=== PATIENT | male | born 1970 | race Caucasian/White ===

== ENCOUNTER → 2018-06-17 16:04 | Outpatient (REF) | payer OTHER, SELFPAY ==
[2018-06-20 16:42] LABS: 6-monoacetylmorphine Not Detected ng/mL (Cutoff: 25); Amphetamines Negative ng/mL (Cutoff: 500); Barbiturates Negative ng/mL (Cutoff: 200); Benzodiazepines Negative ng/mL (Cutoff: 100); Buprenorphine Not Detected ng/mL (Cutoff: 5); Cocaine Negative ng/mL (Cutoff: 150); Codeine Not Detected ng/mL (Cutoff: 25); Comment Normal; Creatinine, U 93.7 mg/dL; Dihydrocodeine Not Detected ng/mL (Cutoff: 25); EDDP Not Detected ng/mL (Cutoff: 25); Fentanyl Not Detected ng/mL (Cutoff: 2); Hydrocodone Not Detected ng/mL (Cutoff: 25); Hydromorphone Not Detected ng/mL (Cutoff: 25); Hydromorphone-3-beta-glucuroni Not Detected ng/mL (Cutoff: 100); Meperidine Not Detected ng/mL (Cutoff: 25); Methadone Not Detected ng/mL (Cutoff: 25); Morphine Not Detected ng/mL (Cutoff: 25); N-desmethyltapentadol Not Detected ng/mL (Cutoff: 50); Naloxone Not Detected ng/mL (Cutoff: 25); Norbuprenorphine Not Detected ng/mL (Cutoff: 5); Norfentanyl Not Detected ng/mL (Cutoff: 2); Norhydrocodone Not Detected ng/mL (Cutoff: 25); Normeperidine Not Detected ng/mL (Cutoff: 25); Noroxycodone Not Detected ng/mL (Cutoff: 25); Noroxymorphone Not Detected ng/mL (Cutoff: 25); O-desmethyltramadol Not Detected ng/mL (Cutoff: 25); Phencyclidine Negative ng/mL (Cutoff: 25); Propoxyphene Not Detected ng/mL (Cutoff: 25); Specific Gravity 1.014; Tapentadol Not Detected ng/mL (Cutoff: 25); Tetrahydrocannabinol Negative ng/mL (Cutoff: 50); Tramadol Not Detected ng/mL (Cutoff: 25); pH 5.5
== END ==
LOC: LBN 16:04
PROVIDERS: PCP Emergency Medicine; Visit Provider Nurse Practitioner Family
DX: G89.29 Other chronic pain (principal)
CPT/HCPCS: 80307; 80364

== ENCOUNTER 2018-09-30 09:24 | Outpatient (CLI) | payer MEDICAID, SELFPAY ==
--- NOTE | 2018-09-30 15:00 | DI.RAD_ITS ---
SYMPTOM/DIAGNOSIS: RT HIP PAIN, M25.551 RIGHT HIP AND PELVIS: The hip joint spaces are well maintained. There is mild bilateral acetabular spurring. The SI joints and pubic symphysis are unremarkable. IMPRESSION: Mild degenerative changes.
== END 2018-09-30 09:44 ==
PROVIDERS: PCP Emergency Medicine; Visit Provider Neurological Surgery
DX: M25.551 Pain in right hip (principal); M16.11 Unilateral primary osteoarthritis, right hip
CPT/HCPCS: 73502

== ENCOUNTER 2018-11-28 00:32 | Outpatient (CLI) | payer MEDICAID, SELFPAY ==
--- NOTE | 2018-11-28 08:30 | DI.RAD_ITS ---
SYMPTOM/DIAGNOSIS: CHRONIC RT HIP PAIN, M25.551, OTHER CHRONIC PAIN, G89.29 RIGHT HIP: A frontal image of the right hip demonstrates injection of contrast into the right hip joint. Please see Dr. Taylor's procedure report for further information.
[2018-11-28] MEDS: Omnipaque 300 MG/ML 10 ML BTL IJ (08:57)
[2018-11-28] MEDS: Bupivacaine 0.5% Pres-Free 10 ML VIAL 6 ML IJ (08:58)
[2018-11-28] MEDS: methylPREDNISolone ACETATE 80 MG/ML VIAL IM (08:58)
--- NOTE | 2018-11-28 22:26 | W.PROCNOTE ---
Date of service: 11/28/18 Time of Service: 09:28 Procedure Note Date of procedure: 11/28/18 Procedure: Right Hip Injection with Fluoroscopic Guidance Surgeon/Proceduralist/Physician: Remy Taylor Procedure Diagnosis: Right Hip Osteoarthritis Procedure Indications: Prasanna has had persistent pain of the RIGHT hip and flank. Noninvasive measures have been tried. To serve as both diagnostic and therapeutic, an injection under fluoroscopy was recommended. I had discussed the risks of the procedure and the patient elected to proceed. Procedure Description: Prasanna was greeted in the flouroscopy room. The correct side was identified and the consent was reviewed with the patient and signed. The patient was then placed in the supine position on the fluoroscopy table. The RIGHT hip was then prepped with Chloraprep. The anterolateral injection starting point was identiifed by bony landmarks and fluoroscopy. The skin and soft tissue in the tract of the injection was anesthetized with 1% Lidocaine. A spinal needle was then inserted deep into the hip joint at the level of the lateral femoral neck under fluoroscopic guidance. A small amount of Omnipaque solution was injected to confirm intraarticular placement. Once confirmed, the hip was injected with 6cc of 0.5% Bupivicaine and 80mg of Depo-Medrol. A bandaid was placed on the injection site. The patient tolerated the procedure well and noted improvement in pre-injection pain.
== END 2018-11-28 00:52 ==
PROVIDERS: PCP Emergency Medicine; Visit Provider Student in an Organized Health Care Education/Training Program
DX: M25.551 Pain in right hip (principal); M16.11 Unilateral primary osteoarthritis, right hip; G89.29 Other chronic pain
CPT/HCPCS: 20610; 77002; 73501; J1040

== ENCOUNTER 2019-02-19 10:55 | Outpatient (CLI) | payer MEDICAID, SELFPAY ==
--- NOTE | 2019-02-19 13:45 | DI.RAD_ITS ---
SYMPTOMS/DIAGNOSIS: WRIST PAIN/INJURY S/P FALL 2 WEEKS AGO, S69.90XA RIGHT WRIST: There is no evidence of a fracture or dislocation.
== END 2019-02-19 11:15 ==
PROVIDERS: PCP Emergency Medicine; Visit Provider Internal Medicine
DX: M25.531 Pain in right wrist (principal); S69.91XA Unspecified injury of right wrist, hand and finger(s), initial encounter
CPT/HCPCS: 73110

== ENCOUNTER 2019-04-12 08:51 | Outpatient (CLI) | payer MEDICAID, SELFPAY ==
[2019-04-12 09:41] LABS: HCT 46.5 % (40.0-50.0); HGB 16.1 g/dL (13.5-17.5); Mean Corp. HGB Concentration 34.6 g/dL (32.0-36.0); Mean Corpuscular Hemoglobin 29.4 pg (27.0-33.0); Mean Platelet Volume 11.4 fL (8.0-11.0); RBC 5.47 m/cumm (4.50-6.00); RBC Distribution Width 13.2 % (11.8-14.1); White Blood Cell Count 4.81 k/cumm (4.4-10.8)
[2019-04-12 10:22] LABS: ALT 62 U/L (12-78); AST 23 U/L (15-37); Albumin 4.1 g/dL (3.4-5.0); Alkaline Phosphatase 79 U/L (46-116); Anion Gap 10.7 mmol/L (3-11); BUN 24 mg/dL (7-18); Bilirubin, Total 0.4 mg/dL (0.2-1.0); C-Reactive Protein 0.42 mg/dL (0.0-0.3); CO2 26.3 mmol/L (21.0-32.0); CREATININE 1.26 mg/dL (0.70-1.30); Calcium 9.2 mg/dL (8.5-10.1); Chloride 102 mmol/L (98-107); Glucose 105 mg/dL (70-100); Potassium 4.3 mmol/L (3.5-5.1); Sodium 139 mmol/L (136-145); TSH 2.31 uIU/mL (0.358-3.74); Total Protein 7.2 g/dL (6.4-8.2)
[2019-04-12 10:26] LABS: Platelet Count 81 x1000/uL (130-400)
[2019-04-12 10:36] LABS: GGT 66 U/L (15-85)
== END 2019-04-12 09:11 ==
PROVIDERS: PCP Emergency Medicine; Visit Provider Emergency Medicine
DX: R53.83 Other fatigue (principal); E03.9 Hypothyroidism, unspecified
CPT/HCPCS: 36415; 80053; 85027; 82977; 84443; 86140

== ENCOUNTER 2019-10-21 00:41 | Outpatient (CLI) | payer MEDICAID, SELFPAY ==
--- NOTE | 2019-10-21 11:12 | ETT_ITS ---
APPROVED REPORT Exam: Exercise Treadmill Patient Location: Out-Patient Room/Bed: Stress Nurse: Marian Zavala RN BMI: 31.15 Baseline Rhythm: Sinus rhythm Indications: Chest pain. Pt arrives today with a 2 out of 10 constant chest pressure, that is tender to palpation over left chest wall. Pt reports daily chest pains and fluttering sensations. Pt reports a history of mitral valve prolapse. Medical History Medical History: Mitral valve proloapse, Depression Cardiac Medications: Mirapex for restless legs., Allergies: No known drug allergies Cardiac Risk Factors: FHX of CAD, Hyperlipidemia, Asthma Pretest Chest Pain Characteristics: Non-exertional Chest pain Exercise History: Physically active Lung Sounds: Clear to auscultation Heart Sounds: Regular Stress Test Details Test: Exercise stress testing was performed using a Bar protocol. Rest Stress HR Max Heart Rate (APMHR): 173 bpm Resting HR Supine: 80 bpm Target HR (85% APMHR): 147 bpm Resting HR Standin bpm Max HR Achieved: 182 bpm % of APMHR: 105 Recovery HR: 103 bpm HR response to stress: Normal HR response to stress BP Resting BP Supine: 128/80 mmHg Resting BP Standin/82 mmHg Max BP: 172/76 mmHg Recovery BP: 140/80 mmHg BP response to stress: Normal blood pressure response to stress. ECG Resting ECG: Sinus Rhythm ST Change: none Ectopy: none Stress ECG: Sinus Tachycardia ST Change: No significant ST segment changes. Arrhythmia: None Recovery ECG: Sinus Rhythm Recovery ST Change: No significant ST segment changes Clinical Reason for Termination: Fatigue, Dyspnea Exercise duration: 9 min31 sec Highest Stage Achieved: Stage 3: 3.4 mph at 14% grade. Exercise capacity: 11.01 METs Functional Capacity: Average Capacity Scale: Active Angina Score: Non-Limiting Stress ECG Conclusion 1. The patient exercised for 9 minutes and 30 seconds (11 METS) 2. There was no evidence of ischemia on the ECG portion of the exam. 3. The Worthington Score (9) estimates an annual cardiovascular mortality of 0% and a five year survival of 95%. Using the Worthington Score there is a low probability of any angiographic coronary disease. Protocol Used: Bar Protocol Stress Test Summary STAGE Time (mins) Speed (mph) Grade (%) HR BP SYMPTOMS METS Supine 80 128/80 2 out of 10 chest pressure at rest, pre-exercise. Standing 88 130/82 1 3 1.7 10 111 132/80 4.6 2 6 2.5 12 133 144/82 7 3 9 3.4 14 174 164/80 10.2 4 12 4.2 16 174 No change in quality or severity of the 2 out of 10 chest pressure. 12.9 17.2 1 min recovery 125 172/76 3 min recovery 108 170/78 6 min recovery 105 150/80 9 min recovery 107 140/80
--- NOTE | 2019-10-21 11:25 | DI.RAD_ITS ---
EXAM: XR CHEST 2V PA LATERAL INDICATION: chest pain,R07.9. COMPARISON: 01/12/2017 TECHNIQUE: 2D digital imaging was performed. FINDINGS: Heart size is normal. The lungs are suboptimally inflated but clear. No infiltrate, effusion or pne umothorax is seen. IMPRESSION: No acute abnormality.
== END 2019-10-21 01:01 ==
PROVIDERS: PCP Emergency Medicine; Visit Provider Emergency Medicine
DX: R07.9 Chest pain, unspecified (principal); R00.0 Tachycardia, unspecified; E78.5 Hyperlipidemia, unspecified; J45.909 Unspecified asthma, uncomplicated; Z82.49 Family history of ischemic heart disease and other diseases of the circulatory system; Z86.79 Personal history of other diseases of the circulatory system
CPT/HCPCS: 71046; 93017

== ENCOUNTER 2019-11-04 01:14 | Outpatient (CLI) | payer MEDICAID, SELFPAY ==
--- NOTE | 2019-11-04 07:46 | DI.US_ITS ---
APPROVED REPORT EXAM: Comprehensive 2D, Doppler, and color-flow Echocardiogram Patient Location: Out-Patient Bottom Painter: Ursula Sanderson RDCS (AE) Rhythm: NSR Indications: chest pain r07.09 Conclusion Left Ventricle : The left ventricle is normal size. There is normal left ventricular wall thickness. Left ventricular systolic function is normal. There is normal LV segmental wall motion. The left ve ntricular diastolic function is normal. LVEF is estimated to be 55-60%. Right Ventricle : The right ventricle is normal in size. The right ventricular systolic function appe ars normal. Atria : The left atrium size is normal. The right atrium size is normal. Aortic Valve : Aortic valve is trileaflet. There is no aortic valvular stenosis. Trace aortic regurgi tation. Mitral Valve : Mitral valve leaflets are thickened. trivial mitral regurgitation without significant prolapse. No evidence of mitral valve stenosis. Tricuspid Valve : Tricuspid valve leaflets are mildly thickened but open well. Trivial to mild tricus pid regurgitation. Great Vessels : The aortic root is normal in size. The ascending aorta size is normal. The IVC was n ot well visualized. There is no prior echocardiogram available for comparison. Wall motion Left Ventricle The left ventricle is normal size. Left ventricular systolic function is normal. There is normal left ventricular wall thickness. There is normal LV segmental wall motion. The left ventricular diastolic function is normal. LVEF is estimated to be 55-60%. Right Ventricle The right ventricle is normal in size. The right ventricular systolic function appears normal. Atria The left atrium size is normal. The right atrium size is normal. Aortic Valve Aortic valve is trileaflet. There is no aortic valvular stenosis. Trace aortic regurgitation. Mitral Valve Mitral valve leaflets are thickened. No evidence of mitral valve stenosis. trivial mitral regurgitati on without significant prolapse. Tricuspid Valve Tricuspid valve leaflets are mildly thickened but open well. Trivial to mild tricuspid regurgitation. Pulmonic Valve Mild pulmonic regurgitation. Great Vessels The aortic root is normal in size. The ascending aorta size is normal. The IVC was not well visualize d. Pericardium There is no pericardial effusion. 2D Dimensions IVSd 1.00 cm M: 0.6-1.2 LV EDV A2C 77.00 mL PWd 1.05 cm M: 0.6 - 1.2 LV EDV A4C 74.80 mL LVDd 4.05 cm M: 4.2 - 5.8 LA Volume Index A2C 16.61 mL/m2 LVDs 2.65 cm M: 2.5 - 4.0 LA Volume Index A4C 23.26 mL/m2 Aortic Root 3.25 cm M: 3.1 - 3.7 LA Volume Index Biplane 20.19 mL/m2 RVID Base (AP4) 3.82 cm (M/F) 2.5-4.1 LA Area A4C 16.84 cm2 RA Area A4C 12.31 cm2 LA Area A2C 14.62 cm2 LVOT 1.95 cm (M/F) 1.5-2.5 EF AP4 63.90 % Ascending Aorta 2.95 cm M: 2.6 - 3.4 EF AP2 54.81 % LVEF (Teich) 63.12 % EF BP 57.91 % LVEF (Hartley's) 57.91 % M: 52 - 72 LV Volume 58.08 mL M: 62 - 150 LV Volume Index 27.78 mL/m2 M: 34 - 74 FS 33.75 % LV Diastology E/A Ratio 1.2 MED E' 0.09 (>0.07 m/s) LV E/e MED 8.20 (<14) LAT E' 0.12 (>0.1 m/s) LV E/e LAT 5.95 (<14) Aortic Valve LVOT Area 3.05 cm2 LVOT Vmax 0.98 m/s LVOT Mean Juan Carlos. 0.73 m/s LVOT Peak Gr. 3.8 mmHg LVOT Mean Gr. 2.3 mmHg AoV Area/ BSA (Vmax) 1.01 cm2/m2 LVOT VTI 0.167 m AoV Vmax 1.41 (0.5-1.3 m/s) CAREN Mean Juan Carlos. Index 1.10 cm2/m2 AoV Mean Juan Carlos. 0.96 m/s AoV Peak Grad 8.0 mmHg AoV Mean Grad 4.1 (<5 mmHg) AoV VTI 0.281 (0.18-0.25 m) AoV Area VTI 2.08 (2.5-4.5 cm2) AoV Area/ BSA (VTI) 0.99 cm/m2 Mitral Valve MV E Max Juan Carlos. 0.70 (0.4-1.3 m/s) MV A Velocity 0.60 (0.4-1.3 m/s) E/A Ratio 1.11 MV Decel. Time 192.35 (160-240 msec) MV PHT 55.79 msec MVA PHT 3.90 cm2 Pulmonary Valve PV Peak Velocity 1.06 (0.5-1.5 m/s) RVOT Peak Gr. 1.44 mmHg RVOT Peak Juan Carlos. 0.60 m/s RVOT Mean Gr. 1.00 mmHg RVOT VTI 0.10 m Tricuspid Valve TR P. Velocity 2.18 m/s TV Regurg Vmax 2.18 m/s RAP Estimate 3.00 mmHg RVSP 21.93 mmHg TR P. Gradient 18.90 mmHg
== END 2019-11-04 01:34 ==
PROVIDERS: PCP Emergency Medicine; Visit Provider Emergency Medicine
DX: R07.9 Chest pain, unspecified (principal); E78.5 Hyperlipidemia, unspecified; Z82.49 Family history of ischemic heart disease and other diseases of the circulatory system
CPT/HCPCS: 93306

== ENCOUNTER 2020-01-14 07:52 | Outpatient (CLI) | payer MEDICAID, SELFPAY ==
[2020-01-14 08:14] LABS: Abs Immature Grans 0.02 k/cumm (0.0-0.09); Absolute Basophil Count 0.01 k/cumm (0.0-0.2); Absolute Eosinophil Count 0.13 k/cumm (0.0-0.7); Absolute Lymphocyte Count 2.29 k/cumm (1.2-3.4); Absolute Monocyte Count 0.48 k/cumm (0.11-0.7); Absolute Neutrophil Count 2.17 k/cumm (1.2-6.7); Basophils % 0.2; Eosinophils % 2.5; HCT 47.2 % (40.0-50.0); HGB 16.3 g/dL (13.5-17.5); Immature Grans % 0.4 %; Lymphocytes % 44.9; Mean Corp. HGB Concentration 34.5 g/dL (32.0-36.0); Mean Corpuscular Hemoglobin 29.1 pg (27.0-33.0); Mean Corpuscular Volume 84.3 fL (80-95); Mean Platelet Volume 11.7 fL (8.0-11.0); Monocytes % 9.4; Neutrophils % 42.6; RBC Distribution Width 13.1 % (11.8-14.1)
[2020-01-14 08:36] LABS: Diff Comment Diff Reviewed; Platelet Count 66 x1000/uL (130-400); RBC Morphology Normal
== END 2020-01-14 08:12 ==
PROVIDERS: PCP Emergency Medicine; Visit Provider Nurse Practitioner
DX: D69.6 Thrombocytopenia, unspecified (principal)
CPT/HCPCS: 36415; 85025

== ENCOUNTER 2020-04-01 11:29 | Outpatient (CLI) | payer MEDICAID, SELFPAY ==
--- NOTE | 2020-04-01 10:00 | DI.RAD_ITS ---
EXAM: XR HIP RT COMPLETE AP PELVIS INDICATION: R hip pain. COMPARISON: MR MR lower joint RT wo from 10/16/2018 TECHNIQUE: 2D digital imaging was performed. FINDINGS: There is mild acetabular spurring the right superior acetabulum. There is moderate spurring from th e left superior acetabulum. The hip joint spaces are well maintained. The femoral head contours az ear normal. The SI joints and pubic symphysis are unremarkable. Bones are normally mineralized. IMPRESSION: Mild degenerative changes of both hips. DATA REPOSITORY: RADIATION DOSE DELIVERED:
== END 2020-04-01 11:49 ==
PROVIDERS: PCP Emergency Medicine; Referring Provider Emergency Medicine; Visit Provider Physician Assistant
DX: M25.551 Pain in right hip (principal); M16.0 Bilateral primary osteoarthritis of hip
CPT/HCPCS: 73502

== ENCOUNTER 2020-04-07 01:39 | Outpatient (CLI) | payer MEDICAID, SELFPAY ==
--- NOTE | 2020-04-07 13:45 | DI.MRI_ITS ---
EXAM: MR LOWER JOINT RT WO CLINICAL HISTORY: PAIN ,M25.551 PAIN RT HIP. TECHNIQUE: Multiplanar multisequence MRI was performed. COMPARISON: MR MR lower joint RT wo from 10/16/2018 FINDINGS: MR examination of the hip was performed according to the usual protocol. Bones: No bony signal abnormality seen in the region surveyed. Articular cartilage: Probable slight thinning articular cartilage right and left hip. Tendons: Minimally increased signal at gluteal attachments on the right femur. No other significant tendinous abnormality seen in either hip. This is a very subtle finding. Muscles: Abnormal signal identified. Internal pelvis: No adenopathy, no mass identified. Unremarkable appearance of urinary bladder, pros dan, seminal vesicles, and rectosigmoid. IMPRESSION: Probable mild bilateral articular cartilage thinning of the hips, minimally abnormal signal consisten t with tendinosis at the gluteus attachments on the greater trochanter on the right. No other signif icant findings. DATA REPOSITORY:
== END 2020-04-07 01:59 ==
PROVIDERS: PCP Emergency Medicine; Visit Provider Student in an Organized Health Care Education/Training Program
DX: M25.551 Pain in right hip (principal); M76.01 Gluteal tendinitis, right hip
CPT/HCPCS: 73721

== ENCOUNTER 2020-04-08 02:09 | Outpatient (CLI) | payer MEDICAID, SELFPAY ==
--- NOTE | 2020-04-08 07:30 | DI.RAD_ITS ---
EXAM: RF JOINT INJECTION FLUORO GUID CLINICAL HISTORY: CHRONIC HIP PAIN,M25.559,G89.29 TECHNIQUE: COMPARISON: No exams were available for comparison FINDINGS: Fluoroscopy was utilized by Dr. Taylor during right hip injection. Hard copy shows right hip intra -articular injection. IMPRESSION:
[2020-04-08] MEDS: Bupivacaine 0.5% Pres-Free 10 ML VIAL 6 ML IJ (15:18)
[2020-04-08] MEDS: Omnipaque 300 MG/ML 10 ML BTL IJ (15:19)
[2020-04-08] MEDS: methylPREDNISolone ACETATE 80 MG/ML VIAL IM (15:20)
--- NOTE | 2020-04-08 17:50 | W.PROCNOTE ---
Date of service: 04/08/20 Time of Service: 15:15 Procedure Note Date of procedure: 04/08/20 Procedure: Right Hip Injection with Fluoroscopic Guidance Surgeon/Proceduralist/Physician: Remy Taylor Procedure Diagnosis: Right Hip Pain, Labral Tear Procedure Indications: Prasanna has had persistent pain of the RIGHT hip and groin. Noninvasive measures have been tried. To serve as both diagnostic and therapeutic, an injection under fluoroscopy was recommended. I had discussed the risks of the procedure and the patient elected to proceed. Procedure Description: Prasanna was greeted in the flouroscopy room. The correct side was identified and the consent was reviewed with the patient and signed. The patient was then placed in the supine position on the fluoroscopy table. The RIGHT hip was then prepped with Chloraprep. The anterolateral injection starting point was identiifed by bony landmarks and fluoroscopy. The skin and soft tissue in the tract of the injection was anesthetized with 1% Lidocaine. A spinal needle was then inserted deep into the hip joint at the level of the lateral femoral neck under fluoroscopic guidance. A small amount of Omnipaque solution was injected to confirm intraarticular placement. Once confirmed, the hip was injected with 6cc of 0.5% Bupivicaine and 80mg of Depo-Medrol. A bandaid was placed on the injection site. The patient tolerated the procedure well.
== END 2020-04-08 02:29 ==
PROVIDERS: PCP Emergency Medicine; Visit Provider Student in an Organized Health Care Education/Training Program
DX: M25.551 Pain in right hip (principal); G89.29 Other chronic pain
CPT/HCPCS: 20610; 77002; J1040

== ENCOUNTER 2020-04-27 08:00 | Outpatient (CLI) | payer MEDICAID, SELFPAY ==
[2020-04-30 02:37] LABS: SARS-CoV-2 RNA Undetected (Undetected); SARS-CoV-2 Specimen Source Nasopharynx
== END 2020-04-27 08:20 ==
PROVIDERS: PCP Emergency Medicine; Visit Provider Emergency Medicine
DX: Z11.59 Encounter for screening for other viral diseases (principal)
CPT/HCPCS: U0003

== ENCOUNTER 2020-05-31 08:15 | Outpatient (CLI) | payer MEDICAID, SELFPAY ==
--- NOTE | 2020-05-31 08:00 | DI.RAD_ITS ---
EXAM: XR PELVIS AP CLINICAL HISTORY: preoperative template. TECHNIQUE: 2D digital imaging was performed. COMPARISON: CR XR HIP RT COMPLETE AP PELVIS from 04/01/2020 FINDINGS: BONES: No acute fracture is present. No bony destructive lesion is seen. JOINTS: No dislocation present. Mild joint space narrowing is present. There is acetabular spurring, greater on the left superiorly. SOFT TISSUE: Normal. IMPRESSION: Stable degenerative changes of the left hip. DATA REPOSITORY: RADIATION DOSE DELIVERED:
== END 2020-05-31 08:35 ==
PROVIDERS: PCP Emergency Medicine; Referring Provider Emergency Medicine; Visit Provider Student in an Organized Health Care Education/Training Program
DX: M16.12 Unilateral primary osteoarthritis, left hip (principal)
CPT/HCPCS: 72170

== ENCOUNTER 2020-06-11 01:46 | Outpatient (CLI) | payer MEDICAID, SELFPAY ==
[2020-06-11 10:15] LABS: HGB 15.9 g/dL (13.5-17.5); MCH 29.1 pg (27.0-33.0); MCHC 33.8 % (32.0-36.0); MCV 85.9 fL (80-95); MPV 12.1 fL (8.0-11.0); RBC 5.47 10^6/uL (4.36-5.78); RDW-SD 40.4 fL; WBC 4.72 10^3/uL (4.4-10.8)
[2020-06-11 10:49] LABS: Platelet Count 65 10^3/uL (130-400)
[2020-06-11 11:15] LABS: Anion Gap 11.3 mmol/L (3-11); BUN 23 mg/dL (7-18); CO2 24.7 mmol/L (21.0-32.0); CREATININE 1.27 mg/dL (0.70-1.30); Calcium 9.2 mg/dL (8.5-10.1); Chloride 104 mmol/L (98-107); Glucose 95 mg/dL (74-106); Potassium 4.2 mmol/L (3.5-5.1); Sodium 140 mmol/L (136-145)
[2020-06-12 18:08] LABS: COVID-19 RT-PCR Result NEGATIVE (Negative)
== END 2020-06-11 02:06 ==
PROVIDERS: PCP Emergency Medicine; Visit Provider Student in an Organized Health Care Education/Training Program
DX: M25.551 Pain in right hip (principal); G89.29 Other chronic pain
CPT/HCPCS: 36415; 80048; 85027; 86850; 86900; 86901; U0003

== ENCOUNTER 2020-06-15 09:27 | Observation (INO) | payer MEDICAID, SELFPAY ==
[2020-06-15] VITALS (11 sets, daily range): BP systolic 90–130; BP diastolic 51–84; PULSE 64–87; RESP 16–24; TEMP 35.7–36.8; O2SAT 89–99
[2020-06-15] MEDS: Celecoxib 200 MG CAP 400 MG PO (09:57)
[2020-06-15] MEDS: Acetaminophen 500 MG TAB 1000 MG PO (09:57)
[2020-06-15] MEDS: Lactated Ringers 1,000 ML 80 ML IV ×2 (09:58→14:45)
--- NOTE | 2020-06-15 10:09 | W.PM.DS.N ---
Date of service: 06/15/20 Time of Service: 17:14 DS: Diagnosis Discharge Diagnosis (1) Primary localized osteoarthritis of right hip: Status: Acute Discharge Plan Disposition Patient Disposition: HOME Condition: Good Discharge Details Reason For Visit: RIGHT HIP DJD Admit Date/Time: 06/15/20 09:27 Admit Provider: Remy Taylor Attending Provider: Remy Taylor Primary Care Provider: Kurtis Kingsley Hospital Course Hospital Course: Patient was admitted to the medical/surgical floor following the procedure. The surgery was tolerated well without any notable medical, surgical, or anesthetic complications. Mobilization began postoperatively. He was voiding spontaneously. Vitals were stable. Physical therapy worked with the patient and was cleared for discharge home. No acute medical issues. Pain was controlled on oral regimen. Home Meds and New Rx's Prescriptions: New aspirin 81 mg tablet,delayed release (DR/EC) 81 mg PO BID Qty: 60 RF: 0 acetaminophen 500 mg tablet 1,000 mg PO Q8H PRN (Reason: pain) Qty: 90 RF: 3 pantoprazole 40 mg tablet,delayed release (DR/EC) 40 mg PO DAILY Qty: 30 RF: 0 docusate sodium [Colace] 100 mg capsule 100 mg PO BID PRNQty: 10 RF: 0 ibuprofen 600 mg tablet 600 mg PO TID PRNQty: 90 RF: 3 oxycodone 5 mg tablet 5 mg PO Q4H Qty: 18 RF: 0 Continued cetirizine 10 mg tablet 10 mg PO DAILY Qty: 90 RF: 3 albuterol sulfate 90 mcg/actuation HFA aerosol inhaler 2 puff IH QID Qty: 18 RF: 1 pramipexole [Mirapex] 0.5 mg tablet 0.5 mg PO HS Qty: 90 RF: 3 Discharge Instructions Additional Instructions: Total Hip Discharge Instructions Activity: The most important activity is to walk. You should try to take short walks a few times a day. You have no restrictions on movement or positioning, but do not try to force what you do. You will find some stiffness and weakness with hip flexion (lifting your knee). Do not try to strengthen this too early, continue to practice walking and stairs and this will come. - Outpatient physical therapy can be helpful to help return you to a normal gait and improve your flexibility and strength. This can start around 2 weeks. For some patients, it?s not necessary. Usually this is determined at the time of discharge or at the first post-operative visit. - You should wear the YESICA hose on both legs for 2 weeks. Dressing: Keep the surgical dressing in place for at least one week. After the first week it may be removed and replace with light gauze and tape or nothing. It may get wet after 3 days but avoid soaking the dressing. If it gets wet, just lightly pat dry. It is important to always keep some gauze between skin folds, especially when you are sitting. Spend some time with the wound exposed when you are lying flat as the incision does wrinkle onto itself. Medications: - You should take Tylenol and an anti-inflammatory Celebrex as your primary pain control medications - You have been prescribed a stronger pain medication Oxycodone for breakthrough pain, take as needed as prescribed. - You have also been prescribed a stomach acid reduction agent Pantoprozole to help reduce stomach acid and reflux. - You will be taking Aspirin 81mg twice a day for DVT prevention unless instructed otherwise. - If you have constipation you should take Colace or Miralax (both [id number]). It takes most people 3-4 days to have a bowel movement. Follow-up: 2 weeks Stand Alone Forms: Nursing Discharge Form Referrals: Remy Taylor MD [ [facility] STAFF PHYSICIAN] - 06/28/20 9:00 am Activity:: Activity as Tolerated Equipment/Supplies:: Walker Diet:: Normal Diet Discharge Orders Discharge Orders: Discharge Order (Routine); Ordered 06/15/20 Ordered By: Remy Taylor DS: Summary Status at Discharge Functional status at discharge: uses cane/walker Overall status at discharge: patient is progressing back to baseline Mental Status: mental status grossly normal Speech and Movement: speech and movement normal Mood: congruent mood Affect: normal affect Exam Psych Mental Status: mental status grossly normal Speech and Movement: speech and movement normal Mood: congruent mood Affect: normal affect DS: Data Vitals/I&O Vitals and I&O: Vital Signs Temperature 36.8 C 06/15/20 09:35 Pulse 87 06/15/20 09:35 Pulse Rhythm Regular 06/15/20 09:35 Respiratory Rate 16 06/15/20 09:35 Respiratory Effort 06/15/20 09:35 Respiratory Depth Normal 06/15/20 09:35 Blood Pressure 130/84 06/15/20 09:35 Pulse Oximetry 98 06/15/20 09:35 Oxygen Delivery Method Room Air 06/15/20 09:35 Oxygen Flow Rate 0 06/15/20 09:35 Intake & Output 06/14/20 06/14/20 06/15/20 11:59 23:59 11:59 Weight 97.522 kg 97.7 kg Other: Urine Appearance Clear Clear PFSH Medical History Achilles tendinitis of right lower extremity Asthma Chronic hip pain (Acute) Chronic ITP (idiopathic thrombocytopenia) Costochondritis Depressive disorder Hyperlipidemia Multiple lipomas Osteoarthritis (arthritis due to wear and tear of joints) Restless legs Retrocalcaneal bursitis (back of heel) Thrombocytopenia Surgical History Colonoscopy - MAC (01/04/18) Hx of knee surgery (Acute) with Dr. Chaparro Spinal Surgery Discectomy x 2 Dr. Villalba x2 Vasectomy (~2004) Family History Mother Depression Father Essential hypertension Hyperlipidemia Sister No problems noted. Brother No problems noted. Grandfather Essential hypertension Hyperlipidemia Grandfather No problems noted. Grandmother Alzheimer disease Grandmother Neoplasm Son ADHD Son No problems noted. Son No problems noted. 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
--- NOTE | 2020-06-15 12:15 | DI.RAD_ITS ---
EXAM: XR HIP RT IN OR CLINICAL HISTORY: Primary localized osteoarthritis of right hiP TECHNIQUE: 2D and realtime digital imaging was performed. CONTRAST MATERIAL: Refer to procedure report. COMPARISON: No exams were available for comparison FINDINGS: Fluoroscopy was provided for Dr. Taylor during the performance of a right total hip arthroplasty. Please refer to the procedure report for complete details. Fluoro time: 37.9 seconds IMPRESSION: RADIATION DOSE DELIVERED:
[2020-06-15] MEDS: ceFAZolin 2 GM/50 ML BAG IVPB (12:37)
[2020-06-15] MEDS: Bupivacaine 0.25% Pres-Free 30 ML VIAL (13:55)
[2020-06-15] MEDS: Ketorolac 30 MG/ML VIAL (13:56)
--- NOTE | 2020-06-15 14:21 | W.PM.OP ---
Date of service: 06/15/20 Time of Service: 14:21 Operative Note Operative Note DATE OF PROCEDURE: 06/15/20 PRE-OP DIAGNOSIS: Right Hip Osteoarthritis and Labral tear POST-OP DIAGNOSIS: same PROCEDURE: Right Anterior Total Hip Arthroplasty SURGEON: Remy Taylor TRANSITION OF CARE SPECIALIST: Sary Torrez ANESTHESIA: GETA ESTIMATED BLOOD LOSS: 600 PATHOLOGY: none sent TOURNIQUET TIME: 0 COMPLICATIONS: None Patient was transported to: PACU Patient's condition: stable Implants: 1. Depuy [place] Acetabular Component, 54 mm 2. Depuy Acetabular Liner, [id number] 3. Depuy Corail Standard Collared Femoral Stem, Size 13 4. Depuy Altrx Ceramic Femoral Head, Size 36+5mm Indications: I have seen Prasanna in clinic for symptoms of hip arthritis, confirmed with radiographic findings. He has exhausted nonoperative methods and was having significant limitations in daily function and desired better function and less pain. I discussed the technical details of a hip replacement. I explained the risks of the procedure to include, but not limited to, bleeding, infection, pain, stiffness, fracture, damage to nerves and vessels, damage to muscles and tendons, loosening, instability, leg length inequality, need for repeat procedure, blood clot and cardiopulmonary demise. Despite these risks, Prasanna elected to proceed. Findings: There loss of cartilage over the superior femoral head. This also corresponded to an area of delaminated superior acetabular cartilage. Procedure Description: Prasanna was greeted in the preoperative holding area where the correct side was identified and marked. The consent was reviewed with the patient and signed. The history and physical was updated. All questions were answered. Prasanna was taken back to the operating room. A general anesthetic was administered. The patient was placed into the supine position on the operating room table. The patient was then positioned onto the ARCH table. Both feet were wrapped with Webrill cotton wrap along with Coban. The feet were placed in specialized boots for the ARCH table, well seated within the boot and secured. SCDs were applied. The patient was then slid down onto a peroneal post and the nonoperative leg was secured in a leg atkinson attached to the table. The operative side was placed into the ARCH table attachment and bed height and positioning was secured. A preoperative AP pelvis was obtained to serve as a reference for determining leg lengths. Prophylactic antibiotics in the form of Cefazolin were administered. 1g of Tranxemic Acid was given intravenously within 30 minutes of incision. The right leg was then prepped with Chloraprep and draped in a standard fashion. A second prep with Chloraprep was performed prior to placement of a shower-curtain type drape with Iodine impregnated skin protection. A timeout to confirm correct identity, side and site, procedure, allergies, anesthesia, and medical concerns was performed. An obliquely oriented incision was made starting lateral to the ASIS and running distal over the Tensor Fascia Jess (TFL) muscle belly toward the fibular head, approximately 10cm. The skin and soft tissue was dissected sharply, through Peyman?s fascia, and to the fascia of the TFL. With the fascia and superior border of the IT band identified, the fascia was incised with a new knife just above any perforators from the IT band. The TFL muscle belly was bluntly dissected away from the fascia and moved laterally. The fat between TFL and rectus was identified to ensure the dissection was not within the TFL. Blunt dissection created space between abductors and the capsule and retractor was placed over the lateral femoral neck. The fibers of the rectus femoris tendon were identified and these were freed from the anterior capsule. A second cobra retractor was placed around the medial femoral neck. The TFL was further retracted laterally to show the deep fascia. Careful dissection through this layer identified three main crossing vessels of the lateral femoral circumflex. These were cauterized in multiple locations and then cut without any noticeable bleeding. The TFL was further released bluntly from the deep fascia to expose anterior hip capsule and fat The Bryan orthopaedic retractor was then placed beneath the TFL and against sartorius and medial soft tissues to protect and retract the soft tissues. A T-capsulotomy was then performed starting at the superior lateral acetabulum and moving distally to the intertrochanteric ridge. These capsular flaps were tagged with a No. 1 Ethibond and elevated from within. The capsular flaps were released to the shoulder of the lateral neck and to the lesser trochanter to give excellent visualization of the proximal femur. A neck osteotomy was performed using an oscillating saw based on preoperative templates. This cut started in the shoulder and of the lateral neck and exited medially. The saw was at all times directed medially to avoid injury to the greater trochanter. 6cm of traction was applied to the leg and the osteotomy opened. The femoral head was removed with a corkscrew, making sure to protect the TFL on its exit. This was measured on the back table to determing the starting reamer size. Portions of the rectus obscuring visualization were minimally elevated off the superior acetabulum. An anterior retractor was placed over the anterior wall between capsule and labrum and attached to the Gripper retraction system. A posterior retractor was placed similarly. This provided excellent visualization. The contents of the cotyloid fossa were removed with electrocautery and the labrum was removed with a knife. There was an area of the superior femoral head which was devoid of cartilage and there was an area of delaminated cartilage from the superior acetabulum. Acetabular reaming began with a 48mm reamer. This first reaming was directed anterior to posterior and medial to get down to the true floor. This was inspected and reamed until the true floor was reached. The anterior retractor was then released and entry and exit was provided by traction on the capsular flaps. I then reamed sequentially up to a 54mm reamer where good fit was obtained. The larger reamers were oriented based on anatomical reference of the anterior and lateral hendrix to ensure proper abduction and anteversion. Positioning and size was confirmed with the fluoroscopy. A 54mm Depuy [place] acetabular component was selected. The acetabulum was reamed around the periphery with the selected acetabular size to prevent a rim fit. The deep tissues were irrigated. The acetabular component was then impacted in a position of about 40-45 degrees of abduction and 15-20 degrees of anteversion, using the patient?s anatomy as the ultimate landmark. Fluoroscopy was used to confirm this. There was excellent chiropractic physician of the acetabular component and the inserting handle was removed. The acetabular liner, Depuy [id number] polyethylene liner, was inserted and lined up with the tines of the acetabular component. There was no soft tissue interposition. The liner was then impacted into position and confirmed to be well-seated. A portion of the zuly-articular cocktail was then injected around the acetabulum into the capsule and periosteum. This cocktail consisted of 50cc of 0.25% Bupivicaine and 20cc of Exparel, expanded to a total of 120cc. Traction was released from the femur. The leg was rotated to 120 degrees. Any remaining medial capsule was released until the lesser trochanter was easily palpable. A Sanchez retractor was placed medially. The lateral capsule was further released into the shoulder to allow access to the greater trochanter. A Sanchez retractor was placed over the greater trochanter which allowed the trochanter to flip in front of the capsule for excellent exposure. The leg was brought down into maximal extension and 20 degrees of adduction while ensuring there was no impingement on the acetabulum. Any remnant capsule within the trochanter was released. Piriformis and obturator externis were identified and protected. There was excellent access to the proximal femur. The lateral neck remnant was removed with a rongeur. A blunt canal probe was used to identify the canal and trajectory for later broaching. A box osteotome initiated the broach course. A small curved rasp and a curved curette were used to work laterally. Broaching then began with a size 8 Corail broach. This was inserted manually around the trochanter and into the canal before mallet blows. The broach was seated to a few millimeters below the cut level based on the neck cut and the preoperative template. Sequential broaching was continued with the MZL [employer] pneumatic broaching device until a tight fit was obtained with good rotational control of the femur. A trial standard neck was inserted along with a +5 trial head. The leg was brought out of extension and adduction and then reduced with traction and internal rotation. The leg was stable anteriorly in a position of 30 degrees of extension and 90 degrees of external rotation. Fluoroscopy was used to ensure there was no fracture and the stem was seated well. Leg lengths were checked with an AP pelvis and pelvic reference points. [employer] navigation system was used to confirm appropriate positioning and leg length and offset. Once content with the desired offset and leg lengths, the leg was brought back into extension, external rotation and adduction. The periosteum and surrounding tissue was injected with remaining portion of the zuly-articular cocktail. The proximal femur was irrigated as well as the deep tissues. The Depuy Corail standard collared stem, size 13, was then manually inserted into the proximal femur making sure to control rotation. It was then malleted into position with light blows, giving breaks to allow bone expansion and decrease risk of fracture. The selected Depuy Altrx Ceramic Head, size 36+5mm, was then placed onto the clean and dry trunnion and secured with impaction onto the tapered fit. The leg was brought back out of extension and adduction and reduced with traction and internal rotation. Stability was confirmed with no shuck at 90 degrees of external rotation and 30 degrees of extension. No impingement through range of motion arc. Final x-ray images were obtained with fluoroscopy to confirm adequate positioning and no intraoperative fracture. The deep tissues were thoroughly irrigated with Irrisept chlorhexadine solution. The second dose of TXA 1g was administered intravenously.The capsule was then reapproximated with the previously placed Ethibond sutures. The TFL fascia was finally closed with a No. 2 Stratafix, barbed suture. Deep tissues were then reapproximated with 0 Vicryl and a running 2-0 Vicryl. The skin was closed with a running 4-0 Monocryl in a subcuticular fashion. This was reinforced with skin glue. A Mepilex silver dressing was applied. At the end of the case, all counts were correct. Prasanna was transferred to the hospital bed without difficulty and suffering no apparent complication. Prasanna has a good prognosis. Physical therapy will start today and without restrictions, weight-bearing as tolerated. Aspirin 81mg BID will be used for DVT prophylaxis.
[2020-06-15] MEDS: fentaNYL 100 MCG/2 ML VIAL IVP (15:33)
[2020-06-15] MEDS: ceFAZolin 1 GM/50 ML BAG IVPB (16:20)
--- NOTE | 2020-06-15 16:24 | IN_ITS ---
Date of service: 06/15/20 Time of Service: 16:24 PT Notes Visit Reasons: RIGHT HIP DJD Physical Therapy Inpatient Initial Evaluation Date: 06/15/2020 Referring Doctor: Remy Taylor MD PT Orders: PT CONSULT: Status post Ortho surgery Precautions: Fall. Standard. WBAT on right LE. Patient Profile/Admitting Diagnosis: Kwadwo is a 49-year-old male with primary osteoarthritis of the right hip and is status post right total hip arthroplasty on postoperative day 0. PMHX: Medical History Achilles tendinitis of right lower extremity Asthma Chronic hip pain (Acute) Chronic ITP (idiopathic thrombocytopenia) Costochondritis Depressive disorder Hyperlipidemia Multiple lipomas Osteoarthritis (arthritis due to wear and tear of joints) Restless legs Retrocalcaneal bursitis (back of heel) Thrombocytopenia Surgical History Colonoscopy - MAC (01/04/18) Spinal Surgery Discectomy x 2 Dr. Villalba x2 Vasectomy (~2004) Social History/Home Situation: Lives with in a private home with 4 steps to enter with bilateral rails. Equipment Owned/DME: None. Subjective: Agreeable to PT consult. Reported some mild lightheadedness in sitting but felt better later on. Complains of 3/10 in the right hip but managed to tolerate this afternoon's activities. Objective: General Observation: Bilateral TEDS on. Mepilex Ag over surgical incision. IV in R UE. Mental Status: Alert and oriented x 4 Pain: 3/10 in the right ROM: Right Upper Extremity: Shoulder Flexion WFL. Shoulder abduction WFL. Elbow flexion WFL. Wrist flexion WFL. Opening and closing of hand WFL. Left Upper Extremity: Shoulder Flexion WFL. Shoulder abduction WFL. Elbow flexion WFL. Wrist flexion WFL. Opening and closing of hand WFL. Right Lower Extremity: Hip flexion WFL. Hip abduction WFL. Knee flexion WFL. Ankle dorsiflexion WFL. Ankle plantarflexion WFL. Left Lower Extremity: Hip flexion WFL. Hip abduction WFL. Knee flexion WFL. Ankle dorsiflexion WFL. Ankle plantarflexion WFL. Strength: Right Upper Extremity: Shoulder flexors 5/5. Shoulder abductors 5/5. Elbow flexors 5/5. Elbow extensors 5/5. Armhole Baster Jumpbasting strong. Left Upper Extremity: Shoulder flexors 5/5. Shoulder abductors 5/5. Elbow flexors 5/5. Elbow extensors 5/5. Armhole Baster Jumpbasting strong. Right Lower Extremity: Hip flexors 4/5. Hip abductors 4/5. Knee flexors 5/5. Knee extensors 5/5. Ankle dorsiflexors 5/5. Ankle plantarflexors 5/5. Left Lower Extremity:Hip flexors 5/5. Hip abductors 5/5. Knee flexors 5/5. Knee extensors 5/5. Ankle dorsiflexors 5/5. Ankle plantarflexors 5/5. Sensation: Intact as to pain and pressure on bilateral lower extremities. Bed Mobility/Transfers: Supine to sit independent Sit to supine independent Sit to stand independent Stand to sit SBA Bed to chair SBA Chair to bed SBA Gait: 150 feet x 2 on level surfaces using front wheeled walker with PT on the right LE using swing through heel toe gait pattern with minimal decrease in step height on the right due to beginning discomfort and muscle fatigue in the R hip. Balance: Static Sitting: Normal Dynamic Sitting: Normal Static Standing: Fair Dynamic Standing: Fair Special Tests: Mobility Limitations Standardized Measure [facility]-PAC 6 clicks Basic Mobility Inpatient Short Form: Raw Score: 23 CMS Score: 11% deficit Informed Consent/Education: Patient was instructed in purpose of PT consult and plan of care. Assessment:: Demonstrates functional mobility decline requiring the use of a front wheeled walker for all mobility ADL performance, decreased activity tolerance, and difficulty with walking due to postoperative statusAlexandro Mims is a 49-year-old male with primary unilateral osteoarthritis of the right hip and is status post right total hip arthroplasty on postoperative day 0. Patient presents with clinical signs and symptoms consistent with current/admitting diagnoses that have resulted to mobility limitations, gait instability, generalized weakness, and impairment of motor control as demonstrated by the following impairment level findings: 1. Decreased strength to right hip major muscle groups 2. Impaired standing balance 3. Impaired activity tolerance Impairments are contributing to the following functional limitations: 1. Inability to safely ambulate without assistive device and physical assistance 2. Increase completion time for mobility ADL performance Patient is assessed as a [id number] moderate 49 male complexity based on the following: History: 49-year-old male with impairment level findings, functional limitations, and past medical history as indicated above Examination: Demonstrable impairment in strength, balance, and mobility level with underlying impairments and functional limitations as documented above Presentation: Stable Decision Makin moderate complexity Goals: N/A. PT consult and 1 treatment session only. Plan of Care/Treatment Plan: N/A. PT consult and 1 treatment session only. PT intervention: Session today consisted of initial physical therapy evaluation as well as education and training on mobility ADL performance using the front wheeled walker. DISCHARGE RECOMMENDATIONS: Home when medically cleared by orthopedic surgeon. Outpatient PT services to regain premorbid independent level and facilitate return to vocational activities. TREATMENT CODE/TIME: 9716 2 x 25 minutes, 21426 x 26 minutes beginning at 4:24 PM. Thank you for the opportunity to participate in the care of this patient. Albania Elkins PT, DPT, CLT [facility] [place], [place]
--- NOTE | 2020-06-15 19:45 | NUR.NOTE ---
Nursing Note: pt arrived to med surg floor at 1603 by OR staff from PACU. pt transferred by ortho bed and VSS.
== END 2020-06-15 18:20 | disposition home or self-care (01) ==
LOC: PDS 13:02 → MS 13:03
PROVIDERS: Admitting Provider Student in an Organized Health Care Education/Training Program; PCP Emergency Medicine; Visit Provider Student in an Organized Health Care Education/Training Program
PROC: 0SR904A Replacement of Right Hip Joint with Ceramic on Polyethylene Synthetic Substitute, Uncemented, Open Approach (ICD-10-PCS; CPT 27130; principal; 2020-06-15 10:15)
DX: M16.11 Unilateral primary osteoarthritis, right hip (principal); M25.551 Pain in right hip; Z96.641 Presence of right artificial hip joint; S73.191A Other sprain of right hip, initial encounter; X58.XXXA Exposure to other specified factors, initial encounter
CPT/HCPCS: 27130; 20985; C1776; 97162; 97530; NC; 73501; G0378; J0690; J1100; J1885; J2405; J3010

== ENCOUNTER 2020-06-28 09:39 | Outpatient (CLI) | payer MEDICAID, SELFPAY ==
--- NOTE | 2020-06-28 09:00 | DI.RAD_ITS ---
EXAM: XR HIP RT COMPLETE AP PELVIS CLINICAL HISTORY: 1ST POST OP TECHNIQUE: COMPARISON: CR XR PELVIS AP from 05/31/2020 FINDINGS: Two views were obtained. There is a total hip joint replacement in position on the right. The compo nents appear well seated. There are mild degenerative changes of the left hip noted. IMPRESSION: RADIATION DOSE DELIVERED: Total DLP
== END 2020-06-28 09:59 ==
PROVIDERS: PCP Emergency Medicine; Referring Provider Emergency Medicine; Visit Provider Physician Assistant Surgical
DX: Z96.641 Presence of right artificial hip joint (principal); M16.12 Unilateral primary osteoarthritis, left hip
CPT/HCPCS: 73502

== ENCOUNTER 2020-09-06 09:18 | Outpatient (CLI) | payer MEDICAID, SELFPAY ==
--- NOTE | 2020-09-06 08:00 | DI.RAD_ITS ---
EXAM: XR HIP RT AP LAT ONLY CLINICAL HISTORY: Continued pain R SHOAIB. TECHNIQUE: 2D digital imaging was performed. COMPARISON: CR XR HIP RT COMPLETE AP PELVIS from 06/28/2020 FINDINGS: BONES: There are stable post operative changes present. No fracture or dislocation. JOINTS: The joint spaces are well maintained. SOFT TISSUE: Dystrophic calcification is seen in the soft tissues lateral to the hip. IMPRESSION: Stable postoperative changes. DATA REPOSITORY: RADIATION DOSE DELIVERED:
== END 2020-09-06 09:38 ==
PROVIDERS: PCP Emergency Medicine; Referring Provider Emergency Medicine; Visit Provider Physician Assistant
DX: M25.551 Pain in right hip (principal); Z96.641 Presence of right artificial hip joint
CPT/HCPCS: 73502

== ENCOUNTER 2020-09-10 03:14 | Outpatient (CLI) | payer MEDICAID, SELFPAY ==
[2020-09-10 15:13] LABS: C-Reactive Protein 0.07 mg/dL (0.0-0.3)
[2020-09-10 15:51] LABS: ESR 6 mm/hr (0-15)
== END 2020-09-10 03:34 ==
PROVIDERS: PCP Emergency Medicine; Visit Provider Physician Assistant
DX: Z96.641 Presence of right artificial hip joint (principal)
CPT/HCPCS: 36415; 85652; 86140

== ENCOUNTER 2020-12-30 20:56 | Outpatient (REF) | payer MEDICAID, SELFPAY ==
[2021-01-01 14:51] LABS: COVID-19 RT-PCR UVMMC Result Positive (Negative)
== END 2020-12-30 20:57 | disposition home or self-care (01) ==
LOC: LBN 20:56
PROVIDERS: PCP Emergency Medicine; Visit Provider Nurse Practitioner
DX: Z20.822 Contact with and (suspected) exposure to COVID-19 (principal)
CPT/HCPCS: U0003

== ENCOUNTER 2021-01-03 11:15 | Outpatient (CLI) | payer MEDICAID, SELFPAY ==
[2021-01-03 14:20] VITALS: BP 118/86; PULSE 85; RESP 18; TEMP 36.2; O2SAT 98
[2021-01-03] MEDS: Normal Saline 500 ML 30 ML IV (14:26)
[2021-01-03] MEDS: Normal Saline Flush 10 ML SYR IVP (14:26)
[2021-01-03 14:38] VITALS: BP 130/86; PULSE 74; RESP 16; TEMP 36.6; O2SAT 96
[2021-01-03 14:51] VITALS: BP 135/89; PULSE 74; RESP 18; TEMP 36.6; O2SAT 96
[2021-01-03 15:23] VITALS: BP 128/79; PULSE 77; RESP 17; TEMP 36.3; O2SAT 95
[2021-01-03 15:53] VITALS: BP 131/87; PULSE 75; RESP 18; TEMP 36.7; O2SAT 94
== END 2021-01-03 11:16 | disposition home or self-care (01) ==
LOC: INF 11:17
PROVIDERS: PCP Emergency Medicine; Visit Provider Family Medicine
DX: U07.1 COVID-19 (principal)
CPT/HCPCS: 96365

== ENCOUNTER 2021-03-22 03:20 | Outpatient (CLI) | payer OTHER, SELFPAY ==
[2021-03-22 11:09] LABS: Abs Immature Grans 0.04 10^3/uL (0.0-0.06); HCT 46.9 % (40.0-50.0); HGB 16.2 g/dL (13.5-17.5); MCH 29.3 pg (27.0-33.0); MCHC 34.5 % (32.0-36.0); MCV 84.8 fL (80-95); MPV 11.4 fL (8.0-11.0); Nucleated RBC 0 %; RBC 5.53 10^6/uL (4.36-5.78); RDW 12.6 % (11.8-14.1); RDW-SD 38.5 fL; WBC 4.79 10^3/uL (4.4-10.8)
[2021-03-22 11:40] LABS: D-Dimer 226 ng/mlFEU (<500)
[2021-03-22 11:47] LABS: Absolute Lymphocyte Count 1.87 10^3/uL (1.2-3.4); Absolute Monocyte Count 0.29 10^3/uL (0.1-0.8); Absolute Neutrophil Count 2.54 10^3/uL (1.2-6.7); Atypical Lymphocytes % 10; Platelet Count 81 10^3/uL (130-400)
[2021-03-22 11:48] LABS: Diff Comment Manual Differential; RBC Morphology Normal
[2021-03-22 12:17] LABS: Anion Gap 8.4 mmol/L (3-11); BUN 19 mg/dL (7-18); C-Reactive Protein 0.61 mg/dL (0.0-0.3); CO2 29.6 mmol/L (21.0-32.0); CREATININE 1.3 mg/dL (0.70-1.30); Chloride 102 mmol/L (98-107); Estimated GFR 58.92 (mL/min/1.73m2); Glucose 103 mg/dL (74-106); Sodium 140 mmol/L (136-145)
== END 2021-03-22 03:21 | disposition home or self-care (01) ==
PROVIDERS: PCP Emergency Medicine; Visit Provider Emergency Medicine
DX: I10 Essential (primary) hypertension (principal); Z86.16 Personal history of COVID-19
CPT/HCPCS: 36415; 80048; 85025; 85379; 86140

== ENCOUNTER 2021-06-23 09:57 | Outpatient (CLI) | payer OTHER, MEDICAID, SELFPAY ==
--- NOTE | 2021-06-23 10:00 | DI.RAD_ITS ---
Exam(s) XR HIP PELVIS ADULT BL EXAM: XR HIP PELVIS ADULT BL CLINICAL HISTORY: left hip pain, s/p R SHOAIB. TECHNIQUE: 2D digital imaging was performed. COMPARISON: CR XR HIP RT AP LAT ONLY from 09/06/2020 FINDINGS: Position alignment of the components of right hip prosthesis remain stable. No fracture or loosening . Dystrophic calcification is again noted laterally at this level. The opposite-left hip appears un remarkable do of the bones of pelvis and sacroiliac joints. IMPRESSION: DATA REPOSITORY: RADIATION DOSE DELIVERED:
== END 2021-06-23 09:58 | disposition home or self-care (01) ==
PROVIDERS: PCP Emergency Medicine; Visit Provider Student in an Organized Health Care Education/Training Program
DX: M25.552 Pain in left hip; M25.852 Other specified joint disorders, left hip; Z96.641 Presence of right artificial hip joint
CPT/HCPCS: 73521

== ENCOUNTER 2021-07-21 01:35 | Outpatient (CLI) | payer OTHER, MEDICAID, SELFPAY ==
--- NOTE | 2021-07-21 14:35 | DI.RAD_ITS ---
Exam(s) RF JOINT INJECTION FLUORO GUID EXAM: RF JOINT INJECTION FLUORO GUID CLINICAL HISTORY: l hip inj under fluoro, LT HIP PAIN, M25.552 TECHNIQUE: 2D and realtime digital imaging was performed. CONTRAST MATERIAL: Water soluble contrast was administered. COMPARISON: No exams were available for comparison FINDINGS: Fluoroscopy was provided for Dr. Taylor during the performance of a left hip injection. Please re calli to the procedure report for complete details. RADIATION DOSE DELIVERED: pina Royal=5.07 mGy
[2021-07-21] MEDS: Bupivacaine 0.5% Pres-Free 10 ML VIAL 5 ML IJ (16:19)
[2021-07-21] MEDS: methylPREDNISolone ACETATE 80 MG/ML VIAL IM (16:19)
[2021-07-21] MEDS: Omnipaque 300 MG/ML 10 ML BTL IJ (16:20)
--- NOTE | 2021-07-22 22:04 | W.PROCNOTE ---
Date of service: 07/21/21 Time of Service: 14:04 Procedure Note Date of procedure: 07/21/21 Procedure: Left Hip Injection with Fluoroscopic Guidance Surgeon/Proceduralist/Physician: Remy Taylor Procedure Diagnosis: Left Hip Pain Procedure Indications: Prasanna has had persistent pain of the LEFT hip and flank. Noninvasive measures have been tried. To serve as both diagnostic and therapeutic, an injection under fluoroscopy was recommended. I had discussed the risks of the procedure and the patient elected to proceed. Procedure Description: Kwadwo was greeted in the flouroscopy room. The correct side was identified and the consent was reviewed with the patient and signed. The patient was then placed in the supine position on the fluoroscopy table. The LEFT hip was then prepped with Chloraprep. The anterolateral injection starting point was identiifed by bony landmarks and fluoroscopy. The skin and soft tissue in the tract of the injection was anesthetized with 1% Lidocaine. A spinal needle was then inserted deep into the hip joint at the level of the lateral femoral neck under fluoroscopic guidance. A small amount of Omnipaque solution was injected to confirm intraarticular placement. Once confirmed, the hip was injected with 6cc of 0.5% Bupivicaine and 80mg of Depo-Medrol. A bandaid was placed on the injection site. The patient tolerated the procedure well.
== END 2021-07-21 01:55 ==
PROVIDERS: PCP Emergency Medicine; Visit Provider Student in an Organized Health Care Education/Training Program
DX: M25.552 Pain in left hip (principal); R10.32 Left lower quadrant pain
CPT/HCPCS: 20610; 77002; J1040

== ENCOUNTER 2021-08-09 01:11 | Outpatient (CLI) | payer OTHER, MEDICAID, SELFPAY ==
--- NOTE | 2021-08-09 08:40 | DI.MRI_ITS ---
Exam(s) MR LUMBAR SPINE WO EXAM: MR LUMBAR SPINE WO CLINICAL HISTORY: continued hip pain,FEMOROACETABULAR IMPINGEMENT LT HIP, M25.852. TECHNIQUE: Multiplanar multisequence MRI of the Lumbar spine was performed. COMPARISON: MR MRI - LUMBAR SPINE W/WO CONT from 05/15/2018 FINDINGS: Bones: The last intervertebral disc space is designated the L5/S1 level for the numbering purpose of this examination. The vertebral body heights are well maintained. Alignment is satisfactory. Mild e ndplate degenerative signal changes are seen at L4-5 and L5-S1. Cord: The conus tip ends at the T12-L1 disc level. It is of normal size and signal intensity. T12-L1: No disc herniations or bulges are present. No central spinal canal or neural foraminal stenos is. L1-2: No disc herniations or bulges are present. No central spinal canal or neural foraminal stenosis . L2-3: No disc herniations or bulges are present. No central spinal canal or neural foraminal stenosis . L3-4: No disc herniations or bulges are present. No central spinal canal or neural foraminal stenosis . L4-5: Postsurgical changes are seen at this level. There is a mild diffuse disc bulge. There are de generative changes of the facets. No significant central spinal canal stenosis.There is mild right n eural foraminal narrowing. No significant left neural foraminal stenosis. L5-S1: Mild diffuse disc bulge. Mild degenerative changes of the facets. No significant central spi nal canal or neural foraminal stenosis. Soft tissues: The visualized SI joints and sacrum are well maintained. The paraspinal soft tissues ar e unremarkable. IMPRESSION: 1. Postsurgical changes in the lumbar spine. 2. Mild diffuse disc bulge at L4-L5 with facet arthropathy. Mild right neural foraminal narrowing is present. 3. Degenerative changes at L5-S1 without significant central spinal canal or neural foraminal stenosi s. DATA REPOSITORY:
== END 2021-08-09 01:31 ==
PROVIDERS: PCP Emergency Medicine; Visit Provider Student in an Organized Health Care Education/Training Program
DX: M25.852 Other specified joint disorders, left hip (principal); M47.817 Spondylosis without myelopathy or radiculopathy, lumbosacral region; M51.26 Other intervertebral disc displacement, lumbar region
CPT/HCPCS: 72148

== ENCOUNTER → 2021-08-31 18:55 | Outpatient (CLI) | payer OTHER, MEDICAID, SELFPAY ==
--- NOTE | 2021-08-31 | DI.RAD_ITS ---
Exam(s) XR LUMBAR SPINE COMPLETE EXAM: XR LUMBAR SPINE COMPLETE CLINICAL HISTORY: S/P BACK AND HIP SURGERY. TECHNIQUE: 2D digital imaging was performed. COMPARISON: No exams were available for comparison FINDINGS: No evidence of fracture or listhesis. No pars defects. All the disc spaces exhibit normal height. No osseous lesions. Flexion and extension views exhibit very minimal anterolisthesis L4 upon L5 related to some degenerat george change in the facet joints. This is minimal. Sacroiliac joints appear unremarkable. IMPRESSION: Very mild anterolisthesis L4 upon L5 with flexion extension. Related to degenerative facet joint makeda nges. There are no pars defects evident. There is no significant disc space narrowing. DATA REPOSITORY: RADIATION DOSE DELIVERED:
== END ==
PROVIDERS: PCP Emergency Medicine; Visit Provider Neurological Surgery
DX: M54.59 Other low back pain (principal); M43.16 Spondylolisthesis, lumbar region
CPT/HCPCS: 72110

== ENCOUNTER 2022-02-27 04:55 | Outpatient (CLI) | payer MEDICAID, SELFPAY ==
[2022-02-27 12:26] LABS: HCT 45.8 % (40.0-50.0); HGB 15.4 g/dL (13.5-17.5); MCH 28.8 pg (27.0-33.0); MCHC 33.6 % (32.0-36.0); MCV 85.8 fL (80-95); MPV 12.6 fL (8.0-11.0); RBC 5.34 10^6/uL (4.36-5.78); RDW-SD 40.1 fL; WBC 5.35 10^3/uL (4.4-10.8)
[2022-02-27 12:40] LABS: Platelet Count 51 10^3/uL (130-400)
[2022-02-27 12:41] LABS: ALT 65 U/L (16-63); AST 29 U/L (15-37); Albumin 4.3 g/dL (3.4-5.0); Alkaline Phosphatase 90 U/L (46-116); Anion Gap 7.2 mmol/L (3-11); BUN 19 mg/dL (7-18); Bilirubin, Total 0.5 mg/dL (0.2-1.0); CO2 28.8 mmol/L (21.0-32.0); CREATININE 1.1 mg/dL (0.70-1.30); Calcium 8.8 mg/dL (8.5-10.1); Chloride 102 mmol/L (98-107); Glucose 91 mg/dL (74-106); Potassium 3.7 mmol/L (3.5-5.1); Sodium 138 mmol/L (136-145); TSH 2.05 uIU/mL (0.36-3.74); Total Protein 7.4 g/dL (6.4-8.2)
[2022-02-27 21:56] LABS: PSA, Diagnostic 0.6 ng/mL (<=2.5)
== END 2022-02-27 04:56 | disposition home or self-care (01) ==
PROVIDERS: PCP Nurse Practitioner Family; Visit Provider Emergency Medicine
DX: E03.9 Hypothyroidism, unspecified (principal); D69.6 Thrombocytopenia, unspecified; N40.0 Benign prostatic hyperplasia without lower urinary tract symptoms; U07.1 COVID-19
CPT/HCPCS: 36415; 80053; 85027; 84153; 84443

== ENCOUNTER → 2022-04-13 01:36 | Outpatient (CLI) | payer MEDICAID, SELFPAY ==
--- NOTE | 2022-04-13 07:15 | DI.US_ITS ---
Exam(s) US HERNIA EXAM: US HERNIA CLINICAL HISTORY: rt inguinal pain, r10.31, ? inguinal hernia. TECHNIQUE: Ultrasound was performed using standard protocol. COMPARISON: US US ECHOCARDIOGRAM from 11/04/2019 FINDINGS: Sonographic assessment utilizing grayscale and color Doppler imaging was performed and targeted to th e area of clinical concern. Ultrasound probe used was for abdominal wall imaging. Area of concern is right lower quadrant this was examined both without and with Valsalva maneuver. This study does not reveal evidence obvious anterior abdominal hernia at this level. Also no abnorma l fluid collection in the abdominal wall. IMPRESSION: No ultrasound evidence right lower quadrant anterior abdominal hernia. If clinically indicated furth er study with CT scan can be performed. DATA REPOSITORY:
== END ==
PROVIDERS: PCP Nurse Practitioner Family; Visit Provider Nurse Practitioner Family
DX: R10.31 Right lower quadrant pain (principal)
CPT/HCPCS: 76857

== ENCOUNTER → 2022-06-06 02:05 | Outpatient (CLI) | payer MEDICAID, SELFPAY ==
--- NOTE | 2022-06-06 07:45 | DI.CT_ITS ---
Exam(s) CT ABDOMEN PELVIS W EXAM: CT ABDOMEN PELVIS W CLINICAL HISTORY: ? spigelian hernia,PERIUMBILICAL ABD TENDERNESS,R10.815 TECHNIQUE: Imaging Protocol: Axial computed tomography images with coronal and sagittal reformatted images were created and reviewed CONTRAST MATERIAL: Intravenous: Omnipaque 350 Contrast volume:100 mL Oral: Yes COMPARISON: CT ABD PELVIS WITH CONTRAST from 01/01/2018 FINDINGS: ABDOMEN: Lung Bases: Normal where visualized. Liver: Normal density. There is a stable 2.1 x 2.8 cm hypodense mass in the left lobe of the liver (s eries 5, image 62) it does show a nodular enhancement pattern suggestive of a hepatic hemangioma. Th ere are stable simple cysts. No follow-up is recommended. Portal, Superior Mesenteric, and Splenic Veins: Unremarkable. Gallbladder and Biliary Tract: No radiodense calculus or dilation. Pancreas: Normal density, no abnormal calcifications or inflammatory process. Spleen: Normal. Adrenals: No masses seen. Kidneys: Normal size, contour and axis. No radiodense stones or obstructive uropathy. No masses seen. Abdominal Aorta: Abdominal portion non-dilated. Bowel: No obstruction or bowel wall thickening. Appendix is unremarkable. Peritoneal Cavity: No ascites, collection or mesenteric inflammatory response. No free air. Lymph Nodes: Within normal limits. Bones: Within normal limits for the patient's age. The patient has a right total hip replacement. Soft Tissues: There is a small fat containing umbilical hernia. There is a small 1 cm defect in the right external oblique musculature (series 5, image 301). But no significant herniation is seen. No other anterior abdominal wall herniation is present. There are bilateral fat containing inguinal he rnias. PELVIS: Bladder: Symmetric distention, no gross wall thickening. Reproductive Organs: Unremarkable as visualized. Lymph Nodes: Within normal limits. Bones: Within normal limits for the patient's age. IMPRESSION: 1. Small fat containing umbilical hernia. 2. No other significant abdominal wall hernia is seen. 3. 2.1 x 2.8 cm hypodense mass in the left lobe of the liver. There is mild nodular enhancement pres ent suggestive of a hepatic hemangioma. A CT or MRI examination of the liver using the hepatic heman gioma more protocol is recommended. RADIATION DOSE DELIVERED: 1,077.97mGy.cm Total DLP DATA REPOSITORY: All CT scans at this facility are submitted to the National Radiology Data Registry (NRDR) Dose Index Registry (DIR) with the [employer] (ACR). RADIATION OPTIMIZATION: All CT scans at this facility use at least one of these dose optimization te chniques: automated exposure control; mA and/or kV adjustment per patient size (includes targeted exa ms where dose is matched to clinical indication); or iterative reconstruction.
[2022-06-06] MEDS: Barium Sulfate 2% W/V-Berry Smoothie 450 ML BTL PO ×2 (12:46→12:47)
[2022-06-06] MEDS: Omnipaque 350 MG/ML 100 ML BTL IJ (13:54)
== END ==
PROVIDERS: PCP Nurse Practitioner Family; Visit Provider Surgery
DX: R10.815 Periumbilic abdominal tenderness (principal); R16.0 Hepatomegaly, not elsewhere classified
CPT/HCPCS: 74177; J3490

== ENCOUNTER → 2022-07-06 03:13 | Outpatient (CLI) | payer MEDICAID, SELFPAY ==
--- NOTE | 2022-07-06 08:00 | DI.MRI_ITS ---
Exam(s) MR ABDOMEN WO/W EXAM: MR ABDOMEN WO/W CLINICAL HISTORY: Liver mass CT, R16.0 TECHNIQUE: Multiplanar multisequence MRI was performed with both pre and post contrast infused seque nces. Contrast injected sequences were performed following IV injection of 14 cc of Dotarem. COMPARISON: CT CT ABDOMEN PELVIS W from 06/06/2022 FINDINGS: VISUALIZED LUNG BASES: No pleural effusions evident. There is no ascites evident. LIVER: In addition to a few small cysts in the right hepatic lobe there is also previously described well-defined slightly lobulated T2 bright lesion in the far left hepatic lobe across the midline, cor respond to what is seen recent CT scan. This measures 2.5 cm wide by 2 cm AP by 1.9 cm craniocaudal. Following IV contrast injection this exhibits centripetal enhancement and by 15 minutes exhibits al most complete enhancement with the exception of central scar. Consistent with hemangioma. BILIARY: There is no obvious gallbladder pathology. The CBD is not dilated. PANCREAS: There is no evidence of pancreatic mass nor dilatation of the pancreatic duct. SPLEEN: Upper normal size. No splenic lesions.Splenic and portal veins are patent ADRENALS: There are no significant adrenal masses. KIDNEYS: No solid renal masses. No hydronephrosis.No cysts evident. ABDOMINAL AORTA: Not enlarged and there is no significant para-aortic adenopathy. ANTERIOR ABDOMINAL WALL/GI: There is no evidence of significant anterior abdominal wall hernia in the field of view of this study.Is no evidence of obvious bowel obstruction. OSSEOUS: There are no lytic osseous lesions in the field of view of this study. IMPRESSION: 1. In the far lateral aspect of the left hepatic lobe there is a slightly lobulated 25 x 20 x 19 mill imeter lesion which exhibits signal characteristics and enhancement pattern of a benign cavernous hem angioma. 2. There are few other smaller lesions in the right hepatic lobe which do not exhibit internal enhanc ement and are consistent with small benign appendix cysts. 3. No other significant focal findings. DATA REPOSITORY:
== END ==
PROVIDERS: PCP Nurse Practitioner Family; Visit Provider Surgery
DX: R16.0 Hepatomegaly, not elsewhere classified (principal)
CPT/HCPCS: 74183

== ENCOUNTER 2022-07-06 05:15 | Outpatient (CLI) | payer MEDICAID, SELFPAY ==
[2022-07-06 12:35] LABS: HCT 45.9 % (40.0-50.0); MCH 29.4 pg (27.0-33.0); MCHC 34.9 % (32.0-36.0); MCV 84 fL (80-95); RBC 5.44 10^6/uL (4.36-5.78); RDW 12.9 % (11.8-14.1); RDW-SD 39.1 fL; WBC 5.19 10^3/uL (4.4-10.8)
[2022-07-06 12:52] LABS: Platelet Count 43 10^3/uL (130-400)
[2022-07-11 15:30] LABS: Baker's Yeast, IgE <0.35 kU/L; Banana, IgE <0.35 kU/L; Barley, IgE <0.35 kU/L; Beef IgE <0.35 kU/L; Black/White Pepper IgE <0.35 kU/L; Broccoli IgE <0.35 kU/L; Cacao/Cocoa, IgE <0.35 kU/L; Cinnamon, IgE <0.35 kU/L; Corn-Food IgE <0.35 kU/L; Egg Whole IgE <0.10 kU/L; Milk, IgE <0.35 kU/L; Onion, IgE <0.35 kU/L; Soybean IgE <0.35 kU/L; Strawberry, IgE <0.35 kU/L; White Potato, IgE <0.35 kU/L
== END 2022-07-06 05:16 | disposition home or self-care (01) ==
LOC: LBO 05:15
PROVIDERS: PCP Nurse Practitioner Family; Visit Provider Surgery
DX: K58.9 Irritable bowel syndrome, unspecified (principal); D69.6 Thrombocytopenia, unspecified
CPT/HCPCS: 36415; 85027; 86003

== ENCOUNTER 2022-07-27 09:17 | Emergency (ER) | payer MEDICAID, SELFPAY ==
--- NOTE | 2022-07-27 09:15 | RT.EKG_ITS ---
APPROVED REPORT Exam: Resting ECG Reason for Exam: chest pain Patient Location: E HR:89 bpm ECG Measurements Heart Rate 89 AXIS NM 150 P -10 QRSd 86 QRS -16 QT 338 T 22 QTc 412 Conclusion Sinus rhythm...normal P axis, V-rate 60- 99 Inferior infarct, old...Q >35mS, II III aVF
--- NOTE | 2022-07-27 09:15 | DI.CT_ITS ---
Exam(s) CT CHEST PE CTA EXAM: CT CHEST PE CTA CLINICAL HISTORY: Dyspena, sob, chest trauma. TECHNIQUE: Imaging Protocol: Axial CT angiography was performed with multi-slice acquisition and mu lti-planar reconstructions as well as axial, coronal and sagittal MIP reconstructions. CONTRAST MATERIAL: Intravenous: Omnipaque 350 Contrast volume:100 ml COMPARISON: CT CT ABDOMEN PELVIS W from 06/06/2022 FINDINGS: Pulmonary Arteries: No evidence of filling defect to suggest pulmonary emboli. Tracheobronchial tree: Patent where visualized. Mediastinum and Faina: No dominant adenopathy or fluid collection. Pulmonary parenchyma: No consolidation or dominant measurable mass. Pleura: No effusion or pneumothorax. Heart: The heart is not dilated. No coronary artery calcifications are seen. Aorta: Thoracic aorta non-dilated. No aneurysm. No dissection. Upper abdomen: Enlarged liver with fatty infiltration unremarkable. Bones: Unremarkable for age. IMPRESSION: No evidence of pulmonary embolism or other acute abnormality.. RADIATION DOSE DELIVERED: 594.09mGy.cm Total DLP DATA REPOSITORY: All CT scans at this facility are submitted to the National Radiology Data Registry (NRDR) Dose Index Registry (DIR) with the [employer] (ACR). RADIATION OPTIMIZATION: All CT scans at this facility use at least one of these dose optimization te chniques: automated exposure control; mA and/or kV adjustment per patient size (includes targeted exa ms where dose is matched to clinical indication); or iterative reconstruction.
[2022-07-27 09:23] VITALS: BP 144/96; RESP 20; TEMP 36.9; O2SAT 97
[2022-07-27 09:30] VITALS: RESP 20
--- NOTE | 2022-07-27 09:37 | ED.GENADUL_ITS ---
Discharge Plan Disposition Patient Disposition: HOME Condition: Stable Discharge Details Clinical Impression: Bronchitis Primary Care Provider: Marian Pierre ED Provider: Guerrero Okeefe Home Meds and New Rx's Prescriptions: New promethazine-codeine 6.25-10 mg/5 mL syrup 5 ml PO Q6H PRN (Reason: cough) Qty: 118 0RF Continued benzonatate 100 mg capsule 100 - 200 mg PO TID PRN (Reason: cough) Qty: 60 0RF Rx Instructions: Take 1-2 capsules by mouth three times a day as needed for cough albuterol sulfate 90 mcg/actuation HFA aerosol inhaler 2 inh inhalation Q6H PRN (Reason: shortness of breath or wheezing) Qty: 18 4RF (DME) Aerochamber MV Spacer See Rx Instructions .Route Qty: 1 0RF Rx Instructions: Use with albuterol inhaler pramipexole [Mirapex] 0.5 mg tablet 0.5 mg PO HS Qty: 90 3RF cetirizine 10 mg tablet 10 mg PO DAILY Qty: 90 3RF omeprazole 40 mg capsule,delayed release(DR/EC) 40 mg PO DAILY Qty: 90 3RF acetaminophen 500 mg tablet 1,000 mg PO Q8H PRN (Reason: pain) Qty: 90 3RF ibuprofen 600 mg tablet 600 mg PO TID PRNQty: 90 3RF Discontinued diazepam [Valium] 2 mg tablet 2 mg PO ONCE PRN (Reason: CT scan) Qty: 1 0RF Rx Instructions: Take 30 mins [address] to your CT scan. You will require a residential recycle driver to and from your scan. Discharge Instructions Instructions: Acute Bronchitis (ED) Additional Instructions: Continue to stay well-hydrated and get plenty of rest. At this time there is no bacterial source and no emergent findings to your CT imaging or your labs. If you develop any new or worsening symptoms feel free to return to the emergency department for reassessment otherwise follow-up with your primary care provider if not improving in the next week. Please Please take [id number]-ccc-[id number] Mucinex DM during the day for cough and be mindful that the prescribed cough medication is a narcotic and use as discussed. Referrals: Marian Pierre MD [Primary Care Provider] - 1 week (if not improving) Discharge Data Discharge Date/Time-TO BE ENTERED AT DEPARTURE: 07/27/22 11:51 Medical Decision Making Patient presenting to the emergency department for 3 weeks of cough with shortness of breath during coughing episodes and coughing fits during activity. Patient has been treated with multiple antibiotics, albuterol inhaler, and Tessalon Perles and not showing signs of improvement. 2 days ago he was at work and was struck in the chest with the jaws of life. Patient does state some sternal chest pain and discomfort due to the injury. Patient does have significant history of thrombocytopenia/ ITP, and umbilical hernias that he is scheduled to have repaired. Physical exam shows well-appearing patient with persistent cough during talking. Lungs are clear, patient does have sternal chest discomfort that is reproducible to palpation otherwise exam is unremarkable. We will plan on performing labs and CT imaging of the chest due to persistent cough along with trauma. Please see physician interpretation for full interpretation of EKG but patient appears to be in sinus rhythm with no acute findings to suggest STEMI. Labs are reviewed and CBC is unremarkable with no white count and platelets at 65 which is normal for patient's history. CMP shows slightly low potassium of 3.4, BUN of 25 with creatinine 1.6 otherwise unremarkable CMP. Troponin is negative. Reviewed CT imaging and radiologist interpretation that shows no acute findings noted and no evidence of PE. Imaging Data Radiologic Study: Attestation: I personally reviewed and interpreted this imaging study as follows: Imaging: CT Scan Radiologist's impression: FINDINGS: Pulmonary Arteries: No evidence of filling defect to suggest pulmonary emboli. Tracheobronchial tree: Patent where visualized. Mediastinum and Faina: No dominant adenopathy or fluid collection. Pulmonary parenchyma: No consolidation or dominant measurable mass. Pleura: No effusion or pneumothorax. Heart: The heart is not dilated. No coronary artery calcifications are seen. Aorta: Thoracic aorta non-dilated. No aneurysm. No dissection. Upper abdomen: Enlarged liver with fatty infiltration unremarkable. Bones: Unremarkable for age. IMPRESSION: No evidence of pulmonary embolism or other acute abnormality.. Lab Data Lab results reviewed: Yes I reviewed the patient's lab results. HPI General Mode of arrival: ambulatory . Date/Time Provider Initiated Documentation: 07/27/22 09:17 . Limitations to Documentation: no limitations . Information obtained by: patient . History of Present Illness 51 year old M presents to the emergency department with the chief complaint of Cough with shortness of breath and chest trauma, described as moderate, with intensity rated at 7. Quality is described as aching, and is localized to the chest. Patient reports no radiation. Patient started experiencing this week(s) (3) and it has been constant. No relieving factors improve symptom(s), Other factors that worsen symptoms (Activity) . Patient notes cough; denies fever/chills. Patient did receive the following treatments prior to arrival, other (Tessalon Perles albuterol and antibiotics) Related Data Home Medications Medication Instructions Recorded Confirmed acetaminophen 500 mg tablet 1,000 mg PO Q8H PRN pain #90 tabs 06/15/20 07/27/22 ibuprofen 600 mg tablet 600 mg PO TID PRN #90 tabs 06/15/20 07/27/22 pramipexole 0.5 mg tablet (Mirapex) 0.5 mg PO HS #90 tabs 10/13/21 07/27/22 cetirizine 10 mg tablet 10 mg PO DAILY #90 tabs 02/24/22 07/27/22 omeprazole 40 mg capsule,delayed 40 mg PO DAILY #90 caps 06/16/22 07/27/22 release benzonatate 100 mg capsule 100 - 200 mg PO TID PRN cough #60 07/12/22 07/27/22 caps albuterol sulfate 90 mcg/actuation 2 inh inhalation Q6H PRN shortness 07/20/22 07/27/22 aerosol inhaler of breath or wheezing #18 grams inhalational spacing device #1 ea 07/20/22 07/27/22 (Aerochamber MV spacer) promethazine 6.25 mg-codeine 10 5 ml PO Q6H PRN cough #118 mL 07/27/22 mg/5 mL syrup Previous Rx's Medication Instructions Recorded acetaminophen 500 mg tablet 1,000 mg PO Q8H PRN pain #90 tabs 06/15/20 ibuprofen 600 mg tablet 600 mg PO TID PRN #90 tabs 06/15/20 pramipexole 0.5 mg tablet (Mirapex) 0.5 mg PO HS #90 tabs 10/13/21 cetirizine 10 mg tablet 10 mg PO DAILY #90 tabs 02/24/22 omeprazole 40 mg capsule,delayed 40 mg PO DAILY #90 caps 06/16/22 release benzonatate 100 mg capsule 100 - 200 mg PO TID PRN cough #60 07/12/22 caps albuterol sulfate 90 mcg/actuation 2 inh inhalation Q6H PRN shortness 07/20/22 aerosol inhaler of breath or wheezing #18 grams inhalational spacing device #1 ea 07/20/22 (Aerochamber MV spacer) promethazine 6.25 mg-codeine 10 5 ml PO Q6H PRN cough #118 mL 07/27/22 mg/5 mL syrup Allergies Allergy/AdvReac Type Severity Reaction Status Date / Time SEASONAL ALLERGIES Allergy Unknown Uncoded 07/27/22 08:40 General Stated Complaint: GenMedical ISREAL: 2 Review of Systems Constitutional Constitutional: Denies chills and Denies fever(s) ENT Ears, Nose, Mouth, and Throat: Denies nasal congestion and Denies sore throat Cardiovascular Cardiovascular: Reports chest pain, Denies syncope and Reports dyspnea (With coughing episodes) Respiratory Respiratory: Reports as per HPI, Reports cough, Denies hemoptysis, Reports pain with cough and Reports dyspnea (With coughing episodes) Gastrointestinal Gastrointestinal: Denies hematochezia, Denies diarrhea and Denies vomiting Musculoskeletal Musculoskeletal: Denies back pain Integumentary/Breasts Skin/Breast: Denies unusual bruising Neurologic Neurologic: Denies syncope Psychiatric Psychiatric: Denies anxiety Hematologic/Lymphatic Hematologic/Lymphatic: Denies easy bruising PFSH All Active Problems (Updated 07/27/22 @ 11:25 by Guerrero Okeefe NP) Bronchitis (Acute) IBS (irritable bowel syndrome) (Chronic) Liver mass (Acute) Periumbilic abdominal tenderness (Acute) BPH (benign prostatic hyperplasia) (Chronic) Femoroacetabular impingement of left hip (Acute) Situational depression (Acute) Runny nose (Acute) Ear pain (Acute) Body aches (Acute) Sinus pain (Acute) Status post total hip replacement, right (Acute 06/15/20) Labral tear of right hip joint (Acute) Achilles tendinitis of right lower extremity (Acute 09/06/17) Costochondritis (Acute 10/15/15) Depressive disorder (Acute) Hyperlipidemia (Acute 10/11/12) Multiple lipomas (Acute 10/15/15) Organic sleep apnea, unspecified (Acute) V-IIS-[id number] Restless legs syndrome (Acute) Retrocalcaneal bursitis (back of heel) (Acute 09/06/17) LEFT Tendinitis of right foot (Acute 09/06/17) Thrombocytopenia (Acute 10/15/15) [place]. [place] [facility] [place] Unspecified asthma (Acute) Chronic right hip pain (Chronic) Right low back pain (Chronic) Status post vasectomy (Acute) History of lumbar discectomy (Acute 11/10/14) Depressive disorder (Acute) Fatigue (Acute) Tachycardia (Acute) Chronic hip pain (Acute) Medical History Achilles tendinitis of right lower extremity Asthma Chronic ITP (idiopathic thrombocytopenia) Costochondritis COVID-19 Depressive disorder Hyperlipidemia Multiple lipomas Osteoarthritis (arthritis due to wear and tear of joints) Restless legs Retrocalcaneal bursitis (back of heel) Thrombocytopenia Umbilical hernia Surgical History Colonoscopy - MAC (01/04/18) Hx of knee surgery with Dr. Chaparro Spinal Surgery Discectomy x 2 Dr. Villalba x2 Vasectomy (~2004) Family History Mother Depression Father Essential hypertension Hyperlipidemia Sister No problems noted. Brother No problems noted. Grandfather Essential hypertension Hyperlipidemia Grandfather No problems noted. Grandmother Alzheimer disease Grandmother Neoplasm Son ADHD Son No problems noted. Son No problems noted. 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 Pets and animals: Yes Pets and animals: cat(s) and dog(s) Current gender identity: male Duration: 15-30 minutes/day Frequency: 1-2 times per week Tasha/Christianity: [employer] Orthodox Special tasha needs: No Do you feel safe at home: Yes Do you feel safe in your relationship?: Yes Exam Const General: cooperative, comfortable and no acute distress Orientation: alert and awake [facility] Head: normal to inspection, normocephalic and atraumatic Ears: hearing grossly normal bilaterally Mouth: no muffled voice Neck Neck: normal visual inspection, full ROM, no meningeal signs, trachea midline and supple Chest Chest: normal inspection of the chest and tenderness (Around sternum and ribs 7,8,9) sternum Resp Effort & Inspection: normal respiratory effort, able to speak in complete sentences and cough Quality of cough: dry Auscultation: clear to auscultation bilaterally Cardio Rate: regular rate Rhythm: regular rhythm Heart Sounds: S1 normal, S2 normal, normal S1 and S2, no click, no gallops, no murmurs and no rubs GI Palpation: soft, not firm, no guarding, not rigid and nontender Skin General skin exam: no rashes or lesions noted and dry skin (warm) Neuro General: patient alert, patient awake, patient oriented x3, gait normal and moves all extremities Cognition: normal cognition Speech: speech normal Course Vital Signs Vital signs: Vital Signs Temperature 36.9 C 07/27/22 09:23 Respiratory Rate 20 07/27/22 09:23 Blood Pressure 144/96 H 07/27/22 09:23 Pulse Oximetry 97 07/27/22 09:23 Temperature 36.9 C 07/27/22 09:23 Temperature Source Tympanic 07/27/22 09:23 Respiratory Rate 20 07/27/22 09:23 Blood Pressure 144/96 H 07/27/22 09:23 Pulse Oximetry 97 07/27/22 09:23 Oxygen Delivery Method Room Air 07/27/22 09:23 Oxygen Flow Rate 0 07/27/22 09:23
[2022-07-27 09:48] LABS: Abs Immature Grans 0.12 10^3/uL (0.0-0.06); Absolute Basophil Count 0.04 10^3/uL (0.0-0.2); Absolute Eosinophil Count 0.13 10^3/uL (0.0-0.7); Absolute Lymphocyte Count 2.67 10^3/uL (1.2-3.4); Absolute Monocyte Count 0.61 10^3/uL (0.1-0.8); Basophils % 0.5; Eosinophils % 1.6; HCT 44.8 % (40.0-50.0); HGB 15.6 g/dL (13.5-17.5); Immature Grans % 1.5; Lymphocytes % 33.1; MCH 29.7 pg (27.0-33.0); MCHC 34.8 % (32.0-36.0); MCV 85 fL (80-95); Monocytes % 7.6; Neutrophils % 55.7; RBC 5.26 10^6/uL (4.36-5.78); RDW 13.2 % (11.8-14.1); RDW-SD 40.5 fL; WBC 8.07 10^3/uL (4.4-10.8)
[2022-07-27 10:04] LABS: ALT 49 U/L (16-63); AST 13 U/L (15-37); Albumin 3.8 g/dL (3.4-5.0); Alkaline Phosphatase 79 U/L (46-116); Anion Gap 8.5 mmol/L (3-11); BUN 25 mg/dL (7-18); Bilirubin, Total 0.4 mg/dL (0.2-1.0); CO2 27.5 mmol/L (21.0-32.0); CREATININE 1.6 mg/dL (0.70-1.30); Calcium 8.9 mg/dL (8.5-10.1); Chloride 104 mmol/L (98-107); Estimated GFR 52.49 (mL/min/1.73m2); Glucose 99 mg/dL (74-106); Magnesium 2.2 mg/dL (1.8-2.4); Potassium 3.4 mmol/L (3.5-5.1); Sodium 140 mmol/L (136-145); Total Protein 7.3 g/dL (6.4-8.2); Troponin I < 50 ng/L (<or=60)
[2022-07-27] MEDS: Omnipaque 350 MG/ML 500 ML BTL-Imaging package IJ (10:13)
[2022-07-27 10:14] LABS: Prothrombin Time 10.5 sec (9.3-11.0)
[2022-07-27 10:19] LABS: Diff Comment Diff Reviewed; Platelet Count 65 10^3/uL (130-400); RBC Morphology Normal
[2022-07-27] MEDS: Normal Saline 1,000 ML 1000 ML IV (10:55)
[2022-07-27 11:48] VITALS: BP 143/87; PULSE 79; TEMP 36.8; O2SAT 96
== END 2022-07-27 11:51 | disposition home or self-care (01) ==
PROVIDERS: Emergency Provider Nurse Practitioner Family; PCP Family Medicine
DX: J40 Bronchitis, not specified as acute or chronic (principal); R07.89 Other chest pain; K42.9 Umbilical hernia without obstruction or gangrene; E87.6 Hypokalemia; Z86.16 Personal history of COVID-19
CPT/HCPCS: 36415; 71275; 80053; 93005; 96360; 99285; 83735; 84484; 85025; 85610; 85730; 93010

== ENCOUNTER 2022-08-02 12:56 | Outpatient (REF) | payer MEDICAID, SELFPAY ==
--- OUTSIDE RECORDS SUMMARY | 2022-08-02 12:58 | XMS_ITS | Encounter Summary ---
:1970 Author Organization [facility] Address [address] [place] [address] Care Team Providers Name Role Phone Unknown, Provider Primary Care Provider Encounter Details Date Type Department Care Team Description 05/14/2015 Results Only [facility]- Jose Cross, [address] [place], [place] [id number] (Wo rk) Social History Tobacco Use Types Packs/Day Years Used Date Never Assessed Sex Assigned at Date Recorded Not on file documented as of this encounter Plan of Treatment Not on filedocumented as of this encounter Procedures Procedure Name Priority Date/Time Associated Diagnosis Comme nts SURGICAL PATHOLOGY Routine 05/14/2015 18:36 Resul ts for this EDT procedure are i n the results section. documented in this encounter Results SURGICAL PATHOLOGY (05/14/2015 18:36 EDT) Pathology Report: SURGICAL PATHOLOGY REPORT [facility] Reports generated via electronic interface contain fay ginal data; LABORATORY however they are lacking the format of the original re port. SERVICES Caution should be taken when reading/interpreting unfo rmatted reports. Name: ? PRASANNA SHIPMAN ? Accession #: ? [id number] ? : ? 1970 (Age: 6 2) ??M ? Collect Date: ? 05/14/2015 ? Location: ? [facility] ? Receive Date: ? 5 ? Provider: JOSE ABBOTT DO Copy to: DAVID OSEGUERA DO ? Final Pathologic Diagnosis: SKIN OF LOBULE, LEFT POSTERIOR, SHAVE BIOPSY: - Melanocytic nevus, intradermal type. ?? Microscopic Description: Sections are of a papule with mild epidermal hyperplas ia and hyperkeratosis. There is a proliferation of melanocytes within the dermis. ??The proliferation consists of nests, cords, and strands that dimin suzanne in size with descent into the dermis. ??The melanocyte s are slightly enlarged but generally have round-oval nuclei and a moderate amount of cytoplasm. ??The melan ocytes show fountain clerk maturation. ??(Dr. Black)/n Document reviewed and electronically signed by: RUFINA BLACK MD Report ??Date: 05/20/2015 15:14 By the signature above, the attending physician certif ies that he/she has personally conducted a gross and/or microscopic examin ation of the described specimens and rendered or confirmed the above diagnosi s. Specimen(s) Received: L posterior lobule Clinical History: Changing color skin lesion; clinical diagnosis code: ? ?239.2 Gross Description: ? Received in formalin labelled with proper patient identification (initials F, C) and left posterior lo bule is a shave biopsy of pink-mar skin (1.0 x 0.5 x 0.1 cm). There is an eccen tric mar-brown scaly papule that measures 0.6 x 0.5 x 0.2 cm. ??The specimen is bisected and entirely subm itted in 1. Cam [place] 05/19/2015 10:25 AM End of Report Specimen Performing Organization Address City/State/ZIP Code Phon e Number [facility] [address] [place] [address] SERVICES documented in this encounter Visit Diagnoses Not on filedocumented in this encounter Care Teams Hand Alterations Seamstress Relationship Specialty Start Date End Date Unknown, Provider, PCP - General 02/29/12 05/20/15 documented as of this encounter
--- OUTSIDE RECORDS SUMMARY | 2022-08-02 12:58 | XMS_ITS | Encounter Summary ---
:1970 Author Organization [facility] [place] [address] Care Team Providers Name Role Phone Ruperto Shultz APRN Primary Care Provider Encounter Details Date Type Department Care Team Description 05/03/2022 Hospital Encounter Hematology and Idiopat hic thrombocytopenic purpura; Oncology at [facility] Stage 1 [place] [id number] Social History Tobacco Use Types Packs/Day Years Used Date Never Smoker Smokeless Tobacco: Never Used Alcohol Use Standard Drinks/Week Comments Yes 0 (1 standard drink = 0.6 oz pure alcoho l) once a month Alcohol Habits Answer Date Recorded How often do you have a drink containing alcohol? Not asked How many drinks containing alcohol do you have on a Not aske d typical day when you are drinking? How often do you have six or more drinks on one occasion? No t asked Comment: once a month 05/25/2020 Sex Assigned at Date Recorded Not on file documented as of this encounter Medications at Time of Discharge Medication Sig Dispensed Refills Start Date End Date acetaminophen (Tylenol) 500 Take 1,000 mg by 0 mg Tablet mouth every 6 hours as needed for Pain. multivitamin Tablet, Take by mouth. 0 Chewable cetirizine (ZYRTEC) 10 mg 0 03/07/2019 Tablet pramipexole (MIRAPEX) 1 mg 0.5 mg. Indications: 0 10/19/2015 TabletIndications: pt pt states he is states he is taking .5 mg taking .5 mg documented as of this encounter Plan of Treatment Upcoming Encounters Date Type Specialty Care Team Description 09/06/2022 Appointment Hematology and Oncology 09/06/2022 Office Visit Hematology and Oncology Maikel Rebolledo MD [facility] DR HEMATOLOGY/[place] [address] Norma Garrido APRN [facility] [address] [place]ATOLOGY[place] [address] Marleen Reis MD [facility] DR HEMATOLOGY/[place] [address] documented as of this encounter Procedures Procedure Name Priority Date/Time Associated Diagnosis Comme nts HEMOGRAM Routine 05/03/2022 9:06 Idiopathic Results for this AM EDT thrombocytopenic procedure a re in purpura the results Stage 1 chronic kidney secti on. disease DIFFERENTIAL, Routine 05/03/2022 9:06 Idiopathic Results for this AUTOMATED AM EDT thrombocytopenic procedure a re in purpura the results Stage 1 chronic kidney secti on. disease HC VENIPUNCTURE Routine 05/03/2022 9:06 Idiopathic AM EDT thrombocytopenic purpura Stage 1 chronic kidney disease COMPREHENSIVE STAT 05/03/2022 9:06 Idiopathic Results for this METABOLIC PANEL AM EDT thrombocytopenic procedur e are in (NON-FASTING) purpura the results Stage 1 chronic kidney secti on. disease documented in this encounter Results Differential, Automated (05/03/2022 9:06 AM EDT) athologist Signature Neutrophils % 48.2 % [facility] Neutr Abs (ANC) 2.12 1.70 - [facility] 6.10 [facility] x10(3)/[facility] LABORATORY Lymphocytes % 39.1 % [facility] Lymphocytes Abs 1.7 0.9 - 3.2 [facility] x10(3)/[facility] LABORATORY Monocytes % 8.4 % [facility] Monocyte Abs 0.4 0.3 - 0.9 [facility] x10(3)/[facility] LABORATORY Eosinophils % 2.7 % [facility] Eosinophils Abs 0.1 0.0 - 0.4 [facility] x10(3)/[facility] LABORATORY Basophils % 0.7 % [facility] Basophils Abs 0.0 0.0 - 0.1 [facility] x10(3)/[facility] LABORATORY Immature Gran % 0.90 % [facility] Comment: Immature granulocytes(IG's)percentage an d absolute count will include metamyelocytes, myelocytes, and promyelo cytes. Blood smears from CBCs yielding IG's will be scanned manually for concor dance. If this scan disagrees with the automated IG or if promyelocytes are not ed, a manual differential will be performed. Cheli Gran Abs 0.04 0.00 - 0.04 x10(3)/[facility] Y [facility] Specimen Anatomical Collection Method Collection Time Receive d Time (Source) Location / / Volume Laterality Blood 05/03/2022 9:06 AM 9:23 EDT AM EDT Resulting Agency Comment Spec In Lab Norma Garrido APRN HEMATOLOGY ORDERABLES Performing Organization Address City/State/[place] [address] (ABNORMAL) Hemogram (05/03/2022 9:06 AM EDT) P athologist Signature WBC 4.4 4.0 - 9.5 [facility] x10(3)/[facility] LABORATORY RBC 5.34 4.58 - [facility] 5.54 [facility] x10(6)/[facility] LABORATORY Hemoglobin 15.9 13.7 - [facility] g/dL [facility] Hematocrit 44.9 40.5 - [facility] % [facility]ORATORY MCV 84.1 82.9 - [facility] 93.1 fL [facility]ORY MCH 29.8 27.5 - [facility] 32.1 pg [facility] MCHC 35.4 32.0 - [facility] 35.7 g/dL [facility] Platelets 44 (L) 145 - 357 [facility] x10(3)/[facility] LABORATORY RDWSD 39.5 36.0 - [facility] 45.0 [facility] LABORATORY RDWCV 13.1 11.4 - [facility] 13.8 % [facility] LABORATORY MPV 12.6 7.6 - 12.9 [facility] LABORATORY nRBC % Auto 0.0 % [facility] nRBC Abs Auto 0.000 0.000 - [facility] 0.000 [facility] x10(3)/[facility] LABORATORY Specimen Anatomical Collection Method Collection Time Receive d Time (Source) Location / / Volume Laterality Blood 05/03/2022 9:06 AM 9:23 EDT AM EDT Resulting Agency Comment Spec In Lab Norma Garrido APRN HEMATOLOGY ORDERABLES Performing Organization Address City/State/[place] [address] (ABNORMAL) Comprehensive metabolic panel (non-fasting) (05/03/2022 9:06 AM EDT) P athologist Signature Glucose Lvl 104 65 - 199 [facility] mg/dL [facility] Comment: Diabetes: >=200 mg/dL plus symp toms BUN 16 10 - 20 mg/dL [facility] Creatinine 1.13 0.80 - 1.50 mg/dL [facility] Sodium 136 135 - 145 mmol/L [facility] Potassium 3.7 3.5 - 5.0 mmol/L [facility] Comment: Please note: ??Patients with WBC >100,00 0 may have falsely elevated Potassium levels. ??For accurate Potassium quantif ication in these patients send serum separator tube (gold top) for subsequent determinations. ??Contact the Clinical Chemistry Laboratory if there are any qu estions. Chloride 101 98 - 107 mmol/L [facility] CO2 26 22 - 31 mmol/L [facility] Anion Gap 9 5 - 15 mmol/L [facility] Calcium 9.2 8.5 - 10.5 mg/dL [facility] Total Protein 7.1 6.1 - 8.0 g/dL [facility] Albumin 4.7 3.2 - 5.2 g/dL [facility] AST 49 (H) 0 - 39 unit/L [facility] ALT 51 0 - 55 unit/L [facility] Alk Phos 93 40 - 130 unit/L [facility] Total Bilirubin 0.5 0.2 - 1.3 mg/dL [facility] Estimated GFR 80 >=60 mL/min/1.73 m?? [facility] Comment: This patient's estimated GFR was calcula ilya using the 2020 CKD-EPI equation. The estimated GFR can vary from the martin ured GFR by up to 30% in the absence of rapidly changing kidney function. Assess ment of the estimated GFR is not appropriate when creatinine concentratio ns are rapidly changing. For clinical situations in which a more precise estim ate of GFR is necessary, consider alternative methods of GFR estimation campbell ch as a 24-hour urine creatinine clearance. Assignment of CKD stage 1-5 for patients with an eGFR near the transition point between stages may be based on clinical assessment of muscle mass and symptoms in addition to eGFR. 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
--- OUTSIDE RECORDS SUMMARY | 2022-08-02 12:58 | XMS_ITS | Encounter Summary ---
:1970 Author Organization [facility] [place] [address] Care Team Providers Name Role Phone Ruperto Shultz APRN Primary Care Provider Encounter Details Date Type Department Care Team Description 03/23/2022 Hospital Encounter Hematology and Idiopat hic Oncology at [facility] [place] [id number] Social History Tobacco Use Types Packs/Day Years [...] Visit Hematology and Oncology Maikel Rebolledo MD [facility] DR HEMATOLOGY/[place] [address] Norma Garrido APRN [facility] HEMAT[facility] [address] Marleen Reis MD [facility] DR HEMATOLOGY/[place] [address] documented as of this encounter Procedures Procedure Name Priority Date/Time Associated Diagnosis Comme nts HEMOGRAM STAT 03/23/2022 7:54 Idiopathic Results for this AM EDT thrombocytopenic procedure a re in purpura the results section. DIFFERENTIAL, STAT 03/23/2022 7:54 Idiopathic Results for this AUTOMATED AM EDT thrombocytopenic procedure a re in purpura the results section. HC VENIPUNCTURE STAT 03/23/2022 7:54 Idiopathic AM EDT thrombocytopenic purpura COMPREHENSIVE STAT 03/23/2022 7:54 Idiopathic Results for this METABOLIC PANEL AM EDT thrombocytopenic procedur e are in (NON-FASTING) purpura the results section. documented in this encounter Results Differential, Automated (03/23/2022 7:54 AM EDT) athologist Signature Neutrophils % 47.3 % [facility] Neutr Abs (ANC) 2.50 1.70 - [facility] 6.10 [facility] x10(3)/[facility] LABORATORY Lymphocytes % 42.3 % [facility] Lymphocytes Abs 2.2 0.9 - 3.2 [facility] x10(3)/[facility] LABORATORY Monocytes % 6.8 % [facility] Monocyte Abs 0.4 0.3 - 0.9 [facility] x10(3)/[facility] LABORATORY Eosinophils % 2.1 % [facility] Eosinophils Abs 0.1 0.0 - 0.4 [facility] x10(3)/[facility] LABORATORY Basophils % 0.9 % [facility] Basophils Abs 0.0 0.0 - 0.1 [facility] x10(3)/[facility] LABORATORY Immature Gran % 0.60 % [facility] Comment: Immature granulocytes(IG's)percentage an d absolute count will include metamyelocytes, myelocytes, and promyelo cytes. Blood smears from CBCs yielding IG's will be scanned manually for concor dance. If this scan disagrees with the automated IG or if promyelocytes are not ed, a manual differential will be performed. Cheli Gran Abs 0.03 0.00 - 0.04 x10(3)/[facility] MAR Y [facility] LABORATORY Specimen Anatomical Collection Method Collection Time Receive d Time (Source) Location / / Volume Laterality Blood 03/23/2022 7:54 AM 8:08 EDT AM EDT Resulting Agency Comment Spec In Lab Norma Garrido APRN HEMATOLOGY ORDERABLES Performing Organization Address City/State/[place] [address] (ABNORMAL) Hemogram (03/23/2022 7:54 AM EDT) Analysis Performed At Patho logist Time Signature WBC 5.3 4.0 - 9.5 [facility] x10(3)/[facility] LABORATORY RBC 5.57 (H) 4.58 - [facility] x10(6)/[facility] LABORATORY Hemoglobin 16.1 13.7 [facility] 16.[facility] g/dL [facility] Hematocrit 46.4 40.5 - [facility] 48.5 % [facility] MCV 83.3 82.9 - [facility] 93.1 fL [facility] MCH 28.9 27.5 - [facility] 32.1 pg [facility] MCHC 34.7 32.0 - [facility] 35.7 g/dL [facility] Platelets 59 (L) 145 - 357 [facility] x10(3)/[facility] LABORATORY RDWSD 38.4 36.0 - [facility] 45.0 [facility] LABORATORY RDWCV 12.8 11.4 - [facility] 13.8 % [facility] MPV 13.0 (H) 7.6 - 12.9 [facility] LABORATORY nRBC % Auto 0.0 % [facility] nRBC Abs Auto 0.000 0.000 - [facility] 0.000 [facility] x10(3)/[facility] LABORATORY Specimen Anatomical Collection Method Collection Time Receive d Time (Source) Location / / Volume Laterality Blood 03/23/2022 7:54 AM 8:08 EDT AM EDT Resulting Agency Comment Spec In Lab Norma Garrido APRN HEMATOLOGY ORDERABLES Performing Organization Address City/State/ZIP Code Phon e Number [place] [id number] [address] Comprehensive metabolic panel (non-fasting) (03/23/2022 7:54 AM EDT) athologist Signature Glucose Lvl 112 65 - 199 [facility] mg/dL [facility] Comment: Diabetes: >=200 mg/dL plus symp toms BUN 20 10 - 20 mg/dL [facility] Creatinine 1.13 0.80 - 1.50 mg/dL [facility] Sodium 138 135 - 145 mmol/L [facility] Potassium 4.1 3.5 - 5.0 mmol/L [facility] Comment: Please note: ??Patients with WBC >100,00 0 may have falsely elevated Potassium levels. ??For accurate Potassium quantif ication in these patients send serum separator tube (gold top) for subsequent determinations. ??Contact the Clinical Chemistry Laboratory if there are any qu estions. Chloride 101 98 - 107 mmol/L [facility] CO2 23 22 - 31 mmol/L [facility] Anion Gap 14 5 - 15 mmol/L [facility] Calcium 9.9 8.5 - 10.5 mg/dL [facility] Total Protein 7.3 6.1 - 8.0 g/dL [facility] Albumin 4.8 3.2 - 5.2 g/dL [facility] AST 24 0 - 39 unit/L [facility] ALT 43 0 - 55 unit/L [facility] Alk Phos 90 40 - 130 unit/L [facility] Total Bilirubin 0.4 0.2 - 1.3 mg/dL [facility] Estimated GFR 76 >=60 mL/min/1.73 m?? [facility] Comment: This patient? s estimated glomerular filtration rate (eGFR) is between 76 mL/min/1.73 m2 (patients with less muscl e mass per kg body weight) and 88 mL/min/1.73 m2 (patients with more muscl e mass per kg body weight) as determined by the CKD-EPI equation. Asse ssment of eGFR is not appropriate when creatinine concentrations are rapidly ch anging. For clinical decisions where creatinine clearance will affect therapy , a 24-hour urine creatinine clearance may be advised. Assignment of CKD stage 1 - 5 for patien ts with an eGFR near the transition point between stages may be based on cli nical assessment of muscle mass and symptoms in addition to eGFR. 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
--- OUTSIDE RECORDS SUMMARY | 2022-08-02 12:58 | XMS_ITS | Encounter Summary ---
:1970 Author Organization [facility] Address [address] [place] [address] Care Team Providers Name Role Phone Unknown, Provider Primary Care Provider Encounter Details Date Type Department Care Team Description 02/28/2012 Results Only [facility] Alban Jeronimo MD Laboratory Services - [address] [place] [address] [address] [place] [address] [place] [address] [phone] Social History Tobacco Use Types Packs/Day Years Used Date Never Assessed Sex Assigned at Date Recorded Not on file documented as of this encounter Plan of Treatment Not on filedocumented as of this encounter Procedures Procedure Name Priority Date/Time Associated Diagnosis Comme [facility] SURGICAL PATHOLOGY Routine 02/28/2012 0:00 EDT Re sults for this procedure are i n the results section. documented in this encounter Results SURGICAL PATHOLOGY (02/28/2012 0:00 EDT) Pathology Report: SURGICAL PATHOLOGY REPORT BRAD BAILEY Reports generated via electronic interface contain fay ginal data; LAB however they are lacking the format of the original re port. Caution should be taken when reading/interpreting unfo rmatted reports. Name: ? PRASANNA SHIPMAN ? Accession #: ? [id number] ? : ? 1970 (Age: 41) ??M ? Collect Date: ? 02/28/2012 ? Location: ? [facility] ? Receive Date: ? 012 ? Provider: DEMARCO JERONIMO MD Copy to: DAVID CARMENDERICK DO ? Final Pathologic Diagnosis: ? Skin of shoulder, right, shave biopsies (2): 1. ?Epidermal hyperplasia with hyperkerat osis and basal hyperpigmentation. ??See comment. 2. ? Superficial perivas cular inflammation with mild epidermal spongiosis. ?? Comment: ? The biopsy specimen shows areas of epidermal hy perplasia with basal hyperpigmentation and hyperkeratosis. ??These features may represent a thin seborrheic keratosis. ??There is no evidence of a charu nocytic proliferation. Both portions of tissue also have a supe rficial dermal inflammatory infiltrate with mild spongiosis. This raises the possibilit y of (concomitant) eczematous dermatitis. ??(Dr. Black)/mpl ?? Microscopic Description: ? Sections consist of t wo shave biopsies of skin that shows similar features. Both have areas of moderate acanthosis with slight hyperkeratosis. ??There are foci of parakeratosis. ??The acanthotic epidermis shows no significant atypia. Melanin pigment is evident a long the basal zone with accentuation at the tips of the rete ridges. ??Melanocytes are normal in num dedrick and morphology. ??In some areas, there is mild spongiosis with exocytosis of lym phomononuclear cells. Within the underlying dermis, there is a patchy superf icial perivascular infiltrate that is of modera te density. ??The infiltrate is composed primarily of lymphomononuclear cells although occasional eosinophil s are present. ??(Dr. Black)/mpl Document reviewed and electronically signed by: RUFINA BLACK MD Report ??Date: 03/01/2012 13:45 By the signature above, the attending physician certif ies that he/she has personally conducted a gross and/or microscopic examin ation of the described specimens and rendered or confirmed the above diagnosi s. Specimen(s) Received: ? Shave biopsy x2 R shoulder lesion Clinical History: ? New pigmented lesion R shoulder Gross Description: ? Received in formalin labelled Fucci, Col in and Rt shoulder are two irregular shave biopsies of mar skin measuring 0 .6 x 0.5 cm and 0.9 x 0.6 cm. The specimens are entirely submitted as (A1) lar tristian shave, bisected, and (A2) smaller shave, bisected. ??(Gypsy Silveira)/hanh End of Report Specimen Performing Organization Address City/State/ZIP Code Phon e Number [facility] [address] [place] [address] SERVICES [facility] [address] [place] [address] documented in this encounter Visit Diagnoses Not on filedocumented in this encounter Care Teams [employer] Machine Operator Relationship Specialty Start Date End Date Unknown, Provider, PCP - General 02/29/12 05/20/15 documented as of this encounter
--- OUTSIDE RECORDS SUMMARY | 2022-08-02 12:58 | XMS_ITS | Encounter Summary ---
:1970 Author Organization [place] [address] Care Team Providers Name Role Phone Lexii Rupertovenu Packer APRN Primary Care Provider Encounter Details Date Type Department Care Team Description 06/06/2022 Ancillary Procedure Radiology Library at [facility] Reginald Barber MD [address] [address] [place] [address] [phone] Social History Tobacco Use Types Packs/Day Years [...] Visit Hematology and Oncology Maikel Rebolledo MD [facility] [address] HEMATOLOGY/[place] [address] Norma Garrido APRN [facility] [address] [place]EMATOLOGY[place] [address] Marleen Reis MD [facility] [address] HEMATOLOGY/[place] [address] documented as of this encounter Procedures Procedure Name Priority Date/Time Associated Diagnosis Comme nts FILM LIBRARY Routine 06/06/2022 12:00 AM Results for this STORAGE ONLY CT EDT procedure ar e in ABDOMEN AND PELVIS the resul ts section. documented in this encounter Results Film Library- Storage Only CT Abdomen & Pelvis (06/06/2022 12:00 AM EDT) Specimen (Source) Anatomical Location Collection Method / Collectio n Time Received Time / Laterality Volume Narrative RAD - 06/27/2022 4:16 PM EDT This exam is auto-finalizing. It's purpo se is for storage only. Reginald Barber MD [facility] FILM LIBRARY ORDERABLES Performing Organization Address City/State/ZIP Code Phon e Number [place], [place] documented in this encounter Visit Diagnoses Not on filedocumented in this encounter Care Teams Video Presentation Operator Relationship Specialty Start Date End Date Ruperto Shultz APRN PCP - General Family Medicine 03/23/[address] [place] [address] documented as of this encounter
--- OUTSIDE RECORDS SUMMARY | 2022-08-02 12:58 | XMS_ITS | Encounter Summary ---
:1970 Author Organization [facility] Address [address] [place] [address] Care Team Providers Name Role Phone Kurtis Kingsley DO Primary Care Provider Encounter Details Date Type Department Care Team Description 01/04/2018 Hospital Encounter [facility] [place] Unknown, Provider, [facility] [phone] [place] [address] (Work) [phone] Social History Tobacco Use Types Packs/Day Years Used Date Never Assessed Sex Assigned at Date Recorded Not on file documented as of this encounter Discharge Disposition Disposition Code Departure Means Destination Home or Self Detention documented in this encounter Plan of Treatment Not on filedocumented as of this encounter Visit Diagnoses Not on filedocumented in this encounter Care Teams Peripheral Edp Equipment Operator Relationship Specialty Start Date End Date Kurtis Kingsley DO PCP - General 05/21/15 [address] [place], [place] [address] documented as of this encounter
--- OUTSIDE RECORDS SUMMARY | 2022-08-02 12:58 | XMS_ITS | Encounter Summary ---
:1970 Author Organization [facility] [place] [address] Care Team Providers Name Role Phone Ruperto Shultz APRN Primary Care Provider Encounter Details Date Type Department Care Team Description 05/25/2022 Hospital Encounter Laboratory Idiopathic thrombocytopenic purpura; [facility] Stage 1 c hronic kidney disease; [place] [id number] Social History Tobacco Use Types Packs/Day Years [...] Visit Hematology and Oncology Maikel Rebolledo MD [facility] [address] HEMATOLOGY/[place] [address] [facility] [place]EMATOLOGY[place] [address] [facility] DR HEMATOLOGY/[place] [address] documented as of this encounter Procedures Procedure Name Priority Date/Time Associated Diagnosis Comme nts [facility] FUENTES TEST-FUENTES Routine 05/25/2022 8:00 PM Re sults for this EDT procedure are i n the results section. documented in this encounter Results [facility] Fuentes Test-Fuentes (05/25/2022 8:00 PM EDT) [facility] Method Time Signature [facility] TIA OVIDIO Test ?Result ? Flag ??Unit ??RefValue [facility] Occult Blood, QL, Immunochemical, F LABORATORY ??Occult Blood, Fecal ? Negative ? Negative ?Negative result. ??This test will not detect upper ?gastrointestinal bleeding; the HemoQuant test (1167)sh ould ?be ordered if clinically indicated. ?Test Performed by: ?[facility] ?[address] [place] [address] ?Distribution Estimator: Jay Acosta M.D. 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
--- OUTSIDE RECORDS SUMMARY | 2022-08-02 12:58 | XMS_ITS | Clinical Summary ---
:1970 Author Organization [facility] [place] [address] Care Team Providers Name Role Phone Lexii Ruperto Packer APRN Primary Care Provider Allergies Active Allergy Reactions Severity Noted Date Comments Pollen, Micronized Itching Medium 10/23/2011 Watery ey es and sneezing Medications Medication Sig Dispensed Refills Start Date End Date Status pramipexole (MIRAPEX) 1 0.5 mg. 0 10/19/2015 Active mg TabletIndications: pt Indications: pt states he is taking .5 states he is mg taking .5 mg cetirizine (ZYRTEC) 10 0 03/07/2019 Active mg Tablet multivitamin Tablet, Take by mouth. 0 Active Chewable acetaminophen (Tylenol) Take 1,000 mg by 0 Active 500 mg Tablet mouth every 6 hours as needed for Pain. Active Problems Problem Noted Date Right buttock pain 05/25/2020 Spleen enlarged 02/22/2018 Multiple lipomas 03/20/2017 Obesity 03/20/2017 Thrombocytopenia 04/20/2016 Resolved Problems Problem Noted Date Resolved Date Parkinson's disease 03/20/2017 07/11/2017 Encounters Date Type Specialty Care Team Description 07/11/2022 Ancillary Radiology [place], Hemangioma, uns pecified Procedure Reginald Barber, tariq CLAY[place] 07/06/2022 Ancillary Radiology [place], Procedure Reginald Barber MD 06/27/2022 Ancillary Radiology [place], Abdominal pain, Procedure Reginald Barber, unspecified abdominal MD location 06/06/2022 Ancillary Radiology Grace Hansen MD 05/25/2022 Hospital Lab Idiopathic thro mbocytopenic purpura; Encounter Stage 1 chronic kidney disease; Thrombocytopeni a 05/03/2022 Office Visit Hematology and Maikel Rebolledo Idiopathic thrombocytopenic purpura; Oncology MD [place] Stage 1 chronic kidney disease; Hema Norma Thrombocytop enia C, [employer]GRAM[employer] 05/03/2022 Hospital Hematology and Idiopathic th rombocytopenic purpura; Encounter Oncology Stage 1 chronic kidney disease from Last 3 Months Family History Medical History Relation Comments High Blood Pressure Father Depression Maternal Uncle Relation Status Comments Father Maternal Uncle Social History Tobacco Use Types Packs/Day Years [...] Assigned at Date Recorded Not on file Last Filed Vital Signs Vital Sign Reading Time Taken Comments Blood Pressure 134/101 05/03/2022 10:24 AM EDT Pulse 76 05/03/2022 10:24 AM EDT Temperature 36.4 ??C (97.5 ??F) 05/03/2022 10:24 AM EDT Respiratory Rate 18 05/03/2022 10:24 AM EDT Oxygen Saturation 97% 05/03/2022 10:24 AM EDT Inhaled Oxygen Concentration - - Weight 101.9 kg (224 lb 9.6 oz) 05/03/2022 10:24 AM EDT Height 176 cm (5' 9.29) 05/03/2022 10:24 AM EDT Body Mass Index 32.89 05/03/2022 10:24 AM EDT Plan of Treatment Upcoming Encounters Date Type Specialty Care Team Description 09/06/2022 Appointment Hematology and Oncology 09/06/2022 Office Visit Hematology and Oncology Maikel Rebolledo MD [facility] HEMATOLOGY/[place] [address] Norma Garrido APRN [facility] [address] HEMATOLOGY-[place] [address] Marleen Reis MD [facility] DR HEMATOLOGY/[place] [address] Health Maintenance Due Date Last Done Comments Covid-19 Vaccine (#1) 1977 Hepatitis C Screening 1990 Lipid Screening 1990 Tdap adult 1991 Tetanus vaccine 1991 Colonoscopy 2017 Influenza (Flu) vaccine (1 of - 07/06/2022 Influenza standard series) Diabetes Screening (HgbA1C or 05/03/2025 05/03/2022, 2021, Glucose) 01/25/2022, Additional history exists HIV screen Completed 11/03/2015 Procedures Procedure Name Priority Date/Time Associated Diagnosis Comme nts REQUEST FOR 2ND READ Routine 07/11/2022 3:36 Hemangioma, unspe cified Results for this MR ABDOMEN PM EDT site procedure are i n the results section. FILM LIBRARY STORAGE Routine 07/06/2022 12:00 Res ults for this ONLY MR ABDOMEN AM EDT procedure ar e in the results section. REQUEST FOR 2ND READ Routine 06/27/2022 4:51 Abdominal pain, R esults for this CT ABDOMEN AND PELVIS PM EDT unspecified abdomin al procedure are in location the results section. FILM LIBRARY STORAGE Routine 06/06/2022 12:00 Res ults for this ONLY CT ABDOMEN AND AM EDT procedur e are in PELVIS the results section. [facility] [place]-FUENTES Routine 05/25/2022 8:00 Resul ts for this PM EDT procedure are i n the results section. DIFFERENTIAL, Routine 05/03/2022 9:06 Idiopathic Results for this AUTOMATED AM EDT thrombocytopenic procedure a re in purpura the results Stage 1 chronic kidney secti on. disease HEMOGRAM Routine 05/03/2022 9:06 Idiopathic Results for [...] Stage 1 chronic kidney secti on. disease from Last 3 Months Results Request for 2nd read MR Abdomen (07/11/2022 3:36 PM EDT) Anatomical Region Laterality Modality SO Specimen (Source) Anatomical Location Collection Method / Collectio n Time Received Time / Laterality Volume Impressions 07/12/2022 7:25 AM EDT 1. ??19 mm left hepatic lobe benign vita ngioma. ??This requires no further imaging follow-up. 2. ??Other scattered simple hepatic cyst s, also benign without need for further imaging follow-up. 3. ??No suspicious hepatic lesions. 4. ??Hepatic steatosis. 5. ??Splenomegaly = 17 cm. Thank you for letting us participate in the care of this patient. ??If you are a health care provider and have any questi ons regarding this report, please contact the number below. ??For patients who have questions please contact the health emergency care attendant that requested your imaging first. ? Narrative 07/12/2022 7:25 AM EDT EXAMINATION: * ??REQUEST FOR 2ND READ MR ABDOMEN * ??MRI OF THE ABDOMEN WITHOUT AND WITH INTRAVENOUS CONTRAST. CLINICAL HISTORY: Hepatic lesion of uncl ear etiology. ??Follow-up. ??Concern for malignancy. ??Request for second interpr etation of outside imaging study * ??Sending institution: [facility]. * ??DATE OF EXAM: July 06, 2022. * ??I believe a reinterpretation of this exam may alter care of Patient. Yes TECHNIQUE: MRI of the abdomen without an d with intravenous contrast was performed at [facility] on July 06, 2022. Multiplanar, multisequence MR imaging of the abdomen was performed prior to and following the administration of intraven ous contrast. ??Per report, the patient received 14 mL Dotarem intravenous contr ast. COMPARISON: Correlation is made to CT of the abdomen and pelvis dated 06/06/2022 and 01/01/2018 FINDINGS: Acetaldehyde Converter Operator Images: Noncontributory. Lower chest: Visualized structures withi n the inferior thorax are within normal limits. Liver: There is mild diffuse signal drop out on out of phase imaging, consistent with hepatic steatosis. ??In the superol ateral aspect of the left hepatic lobe, there is a 19 mm T1 hypointense, T2 hype rintense lesion which on postcontrast imaging demonstrates progressive periphe ral nodular enhancement which matches blood pool, consistent with a hemangioma . ??There are other scattered T2 hyperintense, T1 hypointense, nonenhanci ng lesions throughout the liver, consistent with benign hepatic cysts. Bile ducts: Normal. Gallbladder: Normal. Pancreas: There is mild atrophy of the p ancreas with associated fatty replacement. Spleen: The spleen is enlarged with an a nteroposterior diameter of 17 cm. Adrenals: Normal. Kidneys: There are a few scattered sub-5 mm T2 hyperintense, T1 hypointense, nonenhancing renal cysts. Vasculature: The aorta is normal in cour se and caliber. ??The origin the mesenteric and renal arteries are within normal limits. ??The inferior vena cava is normal in course and caliber. ??The s uperior mesenteric, splenic, and portal veins are patent. ??The hepatic veins ar e patent. ??The renal veins are patent. Lymph nodes: There are no pathologically enlarged lymph nodes. Bowel: Limited evaluation the distal eso phagus is unremarkable. ??The stomach is partially distended. ??The duodenum is n ormal in course and caliber. ??The remainder the visualized small and large bowel within normal limits. Peritoneum and mesentery: No ascites or loculated fluid collection. Marrow Signal: Normal. Procedure Note Baldemar Melton, DO - 09/07/2022Formatti ng of this note might be different from the original. EXAMINATION: * REQUEST FOR 2ND READ MR ABDOMEN * MRI OF THE ABDOMEN WITHOUT AND WITH IN TRAVENOUS CONTRAST. CLINICAL HISTORY: Hepatic lesion of uncl ear etiology. Follow-up. Concern for malignancy. Request for second interpret ation of outside imaging study * Sending institution: [facility]. * DATE OF EXAM: July 06, 2022. * I believe a reinterpretation of this e xam may alter care of Patient. Yes TECHNIQUE: MRI of the abdomen without an d with intravenous contrast was performed at [facility] on July 06, 2022. Multiplanar, multisequence MR imaging of the abdomen was performed prior to and following the administration of intraven ous contrast. Per report, the patient received 14 mL Dotarem intravenous contr ast. COMPARISON: Correlation is made to CT of the abdomen and pelvis dated 06/06/2022 and 01/01/2018 FINDINGS: Acetaldehyde Converter Operator Images: Noncontributory. Lower chest: Visualized structures withi n the inferior thorax are within normal limits. Liver: There is mild diffuse signal drop out on out of phase imaging, consistent with hepatic steatosis. In the superolat eral aspect of the left hepatic lobe, there is a 19 mm T1 hypointense, T2 hype rintense lesion which on postcontrast imaging demonstrates progressive periphe ral nodular enhancement which matches blood pool, consistent with a hemangioma . There are other scattered T2 hyperintense, T1 hypointense, nonenhanci ng lesions throughout the liver, consistent with benign hepatic cysts. Bile ducts: Normal. Gallbladder: Normal. Pancreas: There is mild atrophy of the p ancreas with associated fatty replacement. Spleen: The spleen is enlarged with an a nteroposterior diameter of 17 cm. Adrenals: Normal. Kidneys: There are a few scattered sub-5 mm T2 hyperintense, T1 hypointense, nonenhancing renal cysts. Vasculature: The aorta is normal in cour se and caliber. The origin the mesenteric and renal arteries are within normal limits. The inferior vena cava is normal in course and caliber. The sup erior mesenteric, splenic, and portal veins are patent. The hepatic veins are patent. The renal veins are patent. Lymph nodes: There are no pathologically enlarged lymph nodes. Bowel: Limited evaluation the distal eso phagus is unremarkable. The stomach is partially distended. The duodenum is nor mal in course and caliber. The remainder the visualized small and large bowel within normal limits. Peritoneum and mesentery: No ascites or loculated fluid collection. Marrow Signal: Normal. IMPRESSION 1. 19 mm left hepatic lobe benign brandt ioma. This requires no further imaging follow-up. 2. Other scattered simple hepatic cysts, also benign without need for further imaging follow-up. 3. No suspicious hepatic lesions. 4. Hepatic steatosis. 5. Splenomegaly = 17 cm. Thank you for letting us participate in the care of this patient. If you are a health care provider and have any questi ons regarding this report, please contact the number below. For patients w ho have questions please contact the health emergency care attendant that requested your imaging first. Electronically signed by: Baldemar Melton DO, [facility] ([phone]), at 07/12/2022 7:25 AM MD LEROY So OUTSIDE INTERPRETATION ORDERABLES Film Library- Storage Only MR Abdomen (07/06/2022 12:00 AM EDT) Specimen (Source) Anatomical Location Collection Method / Collectio n Time Received Time / Laterality Volume Narrative [facility] - 07/11/2022 3:32 PM EDT This exam is auto-finalizing. It's purpo se is for storage only. MD LEROY So FILM LIBRARY ORDERABLES Performing Organization Address City/State/ZIP Code Phon e Number [place], [place] Request For 2nd Read CT Abdomen & Pelvis (06/27/2022 4:51 PM EDT) Anatomical Region Laterality Modality Abdomen, Pelvis SO Specimen (Source) Anatomical Location Collection Method / Collectio n Time Received Time / Laterality Volume Impressions 06/28/2022 11:43 AM EDT 1. ??Tiny fat-containing umbilical herni a and small bilateral fat-containing inguinal hernias. No spigelian hernia. 2. ??Stable lobular lesion in the left h epatic lobe over a 4 year interval consistent with benign finding. This is most likely hemangioma. 3. ??Indeterminate sclerotic lesion in t he left ilium is very likely benign given the stability and lack of aggressive fea tures on the interval MRI. 4. ??Splenomegaly of uncertain etiology and significance. 5. ??Hepatic steatosis. I have personally reviewed the image(s) and the resident's interpretation and agree with the findings, Kacie Nelson MD at 06/28/2022 11:43 AM Thank you for letting us participate in the care of this patient. ??If you are a health care provider and have any questi ons regarding this report, please contact the number below. ??For patients who have questions please contact the health emergency care attendant that requested your imaging first. ? Narrative 06/28/2022 11:43 AM EDT EXAMINATION: REQUEST FOR 2ND READ CT ABDOMEN AND PELVIS CLINICAL HISTORY: SPIGELIAN AND RLQ ZAIRE [place]; Sending Institution [facility]; Date of exam [id number]; I believe a reinterpretat ion of this exam may alter care of Patient. Yes COMPARISON: CT abdomen and pelvis 018. MRI pelvis 04/07/2020 TECHNIQUE: Axial sagittal and coronal im ages from an oral and IV contrast enhanced CT scan of the abdomen and pelv is dated 06/06/2022 are submitted from [facility]. FINDINGS: Lower chest: Normal. Liver: Liver measures 21 cm in craniocau carroll dimension and 66 Hounsfield units. 1.8 x 2.5 cm low attenuating focus in th e left lobe with possible peripheral nodular enhancement (series 6 image 61) is stable since CT 01/01/2018. 2 Subcentimeter hypoattenuating simple cys ts are unchanged. Widely patent hepatic and portal veins. Bile ducts: Nondilated. Gallbladder: No calcified gallstones. No rmal caliber wall. Pancreas: Normal attenuation without emre eros dilatation. Spleen: Enlarged to 17 cm. No focal lesi ons. Patent splenic vein. Adrenals: Normal. Kidneys: Left kidney is normal. Punctate low-attenuation lesion in the right kidney too small to characterize but fav ored to be a cyst. No hydronephrosis or urolithiasis. Urinary Bladder: Normal. Vasculature: No aneurysm. The celiac, me senteric and renal arteries are patent. Scattered atherosclerotic calcifications of the internal iliac arteries. Lymph Nodes: No pathologically enlarged lymph nodes. Bowel: Nondilated, no wall thickening. N ormal appendix. Peritoneum and mesentery: No ascites, fr ee air, or loculated fluid collection. No mesenteric inflammation. Abdominal wall: Tiny fat-containing umbi lical hernia. Small bilateral fat-containing inguinal hernias. No spig indu hernia identified. Reproductive organs: Normal. Osseous structures: No suspicious lesion s. Right total hip arthroplasty. ??A 15 mm faintly sclerotic lesion in the left ilium is unchanged since 2018. No bone marrow edema was seen in this region on the interval MRI. Procedure Note Kacie Nelson MD - 06/28/2022Formatt ing of this note might be different from the original. EXAMINATION: REQUEST FOR 2ND READ CT ABD OMEN AND PELVIS CLINICAL HISTORY: SPIGELIAN AND RLQ ZAIRE [place]; Sending Institution [facility]; Date of exam [id number]; I believe a reinterpretat ion of this exam may alter care of Patient. Yes COMPARISON: CT abdomen and pelvis 018. MRI pelvis 04/07/2020 TECHNIQUE: Axial sagittal and coronal im ages from an oral and IV contrast enhanced CT scan of the abdomen and pelv is dated 06/06/2022 are submitted from [facility]. FINDINGS: Lower chest: Normal. Liver: Liver measures 21 cm in craniocau carroll dimension and 66 Hounsfield units. 1.8 x 2.5 cm low attenuating focus in th e left lobe with possible peripheral nodular enhancement (series 6 image 61) is stable since CT 01/01/2018. 2 Subcentimeter hypoattenuating simple cys ts are unchanged. Widely patent hepatic and portal veins. Bile ducts: Nondilated. Gallbladder: No calcified gallstones. No rmal caliber wall. Pancreas: Normal attenuation without emre eros dilatation. Spleen: Enlarged to 17 cm. No focal lesi ons. Patent splenic vein. Adrenals: Normal. Kidneys: Left kidney is normal. Punctate low-attenuation lesion in the right kidney too small to characterize but fav ored to be a cyst. No hydronephrosis or urolithiasis. Urinary Bladder: Normal. Vasculature: No aneurysm. The celiac, me senteric and renal arteries are patent. Scattered atherosclerotic calcifications of the internal iliac arteries. Lymph Nodes: No pathologically enlarged lymph nodes. Bowel: Nondilated, no wall thickening. N ormal appendix. Peritoneum and mesentery: No ascites, fr ee air, or loculated fluid collection. No mesenteric inflammation. Abdominal wall: Tiny fat-containing umbi lical hernia. Small bilateral fat-containing inguinal hernias. No spig indu hernia identified. Reproductive organs: Normal. Osseous structures: No suspicious lesion s. Right total hip arthroplasty. A 15 mm faintly sclerotic lesion in the left ilium is unchanged since 2018. No bone marrow edema was seen in this region on the interval MRI. IMPRESSION 1. Tiny fat-containing umbilical hernia and small bilateral fat-containing inguinal hernias. No spigelian hernia. 2. Stable lobular lesion in the left hep atic lobe over a 4 year interval consistent with benign finding. This is most likely hemangioma. 3. Indeterminate sclerotic lesion in the left ilium is very likely benign given the stability and lack of aggressive fea tures on the interval MRI. 4. Splenomegaly of uncertain etiology an d significance. 5. Hepatic steatosis. I have personally reviewed the image(s) and the resident's interpretation and agree with the findings, Kacie Nelson MD at 06/28/2022 11:43 AM Thank you for letting us participate in the care of this patient. If you are a health care provider and have any questi ons regarding this report, please contact the number below. For patients w ho have questions please contact the health emergency care attendant that requested your imaging first. Reginald Barber MD IMG OUTSIDE INTERPRETATION ORDERABLES Film Library- Storage Only CT Abdomen & Pelvis (06/06/2022 12:00 AM EDT) Specimen (Source) Anatomical Location Collection Method / Collectio n Time Received Time / Laterality Volume Narrative RAD - 06/27/2022 4:16 PM EDT This exam is auto-finalizing. It's purpo se is for storage only. Reginald Barber MD [facility] FILM LIBRARY ORDERABLES Performing Organization Address City/[facility]/ZIP Code Phon e Number RAD RAD [facility]entes Test-[place] (05/25/2022 8:00 PM EDT) [facility] Method Time [facility] TIA OVIDIO Test ?Result ? Flag ??Unit ??RefValue [facility] Occult Blood, QL, Immunochemical, F LABORATORY ??Occult Blood, Fecal ? Negative ? Negative ?Negative result. ??This test will not detect upper ?gastrointestinal bleeding; the HemoQuant test (0514)sh ould ?be ordered if clinically indicated. ?Test Performed by: ?[facility] ?[address] [place] [address] ?Interactive Account Manager: Jay Acosta M.D. Ph.D.; CLIA# [id number] Specimen Anatomical Collection Method Collection Time Receive d Time (Source) Location / / Volume Laterality Other Other / Unknown 05/25/2022 8:00 PM 2021 EDT 11:08 AM EDT Resulting Agency Comment Spec In Lab Maikel Rebolledo MD CHEMISTRY ORDERABLES Performing Organization Address City/State/[place] [address] (ABNORMAL) Hemogram (05/03/2022 9:06 AM EDT) athologist Signature WBC 4.4 4.0 - 9.5 [facility] x10(3)/[facility] LABORATORY RBC 5.34 4.58 - TIA OVIDIO 5.54 [facility] x10(6)/[facility] LABORATORY Hemoglobin 15.9 13.7 - [facility] 16.5 g/dL [facility] LABORATORY Hematocrit 44.9 40.5 - [facility] 48.5 % [facility] LABORATORY MCV 84.1 82.9 - [facility] LABORATORY MCH 29.8 27.5 - [facility] 32.1 pg [facility] LABORATORY MCHC 35.4 32.0 - [facility] 35[facility] g/dL [facility] LABORATORY Platelets 44 (L) 145 - 357 [facility] x10(3)/[facility] LABORATORY RDWSD 39.5 36.0 - [facility] OVIDIO 45.0 [facility] LABORATORY RDWCV 13.1 11.4 - [facility] OVIDIO 13.8 % [facility] LABORATORY MPV 12.6 7.6 - 12.9 [facility] LABORATORY nRBC % Auto 0.0 % [facility] LABORATORY nRBC Abs Auto 0.000 0.000 - [facility] OVIDIO 0.000 [facility] x10(3)/[facility] LABORATORY Specimen Anatomical Collection Method Collection Time Receive d Time (Source) Location / / Volume Laterality Blood 05/03/2022 9:06 AM 9:23 EDT AM EDT Resulting Agency Comment Spec In Lab Norma Garrido APRN HEMATOLOGY ORDERABLES Performing Organization Address City/State/[place] [address] Differential, Automated (05/03/2022 9:06 AM EDT) athologist Signature Neutrophils % 48.2 % [facility] LABORATORY Neutr Abs (ANC) 2.12 1.70 - [place] OV[place]IO 6.10 [facility] x10(3)/[facility] LABORATORY Lymphocytes % 39.1 % [facility] LABORATORY Lymphocytes Abs 1.7 0.9 - 3.2 [facility] x10(3)/[facility] LABORATORY Monocytes % 8.4 % [facility] LABORATORY Monocyte Abs 0.4 0.3 - 0.9 [facility] x10(3)/[facility] LABORATORY Eosinophils % 2.7 % [facility] LABORATORY Eosinophils Abs 0.1 0.0 - 0.4 [facility] x10(3)/[facility] LABORATORY Basophils % 0.7 % [facility] LABORATORY Basophils Abs 0.0 0.0 - 0.1 [facility] x10(3)/[facility] LABORATORY Immature Gran % 0.90 % [...] Cheli Gran Abs 0.04 0.00 - 0.04 x10(3)/[facility] MAR Y [facility] LABORATORY Specimen Anatomical Collection Method Collection Time Receive d Time (Source) Location / / Volume Laterality Blood 05/03/2022 9:06 AM 9:23 EDT AM EDT Resulting Agency Comment Spec In Lab Norma Garrido APRN HEMATOLOGY ORDERABLES Performing Organization Address City/State/[place] [address] (ABNORMAL) Comprehensive metabolic panel (non-fasting) (05/03/2022 9:06 AM EDT) P athologist Signature Glucose Lvl 104 65 - 199 [facility] mg/dL [facility] LABORATORY Comment: Diabetes: >=200 mg/dL plus symp toms BUN 16 10 - 20 mg/dL [facility] LABORATORY Creatinine 1.13 0.80 - 1.50 mg/dL [facility] LABORATORY Sodium 136 135 - 145 mmol/L [facility] LABORATORY Potassium 3.7 3.5 - 5.0 mmol/L [facility] LABORATORY Comment: Please note: ??Patients with WBC [...] Anion Gap 9 5 - 15 mmol/L [facility] LABORATORY Calcium 9.2 8.5 - 10.5 mg/dL [facility] LABORATORY Total Protein 7.1 6.1 - 8.0 g/dL [facility] LABORATORY Albumin 4.7 3.2 - 5.2 g/dL [facility] LABORATORY AST 49 (H) 0 - 39 unit/L [facility] LABORATORY ALT 51 0 - 55 unit/L [facility] LABORATORY Alk Phos 93 40 - 130 unit/L [facility] LABORATORY Total Bilirubin 0.5 0.2 - 1.3 mg/dL [facility] LABORATORY Estimated GFR 80 >=60 mL/min/1.73 m?? [...] Organization Address City/State/[place] [address] from Last 3 Months Insurance Payer Benefit Plan / Subscriber ID Effective Dates Phone Addre ss Type Group [place] [place] [id number] 2021-Prese [phone] [address] [place] [address] Care Teams Organizational Development Specialist Relationship Specialty Start Date End Date Ruperto Shultz APRN PCP - General Family Medicine 03/23/[address] [place] [address]
--- OUTSIDE RECORDS SUMMARY | 2022-08-02 12:58 | XMS_ITS | Encounter Summary ---
:1970 Author Organization [facility] [place] [address] Care Team Providers Name Role Phone Ruperto Shultz APRN Primary Care Provider Reason for Visit Reason Comments Follow-up Encounter Details Date Type Department Care Team Description 05/03/2022 Office Visit Hematology and Maikel Rebolledo MD [facility] DR HEMATOLOGY/[place] [address] Idiopathic thrombocytopenic purpura; Oncology at [facility] Norma Garrido APRN [facility] DR [place]EMATOLOGY[place] [address] Stage 1 chronic kidney disease; [place] [id number] Social History Tobacco Use Types Packs/Day Years [...] on file documented as of this encounter Last Filed Vital Signs Vital Sign Reading [...] Mass Index 32.89 05/03/2022 10:24 AM EDT documented in this encounter Progress Notes Maikel Rebolledo MD - 05/03/2022 10:30 AM EDT Images from the original note were not included. Attending Physician: Referring physician: Ruperto Shultz APRN Reason for f/up: Thrombocytopenia.-Chronic ITP HPI: 49 y/o male with Hx of alloimmune thrombocytopenia at presenting for evaluation of thrombocytopenia. ?? Oct 2015: Presented to local ED with a big bruise on left thigh. ?? Labs showed: WBC: 5.45K, plt: 83K, Hgb: 17g/dL PT: 13.3, D.dimer:159 BUN/Sr.Cr: 21/1.40 Hep C antibody: negative. ?? Last CBC was few years ago and does not recollect ever being told that his plt count was abnormal ?? He had one knee surgery for torn meniscus and 2 back surgeries for lumbar disc disease. is his spine surgeon and the surgeries were in 12/2012 and 12/2014. He didn't have CBC priorto these spine surgeries and these surgeries were uncomplicated with no excessive bleeding. 2018: Ct done for other reasons - enlarged spleen June 2020 in [facility] reports that he had his right hip replaced December 2019:-The patient was diagnosed with Covid. He was not vaccinated at the time. In July2021, he continues to have signs and symptoms of long-haul syndrome including memory loss and fatigue. April 2022: Had COVID x 2 despite vaccinations. Plates at 40K - slow downward trend INTERIM HISTORY: Mr Shipman presents to clinic today for follow-up of his ITP. He was first seen by us in October 2015. Since that time, his platelets are slowly decreasing over the past 5 yrs. He has not had any abnormal bleeding bruising or petechiae. He does note an occasional bright red blood per rectum. Prasanna had a colonoscopy 3 years ago which was normal. No issues with early satiety or weight loss. Staying active at home. He notes weight gain, abdominal fullness, and pressure in his right groin which he believes is his inguinal hernia acting up. He is due to see his surgeon next week. He seems to be experiencing some signs and symptoms from COVID. His memory is better but he notes ongoing fatigue and lethargy. Flu vaccine: No. Prefers not to have one Review of systems: Constitutional: as above Eyes: negative Respiratory: Negative. Cardiovascular: Negative. Gastrointestinal: GERD ---> chronic. Genitourinary: Negative. Skin: Negative. Neurological: as above Hematological: as above Psychiatric/Behavioral: Negative. Musculoskeletal: Recovering from right total hip replacement June 2020 Past Medical History: - Lipomas - Restless leg syndrome - lasik surgery for vision correction - Knee surgery for torn meniscus and back surgeries : in 2012, 12/2014; - Back surgery Allergies: Pollen, micronized Medications: Current Outpatient Medications on File Prior to Visit Medication Sig Dispense Refill ??? acetaminophen (Tylenol) 500 mg Tablet Take 1,000 mg by mouth every 6 hours as needed for Pain. ??? multivitamin Tablet, Chewable Take by mouth. ??? cetirizine (ZYRTEC) 10 mg Tablet ??? pramipexole (MIRAPEX) 1 mg Tablet 0.5 mg. Indications: pt states he is taking .5 mg No current facility-administered medications on file prior to visit. 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 Family History: - Mother: was tested negative for PLT antigen 1; never had low plt count; - Father: htn, dlp - Siblings: brother and sister: both healthy; His sister also had low plt count at and was transfused; no issues now. Brother is a road hogger operator at [employer]. 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 Physical Exam: Blood pressure (Abnormal) 134/101, pulse 76, temperature 36.4 ??C (97.5 ??F), temperature source Temporal, resp. rate 18, height 176 cm (5' 9.29), weight 101.9 kg (224 lb 9.6 oz), SpO2 97 %. GENERAL: Prasanna looks well today HEENT: Oropharynx clear without lesions or thrush. No petechiae NECK: Supple and without adenopathy or thyroid enlargement. CARDIAC: Regular rate and rhythm without S3, S4 or murmurs. LUNGS: Clear to auscultation bilaterally. No rales, rhonchi or wheezing. ABDOMEN: Mild discomfort in the left upper and lower quadrant of the abdomen without any findings ofsplenomegaly. He did have fullness in all quadrants with mild distention. EXTREMITIES: No edema, cyanosis or clubbing. SKIN: No rashes or lesions. No bruises or petechiae. MUSCULOSKELETAL: no abn NEUROLOGICAL: Alert and oriented to person, place and time. : I could not feel a discrete hernia into the groin based on inguinal exam as well as with testicular exam. Labs: Recent Results (from the past 72 hour(s)) Comprehensive metabolic panel (non-fasting) Result Value Ref Range Glucose Lvl 104 65 - 199 mg/dL BUN 16 10 - 20 mg/dL Creatinine 1.13 0.80 - 1.50 mg/dL Sodium 136 135 - 145 mmol/L Potassium 3.7 3.5 - 5.0 mmol/L Chloride 101 98 - 107 mmol/L CO2 26 22 - 31 mmol/L Anion Gap 9 5 - 15 mmol/L Calcium 9.2 8.5 - 10.5 mg/dL Total Protein 7.1 6.1 - 8.0 g/dL Albumin 4.7 3.2 - 5.2 g/dL AST 49 (H) 0 - 39 unit/L ALT 51 0 - 55 unit/L Alk Phos 93 40 - 130 unit/L Total Bilirubin 0.5 0.2 - 1.3 mg/dL Estimated GFR 80 >=60 mL/min/1.73 m?? Hemogram Result Value Ref Range WBC 4.4 4.0 - 9.5 x10(3)/mcL RBC 5.34 4.58 - 5.54 x10(6)/mcL Hemoglobin 15.9 13.7 - 16.5 g/dL Hematocrit 44.9 40.5 - 48.5 % MCV 84.1 82.9 - 93.1 fL MCH 29.8 27.5 - 32.1 pg MCHC 35.4 32.0 - 35.7 g/dL Platelets 44 (L) 145 - 357 x10(3)/mcL RDWSD 39.5 36.0 - 45.0 fL RDWCV 13.1 11.4 - 13.8 % MPV 12.6 7.6 - 12.9 fL nRBC % Auto 0.0 % nRBC Abs Auto 0.000 0.000 - 0.000 x10(3)/mcL Differential, Automated Result Value Ref Range Neutrophils % 48.2 % Neutr Abs (ANC) 2.12 1.70 - 6.10 x10(3)/mcL Lymphocytes % 39.1 % Lymphocytes Abs 1.7 0.9 - 3.2 x10(3)/mcL Monocytes % 8.4 % Monocyte Abs 0.4 0.3 - 0.9 x10(3)/mcL Eosinophils % 2.7 % Eosinophils Abs 0.1 0.0 - 0.4 x10(3)/mcL Basophils % 0.7 % Basophils Abs 0.0 0.0 - 0.1 x10(3)/mcL Immature Gran % 0.90 % Cheli Gran Abs 0.04 0.00 - 0.04 x10(3)/mcL Radiology/Studies: None to review spleen. It is 15.7 cm from [facility] CT scan Assessment/Plan: 51 y/o M with thrombocytopenia. His work up did not reveal an etiology. We first saw Prasanna in October 2015. Since that time, his platelets have gradually decreased over the ensuing years. He has denied any problems with bleeding or bruising in the past. In Jun 2020, He had right total hip replacementwithout any evidence of bleeding or complications postoperatively. , Has a number of signs and symptoms today that are unrelated to thrombocytopenia. In particular, itsounds like he may have some lingering side effects from his recent bout with COVID x2 including ongoing lethargy and fatigue. In addition, he notes waking alone within a possible pain related to an inguinal hernia. He did to see a surgeon locally next week. He notes on occasion with some blood in her stool we will also check a stool guaiac. He notes that arecent colonoscopy done in the last few years was negative I emphasized to him that if he does experience a viral syndrome once again we should check his platelet count since platelets often will drop in the situation. In addition, if he has any invasive procedure or surgery planned, we should check a baseline platelet count prior to the procedure and possibly notify blood bank of need for platelets moving forward. He voiced a clear understanding. #Hypertension Routine follow-up and healthcare maintenance since his pressure is elevated today Continue with routine exercise and weight control Plan No intervention for thrombocytopenia at this time Continue to monitor for any bleeding, bruising or petechiae Follow-up with Prasanna in 6 months for CBC to monitor platelets and then to see us in 9 months. Surgical appmt locally [facility] Dr Marilynn Hansen. I will forward Dr. Hansen my note. If, does need surgery, he could be at slight increased risk due to his thrombocytopenia. 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 I will also send my note to his new primary care physician, Dr. Ruperto Shultz I will be sending: Home with stool guaiac cards. Prasanna with f/u with PCP for BP control Consider checking H pylori in future Maikel Rebolledo MD mushroom packer Director - Blood and Marrow Transplant Program documented in this encounter Plan of Treatment Upcoming Encounters Date Type Specialty Care Team Description 09/06/2022 Appointment Hematology and Oncology 09/06/2022 Office Visit Hematology and Oncology Maikel Rebolledo MD [facility] HEMATOLOGY/[place] [address] Norma Garrido APRN [facility] HEMATOLOGY[place] [address] Marleen Reis MD [facility] HEMATOLOGY/[place] [address] Scheduled Orders Name Type Priority Associated Diagnoses Order S chedule CBC (with Diff) Lab STAT Idiopathic thrombocytopen ic Expected: purpura 08/30/2022 Stage 1 chronic kidney (Appr oximate), disease Expires: 10/25/2022 Thrombocytopenia Comprehensive metabolic Lab STAT Idiopathic thromb ocytopenic Expected: panel (non-fasting) purpura 08/30/2022 Stage 1 chronic kidney (Appr oximate), disease Expires: 10/25/2022 Thrombocytopenia documented as of this encounter Results (ABNORMAL) Comprehensive metabolic panel (non-fasting) (05/03/2022 9:06 AM EDT) athologist Signature Glucose Lvl 104 65 - 199 [facility] mg/dL [facility] Comment: Diabetes: >=200 mg/dL plus symp toms BUN 16 10 - 20 mg/dL [facility] Creatinine 1.13 0.80 - 1.50 mg/dL [facility] Sodium 136 135 - 145 mmol/L [facility] Potassium 3.7 3.5 - 5.0 mmol/L [facility] Comment: Please note: ??Patients with WBC >100,00 0 may have falsely elevated Potassium levels. ??For accurate Potassium quantif ication in these patients send serum separator tube (gold top) for subsequent determinations. ??Contact the Clinical Chemistry Laboratory if there are any qu estions. Chloride 101 98 - 107 mmol/L [facility] CO2 26 22 - 31 mmol/L [facility] Anion Gap 9 5 - 15 mmol/L [facility] Calcium 9.2 8.5 - 10.5 mg/dL [facility] Total Protein 7.1 6.1 - 8.0 g/dL [facility] Albumin 4.7 3.2 - 5.2 g/dL [facility] AST 49 (H) 0 - 39 unit/L [facility] ALT 51 0 - 55 unit/L [facility] Alk Phos 93 40 - 130 unit/L [facility] Total Bilirubin 0.5 0.2 - 1.3 mg/dL [facility] Estimated GFR 80 >=60 mL/min/1.73 m?? [facility] Comment: This patient's estimated GFR [...] / Volume Laterality Blood 05/03/2022 9:06 AM 2 9:23 EDT AM EDT Resulting Agency Comment Spec In Lab Norma Garrido APRN CHEMISTRY ORDERABLES Performing Organization Address City/State/[place] [address] documented in this encounter Visit Diagnoses Diagnosis Idiopathic thrombocytopenic purpura Immune thrombocytopenic purpura Stage 1 chronic kidney disease Thrombocytopenia Thrombocytopenia, unspecified documented in this encounter Care Teams Inspector Set Up And Lay Out Relationship Specialty Start Date End Date Ruperto Shultz APRN PCP - General Family Medicine 03/23/[address] [place] [address] documented as of this encounter
--- OUTSIDE RECORDS SUMMARY | 2022-08-02 12:58 | XMS_ITS | Encounter Summary ---
:1970 Author Organization [facility] [place] [address] Care Team Providers Name Role Phone Ruperto Shultz APRN Primary Care Provider Reason for Visit (Routine) - Pending Review Specialty Diagnoses / Procedures Referred By Contact Refer red To Contact Radiology Diagnoses Abdominal pain, unspecified abdominal location Reginald Hansen V, Procedures Request For 2nd Read CT Abdomen & Pelvis [address] [place] [address] Referral ID Status Reason Start Date Expiration Date Visits V isits Requested Authorized [id number] Pending 06/27/2022 06/27/2023 1 1 Review Encounter Details Date Type Department Care Team Description 06/27/2022 Ancillary Procedure Radiology Library at [place], Carmen martin, [facility] Reginald unspecified abdominal [facility] MD Elisabeth location [facility] [address] [facility] [address] [place], [place] [phone] Social History Tobacco Use Types Packs/Day Years [...] Visit Hematology and Oncology Maikel Rebolledo MD [facility] DR HEMATOLOGY/[place] [address] Norma Garrido APRN [facility] DR [place]EMATOLOG[place] [address] Marleen Reis MD [facility] [place]ATOLOGY/[place] [address] documented as of this encounter Procedures Procedure Name Priority Date/Time Associated Diagnosis Comme nts REQUEST FOR 2ND Routine 06/27/2022 4:51 PM Abdominal pain, Res ults for this READ CT ABDOMEN AND EDT unspecified procedur e are in PELVIS abdominal location the resul ts section. documented in this encounter Results Request For 2nd Read CT Abdomen & [...] resident's interpretation and agree with the findings, Kacei Nelson MD at 06/28/2022 11:43 AM Thank you for letting us participate in the care of this patient. ??If you are a health care provider and have any questi ons regarding this report, please contact the number below. ??For patients who have questions please contact the health animal care supervisor that requested your imaging first. ? Narrative 06/28/2022 11:43 AM EDT EXAMINATION: REQUEST FOR 2ND READ CT ABDOMEN AND PELVIS CLINICAL HISTORY: SPIGELIAN AND RLQ [place]; Sending Institution [facility]; Date of exam 20220626; I believe a reinterpretat ion of this exam may alter care of Patient. Yes COMPARISON: CT abdomen and pelvis 018. MRI pelvis 04/07/2020 TECHNIQUE: Axial sagittal and coronal im ages from an oral and IV contrast enhanced CT scan of the abdomen and pelv is dated 06/06/2022 are submitted from [facility]. FINDINGS: Lower chest: Normal. Liver: Liver [...] SPIGELIAN AND RLQ ZAIRE [place]; Sending Institution [facility]; Date of exam [id number]; I believe a reinterpretat ion of this exam may alter care of Patient. Yes COMPARISON: CT abdomen and pelvis 018. MRI pelvis 04/07/2020 TECHNIQUE: Axial sagittal and coronal im ages from an oral and IV contrast enhanced CT scan of the abdomen and pelv is dated 06/06/2022 are submitted from [facility]. FINDINGS: Lower chest: Normal. Liver: Liver [...] ho have questions please contact the health animal care supervisor that requested your imaging first. Reginald Barber MD IMG OUTSIDE INTERPRETATION ORDERABLES documented in this encounter Visit Diagnoses Diagnosis Abdominal pain, unspecified abdominal lo cation documented in this encounter Care Teams Mdm Sr Relationship Specialty Start Date End Date Ruperto Shultz APRN PCP - General Family Medicine 03/23/[address] [place] [address] documented as of this encounter
--- OUTSIDE RECORDS SUMMARY | 2022-08-02 12:58 | XMS_ITS | Encounter Summary ---
:1970 Author Organization [facility] [place] [address] Care Team Providers Name Role Phone Kurtis Kingsley DO Primary Care Provider Encounter Details Date Type Department Care Team Description 01/25/2022 Hospital Encounter Hematology and Idiopat hic thrombocytopenic purpura; Oncology at [facility] Stage 1 chronic kidney disea se; [facility] [place] [address] Social History Tobacco Use Types Packs/Day Years [...] Visit Hematology and Oncology Maikel Rebolledo MD [facility] DR HEMATOLOGY/[place] [address] Norma Garrido APRN [facility] [address] HEMATOLOGY[place] [address] Marleen Reis MD [facility] DR HEMATOLOGY/[place] [address] documented as of this encounter Procedures Procedure Name Priority Date/Time Associated Diagnosis Comme nts HEMOGRAM STAT 01/25/2022 9:12 Idiopathic Results for this AM EDT thrombocytopenic procedure a re in purpura the results Stage 1 chronic kidney secti on. disease Thrombocytopenia DIFFERENTIAL, STAT 01/25/2022 9:12 Idiopathic Results for this AUTOMATED AM EDT thrombocytopenic procedure a re in purpura the results Stage 1 chronic kidney secti on. disease Thrombocytopenia HC CBC,PLT & AUTO STAT 01/25/2022 9:12 Idiopathic DIFF AM EDT thrombocytopenic purpura Stage 1 chronic kidney disease Thrombocytopenia HC VENIPUNCTURE STAT 01/25/2022 9:12 Idiopathic Results f or this AM EDT thrombocytopenic procedure a re in purpura the results Stage 1 chronic kidney secti on. disease Thrombocytopenia documented in this encounter Results Differential, Automated (01/25/2022 9:12 AM EDT) P athologist Signature Neutrophils % 51.9 % [facility] Neutr Abs (ANC) 2.88 1.70 - [facility] 6.10 [facility] x10(3)/[facility] LABORATORY Lymphocytes % 34.4 % [facility] Lymphocytes Abs 1.9 0.9 - 3.2 [facility] x10(3)/[facility] LABORATORY Monocytes % 10.3 % [facility] Monocyte Abs 0.6 0.3 - 0.9 [facility] x10(3)/[facility] LABORATORY Eosinophils % 2.2 % [facility] Eosinophils Abs 0.1 0.0 - 0.4 [facility] x10(3)/[facility] LABORATORY Basophils % 0.5 % [facility] Basophils Abs 0.0 0.0 - 0.1 [facility] x10(3)/[facility] LABORATORY Immature Gran % 0.70 % [facility] Comment: Immature granulocytes(IG's)percentage an d absolute count will include metamyelocytes, myelocytes, and promyelo cytes. Blood smears from CBCs yielding IG's will be scanned manually for concor dance. If this scan disagrees with the automated IG or if promyelocytes are not ed, a manual differential will be performed. Cheli Gran Abs 0.04 0.00 - 0.04 x10(3)/[facility] Specimen Anatomical Collection Method Collection Time Receive d Time (Source) Location / / Volume Laterality Blood 01/25/2022 9:12 AM 9:37 EDT AM EDT Resulting Agency Comment Spec In Lab Maikel Rebolledo MD HEMATOLOGY ORDERABLES Performing Organization Address City/State/ZIP Code Phon e Number [place] [id number] (ABNORMAL) Hemogram (01/25/2022 9:12 AM EDT) Analysis Performed At Patho logist Time Signature WBC 5.6 4.0 - 9.5 [facility] x10(3)/[facility] LABORATORY RBC 5.60 (H) 4.58 - [facility] 5.54 [facility] x10(6)/[facility]ATORY Hemoglobin 16.2 13.7 [facility] 16.[facility] g/dL [facility] Hematocrit 46.8 40.5 - [facility] 48.5 % [facility] MCV 83.6 82.9 - [facility] 93.1 fL [facility] MCH 28.9 27.5 - [facility] 32.1 pg [facility] MCHC 34.6 32.0 - [facility] 35.7 g/dL [facility] Platelets 41 (L) 145 - 357 [facility] x10(3)/[facility]ATORY RDWSD 38.1 36.0 - [facility] 45.[address] [facility] LAB[facility]ATORY RDWCV 12.7 11.4 [facility] 13.8 % [facility] MPV 13.1 (H) 7.6 - 12.9 [facility] LABORATORY nRBC % Auto 0.0 % [facility] nRBC Abs Auto 0.000 0.000 - [facility] 0.000 [facility] x10(3)/[facility] LABORATORY Specimen Anatomical Collection Method Collection Time Receive d Time (Source) Location / / Volume Laterality Blood 01/25/2022 9:12 AM 9:37 EDT AM EDT Resulting Agency Comment Spec In Lab Maikel Rebolledo MD HEMATOLOGY ORDERABLES Performing Organization Address City/State/[place] [address] Comprehensive metabolic panel (non-fasting) (01/25/2022 9:12 AM EDT) P athologist Signature Glucose Lvl 77 65 - 199 [facility] mg/dL [facility] Comment: Diabetes: >=200 mg/dL plus symp toms BUN 18 10 - 20 mg/dL [facility] Creatinine 1.32 0.80 - 1.50 mg/dL [facility] Sodium 139 135 - 145 mmol/L [facility] Potassium 4.1 3.5 - 5.0 mmol/L [facility] Comment: Please note: ??Patients with WBC >100,00 0 may have falsely elevated Potassium levels. ??For accurate Potassium quantif ication in these patients send serum separator tube (gold top) for subsequent determinations. ??Contact the Clinical Chemistry Laboratory if there are any qu estions. Chloride 103 98 - 107 mmol/L [facility] CO2 27 22 - 31 mmol/L [facility] Anion Gap 9 5 - 15 mmol/L [facility] Calcium 9.3 8.5 - 10.5 mg/dL [facility] Total Protein 7.3 6.1 - 8.0 g/dL [facility] Albumin 4.8 3.2 - 5.2 g/dL [facility] AST 21 0 - 39 unit/L [facility] ALT 41 0 - 55 unit/L [facility] Alk Phos 86 40 - 130 unit/L [facility] Total Bilirubin 0.4 0.2 - 1.3 mg/dL [facility] Estimated GFR 63 >=60 mL/min/1.73 m?? [facility] Comment: This patient? s estimated glomerular filtration rate (eGFR) is between 63 mL/min/1.73 m2 (patients with less muscl e mass per kg body weight) and 73 mL/min/1.73 m2 (patients with more muscl e [...] (Source) Location / / Volume Laterality Blood 01/25/2022 9:12 AM 9:37 EDT AM EDT Resulting Agency Comment Spec In Lab Maikel Rebolledo MD CHEMISTRY ORDERABLES Performing Organization Address City/State/[place] [address] documented in this encounter Visit Diagnoses Diagnosis Idiopathic thrombocytopenic purpura Immune thrombocytopenic purpura Stage 1 chronic kidney disease Thrombocytopenia Thrombocytopenia, unspecified documented in this encounter Care Teams Installer Relationship Specialty Start Date End Date Kurtis Kingsley DO PCP - General 09/27/10 03/22/[address] [place] [address] documented as of this encounter
--- OUTSIDE RECORDS SUMMARY | 2022-08-02 12:58 | XMS_ITS | Encounter Summary ---
:1970 Author Organization [facility] [place] [address] Care Team Providers Name Role Phone Ruperto Shultz APRN Primary Care Provider Reason for Visit (Routine) - Pending Review Specialty Diagnoses / Procedures Referred By Contact Refer red To Contact Radiology Diagnoses Hemangioma, unspecified site Reginald Hansen V, Procedures Request for 2nd read MR Abdomen [address] [place] [address] Referral ID Status Reason Start Date Expiration Date Visits V isits Requested Authorized [id number] Pending 07/11/2022 07/11/2023 1 1 Review Encounter Details Date Type Department Care Team Description 07/11/2022 Ancillary Procedure Radiology Library at [facility] [address] [facility] [address] [place], [place] [phone] Social History Tobacco Use Types Packs/Day [...] Visit Hematology and Oncology Maikel Rebolledo MD [facility] [address] HEMATOLOGY/[place] [address] Norma Garrido APRN [facility] [address] HEMATOLOGY-[place] [address] Marleen Reis MD [facility] DR HEMATOLOGY/[place] [address] documented as of this encounter Procedures Procedure Name Priority Date/Time Associated Diagnosis Comme nts REQUEST FOR 2ND Routine 07/11/2022 3:36 PM Hemangioma, Result s for this READ MR ABDOMEN EDT unspecified site procedur e are in the results section. documented in this encounter Results Request for 2nd read MR Abdomen [...] who have questions please contact the health director of patient care that requested your imaging first. ? Narrative 07/12/2022 7:25 AM EDT EXAMINATION: * ??REQUEST FOR 2ND READ MR ABDOMEN * ??MRI OF THE ABDOMEN WITHOUT AND WITH INTRAVENOUS CONTRAST. CLINICAL HISTORY: Hepatic lesion of uncl ear etiology. ??Follow-up. ??Concern for malignancy. ??Request for second interpr etation of outside imaging study * ??Sending institution: [facility]. * ??DATE OF EXAM: July [...] and pelvis dated 06/06/2022 and 01/01/2018 FINDINGS: Clinical Laboratory Manager Images: Noncontributory. Lower chest: Visualized structures withi [...] Normal. Procedure Note Baldemar Melton, DO - 07/12/2022Formatti ng of this note might be different from the original. EXAMINATION: * REQUEST FOR 2ND READ MR ABDOMEN * MRI OF THE ABDOMEN WITHOUT AND WITH IN TRAVENOUS CONTRAST. CLINICAL HISTORY: Hepatic lesion of uncl ear etiology. Follow-up. Concern for malignancy. Request for second interpret ation of outside imaging study * Sending institution: [facility]. * DATE OF EXAM: July 06, [...] and pelvis dated 06/06/2022 and 01/01/2018 FINDINGS: Clinical Laboratory Manager Images: Noncontributory. Lower chest: Visualized structures withi [...] ho have questions please contact the health director of patient care that requested your imaging first. Reginald Barber MD IMGraciela OUTSIDE INTERPRETATION ORDERABLES documented in this encounter Visit Diagnoses Diagnosis Hemangioma, unspecified site documented in this encounter Care Teams Adjunct Faculty Mathematics Department Relationship Specialty Start Date End Date Ruperto Shultz, LENS COATING TECHNICIAN PCP - General Family Medicine 03/23/[address] [place] [address] documented as of this encounter
--- OUTSIDE RECORDS SUMMARY | 2022-08-02 12:58 | XMS_ITS | Encounter Summary ---
:1970 Author Organization [facility] Address [address] [place] [address] Care Team Providers Name Role Phone Kurtis Kingsley DO Primary Care Provider Encounter Details Date Type Department Care Team Description 06/11/2020 Lab Requisition [facility] Outr Resulting Lab, Pathology & Laboratory Provider [facility] [address] [place] [address] Social History Tobacco Use Types Packs/Day Years Used Date Never Assessed Sex Assigned at Date Recorded Not on file documented as of this encounter Plan of Treatment Not on filedocumented as of this encounter Procedures Procedure Name Priority Date/Time Associated Comments Diagnosis DO NOT ORDER Today 06/11/2020 9:58 EDT Results for this STANDALONE - BROAD procedure are in COVID TEST the results section. COVID-19 TESTING Routine 06/11/2020 9:58 EDT Resu lts for this procedure are i n the results section. documented in this encounter Results DO NOT ORDER STANDALONE - BROAD COVID TEST (06/11/2020 9:58 EDT) COVID-19 rt-PCR NEGATIVE Negative [facility] Result Comment: LABORATORY 2019-novel Coronavirus (2019 -nCoV) not detected by the qRT-PCR assay. Consider testing for other respiratory viruses or re-collecting for 2019-nCoV testing. Note: Optimum timing for peak viral levels du ring infections caused by 20 -nCoV have not been determined. Collection of multiple specimens from the same patient may be necessary to detect the virus. Limitations Positive results are indicat george of active infection with SARS-CoV-2 but do not rule out bacterial infection or co-infection with other viruses. The agent detected may not be the definite cause of diseas e. In addition, detection of viral RNA may not indicate the presence of infectious virus or that SARS-CoV-2 is the causative agent for clinical symptoms. Negative results do not prec lude SARS-CoV-2 infection and should not be used as the sole basis for patient management decisions. Negative results must be combined with clinical observations, patient his tory, and epidemiological in formation. False negative results may also occur if amplification inhibitors are present in the specimen or if inadequate numbers of organisms are present in the specimen. Op timum specimen types and blaise ing for peak viral levels during infections caused by SARS-CoV-2 have not been fully determined. Collection of multiple specimens (types and time points) from the same patient may be necessary to detect the virus. The test was validated for u se with upper respiratory specimens obtained via nasopharyngeal or oropharyngeal swabs in VTM, UTM, M4, M5, M6, saline, and MTM media. The performance of this test has not be en established for other spe cimens. Specimens collected using other FDA recommended Specimen Collection Materials listed in the FDA COVID-19 Diagnostic [employer] communication (January 29, 2020) are pr ocessed with the caveat that they were not all validated for use with this test and the result must be interpreted in this context. Furthermore, a false negative results may occur if a specimen is improperly collected, transported or handled. If the virus mutates in the RT-PCR target region, SARS-CoV-2 may not be detected or may be detected less predictably. Inhibitors or other types of interference may produce a false negative result. An interference study evaluating the effect of common cold medications was not performed. This test is not FDA-cleared but its performance characteristics were established by our CLIA-certified, CAP-accredited, high complexity laboratory in accordance with CLIA regulations, College of [employer] an Pathologists (CAP) guidel dora (Jan 22, 2020), and FDA guidance (Jan 03, 2020). This test is only for use un debra the Food and Drug Administration's Emergency Use Authorization. Specimen Swab - Entire nasopharynx (body structur e) Performing Organization Address City/State/ZIP Code Phon e Number [facility] [place] COVID-19 TESTING (06/11/2020 9:58 EDT) COVID-19 rt-PCR NEGATIVE Negative [facility] Result Comment: LABORATORY 2019-novel Coronavirus (2019 -nCoV) not detected by the qRT-PCR assay. Consider testing for other respiratory viruses or re-collecting for 2019-nCoV testing. Note: Optimum timing for peak viral levels du ring infections caused by 20 19-nCoV have not been determined. Collection of multiple specimens from the same patient may be necessary to detect the virus. Limitations Positive results are indicat george of active infection with SARS-CoV-2 but do not rule out bacterial infection or co-infection with other viruses. The agent detected may not be the definite cause of diseas e. In addition, detection of viral RNA may not indicate the presence of infectious virus or that SARS-CoV-2 is the causative agent for clinical symptoms. Negative results do not prec lude SARS-CoV-2 infection and should not be used as the sole basis for patient management decisions. Negative results must be combined with clinical observations, patient his tory, and epidemiological in formation. False negative results may also occur if amplification inhibitors are present in the specimen or if inadequate numbers of organisms are present in the specimen. Op timum specimen types and blaise ing for peak viral levels during infections caused by SARS-CoV-2 have not been fully determined. Collection of multiple specimens (types and time points) from the same patient may be necessary to detect the virus. The test was validated for u se with upper respiratory specimens obtained via nasopharyngeal or oropharyngeal swabs in VTM, UTM, M4, M5, M6, saline, and MTM media. The performance of this test has not be en established for other spe cimens. Specimens collected using other FDA recommended Specimen Collection Materials listed in the FDA COVID-19 [employer] communication (January 29, 2020) are pr ocessed with the caveat that they were not all validated for use with this test and the result must be interpreted in this context. Furthermore, a false negative results may occur if a specimen is improperly collected, transported or handled. If the virus mutates in the RT-PCR target region, SARS-CoV-2 may not be detected or may be detected less predictably. Inhibitors or other types of interference may produce a false negative result. An interference study evaluating the effect of common cold medications was not performed. This test is not FDA-cleared but its performance characteristics were established by our CLIA-certified, CAP-accredited, high complexity laboratory in accordance with CLIA regulations, College of [employer] an Pathologists (CAP) guidel dora (Jan 22, 2020), and FDA guidance (Jan 03, 2020). This test is only for use un debra the Food and Drug Administration's Emergency Use Authorization. Performing Lab [facility] LABORATORY SERVICES Specimen Swab Performing Organization Address City/State/ZIP Code Phon e Number [facility] [address] [place] [address] SERVICES [facility] [place], [place] documented in this encounter Visit Diagnoses Not on filedocumented in this encounter Additional Health Concerns Infection Onset Date Last Indicated Resolved Time COVID-19 12/30/2020 12/30/2020 01/29/2021 22:15 EDT documented as of this encounter Care Teams Thermocouple Tester Relationship Specialty Start Date End Date Kurtis Kingsley DO PCP - General 05/21/15 [address] [place], [place] [address] documented as of this encounter
--- OUTSIDE RECORDS SUMMARY | 2022-08-02 12:58 | XMS_ITS | Encounter Summary ---
:1970 Author Organization [facility] [address] Care Team Providers Name Role Phone Lexii Rupertovenu Packer APRN Primary Care Provider Encounter Details Date Type Department Care Team Description 07/06/2022 Ancillary Procedure Radiology Library at [facility] Reginald Barber MD [address] [address] [place] [address] [phone] Social History Tobacco Use Types Packs/Day Years [...] Visit Hematology and Oncology Maikel Rebolledo MD [facility] [address] HEMATOLOGY/[place] [address] Norma Garrido APRN [facility] [address] HEMATOLOGY-[place] [address] Marleen Reis MD [facility] DR HEMATOLOGY/[place] [address] documented as of this encounter Procedures Procedure Name Priority Date/Time Associated Diagnosis Comme nts FILM LIBRARY Routine 07/06/2022 12:00 AM Results for this STORAGE ONLY MR EDT procedure ar e in ABDOMEN the results section. documented in this encounter Results Film Library- Storage Only MR Abdomen (07/06/2022 12:00 AM EDT) Specimen (Source) Anatomical Location Collection Method / Collectio n Time Received Time / Laterality Volume Narrative RAD - 07/11/2022 3:32 PM EDT This exam is auto-finalizing. It's purpo se is for storage only. Reginald Barber MD IMG FILM LIBRARY ORDERABLES Performing Organization Address City/State/ZIP Code Phon e Number [place], [place] documented in this encounter Visit Diagnoses Not on filedocumented in this encounter Care Teams Balance Assembler Relationship Specialty Start Date End Date Ruperto Shultz APRN PCP - General Family Medicine 03/23/[address] [place] [address] documented as of this encounter
--- OUTSIDE RECORDS SUMMARY | 2022-08-02 12:58 | XMS_ITS | Encounter Summary ---
:1970 Author Organization [facility] Address [address] [place] [address] Care Team Providers Name Role Phone Unknown, Provider Primary Care Provider Encounter Details Date Type Department Care Team Description 05/14/2015 Hospital Encounter [facility] - S Unknown, Pro Jocelyne fernandez MD [address] [facility] [phone] [place] [address] (Work) [phone] Social History Tobacco Use Types Packs/Day Years Used Date Never Assessed Sex Assigned at Date Recorded Not on file documented as of this encounter Discharge Disposition Disposition Code Departure Means Destination Home or Self Long-Term documented in this encounter Plan of Treatment Not on filedocumented as of this encounter Visit Diagnoses Not on filedocumented in this encounter Care Teams Foam Rubber Fabricator Relationship Specialty Start Date End Date Unknown, Provider, PCP - General 02/29/12 05/20/15 documented as of this encounter
--- OUTSIDE RECORDS SUMMARY | 2022-08-02 12:58 | XMS_ITS | Encounter Summary ---
:1970 Author Organization [facility] Address [address] [place] [address] Care Team Providers Name Role Phone Kurtis Kingsley DO Primary Care Provider Encounter Details Date Type Department Care Team Description 12/31/2020 Lab Requisition [facility] Outr Resulting Lab, Pathology & Laboratory Provider [facility] [address] [place], [place] [address] Social History Tobacco Use Types Packs/Day Years Used Date Never Assessed Sex Assigned at Date Recorded Not on file documented as of this encounter Plan of Treatment Not on filedocumented as of this encounter Procedures Procedure Name Priority Date/Time Associated Diagnosis Comme nts COVID-19 TEST [facility] Today 12/30/2020 14:00 LAB PCR EST COVID-19 TESTING Routine 12/30/2020 14:00 Results for this EST procedure are i n the results section. documented in this encounter Results COVID-19 TEST [facility] LAB PCR (12/30/2020 14:00 EST) Specimen Swab - Entire nasopharynx (body structur e) Performing Organization Address City/State/ZIP Code Phon e Number [facility] [address] [place] [address] SERVICES (ABNORMAL) COVID-19 TESTING (12/30/2020 14:00 EST) COVID-19 rt-PCR Positive (AA) Negative [facility] Result Comment: CENTER LABORATORY This test has not been FDA c leared or approved. This test has been authorized by FDA under an EUA for use by authorized laboratories. This test has been authorized only for detection of nucleic acid fro SERVICES m 2019-nCoV, not for any oth er viruses or pathogens. This test is only authorized for the duration of the declaration that circumstances exist justifying the authorization of emergency use of in vitro d iagnostic tests for detectio n and/or diagnosis of 2019-nCoV under section 564(b)(1) of Act, 21 U.S.C ?? 360bbb-3(b) (1), unless the authorization is terminated or revoked sooner. This test was developed and its performance characteristics determined by [facility]. It has not been cleared or approved by the US Food and Drug Administration. FDA does not require this test to go through premarket FDA review. This t est is used for clinical purposes. It should not be regarded as investigational or for research. This laboratory is certified under the Clinical Laboratory Improvement Amendm ents (CLIA) as qualified to perform high complexity clinical laboratory testing. This test is based on the CD C COVID-19 Emergency Use Authorization (EUA) assay, with minor modification as defined by the FDA Performed on the Simmr Pro RT-PCR System. Performing Lab [facility] Lab [facility] SERVICES Specimen Swab Performing Organization Address City/State/ZIP Code Phon e Number [facility] [address] [place] [address] SERVICES documented in this encounter Visit Diagnoses Not on filedocumented in this encounter Additional Health Concerns Infection Onset Date Last Indicated Resolved Time COVID-19 12/30/2020 12/30/2020 01/29/2021 22:15 EDT documented as of this encounter Care Teams Plate Corrector Relationship Specialty Start Date End Date Kurtis Kingsley DO PCP - General 05/21/15 [address] [place], [place] [id number] documented as of this encounter
--- OUTSIDE RECORDS SUMMARY | 2022-08-02 12:58 | XMS_ITS | Encounter Summary ---
:1970 Author Organization [facility] Address [address] [place] [address] Care Team Providers Name Role Phone Kurtis Kingsley DO Primary Care Provider Encounter Details Date Type Department Care Team Description 02/27/2022 Lab Requisition [facility] Outr Resulting Lab, Pathology & Laboratory Provider [facility] [address] [place], [place] [address] Social History Tobacco Use Types Packs/Day Years Used Date Never Assessed Sex Assigned at Date Recorded Not on file documented as of this encounter Plan of Treatment Not on filedocumented as of this encounter Procedures Procedure Name Priority Date/Time Associated Comments Diagnosis PSA TOTAL, Routine 02/27/2022 10:53 Results for this DIAGNOSTIC EDT procedure are i n the results section. documented in this encounter Results PSA TOTAL, DIAGNOSTIC (02/27/2022 10:53 EDT) Pathologist Sig nature PSA 0.6 <=2.5 ng/mL [facility] Specimen Blood - Venous blood (substance) Narrative [facility] - 02/27/2022 21:52 EDT NOTE: Serum PSA concentration should not be in terpreted as absolute evidence for the presence or absence of malignant disease. Assayed on Siemens ADVIA Centaur XPT usi ng chemiluminescent technology.??Values obtained by using different assay methods cannot be used interchangeably. Performing Organization Address City/State/ZIP Code Phon e Number [facility] [address] [place] [address] SERVICES documented in this encounter Visit Diagnoses Not on filedocumented in this encounter Care Teams Life Enrichment Specialist Relationship Specialty Start Date End Date Kurtis Kingsley DO PCP - General 05/21/15 [address] [place] [address] documented as of this encounter
--- OUTSIDE RECORDS SUMMARY | 2022-08-02 12:58 | XMS_ITS | Encounter Summary ---
:1970 Author Organization [place] [address] Care Team Providers Name Role Phone Kurtis Kingsley DO Primary Care Provider Encounter Details Date Type Department Care Team Description 08/31/2021 Ancillary Procedure Radiology Library at Kurtis Quiroz DO [facility] [id number] [place] [address] (Wo rk) [phone] Social History Tobacco Use Types Packs/Day Years [...] Visit Hematology and Oncology Maikel Rebolledo MD [facility] DR HEMATOLOGY/[place] [address] Norma Garrido APRN [facility] DR HEMATOLOGY-[place] [address] Marleen Reis MD [facility] DR HEMATOLOGY/[place] [address] documented as of this encounter Procedures Procedure Name Priority Date/Time Associated Diagnosis Comme nts FILM LIBRARY Routine 08/31/2021 4:31 PM Results f or this STORAGE ONLY DX EDT procedure ar e in SPINE the results section. documented in this encounter Results Film Library- Storage Only DX Spine (08/31/2021 4:31 PM EDT) Specimen (Source) Anatomical Location Collection Method / Collectio n Time Received Time / Laterality Volume Narrative RAD - 08/31/2021 4:31 PM EDT This exam is auto-finalizing. It's purpo se is for storage only. Kurtis Kingsley DO Graciela FILM LIBRARY ORDERABLES Performing Organization Address City/State/ZIP Code Phon e Number [place], [place] documented in this encounter Visit Diagnoses Not on filedocumented in this encounter Care Teams Bung Driver Relationship Specialty Start Date End Date Kurtis Kingsley DO PCP - General 09/27/10 03/22/[address] [place] [address] documented as of this encounter
--- OUTSIDE RECORDS SUMMARY | 2022-08-02 12:58 | XMS_ITS | Clinical Summary ---
:1970 Author Organization [facility] Address [address] [place] [address] Care Team Providers Name Role Phone Kurtis Kingsley DO Primary Care Provider Social History Tobacco Use Types Packs/Day Years Used Date Never Assessed Sex Assigned at Date Recorded Not on file Plan of Treatment Health Maintenance Due Date Last Done Comments Hepatitis C Screen 1970 COVID-19 Vaccine (#1) 01/30/1973 Care Teams Grading Machine Operator Relationship Specialty Start Date End Date Kurtis Kingsley DO PCP - General 05/21/15 [address] [place], [place] [address]
--- OUTSIDE RECORDS SUMMARY | 2022-08-02 12:59 | XMS_ITS | Encounter Summary ---
:1970 Author Organization [facility] [place] [address] Care Team Providers Name Role Phone Kurtis Kingsley Primary Care Provider Reason for Visit Reason Comments Follow-up Encounter Details Date Type Department Care Team Description 03/05/2019 Office Visit Hematology and Maikel Rebolledo MD [facility] DR HEMATOLOGY/[place] [address] Thrombocytopenia; [facility]cology at [facility] Norma Alejandra APRN [facility] DR [place]EMATOLOGY[place] [address] Stage 1 [place] [address] Social History Tobacco Use Types Packs/Day Years Used Date Never Smoker Smokeless Tobacco: Never Used Alcohol Use Standard Drinks/Week Comments Yes 0 (1 standard drink = 0.6 oz pure alcoho l) Sex Assigned at Date Recorded Not on file documented as of this encounter Last Filed Vital Signs Vital Sign Reading Time Taken Comments Blood Pressure 140/86 03/05/2019 4:29 PM EDT Pulse 90 03/05/2019 4:29 PM EDT Temperature 36.4 ??C (97.5 ??F) 03/05/2019 4:29 PM EDT Respiratory Rate 19 03/05/2019 4:29 PM EDT Oxygen Saturation 98% 03/05/2019 4:29 PM EDT Inhaled Oxygen Concentration - - Weight 97.4 kg (214 lb 12.8 oz) 03/05/2019 4:29 PM EDT Height 176.5 cm (5' 9.5) 03/05/2019 4:29 PM EDT Body Mass Index 31.27 03/05/2019 4:29 PM EDT documented in this encounter Progress Notes Norma Alejandra, SONG LYRICIST - 03/05/2019 4:30 PM EDT Images from the original note were not included. Attending Physician: Referring physician: Kurtis Durbin Reason for f/up: Thrombocytopenia HPI: 47 y/o male with Hx of alloimmune thrombocytopenia at presenting for evaluation of thrombocytopenia. ?? Presented to local ED with a big [...] surgeries were uncomplicated with no excessive bleeding. 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 Back pain continues to be a real issue for Prasanna. Despite numerous appointments, he has not been able to get any real relief. He is trying tolose some weight and hopes that it will make a difference. Call and notes he does have some nosebleeds when he blows his nose but no spontaneous bleeding. No petechiae or excessive bruising. Remainder of review of systems is negative Review of systems: Constitutional: as above Eyes: negative Respiratory: Negative. Cardiovascular: Negative. Gastrointestinal: GERD ---> chronic. Genitourinary: Negative. Skin: Negative. Neurological: as above Hematological: as above Psychiatric/Behavioral: Negative. Musculoskeletal:as above Past Medical History: - Lipomas - Restless leg syndrome - lasik surgery for vision correction - Knee surgery for torn meniscus and back surgeries : in 2012, 12/2014; - Back surgery Allergies: Pollen, micronized Medications: Current Outpatient Medications on File Prior to Visit Medication Sig Dispense Refill ??? PROAIR HFA 90 mcg/actuation HFA Aerosol Inhaler INHALE TWO PUFFS BY MOUTH FOUR TIMES A DAY 1 ??? pramipexole (MIRAPEX) 1 mg Tablet 0.5 mg. Indications: pt states he is taking .5 mg ??? FEXOFENADINE HCL (DAVID ORAL) (Patient not taking: No sig reported) No current facility-administered medications on file prior to visit. 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 Family History: - Mother: was tested negative for PLT antigen 1; never had low plt count; - Father: htn, dlp - Siblings: brother and sister: both healthy; His sister also had low plt count at and was transfused; no issues now. Brother is a warehouse associate at [employer]. 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 Physical Exam: BP 140/86 (Patient Position: Sitting) Pulse 90 Temp 36.4 ??C (97.5 ??F) (Temporal) Resp 19 Ht 176.5 cm (5' 9.5) Wt 97.4 kg (214 lb 12.8 oz) SpO2 98% BMI 31.27 kg/m?? GENERAL: Patient appears well and is in no acute distress. HEENT: NCAT . EOMI, PERRLA; anicteric, No conjunctival injection Sinuses non- tender. Oral pharynx isclear without erythema or exudate. NECK: Supple and without adenopathy or thyroid enlargement. CARDIAC: Regular rate and rhythm without S3, S4 or murmurs. LUNGS: Clear to auscultation bilaterally. No rales, rhonchi or wheezing. ABDOMEN: Mild enlargement of the spleen EXTREMITIES: No edema, cyanosis or clubbing. SKIN: No rashes or lesions. No bruises or petechiae. LYMPHADENOPATHY: No abnormal lymphadenopathy. MUSCULOSKELETAL: Lower right back discomfort with palpation NEUROLOGICAL: Alert and oriented to person, place and time. Labs: Recent Results (from the past 24 hour(s)) Comprehensive metabolic panel (non-fasting) Result Value Ref Range Glucose Lvl 98 65 - 199 mg/dL BUN 17 10 - 20 mg/dL Creatinine 1.08 0.80 - 1.50 mg/dL Sodium 139 135 - 145 mmol/L Potassium 3.9 3.5 - 5.0 mmol/L Chloride 103 98 - 107 mmol/L CO2 24 22 - 31 mmol/L Anion Gap 12 5 - 15 mmol/L Calcium 9.3 8.5 - 10.5 mg/dL Total Protein 7.5 6.1 - 8.0 gm/dL Albumin 4.4 3.2 - 5.2 gm/dL AST 19 0 - 39 unit/L Alk Phos 81 40 - 120 unit/L Total Bilirubin 0.4 0.2 - 1.3 mg/dL eGFR 82 >=60 mL/min/1.73 m?? eGFR 95 >=60 mL/min/1.73 m?? Hemogram Result Value Ref Range WBC 5.1 4.0 - 9.5 x10(3)/mcL RBC 5.48 4.58 - 5.54 x10(6)/mcL Hemoglobin 16.0 13.7 - 16.5 gm/dL Hematocrit 45.6 40.5 - 48.5 % MCV 83.2 82.9 - 93.1 fL MCH 29.2 27.5 - 32.1 pg MCHC 35.1 32.0 - 35.7 gm/dL Platelets 81 (L) 145 - 357 x10(3)/mcL RDWSD 37.6 36.0 - 45.0 fL RDWCV 12.4 11.4 - 13.8 % MPV 11.2 7.6 - 12.9 fL nRBC % Auto 0.0 % nRBC Abs Auto 0.000 0.000 - 0.000 x10(3)/mcL Differential, Automated Result Value Ref Range Neutrophils % 46.4 % Neutr Abs (ANC) 2.38 1.70 - 6.10 x10(3)/mcL Lymphocytes % 40.9 % Lymphocytes Abs 2.1 0.9 - 3.2 x10(3)/mcL Monocytes % 9.6 % Monocyte Abs 0.5 0.3 - 0.9 x10(3)/mcL Eosinophils % 1.9 % Eosinophils Abs 0.1 0.0 - 0.4 x10(3)/mcL Basophils % 0.8 % Basophils Abs 0.0 0.0 - 0.1 x10(3)/mcL Immature Gran % 0.40 % Cheli Gran Abs 0.02 0.00 - 0.04 x10(3)/mcL Radiology/Studies: None to review spleen. It is 15.7 cm from [facility] CT scan Assessment/Plan: 48 y/o M with presenting for evaluation of thrombocytopenia. His work up did not reveal any causative factor. Platelets remain stable. Prasanna has had knee and back surgery with low platelets without anyissues with bleeding. #. Thrombocytopenia -Platelet count stable -No spontaneous bleeding, excessive bruising or petechiae -Recommended saline nasal spray -No indication for therapy at this time. -Routine health maintenance with Dr. Kingsley -Recommended a return to neurosurgery for further discussion of back pain -Prasanna will call in the interim with any clinical concerns including bleeding, bruising, petechiae -. Follow-up in spine center for chronic back pain NORMA ALEJANDRA APRN Hematology and Oncology ------- Staff Addendum I have personally seen and evaluated the patient today with Melody Alejandra MEDICAL SERVICES ASSISTANT. I also reviewed pertinentlabs and radiographs. I reviewed plans with the patient with details of the palns outlined below. The patient's hematologic history has been stable. His platelet counts have been stable. Of note, patient has a mildly enlarged spleen which is interesting to me since this should be actually small he has a history of autoimmune thrombocytopenia. This would make me think that there might be a different etiology rather than an autoimmune process despite that, his platelet counts have been stable. I reviewed all the above with the patient and answered all questions. Saurabh Rebolledo MD Blood and Mar[facility] Transplant Service documented in this encounter Plan of Treatment Upcoming Encounters Date Type Specialty Care Team Description 09/06/2022 Appointment Hematology and Oncology 09/06/2022 Office Visit Hematology and Oncology Maikel Rebolledo MD [facility] HEMATOLOGY/[place] [address] Norma Alejandra APRN [facility] [place]ATOLOG[place] [address] Marleen Reis MD [facility] DR HEMATOLOGY/[place] [address] documented as of this encounter Procedures Procedure Name Priority Date/Time Associated Diagnosis Comme nts HEMOGRAM STAT 03/05/2019 3:39 Thrombocytopenia Results for this PM EDT procedure are i n the results section. DIFFERENTIAL, STAT 03/05/2019 3:39 Thrombocytopenia Results for this AUTOMATED PM EDT procedure are i n the results section. CBC (WITH DIFF) STAT 03/05/2019 3:39 Thrombocytopenia PM EDT COMPREHENSIVE Routine 03/05/2019 3:39 Thrombocytopenia Results for this METABOLIC PANEL PM EDT Stage 1 chronic kidney pr ocedure are in (NON-FASTING) disease the results section. documented in this encounter Results Comprehensive metabolic panel (non-fasting) (10/08/2019 3:10 PM EST) athologist Signature Glucose Lvl 118 65 - 199 [facility] mg/dL [facility] Comment: Diabetes: >=200 mg/dL plus symp toms BUN 16 10 - 20 mg/dL [facility] Creatinine 1.17 0.80 - 1.50 mg/dL [facility] Sodium 139 135 - 145 mmol/L [facility] Potassium 4.1 3.5 - 5.0 mmol/L [facility] Comment: Please note: ??Patients with WBC >100,00 0 may have falsely elevated Potassium levels. ??For accurate Potassium quantif ication in these patients send serum separator tube (gold top) for subsequent determinations. ??Contact the Clinical Chemistry Laboratory if there are any qu estions. Chloride 102 98 - 107 mmol/L [facility] CO2 25 22 - 31 mmol/L [facility] Anion Gap 12 5 - 15 mmol/L [facility] Calcium 9.5 8.5 - 10.5 mg/dL [facility] Total Protein 7.6 6.1 - 8.0 gm/dL [facility] Albumin 4.6 3.2 - 5.2 gm/dL [facility] AST 23 0 - 39 unit/L [facility] ALT 36 0 - 55 unit/L [facility] Alk Phos 75 40 - 130 unit/L [facility] Total Bilirubin 0.5 0.2 - 1.3 mg/dL [facility] Estimated GFR 74 >=60 mL/min/1.73 m?? [facility] Comment: The eGFR was calculated using the CKD-EP I equation. As with all creatinine based estimates of kidney function, eGFR values calculated with the CKD-EPI equation are not accurate in patients wi th acute kidney failure, extremes of body mass or the acutely ill. [email or web address] [email or web address] eGFR 86 >=60 mL/min/1.73 m?? [facility] Comment: The eGFR was calculated using the CKD-EP I equation. As with all creatinine based estimates of kidney function, eGFR values calculated with the CKD-EPI equation are not accurate in patients wi th acute kidney failure, extremes of body mass or the acutely ill. [email or web address] Specimen Anatomical Collection Method Collection Time Receive d Time (Source) Location / / Volume Laterality Blood specimen 10/08/2019 3:10 PM 019 3:17 (specimen) EST PM EST Resulting Agency Comment Spec In Lab Maikel Rebolledo MD CHEMISTRY ORDERABLES Performing Organization Address City/State/[place] [address] Differential, Automated (03/05/2019 3:39 PM EDT) P athologist Signature Neutrophils % 46.4 % [facility] Neutr Abs (ANC) 2.38 1.70 - [facility] 6.10 [facility] x10(3)/[facility] LABORATORY Lymphocytes % 40.9 % [facility] Lymphocytes Abs 2.1 0.9 - 3.2 [facility] x10(3)/[facility] LABORATORY Monocytes % 9.6 % [facility] Monocyte Abs 0.5 0.3 - 0.9 [facility] x10(3)/[facility] LABORATORY Eosinophils % 1.9 % [facility] Eosinophils Abs 0.1 0.0 - 0.4 [facility] x10(3)/[facility] LABORATORY Basophils % 0.8 % [facility] Basophils Abs 0.0 0.0 - 0.1 [facility] x10(3)/[facility] LABORATORY Immature Gran % 0.40 % [facility] Comment: Immature granulocytes(IG's)percentage an d absolute count will include metamyelocytes, myelocytes, and promyelo cytes. Blood smears from CBCs yielding IG's will be scanned manually for concor dance. If this scan disagrees with the automated IG or if promyelocytes are not ed, a manual differential will be performed. Cheli Gran Abs 0.02 0.00 - 0.04 x10(3)/[facility] MAR Y [facility] Specimen Anatomical Collection Method Collection Time Receive d Time (Source) Location / / Volume Laterality Blood specimen 03/05/2019 3:39 PM 019 3:42 (specimen) EDT PM EDT Resulting Agency Comment Spec In Lab Norma Alejandra APRN HEMATOLOGY ORDERABLES Performing Organization Address City/State/[place] [address] (ABNORMAL) Hemogram (03/05/2019 3:39 PM EDT) P athologist Signature WBC 5.1 4.0 - 9.5 [facility] x10(3)/[facility] LABORATORY RBC 5.48 4.58 - [facility] 5.54 [facility] x10(6)/[facility] LABORATORY Hemoglobin 16.0 13.7 - [facility] 16.5 gm/dL [facility] Hematocrit 45.6 40.5 - [facility] 48.5 % [facility] MCV 83.2 82.9 - [facility] 93.1 fL [facility] MCH 29.2 27.5 - [facility] 32.1 pg [facility] MCHC 35.1 32.0 - [facility] 35.7 gm/dL [facility] Platelets 81 (L) 145 - 357 [facility] x10(3)/[facility] LABORATORY RDWSD 37.6 36.0 - [facility] 45.0 [facility] LABORATORY RDWCV 12.4 11.4 - [facility] 13.8 % [facility] MPV 11.2 7.6 - 12.9 [facility] LABORATORY nRBC % Auto 0.0 % [facility] nRBC Abs Auto 0.000 0.000 - [facility] 0.000 [facility] x10(3)/[facility] LAB[facility]ORY Specimen Anatomical Collection Method Collection Time Receive d Time (Source) Location / / Volume Laterality Blood specimen 03/05/2019 3:39 PM 019 3:42 (specimen) EDT PM EDT Resulting Agency Comment Spec In Lab Norma Alejandra APRN HEMATOLOGY ORDERABLES Performing Organization Address City/State/[place] [address] Comprehensive metabolic panel (non-fasting) (03/05/2019 3:39 PM EDT) P athologist Signature Glucose Lvl 98 65 - 199 [facility] mg/dL [facility] Comment: Diabetes: >=200 mg/dL plus symp toms BUN 17 10 - 20 mg/dL [facility] Creatinine 1.08 0.80 - 1.50 mg/dL [facility] Sodium 139 135 - 145 mmol/L [facility] Potassium 3.9 3.5 - 5.0 mmol/L [facility] Comment: Please note: ??Patients with WBC >100,00 0 may have falsely elevated Potassium levels. ??For accurate Potassium quantif ication in these patients send serum separator tube (gold top) for subsequent determinations. ??Contact the Clinical Chemistry Laboratory if there are any qu estions. Chloride 103 98 - 107 mmol/L [facility] CO2 24 22 - 31 mmol/L [facility] Anion Gap 12 5 - 15 mmol/L [facility] Calcium 9.3 8.5 - 10.5 mg/dL [facility] Total Protein 7.5 6.1 - 8.0 gm/dL [facility] Albumin 4.4 3.2 - 5.2 gm/dL [facility] AST 19 0 - 39 unit/L [facility] ALT 39 0 - 55 unit/L [facility] Alk Phos 81 40 - 120 unit/L [facility] Total Bilirubin 0.4 0.2 - 1.3 mg/dL [facility] Estimated GFR 82 >=60 mL/min/1.73 m?? [facility] Comment: The eGFR was calculated using the CKD-EP I equation. As with all creatinine based estimates of kidney function, eGFR values calculated with the CKD-EPI equation are not accurate in patients wi th acute kidney failure, extremes of body mass or the acutely ill. [email or web address] [email or web address] eGFR 95 >=60 mL/min/1.73 m?? [facility] Comment: The eGFR was calculated using the CKD-EP I equation. As with all creatinine based estimates of kidney function, eGFR values calculated with the CKD-EPI equation are not accurate in patients wi th acute kidney failure, extremes of body mass or the acutely ill. [email or web address] Specimen Anatomical Collection Method Collection Time Receive d Time (Source) Location / / Volume Laterality Blood specimen 03/05/2019 3:39 PM 019 3:42 (specimen) EDT PM EDT Resulting Agency Comment Spec In Lab Norma Alejandra APRN CHEMISTRY ORDERABLES Performing Organization Address City/State/[place] [address] documented in this encounter Visit Diagnoses Diagnosis Thrombocytopenia Thrombocytopenia, unspecified Stage 1 chronic kidney disease documented in this encounter Care Teams Civil Engineering Intern Relationship Specialty Start Date End Date Kurtis Kingsley DO PCP - General 09/27/10 03/22/[address] [place] [address] documented as of this encounter
--- OUTSIDE RECORDS SUMMARY | 2022-08-02 12:59 | XMS_ITS | Encounter Summary ---
:1970 Author Organization [facility] [place] [address] Care Team Providers Name Role Phone Kurtis Kingsley Primary Care Provider Encounter Details Date Type Department Care Team Description 09/30/2018 Ancillary Procedure Radiology Library at Yovany Iyer MD [facility] [place] [address] [place] [address] [phone] (Wo rk) Social History Tobacco Use Types [...] Visit Hematology and Oncology Maikel Rebolledo MD [facility] [address] HEMATOLOGY/[place] [address] Norma Garrido APRN [facility] [address] HEMATOLOGY-[place] [address] Marleen Reis MD [facility] DR HEMATOLOGY/[place] [address] documented as of this encounter Procedures Procedure Name Priority Date/Time Associated Diagnosis Comme nts FILM LIBRARY Routine 09/30/2018 12:00 AM Results for this STORAGE ONLY DX HIP EST procedur e are in the results section. documented in this encounter Results Film Library- Storage Only DX Hip (09/30/2018 12:00 AM EST) Specimen (Source) Anatomical Location Collection Method / Collectio n Time Received Time / Laterality Volume Narrative LEVI ANGELES - 05/25/2020 11:26 AM EDT This exam is auto-finalizing. It's purpo se is for storage only. Christian Iyer MD IMGraciela FILM LIBRARY ORDERABLES Performing Organization Address City/State/ZIP Code Phon e Number [place], [place] documented in this encounter Visit Diagnoses Not on filedocumented in this encounter Care Teams Pediatrician Managing Partner Relationship Specialty Start Date End Date Kurtis Kingsley DO PCP - General 09/27/10 03/22/[address] [place] [address] documented as of this encounter
--- OUTSIDE RECORDS SUMMARY | 2022-08-02 12:59 | XMS_ITS | Encounter Summary ---
:1970 Author Organization [facility] [place] [address] Care Team Providers Name Role Phone Sancho Kurtis PIERRE Primary Care Provider Encounter Details Date Type Department Care Team Description 05/06/2021 External Results Hematology and Oncology at [facility] [place] [address] Social History Tobacco Use Types Packs/Day Years [...] and Oncology Maikel Rebolledo MD [facility] HEMATOLOGY/[place] [address] Norma Garrido APRN [facility] HEMATOLOGY-[place] [address] Marleen Reis MD [facility] DR HEMATOLOGY/[place] [address] documented as of this encounter Procedures Procedure Name Priority Date/Time Associated Comments Diagnosis CBC (WITH DIFF) Routine 03/22/2021 10:57 Results for this AM EDT procedure are i n the results section. COMPREHENSIVE Routine 03/22/2021 10:57 Results fo r this METABOLIC PANEL AM EDT procedure ar e in (NON-FASTING) the results section. documented in this encounter Results (ABNORMAL) Comprehensive metabolic panel (non-fasting) (03/22/2021 10:57 AM EDT) Analysis Performed At Patho logist Time Signature Glucose Lvl 103 EXTERNAL LAB BUN 19 EXTERNAL LAB (EXTERNAL/ ABN) Creatinine 1.3 EXTERNAL LAB Estimated GFR 58.92 EXTERNAL LAB (EXTERNAL/ ABN) Sodium 140 EXTERNAL LAB Potassium 4.0 EXTERNAL LAB Chloride 102 EXTERNAL LAB CO2 30 EXTERNAL LAB Calcium 9.0 EXTERNAL LAB Specimen (Source) Anatomical Collection Method Collection Time Re ceived Time Location / / Volume Laterality Blood 03/22/2021 10:57 AM EDT Historical Provider CHEMISTRY ORDERABLES Performing Organization Address City/State/ZIP Code Phon e Number EXTERNAL FACILITY EXTERNAL LAB (ABNORMAL) CBC (with Diff) (03/22/2021 10:57 AM EDT) Patholo gist Method Time Signature WBC 4.79 EXTERNAL LAB Hemoglobin 16.2 EXTERNAL LAB Hematocrit 46.9 EXTERNAL LAB Platelets 81 EXTERNAL LAB (EXTERNAL/ ABN) Neutr Abs (ANC) 2.54 EXTERNAL LAB Lymphocyte Abs 1.87 EXTERNAL LAB Specimen (Source) Anatomical Collection Method Collection Time Re ceived Time Location / / Volume Laterality Blood 03/22/2021 10:57 AM EDT Historical Provider HEMATOLOGY ORDERABLES Performing Organization Address City/State/ZIP Code Phon e Number EXTERNAL FACILITY EXTERNAL LAB documented in this encounter Visit Diagnoses Not on filedocumented in this encounter Care Teams Back Hoe Operator Relationship Specialty Start Date End Date Kurtis Kingsley DO PCP - General 09/27/10 03/22/[address] [place] [address] documented as of this encounter
--- OUTSIDE RECORDS SUMMARY | 2022-08-02 12:59 | XMS_ITS | Encounter Summary ---
:1970 Author Organization [facility] [place] [address] Care Team Providers Name Role Phone SanchoKurtis mcdaniel Primary Care Provider Reason for Visit Reason Comments Right Hip Pain Right hip LT MRI 0 - 2nd opinion Consultation (Routine) - Closed Specialty Diagnoses / Procedures Referred By Contact Refer red To Contact Orthopaedics Diagnoses Right hip Anterior superior labrum-torn at [facility], Remy Taylor MD Ames, James B, MD [address] [place], [place] [address] [place] [address] Phone: Fax: Referral ID Status Reason Start Date Expiration Date Visits V isits Requested Authorized [id number] Closed Consult, Test 04/28/2020 04/28/2021 1 [facility] PCP Updated and/or Approved Encounter Details Date Type Department Care Team Description 05/25/2020 Office Visit Orthopaedics at [facility] Christian [place] [address] ORTHOPAEDIC SURGERY [place], [place] [address] Social History Tobacco Use Types Packs/Day Years [...] Sign Reading Time Taken Comments Blood Pressure 134/84 05/25/2020 10:53 AM EDT Pulse 80 05/25/2020 10:53 AM EDT Temperature - - Respiratory Rate - - Oxygen Saturation - - Inhaled Oxygen Concentration - - Weight 97.5 kg (215 lb) 05/25/2020 10:53 AM EDT weighed Height 175.3 cm (5' 9) 05/25/2020 10:53 AM EDT Body Mass Index 31.75 05/25/2020 10:53 AM EDT documented in this encounter Progress Notes Christian Iyer MD - 05/25/2020 11:00 AM EDT Chief complaint: Chronic right low back/buttock pain HPI: 49-year-old gentleman seen in consultation from Dr. Addi Taylor for evaluation of the above complaint. He said a long difficult course with this right sided complaint. He excised a history of lumbar spine surgery on the right x2 with Dr. Simón Roger. He then had onset of left sided pain after basketball about 2 years ago. This left-sided pain resolved and then the right side began essentiallyat the same time. No significant trauma to the right side. He returned to Dr. Roger had a work-upfor spine issues had an SI joint work-up and Dr. Taylor has worked up his right hip. His most recent MR arthrogram of the right hip included an anesthetic/steroid and he feels he got about 2 days of relief of the low back/buttock pain from this. Physical exam he is an active healthy 49-year-old gentleman no distress. He points to the low back/buttock as the point of maximal pain. He tolerates hip flexion to 110 degrees. At 90 degrees of flexion he is 20 degrees of internal rotation 40 degrees of external rotation. He does get some pinching with flexion adduction internal rotation, however this does not re-create his primary complaint. Imaging: MRI scan is reviewed and shows scattered degenerative change with small osteophyte formation degenerative labral tearing and chondral thinning. A/P: 49-year-old gentleman with a chronic pain complaint. 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 The connection between these two findings is not 100% clear to me. I do not think he see much benefit from hip arthroscopy. He is considering arthroplasty for his hip. documented in this encounter Plan of Treatment Upcoming Encounters Date Type Specialty Care Team Description 09/06/2022 Appointment Hematology and Oncology 09/06/2022 Office Visit Hematology and Oncology Maikel Rebolledo MD [facility] DR HEMATOLOGY/[place] [address] Norma Garrido APRN [facility] [address] HEMATOLOGY-[place] [address] Marleen Reis MD [facility] DR HEMATOLOGY/[place] [address] documented as of this encounter Visit Diagnoses Diagnosis Right buttock pain Mylagia and myositis, unspecified documented in this encounter Care Teams Golf Ball Inspector Relationship Specialty Start Date End Date Kurtis [place] DO PCP - General 09/27/10 03/22/[address] [place] [address] documented as of this encounter
--- OUTSIDE RECORDS SUMMARY | 2022-08-02 12:59 | XMS_ITS | Encounter Summary ---
:1970 Author Organization [facility] [place] [address] Care Team Providers Name Role Phone SanchoKurtis mcdaniel Primary Care Provider Encounter Details Date Type Department Care Team Description 11/21/2019 Ancillary Procedure Radiology Library at [facility] [phone] Social History Tobacco Use Types Packs/Day Years [...] Visit Hematology and Oncology Maikel Rebolledo MD [facility] DR HEMATOLOGY/[place] [address] Norma Garrido APRN [facility] HEMATOLOGY[place] [address] Marleen Reis MD [facility] DR HEMATOLOGY/[place] [address] documented as of this encounter Procedures Procedure Name Priority Date/Time Associated Diagnosis Comme nts FILM LIBRARY Routine 11/21/2019 12:00 AM Results for this STORAGE ONLY DX EST procedure ar e in SHOULDER the results section. documented in this encounter Results Film Library- Storage Only DX Shoulder (11/21/2019 12:00 AM EST) Specimen (Source) Anatomical Location Collection Method / Collectio n Time Received Time / Laterality Volume Narrative LEVI ANGELES - 06/27/2022 3:54 PM EDT This exam is auto-finalizing. It's purpo se is for storage only. Ruperto Shultz APRN IMG FILM LIBRARY ORDERABLES Performing Organization Address City/State/ZIP Code Phon e Number [place], [place] documented in this encounter Visit Diagnoses Not on filedocumented in this encounter Care Teams Flat Knitter Helper Relationship Specialty Start Date End Date Kurtis [place] DO PCP - General 09/27/10 03/22/[address] [place] [address] documented as of this encounter
--- OUTSIDE RECORDS SUMMARY | 2022-08-02 12:59 | XMS_ITS | Encounter Summary ---
:1970 [place] [address] Care Team Providers Name Role Phone SanchoKurtis mcdaniel Primary Care Provider Encounter Details Date Type Department Care Team Description 02/27/2019 [facility]illary [facility] [id number] [place] [address] (Wo rk) [phone] Social History Tobacco Use Types Packs/Day Years [...] MD [facility] DR HEMATOLOGY/[place] [address] Norma Garrido APRN [facility] HEMATOLOGY[place] [address] Marleen Reis MD [facility] DR HEMATOLOGY/[place] [address] documented as of this encounter Procedures Procedure Name Priority Date/Time Associated Diagnosis Comme nts FILM LIBRARY Routine 02/27/2019 12:00 AM Results for this STORAGE ONLY MR EDT procedure ar e in WRIST the results section. documented in this encounter Results Film Library- Storage Only MR Wrist (02/27/2019 12:00 AM EDT) Specimen (Source) Anatomical Location Collection Method / Collectio n Time Received Time / Laterality Volume Narrative BRIDGETTE - 03/14/2019 9:40 AM EDT This exam is auto-finalizing. It's purpo se is for storage only. Norma Troy MD IMGraciela FILM LIBRARY ORDERABLES Performing Organization Address City/State/ZIP Code Phon e Number [place], [place] documented in this encounter Visit Diagnoses Not on filedocumented in this encounter Care Teams Quality Control Inspector Heading Relationship Specialty Start Date End Date Kurtis [place] DO PCP - General 09/27/10 03/22/[address] [place] [address] documented as of this encounter
--- OUTSIDE RECORDS SUMMARY | 2022-08-02 12:59 | XMS_ITS | Encounter Summary ---
:1970 Author Organization [facility] [place] [address] Care Team Providers Name Role Phone Kurtis [place] DO Primary Care Provider Reason for Visit Reason Comments Right Wrist Pain Consultation (Routine) - Closed Specialty Diagnoses / Procedures Referred By Contact Refer red To Contact Orthopaedics Diagnoses R Wrist pain Kurtis [place] DO [facility] Orth[facility] [address]a [address] [facility] [address] [place] [phone] [place], [place] [address] Referral ID Status Reason Start Date Expiration Date Visits V isits Requested Authorized [id number] Closed Consult, 03/09/2019 03/08/2020 1 1 [facility] Encounter Details Date Type Department Care Team Description 03/14/2019 Office Visit [place] [place] [facility] Petr Gomes Tendinitis of [facility] M, PA wrist [address] [place] [address] DAY [phone] [place] [address] Social History Tobacco Use Types Packs/Day Years Used Date Never Smoker Smokeless Tobacco: Never Used Alcohol Use Standard Drinks/Week Comments Yes 0 (1 standard drink = 0.6 oz pure alcoho l) Sex Assigned at Date Recorded Not on file documented as of this encounter Last Filed Vital Signs Vital Sign Reading Time Taken Comments Blood Pressure 141/87 03/14/2019 3:29 PM EDT Pulse 94 03/14/2019 3:29 PM EDT Temperature - - Respiratory Rate - - Oxygen Saturation - - Inhaled Oxygen Concentration - - Weight 95.3 kg (210 lb) 03/14/2019 3:29 PM EDT verbal Height 175.3 cm (5' 9) 03/14/2019 3:29 PM EDT verbal Body Mass Index 31.01 03/14/2019 3:29 PM EDT documented in this encounter Progress Notes Petr Gomes PA - 03/14/2019 3:40 PM EDT PATIENT NAME: Prasanna Shipman AGE: 48 y.o. MR#: [id number] DATE OF VISIT: 03/14/2019 DATE OF INJURY/ONSET: 6 weeks STAFF: Dr. Rivas CHIEF COMPLAINT: Right wrist pain HISTORY OF PRESENT ILLNESS: Mr. Shipman is a right hand dominant 48 y.o. male who comes into clinic today for evaluation of right wrist pain that began after a fall while tripping on his steps at his house. He did fall onto both hands but is only had continued wrist pain on his right. Patient was evaluated by [facility] and was not found to have a fracture. He had continued pain despite splinting and Tylenol use and they did an MRI which was significant for tendinitis of the first extensor compartment. The patient has been using a thumb spica brace but states it is not helpedvery much and taking Tylenol 1200 mg/day. He does not have any numbness or tingling and continues to be able to flex and extend his thumb without locking. He states the pain will radiate up into his forearm. Medications and Allergies were reviewed in eD-H PAST MEDICAL HX: Past Medical History: Diagnosis Date ??? Allergy ??? asthma ??? prostatitis ??? restless leg PAST SURGICAL HX: Past Surgical History: Procedure Laterality Date ??? CT GUIDED INJECTION SI JOINT 09/10/2018 CT Guided Injection SI Joint 09/10/2018 [facility] RAD CAT SCAN ??? PRO UNLISTED PROCEDURE, MUSCULOSKELETAL SYSTEM, GENERAL Knee ??? PRO UNLISTED PX UR SYS June, Vasectomy SOCIAL HX: Social History Occupational History ??? Not on file Tobacco Use ??? Smoking status: Never Smoker ??? Smokeless tobacco: Never Used Substance and Sexual Activity ??? Alcohol use: Yes Types: 1 Glasses of wine per week ??? Drug use: No ??? Sexual activity: Not on file ROS: Pertinent items are noted in HPI. General Health, Prior Treatments, PreExisting Condition, Health Habits, About You 03/14/2019 PROMIS-10 General Health Good PROMIS-10 Quality of Life Good PROMIS-10 Physical Health Fair PROMIS-10 Mental Health Very Good PROMIS-10 Social Activity Excellent PROMIS-10 Everyday Activities Mostly PROMIS-10 Pain 6 PROMIS-10 Fatigue Moderate PROMIS-10 Social Roles Very Good PROMIS-10 Anxious or Depressed Rarely PROMIS PHYSICAL SCORE (range 16-68) 39.8 PROMIS MENTAL SCORE (range 21-68) 53.3 Treatments Tried Regular exercise, Weight loss, Orthotics, Physical therapy, Acupuncture, Acetaminophen (e.g. Tylenol), Over the counter anti-inflammatory drugs (e.g Advil, Aspirin, Aleve), Prescribed anti-inflammatory drugs, Electrical stimulation (TENS/Transcutaneous Electrical Nerve Stimulation), In jection of steroids or cortisone, Prior surgery for this problem Prior Surgery Back 12/2012 and 12/2014 Alzheimers or dementia No Cirrohosis or liver disease No HIV/AIDS No Pain in more than one joint in legs Yes Back or neck pain Yes Heart attack No Heart failure No Unclog/bypass leg arteries No Stroke, blood clot, TIA No Asthma Yes Take medication for asthma Yes Emphysema, chronic bronchities, or COPD No Stomach ulcers/peptic ulcer disease No Diabetes No Poor kidney function No Rheumatic condtions No Cancer No Weight (lbs) 210 Height (feet) 5 feet Height (Inches) 9 BMI 31 (Obese) Ever used tobacco products No Ever used alcoholic beverages Yes Alcohol frequency Once or twice WHO - Alcohol Advice 2 (You are at low risk of health and other problems from your current pattern of use.) Live Alone No Marital situation Schooling More than 4 - year college Combined Household Income $35,000 to less than $50,000 # People Supported 5 Indian, , No, not Indian// Race White Health Literacy Extremely Currently working Yes Current job situation Full-time No flowsheet data found. No flowsheet data found. PHYSICAL EXAM: Mr. Shipman is a 48 y.o. male who is alert, appears stated age and cooperative. Inspection: There is mild swelling over the radial aspect of the right wrist that is not erythematous or warm to touch. Palpation: He has point tenderness over the base of the right thumb along the first extensor compartment. ROM/Strength: Patient is able to flex and extend his wrist as well as radially and ulnarly deviate. Pain is elicited with extension and ulnar deviation. Orthopedic testing: Obed-positive Neurovascular: Sensation and motor function are intact along the median, radial and ulnar nerve roots. His hand is well-perfused, distal radial pulse 2+. DIAGNOSTIC STUDIES: X-ray and MRI were both personally reviewed with the patient and demonstrate no acute fracture dislocation. The MRI was significant for extensor Salome Vitas of the first extensor compartment. ASSESSMENT: Mr. Shipman presents with right wrist pain for the past 6 weeks that has been unresponsiveto thumb spica bracing and Tylenol. He did have an x-ray and MRI which did not demonstrate fracture but did have some tendinitis over the first extensor compartment. On exam he did have some mild swelling that is not erythematous or warm to touch but did have tenderness over the base of his thumb along the first extensor compartment. He also had a markedly positive Obed exam indicative of de Quervain's tenosynovitis. We discussed first- line management is generally immobilization with a thumb spica brace and anti- inflammatory medications. The patient does however have ITP and is unable to take ibuprofen or Aleve. Since it is not gotten better with bracing over the past 6 weeks it was discussed that he could try a cortisone injection into the first extensor compartment. The patient was agreeable to try this and the risks were addressed including infection bleeding nerve tendon or vessel injury skin discoloration transient rise in blood glucose recurrence of pain and steroid flare. If he does experience an increase in pain this is usually well controlled with Tylenol and ice only. A timeout was performed prior to the injection, please see the full procedure note below. PLAN: He will return for follow up in 6- 8 weeks if not better with the injection and thumb spica splint. The patient understands to contact us if they have any other questions or concerns. PROCEDURE NOTE: Right DEQUERVAIN'S INJECTION A time-out was performed and the right wrist was confirmed to be the site of injection. The patient was confirmed to have no allergies to betadine, local anesthetics, or corticosteroids. The patient was reminded that blood glucose can be transiently elevated by the corticosteroid injection. The patient was counseled about the potential risks of the procedure, including infection, bleeding, incompleterelief of symptoms, and skin blanching at the injection site. I also discussed with the patient thatcortisone is not healthy for muscle tendons or cartilage and that there is an increased risk with repeated injections. The skin was prepped widely over the radial aspect of the wrist with alcohol and betadine. Using sterile technique, the needle was advanced into the tendon sheath within the first extensor compartment.A steroid injection was then performed using 2cc 1% plain Lidocaine and 2cc (12 mg) of Celestone. The skin was cleaned with alcohol and a band-aid was applied. The patient tolerated the procedure well. The above documentation was completed using Blueseed voice recognition software. documented in this encounter Plan of Treatment Upcoming Encounters Date Type Specialty Care Team Description 09/06/2022 Appointment Hematology and Oncology 09/06/2022 Office Visit Hematology and Oncology Maikel Rebolledo MD [facility] DR HEMATOLOGY/[place] [address] Norma Garrido APRN [facility] DR HEMATOLOGY-[place] [address] Marleen Reis MD [facility] DR HEMATOLOGY/[place] [address] documented as of this encounter Visit Diagnoses Diagnosis Tendinitis of right wrist Other tenosynovitis of hand and wrist documented in this encounter Administered Medications Inactive Administered Medications - up to 3 most recent administrations Medication Order MAR Action Action Date Dose Rate Site betamethasone acetate-betamethasone Given 03/14/2019 4:14 PM EDT 12 mg sodium phosphate (CELESTONE) injection 12 mg 12 mg, Intra-articular, ONCE, 1 dose, On Sun03/14/19 at 1630, Routine lidocaine (XYLOCAINE) 10 mg/mL (1 %) injection Given 0 03/14/2019 4:14 PM EDT 20 mg 20 mg 20 mg, Subcutaneous, ONCE, 1 dose, On Sun03/14/19 at 1630, Routine documented in this encounter Care Teams Showcase Maker Relationship Specialty Start Date End Date Kurtis [place] DO PCP - General 09/27/10 03/22/[address] [place] [address] documented as of this encounter
--- OUTSIDE RECORDS SUMMARY | 2022-08-02 12:59 | XMS_ITS | Encounter Summary ---
:1970 Author Organization [facility] [place] [address] Care Team Providers Name Role Phone Kurtis [place] DO Primary Care Provider Encounter Details Date Type Department Care Team Description 10/14/2019 Telephone Hematology and Oncol [place] at [facility] [place] [place] [address] Social History Tobacco Use Types Packs/Day Years Used Date Never Smoker Smokeless Tobacco: Never Used Alcohol Use Standard Drinks/Week Comments Yes 0 (1 standard drink = 0.6 oz pure alcoho l) Sex Assigned at Date Recorded Not on file documented as of this encounter Miscellaneous Notes Telephone Encounter - Mickie Miranda RN - 10/14/2019 3:31 PM EST Message received from secretary receptionist: Injection/Infusion Referral Call placed to [facility] Spoke w/ LAB. Services to be provided for pt are: LABS: CBC w/DIFF ~01/12/20 LAB confirmed they would provide services to pt and would contact with appointment time. Pt demographics, office note, med list and orders faxed to . documented in this encounter Plan of Treatment Upcoming Encounters Date Type Specialty Care Team Description 09/06/2022 Appointment Hematology and Oncology 09/06/2022 Office Visit Hematology and Oncology Maikel Rebolledo MD [facility] DR HEMATOLOGY/[place] [address] Norma Garrido APRN [facility] DR HEMATOLOGY-[place] [address] Marleen Reis MD [facility] DR HEMATOLOGY/[place] [address] documented as of this encounter Visit Diagnoses Not on filedocumented in this encounter Care Teams Field Sales Engineer Relationship Specialty Start Date End Date Kurtis [place] DO PCP - General 09/27/10 03/22/[address] [place] [address] documented as of this encounter
--- OUTSIDE RECORDS SUMMARY | 2022-08-02 12:59 | XMS_ITS | Encounter Summary ---
:1970 [place] [address] Care Team Providers Name Role Phone SanchoKurtis mcdaniel Primary Care Provider Encounter Details Date Type Department Care Team Description 04/07/2020 [facility]illary [facility] [address] [phone] Social History Tobacco Use Types Packs/Day Years [...] Visit Hematology and Oncology Maikel Rebolledo MD [facility] DR HEMATOLOGY/[place] [address] Norma Garrido APRN [facility] DR [place]EMATOLOG[place] [address] Marleen Reis MD [facility] DR HEMATOLOGY/[place] [address] documented as of this encounter Procedures Procedure Name Priority Date/Time Associated Diagnosis Comme nts FILM LIBRARY Routine 04/07/2020 12:00 AM Results for this STORAGE ONLY MR HIP EDT procedur e are in the results section. documented in this encounter Results Film Library- Storage Only MR Hip (04/07/2020 12:00 AM EDT) Specimen (Source) Anatomical Location Collection Method / Collectio n Time Received Time / Laterality Volume Narrative BRIDGETTE - 04/08/2020 8:33 AM EDT This exam is auto-finalizing. It's purpo se is for storage only. Remy Taylor MD IMG FILM LIBRARY ORDERABLES Performing Organization Address City/State/ZIP Code Phon e Number [place], [place] documented in this encounter Visit Diagnoses Not on filedocumented in this encounter Care Teams Mathematics Professor Relationship Specialty Start Date End Date Kurtis [place] DO PCP - General 09/27/10 03/22/[address] [place] [address] documented as of this encounter
--- OUTSIDE RECORDS SUMMARY | 2022-08-02 12:59 | XMS_ITS | Encounter Summary ---
:1970 Author Organization [facility] [place] [address] Care Team Providers Name Role Phone SanchoKurtis Primary Care Provider Reason for Visit Reason Comments Follow-up Encounter Details Date Type Department Care Team Description 10/13/2020 Office Visit Hematology and Maikel Rebolledo MD [facility] HEMATOLOGY/[place] [address] Idiopathic Oncology at [facility] Norma Alejandra APRN [facility] [address] HEMATOLOGY-[place] [address] thrombocytopenic purpura [facility] Cami David DO [facility] DR HEMATOLOGY/[place] [address] [place] [address] Social History Tobacco Use Types Packs/Day Years [...] Sign Reading Time Taken Comments Blood Pressure 122/91 10/13/2020 9:13 AM EST Pulse 89 10/13/2020 9:13 AM EST Temperature 35.4 ??C (95.7 ??F) 10/13/2020 9:13 AM EST Respiratory Rate 20 10/13/2020 9:13 AM EST Oxygen Saturation 97% 10/13/2020 9:13 AM EST Inhaled Oxygen Concentration - - Weight 98 kg (216 lb) 10/13/2020 9:13 AM EST Height 176.6 cm (5' 9.53) 10/13/2020 9:13 AM EST Body Mass Index 31.41 10/13/2020 9:13 AM EST documented in this encounter Progress Notes Norma Alejandra, PASSENGER SERVICE MANAGER - 10/13/2020 9:30 AM EST Images from the original note were not included. Attending Physician: Referring physician: Kurtis Durbin Reason for f/up: Thrombocytopenia HPI: 49 y/o male with Hx of [...] that time, his platelets are slowly decreasing with the most recent to being 66-67,000 over the past 9 months. Prasanna reports that he had his right hip replaced in June in [place]. He continues on physical therapy to try to help strengthen that leg. He still has incision site discomfort but feels like he is slowly making progress. He has not had any abnormal bleeding bruising or petechiae. He does note an occasional bright red blood per rectum. Prasanna had a colonoscopy 2 years ago which was normal. No issues with early satiety or weight loss. Staying active at home. Prasanna just gave his notice at his current job and will be excepting a job closer to home which does not call for so much travel. He is really looking forward to the new position. Flu vaccine: No. Prefers not to have [...] to visit. 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 Family History: - Mother: was tested negative for PLT antigen 1; never had low plt count; - Father: htn, dlp - Siblings: brother and sister: both healthy; His sister also had low plt count at and was transfused; no issues now. Brother is a rubber covering machine operator at [employer]. 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 Physical Exam: BP (!) 122/91 (Patient Position: Sitting) Pulse 89 Temp 35.4 ??C (95.7 ??F) (Temporal) Resp 20 Ht 176.6 cm (5' 9.53) Wt 98 kg (216 lb) SpO2 97% BMI 31.41 kg/m?? GENERAL: Prasanna looks well today HEENT: Oropharynx clear without lesions or thrush. No petechiae NECK: Supple and without adenopathy or thyroid enlargement. CARDIAC: Regular rate and rhythm without S3, S4 or murmurs. LUNGS: Clear to auscultation bilaterally. No rales, rhonchi or wheezing. ABDOMEN: Mild discomfort in the left upper and lower quadrant of the abdomen without any findings ofsplenomegaly EXTREMITIES: No edema, cyanosis or clubbing. SKIN: No rashes or lesions. No bruises or petechiae. MUSCULOSKELETAL: NEUROLOGICAL: Alert and oriented to person, place and time. Labs: Recent Results (from the past 72 hour(s)) Comprehensive metabolic panel (non-fasting) Result Value Ref Range Glucose Lvl 97 65 - 199 mg/dL BUN 17 10 - 20 mg/dL Creatinine 1.06 0.80 - 1.50 mg/dL Sodium 140 135 - 145 mmol/L Potassium 4.5 3.5 - 5.0 mmol/L Chloride 103 98 - 107 mmol/L CO2 27 22 - 31 mmol/L Anion Gap 10 5 - 15 mmol/L Calcium 9.5 8.5 - 10.5 mg/dL Total Protein 7.1 6.1 - 8.0 gm/dL Albumin 4.6 3.2 - 5.2 gm/dL AST 32 0 - 39 unit/L ALT 41 0 - 55 unit/L Alk Phos 86 40 - 130 unit/L Total Bilirubin 0.5 0.2 - 1.3 mg/dL Estimated GFR 83 >=60 mL/min/1.73 m?? Hemogram Result Value Ref Range WBC 5.0 4.0 - 9.5 x10(3)/mcL RBC 5.63 (H) 4.58 - 5.54 x10(6)/mcL Hemoglobin 16.0 13.7 - 16.5 gm/dL Hematocrit 46.3 40.5 - 48.5 % MCV 82.2 (L) 82.9 - 93.1 fL MCH 28.4 27.5 - 32.1 pg MCHC 34.6 32.0 - 35.7 gm/dL Platelets 65 (L) 145 - 357 x10(3)/mcL RDWSD 39.0 36.0 - 45.0 fL RDWCV 13.1 11.4 - 13.8 % MPV 12.0 7.6 - 12.9 fL nRBC % Auto 0.0 % nRBC Abs Auto 0.000 0.000 - 0.000 x10(3)/mcL Differential, Automated Result Value Ref Range Neutrophils % 44.8 % Neutr Abs (ANC) 2.25 1.70 - 6.10 x10(3)/mcL Lymphocytes % 42.1 % Lymphocytes Abs 2.1 0.9 - 3.2 x10(3)/mcL Monocytes % 9.3 % Monocyte Abs 0.5 0.3 - 0.9 x10(3)/mcL Eosinophils % 2.4 % Eosinophils Abs 0.1 0.0 - 0.4 x10(3)/mcL Basophils % 0.8 % Basophils Abs 0.0 0.0 - 0.1 x10(3)/mcL Immature Gran % 0.60 % Cheli Gran Abs 0.03 0.00 - 0.04 x10(3)/mcL Radiology/Studies: None to review spleen. It is 15.7 cm from [facility] CT scan Assessment/Plan: 50 y/o M with thrombocytopenia. His work up did not reveal any causative factor. We first saw, in October 2015. Since that time, his platelets have gradually decreased over the ensuing 5 years. For the past 9 months, his platelets have been stable at 65-67,000 range. He has denied any problems with bleeding or bruising in the past. He had a most recent right total hip replacement without any evidence of bleeding or complications postoperatively. #Hypertension 121/91 Routine follow-up and healthcare maintenance with Dr. Kingsley Continue with routine exercise and weight control Plan No intervention for thrombocytopenia at this time Continue to monitor for any bleeding, bruising or petechiae Follow-up with Prasanna in 6 months, sooner for any new clinical concerns NORMA ALEJANDRA APRN Hematology and Oncology ===== documented in this encounter Plan of Treatment Upcoming Encounters Date Type Specialty Care Team Description 09/06/2022 Appointment Hematology and Oncology 09/06/2022 Office Visit Hematology and Oncology Maikel Rebolledo MD [facility] [address] HEMATOLOGY/[place] [address] Norma Alejandra APRN [facility] [address] HEMATOLOGY-[place] [address] Marleen Reis MD [facility] DR HEMATOLOGY/[place] [address] documented as of this encounter Visit Diagnoses Diagnosis Idiopathic thrombocytopenic purpura Immune thrombocytopenic purpura documented in this encounter Care Teams Band Sawing Machine Operator Relationship Specialty Start Date End Date Kurtis Kingsley DO PCP - General 09/27/10 03/22/[address] [place] [address] documented as of this encounter
--- OUTSIDE RECORDS SUMMARY | 2022-08-02 12:59 | XMS_ITS | Encounter Summary ---
:1970 Author Organization [facility] [place] [address] Care Team Providers Name Role Phone Kurtis Kingsley Primary Care Provider Encounter Details Date Type Department Care Team Description 10/16/2018 Ancillary Procedure Radiology Library at Yovany Iyer MD [facility] [place] [address] [place] [address] [phone] (Wo rk) Social History Tobacco Use Types [...] [facility] HEMATOLOGY/[place] [address] Norma Garrido APRN [facility] HEMATOLOGY[place] [address] Marleen Reis MD [facility] DR HEMATOLOGY/[place] [address] documented as of this encounter Procedures Procedure Name Priority Date/Time Associated Diagnosis Comme nts FILM LIBRARY Routine 10/16/2018 12:00 AM Results for this STORAGE ONLY MR HIP EST procedur e are in the results section. documented in this encounter Results Film Library- Storage Only MR Hip (10/16/2018 12:00 AM EST) Specimen (Source) Anatomical Location Collection Method / Collectio n Time Received Time / Laterality Volume Narrative LEVI ANGELES - 05/25/2020 11:22 AM EDT This exam is auto-finalizing. It's purpo se is for storage only. Christian Iyer MD IMGraciela FILM LIBRARY ORDERABLES Performing Organization Address City/State/ZIP Code Phon e Number [place], [place] documented in this encounter Visit Diagnoses Not on filedocumented in this encounter Care Teams Signal Worker Relationship Specialty Start Date End Date Kurtis Kingsley DO PCP - General 09/27/10 03/22/[address] [place] [address] documented as of this encounter
--- OUTSIDE RECORDS SUMMARY | 2022-08-02 12:59 | XMS_ITS | Encounter Summary ---
:1970 Author Organization [facility] [place] [address] Care Team Providers Name Role Phone SanchoKurtis mcdaniel Primary Care Provider Encounter Details Date Type Department Care Team Description 08/28/2018 Hospital Encounter Hematology and Oncology at [facility] [place] [address] Social History Tobacco Use Types Packs/Day Years Used Date Never Smoker Smokeless Tobacco: Never Used Alcohol Use Standard Drinks/Week Comments Yes 0 (1 standard drink = 0.6 oz pure alcoho l) Sex Assigned at Date Recorded Not on file documented as of this encounter Medications at Time of Discharge Medication Sig Dispensed Refills Start Date End Date pramipexole (MIRAPEX) 1 mg 0.5 mg. 0 5 TabletIndications: pt Indications: pt states he is taking .5 mg states he is taking .5 mg FEXOFENADINE HCL (DAVID 0 09/16/2009 03/14/2019 ORAL) documented as of this encounter Plan of Treatment Upcoming Encounters Date Type Specialty Care Team Description 09/06/2022 Appointment Hematology and Oncology 09/06/2022 Office Visit Hematology and Oncology Maikel Rebolledo MD [facility] DR HEMATOLOGY/[place] [address] Norma Garrido APRN [facility] DR HEMATOLOGY-[place] [address] Marleen Reis MD [facility] DR HEMATOLOGY/[place] [address] documented as of this encounter Procedures Procedure Name Priority Date/Time Associated Diagnosis Comme nts HEMOGRAM STAT 08/28/2018 12:41 Thrombocytopenia Results for this PM EDT procedure are i n the results section. DIFFERENTIAL, STAT 08/28/2018 12:41 Thrombocytopenia Result s for this AUTOMATED PM EDT procedure are i n the results section. CBC (WITH DIFF) STAT 08/28/2018 12:41 Thrombocytopenia PM EDT BASIC METABOLIC STAT 08/28/2018 12:41 Thrombocytopenia Resu lts for this PANEL (NON-FASTING) PM EDT procedur e are in the results section. documented in this encounter Results Differential, Automated (08/28/2018 12:41 PM EDT) athologist Signature Neutrophils % 46.4 % [facility] Neutr Abs (ANC) 2.13 1.70 - [facility] 6.10 [facility] x10(3)/[facility] LABORATORY Lymphocytes % 42.4 % [facility] Lymphocytes Abs 1.9 0.9 - 3.2 [facility] x10(3)/[facility] LABORATORY Monocytes % 8.1 % [facility] Monocyte Abs 0.4 0.3 - 0.9 [facility] x10(3)/[facility] LABORATORY Eosinophils % 2.2 % [facility] Eosinophils Abs 0.1 0.0 - 0.4 [facility] x10(3)/[facility] LABORATORY Basophils % 0.7 % [facility] Basophils Abs 0.0 0.0 - 0.1 [facility] x10(3)/[facility] LABORATORY Immature Gran % 0.20 % [facility] Comment: Immature granulocytes(IG's)percentage an d absolute count will include metamyelocytes, myelocytes, and promyelo cytes. Blood smears from CBCs yielding IG's will be scanned manually for concor dance. If this scan disagrees with the automated IG or if promyelocytes are not ed, a manual differential will be performed. Cheli Gran Abs 0.01 0.00 - 0.04 x10(3)/[facility]ORY Specimen Anatomical Collection Method Collection Time Receive d Time (Source) Location / / Volume Laterality Blood specimen 08/28/2018 12:41 8 1:08 (specimen) PM EDT PM EDT Resulting Agency Comment Spec In Lab Norma Garrido APRN HEMATOLOGY ORDERABLES Performing Organization Address City/State/ZIP [place] [address] (ABNORMAL) Hemogram (08/28/2018 12:41 PM EDT) Analysis Performed At Patho logist Time Signature WBC 4.6 4.0 - 9.5 [facility] x10(3)/[facility] LABORATORY RBC 5.43 4.58 - [facility] x10(6)/[facility] LABORATORY Hemoglobin 15.8 13.7 - [facility] 16.5 gm/dL [facility]ORY Hematocrit 44.8 40.5 - [facility] 48.5 % [facility] MCV 82.5 (L) 82.9 - [facility] 93.1 [facility] LABORATORY MCH 29.1 27.5 - [facility] 32.1 pg [facility] MCHC 35.3 32.0 - [facility] 35.[facility] gm/dL [facility] Platelets 72 (L) 145 - 357 [facility] x10(3)/[facility] LABORATORY RDWSD 37.7 36.0 - [facility]0 [facility] RDWCV 12.5 11.4 - [facility] 13.8 % [facility] LABORATORY MPV 11.7 7.6 - 12.9 [facility] LABORATORY nRBC % Auto 0.0 % [facility] nRBC Abs Auto 0.000 0.000 - [facility] 0.000 [facility] x10(3)/[facility] LABORATORY Specimen Anatomical Collection Method Collection Time Receive d Time (Source) Location / / Volume Laterality Blood specimen 08/28/2018 12:41 8 1:08 (specimen) PM EDT PM EDT Resulting Agency Comment Spec In Lab Norma Garrido SWATHI HEMATOLOGY ORDERABLES Performing Organization Address City/State/ZIP [place] [address] Basic Metabolic Panel (non-fasting) (08/28/2018 12:41 PM EDT) P athologist Signature Glucose Lvl 106 65 - 199 [facility] mg/dL [facility] Comment: Diabetes: >=200 mg/dL plus symp toms BUN 16 10 - 20 mg/dL [facility] Creatinine 1.14 0.80 - 1.50 mg/dL [facility] Sodium 142 135 - 145 mmol/L [facility] Potassium 4.2 3.5 - 5.0 mmol/L [facility] Comment: Please note: ??Patients with WBC >100,00 0 may have falsely elevated Potassium levels. ??For accurate Potassium quantif ication in these patients send serum separator tube (gold top) for subsequent determinations. ??Contact the Clinical Chemistry Laboratory if there are any qu estions. Chloride 102 98 - 107 mmol/L [facility] CO2 27 22 - 31 mmol/L [facility] Anion Gap 13 5 - 15 mmol/L [facility] Calcium 9.7 8.5 - 10.5 mg/dL [facility] Estimated GFR 77 >=60 mL/min/1.73 m?? [facility] Comment: The eGFR was calculated using the CKD-EP I equation. As with all creatinine based estimates of kidney function, eGFR values calculated with the CKD-EPI equation are not accurate in patients wi th acute kidney failure, extremes of body mass or the acutely ill. [email or web address] eGFR 89 >=60 mL/min/1.73 m?? [facility] Comment: The eGFR was calculated using the CKD-EP I equation. As with all creatinine based estimates of kidney function, eGFR values calculated with the CKD-EPI equation are not accurate in patients wi th acute kidney failure, extremes of body mass or the acutely ill. [email or web address] Specimen Anatomical Collection Method Collection Time Receive d Time (Source) Location / / Volume Laterality Blood specimen 08/28/2018 12:41 8 1:08 (specimen) PM EDT PM EDT Resulting Agency Comment Spec In Lab Norma Garrido APRN CHEMISTRY ORDERABLES Performing Organization Address City/State/ZIP [place] [address] documented in this encounter Visit Diagnoses Diagnosis Thrombocytopenia Thrombocytopenia, unspecified documented in this encounter Care Teams Mobile Home Technician Relationship Specialty Start Date End Date Kurtis Kinglsey DO PCP - General 09/27/10 03/22/[address] [place] [address] documented as of this encounter
--- OUTSIDE RECORDS SUMMARY | 2022-08-02 12:59 | XMS_ITS | Encounter Summary ---
:1970 Author Organization [facility] [place] [address] Care Team Providers Name Role Phone Kurtis Kingsley Primary Care Provider Reason for Visit Reason Comments Follow-up Encounter Details Date Type Department Care Team Description 04/14/2020 Office Visit Hematology and Maikel Brooke MD [facility] [address] HEMATOLOGY/[place] [address] Idiopathic thrombocytopenic purpura; [place] [facility] Norma Garrido APRN [facility] [address] [place]EMATOLOGY[place] [address] Stage 1 [place] [address] Social History Tobacco Use Types Packs/Day Years Used Date Never Smoker Smokeless Tobacco: Never Used Alcohol Use Standard Drinks/Week Comments Yes 0 (1 standard drink = 0.6 oz pure alcoho l) Sex Assigned at Date Recorded Not on file documented as of this encounter Last Filed Vital Signs Vital Sign Reading Time Taken Comments Blood Pressure 135/87 04/14/2020 9:25 AM EDT Pulse 77 04/14/2020 9:25 AM EDT Temperature 36.3 ??C (97.3 ??F) 04/14/2020 9:25 AM EDT Respiratory Rate 18 04/14/2020 9:25 AM EDT Oxygen Saturation 98% 04/14/2020 9:25 AM EDT Inhaled Oxygen Concentration - - Weight 97.8 kg (215 lb 9.6 oz) 04/14/2020 9:25 AM EDT Height 176 cm (5' 9.29) 04/14/2020 9:25 AM EDT Body Mass Index 31.57 04/14/2020 9:25 AM EDT documented in this encounter Progress Notes Maikel Brooke MD - 04/14/2020 9:30 AM EDT Images from the original note [...] with no excessive bleeding. 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 He was first seen by us in October 2015. Since that time, his platelets are slowly decreasing with the most recent to being 66-67,000 over the past 9 months. He notes that he is tentatively scheduled for potential surgical procedure on his hip in the next few months locally at [place]. No issues with bleeding or excessive bruising Remainder of review of systems is negative Review of systems: Constitutional: as above Eyes: negative Respiratory: Negative. Cardiovascular: Negative. Gastrointestinal: GERD ---> chronic. Genitourinary: Negative. Skin: Negative. Neurological: as above Hematological: as above Psychiatric/Behavioral: Negative. Musculoskeletal: Chronic back pain Past Medical History: - Lipomas - Restless leg syndrome - lasik surgery for vision correction - Knee surgery for torn meniscus and back surgeries : in 2012, 12/2014; - Back surgery Allergies: Pollen, micronized Medications: Current Outpatient Medications on File Prior to Visit Medication Sig Dispense Refill ??? multivitamin Tablet, Chewable Take by mouth. ??? cetirizine (ZYRTEC) 10 mg Tablet ??? pramipexole (MIRAPEX) 1 mg Tablet 0.5 mg. Indications: pt states he is taking .5 mg ??? PROAIR HFA 90 mcg/actuation HFA Aerosol Inhaler Indications: PRN 1 No current facility-administered medications on file prior to visit. 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 Family History: - Mother: was tested negative for PLT antigen 1; never had low plt count; - Father: htn, dlp - Siblings: brother and sister: both healthy; His sister also had low plt count at and was transfused; no issues now. Brother is a music video producer at [employer]. 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 Physical Exam: There were no vitals taken for this visit. Blood pressure 135/87, pulse 77, temperature 36.3 ??C (97.3 ??F), temperature source Temporal, resp.rate 18, height 176 cm (5' 9.29), weight 97.8 kg (215 lb 9.6 oz), SpO2 98 %. GENERAL: Patient appears well and is in no acute distress. HEENT: NCAT . EOMI, PERRLA; anicteric, No conjunctival injection Sinuses non- tender. Oral pharynx isclear without erythema or exudate. NECK: Supple and without adenopathy or thyroid enlargement. CARDIAC: Regular rate and rhythm without S3, S4 or murmurs. LUNGS: Clear to auscultation bilaterally. No rales, rhonchi or wheezing. ABDOMEN: fullness in the location of the spleen without a palpable discrete tip noted. EXTREMITIES: No edema, cyanosis or clubbing. SKIN: No rashes or lesions. No bruises or petechiae. LYMPHADENOPATHY: No abnormal lymphadenopathy. MUSCULOSKELETAL: Lower right back discomfort with palpation NEUROLOGICAL: Alert and oriented to person, place and time. Labs: Recent Results (from the past 72 hour(s)) Hemogram Result Value Ref Range WBC 5.9 4.0 - 9.5 x10(3)/mcL RBC 5.53 4.58 - 5.54 x10(6)/mcL Hemoglobin 16.2 13.7 - 16.5 gm/dL Hematocrit 46.5 40.5 - 48.5 % MCV 84.1 82.9 - 93.1 fL MCH 29.3 27.5 - 32.1 pg MCHC 34.8 32.0 - 35.7 gm/dL Platelets 67 (L) 145 - 357 x10(3)/mcL RDWSD 38.1 36.0 - 45.0 fL RDWCV 12.7 11.4 - 13.8 % MPV 11.5 7.6 - 12.9 fL nRBC % Auto 0.0 % nRBC Abs Auto 0.000 0.000 - 0.000 x10(3)/mcL Differential, Automated Result Value Ref Range Neutrophils % 47.3 % Neutr Abs (ANC) 2.80 1.70 - 6.10 x10(3)/mcL Lymphocytes % 38.4 % Lymphocytes Abs 2.3 0.9 - 3.2 x10(3)/mcL Monocytes % 8.9 % Monocyte Abs 0.5 0.3 - 0.9 x10(3)/mcL Eosinophils % 2.2 % Eosinophils Abs 0.1 0.0 - 0.4 x10(3)/mcL Basophils % 0.7 % Basophils Abs 0.0 0.0 - 0.1 x10(3)/mcL Immature Gran % 2.50 % Cheli Gran Abs 0.15 (H) 0.00 - 0.04 x10(3)/mcL Green Tube HOLD Result Value Ref Range Green Hold Sample in lab. Comprehensive metabolic panel (non-fasting) Result Value Ref Range Glucose Lvl 93 65 - 199 mg/dL BUN 25 (H) 10 - 20 mg/dL Creatinine 1.19 0.80 - 1.50 mg/dL Sodium 136 135 - 145 mmol/L Potassium 3.8 3.5 - 5.0 mmol/L Chloride 99 98 - 107 mmol/L CO2 25 22 - 31 mmol/L Anion Gap 12 5 - 15 mmol/L Calcium 8.8 8.5 - 10.5 mg/dL Total Protein 6.9 6.1 - 8.0 gm/dL Albumin 4.3 3.2 - 5.2 gm/dL AST 17 0 - 39 unit/L ALT 42 0 - 55 unit/L Alk Phos 75 40 - 130 unit/L Total Bilirubin 0.4 0.2 - 1.3 mg/dL eGFR 72 >=60 mL/min/1.73 m?? eGFR 84 >=60 mL/min/1.73 m?? Radiology/Studies: None to review spleen. It is 15.7 cm from [facility] scan Assessment/Plan: 49 y/o M with thrombocytopenia. His work up did not reveal any causative factor. We first saw, in October 2015. Since that time, his platelets have gradually decreased over the ensuing 5 years. For the past 9 months, his platelets have been stable at 66-67,000 range. He has denied any problems with bleeding or bruising in the past. He has had multiple surgeries in the past as noted above without anyevidence of bleeding. Today, notes that he may may be having some sort of hip surgery in the near future at [facility]. This will be with Remy Taylor MD - ortho at [facility]. I will send my note to the orthopedic surgeon. I am also happy to call to talk with the surgeon since Prasanna's thrombocytopenia could be a major issue, depending upon the type of surgery that is planned. In addition, he will likely need platelet transfusions and close monitoring of his CBC during and after his surgery for up to 7 days or so. We talked about this at length and caliber talking to the surgeon to review this. I will also send him a note and if the surgery is planned, I asked Prasanna to notify me since I would be happy to call the surgeon to review plans and potential issues that might arise. #. Thrombocytopenia -Platelet count down but stable -No spontaneous bleeding, excessive bruising or petechiae -, Will speak with his surgeon., Will either call us or have a surgeon call us to review plans moving forward before the surgery so that we have a plan in place and the surgeon is well aware of potential risk associated with this type of surgery and thrombocytopenia. -No indication for therapy at this time. -Again, I reviewed the potential etiologies of his thrombocytopenia. I emphasized that the large spleen is not associated with immune mediated thrombocytopenia as we are uncertain of the exact cause atthis point. I emphasized we do not pursue a work-up biopsy of the spleen due to increased risk of bleeding and we will not treat at this point anyway since his counts are stable. Of course, if there ruthann change in his clinical course his platelets continue to drop, then we will have to pursue CAT scans and possible biopsy of any abnormalities. -Prasanna will call in the interim with any clinical concerns including bleeding, bruising, petechiae -Follow-up in 6 months sooner with any clinical changes -I will send this note to Dr. Remy Taylor MD - ortho at [facility] MAIKEL BROOKE MD Hematology and Oncology ===== documented in this encounter Plan of Treatment Upcoming Encounters Date Type Specialty Care Team Description 09/06/2022 Appointment Hematology and Oncology 09/06/2022 Office Visit Hematology and Oncology Maikel Brooke MD [facility] [address] HEMATOLOGY/[place] [address] Norma Garrido APRN [facility] [address] [place]EMATOLOGY[place] [address] Marleen Reis MD [facility] [address] HEMATOLOGY/[place] [address] documented as of this encounter Procedures Procedure Name Priority Date/Time Associated Diagnosis Comme nts GREEN TUBE HOLD Routine 04/14/2020 8:11 AM Result s for this EDT procedure are i n the results section. HC VENIPUNCTURE STAT 04/14/2020 8:11 AM Idiopathic Result s for this EDT thrombocytopenic purpura procedure are in Stage 1 chronic kidney the r esults disease section. documented in this encounter Results Comprehensive metabolic panel (non-fasting) (10/13/2020 8:34 AM EST) athologist Signature Glucose Lvl 97 65 - 199 [facility] mg/dL [facility] Comment: Diabetes: >=200 mg/dL plus symp toms BUN 17 10 - 20 mg/dL [facility] Creatinine 1.06 0.80 - 1.50 mg/dL [facility] Sodium 140 135 - 145 mmol/L [facility] Potassium 4.5 3.5 - 5.0 mmol/L [facility] Comment: Please note: ??Patients with WBC >100,00 0 may have falsely elevated Potassium levels. ??For accurate Potassium quantif ication in these patients send serum separator tube (gold top) for subsequent determinations. ??Contact the Clinical Chemistry Laboratory if there are any qu estions. Chloride 103 98 - 107 mmol/L [facility] CO2 27 22 - 31 mmol/L [facility] Anion Gap 10 5 - 15 mmol/L [facility] Calcium 9.5 8.5 - 10.5 mg/dL [facility] Total Protein 7.1 6.1 - 8.0 gm/dL [facility] Albumin 4.6 3.2 - 5.2 gm/dL [facility] AST 32 0 - 39 unit/L [facility] ALT 41 0 - 55 unit/L [facility] Alk Phos 86 40 - 130 unit/L [facility] Total Bilirubin 0.5 0.2 - 1.3 mg/dL [facility] Estimated GFR 83 >=60 mL/min/1.73 m?? [facility] Comment: This patient? s estimated glomerular filtration rate (eGFR) is between 83 mL/min/1.73 m2 (patients with less muscl e mass per kg body weight) and 96 mL/min/1.73 m2 (patients with more muscl e mass per kg body weight) as determined by the CKD-EPI equation. Asse ssment of eGFR is not appropriate when creatinine concentrations are rapidly ch anging. For clinical decisions where creatinine clearance will affect therapy , a 24-hour urine creatinine clearance may be advised. Assignment of CKD stage 1 ? 5 for patients with an eGFR near the transition point between stages may be based on cli nical assessment of muscle mass and symptoms in addition to eGFR. Specimen Anatomical Collection Method Collection Time Receive d Time (Source) Location / / Volume Laterality Blood specimen 10/13/2020 8:34 AM 8:42 (specimen) EST AM EST Resulting Agency Comment Spec In Lab Maikel Brooke MD CHEMISTRY ORDERABLES Performing Organization Address City/[facility]/ZIP Code Phon e Number [address] Green Tube HOLD (04/14/2020 8:11 AM EDT) P athologist Signature Green Hold Sample in [facility]. [facility] Specimen Anatomical Collection Method Collection Time Receive d Time (Source) Location / / Volume Laterality Blood specimen No Charge / 04/14/2020 8:11 AM 8:24 (specimen) Unknown EDT AM EDT Maikel Brooke MD CHEMISTRY ORDERABLES Performing Organization Address City/[facility]/[place] [address] (ABNORMAL) Comprehensive metabolic panel (non-fasting) (04/14/2020 8:11 AM EDT) athologist Signature Glucose Lvl 93 65 - 199 [facility] mg/dL [facility] Comment: Diabetes: >=200 mg/dL plus symp toms BUN 25 (H) 10 - 20 mg/dL [facility] Creatinine 1.19 0.80 - 1.50 mg/dL [facility] Sodium 136 135 - 145 mmol/L [facility] Potassium 3.8 3.5 - 5.0 mmol/L [facility] Comment: Please note: ??Patients with WBC >100,00 0 may have falsely elevated Potassium levels. ??For accurate Potassium quantif ication in these patients send serum separator tube (gold top) for subsequent determinations. ??Contact the Clinical Chemistry Laboratory if there are any qu estions. Chloride 99 98 - 107 mmol/L [facility] CO2 25 22 - 31 mmol/L [facility] Anion Gap 12 5 - 15 mmol/L [facility] Calcium 8.8 8.5 - 10.5 mg/dL [facility] Total Protein 6.9 6.1 - 8.0 gm/dL [facility] Albumin 4.3 3.2 - 5.2 gm/dL [facility] AST 17 0 - 39 unit/L [facility] ALT 42 0 - 55 unit/L [facility] Alk Phos 75 40 - 130 unit/L [facility] Total Bilirubin 0.4 0.2 - 1.3 mg/dL [facility] Estimated GFR 72 >=60 mL/min/1.73 m?? [facility] Comment: The eGFR was calculated using the CKD-EP I equation. As with all creatinine based estimates of kidney function, eGFR values calculated with the CKD-EPI equation are not accurate in patients wi th acute kidney failure, extremes of body mass or the acutely ill. [email or web address] eGFR 84 >=60 mL/min/1.73 m?? [facility] Comment: The eGFR was calculated using the CKD-EP I equation. As with all creatinine based estimates of kidney function, eGFR values calculated with the CKD-EPI equation are not accurate in patients wi th acute kidney failure, extremes of body mass or the acutely ill. 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
--- OUTSIDE RECORDS SUMMARY | 2022-08-02 12:59 | XMS_ITS | Encounter Summary ---
:1970 Author Organization [facility] [place] [address] Care Team Providers Name Role Phone SanchoKurtis mcdaniel Primary Care Provider Reason for Visit Reason Comments Back Pain Consultation (Routine) - Closed Specialty Diagnoses / Procedures Referred By Contact Refer red To Contact Pain and Sp[facility] Center Diagnoses Low back pain PAIN: low back pain/ MRI (L) 05/15/18 @ Open MRI Stephen Roger MD Fichman, Bert L, MD [address] [place] [id number] [facility] [place], [place] [address] Phone: Fax: Referral ID Status Reason Start Date Expiration Date Visits Requ ested Visits Authorized [id number] Closed 08/29/2019 08/28/2020 1 1 Encounter Details Date Type Department Care Team Description 10/08/2019 Office Visit [facility] Tawnya Ash Fa iled back syndrome at [facility] MD of lumbar spine [address] [place] [facility] [id number] [place] [address] Social History Tobacco Use Types Packs/Day Years Used Date Never Smoker Smokeless Tobacco: Never Used Alcohol Use Standard Drinks/Week Comments Yes 0 (1 standard drink = 0.6 oz pure alcoho l) Sex Assigned at Date Recorded Not on file documented as of this encounter Last Filed Vital Signs Vital Sign Reading Time Taken Comments Blood Pressure 134/85 10/08/2019 12:49 PM EST Pulse 84 10/08/2019 12:49 PM EST Temperature - - Respiratory Rate - - Oxygen Saturation 99% 10/08/2019 12:49 PM EST Inhaled Oxygen Concentration - - Weight 95.3 kg (210 lb) 10/08/2019 12:49 PM EST Height 175.3 cm (5' 9) 10/08/2019 12:49 PM EST Body Mass Index 31.01 10/08/2019 12:49 PM EST documented in this encounter Progress Notes Thais Munroe R - 10/08/2019 1:00 PM EST [facility] [place] [address] Phone: PAIN MANAGEMENT CONSULTATION NOTE DATE OF VISIT 10/08/2019 Patient Prasanna Shipman 1970 REFERRING PROVIDER Stephen Roger MD [address] [place] [address] PRIMARY CARE PROVIDER Kurtis Kingsley DO CHIEF COMPLAINT: Prasanna Shipman is a 49 y.o.male with chronic history of back and flank pain , who is seen in consultation at the request of Stephen Roger MD [address] [place] [address]. for evaluation, recommendations, and management.The history is obtained from the patient, and I have reviewed medical records provided by the referring physician and located in the electronic medical record to fill in gaps in the patient's recollection of events, treatments and outcomes. HPI 49 yo male who is accompanied by his here for evaluation chronic low back pain. He has a notedhistory of lumbar spine surgery in 2012 and 2014 for his back pain with significant relief. He notesa recent exacerbation of his symptoms incurred after recreational basketball. He endorses difficultywith flexion and notes that his pain is primary along his right low back with radiation onto his right lower quadrant. He also reports occasional pain along his left low back with no radiation. He reports visiting a number of specialists including his prior spine surgeon, pain specialists at [facility] and a neurologist. He states that for interventions he underwent a number of right side image guided SI joint injections, CT guided Intra-articular injections and an intra-articular hip injection with no respite of his symptoms. In reference to medications, he states being given a recommendation for 1800 mg daily of Gabapentin.He reports being advised not to take that prescription after the advisement of his PCP. For now patient is encouraged that he has been focusing on strengthening his core at the gym with the help of a strainer cleaner. He reports losing 10-15 pounds recently with no substantial relief of his back pain. The patient also reports developing restless leg syndrome approximately 12 years ago after having episode of depression centering around his career and having to change his job. Overall the patient is frustrated and unclear as to what direction to go. Additionally reports: 1. 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 2. He notes a history of two umbilical hernias that need to be repaired. 3. He notes a history of restless leg syndrome syndrome -- he is currently on medication 4. He notes a history of depression after recent occupation change PAIN ASSESSMENT: Description: Knife, stabbing pain, in upper flank; radiates along flank and into right lower quadrant. 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 How do you spend your day? I am in the car a lot PAST THERAPIES: Acetaminophen:Yes NSAID: Yes Anticonvulsants: Yes Topicals: No Herbal supplements/vitamins:No Injections: SI Joint mediated Surgery: Lumbar spine surgery 2012 and 2014 Physical Therapy: Yes TENS: Yes Acupuncture:Yes Chiropractic: No Massage: Yes Other: CBD, deep needle massage REVIEW OF SYSTEMS: Constitutional: denies fever, chills, cough, signs of infection, weight changes, fatigue, intentional weight loss (10-14 HEENT: Denies headaches, blurry/limited vision, photophobia, difficulty hearing, Cardiac:denies chest pain or pressure, lower extremity edema, notes occasional chest palpitation, uses a training Lungs: denies SOB on exertion GI: denies constipation or diarrhea, black tarry stool, loss of control; : denies frequency, urgency, hesitation, or incontinence Neuro: denies dizziness, numbness, seizures, tremors Muscle skeletal: denies use of ambulatory aide, falls Skin: denies open sores or rashes Psychological/Mood: good Sleep: notes 6-8; no suicide of homicidal ideation RELEVANT SOCIAL HISTORY: Lives with: and 2 kids; 1 kid in college Smoking: none Alcohol: present and past: none Illegal/prescription drug misuse past/present: none Are you now or in past received methadone or suboxone (buprenorphine) for substance abuse? None Ever participated in drug or alcohol rehabilitation program? none Share your pain medications or accepted pain medications from family/friends? none History of incarceration? Medications 10/08/19 1249 Medication Sig Taking? cetirizine (ZYRTEC) 10 mg Tablet Yes PROAIR HFA 90 mcg/actuation HFA Aerosol Inhaler Indications: PRN Yes pramipexole (MIRAPEX) 1 mg Tablet 0.5 mg. Indications: pt states he is taking .5 mg Yes ADVERSE DRUG REACTIONS Allergies as of 10/08/2019 - Review Complete 10/08/2019 Allergen Reaction Noted ??? Pollen, micronized Itching 10/23/2011 MEDICAL HISTORY Past Medical History: Diagnosis Date ??? Allergy ??? asthma ??? prostatitis ??? restless leg SURGICAL HISTORY Past Surgical History: Procedure Laterality Date ??? CT GUIDED INJECTION SI JOINT 09/10/2018 CT Guided Injection SI Joint 09/10/2018 [facility] RAD CAT SCAN ??? CT GUIDED NERVE BLOCK LUMBAR SINGLE LEVEL 08/05/2019 CT Guided Nerve Block Lumbar Single Level 08/05/2019 [facility] RAD CAT SCAN ??? PRO UNLISTED PROCEDURE, MUSCULOSKELETAL SYSTEM, GENERAL Knee ??? PRO UNLISTED PX UR SYS June, Vasectomy FAMILY HISTORY Family History Problem Relation Age of Onset ??? Depression Maternal Uncle ??? High Blood Pressure Father PHYSICAL EXAMINATION Most Recent Vitals: 10/08/19 1249 BP: 134/85 Pulse: 84 SpO2: 99% PainSc: 3 Body mass index is 31.01 kg/m??. BP 134/85 Pulse 84 Ht 175.3 cm (5' 9) Wt 95.3 kg (210 lb) No flowsheet data found. Appearance/ Behavior Well groomed, good eye contact, relaxed, cooperative, normal speech, no acute distress, no involuntary movements Eyes Sclera anicteric, conjunctiva clear. ENT Hearing grossly intact Lungs CTA bilaterally Cardiovascular Reg RR without murmur, Skin No rash, asymmetric hair loss, bruises, scars, swelling Musckuloskeletal Inspection/Palpation/ Range of Motion/Facet Loading maneuvers Gait: nonantalgic Assistive device: none Heel, toe, heel to toe: no issues Inspection: good alignment, no excessive curvature, shoulder and hip levels equal bilaterally; no skin breakdown: NONE Palpation: no tenderness to palpation Neuro Motor Strength Segment Muscle Action Bilateral Results C5 Detoid Shoulder abduction 5/5 C5 Biceps Elbow flexion 5/5 C6 Extensor carpi radialis Wrist extension 5/5 C7 Triceps Elbow extension 5/5 C8, T1 Hand intrinsics Grasp 5/5 L2-5, S 1 Gluteus medius Hip Adduction 5/5 L4-5, S1 Gluteus medius Hip Abduction 5/5 L2 Iliopsoas Hip flexion 5/5 L3 Quadriceps Knee extension 5/5 L4 Tibialis anterior Ankle Dorsiflexion 5/5 L5 Extensor hallucis Great toe extension 5/5 S1 Gastrocnemius Ankle Plantar flexion 5/5 Reflexes: Segment Tendon Bilateral C5 Biceps 2+ C6 Brachioradialis 2+ C7 Triceps 2+ Upper Lin Neg L3-4 Patella 2+ S1 Ankle 2+ Clonus Neg Sensory Exam: No sensory deficits noted in cervical, thoracic, lumbar dermatomes ASSESSMENT Assessment No diagnosis found. In summary, Prasanna Shipman is a 49 yo male with a history of chronic low back pain in the setting of multiple lumbar surgeries, intra-articular facet injections and SI joint injections. His back pain appears primarily axial in nature with no radiculopathy symptoms. While his physical exam findings are not consistent with any facetogenic pain, I think it is reasonable to utilize a lumbar medial branch block at this time to assess as a diagnostic tool. PLAN/RECOMMENDATIONS #Consider Lumbar Medial branch blocks. We discussed the reasoning behind the diagnostic and therapeutic efficacy of a lumbar medial branch block. We explained that this would be more of a conservative plan for now. If his Lumbar medial branch blocks proves to be efficacious he would be a great candidate for lumbar radiofrequency ablation. We provided Mr. Shipman with literature on both LMBBs and LumbarRFA. #1. We also discussed the risks and benefits for a spinal cord stimulator if patient's symptoms prove refractory to Lumbar Radiofrequency ablation. We provided literature on the spinal cord stimulator.We explained we would first begin with a 7 day trial to assess for any modicum of relief. We also explained that he would require a MRI of his thoracic spine and a psychological evaluation prior to histrial. We used anatomical models to explain how the device works. We also explained not to expect 100% relief of his symptoms. We provided Mr. Shipman with literature on spinal cord stimulator devices from a number of companies. #2. Prior to any intervention we recommend that patient visit with Hematology for clearance as he has a history of ITP. #3. We had a long discussion about the both procedures noting that these were not going to cure his problems but potentially help relieve some of his pain. I thought it would be helpful for him to meetwith our new pain psychologist Dr. Lara Bravo. She was able to come in and briefly talk with him and set up an appointment to meet again. I think this will be helpful for him to sort out what his options are. Mr. Shipman agreed with our plans and would like to review the literature provided to decide his next course of action. Prasanna Shipman had the opportunity to ask questions and indicated that all questions were answered tohis satisfaction. I have seen the patient and reviewed the resident's above history and I agree with the details as written. I personally interviewed the patient and performed critical or nielsen elements of the physical examination as appropriate. The assessment and management plan were formulated in discussion with me and I agree with them as documented. TAWNYA ASH MD documented in this encounter Plan of Treatment Upcoming Encounters Date Type Specialty Care Team Description 09/06/2022 Appointment Hematology and Oncology 09/06/2022 Office Visit Hematology and Oncology Maikel Rebolledo MD [facility] HEMATOLOGY/[place] [address] Norma Garrido APRN [facility] HEMATOLOGY-[place] [address] Marleen Reis MD [facility] HEMATOLOGY/[place] [address] documented as of this encounter Visit Diagnoses Diagnosis Failed back syndrome of lumbar spine Postlaminectomy syndrome, lumbar region documented in this encounter Care Teams Hooker Operator Relationship Specialty Start Date End Date Kurtis Kingsley DO PCP - General 09/27/10 03/22/22 [address] [place] [address] documented as of this encounter
--- OUTSIDE RECORDS SUMMARY | 2022-08-02 12:59 | XMS_ITS | Encounter Summary ---
:1970 Author Organization [facility] [place] [address] Care Team Providers Name Role Phone SanchoKurtis mcdaniel Primary Care Provider Encounter Details Date Type Department Care Team Description 02/20/2018 Office Visit Hematology and Norma Alejandra, Thrombo cytopenia; Oncology at [facility] PRESS MANAGER Obesity, unspecified classification, uns pecified obesity type, unspecified whether serious comorbidity present; [facility] [address] [place] H[place]ATOLOGY[place]OG [address] Y DEPT. [phone] [place], [place] [address] Social History Tobacco Use Types Packs/Day Years Used Date Never Smoker Smokeless Tobacco: Never Used Alcohol Use Standard Drinks/Week Comments Yes 0 (1 standard drink = 0.6 oz pure alcoho l) Sex Assigned at Date Recorded Not on file documented as of this encounter Last Filed Vital Signs Vital Sign Reading Time Taken Comments Blood Pressure 138/75 02/20/2018 3:55 PM EDT Pulse 99 02/20/2018 3:55 PM EDT Temperature 36.4 ??C (97.5 ??F) 02/20/2018 3:55 PM EDT Respiratory Rate 18 02/20/2018 3:55 PM EDT Oxygen Saturation 96% 02/20/2018 3:55 PM EDT Inhaled Oxygen Concentration - - Weight 94.3 kg (208 lb) 02/20/2018 3:55 PM EDT Height 176.5 cm (5' 9.5) 02/20/2018 3:55 PM EDT Body Mass Index 30.28 02/20/2018 3:55 PM EDT documented in this encounter Progress Notes Norma Alejandra, SWATHI - 02/20/2018 4:00 PM EDT Images from the original note [...] today for follow-up of his ITP. He is accompanied by his son. Prasanna denies bleeding, bruising or petechiae. He is concerned about persistent left flank pain. Has been seeingDr. Kingsley who would like Prasanna to get some physical therapy and try to lose some weight. He has a long history of back pain and is s/p two surgeries. 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 No other medical issues. Remainder of ros neg. Review of systems: Constitutional: as above Eyes: [...] surgery Allergies: Pollen, micronized Medications: Current Outpatient Prescriptions on File Prior to Visit Medication Sig Dispense Refill ??? pramipexole (MIRAPEX) 1 mg Tablet 0.5 mg. Indications: pt states he is taking .5 mg ??? FEXOFENADINE HCL (DAVID ORAL) (Patient not taking: No sig reported) No current facility-administered medications on file prior to visit. 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 Family History: - Mother: was tested negative for PLT antigen 1; never had low plt count; - Father: htn, dlp - Siblings: brother and sister: both healthy; His sister also had low plt count at and was transfused; no issues now. Brother is a endless track vehicle supervisor at [place]. 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 Physical Exam: BP 138/75 (Patient Position: Sitting) Pulse 99 Temp 36.4 ??C (97.5 ??F) (Temporal) Resp 18 Ht 176.5 cm (5' 9.5) Wt 94.3 kg (208 lb) SpO2 96% BMI 30.28 kg/m2 GENERAL: Patient appears well and is in no acute distress. HEENT: NCAT . EOMI, PERRLA; anicteric, No conjunctival injection Sinuses non- tender. Oral pharynx isclear without erythema or exudate. NECK: Supple and without adenopathy or thyroid enlargement. CARDIAC: Regular rate and rhythm without S3, S4 or murmurs. LUNGS: Clear to auscultation bilaterally. No rales, rhonchi or wheezing. ABDOMEN: Tender to palpation of left area. No hepatosplenomegaly. EXTREMITIES: No edema, cyanosis or clubbing. SKIN: No rashes or lesions. No bruises or petechiae. LYMPHADENOPATHY: No abnormal lymphadenopathy. MUSCULOSKELETAL: No pain on palpation of sternum, ribs or vertebral bodies. NEUROLOGICAL: Alert and oriented to person, place and time. Labs: Recent Results (from the past 24 hour(s)) Comprehensive metabolic panel (non-fasting) Result Value Ref Range Glucose Lvl 141 65 - 199 mg/dL BUN 21 (H) 10 - 20 mg/dL Creatinine 1.21 0.80 - 1.50 mg/dL Sodium 138 135 - 145 mmol/L Potassium 3.8 3.5 - 5.0 mmol/L Chloride 99 98 - 107 mmol/L CO2 25 22 - 31 mmol/L Anion Gap 14 5 - 15 mmol/L Calcium 9.4 8.5 - 10.5 mg/dL Total Protein 7.4 6.1 - 8.0 gm/dL Albumin 4.7 3.2 - 5.2 gm/dL AST 22 0 - 39 unit/L ALT 46 0 - 55 unit/L Alk Phos 84 40 - 120 unit/L Total Bilirubin 0.5 0.2 - 1.3 mg/dL Estimated GFR >60 >=60 Hemogram Result Value Ref Range WBC 5.1 4.0 - 9.5 x10(3)/mcL RBC 5.73 (H) 4.58 - 5.54 x10(6)/mcL Hemoglobin 16.8 (H) 13.7 - 16.5 gm/dL Hematocrit 47.9 40.5 - 48.5 % MCV 83.6 82.9 - 93.1 fL MCH 29.3 27.5 - 32.1 pg MCHC 35.1 32.0 - 35.7 gm/dL Platelets 75 (L) 145 - 357 x10(3)/mcL RDWSD 37.3 36.0 - 45.0 fL RDWCV 12.3 11.4 - 13.8 % MPV 11.7 7.6 - 12.9 fL nRBC % Auto 0.0 % nRBC Abs Auto 0.000 0.000 - 0.000 x10(3)/mcL Differential, Automated Result Value Ref Range Neutrophils % 51.5 % Neutr Abs (ANC) 2.63 1.70 - 6.10 x10(3)/mcL Lymphocytes % 39.8 % Lymphocytes Abs 2.0 0.9 - 3.2 x10(3)/mcL Monocytes % 5.9 % Monocyte Abs 0.3 0.3 - 0.9 x10(3)/mcL Eosinophils % 1.6 % Eosinophils Abs 0.1 0.0 - 0.4 x10(3)/mcL Basophils % 0.6 % Basophils Abs 0.0 0.0 - 0.1 x10(3)/mcL Immature Gran % 0.60 % Cheli Gran Abs 0.03 0.00 - 0.04 x10(3)/mcL Radiology/Studies: None to review Assessment/Plan: 47 y/o M with presenting for evaluation of thrombocytopenia. His work up did not reveal any causative factor. Platelets remain stable. Prasanna would like to know why his spleen is enlarged and would liketo know how enlarged it is. He will continue to see Dr. Kingsley for his back issues. Talked with Prasanna about decreasing his carbohydrate intake and increase exercise as losing some weight might be helpful with his back pain. #. Thrombocytopenia -Platelet count stable -No complaints of bleeding / bruising / petechiae. -No indication for therapy at this time. -Routine health maintenance with Dr. Kingsley -Prasanna will call in the interim with any clinical concerns including bleeding, bruising, petechiae. I spoke with the radiologist at [facility] and asked him to measure Prasanna's spleen. It is 15.7 cm. Prasanna is aware. NORMA ALEJANDRA APRN Hematology and Oncology ------- documented in this encounter Plan of Treatment Upcoming Encounters Date Type Specialty Care Team Description 09/06/2022 Appointment Hematology and Oncology 09/06/2022 Office Visit Hematology and Oncology Maikel Rebolledo MD [facility] DR HEMATOLOGY/[place] [address] Norma Alejandra APRN [facility] [place]ATOLOG[place] [address] Marleen Reis MD [facility] DR [place]EMATOLOGY/[place] [address] documented as of this encounter Visit Diagnoses Diagnosis Thrombocytopenia Thrombocytopenia, unspecified Obesity, unspecified classification, uns pecified obesity type, unspecified whether serious comorbidity present Spleen enlarged Splenomegaly documented in this encounter Care Teams Automatic Operator Relationship Specialty Start Date End Date Kurtis Kingsley DO PCP - General 09/27/10 03/22/[address] [place] [address] [address] [place] [address] documented as of this encounter
--- OUTSIDE RECORDS SUMMARY | 2022-08-02 12:59 | XMS_ITS | Encounter Summary ---
:1970 Author Organization [facility] [place] [address] Care Team Providers Name Role Phone Kurtis Kingsley DO Primary Care Provider Reason for Visit Reason Onset Date Comments Questions 01/03/2021 COVID Dx Encounter Details Date Type Department Care Team Description 01/03/2021 Telephone Hematology and Oncology Sidra Hawkins R N Questions (COVID Dx) [place] [address] Social History Tobacco Use Types Packs/Day [...] this encounter Miscellaneous Notes Telephone Encounter - Sidra Hawkins RN - 01/03/2021 8:54 AM ESTSummary: Pt with positive COVID test Pt called for advice. He went to his PCP on 12/30 with symptoms he thought were an ear infection but his COVID test taken over the weekend was positive. The on-call MD he spoke to about that test result, when hearing about the pt's ITP, recommended an infusion. Pt was unclear what kind of infusion. Told him to find out and we'd be happy to weigh in butthat in general, as the pt is not on any active treatment for his ITP there is no contraindication to him following his PCP's advice regarding his COVID care and treatment. He called back, the recommendation is for monoclonal antibodies. Will ask his team. Telephone Encounter - Sidra Hawkins RN - 01/03/2021 8:47 AM EST ----- Message from Jenna Callejas sent at 01/03/2021 8:22 AM EST ----- Regarding: Amaury - Pt got COVID dx over the weekend Contact: Vincent Merida! Prasanna called, he was diagnosed with COVID 19 over the weekend. He says his local MD suggested he have an infusion at [facility]. He wasn't sure what the infusion was. Hewants to know if Saurabh agrees with their direction to have this infusion. Prasanna says they're going to call him to explain further. I asked him to confirm exactly what it is that they are recommending he have, and we can then absolutely weigh in on if this would be something Saurabh recommends or not. Please call Prasanna at [phone]. Thanks! Jennie documented in this encounter Plan of Treatment Upcoming Encounters Date Type Specialty Care Team Description 09/06/2022 Appointment Hematology and Oncology 09/06/2022 Office Visit Hematology and Oncology Maikel Rebolledo MD [facility] DR HEMATOLOGY/[place] [address] Norma Garrido APRN [facility] [address] [place]ATOLOGY[place] [address] Marleen Reis MD [facility] DR HEMATOLOGY/[place] [address] documented as of this encounter Visit Diagnoses Not on filedocumented in this encounter Care Teams Filter Press Tender Relationship Specialty Start Date End Date Kurtis Kingsley DO PCP - General 09/27/10 03/22/[address] [place] [address] documented as of this encounter
--- OUTSIDE RECORDS SUMMARY | 2022-08-02 12:59 | XMS_ITS | Encounter Summary ---
:1970 Author Organization [place] [address] Care Team Providers Name Role Phone Kurtis Kingsley Primary Care Provider Encounter Details Date Type Department Care Team Description 10/13/2019 Orders Only Hematology and Oncology Norma Garrido , Thrombocytopenia at [facility] [place] [address] HEMATOLOGY-ONCOLOGY [phone] DEPT. [place], [place] [address] (Wo rk) Social History Tobacco Use Types [...] Visit Hematology and Oncology Maikel Rebolledo MD [facility] HEMATOLOGY/[place] [address] Norma Garrido, [facility] HEMATOLOGY[place] [address] Marleen Reis MD [facility] HEMATOLOGY/[place] [address] documented as of this encounter Results (ABNORMAL) CBC (with Diff) (01/14/2020 8:05 AM EDT) [facility] gist Method Time Signature WBC 5.10 4.4 - 10.8 EXTERNAL LAB Hemoglobin 16.3 13.5 - EXTERNAL LAB 17.5 Hematocrit 47.2 40.0 - EXTERNAL LAB 50.0 Platelets 66 130 - 400 EXTERNAL LAB (EXTERNAL/ ABN) Neutr Abs (ANC) 2.29 1.2 - 6.7 EXTERNAL LAB Lymphocyte Abs 2.29 1.2 - 3.4 EXTERNAL LAB Specimen (Source) Anatomical Collection Method Collection Time Re ceived Time Location / / Volume Laterality Blood specimen 01/14/2020 8:05 AM (specimen) EDT Norma Garrido APRN HEMATOLOGY ORDERABLES Performing Organization Address City/State/ZIP Code Phon e Number EXTERNAL FACILITY EXTERNAL LAB documented in this encounter Visit Diagnoses Diagnosis Thrombocytopenia Thrombocytopenia, unspecified documented in this encounter Care Teams Electric Meter Tester Shop Relationship Specialty Start Date End Date Kurtis Kingsley DO PCP - General 09/27/10 03/22/[address] [place] [address] documented as of this encounter
--- OUTSIDE RECORDS SUMMARY | 2022-08-02 12:59 | XMS_ITS | Encounter Summary ---
:1970 Author Organization [facility] [place] [address] Care Team Providers Name Role Phone Kurtis Kingsley Primary Care Provider Reason for Visit Reason Comments Follow-up Encounter Details Date Type Department Care Team Description 08/28/2018 Office Visit Hematology and Oncology Maikel Rebolledo MD [facility] DR HEMATOLOGY/[place] [address] Thrombocytopenia at [facility] Norma Alejandra APRN [facility] DR HEMATOLOGY-[place] [address] [facility] [place] [address] Social History Tobacco Use Types Packs/Day Years Used Date Never Smoker Smokeless Tobacco: Never Used Alcohol Use Standard Drinks/Week Comments Yes 0 (1 standard drink = 0.6 oz pure alcoho l) Sex Assigned at Date Recorded Not on file documented as of this encounter Last Filed Vital Signs Vital Sign Reading Time Taken Comments Blood Pressure 136/86 08/28/2018 1:06 PM EDT Pulse 100 08/28/2018 1:06 PM EDT Temperature 36.3 ??C (97.3 ??F) 08/28/2018 1:06 PM EDT Respiratory Rate 18 08/28/2018 1:06 PM EDT Oxygen Saturation 96% 08/28/2018 1:06 PM EDT Inhaled Oxygen Concentration - - Weight 97.4 kg (214 lb 12.8 oz) 08/28/2018 1:06 PM EDT Height 177.3 cm (5' 9.8) 08/28/2018 1:06 PM EDT Body Mass Index 30.99 08/28/2018 1:06 PM EDT documented in this encounter Progress Notes Norma Alejandra, SWATHI - 08/28/2018 1:00 PM EDT Images from the original note [...] pain continues to be a real issue for:. He was started on high-dose gabapentin but shows not to take it due to the side effects. He is involved in a spinal clinic and is hopeful to get an injection or possibly surgery to help with his chronic back pain. He has not had any bleeding or excessive bruising. Review of systems: Constitutional: as above Eyes: [...] to visit. 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 Family History: - Mother: was tested negative for PLT antigen 1; never had low plt count; - Father: htn, dlp - Siblings: brother and sister: both healthy; His sister also had low plt count at and was transfused; no issues now. Brother is a depot agent at [employer]. 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 Physical Exam: BP 136/86 (Patient Position: Sitting) Pulse 100 Temp 36.3 ??C (97.3 ??F) (Temporal) Resp 18 Ht 177.3 cm (5' 9.8) Wt 97.4 kg (214 lb 12.8 oz) SpO2 96% BMI 30.99 kg/m?? GENERAL: Patient appears well and is [...] Recent Results (from the past 24 hour(s)) Hemogram Result Value Ref Range WBC 4.6 4.0 - 9.5 x10(3)/mcL RBC 5.43 4.58 - 5.54 x10(6)/mcL Hemoglobin 15.8 13.7 - 16.5 gm/dL Hematocrit 44.8 40.5 - 48.5 % MCV 82.5 (L) 82.9 - 93.1 fL MCH 29.1 27.5 - 32.1 pg MCHC 35.3 32.0 - 35.7 gm/dL Platelets 72 (L) 145 - 357 x10(3)/mcL RDWSD 37.7 36.0 - 45.0 fL RDWCV 12.5 11.4 - 13.8 % MPV 11.7 7.6 - 12.9 fL nRBC % Auto 0.0 % nRBC Abs Auto 0.000 0.000 - 0.000 x10(3)/mcL Differential, Automated Result Value Ref Range Neutrophils % 46.4 % Neutr Abs (ANC) 2.13 1.70 - 6.10 x10(3)/mcL Lymphocytes % 42.4 % Lymphocytes Abs 1.9 0.9 - 3.2 x10(3)/mcL Monocytes % 8.1 % Monocyte Abs 0.4 0.3 - 0.9 x10(3)/mcL Eosinophils % 2.2 % Eosinophils Abs 0.1 0.0 - 0.4 x10(3)/mcL Basophils % 0.7 % Basophils Abs 0.0 0.0 - 0.1 x10(3)/mcL Immature Gran % 0.20 % Cheli Gran Abs 0.01 0.00 - 0.04 x10(3)/mcL Radiology/Studies: None to review spleen. It is 15.7 cm from [facility] CT scan Assessment/Plan: 48 y/o M with presenting for evaluation of thrombocytopenia. His work up did not reveal any causative factor. Platelets remain stable. Call and has had knee and back surgery with low platelets without any issues with bleeding. #. Thrombocytopenia -Platelet count stable -No complaints of bleeding / bruising / petechiae. -No indication for therapy at this time. -Routine health maintenance with Dr. Kingsley -Prasanna will call in the interim with any clinical concerns including bleeding, bruising, petechiae -. Follow-up in spine center for chronic back pain I spoke with the radiologist at [facility] and asked him to measure Prasanna's . Prasanna is aware. NORMA ALEJANDRA APRN Hematology and Oncology ------- documented in this encounter Plan of Treatment Upcoming Encounters Date Type Specialty Care Team Description 09/06/2022 Appointment Hematology and Oncology 09/06/2022 Office Visit Hematology and Oncology Maikel Rebolledo MD [facility] DR HEMATOLOGY/[place] [address] [place] [address] Norma Alejandra APRN [facility] [address] HEMATOLOGY-[place] [address] Marleen Reis MD [facility] DR HEMATOLOGY/[place] [address] documented as of this encounter Results Basic Metabolic Panel (non-fasting) (08/28/2018 12:41 PM EDT) athologist Signature Glucose Lvl 106 65 - 199 [facility] mg/dL [facility] Comment: Diabetes: >=200 mg/dL plus symp toms BUN 16 10 - 20 mg/dL [facility] Creatinine 1.14 0.80 - 1.50 mg/dL [facility] Sodium 142 135 - 145 mmol/L [facility] Potassium 4.2 3.5 - 5.0 mmol/L [facility] Comment: Please note: ??Patients with WBC >100,00 0 may have falsely elevated Potassium levels. ??For accurate Potassium quantif ication in these patients send serum separator tube (gold top) for subsequent determinations. ??Contact the Clinical Chemistry Laboratory if there are any qu estions. Chloride 102 98 - 107 mmol/L [facility] CO2 27 22 - 31 mmol/L [facility] Anion Gap 13 5 - 15 mmol/L [facility] Calcium 9.7 8.5 - 10.5 mg/dL [facility] Estimated GFR 77 >=60 mL/min/1.73 m?? [facility] Comment: The eGFR was calculated using the CKD-EP I equation. As with all creatinine based estimates of kidney function, eGFR values calculated with the CKD-EPI equation are not accurate in patients wi th acute kidney failure, extremes of body mass or the acutely ill. http://[employer]/[facility] eGFR 89 >=60 mL/min/1.73 m?? [facility] Comment: The eGFR was calculated using the CKD-EP I equation. As with all creatinine based estimates of kidney function, eGFR values calculated with the CKD-EPI equation are not accurate in patients wi th acute kidney failure, extremes of body mass or the acutely ill. http://[employer]/[facility] Specimen Anatomical Collection Method Collection Time Receive d Time (Source) Location / / Volume Laterality Blood specimen 08/28/2018 12:41 8 1:08 (specimen) PM EDT PM EDT Resulting Agency Comment Spec In Lab Norma Alejandra APRN CHEMISTRY ORDERABLES Performing Organization Address City/State/[place] [address] documented in this encounter Visit Diagnoses Diagnosis Thrombocytopenia Thrombocytopenia, unspecified documented in this encounter Care Teams Dianetic Counselor Relationship Specialty Start Date End Date Kurtis Kingsley DO PCP - General 09/27/10 03/22/[address] [place] [address] documented as of this encounter
--- OUTSIDE RECORDS SUMMARY | 2022-08-02 12:59 | XMS_ITS | Encounter Summary ---
:1970 Author Organization [facility] [place] [address] Care Team Providers Name Role Phone SanchoKurtis mcdaniel Primary Care Provider Encounter Details Date Type Department Care Team Description 01/26/2020 External Results Hematology and Oncology Marissa Hughes Thrombocytopenia at [facility] [place] [address] Social History Tobacco Use Types Packs/Day [...] Visit Hematology and Oncology Maikel Rebolledo MD [facility] DR HEMATOLOGY/[place] [address] Norma Garrido APRN [facility] DR HEMATOLOGY-[place] [address] Marleen Reis MD [facility] HEMATOLOGY/[place] [address] documented as of this encounter Procedures Procedure Name Priority Date/Time Associated Diagnosis Comme nts CBC (WITH DIFF) STAT 01/14/2020 8:05 AM Thrombocytopenia Re sults for this EDT procedure are i n the results section. documented in this encounter Results (ABNORMAL) CBC (with Diff) (01/14/2020 8:05 AM EDT) [facility] gist Method Time Signature WBC 5.10 4.4 [...] 01/14/2020 8:05 AM (specimen) EDT Norma Garrido WAFFLE MACHINE OPERATOR HEMATOLOGY ORDERABLES Performing Organization Address City/State/ZIP Code Phon e Number EXTERNAL FACILITY EXTERNAL LAB documented in this encounter Visit Diagnoses Diagnosis Thrombocytopenia Thrombocytopenia, unspecified documented in this encounter Care Teams Advertising Operations Coordinator Relationship Specialty Start Date End Date Kurtis Kingsley DO PCP - General 09/27/10 03/22/[address] [place] [address] documented as of this encounter
--- OUTSIDE RECORDS SUMMARY | 2022-08-02 12:59 | XMS_ITS | Encounter Summary ---
:1970 Author Organization [facility] [place] [address] Care Team Providers Name Role Phone Kurtis Kingsley DO Primary Care Provider Reason for Visit Reason Onset Date Comments Follow-up 01/05/2021 Encounter Details Date Type Department Care Team Description 01/05/2021 Telephone Hematology and Oncol ogy at [facility] Sherly Bateman, [place] [address] Social History Tobacco Use Types Packs/Day [...] this encounter Miscellaneous Notes Telephone Encounter - Sherly Bateman, RN - 01/05/2021 11:25 AM EST F/U call to pt: Spoke to Prasanna to reassure him that there were no contraindications to monoclonal antibody treatmentif that is what his PCP recommends. He states that he had one-time infusion on 01/03/21. He continues to have sequelae from COVID, ear pressure and abnormal breathing. PCP is monitoring. Discussed contacting clinic office with further questions or concerns. RN will continue to follow. documented in this encounter Plan of Treatment Upcoming Encounters Date Type Specialty Care Team Description 09/06/2022 Appointment Hematology and Oncology 09/06/2022 Office Visit Hematology and Oncology Maikel Rebolledo MD [facility] DR HEMATOLOGY/[place] [address] Norma Garrido APRN [facility] DR HEMATOLOGY-[place] [address] Marleen Reis MD [facility] DR HEMATOLOGY/[place] [address] documented as of this encounter Visit Diagnoses Not on filedocumented in this encounter Care Teams Cadet Deck Relationship Specialty Start Date End Date Kurtis Kingsley DO PCP - General 09/27/10 03/22/[address] [place] [address] documented as of this encounter
--- OUTSIDE RECORDS SUMMARY | 2022-08-02 12:59 | XMS_ITS | Encounter Summary ---
:1970 Author Organization [facility] [place] [address] Care Team Providers Name Role Phone SanchoKurtis mcdaniel Primary Care Provider Encounter Details Date Type Department Care Team Description 11/21/2019 Telephone Pain and Spine Jenn heller [place] [facility] [place] [address] Social History Tobacco Use Types Packs/Day Years Used Date Never Smoker Smokeless Tobacco: Never Used Alcohol Use Standard Drinks/Week Comments Yes 0 (1 standard drink = 0.6 oz pure alcoho l) Sex Assigned at Date Recorded Not on file documented as of this encounter Miscellaneous Notes Telephone Encounter - Serina Rhodes - 11/21/2019 3:09 PM EST Left message for patient to call back [phone], option 2. He needs to be scheduled for a PSY Eval visit (60 minutes) with Dr. Bravo. He is being referred by Dr. Ash, but there is not a referral in the system - okay to schedule per . Appt note: Okay per DMP documented in this encounter Plan of Treatment Upcoming Encounters Date Type Specialty Care Team Description 09/06/2022 Appointment Hematology and Oncology 09/06/2022 Office Visit Hematology and Oncology Maikel Rebolledo MD [facility] DR HEMATOLOGY/[place] [address] Norma Garrido APRN [facility] [address] HEMATOLOGY-[place] [address] Marleen Reis MD [facility] DR HEMATOLOGY/[place] [address] documented as of this encounter Visit Diagnoses Not on filedocumented in this encounter Care Teams Chemical Recovery Operator Relationship Specialty Start Date End Date Kurtis Kingsley DO PCP - General 09/27/10 03/22/[address] [place] [address] documented as of this encounter
--- OUTSIDE RECORDS SUMMARY | 2022-08-02 12:59 | XMS_ITS | Encounter Summary ---
:1970 Author Organization [facility] [place] [address] Care Team Providers Name Role Phone Kurtis Kingsley Primary Care Provider Encounter Details Date Type Department Care Team Description 08/19/2019 Ancillary Procedure Radiology at [facility] Stephen Roger, [address] [place] [address] [address] [phone] NEUROSURGERY-[place], [place] [address] (Wo rk) Social History Tobacco Use Types [...] Hematology and Oncology Maikel Rebolledo MD [facility] DR HEMATOLOGY/[place] [address] Norma Garrido APRN [facility] [place] [address] Marleen Reis MD [facility] DR HEMATOLOGY/[place] [address] documented as of this encounter Procedures Procedure Name Priority Date/Time Associated Diagnosis Comme nts FILM LIBRARY Routine 08/19/2019 12:00 AM Results for this STORAGE ONLY MR EDT procedure ar e in SPINE the results section. documented in this encounter Results Film Library- Storage Only MR Spine (08/19/2019 12:00 AM EDT) Specimen (Source) Anatomical Location Collection Method / Collectio n Time Received Time / Laterality Volume Narrative LEVI ANGELES - 08/20/2019 1:21 PM EDT This exam is auto-finalizing. It's purpo se is for storage only. Stephen Roger MD IMG FILM LIBRARY ORDERABLES Performing Organization Address City/State/ZIP Code Phon e Number [facility] [place] documented in this encounter Visit Diagnoses Not on filedocumented in this encounter Care Teams Hot Cell Technician Relationship Specialty Start Date End Date Kurtis Kingsley DO PCP - General 09/27/10 03/22/[address] [place] [address] documented as of this encounter
--- OUTSIDE RECORDS SUMMARY | 2022-08-02 12:59 | XMS_ITS | Encounter Summary ---
:1970 Author Organization [facility] [place] [address] Care Team Providers Name Role Phone SanchoKrutis mcdaniel Primary Care Provider Encounter Details Date Type Department Care Team Description 12/10/2019 Office Visit [facility] Lara Bravo Fa iled back syndrome at [facility] PsyD of lumbar spine Formerly [facility] [address], [place], [place] [id number] [phone] Social History Tobacco Use Types Packs/Day Years Used Date Never Smoker Smokeless Tobacco: Never Used Alcohol Use Standard Drinks/Week Comments Yes 0 (1 standard drink = 0.6 oz pure alcoho l) Sex Assigned at Date Recorded Not on file documented as of this encounter Progress Notes Lara Bravo PsyD - 12/10/2019 8:30 AM EST BEHAVIORAL PAIN MANAGEMENT INITIAL APPOINTMENT Name: Prasanna Shipman Patient's age: 49 y.o. Date: Duration of appt: 60 minutes. SUMMARY 49 year old white male from [facility], with hx of failed back syndrome referred to behavioralpain management by Jefferson Ash MD for ongoing pain that has been poor to respond to treatment. Patient seen previously by this technical report writer as a warm handoff from Dr. Ash in October, and is seen today for an initial 60 minute appointment focused on an health and behavioral assessment. As part of today's assessment, Mr. Shipman completed the following self-report measures:: Pain Catastrophizing Scale (PCS), Pain Outcomes Questionnaire (POQ), and Patient Health Questionnaire (PHQ-9). Mr. Shipman engaged well with assessment and initial establishment of care. Due to his current stability and well-managed pain, he declined to begin treatment with U/S at this time. However he expressed his appreciation of today's appointment and I encouraged him to reach out to me any time in the future should he wish to meet again. DATA PAIN SUMMARY Prasanna presents as relatively euthymic, reporting an average level of pain of 2/10 over the past week, which he states only mildly interferes with his ability to walk, carry objects, and climb stairs. He does not use a cane or other assistive device. He reports no interference with his ability to bathe, dress, groom himself, and use the bathroom. He states that pain somewhat affects his self-esteem, and reports few concerns with depression (PHQ9 = 3), anxiety , tension, or problems with concentration. Prasanna reports that pain moderately limits his basic physical activities, and he has average levels of energy, strength, and endurance. He is rarely worried about re-injuring herself if he is more active, and believes it is very safe to exercise. Lastly, he reports a very low level of catastrophic thinking related to his pain, but does note some rumination (PCS = 12/52 ). Prasanna was screened for suicidal ideation and any history of suicidal behavior, which he denied. Primary Pain Concern at this time: No specific pain concern at this time. Patient stated, right now I feel good, I've lost weight, my pain is better. Attributes his pain reduction to weight loss, increased strength. He is working with a personal service representative and his exercise regimen includes a lot of core strengthening, cardio, strength and conditioning, and specific attention to proper movement. Reports some mild stabbing in his lower right back and numbness in his LE. Brief description of pain history: In 2012 stated that he injured his back while lifting heavy weights, which led to a bilateral fasciectomy done by [facility] Dr. Giselle Shin (pt reports strong respect and admiration for this provider.) Stated that he had been informed that his nerves needed room to flow through thefacet joint to relieve the sciatica (compression from lifting), This experience went on a for a period of time, met with several docs, the MRIs were not conclusive. Had surgery, out of work for six weeks, and but eventually the surgery helped a great deal. 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 This surgery was L4-L5, L5-S1. Again giselle shin. This surgery also helped. Couldn't be on his back for six weeks for recovery, had to have an active rehab. 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 This lasted for a while. Saw Dr. Shin again, who thought it wasS1 joint, sent to [facility]ames[facility], after reviewing MRIs, said not SI joint. Then to Dr. Taylor, and then it moved from left to right side. Couldn't walk. Couldn't get an MRI. They did a CT guided injection into SI joint, no relief. Can still feel it in his hip, second CT guided injection in his hip, paula. Another MRI, now thinking that it might be L4, so they did a facet injection for which did not work, and he was on his knees for 3 days. His provider said he didn't know, continued to see multiple providers, then he was returned to his primary care. this was a terrible time in my life, can't do anything. Can't mountain climb, can't ski, can't hike can't water ski. Began to feel depressed. Said his primary (Dr. Kingsley) had heart toheart talk to him, he was told that he was full of stenosis and arthritis. Was told he needs to make lifestyle changes. Told to go see Santiago MCKENNA - performance training in [place]. He has been there 7 months, working with a retail advisor, Down about 15 pounds, Goal is to get to under 200. Recently went on a cruise. On this trip, he kneeled on a paddle board for two hours, this aggravated his hip. Lots of stairs on the cruise ship, had to use elevator. Continues to experience some numbness in his legs. Due to patient's stability and lack of pain concerns at this time, the remaining interview was abbreviated. Treatment history: [xx ] Medications [xx] Physical Therapy [xx] Surgery [ ] Injections [ ] Other PAIN RATINGS (Scale 0-10) Current pain: 2/10 Lowest Pain: 0/10 - on vacation, before I tweaked my hip. Highest Pain: 4/10 - tweaked him Average Pain: 2/10 Level needed to feel functional: 6/10 Exacerbating factors: Stress is work related. Oldest son now in college. 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 A lot of his income goes to taxes and healthcare. CURRENT COPING SKILLS How do you try to cope with pain? [ ] Could not identify coping skills [ ] Rest [ ] Prayer [ ] Medication [ ] Distraction [xx ] Exercise [xx] Yoga/Lance Chi - pilates [ ] Relaxation / Meditation [ ] Other: Impact on mood / self-esteem: I'm usually pretty good. Takes care of the people around him, I am themost loving person I know. Current stressors: spending a lot of time frustrated and aggravated with work. Interviewing activelyfor another job. Primarily sleeps to manage stress; Focuses on work. Will go in the hot tub every night. 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 Lots of challenges as couple because Mahin is a challenge. Lots of psych history, loves his dearly. Other health concerns: underlying health concerns, ITP - immunothryopeia, low platelet counts - seesa Norma Garrido and Dr. Ash[place] them every few months. Always in the back of my mind. Not doing transfusions, I'm healthy, had some abdominal issues a few years ago, and they did a CT scan of abdomen and he had a larger spleen. There are some anomalies. ASSESSMENT Mr. Shipman appears to have a good understanding of the important role of exercise in managing chronicpain, and he also appears to understanding that managing his stress levels and other health conditions will be critical for managing his pain. He is stable at this time, and he should continue his personalized exercise training program. BEHAVIORAL OBSERVATIONS Presentation: Unaccompanied, on time; Alert, oriented x 3. Appearance: Clean, dressed neatly in casual clothing. Well-groomed. Behavior: Cooperative, appropriate, good eye contact. Pain Behavior: None noted Mood: Euthymic, stated good Affect: Congruent. SI/HI: Denied ideation, plan, or intent. Thought process: Linear, goal-directed, logical. No evidence of hallucinations, franck, or delusions. Speech: Normal rate, rhythm, volume. Judgment/Insight: Good. Diagnosis: Failed Back Syndrome TREATMENT RECOMMENDATION Continue with current self management program. PLAN: No additional follow up with this provider is planned at this time. documented in this encounter Plan of Treatment Upcoming Encounters Date Type Specialty Care Team Description 09/06/2022 Appointment Hematology and Oncology 09/06/2022 Office Visit Hematology and Oncology Maikel Rebolledo MD [facility] DR HEMATOLOGY/[place] [address] Norma Garrido APRN [facility] DR HEMATOLOGY[place] [address] Marleen Reis MD [facility] DR HEMATOLOGY/[place] [address] documented as of this encounter Visit Diagnoses Diagnosis Failed back syndrome of lumbar spine Postlaminectomy syndrome, lumbar region documented in this encounter Care Teams Survey Superintendent Relationship Specialty Start Date End Date Kurtis Kingsley DO PCP - General 09/27/10 03/22/[address] [place] [address] documented as of this encounter
--- OUTSIDE RECORDS SUMMARY | 2022-08-02 12:59 | XMS_ITS | Encounter Summary ---
:1970 Author Organization [facility] [place] [address] Care Team Providers Name Role Phone Kurtis Kingsley Primary Care Provider Encounter Details Date Type Department Care Team Description 05/17/2018 Ancillary Procedure Radiology Library at Yovany Iyer MD [facility] [place] [address] [place] [address] [phone] (Wo rk) Social History Tobacco Use Types [...] Hematology and Oncology Maikel Rebolledo MD [facility] DR HEMATOLOGY/[place] [address] Norma Garrido APRN [facility] HEMATOLOGY-[place] [address] Marleen Reis MD [facility] DR HEMATOLOGY/[place] [address] documented as of this encounter Procedures Procedure Name Priority Date/Time Associated Diagnosis Comme nts FILM LIBRARY Routine 05/17/2018 12:00 AM Results for this STORAGE ONLY MR EDT procedure ar e in SPINE the results section. documented in this encounter Results Film Library- Storage Only MR Spine (05/17/2018 12:00 AM EDT) Specimen (Source) Anatomical Location Collection Method / Collectio n Time Received Time / Laterality Volume Narrative LEVI ANGELES - 05/25/2020 11:24 AM EDT This exam is auto-finalizing. It's purpo se is for storage only. Christian Iyer MD IMGraciela FILM LIBRARY ORDERABLES Performing Organization Address City/State/ZIP Code Phon e Number [place], [place] documented in this encounter Visit Diagnoses Not on filedocumented in this encounter Care Teams Robotics Technician Relationship Specialty Start Date End Date Kurtis Kingsley DO PCP - General 09/27/10 03/22/[address] [place] [address] documented as of this encounter
--- OUTSIDE RECORDS SUMMARY | 2022-08-02 12:59 | XMS_ITS | Encounter Summary ---
:1970 Author Organization [facility] [place] [address] Care Team Providers Name Role Phone Kurtis Kingsley DO Primary Care Provider Encounter Details Date Type Department Care Team Description 07/27/2021 Hospital Encounter Hematology and Idiopat hic Oncology at [facility] [place] [address] Social History Tobacco Use Types Packs/Day Years [...] [facility] DR HEMATOLOGY/[place] [address] Norma Garrido APRN [facility] DR HEMATOLOGY-[place] [address] Marleen Reis MD [facility] HEMATOLOGY/[place] [address] documented as of this encounter Procedures Procedure Name Priority Date/Time Associated Diagnosis Comme nts HEMOGRAM STAT 07/27/2021 8:24 Idiopathic Results for this AM EDT thrombocytopenic procedure a re in purpura the results section. DIFFERENTIAL, STAT 07/27/2021 8:24 Idiopathic Results for this AUTOMATED AM EDT thrombocytopenic procedure a re in purpura the results section. HC VENIPUNCTURE STAT 07/27/2021 8:24 Idiopathic AM EDT thrombocytopenic purpura COMPREHENSIVE STAT 07/27/2021 8:24 Idiopathic Results for this METABOLIC PANEL AM EDT thrombocytopenic procedur e are in (NON-FASTING) purpura the results section. documented in this encounter Results (ABNORMAL) Differential, Automated (07/27/2021 8:24 AM EDT) athologist Signature Neutrophils % 44.3 % [facility] Neutr Abs (ANC) 2.43 1.70 - [facility] 6.10 [facility] x10(3)/[facility] LABORATORY Lymphocytes % 43.0 % [facility] Lymphocytes Abs 2.4 0.9 - 3.2 [facility] x10(3)/[facility] LABORATORY Monocytes % 8.9 % [facility] Monocyte Abs 0.5 0.3 - 0.9 [facility] x10(3)/[facility] LABORATORY Eosinophils % 2.0 % [facility] Eosinophils Abs 0.1 0.0 - 0.4 [facility] x10(3)/[facility] LABORATORY Basophils % 0.7 % [facility] Basophils Abs 0.0 0.0 - 0.1 [facility] x10(3)/[facility] LABORATORY Immature Gran % 1.10 % [facility] Comment: Immature granulocytes(IG's)percentage an d absolute count will include metamyelocytes, myelocytes, and promyelo cytes. Blood smears from CBCs yielding IG's will be scanned manually for concor dance. If this scan disagrees with the automated IG or if promyelocytes are not ed, a manual differential will be performed. Cheli Gran Abs 0.06 (H) 0.00 - 0.04 x10(3)/[facility] LABORATORY Specimen Anatomical Collection Method Collection Time Receive d Time (Source) Location / / Volume Laterality Blood 07/27/2021 8:24 AM 8:32 EDT AM EDT Resulting Agency Comment Spec In Lab Norma Garrido APRN HEMATOLOGY ORDERABLES Performing Organization Address City/State/ZIP [place] [address] (ABNORMAL) Hemogram (07/27/2021 8:24 AM EDT) Analysis Performed At Patho logist Time Signature WBC 5.5 4.0 - 9.5 [facility] x10(3)/[facility] LABORATORY RBC 5.59 (H) 4.58 - [facility] 5.54 [facility] x10(6)/[facility] LABORATORY Hemoglobin 16.0 13.7 - [facility] 16.[facility] gm/dL [facility] Hematocrit 46.[address] [facility] 48.5 % [facility] MCV 83.0 82.[address] - [facility] 93.1 fL [facility] MCH 28.6 27.5 - [facility] 32.1 pg [facility] MCHC 34.5 32.0 - [facility] 35.7 gm/dL [facility] Platelets 59 (L) 145 - 357 [facility] x10(3)/[facility] LABORATORY RDWSD 38.5 36.0 - [facility] 45.0 [facility] LABORATORY RDWCV 12.8 11.4 - [facility] 13.8 % [facility] MPV 11.4 7.6 - 12.9 [facility] LABORATORY nRBC % Auto 0.0 % [facility] nRBC Abs Auto 0.000 0.000 - [facility] 0.000 [facility] x10(3)/[facility] LABORATORY Specimen Anatomical Collection Method Collection Time Receive d Time (Source) Location / / Volume Laterality Blood 07/27/2021 8:24 AM 8:32 EDT AM EDT Resulting Agency Comment Spec In Lab Norma Garrido APRN HEMATOLOGY ORDERABLES Performing Organization Address City/State/[place] [address] Comprehensive metabolic panel (non-fasting) (07/27/2021 8:24 AM EDT) athologist Signature Glucose Lvl 102 65 - 199 [facility] mg/dL [facility] Comment: Diabetes: >=200 mg/dL plus symp toms BUN 20 10 - 20 mg/dL [facility] Creatinine 1.15 0.80 - 1.50 mg/dL [facility] Sodium 138 135 - 145 mmol/L [facility] Potassium 4.4 3.5 - 5.0 mmol/L [facility] Comment: Please note: ??Patients with WBC >100,00 0 may have falsely elevated Potassium levels. ??For accurate Potassium quantif ication in these patients send serum separator tube (gold top) for subsequent determinations. ??Contact the Clinical Chemistry Laboratory if there are any qu estions. Chloride 100 98 - 107 mmol/L [facility] CO2 27 22 - 31 mmol/L [facility] Anion Gap 11 5 - 15 mmol/L [facility] Calcium 9.4 8.5 - 10.5 mg/dL [facility] Total Protein 7.3 6.1 - 8.0 gm/dL [facility] Albumin 4.7 3.2 - 5.2 gm/dL [facility] AST 17 0 - 39 unit/L [facility] ALT 33 0 - 55 unit/L [facility] Alk Phos 84 40 - 130 unit/L [facility] Total Bilirubin 0.5 0.2 - 1.3 mg/dL [facility] Estimated GFR 75 >=60 mL/min/1.73 m?? [facility] Comment: This patient? 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
--- OUTSIDE RECORDS SUMMARY | 2022-08-02 12:59 | XMS_ITS | Encounter Summary ---
:1970 Author Organization [facility] Address [address] [place] [address] Care Team Providers Name Role Phone Kurtis Kingsley DO Primary Care Provider Reason for Visit Reason Onset Date Comments Bumped Appointment 03/28/2021 Patient wants to bum p out appointment from 04/14 Encounter Details Date Type Department Care Team Description 03/28/2021 Telephone Hematology and Oncology Sidra Hawkins B umped Appointment at [facility] RN (Patient wants to bump [facility] out appoi ntment from Drive 04/14) [place] [address] Social History Tobacco Use Types Packs/Day [...] Telephone Encounter - Sidra Hawkins RN - 03/28/2021 9:05 AM EDTSummary: Patient wants to delay appointment if appropriate Message received from patient via [employer] asking about the need for his appointment on 04/14/21 given his PLT count of 81K. RN reviewed chart: patient with Thrombocytopenia of unknown etiology, not requiring treatment even in the setting of a hip replacement, last seen in clinic ~6 months ago with planned 6 month RTC for CMP & CBC on 04/14/21. PLT had been 65K-67K. RN obtained labs from [facility], taken 03/22/21: BMP, CRP, and CBC w/Diff. Confirmed PLT 81K, only other CBC abnormality was elevated MPV 11.4. Only BMP abnormality was BUN 19. CRP elevated at 0.61. RN called to assess patient for bleeding events/medication use that may impact PLT count. Takes Ibuprofen rarely PRN for back aches s/p multiple surgeries, 800 mg once daily. He uses Tylenolfirst and only takes ibuprofen when pain remains after the extra strength Tylenol dose. Discussed trying 400 mg Ibuprofen 1st and if ineffective take the additional 400 mg, taking with food/milk to avoid GI upset. Prasanna denies bleeding gums, petechiae, nosebleeds, has headaches but r/t post COVID/stress. His post-COVID symptoms are: SIMMONS, tiredness/fatigue, forgetfulness. He followed up with his PCP at this office's recommendation and had these labs taken as part of this work up. He will continue to follow with PCP. He endorses bruising more easily recently (in the past few months), for example he currently has a bruise on his abdomen and he's not sure what caused it. RN told Prasanna she would discuss the above with Dr. Rebolledo and get back to him re: changing his appointment. Prasanna re-iterates he is willing to come in if Dr. Rebolledo feels he should, but if all that wasneeded were these labs then he'd like to delay and save the money for another time. documented in this encounter Plan of Treatment Upcoming Encounters Date Type Specialty Care Team Description 09/06/2022 Appointment Hematology and Oncology 09/06/2022 Office Visit Hematology and Oncology Maikel Rebolledo MD [facility] DR HEMATOLOGY/ONCOLOGY DEPT. [place], [place] [id number] Norma Garrido APRN [facility] DR HEMATOLOGY-[place] [address] Marleen Reis MD [facility] DR HEMATOLOGY/[place] [address] documented as of this encounter Visit Diagnoses Not on filedocumented in this encounter Care Teams Scrub Tech Relationship Specialty Start Date End Date Kurtis Kingsley DO PCP - General 09/27/10 03/22/[address] [place] [address] documented as of this encounter
--- OUTSIDE RECORDS SUMMARY | 2022-08-02 12:59 | XMS_ITS | Encounter Summary ---
:1970 Author Organization [facility] [place] [address] Care Team Providers Name Role Phone Kurtis Kingsley Primary Care Provider Reason for Visit Reason Comments Follow-up Encounter Details Date Type Department Care Team Description 10/08/2019 Office Visit Hematology and Maikel Rebolledo MD [facility] [address] HEMATOLOGY/[place] [address] Thrombocytopenia; [place] [facility] Norma Alejandra APRN [facility] [address] [place]ATOLOGY[place] [address] Chronic midline low [place] [address] Social History Tobacco Use Types Packs/Day Years Used Date Never Smoker Smokeless Tobacco: Never Used Alcohol Use Standard Drinks/Week Comments Yes 0 (1 standard drink = 0.6 oz pure alcoho l) Sex Assigned at Date Recorded Not on file documented as of this encounter Last Filed Vital Signs Vital Sign Reading Time Taken Comments Blood Pressure 129/85 10/08/2019 4:12 PM EST Pulse 87 10/08/2019 4:12 PM EST Temperature 36.8 ??C (98.2 ??F) 10/08/2019 4:12 PM EST Respiratory Rate 18 10/08/2019 4:12 PM EST Oxygen Saturation 98% 10/08/2019 4:12 PM EST Inhaled Oxygen Concentration - - Weight 97.4 kg (214 lb 12.8 oz) 10/08/2019 4:12 PM EST Height 175.5 cm (5' 9.09) 10/08/2019 4:12 PM EST Body Mass Index 31.63 10/08/2019 4:12 PM EST documented in this encounter Progress Notes Norma Alejandra, SWATHI - 10/08/2019 4:00 PM EST Images from the original note were [...] to clinic today for follow-up of his ITP he is accompanied by his . Prasanna reports that for a number of months now he has been experiencing intermittent chest pressure. His has encouraged him to be seen for this but he has not done so. It is nonradiating. He does not note anyrapid or irregular heartbeat. Over the past year Anthony has started making exercise and nutrition a priority and he has been able to lose some weight. He is still under a significant amount of stress with his job. Chronic back pain is unchanged No issues with bleeding or excessive bruising [...] states he is taking .5 mg ??? cetirizine (ZYRTEC) 10 mg Tablet ??? PROAIR HFA 90 mcg/actuation HFA Aerosol Inhaler Indications: PRN 1 No current facility-administered medications on file prior to visit. 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 Family History: - Mother: was tested negative for PLT antigen 1; never had low plt count; - Father: htn, dlp - Siblings: brother and sister: both healthy; His sister also had low plt count at and was transfused; no issues now. Brother is a dynamic etching processor at [employer]. 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 Physical Exam: BP 129/85 (Patient Position: Sitting) Pulse 87 Temp 36.8 ??C (98.2 ??F) (Temporal) Resp 18 Ht 175.5 cm (5' 9.09) Wt 97.4 kg (214 lb 12.8 oz) SpO2 98% BMI 31.63 kg/m?? GENERAL: Patient appears well and is [...] oriented to person, place and time. Labs: Ref. Range 10/08/2019 15:10 WBC Latest Ref Range: 4.0 - 9.5 x10(3)/mcL 5.2 RBC Latest Ref Range: 4.58 - 5.54 x10(6)/mcL 5.73 (H) Hemoglobin Latest Ref Range: 13.7 - 16.5 gm/dL 16.6 (H) Hematocrit Latest Ref Range: 40.5 - 48.5 % 47.8 MCV Latest Ref Range: 82.9 - 93.1 fL 83.4 MCH Latest Ref Range: 27.5 - 32.1 pg 29.0 MCHC Latest Ref Range: 32.0 - 35.7 gm/dL 34.7 RDWSD Latest Ref Range: 36.0 - 45.0 fL 38.9 RDWCV Latest Ref Range: 11.4 - 13.8 % 12.9 Platelets Latest Ref Range: 145 - 357 x10(3)/mcL 67 (L) MPV Latest Ref Range: 7.6 - 12.9 fL 11.7 nRBC % Auto Latest Units: % 0.0 nRBC Abs Auto Latest Ref Range: 0.000 - 0.000 x10(3)/mcL 0.000 Neutr Abs (ANC) Latest Ref Range: 1.70 - 6.10 x10(3)/mcL 2.70 Neutrophils % Latest Units: % 52.4 Immature Gran % Latest Units: % 0.60 Lymphocytes % Latest Units: % 36.4 Monocytes % Latest Units: % 8.1 Eosinophils % Latest Units: % 1.9 Basophils % Latest Units: % 0.6 Cheli Gran Abs Latest Ref Range: 0.00 - 0.04 x10(3)/mcL 0.03 Lymphocytes Abs Latest Ref Range: 0.9 - 3.2 x10(3)/mcL 1.9 Monocyte Abs Latest Ref Range: 0.3 - 0.9 x10(3)/mcL 0.4 Eosinophils Abs Latest Ref Range: 0.0 - 0.4 x10(3)/mcL 0.1 Basophils Abs Latest Ref Range: 0.0 - 0.1 x10(3)/mcL 0.0 Sodium Latest Ref Range: 135 - 145 mmol/L 139 Potassium Latest Ref Range: 3.5 - 5.0 mmol/L 4.1 Chloride Latest Ref Range: 98 - 107 mmol/L 102 CO2 Latest Ref Range: 22 - 31 mmol/L 25 Anion Gap Latest Ref Range: 5 - 15 mmol/L 12 BUN Latest Ref Range: 10 - 20 mg/dL 16 Creatinine Latest Ref Range: 0.80 - 1.50 mg/dL 1.17 eGFR Latest Ref Range: >=60 mL/min/1.73 m?? 74 eGFR Latest Ref Range: >=60 mL/min/1.73 m?? 86 Glucose Lvl Latest Ref Range: 65 - 199 mg/dL 118 Calcium Latest Ref Range: 8.5 - 10.5 mg/dL 9.5 Total Protein Latest Ref Range: 6.1 - 8.0 gm/dL 7.6 Albumin Latest Ref Range: 3.2 - 5.2 gm/dL 4.6 Total Bilirubin Latest Ref Range: 0.2 - 1.3 mg/dL 0.5 Alk Phos Latest Ref Range: 40 - 130 unit/L 75 AST Latest Ref Range: 0 - 39 unit/L 23 ALT Latest Ref Range: 0 - 55 unit/L 36 Radiology/Studies: None to review spleen. It is 15.7 cm from [facility] CT scan Assessment/Plan: 49 y/o M with presenting for evaluation of thrombocytopenia. His work up did not reveal any causative factor. Platelets remain stable. Prasanna has had knee and back surgery with low platelets without anyissues with bleeding. #. Thrombocytopenia -Platelet count down today -No spontaneous bleeding, excessive bruising or petechiae -Recommend a repeat his CBC locally in 3 months -No indication for therapy at this time. -I asked Prasanna to make an appointment to be seen by Dr. Dr. Kingsley for follow-up of his chest discomfort -Recommended a return to neurosurgery for further discussion of back pain -Prasanna will call in the interim with any clinical concerns including bleeding, bruising, petechiae -Follow-up in 6 months sooner with any clinical changes NORMA ALEJANDRA APRN Hematology and Oncology documented in this encounter Plan of Treatment Upcoming Encounters Date Type Specialty Care Team Description 09/06/2022 Appointment Hematology and Oncology 09/06/2022 Office Visit Hematology and Oncology Maikel Rebolledo MD [facility] HEMATOLOGY/[place] [address] Norma Alejandra APRN [facility] [address] [place]ATOLOG[place] [address] Marleen Reis MD [facility] [address] HEMATOLOGY/ONCOLOGY [place], [place] [id number] documented as of this encounter Visit Diagnoses Diagnosis Thrombocytopenia Thrombocytopenia, unspecified Chronic midline low back pain without sc iatica documented in this encounter Care Teams Website Developer Relationship Specialty Start Date End Date Kurtis Kingsley DO PCP - General 09/27/10 03/22/[address] [place] [address] documented as of this encounter
--- OUTSIDE RECORDS SUMMARY | 2022-08-02 12:59 | XMS_ITS | Encounter Summary ---
:1970 Author Organization [facility] [place] [address] Care Team Providers Name Role Phone SanchoKurtis Primary Care Provider Reason for Referral Diagnostic Test (Routine) - Closed Specialty Diagnoses / Procedures Referred By Contact Refer red To Contact Radiology Diagnoses Pain of right sacroiliac joint Right low back pain, unspecified chronicity, with sciatica presence unspecified Stephen Roger MD [facility] Rad Ct Scan Procedures CT Guided Injection SI Joint [address] [place], [place] [id number] [place] [id number] Referral ID Status Reason Start Date Expiration Date Visits V isits Requested Authorized [id number] Closed Specialty 08/09/2018 08/09/2019 1 1 Service Requested Reason for Visit Diagnostic Test (Routine) - Closed Specialty Diagnoses / Procedures Referred By Contact Refer red To Contact Radiology Diagnoses Pain of right sacroiliac joint Right low back pain, unspecified chronicity, with sciatica presence unspecified Stephen Roger MD [facility] Rad Ct Scan Procedures CT Guided Injection SI Joint [address] [place] [address] [place] [address] Referral ID Status Reason Start Date Expiration Date Visits V isits Requested Authorized [id number] Closed Specialty 08/09/2018 08/09/2019 1 1 Service Requested Encounter Details Date Type Department Care Team Description 09/10/[address] Scan [place] [facility] Roger, Pain of right sacroiliac so nt; [facility] MD Stephen Right low back pain, unspecified chronic ity, with sciatica presence unspecified [address] [place] [address] [phone] Social History Tobacco Use Types Packs/Day Years [...] Oncology Maikel Rebolledo MD [facility] DR HEMATOLOGY/[place] [address] Norma Garrido [address]N [facility] [address] HEMATOLOGY-[place] [address] Marleen Reis MD [facility] DR HEMATOLOGY/[place] [address] documented as of this encounter Procedures Procedure Name Priority Date/Time Associated Diagnosis Comme nts CT GUIDED INJECTION Routine 09/10/2018 12:48 PM Pain of right Results for this SI JOINT EST sacroiliac joint procedure are in Right low back pain, the res ults unspecified section. chronicity, with sciatica presence unspecified documented in this encounter Results CT Guided Injection SI Joint (09/10/2018 12:48 PM EST) Anatomical Region Laterality Modality Computed Tomography Specimen (Source) Anatomical Location Collection Method / Collectio n Time Received Time / Laterality Volume Impressions 09/10/2018 5:[address]-guided right sacroiliac joint anesthetic and steroid injection. Operators: Fellow: Dario Carrasquillo DO Attending: Saud Vasquez MD Procedure/Teaching Attestation: I was pr esent for the entire procedure. Preliminary report signed by: Dario mckeon at 09/10/2018 4:19 PM I have personally reviewed the image(s) and the residents interpretation and agree with the findings, Saud Vasquez at 1 11/10/2017 5:07 PM Narrative 09/10/2018 5:07 PM EST NEURORADIOLOGY PROCEDURE NOTE PROCEDURE: CT-Guided Sacroiliac Joint In jection CLINICAL HISTORY: Right sacroiliac joint injection with anesthetic and steroid COMPARISON: CT abdomen and pelvis 018. TECHNIQUE: The risks and benefits of the procedure were discussed with the patient, and written informed consent was obtained. P rior to beginning the procedure, a standard time out was performed. The pat ient was positioned prone on the CT table, and noncontrast images of the sac rum were obtained. ??An appropriate level and access path were chosen. ??The skin was then marked, prepped and draped in the usual sterile fashion. 1% lidocaine used for local anesthesia. ?? With intermittent CT fluoroscopic guidan ce, a 20-gauge spinal needle was advanced into the right sacroiliac joint . Positioning of the was confirmed by injection of a small amount of Omnipaque 300 contrast. 2 mL of 0.5% bupivacaine mixed with 1 mL (80 mg) of Depo-Medrol w as injected into the SI joint. ??The needle was removed and a sterile bandage was placed. The patient tolerated the procedure well without immediate complic ations. ?? FINDINGS: Preprocedure pain: 4/10 Postprocedure pain: 4/10 ?? Procedure Note Saud Vasquez MD - 09/10/2018 NEURORADIOLOGY PROCEDURE NOTE PROCEDURE: CT-Guided Sacroiliac Joint In jection CLINICAL HISTORY: Right sacroiliac joint injection with anesthetic and steroid COMPARISON: CT abdomen and pelvis 018. TECHNIQUE: The risks and benefits of the procedure were discussed with the patient, and written informed consent was obtained. P rior to beginning the procedure, a standard time out was performed. The pat ient was positioned prone on the CT table, and noncontrast images of the sac rum were obtained. An appropriate level and access path were chosen. The skin wa s then marked, prepped and draped in the usual sterile fashion. 1% lidocaine used for local anesthesia. With intermittent CT fluoroscopic guidan ce, a 20-gauge spinal needle was advanced into the right sacroiliac joint . Positioning of the was confirmed by injection of a small amount of Omnipaque 300 contrast. 2 mL of 0.5% bupivacaine mixed with 1 mL (80 mg) of Depo-Medrol w as injected into the SI joint. The needle was removed and a sterile bandage was placed. The patient tolerated the procedure well without immediate complic ations. FINDINGS: Preprocedure pain: 4/10 Postprocedure pain: 4/[address]-guided right sacroiliac veronica int anesthetic and steroid injection. Operators: Fellow: Dario Carrasquillo DO Attending: Saud Vasquez MD Procedure/Teaching Attestation: I was pr esent for the entire procedure. Preliminary report signed by: Dario mckeon at 09/10/2018 4:19 PM I have personally reviewed the image(s) and the residents interpretation and agree with the findings, Saud Vasquez at 1 11/10/2017 5:07 PM Stephen Roger MD IMG CT ORDERABLES documented in this encounter Visit Diagnoses Diagnosis Pain of right sacroiliac joint Disorders of sacrum Right low back pain, unspecified chronic ity, with sciatica presence unspecified documented in this encounter Care Teams Pc Tech Relationship Specialty Start Date End Date Kurtis Kingsley DO PCP - General 09/27/10 03/22/[address] [place] [address] documented as of this encounter
--- OUTSIDE RECORDS SUMMARY | 2022-08-02 12:59 | XMS_ITS | Encounter Summary ---
:1970 Author Organization [facility] [place] [address] Care Team Providers Name Role Phone Kurtis Kingsley Primary Care Provider Encounter Details Date Type Department Care Team Description 04/08/2020 Ancillary Procedure Radiology Library at Yovany Iyer MD [facility] [place] [address] [place] [address] [phone] (Wo rk) Social History Tobacco Use Types [...] Visit Hematology and Oncology Maikel Rebolledo MD [facility] DR HEMATOLOGY/[place] [address] Norma Garrido APRN [facility] DR [place]EMATOLOGY[place] [address] Marleen Reis MD [facility] DR HEMATOLOGY/[place] [address] documented as of this encounter Procedures Procedure Name Priority Date/Time Associated Diagnosis Comme nts FILM LIBRARY Routine 04/08/2020 12:00 AM Results for this STORAGE ONLY DX HIP EDT procedur e are in the results section. documented in this encounter Results Film Library- Storage Only DX Hip (04/08/2020 12:00 AM EDT) Specimen (Source) Anatomical Location Collection Method / Collectio n Time Received Time / Laterality Volume Narrative BRIDGETTE - 05/24/2020 8:45 PM EDT This exam is auto-finalizing. It's purpo se is for storage only. Christian Iyer MD IMGraciela FILM LIBRARY ORDERABLES Performing Organization Address City/State/ZIP Code Phon e Number [place], [place] documented in this encounter Visit Diagnoses Not on filedocumented in this encounter Care Teams Trading Manager Relationship Specialty Start Date End Date Kurtis Kingsley DO PCP - General 09/27/10 03/22/[address] [place] [address] documented as of this encounter
--- OUTSIDE RECORDS SUMMARY | 2022-08-02 12:59 | XMS_ITS | Encounter Summary ---
:1970 Author Organization [facility] [place] [address] Care Team Providers Name Role Phone Kurtis Kingsley Primary Care Provider Encounter Details Date Type Department Care Team Description 02/19/2019 Ancillary Procedure Radiology Library at Yovany Young MD [facility] [place] [address] [place] [address] [phone] (Wo rk) Social History Tobacco Use Types [...] [facility] DR HEMATOLOGY/[place] [address] Norma Garrido APRN [facility] HEMATOLOGY[place] [address] Marleen Reis MD [facility] DR HEMATOLOGY/[place] [address] documented as of this encounter Procedures Procedure Name Priority Date/Time Associated Diagnosis Comme nts FILM LIBRARY Routine 02/19/2019 12:00 AM Results for this STORAGE ONLY DX EDT procedure ar e in WRIST the results section. documented in this encounter Results Film Library- Storage Only DX Wrist (02/19/2019 12:00 AM EDT) Specimen (Source) Anatomical Location Collection Method / Collectio n Time Received Time / Laterality Volume Narrative LEVI ANGELES - 03/14/2019 1:03 PM EDT This exam is auto-finalizing. It's purpo se is for storage only. Aki Young MD IMGraciela FILM LIBRARY ORDERABLES Performing Organization Address City/State/ZIP Code Phon e Number [place], [place] documented in this encounter Visit Diagnoses Not on filedocumented in this encounter Care Teams Administrative Services Manager Relationship Specialty Start Date End Date Kurtis Kingsley DO PCP - General 09/27/10 03/22/[address] [place] [address] documented as of this encounter
--- OUTSIDE RECORDS SUMMARY | 2022-08-02 12:59 | XMS_ITS | Encounter Summary ---
:1970 Author Organization [facility] [place] [address] Care Team Providers Name Role Phone SanchoKurtis mcdaniel Primary Care Provider Encounter Details Date Type Department Care Team Description 04/14/2020 Hospital Encounter Hematology and Idiopat [place]ic [place]cology [place] [facility] [place] [address] Social History Tobacco Use Types Packs/Day Years Used Date Never Smoker Smokeless Tobacco: Never Used Alcohol Use Standard Drinks/Week Comments Yes 0 (1 standard drink = 0.6 oz pure alcoho l) Sex Assigned at Date Recorded Not on file documented as of this encounter Medications at Time of Discharge Medication Sig Dispensed Refills Start Date End Date multivitamin Tablet, Take by mouth. 0 Chewable [...] Visit Hematology and Oncology Maikel Rebolledo MD [facility] HEMATOLOGY/[place] [address] Norma Garrido APRN [facility] DR HEMATOLOGY-[place] [address] Marleen Reis MD [facility] DR HEMATOLOGY/[place] [address] documented as of this encounter Procedures Procedure Name Priority Date/Time Associated Diagnosis Comme nts HEMOGRAM STAT 04/14/2020 8:11 Idiopathic Results for this AM EDT thrombocytopenic purpura pro cedure are in the results section. DIFFERENTIAL, STAT 04/14/2020 8:11 Idiopathic Results for this AUTOMATED AM EDT thrombocytopenic purpura pro cedure are in the results section. HC CBC,PLT & AUTO STAT 04/14/2020 8:11 Idiopathic DIFF AM EDT thrombocytopenic purpura documented in this encounter Results (ABNORMAL) Differential, Automated (04/14/2020 8:11 AM EDT) athologist Signature Neutrophils % 47.3 % [facility] Neutr Abs (ANC) 2.80 1.70 - [facility] 6.10 [facility] x10(3)/[facility] LABORATORY Lymphocytes % 38.4 % [facility] Lymphocytes Abs 2.3 0.9 - 3.2 [facility] x10(3)/[facility] LABORATORY Monocytes % 8.9 % [facility] Monocyte Abs 0.5 0.3 - 0.9 [facility] x10(3)/[facility] LABORATORY Eosinophils % 2.2 % [facility] Eosinophils Abs 0.1 0.0 - 0.4 [facility] x10(3)/[facility] LABORATORY Basophils % 0.7 % [facility] Basophils Abs 0.0 0.0 - 0.1 [facility] x10(3)/[facility] LABORATORY Immature Gran % 2.50 % [facility] Comment: Immature granulocytes(IG's)percentage an d absolute count will include metamyelocytes, myelocytes, and promyelo cytes. Blood smears from CBCs yielding IG's will be scanned manually for concor dance. If this scan disagrees with the automated IG or if promyelocytes are not ed, a manual differential will be performed. Cheli Gran Abs 0.15 (H) 0.00 - 0.04 x10(3)/[facility] LABORATORY Specimen Anatomical Collection Method Collection Time Receive d Time (Source) Location / / Volume Laterality Blood specimen 04/14/2020 8:11 AM 020 8:24 (specimen) EDT AM EDT Resulting Agency Comment Spec In Lab Maikel Rebolledo MD HEMATOLOGY ORDERABLES Performing Organization Address City/State/[place] [address] (ABNORMAL) Hemogram (04/14/2020 8:11 AM EDT) P athologist Signature WBC 5.9 4.0 - 9.5 [facility] x10(3)/[facility] LABORATORY RBC 5.53 4.58 - [facility] 5[facility] x10(6)/[facility]ORATORY Hemoglobin 16.2 13.7 - [facility] gm/dL [facility] Hematocrit 46.5 40.5 - [facility] OVIDIO 48.5 % [facility] MCV 84.1 82.9 - [facility] 93[facility]1 [facility] LABORAT[facility] MCH 29.3 27.5 - [facility] 32.1 pg [facility] MCHC 34.8 32.0 - [facility] 35.7 gm/dL [facility] Platelets 67 (L) 145 - 357 [facility] x10(3)/[facility] LABORATORY RDWSD 38.1 36.0 - [facility] 45.0 [facility] LABORATORY RDWCV 12.7 11.4 - [facility] OVIDIO 13.8 % [facility] MPV 11.5 7.6 - 12.9 [facility] LABORATORY nRBC % Auto 0.0 % [facility] nRBC Abs Auto 0.000 0.000 - [facility] [employer] 0.000 [facility] x10(3)/[facility] LABORATORY Specimen Anatomical Collection Method Collection Time Receive d Time (Source) Location / / Volume Laterality Blood specimen 04/14/2020 8:11 AM 020 8:24 (specimen) EDT AM EDT Resulting Agency Comment Spec In Lab Maikel Rebolledo MD HEMATOLOGY ORDERABLES Performing Organization Address City/State/ZIP Code Phon e Number [place] [phone] documented in this encounter Visit Diagnoses Diagnosis Idiopathic thrombocytopenic purpura Immune thrombocytopenic purpura documented in this encounter Care Teams Detention Deputy Relationship Specialty Start Date End Date Kurtis Kingsley DO PCP - General 09/27/10 03/22/[address] [place] [address] documented as of this encounter
--- OUTSIDE RECORDS SUMMARY | 2022-08-02 12:59 | XMS_ITS | Encounter Summary ---
:1970 Author Organization [facility] [place] [address] Care Team Providers Name Role Phone SanchoKurtis mcdaniel Primary Care Provider Reason for Visit Reason Comments Follow-up Encounter Details Date Type Department Care Team Description 07/27/2021 Office Visit Hematology and Maikel Brooke MD [facility] DR HEMATOLOGY/[place] [address] Idiopathic thrombocytopenic purpura; Oncology at [facility] Norma Garrido APRN [facility] DR HEMATOLOGY-[place] [address] Stage 1 chronic kidney disease; [place] [id number] Social History Tobacco Use Types Packs/Day Years [...] Sign Reading Time Taken Comments Blood Pressure 132/88 07/27/2021 9:21 AM EDT Pulse 88 07/27/2021 9:21 AM EDT Temperature 36.4 ??C (97.5 ??F) 07/27/2021 9:21 AM EDT Respiratory Rate 22 07/27/2021 9:21 AM EDT Oxygen Saturation 98% 07/27/2021 9:21 AM EDT Inhaled Oxygen Concentration - - Weight 101.1 kg (222 lb 12.8 07/27/2021 9:21 AM with sh oes oz) EDT Height 178.2 cm (5' 10.16) 07/27/2021 9:21 AM with daljit es EDT Body Mass Index 31.83 07/27/2021 9:21 AM EDT documented in this encounter Progress Notes Maikel Brooke MD - 07/27/2021 9:30 AM EDT Images from the original note were not included. Attending Physician: Referring physician: Kurtis Durbin Reason for f/up: Thrombocytopenia.-Chronic ITP HPI: 49 [...] surgeries were uncomplicated with no excessive bleeding. December 2019:-The patient was diagnosed with Covid. He was not vaccinated at the time. In July2021, he continues to have signs and symptoms of long-haul syndrome including memory loss and fatigue. 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 He was first seen by us in October 2015. Since that time, his platelets are slowly decreasing with the most recent to being 66-67,000 over the past 9 months. Prasanna reports that he had his right hip replaced in June 2020 in [place]. He has not had any abnormal bleeding [...] to visit. 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 Family History: - Mother: was tested negative for PLT antigen 1; never had low plt count; - Father: htn, dlp - Siblings: brother and sister: both healthy; His sister also had low plt count at and was transfused; no issues now. Brother is a assembler filters at [employer]. 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 Physical Exam: Blood pressure 132/88, pulse 88, temperature 36.4 ??C (97.5 ??F), temperature source Temporal, resp.rate 22, height 178.2 cm (5' 10.16), weight 101.1 kg (222 lb 12.8 oz), SpO2 98 %. GENERAL: Prasanna looks well today HEENT: [...] (non-fasting) Result Value Ref Range Glucose Lvl 102 65 - 199 mg/dL BUN 20 10 - 20 mg/dL Creatinine 1.15 0.80 - 1.50 mg/dL Sodium 138 135 - 145 mmol/L Potassium 4.4 3.5 - 5.0 mmol/L Chloride 100 98 - 107 mmol/L CO2 27 22 - 31 mmol/L Anion Gap 11 5 - 15 mmol/L Calcium 9.4 8.5 - 10.5 mg/dL Total Protein 7.3 6.1 - 8.0 gm/dL Albumin 4.7 3.2 - 5.2 gm/dL AST 17 0 - 39 unit/L ALT 33 0 - 55 unit/L Alk Phos 84 40 - 130 unit/L Total Bilirubin 0.5 0.2 - 1.3 mg/dL Estimated GFR 75 >=60 mL/min/1.73 m?? Hemogram Result Value Ref Range WBC 5.5 4.0 - 9.5 x10(3)/mcL RBC 5.59 (H) 4.58 - 5.54 x10(6)/mcL Hemoglobin 16.0 13.7 - 16.5 gm/dL Hematocrit 46.4 40.5 - 48.5 % MCV 83.0 82.9 - 93.1 fL MCH 28.6 27.5 - 32.1 pg MCHC 34.5 32.0 - 35.7 gm/dL Platelets 59 (L) 145 - 357 x10(3)/mcL RDWSD 38.5 36.0 - 45.0 fL RDWCV 12.8 11.4 - 13.8 % MPV 11.4 7.6 - 12.9 fL nRBC % Auto 0.0 % nRBC Abs Auto 0.000 0.000 - 0.000 x10(3)/mcL Differential, Automated Result Value Ref Range Neutrophils % 44.3 % Neutr Abs (ANC) 2.43 1.70 - 6.10 x10(3)/mcL Lymphocytes % 43.0 % Lymphocytes Abs 2.4 0.9 - 3.2 x10(3)/mcL Monocytes % 8.9 % Monocyte Abs 0.5 0.3 - 0.9 x10(3)/mcL Eosinophils % 2.0 % Eosinophils Abs 0.1 0.0 - 0.4 x10(3)/mcL Basophils % 0.7 % Basophils Abs 0.0 0.0 - 0.1 x10(3)/mcL Immature Gran % 1.10 % Cheli Gran Abs 0.06 (H) 0.00 - 0.04 x10(3)/mcL Radiology/Studies: None to review spleen. It is 15.7 cm from [facility] CT scan Assessment/Plan: 50 y/o M with thrombocytopenia. His work up did not reveal any causative factor. We first saw, in October 2015. Since that time, his platelets have gradually decreased over the ensuing 5 years. For the past months, his platelets have been stable at 65-67,000 range. He has denied any problems with bleeding or bruising in the past. He had a most recent right total hip replacement without any evidence of bleeding or complications postoperatively. I emphasized to him that if he [...] understanding. #Hypertension Routine follow-up and healthcare maintenance with Dr. Kingsley Continue with routine exercise and weight control Plan No intervention for thrombocytopenia at this time Continue to monitor for any bleeding, bruising or petechiae Follow-up with Prasanna in 6 months for CBC to monitor platelets and then to see us in 9 months. MAIKEL BROOKE MD Hematology and Oncology ===== documented in this encounter Plan of Treatment Upcoming Encounters Date Type Specialty Care Team Description 09/06/2022 Appointment Hematology and Oncology 09/06/2022 Office Visit Hematology and Oncology Maikel Brooke MD [facility] DR HEMATOLOGY/[place] [address] Norma Garrido APRN [facility] [address] HEMATOLOGY-[place] [address] Marleen Reis MD [facility] DR HEMATOLOGY/[place] [address] documented as of this encounter Results Comprehensive metabolic panel (non-fasting) (01/25/2022 9:12 AM EDT) athologist Signature Glucose Lvl 77 65 - 199 [facility] mg/dL [facility] Comment: Diabetes: >=200 mg/dL plus symp toms BUN 18 10 - 20 mg/dL [facility] Creatinine 1.32 0.80 - 1.50 mg/dL [facility] Sodium 139 135 - 145 mmol/L [facility] Potassium 4.1 3.5 - 5.0 mmol/L [facility] Comment: Please note: ??Patients with WBC >100,00 0 may have falsely elevated Potassium levels. ??For accurate Potassium quantif ication in these patients send serum separator tube (gold top) for subsequent determinations. ??Contact the Clinical Chemistry Laboratory if there are any qu estions. Chloride 103 98 - 107 mmol/L [facility] CO2 27 22 - 31 mmol/L [facility] Anion Gap 9 5 - 15 mmol/L [facility] Calcium 9.3 8.5 - 10.5 mg/dL [facility] Total Protein 7.3 6.1 - 8.0 g/dL [facility] Albumin 4.8 3.2 - 5.2 g/dL [facility] AST 21 0 - 39 unit/L [facility] ALT 41 0 - 55 unit/L [facility] Alk Phos 86 40 - 130 unit/L [facility] Total Bilirubin 0.4 0.2 - 1.3 mg/dL [facility] Estimated GFR 63 >=60 mL/min/1.73 m?? [facility] Comment: This patient? s estimated [...] / Volume Laterality Blood 01/25/2022 9:12 AM 2 9:37 EDT AM EDT Resulting Agency Comment Spec In Lab Maikel Brooke MD CHEMISTRY ORDERABLES Performing Organization Address City/State/[place] [address] documented in this encounter Visit Diagnoses Diagnosis Idiopathic thrombocytopenic purpura Immune thrombocytopenic purpura Stage 1 chronic kidney disease Thrombocytopenia Thrombocytopenia, unspecified documented in this encounter Care Teams Artist Model Relationship Specialty Start Date End Date Kurtis Kingsley DO PCP - General 09/27/10 03/22/[address] [place] [address] documented as of this encounter
--- OUTSIDE RECORDS SUMMARY | 2022-08-02 12:59 | XMS_ITS | Encounter Summary ---
:1970 Author Organization [facility] [place] [address] Care Team Providers Name Role Phone Kurtis Kingsley Primary Care Provider Encounter Details Date Type Department Care Team Description 04/01/2020 Ancillary Procedure Radiology Library at Yovany Iyer MD [facility] [place] [address] [place] [address] [phone] (Wo rk) Social History Tobacco Use Types [...] [facility] DR HEMATOLOGY/ON[place] [address] [facility] [address] HEMATOLOGY-ONCOL[place] [address] [facility] DR HEMATOLOGY/[place] [address] documented as of this encounter Procedures Procedure Name Priority Date/Time Associated Diagnosis Comme nts FILM LIBRARY Routine 04/01/2020 12:00 AM Results for this STORAGE ONLY DX HIP EDT procedur e are in the results section. documented in this encounter Results Film Library- Storage Only DX Hip (04/01/2020 12:00 AM EDT) Specimen (Source) Anatomical Location Collection Method / Collectio n Time Received Time / Laterality Volume Narrative [facility] - 05/24/2020 8:43 PM EDT This exam is auto-finalizing. It's purpo se is for storage only. Christian Iyer MD IMGraciela FILM LIBRARY ORDERABLES Performing Organization Address City/State/ZIP Code Phon e Number [place], [place] documented in this encounter Visit Diagnoses Not on filedocumented in this encounter Care Teams Rehabilitation Caseworker Relationship Specialty Start Date End Date Kurtis Kingsley DO PCP - General 09/27/10 03/22/[address] [place] [address] documented as of this encounter
--- OUTSIDE RECORDS SUMMARY | 2022-08-02 12:59 | XMS_ITS | Encounter Summary ---
:1970 Author Organization [facility] [place] [address] Care Team Providers Name Role Phone SanchoKurits mcdaniel Primary Care Provider Encounter Details Date Type Department Care Team Description 10/08/2019 Hospital Encounter Hematology and Thrombo cytopenia; Oncology at [facility] Stage 1 [place] [address] Social History Tobacco Use Types Packs/Day Years Used Date Never Smoker Smokeless Tobacco: Never Used Alcohol Use Standard Drinks/Week Comments Yes 0 (1 standard drink = 0.6 oz pure alcoho l) Sex Assigned at Date Recorded Not on file documented as of this encounter Medications at Time of Discharge Medication Sig Dispensed Refills Start Date End Date cetirizine (ZYRTEC) 10 mg 0 03/07/2019 Tablet pramipexole (MIRAPEX) 1 0.5 mg. Indications: 0 mg TabletIndications: pt pt states he is states he is taking .5 mg taking .5 mg PROAIR HFA 90 Indications: PRN 1 01/16/201904/14 mcg/actuation HFA Aerosol InhalerIndications: PRN documented as of this encounter Plan of Treatment Upcoming Encounters Date Type Specialty Care Team Description 09/06/2022 Appointment Hematology and Oncology 09/06/2022 Office Visit Hematology and Oncology Maikel Rebolledo MD [facility] DR HEMATOLOGY/[place] [address] Norma Garrido APRN [facility] [address] [place]EMATOLOGY[place] [address] Marleen Reis MD [facility] DR HEMATOLOGY/[place] [address] documented as of this encounter Procedures Procedure Name Priority Date/Time Associated Comments Diagnosis HEMOGRAM STAT 10/08/2019 3:10 PM Thrombocytope shama Results for this EST Stage 1 chronic procedure ar e in kidney disease the results section. DIFFERENTIAL, STAT 10/08/2019 3:10 PM Thrombocytope shama Results for this AUTOMATED EST Stage 1 chronic procedure ar e in kidney disease the results section. HC CBC,PLT & AUTO STAT 10/08/2019 3:10 PM Thrombocyto penia DIFF EST Stage 1 chronic kidney disease HC VENIPUNCTURE STAT 10/08/2019 3:10 PM Thrombocytope shama Results for this EST Stage 1 chronic procedure ar e in kidney disease the results section. documented in this encounter Results Differential, Automated (10/08/2019 3:10 PM EST) P athologist Signature Neutrophils % 52.4 % [facility] Neutr Abs (ANC) 2.70 1.70 - [facility] 6.10 [facility] x10(3)/[facility] Lymphocytes % 36.4 % [facility] Lymphocytes Abs 1.9 0.9 - 3.2 [facility] x10(3)/[facility] Monocytes % 8.1 % [facility] Monocyte Abs 0.4 0.3 - 0.9 [facility] x10(3)/[facility] Eosinophils % 1.9 % [facility] Eosinophils Abs 0.1 0.0 - 0.4 [facility] x10(3)/[facility] Basophils % 0.6 % [facility] Basophils Abs 0.0 0.0 - 0.1 [facility] x10(3)/[facility] Immature Gran % 0.60 % [facility] Comment: Immature granulocytes(IG's)percentage an d absolute count will include metamyelocytes, myelocytes, and promyelo cytes. Blood smears from CBCs yielding IG's will be scanned manually for concor dance. If this scan disagrees with the automated IG or if promyelocytes are not ed, a manual differential will be performed. Cheli Gran Abs 0.03 0.00 - 0.04 x10(3)/[facility] Specimen Anatomical Collection Method Collection Time Receive d Time (Source) Location / / Volume Laterality Blood specimen 10/08/2019 3:10 PM 019 3:17 (specimen) EST PM EST Resulting Agency Comment Spec In Lab Maikel Rebolledo MD HEMATOLOGY ORDERABLES Performing Organization Address City/State/[place] [address] (ABNORMAL) Hemogram (10/08/2019 3:10 PM EST) Analysis Performed At Patho logist Time Signature WBC 5.2 4.0 - 9.5 [facility] x10(3)/[facility] LAB[facility]ORY RBC 5.73 (H) 4.58 - [facility] 5.54 [facility] x10(6)/[facility] Hemoglobin 16.6 (H) 13.7 - [facility] 16.5 gm/dL [facility] Hematocrit 47.8 40.5 - [facility] 48.5 % [facility] MCV 83.4 82.9 - [facility] 93.1 [facility] MCH 29.0 27.5 - [facility] 32.1 pg [facility] MCHC 34.7 32.0 - [facility] 35.7 gm/dL [facility] Platelets 67 (L) 145 - 357 [facility] x10(3)/[facility] LAB[facility]ATORY RDWSD 38.9 36.0 - [facility] 45.0 [facility] RDWCV 12.9 11.4 - [facility] 13.8 % [facility] MPV 11.7 7.6 - 12.9 [facility] LAB[facility]ORY nRBC % Auto 0.0 % [facility] nRBC Abs Auto 0.000 0.000 - [facility] 0.000 [facility] x10(3)/[facility] Specimen Anatomical Collection Method Collection Time Receive d Time (Source) Location / / Volume Laterality Blood specimen 10/08/2019 3:10 PM 019 3:17 (specimen) EST PM EST Resulting Agency Comment Spec In Lab Maikel Rebolledo MD HEMATOLOGY ORDERABLES Performing Organization Address City/State/[place] [address] Comprehensive metabolic panel (non-fasting) (10/08/2019 3:10 PM EST) athologist Signature Glucose Lvl 118 65 - 199 [facility] mg/dL [facility] Comment: Diabetes: >=200 mg/dL plus symp toms BUN 16 10 - 20 mg/dL [facility] Creatinine 1.17 0.80 - 1.50 mg/dL [facility] Sodium 139 135 - 145 mmol/L [facility] Potassium 4.1 3.5 - 5.0 mmol/L [facility] Comment: Please note: ??Patients with WBC >100,00 0 may have falsely elevated Potassium levels. ??For accurate Potassium quantif ication in these patients send serum separator tube (gold top) for subsequent determinations. ??Contact the Clinical Chemistry Laboratory if there are any qu estions. Chloride 102 98 - 107 mmol/L [facility] CO2 25 22 - 31 mmol/L [facility] Anion Gap 12 5 - 15 mmol/L [facility] Calcium 9.5 8.5 - 10.5 mg/dL [facility] Total Protein 7.6 6.1 - 8.0 gm/dL [facility] Albumin 4.6 3.2 - 5.2 gm/dL [facility] AST 23 0 - 39 unit/L [facility] ALT 36 0 - 55 unit/L [facility] Alk Phos 75 40 - 130 unit/L [facility] Total Bilirubin 0.5 0.2 - 1.3 mg/dL [facility] Estimated GFR 74 >=60 mL/min/1.73 m?? [facility] Comment: The eGFR was calculated using the CKD-EP I equation. As with all creatinine based estimates of kidney function, eGFR values calculated with the CKD-EPI equation are not accurate in patients wi th acute kidney failure, extremes of body mass or the acutely ill. http://[employer]/[facility] eGFR 86 >=60 mL/min/1.73 m?? [facility] Comment: The eGFR was calculated using the CKD-EP I equation. As with all creatinine based estimates of kidney function, eGFR values calculated with the CKD-EPI equation are not accurate in patients wi th acute kidney failure, extremes of body mass or the acutely ill. http://[employer]/[facility] Specimen Anatomical Collection Method Collection Time Receive d Time (Source) Location / / Volume Laterality Blood specimen 10/08/2019 3:10 PM 019 3:17 (specimen) EST PM EST Resulting Agency Comment Spec In Lab Maikel Rebolledo MD CHEMISTRY ORDERABLES Performing Organization Address City/State/Z[place] [address] documented in this encounter Visit Diagnoses Diagnosis Thrombocytopenia Thrombocytopenia, unspecified Stage 1 chronic kidney disease documented in this encounter Care Teams Count Team Member Relationship Specialty Start Date End Date Kurtis Kingsley DO PCP - General 09/27/10 03/22/[address] [place] [address] documented as of this encounter
--- OUTSIDE RECORDS SUMMARY | 2022-08-02 12:59 | XMS_ITS | Encounter Summary ---
:1970 Author Organization [facility] [place] [address] Care Team Providers Name Role Phone SanchoKurtis mcdaniel Primary Care Provider Encounter Details Date Type Department Care Team Description 06/11/2020 Ancillary Procedure [facility] [address] [id number] [phone] Social History Tobacco Use Types Packs/Day Years [...] [facility] DR HEMATOLOGY/[place] [address] Norma Garrido APRN [facility] DR HEMATOLOGY-[place] [address] Marleen Reis MD [facility] DR HEMATOLOGY/[place] [address] documented as of this encounter Procedures Procedure Name Priority Date/Time Associated Diagnosis Comme nts FILM LIBRARY Routine 06/11/2020 12:00 AM Results for this STORAGE ONLY DX EDT procedure ar e in SHOULDER the results section. documented in this encounter Results Film Library- Storage Only DX Shoulder (06/11/2020 12:00 AM EDT) Specimen (Source) Anatomical Location Collection Method / Collectio n Time Received Time / Laterality Volume Narrative [facility] - 06/27/2022 3:53 PM EDT This exam is auto-finalizing. It's purpo se is for storage only. Ruperto Shultz APRN IMG FILM LIBRARY ORDERABLES Performing Organization Address City/State/ZIP Code Phon e Number [place], [place] documented in this encounter Visit Diagnoses Not on filedocumented in this encounter Care Teams Hot Metal Charger Relationship Specialty Start Date End Date Kurtis Kingsley DO PCP - General 09/27/10 03/22/[address] [place] [address] documented as of this encounter
--- OUTSIDE RECORDS SUMMARY | 2022-08-02 12:59 | XMS_ITS | Encounter Summary ---
:1970 Author Organization [facility] [place] [address] Care Team Providers Name Role Phone Kurtis Kingsley DO Primary Care Provider Encounter Details Date Type Department Care Team Description 10/13/2020 Hospital Encounter Hematology and Idiopat hic thrombocytopenic purpura; Oncology at [facility] Stage 1 [place] [address] Social History Tobacco Use Types Packs/Day Years [...] [facility] DR HEMATOLOGY/[place] [address] Norma Garrido APRN [facility] [address] [place]AT[place] [address] Marleen Reis MD [facility] [place]EMATOLOGY/[place] [address] documented as of this encounter Procedures Procedure Name Priority Date/Time Associated Diagnosis Comme nts HEMOGRAM STAT 10/13/2020 8:34 Idiopathic Results for this AM EST thrombocytopenic procedure a re in purpura the results Stage 1 chronic kidney secti on. disease DIFFERENTIAL, STAT 10/13/2020 8:34 Idiopathic Results for this AUTOMATED AM EST thrombocytopenic procedure a re in purpura the results Stage 1 chronic kidney secti on. disease HC CBC,PLT & AUTO STAT 10/13/2020 8:34 Idiopathic DIFF AM EST thrombocytopenic purpura Stage 1 chronic kidney disease HC VENIPUNCTURE STAT 10/13/2020 8:34 Idiopathic Results f or this AM EST thrombocytopenic procedure a re in purpura the results Stage 1 chronic kidney secti on. disease documented in this encounter Results Differential, Automated (10/13/2020 8:34 AM EST) P athologist Signature Neutrophils % 44.8 % [facility] Neutr Abs (ANC) 2.25 1.70 - [facility] 6.10 [facility] x10(3)/[facility]ORATORY Lymphocytes % 42.1 % [facility] Lymphocytes Abs 2.1 0.9 - 3.2 [facility] x10(3)/[facility] LABORATORY Monocytes % 9.3 % [facility] Monocyte Abs 0.5 0.3 - 0.9 [facility] x10(3)/[facility] LABORATORY Eosinophils % 2.4 % [facility] Eosinophils Abs 0.1 0.0 - 0.4 [facility] x10(3)/[facility] LABORATORY Basophils % 0.8 % [facility] Basophils Abs 0.0 0.0 - 0.1 [facility] x10(3)/[facility] LABORATORY Immature Gran % 0.60 % [facility] Comment: Immature granulocytes(IG's)percentage an d absolute count will include metamyelocytes, myelocytes, and promyelo cytes. Blood smears from CBCs yielding IG's will be scanned manually for concor dance. If this scan disagrees with the automated IG or if promyelocytes are not ed, a manual differential will be performed. Cheli Gran Abs 0.03 0.00 - 0.04 x10(3)/[facility] Specimen Anatomical Collection Method Collection Time Receive d Time (Source) Location / / Volume Laterality Blood specimen 10/13/2020 8:34 AM 020 8:42 (specimen) EST AM EST Resulting Agency Comment Spec In Lab Maikel Rebolledo MD HEMATOLOGY ORDERABLES Performing Organization Address City/State/ZIP Code Phon e Number [place] [id number] (ABNORMAL) Hemogram (10/13/2020 8:34 AM EST) Analysis Performed At Patho logist Time Signature WBC 5.0 4.0 - 9.5 [facility] x10(3)/[facility] LABORATORY RBC 5.63 (H) 4.58 - [facility] 5.54 [facility] x10(6)/[facility] LABORATORY Hemoglobin 16.0 13.7 - [facility] 16.5 gm/dL [facility] Hematocrit 46.3 40.5 - [facility] 48.5 % [facility] MCV 82.2 (L) 82.9 - [facility] 93.1 fL [facility] MCH 28.4 27.5 - [facility] pg [facility] MCHC 34.6 32.0 - [facility] 35.7 gm/dL [facility] Platelets 65 (L) 145 - 357 [facility] x10(3)/[facility] LABORATORY RDWSD 39.0 36.0 - [facility] 45.0 [facility]ORY RDWCV 13.1 11.4 - [facility] 13.8 % [facility] MPV 12.0 7.6 - 12.9 [facility] LABORATORY nRBC % Auto 0.0 % [facility] nRBC Abs Auto 0.000 0.000 - [facility] 0.000 [facility] x10(3)/[facility] LABORATORY Specimen Anatomical Collection Method Collection Time Receive d Time (Source) Location / / Volume Laterality Blood specimen 10/13/2020 8:34 AM 020 8:42 (specimen) EST AM EST Resulting Agency Comment Spec In Lab Maikel Rebolledo MD HEMATOLOGY ORDERABLES Performing Organization Address City/State/[place] [address] Comprehensive metabolic panel (non-fasting) (10/13/2020 8:34 AM EST) P athologist Signature Glucose Lvl 97 65 - 199 [facility] mg/dL [facility] Comment: Diabetes: >=200 mg/dL plus symp toms BUN 17 10 - 20 mg/dL [facility] Creatinine 1.06 0.80 - 1.50 mg/dL [facility] Sodium 140 135 - 145 mmol/L [facility] Potassium 4.5 3.5 - 5.0 mmol/L [facility] Comment: Please note: [...] Anion Gap 10 5 - 15 mmol/L [facility] Calcium 9.5 8.5 - 10.5 mg/dL [facility] Total Protein 7.1 6.1 - 8.0 gm/dL [facility] Albumin 4.6 3.2 - 5.2 gm/dL [facility] AST 32 0 - 39 unit/L [facility] ALT 41 0 - 55 unit/L [facility] Alk Phos 86 40 - 130 unit/L [facility] Total Bilirubin 0.5 0.2 - 1.3 mg/dL [facility] Estimated GFR 83 >=60 mL/min/1.73 m?? 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
--- OUTSIDE RECORDS SUMMARY | 2022-08-02 12:59 | XMS_ITS | Encounter Summary ---
:1970 Author Organization [facility] [place] [address] Care Team Providers Name Role Phone Kurtis Kingsley DO Primary Care Provider Encounter Details Date Type Department Care Team Description 03/29/2021 Orders Only Hematology and Oncol og at [facility] [place] [address] Social History Tobacco Use Types Packs/Day [...] documented as of this encounter Progress Notes Sidra Hwakins RN - 03/29/2021 9:38 AM EDT Images from the original note were not included. N [facility] HEMATOLOGY AND ONCOLOGY AT [facility] [phone] Date: 03/29/21 Patient Name: Prasanna Shipman : 1970 Diagnosis: Essential Thrombocytopenia Referral to [site]: [facility] Orders: ? Labs: Fax results to [phone]. [x] To be drawn every 6 months starting on ~09/22/21 for 2 events [x] CBC with differential and Comprehensive metabolic panel Signature: Norma Garrido APRN beeper # [id number] Co-signature [if needed]: documented in this encounter Plan of Treatment Upcoming Encounters Date Type Specialty Care Team Description 09/06/2022 Appointment Hematology and Oncology 09/06/2022 Office Visit Hematology and Oncology Maikel Rebolledo MD [facility] DR HEMATOLOGY/[place] [address] Norma Garrido APRN [facility] [address] HEMATOLOGY[place] [address] Marleen Reis MD [facility] DR HEMATOLOGY/[place] [address] documented as of this encounter Visit Diagnoses Not on filedocumented in this encounter Care Teams Circuit Board Drafter Relationship Specialty Start Date End Date Kurtis Kingsley DO PCP - General 09/27/10 03/22/[address] [place] [address] documented as of this encounter
--- OUTSIDE RECORDS SUMMARY | 2022-08-02 12:59 | XMS_ITS | Encounter Summary ---
:1970 Author Organization [place] [address] Care Team Providers Name Role Phone Kurtis Kingsley DO Primary Care Provider Reason for Referral Diagnostic Test (Routine) - Closed Specialty Diagnoses / Procedures Referred By Contact Refer red To Contact Radiology Diagnoses Lumbar spondylosis Stephen Roger MD [facility] Rad Ct Scan Procedures CT Guided Nerve Block Lumbar Single Level [address] [place], [place] [id number] [place] [id number] Referral ID Status Reason Start Date Expiration Date Visits V isits Requested Authorized [id number] Closed Specialty 07/01/2019 06/30/2020 1 1 Service Requested Reason for Visit Diagnostic Test (Routine) - Closed Specialty Diagnoses / Procedures Referred By Contact Refer red To Contact Radiology Diagnoses Lumbar spondylosis Stephen Roger MD [facility] Rad Ct Scan Procedures CT Guided Nerve Block Lumbar Single Level [address] [address] Referral ID Status Reason Start Date Expiration Date Visits V isits Requested Authorized [id number] Closed Specialty 07/01/2019 06/30/2020 1 1 Service Requested Encounter Details Date Type Department Care Team Description 08/05/[address] Scan at [facility] Roger, Lumbar spondylosis [facility] MD [address] [place] [phone] Social History Tobacco Use Types Packs/Day Years [...] Visit Hematology and Oncology Maikel Rebolledo MD [facility] DR HEMATOLOGY/[place] [address] Norma Garrido APRN [facility] DR HEMATOLOGY[place] [address] Marleen Reis MD [facility] DR HEMATOLOGY/[place] [address] documented as of this encounter Procedures Procedure Name Priority Date/Time Associated Diagnosis Comme nts CT GUIDED NERVE Routine 08/05/2019 11:24 AM Lumbar spondylosis Results for this BLOCK LUMBAR SINGLE EDT procedur e are in LEVEL the results section. documented in this encounter Results CT Guided Nerve Block Lumbar Single Level (08/05/2019 11:24 AM EDT) Anatomical Region Laterality Modality T-spine Computed Tomography Specimen (Source) Anatomical Location Collection Method / Collectio n Time Received Time / Laterality Volume Impressions 08/05/2019 12:[address]-guided right L4-L5 facet joint anesthetic and steroid injection. Preliminary report signed by: Kenn Adkins at 08/05/2019 11:50 AM I, Dr. Yamile Dumas, was present for the entire procedure. I have personally reviewed the image(s) and the residents interpretation and agree with the findings, Yamile Dumas at 08/05/2019 12:33 PM Thank you for letting us participate in the care of this patient. For questions regarding this report, please contact e number below. ? Narrative 08/05/2019 12:33 PM EDT EXAMINATION: CT-Guided right L4-L5 Facet Joint Injection CLINICAL HISTORY: Right L4/5 facet injec tion with anesthetic and steroid COMPARISON: CT of the abdomen and pelvis 01/01/2018 TECHNIQUE: The risks and benefits of the procedure were discussed with the patient, and written informed consent was obtained. ? ?The patient was positioned prone on the CT table, and noncontrast images of the lumbar spine were obtained. The L4-L5 level and access path were chosen. ??The skin was then marked, prepped and draped in the usual sterile fashion. 1% lidocai ne used for local anesthesia. ?? With intermittent CT fluoroscopic guidan ce, a 22-gauge spinal needle was advanced into the right L4-L5 facet join t. Into the joint, 2 mL of 0.5% bupivacaine mixed with 80 mg of Depo-Med rol was injected. ??The needles were removed. The patient tolerated the proce dure well with no immediate complications. ?? FINDINGS: Postoperative changes at L4-L5 on the l eft consistent with laminotomy and foraminotomy. Facet arthropathy at L4-L5 on the right and L5-S1 bilaterally. Preprocedure pain: 4/10 Postprocedure pain: 3/10 ??with superimp osed fullness limiting evaluation. Patient was provided with the scoring sh eet to assess postprocedural pain. OPERATORS: Fellow: Kenn Adkins MD Attending: Yamile Dumas MD Procedure Note Yamile Dumas MD - 08/05/2019Form atting of this note might be different from the original. EXAMINATION: CT-Guided right L4-L5 Facet Joint Injection CLINICAL HISTORY: Right L4/5 facet injec tion with anesthetic and steroid COMPARISON: CT of the abdomen and pelvis 01/01/2018 TECHNIQUE: The risks and benefits of the procedure were discussed with the patient, and written informed consent was obtained. T he patient was positioned prone on the CT table, and noncontrast images of the lumbar spine were obtained. The L4-L5 level and access path were chosen. The s kin was then marked, prepped and draped in the usual sterile fashion. 1% lidocai ne used for local anesthesia. With intermittent CT fluoroscopic guidan ce, a 22-gauge spinal needle was advanced into the right L4-L5 facet join t. Into the joint, 2 mL of 0.5% bupivacaine mixed with 80 mg of Depo-Med rol was injected. The needles were removed. The patient tolerated the proce dure well with no immediate complications. FINDINGS: Postoperative changes at L4-L5 on the l eft consistent with laminotomy and foraminotomy. Facet arthropathy at L4-L5 on the right and L5-S1 bilaterally. Preprocedure pain: 4/10 Postprocedure pain: 3/10 with superimpos ed fullness limiting evaluation. Patient was provided with the scoring sh eet to assess postprocedural pain. OPERATORS: Fellow: Kenn Adkins MD Attending: Yamile Dumas MD IMPRESSION Successful CT-guided right L4-L5 facet j oint anesthetic and steroid injection. Preliminary report signed by: Kenn Adkins at 08/05/2019 11:50 AM I, Dr. Yamile Dumas, was present for the entire procedure. I have personally reviewed the image(s) and the residents interpretation and agree with the findings, Yamile Dumas at 08/05/2019 12:33 PM Thank you for letting us participate in the care of this patient. For questions regarding this report, please contact e number below. 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
--- OUTSIDE RECORDS SUMMARY | 2022-08-02 12:59 | XMS_ITS | Encounter Summary ---
:1970 Author Organization [facility] [place] [address] Care Team Providers Name Role Phone SanchoKurtis mcdaniel Primary Care Provider Encounter Details Date Type Department Care Team Description 04/08/2020 Ancillary Procedure Radiology Library at [facility], Chronic hip pain, [facility] [place] Remy unspecified [facility] [address] [facility] [phone] Social History Tobacco Use Types Packs/Day Years [...] Visit Hematology and Oncology Maikel Rebolledo MD [facility] DR HEMATOLOGY/[place] [address] Norma Garrido APRN [facility] HEMATOLOGY-[place] [address] Marleen Reis MD [facility] DR HEMATOLOGY/[place] [address] documented as of this encounter Procedures Procedure Name Priority Date/Time Associated Diagnosis Comme nts REQUEST FOR 2ND Routine 04/08/2020 8:38 AM Chronic hip pain, R esults for this READ MR HIP EDT unspecified procedure are i n laterality the results section. documented in this encounter Results Request for 2nd read MR Hip (04/08/2020 8:38 AM EDT) Anatomical Region Laterality Modality SO Specimen (Source) Anatomical Location Collection Method / Collectio n Time Received Time / Laterality Volume Impressions 04/08/2020 9:22 AM EDT 1. ??Osteoarthropathy of right hip with osteophytes, cartilage thinning and anterior superior and anterior labral te ars. 2. ??Tiny perilabral cyst at right anter ior labral tear. 3. ??Small foci of marrow signal alterat ion in left proximal femur are nonspecific and may be of no clinical im portance if there is no known underlying malignancy. Thank you for letting us participate in the care of this patient. For questions regarding this report, please contact e number below. ? Narrative 04/08/2020 9:22 AM EDT EXAMINATION: REQUEST FOR 2ND READ MR HIP CLINICAL HISTORY: Chronic pain just infe rior to ASIS with recreation with hip testing (impingement) and external rotat ion; Hip labral pathology? Chondral defect.; What Modality is the exam? MRI; Body Part (please add comments as necessary): Right Hip; Sending [facility] on [facility]; Date of exam [id number]; I belie ve a reinterpretation of this exam may alter care of Patient. Yes, ,entered by ordering service COMPARISON: CT scan abdomen pelvis, uary 2017 TECHNIQUE: Noncontrast MRI of the pelvis and Right hip was performed. Large field of view images of the pelvis inclu ding both hips were also applied. FINDINGS: Osseous structures * ??No fracture, avascular necrosis, or focal osseous lesion is seen. * ??Left proximal femur ??- Nonspecific small foci of subcortical marrow signal alteration in the intertrochanteric area of proximal femur. The larger focus is posterior, near the greater tuberosity, series 9001 image 13, and the small focus is anterior. No associated fractur e line, periostitis or soft tissue component. These are nonspecific and if there is no known underlying malignancy, these represent any combinations of resi dual hematopoietic marrow, reactive marrow signal alteration from tendinopat hy or bone bruise. Right Hip Small osteophytic lipping in femoral hea d, better appreciated on previous CT examination. Articular cartilage There is fissuring of the cartilage with in but without large full-thickness defect seen. The anterior superior aceta bular cartilage is attenuated adjacent to the labral tear, described below, ser ies 38268 image 17. Labrum 1. ??Anterior superior labrum-torn at at tachment, series 40601 image 17. The adjacent acetabular cartilage is attenua ilya. 2. ??Anterior labrum-torn at insertion a ccompanied by a tiny perilabral cyst, series 82252 image 21. 3. ??Rest of labrum- no gross tear. 4. ??perilabral cyst- tiny perilabral cy sts adjacent to the anterior labral tear. Ligamentum teres - normal Joint effusion There is trace fluid in right hip joints . Bursal fluid * ??Iliopsoas bursae-no bursal fluid is present. * ??Left trochanteric bursa-no bursal fl uid. Minimal peribursal inflammation around the left greater trochanter, romi cent to the small focus of marrow signal alteration. Findings represent left troc hanteric peribursal inflammation. Muscles Symmetric muscles. Tendons No tendon interruption. Procedure Note Regina Lancaster MD - 04/08/2020Formatt ing of this note might be different from the original. EXAMINATION: REQUEST FOR 2ND READ MR HIP CLINICAL HISTORY: Chronic pain just infe rior to ASIS with recreation with hip testing (impingement) and external rotat ion; Hip labral pathology? Chondral defect.; What Modality is the exam? MRI; Body Part (please add comments as necessary): Right Hip; Sending [facility]; Date of exam [id number]; I belie ve a reinterpretation of this exam may alter care of Patient. Yes, ,entered by ordering service COMPARISON: CT scan abdomen pelvis, 2017 TECHNIQUE: Noncontrast MRI of the pelvis and Right hip was performed. Large field of view images of the pelvis inclu ding both hips were also applied. FINDINGS: Osseous structures * No fracture, avascular necrosis, or fo danya osseous lesion is seen. * Left proximal femur - Nonspecific smal l foci of subcortical marrow signal alteration in the intertrochanteric area of proximal femur. The larger focus is posterior, near the greater tuberosity, series 9001 image 13, and the small focus is anterior. No associated fractur e line, periostitis or soft tissue component. These are nonspecific and if there is no known underlying malignancy, these represent any combinations of resi dual hematopoietic marrow, reactive marrow signal alteration from tendinopat hy or bone bruise. Right Hip Small osteophytic lipping in femoral hea d, better appreciated on previous CT examination. Articular cartilage There is fissuring of the cartilage with in but without large full-thickness defect seen. The anterior superior aceta bular cartilage is attenuated adjacent to the labral tear, described below, ser ies 88180 image 17. Labrum 1. Anterior superior labrum-torn at mariann chment, series 46378 image 17. The adjacent acetabular cartilage is attenua ilya. 2. Anterior labrum-torn at insertion acc ompanied by a tiny perilabral cyst, series 49209 image 21. 3. Rest of labrum- no gross tear. 4. perilabral cyst- tiny perilabral cyst s adjacent to the anterior labral tear. Ligamentum teres - normal Joint effusion There is trace fluid in right hip joints . Bursal fluid * Iliopsoas bursae-no bursal fluid is pr esent. * Left trochanteric bursa-no bursal flui d. Minimal peribursal inflammation around the left greater trochanter, romi cent to the small focus of marrow signal alteration. Findings represent left troc hanteric peribursal inflammation. Muscles Symmetric muscles. Tendons No tendon interruption. IMPRESSION 1. Osteoarthropathy of right hip with os teophytes, cartilage thinning and anterior superior and anterior labral te ars. 2. Tiny perilabral cyst at right anterio r labral tear. 3. Small foci of marrow signal alteratio n in left proximal femur are nonspecific and may be of no clinical im portance if there is no known underlying malignancy. Thank you for letting us participate in the care of this patient. For questions regarding this report, please contact e number below. Electronically signed by: Regina Lancaster [facility] ([phone]), at 04/08/2020 9:22 AM Remy Taylor MD IMG OUTSIDE INTERPRETATION O RDERABLES documented in this encounter Visit Diagnoses Diagnosis Chronic hip pain, unspecified laterality documented in this encounter Care Teams Home Care Chaplain Relationship Specialty Start Date End Date Kurtis Kingsley DO PCP - General 09/27/10 03/22/[address] [place] [address] documented as of this encounter
--- OUTSIDE RECORDS SUMMARY | 2022-08-02 12:59 | XMS_ITS | Encounter Summary ---
:1970 Author Organization [facility] [place] [address] Care Team Providers Name Role Phone SanchoKurtis mcdaniel Primary Care Provider Encounter Details Date Type Department Care Team Description 08/09/2021 Ancillary Procedure Radiology at [facility] Stephne Roger, [address] [place] [address] 10 ABEBA NASCIMENTO [phone] NEUROSURGERY-UVN N [place], [place] [address] (Wo rk) Social History Tobacco [...] Maikel Rebolledo MD [facility] HEMATOLOGY/[place] [address] Norma Garrido APRN [facility] DR HEMATOLOGY-[place] [address] Marleen Reis MD [facility] DR HEMATOLOGY/[place] [address] documented as of this encounter Procedures Procedure Name Priority Date/Time Associated Diagnosis Comme nts FILM LIBRARY Routine 08/09/2021 11:13 AM Results for this STORAGE ONLY MR EDT procedure ar e in SPINE the results section. documented in this encounter Results Film Library- Storage Only MR Spine (08/09/2021 11:13 AM EDT) Specimen (Source) Anatomical Location Collection Method / Collectio n Time Received Time / Laterality Volume Narrative [facility] - 08/09/2021 11:13 AM EDT This exam is auto-finalizing. It's purpo se is for storage only. Stephen Roger MD IMG FILM LIBRARY ORDERABLES Performing Organization Address City/State/ZIP Code Phon e Number [place], [place] documented in this encounter Visit Diagnoses Not on filedocumented in this encounter Care Teams Solar Designer Relationship Specialty Start Date End Date Kurtis Kingsley DO PCP - General 09/27/10 03/22/[address] [place] [address] documented as of this encounter
--- OUTSIDE RECORDS SUMMARY | 2022-08-02 12:59 | XMS_ITS | Encounter Summary ---
:1970 Author Organization [facility] [place] [address] Care Team Providers Name Role Phone Kurtis Kingsley DO Primary Care Provider Encounter Details Date Type Department Care Team Description 03/31/2021 Orders Only Hematology and Norma Garrido Idiopathic Oncology at [facility] C, MAINTENANCE SERVICE SUPERVISOR thrombocytopenic purpura [facility] [place] HEMATOLOGY-ONCOLO [address] [place] DEPT. [phone] [place], [place] [address] Social History Tobacco Use Types [...] and Oncology Maikel Rebolledo MD [facility] HEMATOLOGY/[place] [address] Norma Garrido APRN [facility] DR HEMATOLOGY[place] [address] Marleen Reis MD [facility] DR HEMATOLOGY/[place] [address] documented as of this encounter Results Comprehensive metabolic panel (non-fasting) (03/23/2022 7:54 AM EDT) athologist Signature Glucose Lvl 112 65 - 199 [facility] mg/dL [facility] Comment: Diabetes: >=200 mg/dL plus symp toms BUN 20 10 - 20 mg/dL [facility] Creatinine 1.13 0.80 - 1.50 mg/dL [facility] Sodium 138 135 - 145 mmol/L [place] estions. Chloride 101 98 - 107 mmol/L [facility] CO2 23 22 - 31 mmol/L [facility] Anion Gap 14 5 - 15 mmol/L [facility] Calcium 9.9 8.5 - 10.5 mg/dL [facility] Total Protein 7.3 6.1 - 8.0 g/dL [facility] Albumin 4.8 3.2 - 5.2 g/dL [facility] AST 24 0 - 39 unit/L [facility] ALT 43 0 - 55 unit/L [facility] Alk Phos 90 40 - 130 unit/L [facility] Total Bilirubin 0.4 0.2 - 1.3 mg/dL [facility] Estimated GFR 76 >=60 mL/min/1.73 m?? [facility] Comment: This patient? s [...] Organization Address City/State/[place] [address] Comprehensive metabolic panel (non-fasting) (07/27/2021 8:24 AM EDT) P athologist Signature Glucose Lvl 102 65 - 199 [facility] mg/dL [facility] Comment: Diabetes: >=200 mg/dL plus symp toms BUN 20 10 - 20 mg/dL [facility] Creatinine 1.15 0.80 - 1.50 mg/dL [facility] Sodium 138 135 - 145 mmol/L [facility] Potassium 4.4 3.5 - 5.0 mmol/L [facility] Comment: Please note: ??Patients with WBC >100,00 0 may have falsely elevated Potassium levels. ??For accurate Potassium quantif ication in these patients send serum separator tube (gold top) for subsequent determinations. ??Contact the Clinical Chemistry Laboratory if there are any qu estions. Chloride 100 98 - 107 mmol/L [facility] CO2 27 22 - 31 mmol/L [facility] Anion Gap 11 5 - 15 mmol/L [facility] Calcium 9.4 8.5 - 10.5 mg/dL [facility] Total Protein 7.3 6.1 - 8.0 gm/dL [facility] Albumin 4.7 3.2 - 5.2 gm/dL [facility] AST 17 0 - 39 unit/L [facility] ALT 33 0 - 55 unit/L [facility] Alk Phos 84 40 - 130 unit/L [facility] Total Bilirubin 0.5 0.2 - 1.3 mg/dL [facility] Estimated GFR 75 >=60 mL/min/1.73 m?? [facility] Comment: This patient? 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
--- OUTSIDE RECORDS SUMMARY | 2022-08-02 13:00 | XMS_ITS | Encounter Summary ---
:1970 Author Organization [facility] [place] [address] Care Team Providers Name Role Phone SanchoKurtis mcdaniel Primary Care Provider Encounter Details Date Type Department Care Team Description 01/19/2016 Hospital Encounter Hematology and ITP (id iopathic Oncology at [facility] thrombocytopenic purpura) [place] [id number] Social History Tobacco Use Types Packs/Day Years [...] FEXOFENADINE HCL (DAVID 0 09/16/2009 03/14/2019 ORAL) cycloSPORINE (RESTASIS) 0 09/16/2009 1 01/02/2016 0.05 % ophthalmic emulsion documented as of this encounter Plan of Treatment Upcoming Encounters Date Type Specialty Care Team Description 09/06/2022 Appointment Hematology and Oncology 09/06/2022 Office Visit Hematology and Oncology Maikel Rebolledo MD [facility] DR HEMATOLOGY/[place] [address] Norma Garrido APRN [facility] DR HEMATOLOGY-[place] [address] Marleen Reis MD [facility] DR HEMATOLOGY/[place] [address] documented as of this encounter Procedures Procedure Name Priority Date/Time Associated Diagnosis Comme nts HEMOGRAM STAT 01/19/2016 10:36 ITP (idiopathic Results for this AM EDT thrombocytopenic procedure a re in purpura) the results section. DIFFERENTIAL, STAT 01/19/2016 10:36 ITP (idiopathic Results for this AUTOMATED AM EDT thrombocytopenic procedure a re in purpura) the results section. CBC (WITH DIFF) STAT 01/19/2016 10:36 ITP (idiopathic AM EDT thrombocytopenic purpura) COMPREHENSIVE STAT 01/19/2016 10:36 ITP (idiopathic Results for this METABOLIC PANEL AM EDT thrombocytopenic procedur e are in (NON-FASTING) purpura) the results section. documented in this encounter Results Differential, Automated (01/19/2016 10:36 AM EDT) athologist Signature Neutrophils % 47.1 % [facility] Neutr Abs (ANC) 2.29 1.50 - [facility] 6.30 [facility] x10(3)/[facility] Lymphocytes % 43.2 % [facility] Lymphocytes Abs 2.1 1.0 - 3.6 [facility] x10(3)/[facility] LABORATORY Monocytes % 7.2 % [facility] Monocyte Abs 0.4 0.2 - 1.0 [facility] x10(3)/[facility] LABOR[facility]ORY Eosinophils % 1.9 % [facility] Eosinophils Abs 0.1 0.0 - 0.5 [facility] x10(3)/[facility] LAB[facility]ORY Basophils % 0.4 % [facility] Basophils Abs 0.0 0.0 - 0.2 [facility] x10(3)/[facility]ORY Immature Gran % 0.20 % [facility] Comment: Immature granulocytes(IG's)percentage an d absolute count will include metamyelocytes, myelocytes, and promyelo cytes. Blood smears from CBCs yielding IG's will be scanned manually for concor dance. If this scan disagrees with the automated IG or if promyelocytes are not ed, a manual differential will be performed. Cheli Gran Abs 0.01 0.00 - 0.05 x10(3)/[facility] Specimen Anatomical Collection Method Collection Time Receive d Time (Source) Location / / Volume Laterality Blood specimen 01/19/2016 10:36 6 (specimen) AM EDT 10:43 AM EDT Resulting Agency Comment Spec In Lab Maikel Rebolledo MD HEMATOLOGY ORDERABLES Performing Organization Address City/State/[place] [address] (ABNORMAL) Hemogram (01/19/2016 10:36 AM EDT) P athologist Signature WBC 4.9 4.0 - 10.0 [facility] x10(3)/[facility] LABORATORY RBC 5.60 4.63 - 6.08 [facility] x10(6)/[facility] LABORATORY Hemoglobin 16.6 13.7 - 17.5 [facility] gm/dL [facility] Hematocrit 45.8 40.0 - 51.0 [facility] MCV 81.8 79.0 - 92.0 [facility] MCH 29.6 25.6 - 32.2 [facility] LABORATORY MCHC 36.2 32.0 - 36.5 [facility] gm/dL [facility] Platelets 81 (L) 145 - 370 [facility] x10(3)/[facility] LABORATORY RDWSD 38.5 35.0 - 46.0 [facility] RDWCV 12.9 10.9 - 14.4 [facility] MPV 11.3 9.0 - 12.0 [facility] LAB[facility]ORY Specimen Anatomical Collection Method Collection Time Receive d Time (Source) Location / / Volume Laterality Blood specimen 01/19/2016 10:36 6 (specimen) AM EDT 10:43 AM EDT Resulting Agency Comment Spec In Lab Maikel Rebolledo MD HEMATOLOGY ORDERABLES Performing Organization Address City/State/ZIP Code Phon e Number [facility] [place] [address] Comprehensive metabolic panel (non-fasting) (01/19/2016 10:36 AM EDT) athologist Signature Glucose Lvl 99 65 - 199 [facility] mg/dL [facility] Comment: Diabetes: >=200 mg/dL plus symp toms BUN 16 10 - 20 mg/dL [facility] Creatinine 1.21 0.80 - 1.50 mg/dL [facility] Comment: Please note that the pediatric reference intervals supplied above were not validated at [facility]. Results from pediatri c patients should be interpreted in conjunction to the patient's age, height and muscle mass. Sodium 138 135 - 145 mmol/L [facility] Potassium 4.3 3.5 - 5.0 mmol/L [facility] Comment: Please note: ??Patients with WBC >100,00 0 may have falsely elevated Potassium levels. ??For accurate Potassium quantif ication in these patients send serum separator tube (gold top) for subsequent determinations. ??Contact the Clinical Chemistry Laboratory if there are any qu estions. Chloride 101 98 - 107 mmol/L [facility] CO2 26 22 - 31 mmol/L [facility] Anion Gap 11 5 - 15 mmol/L [facility] Calcium 9.6 8.5 - 10.5 mg/dL [facility] Total Protein 7.6 6.1 - 8.0 gm/dL [facility] Albumin 4.9 3.2 - 5.2 gm/dL [facility] AST 23 0 - 39 unit/L [facility] ALT 45 0 - 55 unit/L [facility] Alk Phos 76 40 - 120 unit/L [facility] Total Bilirubin 0.4 0.2 - 1.3 mg/dL [facility] Bili, Direct 0.1 0.0 - 0.3 mg/dL [facility] Estimated GFR >60 >=60 [facility] Comment: This estimated GFR (eGFR) value was calc ulated using the MDRD equation which has been validated on patients between t he ages of 18 and 70. The MDRD should not be used to assess kidney function in patients < 18 years of age or in patients with extremes of body mass, or in patients with acute kidney failure. This value should be multiplied by 1.2 f or patients. For further information please copy and past e the following links into your internet browser. http://[employer]/DHnkdep http://[employer]/DHMCnkf Specimen Anatomical Collection Method Collection Time Receive d Time (Source) Location / / Volume Laterality Blood specimen 01/19/2016 10:36 6 (specimen) AM EDT 10:43 AM EDT Resulting Agency Comment Spec In Lab Maikel Rebolledo MD CHEMISTRY ORDERABLES Performing Organization Address City/State/ZIP Code Phon e Number [place] [phone] documented in this encounter Visit Diagnoses Diagnosis ITP (idiopathic thrombocytopenic purpura ) Immune thrombocytopenic purpura documented in this encounter Care Teams Telephone Cleaner Relationship Specialty Start Date End Date Kurtis Kingsley DO PCP - General 09/27/10 03/22/[address] [place] [address] documented as of this encounter
--- OUTSIDE RECORDS SUMMARY | 2022-08-02 13:00 | XMS_ITS | Encounter Summary ---
:1970 Author Organization [facility] [place] [address] Care Team Providers Name Role Phone SanchoKurtis mcdaniel Primary Care Provider Encounter Details Date Type Department Care Team Description 03/07/2017 Office Visit Hematology and Maikel Rebolledo MD [facility] DR HEMATOLOGY/[place] [address] Thrombocytopenia; Oncology at [facility] Norma Alejandra APRN [facility] DR HEMATOLOGY[place] [address] Non morbid obesity due to excess calorie s; [facility] Palma Coulter [facility] DR HEMATOLOGY/[place] [address] [place] [id number] Social History Tobacco Use Types Packs/Day Years Used Date Never Smoker Smokeless Tobacco: Never Used Alcohol Use Standard Drinks/Week Comments Yes 0 (1 standard drink = 0.6 oz pure alcoho l) Sex Assigned at Date Recorded Not on file documented as of this encounter Last Filed Vital Signs Vital Sign Reading Time Taken Comments Blood Pressure 141/83 03/07/2017 3:44 PM EDT Pulse 91 03/07/2017 3:44 PM EDT Temperature 36.2 ??C (97.2 ??F) 03/07/2017 3:44 PM EDT Respiratory Rate 17 03/07/2017 3:44 PM EDT Oxygen Saturation 100% 03/07/2017 3:44 PM EDT Inhaled Oxygen Concentration - - Weight 95.4 kg (210 lb 6.4 oz) 03/07/2017 3:44 PM EDT Height 179 cm (5' 10.47) 03/07/2017 3:44 PM EDT Body Mass Index 29.79 03/07/2017 3:44 PM EDT documented in this encounter Progress Notes Norma Alejandra, URGENT CARE TECHNICIAN - 03/07/2017 4:00 PM EDT Images from the original note were not included. 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 He has a URI which is resolving. Has gained weight over the winter and has not been exercising.He denies bleeding, bruising, or petechiae. Remainder of ROS neg. Review of systems: Constitutional: as above Eyes: negative Respiratory: Negative. Cardiovascular: Negative. Gastrointestinal: GERD ---> chronic Genitourinary: Negative. Skin: Negative. Neurological: as above Hematological: as above Psychiatric/Behavioral: Negative. Musculoskeletal:as above Past Medical History: - Lipomas - Rest less leg syndrome - lasik surgery for vision correction - Knee surgery for torn meniscus and back surgeries : in 2012, 12/2014; Allergies: Pollen, micronized Medications: Current Outpatient Prescriptions on File Prior to Visit Medication Sig Dispense Refill ??? pramipexole (MIRAPEX) 1 mg Tablet 0.5 mg. Indications: pt states he is taking .5 mg ??? FEXOFENADINE HCL (DAVID ORAL) No current facility-administered medications on file prior to visit. 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 - Smoking: never - Alcohol: rarely - He lives in [place], [place] with his and 3 kids. Family History: - Mother: was tested negative for PLT antigen 1; never had low plt count; - Father: htn, dlp - Siblings: brother and sister: both healthy; His sister also had low plt count at and was transfused; no issues now. Brother is a technical professional at [employer]. 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 Physical Exam: BP 141/83 (Patient Position: Sitting) Pulse 91 Temp 36.2 ??C (97.2 ??F) (Temporal) Resp 17 Ht 179 cm (5' 10.47) Wt 95.4 kg (210 lb 6.4 oz) SpO2 100% BMI 29.79 kg/m2 GA: pleasant; cooperative; no apparent distress. HEENT: no tenderness over sinuses; oral mucosa - moist; no oral lesions; neck supple; CVS : S1, S2 +, RRR, no murmurs or gallops RS :CTABL, no wheeze or crackles. Lymphatic: no palpable adenopathy GI: BS +, Soft, NT/ND, no hepatosplenomegaly Neuro: no focal deficits. Skin: warm, dry, no rash; no petechiae or bruising. Left mid-tricep lipoma. Musculoskeletal: no ttp on spine Ext: No leg swelling or calf tenderness; Psychiatric: normal affect and mood Labs: Recent Results (from the past 24 hour(s)) Hemogram Result Value Ref Range WBC 5.6 4.0 - 9.5 x10(3)/mcL RBC 5.62 (H) 4.58 - 5.54 x10(6)/mcL Hemoglobin 16.5 13.7 - 16.5 gm/dL Hematocrit 46.8 40.5 - 48.5 % MCV 83.3 82.9 - 93.1 fL MCH 29.4 27.5 - 32.1 pg MCHC 35.3 32.0 - 35.7 gm/dL Platelets 86 (L) 145 - 357 x10(3)/mcL RDWSD 38.8 36.0 - 45.0 fL RDWCV 12.8 11.4 - 13.8 % MPV 11.2 7.6 - 12.9 fL nRBC % Auto 0.0 % nRBC Abs Auto 0.000 0.000 - 0.000 x10(3)/mcL Differential, Automated Result Value Ref Range Neutrophils % 51.0 % Neutr Abs (ANC) 2.87 1.70 - 6.10 x10(3)/mcL Lymphocytes % 39.8 % Lymphocytes Abs 2.2 0.9 - 3.2 x10(3)/mcL Monocytes % 5.9 % Monocyte Abs 0.3 0.3 - 0.9 x10(3)/mcL Eosinophils % 2.1 % Eosinophils Abs 0.1 0.0 - 0.4 x10(3)/mcL Basophils % 0.7 % Basophils Abs 0.0 0.0 - 0.1 x10(3)/mcL Immature Gran % 0.50 % Cheli Gran Abs 0.03 0.00 - 0.04 x10(3)/mcL Radiology/Studies: None to review Assessment/Plan: 46 y/o M with presenting for evaluation of thrombocytopenia. His work up did not reveal any causative factor. #. Thrombocytopenia -Platelet count stable -No complaints of bleeding / bruising / petechiae. -No indication for therapy at this time. -Will continue to monitor with CBC and return clinic visit in 4 months NORMA ALEJANDRA APRN Hematology and Oncology Fellow documented in this encounter Plan of Treatment Upcoming Encounters Date Type Specialty Care Team Description 09/06/2022 Appointment Hematology and Oncology 09/06/2022 Office Visit Hematology and Oncology Maikel Rebolledo MD [facility] HEMATOLOGY/[place] [address] Norma Alejandra APRN [facility] HEMATOLOGY[place] [address] Marleen Reis MD [facility] DR HEMATOLOGY/[place] [address] Scheduled Orders Name Type Priority Associated Diagnoses Order S chedule CBC (with Diff) Lab STAT Thrombocytopenia Every 16 weeks for 3 Non morbid obesity due to Oc currences starting excess calories 03/20/2017 until 07/12/2018, Multiple lipomas 1 completed documented as of this encounter Visit Diagnoses Diagnosis Thrombocytopenia Thrombocytopenia, unspecified Non morbid obesity due to excess calorie s Multiple lipomas Lipoma of unspecified site documented in this encounter Care Teams Claim Taker Relationship Specialty Start Date End Date Kurtis Kingsley DO PCP - General 09/27/10 03/22/[address] [place] [address] documented as of this encounter
--- OUTSIDE RECORDS SUMMARY | 2022-08-02 13:00 | XMS_ITS | Encounter Summary ---
:1970 Author Organization [place] [address] Care Team Providers Name Role Phone SanchoKurtis mcdaniel Primary Care Provider Reason for Visit Reason Onset Date Comments Results 01/21/2016 Encounter Details Date Type Department Care Team Description 01/21/2016 Telephone Hematology and Oncology at [facility] [place] [address] Social History Tobacco Use Types Packs/Day Years Used Date Never Smoker Smokeless Tobacco: Never Used Alcohol Use Standard Drinks/Week Comments Yes 0 (1 standard drink = 0.6 oz pure alcoho l) Sex Assigned at Date Recorded Not on file documented as of this encounter Miscellaneous Notes Telephone Encounter - Belinda Pritchett RN - 01/21/2016 8:52 AM EDT 01-19-16: Message sent to Dr Bain to review patient's lab results from 01-19-16, clarify if patient needs monthly or quarterly labs. 01-21-16: Message received from Dr Bain stating patient can have labs drawn every 3 months, so his next draw will eb at f/u appt. Request sent to clinical press secretary to notify patient of lab appt change. RN will continue to follow and coordinate care. documented in this encounter Plan of Treatment Upcoming Encounters Date Type Specialty Care Team Description 09/06/2022 Appointment Hematology and Oncology 09/06/2022 Office Visit Hematology and Oncology Maikel Rebolledo MD [facility] DR HEMATOLOGY/[place] [address] Norma Garrido APRN [facility] [address] HEMATOLOGY[place] [address] Marleen Reis MD [facility] HEMATOLOGY/[place] [address] documented as of this encounter Visit Diagnoses Not on filedocumented in this encounter Care Teams Tour Conductor Relationship Specialty Start Date End Date Kurtis Kingsley DO PCP - General 09/27/10 03/22/[address] [place] [address] documented as of this encounter
--- OUTSIDE RECORDS SUMMARY | 2022-08-02 13:00 | XMS_ITS | Encounter Summary ---
:1970 Author Organization [place] [address] Care Team Providers Name Role Phone SanchoKurtis mcdaniel Primary Care Provider Encounter Details Date Type Department Care Team Description 01/04/2018 External Results Hematology and Marissa Hughes Idiopath ic Oncology at [facility] [place] [address] Social History Tobacco Use Types Packs/Day Years [...] Visit Hematology and Oncology Maikel Rebolledo MD [facility] DR HEMATOLOGY/[place] [address] Norma Garrido APRN [facility] DR HEMATOLOGY-[place] [address] Marleen Reis MD [facility] DR HEMATOLOGY/[place] [address] documented as of this encounter Visit Diagnoses Diagnosis Idiopathic thrombocytopenic purpura Immune thrombocytopenic purpura documented in this encounter Care Teams Mattress Packer Relationship Specialty Start Date End Date Kurtis Kingsley DO PCP - General 09/27/10 03/22/22 [address] [facility] [address] [place] [address] documented as of this encounter
--- OUTSIDE RECORDS SUMMARY | 2022-08-02 13:00 | XMS_ITS | Encounter Summary ---
:1970 Author Organization [facility] [place] [address] Care Team Providers Name Role Phone Kurtis Kingsley DO Primary Care Provider Encounter Details Date Type Department Care Team Description 08/23/2012 Hospital Encounter MRI at [facility] Kurtis Kingsley DO [address] [place], [place] [id number] [place] [address] Social History Tobacco Use Types Packs/Day Years Used Date Never Smoker Smokeless Tobacco: Never Used Alcohol Use Standard Drinks/Week Comments Yes 0 (1 standard drink = 0.6 oz pure alcoho l) Sex Assigned at Date Recorded Not on file documented as of this encounter Medications at Time of Discharge Medication Sig Dispensed Refills Start Date End Date gabapentin (NEURONTIN) 300 Take 300 mg by 0 12/15/2015 mg capsule mouth daily. pramipexole (MIRAPEX) 0.25 Take 0.5 mg by 0 12/15/2015 mg tablet mouth daily. FEXOFENADINE HCL (DAVID 0 09/16/2009 03/14/2019 ORAL) cycloSPORINE (RESTASIS) 0 09/16/2009 1 01/02/2016 0.05 % ophthalmic emulsion documented as of this encounter Miscellaneous Notes Miscellaneous - Provider, Scanning - 09/23/2012 11:16 AM EST documented in this encounter Plan of Treatment Upcoming Encounters Date Type Specialty Care Team Description 09/06/2022 Appointment Hematology and Oncology 09/06/2022 Office Visit Hematology and Oncology Maikel Rebolledo MD [facility] DR HEMATOLOGY/[place] [address] Norma Garrido APRN [facility] DR HEMATOLOGY-[place] [address] Marleen Reis MD [facility] HEMATOLOGY/[place] [address] documented as of this encounter Procedures Procedure Name Priority Date/Time Associated Diagnosis Comme nts MRI LUMBAR SPINE Routine 08/23/2012 8:30 AM Resul ts for this WITHOUT CONTRAST EDT procedure a re in the results section. documented in this encounter Results MRI LUMBAR SPINE WITHOUT CONTRAST (08/23/2012 8:30 AM EDT) Anatomical Region Laterality Modality L-spine Magnetic Resonance Specimen (Source) Anatomical Collection Method Collection Time Re ceived Time Location / / Volume Laterality 08/23/2012 8:30 AM EDT Narrative 08/23/2012 9:45 AM EDT Examination MR Lumbar Spine WO Clinical History PERSISTENT RIGHT SCIATICA Comparison None Technique Noncontrast MRI of the lumbar spine. Findings The alignment of the spine is normal. ?? The conus is normal. ??The bone marrow signal intensity is normal. The conus is normal. ??The bone marrow s ignal intensity is normal. Visualized retroperitoneal structures ar e normal. T12-L1: ??There is no canal or foraminal stenosis. L1-L2: ??There is no canal or foraminal stenosis. L2-L3: ??There is no canal or foraminal stenosis. ??There is mild facet arthropathy. L3-L4: ??There is no canal or foraminal stenosis. ??There is mild facet arthropathy. L4-L5: ??There is moderate facet arthrop athy. ??There are very tiny synovial cysts on the left but no canal or forami nal stenosis. L5-S1: ??There is moderate facet arthrop athy, but no canal or foraminal stenosis. Impression Comparison facet degenerative changes lo wer lumbar spine. ??Overall, no significant canal or foraminal stenosis. Procedure Note Angelo Forrest MD - 08/23/2012Forma tting of this note might be different from the original. Examination MR Lumbar Spine WO Clinical History PERSISTENT RIGHT SCIATICA Comparison None Technique Noncontrast MRI of the lumbar spine. Findings The alignment of the spine is normal. Th e conus is normal. The bone marrow signal intensity is normal. The conus is normal. The bone marrow sig nal intensity is normal. Visualized retroperitoneal structures ar e normal. T12-L1: There is no canal or foraminal s tenosis. L1-L2: There is no canal or foraminal st enosis. L2-L3: There is no canal or foraminal st enosis. There is mild facet arthropathy. L3-L4: There is no canal or foraminal st enosis. There is mild facet arthropathy. L4-L5: There is moderate facet arthropat hy. There are very tiny synovial cysts on the left but no canal or forami nal stenosis. L5-S1: There is moderate facet arthropat hy, but no canal or foraminal stenosis. Impression Comparison facet degenerative changes lo wer lumbar spine. Overall, no significant canal or foraminal stenosis. Kurtis Kingsley DO IMG MRI ORDERABLES documented in this encounter Visit Diagnoses Not on filedocumented in this encounter Care Teams Stock Preparation Supervisor Relationship Specialty Start Date End Date Kurtis Kingsley DO PCP - General 09/27/10 03/22/[address] [place] [address] documented as of this encounter
--- OUTSIDE RECORDS SUMMARY | 2022-08-02 13:00 | XMS_ITS | Encounter Summary ---
:1970 [place] [address] Care Team Providers Name Role Phone SanchoKurtis mcdaniel Primary Care Provider Encounter Details Date Type Department Care Team Description 12/04/2012 Interpretation Only Radiology at [facility] Ce nter None [address] [place] [address] [place] [address] Social History Tobacco Use Types Packs/Day [...] [facility] HEM[facility]/[place] [address] Norma Garrido APRN [facility] [place] [address] Marleen Reis MD [facility] HEMAT[facility]/[place] [address] documented as of this encounter Procedures Procedure Name Priority Date/Time Associated Diagnosis Comme nts XR FLUORO NO RAD Routine 12/04/2012 5:52 AM Resul ts for this <1HR - RADIOLOGY EST procedure a re in USE the results section. documented in this encounter Results XR Fluoro <1Hr - Radiology Use (12/04/2012 5:52 AM EST) Anatomical Region Laterality Modality N/A Radiographic Imaging Specimen (Source) Anatomical Collection Method Collection Time Re ceived Time Location / / Volume Laterality 12/04/2012 5:52 AM EST Narrative 12/04/2012 5:52 AM EST APD Historical Result Principal Vacation Planner: ??PIYUSH ??AMANDA Bonds INTRAOPERATIVE FLUOROSCOPY: A total of 5.6 seconds (396.36 mrad) of intraoperative fluoroscopy was used by Dr Hall. ?? There was no Radiologist present during the exam. Two spot images document the procedure. Piyush Britt MD [facility] [id number]* CC: Procedure Note Unknown - 05/05/2019Formatting of this n ote might be different from the original. APD Historical Result Principal Vacation Planner: PIYUSH BRITT INTRAOPERATIVE FLUOROSCOPY: A total of 5.6 seconds (396.36 mrad) of intraoperative fluoroscopy was used by Dr Hall. There was no Radiologist present during the exam. Two spot images document the procedure. Piyush Britt MD [facility] [id number]* CC: Unknown IMG FLUORO ORDERABLES documented in this encounter Visit Diagnoses Not on filedocumented in this encounter Care Teams Microbiology Quality Control Technician Relationship Specialty Start Date End Date Kurtis Kingsley DO PCP - General 09/27/10 03/22/[address] [place] [address] documented as of this encounter
--- OUTSIDE RECORDS SUMMARY | 2022-08-02 13:00 | XMS_ITS | Encounter Summary ---
:1970 Author Organization [facility] [place] [address] Care Team Providers Name Role Phone Sancho Kurtis PIERRE Primary Care Provider Reason for Visit Reason Onset Date Comments Results 12/07/2015 Lab results 12-02-15 Encounter Details Date Type Department Care Team Description 12/07/2015 Telephone Hematology and Oncology Sherly Bateman, Results (Lab results at [facility] 12-02-15) [place] [address] Social History Tobacco Use Types Packs/Day Years Used Date Never Smoker Smokeless Tobacco: Never Used Alcohol Use Standard Drinks/Week Comments Yes 0 (1 standard drink = 0.6 oz pure alcoho l) Sex Assigned at Date Recorded Not on file documented as of this encounter Miscellaneous Notes Telephone Encounter - Sherly Bateman, RN - 12/07/2015 10:35 AM EST Received lab results 12-02-15 via fax from [facility]. Input results into eDH and forwarded to Dr Rebolledo and Dr Eisenberg. PLT=92. Reviewed lab results 12-02-[address] Eisenberg. No new orders. RTC 12-15-15. Spoke to pt to discuss results 12-15-15. Aware PLT=92 and no further lab work is needed until RTC 12-15-15. Confirmed appointment times for 12-15-15. Pt aware to contact clinic office with further questions or concerns. RN will continue to track labs and monitor status. documented in this encounter Plan of Treatment Upcoming Encounters Date Type Specialty Care Team Description 09/06/2022 Appointment Hematology and Oncology 09/06/2022 Office Visit Hematology and Oncology Maikel Rebolledo MD [facility] DR HEMATOLOGY/[place] [address] Norma Garrido APRN [facility] DR [place]EMATOLOG[place] [address] Marleen Reis MD [facility] DR HEMATOLOGY/[place] [address] documented as of this encounter Visit Diagnoses Not on filedocumented in this encounter Care Teams Technology Education Teacher Relationship Specialty Start Date End Date Kurtis Kingsley DO PCP - General 09/27/10 03/22/[address] [place] [address] documented as of this encounter
--- OUTSIDE RECORDS SUMMARY | 2022-08-02 13:00 | XMS_ITS | Encounter Summary ---
:1970 Author Organization [facility] Address [facility] [place] [address] Care Team Providers Name Role Phone SanchoKurtis mcdaniel Primary Care Provider Reason for Visit Reason Comments Finger Injury left pinky Encounter Details Date Type Department Care Team Description 10/23/2011 [facility] (Primary [facility] [place] Dx) [facility] DR Thakkar PLASTIC SURGERY [place] [phone] Social History Tobacco Use Types Packs/Day Years Used Date Never Smoker Smokeless Tobacco: Never Used Alcohol Use Standard Drinks/Week Comments Yes 0 (1 standard drink = 0.6 oz pure alcoho l) Sex Assigned at Date Recorded Not on file documented as of this encounter Last Filed Vital Signs Vital Sign Reading Time Taken Comments Blood Pressure - - Pulse - - Temperature - - Respiratory Rate - - Oxygen Saturation - - Inhaled Oxygen Concentration - - Weight 89.4 kg (197 lb 3.2 oz) 10/23/2011 2:27 PM EST Height 180.3 cm (5' 11) 10/23/2011 2:27 PM EST Body Mass Index 27.5 10/23/2011 2:27 PM EST documented in this encounter Patient Instructions Patient InstructionsAnaya Smith RN - 10/23/2011 2:50 PM EST Welcome to [employer], your secure online access to your electronic medical record at [facility]. Using The [employer]ima you will be able to send messages to your providers, view your test results, renew prescriptions, schedule appointments, and much more. Follow these instructions to enter your personal [employer] account for the first time: 1. Start your internet browser. Go to [email or web address] and click on the [employer] link. 2. Click SIGN UP NOW to go to the NEW MEMBER SIGN UP page. 3. Enter your [employer] Access Code exactly as it appears below. (You will not need this access code after you have completed the sign-up process.) ?? Your [employer] Access Code: [email or web address] ?? Expires: 12/07/11 02:49 PM ?? IMPORTANT: This Access Code will on the above mentioned date. If you do not sign up beforethis date, you will need to request a new Access Code number. 4. Enter your Date of (mm/dd/yyyy) and zip code click SUBMIT to go to the next page. 5. Create a [employer] identification (ID). This will be your [employer] login ID and cannot be changed, so think of one that is secure and easy to remember. 6. Create a password which you can change at any time. Your password must contain six (6) letters and two (2) numbers. 7. Enter your Password Reset Question and Answer. This will be used if you forget your password. 8. Enter your e-mail address. This is used to let you know when new information is available in [employer]. 9. Click SIGN UP to complete the process. You can now view your electronic medical record. If you have any questions about [employer] or your Access Code, please call for [place], for [place] or for [place]. If you need technical support, please e-mail [email or web address]. Remember, myD-H is NOT for urgent needs! Always dial 911 for medical emergencies. Follow up with Dr. Knowles as needed. Call for any increasing pain or discomfort. documented in this encounter Progress Notes Vicente Knowles MD - 10/23/2011 3:34 PM EST PLASTIC SURGERY CONSULTATION Vicente Knowles M.D. KURTIS OSEGUERA, DO None CC: HPI: Prasanna Shipman is a 41 y.o. male who injured his L ring and small finger in early September playing basketball. He had stiffness and discomfort but this resolved and he is back to nl activity including basketball and weight lifting. He noted a mass atthe volar surface at the base of the small finger. It is not painful, not changing in size and not limiting use of the hand. HE has no prior masses. HE had a x-ray 09/19 that noted no bony deformities. Past Medical History Diagnosis Date ??? Allergy ??? asthma ??? restless leg ??? prostatitis Past Surgical History Procedure Date ??? Urology surgery procedure unlisted June, Vasectomy ??? Musculoskeletal surgery unlisted Knee History Social History ??? Marital Status: Spouse Name: N/A Number of Children: N/A ??? Years of Education: N/A Occupational History ??? Not on file. Social History Main Topics ??? Smoking status: Never Smoker ??? Smokeless tobacco: Never Used ??? Alcohol Use: Yes 1 Glasses of wine per week ??? Drug Use: No ??? Sexually Active: Not on file Other Topics Concern ??? Regular Exercise Is At Least 30 Minutes Of Moderate Physical Activity 5 Days A Week. This Would Be Walking Fast, Playing Tennis, Mowing The Lawn. Regular Exercise Is Also At Least 20 Minutes Of Vigorous Physical Activity 3 Days A Week. This Would Be Jogging, Swimming, Playing Basketball. Do You Get Regular Exercise? Yes ??? Are You Or Have You Been Threatened Or Abused Physically, Emotionally, Or Sexually By A Partner/spouse/family Member? No Social History Narrative ??? No narrative on file Allergies Allergen Reactions ??? Pollen,micronized Itching Current outpatient prescriptions ordered prior to encounter Medication Sig Dispense Refill ??? cycloSPORINE (RESTASIS) 0.05 % ophthalmic emulsion ??? FEXOFENADINE HCL (DAVID ORAL) REVIEW OF SYSTEMS: GI, . Psych, Neuro, Renal, Immun., Heme, Card, Pulm: Negative EXAMINATION: Constitutional: NAD HEENT: MMM, normocephalic, EOMI Pulm: symmetric excursion, unlabored, no audible wheeze Cor: pulse regular L HAND: Inspection/Soft Tissue: , No Open wounds Vascular: intac Sensation: Major Nerves: Radial N. (first dorsal web space) 10/10 Median N. (radial tip of index) 10/10 Ulnar N. (ulnar tip of small) 10/10 Finger Tips: Thumb: radial: 10/10; ulnar 10/10 Index: radial: 10/10; ulnar 10/10 Long: radial: 10/10; ulnar 10/10 Ring: radial: 10/10; ulnar 10/10 Small: radial: 10/10; ulnar 10/10 Motor: Radial (EPL): 5/5 Median (APB): 5/5 Ulnar (1st DI): 5/5 other strength: ROM: no scissoring, normal cascade At the level of the A1 becca of the L small finger a BB sized mass that is mobile medial/laterally.No TTP. It does not move with excursion of the finger and the finger does not trigger. Laboratory: Diagnostic Testing: Xray report in eDH reviewed from [facility], 09/19 w/o evidence of deformity or mass. Procedure: Assessment: Prasanna Shipman 41 y.o. male patient with a L sided hand mass that is at the base of the small finger. This lesion is assymptomatic and may be a tendon sheath cyst. I discussed this with him and we cannot be sure without excision. I think this would be difficult to aspirate. He prefers observation at this time. Should he develop symptoms or the lesion change he will return. We discussed theprocess of excision. Recommendations: Observation. documented in this encounter Plan of Treatment Upcoming Encounters Date Type Specialty Care Team Description 09/06/2022 Appointment Hematology and Oncology 09/06/2022 Office Visit Hematology and Oncology Maikel Rebolledo MD [facility] HEMATOLOGY/[place] [address] Norma Garrido APRN [facility] DR HEMATOLOGY[place] [address] Marleen Reis MD [facility] DR HEMATOLOGY/[place] [address] documented as of this encounter Visit Diagnoses Diagnosis Mass of hand - Primary Localized superficial swelling, mass, or lump documented in this encounter Care Teams Counter Control Operator Relationship Specialty Start Date End Date Kurtis Oseguera DO PCP - General 09/27/10 03/22/[address] [place] [address] documented as of this encounter
--- OUTSIDE RECORDS SUMMARY | 2022-08-02 13:00 | XMS_ITS | Encounter Summary ---
:1970 Author Organization [facility] [place] [address] Care Team Providers Name Role Phone SanchoKurtis mcdaniel Primary Care Provider Encounter Details Date Type Department Care Team Description 01/04/2018 External Results [facility] [place] [address] Social History Tobacco Use Types Packs/Day [...] and Oncology Maikel Rebolledo MD [facility] DR HEMATOLOGY/[place] [address] Norma Garrido APRN [facility] [place]ATOLOGY[place] [address] Marleen Reis MD [facility] HEMATOLOGY/[place] [address] documented as of this encounter Procedures Procedure Name Priority Date/Time Associated Diagnosis Comme nts CBC (WITH DIFF) Routine 01/04/2018 8:54 AM Result s for this EST procedure are i n the results section. CBC (WITH DIFF) Routine 12/18/2017 8:06 AM Result s for this EST procedure are i n the results section. documented in this encounter Results (ABNORMAL) CBC (with Diff) (01/04/2018 8:54 AM EST) P athologist Signature WBC 5.56 4.4 - 10.8 EXTERNAL LAB Hemoglobin 17.6 13.5 - EXTERNAL LAB (EXTERNAL/A 17.5 BN) Hematocrit 49.0 40.0 - EXTERNAL LAB 50.0 Platelets 75 130 - 400 EXTERNAL LAB (EXTERNAL/A BN) Specimen (Source) Anatomical Collection Method Collection Time Re ceived Time Location / / Volume Laterality Blood specimen 01/04/2018 8:54 AM (specimen) EST Historical Provider HEMATOLOGY ORDERABLES Performing Organization Address City/State/ZIP Code Phon e Number EXTERNAL FACILITY EXTERNAL LAB (ABNORMAL) CBC (with Diff) (12/18/2017 8:06 AM EST) Patholo gist Method Time Signature WBC 5.03 4.4 - 10.8 EXTERNAL LAB Hemoglobin 16.3 13.5 - EXTERNAL LAB 17.5 Hematocrit 45.6 40.0 - EXTERNAL LAB 50.0 Platelets 75 130 - 400 EXTERNAL LAB (EXTERNAL/ ABN) Neutr Abs (ANC) 2.21 1.26 - 6.7 EXTERNAL LAB Lymphocyte Abs 2.26 1.2 - 3.4 EXTERNAL LAB Specimen (Source) Anatomical Collection Method Collection Time Re ceived Time Location / / Volume Laterality Blood specimen 12/18/2017 8:06 AM (specimen) EST Historical Provider HEMATOLOGY ORDERABLES Performing Organization Address City/State/ZIP Code Phon e Number EXTERNAL FACILITY EXTERNAL LAB documented in this encounter Visit Diagnoses Not on filedocumented in this encounter Care Teams Head And Neck Surgeon Relationship Specialty Start Date End Date Kurtis Kingsley DO PCP - General 09/27/10 03/22/[address] [place] [address] documented as of this encounter
--- OUTSIDE RECORDS SUMMARY | 2022-08-02 13:00 | XMS_ITS | Encounter Summary ---
:1970 Author Organization [facility] [place] [address] Care Team Providers Name Role Phone SanchoKurtis mcdaniel Primary Care Provider Encounter Details Date Type Department Care Team Description 04/14/2016 Orders Only Hematology and [place], ITP (idiopat hic Oncology at [facility] [place] Partha thrombocytopenic purpura) [facility] [place] HEMATOLOGY/ONCOLO [phone] [place] DEPT [phone] [place], [place] [address] Social History Tobacco Use Types [...] Visit Hematology and Oncology Maikel Rebolledo MD [facility] HEMATOLOGY/[place] [address] Norma Garrido APRN [facility] [place]ATOLOGY[place] [address] Marleen Reis MD [facility] DR HEMATOLOGY/[place] [address] documented as of this encounter Results (ABNORMAL) Comprehensive metabolic panel (non-fasting) (04/19/2016 3:18 PM EDT) athologist Signature Glucose Lvl 84 65 - 199 [facility] mg/dL [facility] Comment: Diabetes: >=200 mg/dL plus symp toms BUN 20 10 - 20 mg/dL [facility] Creatinine 1.33 0.80 - 1.50 mg/dL [facility] Comment: Please note that the pediatric reference intervals supplied above were not validated at [facility]. Results from pediatri c patients should be interpreted in conjunction to the patient's age, height and muscle mass. Sodium 140 135 - 145 mmol/L [facility] Potassium 4.0 3.5 - 5.0 mmol/L [facility] Comment: Please note: ??Patients with WBC >100,00 0 may have falsely elevated Potassium levels. ??For accurate Potassium quantif ication in these patients send serum separator tube (gold top) for subsequent determinations. ??Contact the Clinical Chemistry Laboratory if there are any qu estions. Chloride 101 98 - 107 mmol/L [facility] CO2 23 22 - 31 mmol/L [facility] Anion Gap 16 (H) 5 - 15 mmol/L [facility] Calcium 9.3 8.5 - 10.5 mg/dL [facility] Total Protein 7.4 6.1 - 8.0 gm/dL [facility] Albumin 4.9 3.2 - 5.2 gm/dL [facility] AST 19 0 - 39 unit/L [facility] ALT 37 0 - 55 unit/L [facility] Alk Phos 73 40 - 120 unit/L [facility] Total Bilirubin 0.4 0.2 - 1.3 mg/dL [facility] Bili, Direct 0.1 0.0 - 0.3 mg/dL [facility] Estimated GFR 59 (L) >=60 [facility] Comment: This estimated GFR (eGFR) value [...] the following links into your internet browser. [email or web address] http://[employer]DHMCnkf Specimen Anatomical Collection Method Collection Time Receive d Time (Source) Location / / Volume Laterality Blood specimen 04/19/2016 3:18 PM 016 3:27 (specimen) EDT PM EDT Resulting Agency Comment Spec In Lab Maikel Rebolledo MD CHEMISTRY ORDERABLES Performing Organization Address City/State/[place] [address] documented in this encounter Visit Diagnoses Diagnosis ITP (idiopathic thrombocytopenic purpura ) Immune thrombocytopenic purpura documented in this encounter Care Teams Certified Dietary Manager Relationship Specialty Start Date End Date Kurtis Kingsley DO PCP - General 09/27/10 03/22/[address] [place] [address] documented as of this encounter
--- OUTSIDE RECORDS SUMMARY | 2022-08-02 13:00 | XMS_ITS | Encounter Summary ---
:1970 Author Organization [facility] [place] [address] Care Team Providers Name Role Phone SanchoKurtis mcdaniel Primary Care Provider Encounter Details Date Type Department Care Team Description 08/27/2017 Hospital Encounter Hematology and Thrombo cytopenia; Oncology at [facility] Non morbid obesity due to ex cess calories; [facility] [place] [address] Social History Tobacco Use Types Packs/Day [...] Visit Hematology and Oncology Maikel Rebolledo MD [facility] HEMATOLOGY/[place] [address] Norma Garrido APRN [facility] DR HEMATOLOGY-[place] [address] Marleen Reis MD [facility] DR HEMATOLOGY/[place] [address] documented as of this encounter Procedures Procedure Name Priority Date/Time Associated Diagnosis Comme nts HEMOGRAM STAT 08/27/2017 11:52 Thrombocytopenia Results for this AM EDT procedure are i n the results section. DIFFERENTIAL, STAT 08/27/2017 11:52 Thrombocytopenia Result s for this AUTOMATED AM EDT procedure are i n the results section. CBC (WITH DIFF) STAT 08/27/2017 11:52 Thrombocytopenia AM EDT documented in this encounter Results Differential, Automated (08/27/2017 11:52 AM EDT) P athologist Signature Neutrophils % 44.5 % [facility] Neutr Abs (ANC) 2.30 1.70 - [facility] 6.10 [facility] x10(3)/[facility] LABORATORY Lymphocytes % 43.1 % [facility] Lymphocytes Abs 2.2 0.9 - 3.2 [facility] x10(3)/[facility] LABORATORY Monocytes % 8.9 % [facility] Monocyte Abs 0.5 0.3 - 0.9 [facility] x10(3)/[facility] LABORATORY Eosinophils % 2.3 % [facility] Eosinophils Abs 0.1 0.0 - 0.4 [facility] x10(3)/[facility] LABORATORY Basophils % 0.6 % [facility] Basophils Abs 0.0 0.0 - 0.1 [facility] x10(3)/[facility] LABORATORY Immature Gran % 0.60 % [facility] Comment: Immature granulocytes(IG's)percentage an d absolute count will include metamyelocytes, myelocytes, and promyelo cytes. Blood smears from CBCs yielding IG's will be scanned manually for concor dance. If this scan disagrees with the automated IG or if promyelocytes are not ed, a manual differential will be performed. Cheli Gran Abs 0.03 0.00 - 0.04 x10(3)/[facility] MAR Y [facility] Specimen Anatomical Collection Method Collection Time Receive d Time (Source) Location / / Volume Laterality Blood specimen 08/27/2017 11:52 7 (specimen) AM EDT 12:10 PM EDT Resulting Agency Comment Spec In Lab Norma Quarles [place] [facility] HEMATOLOGY ORDERABLES Performing Organization Address City/State/[place] [address] (ABNORMAL) Hemogram (08/27/2017 11:52 AM EDT) Analysis Performed At Patho logist Time Signature WBC 5.2 4.0 - 9.5 [facility] x10(3)/[facility]ORATORY RBC 5.41 4.58 - [facility]54 [facility] x10(6)/[facility] Hemoglobin 15.9 13.7 - [facility] 16.5 gm/dL [facility] Hematocrit 44.3 40.5 - [facility] 48.5 % [facility] MCV 81.9 (L) 82.9 - [facility] 93.1 [facility] MCH 29.4 27.5 - [facility] 32.1 pg [facility] MCHC 35.9 (H) 32.0 - [facility] 35.[facility] gm/dL [facility] Platelets 78 (L) 145 - 357 [facility] x10(3)/[facility] LABOR[facility]ORY RDWSD 37.6 36.0 - [facility] 45.0 [facility] RDWCV 12.7 11.4 - [facility] 13.8 % [facility] MPV 11.7 7.6 - 12.9 [facility] LABORATORY nRBC % Auto 0.0 % [facility] nRBC Abs Auto 0.000 0.000 - [facility] 0.000 [facility] x10(3)/[facility] LABORATORY Specimen Anatomical Collection Method Collection Time Receive d Time (Source) Location / / Volume Laterality Blood specimen 08/27/2017 11:52 7 (specimen) AM EDT 12:10 PM EDT Resulting Agency Comment Spec In Lab Norma Garrido [employer] HEMATOLOGY ORDERABLES Performing Organization Address City/State/[place] [address] documented in this encounter Visit Diagnoses Diagnosis Thrombocytopenia Thrombocytopenia, unspecified Non morbid obesity due to excess calorie s Multiple lipomas Lipoma of unspecified site documented in this encounter Care Teams Electric Wirer Relationship Specialty Start Date End Date Kurtis Kingsley DO PCP - General 09/27/10 03/22/[address] [place] [address] documented as of this encounter
--- OUTSIDE RECORDS SUMMARY | 2022-08-02 13:00 | XMS_ITS | Encounter Summary ---
:1970 Author Organization [facility] [place] [address] Care Team Providers Name Role Phone Kurtis Kingsley Primary Care Provider Encounter Details Date Type Department Care Team Description 11/01/2016 Office Visit Hematology and Norma Garrido APRN [facility] DR HEMATOLOGY[place] [address] Idiopathic Oncology at [facility] Amor Mena MD [facility] DR HEMATOLOGY/[place] [address] thromb[place] [id number] Social History Tobacco Use Types Packs/Day Years Used Date Never Smoker Smokeless Tobacco: Never Used Alcohol Use Standard Drinks/Week Comments Yes 0 (1 standard drink = 0.6 oz pure alcoho l) Sex Assigned at Date Recorded Not on file documented as of this encounter Last Filed Vital Signs Vital Sign Reading Time Taken Comments Blood Pressure 140/80 11/01/2016 3:29 PM EST Pulse 78 11/01/2016 3:29 PM EST Temperature 36.5 ??C (97.7 ??F) 11/01/2016 3:29 PM EST Respiratory Rate 18 11/01/2016 3:29 PM EST Oxygen Saturation 99% 11/01/2016 3:29 PM EST Inhaled Oxygen Concentration - - Weight 94.4 kg (208 lb 3.2 oz) 11/01/2016 3:29 PM EST Height 178 cm (5' 10.08) 11/01/2016 3:29 PM EST Body Mass Index 29.81 11/01/2016 3:29 PM EST documented in this encounter Progress Notes Amor Mena MD - 11/01/2016 4:00 PM EST Images from the original [...] Mr Shipman presents to clinic today for follow-up. 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 Complains of right sided headaches increasing over the last 3 months that he believes are stress related. He also complains right shoulder pain which started just a few daysago. He denies bleeding, bruising, or petechiae. He does complain of chronic heartburn symptoms. He otherwise denies CP, SOB, cough, fever/chills, n/v/d/c, blood in his urine or stool. Review of systems: Constitutional: as above Eyes: negative Respiratory: Negative. Cardiovascular: Negative. Gastrointestinal: GERD Genitourinary: Negative. Skin: Negative. Neurological: as above [...] visit. 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 - Smoking: never - Alcohol: rarely - He lives in [place], [place] with his and 3 kids. Family History: - Mother: was tested negative for PLT antigen 1; never had low plt count; - Father: htn, dlp - Siblings: brother and sister: both healthy; His sister also had low plt count at and was transfused; no issues now. Brother is a heel attacher wood at [employer]. 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 Physical Exam: BP 140/80 (Patient Position: Sitting) Pulse 78 Temp 36.5 ??C (97.7 ??F) (Temporal) Resp 18 Ht 178 cm(5' 10.08) Wt 94.4 kg (208 lb 3.2 oz) SpO2 99% BMI 29.81 kg/m2 GA: pleasant; cooperative; no apparent distress. HEENT: no tenderness over sinuses; oral mucosa - moist; no oral lesions; neck supple; CVS : S1, S2 +, RRR, no murmurs or gallops RS :CTABL, no wheeze or crackles. Lymphatic: no palpable adenopathy GI: BS +, Soft, NT/ND, no hepatosplenomegaly Neuro: no focal deficits. Skin: warm, dry, no rash; no petechiae or bruising; Musculoskeletal: no ttp on spine Ext: No leg swelling or calf tenderness; Psychiatric: normal affect and mood Labs: Recent Results (from the past 24 hour(s)) Hemogram Result Value Ref Range WBC 5.8 4.0 - 9.5 x10(3)/mcL RBC 5.51 4.58 - 5.54 x10(6)/mcL Hemoglobin 16.1 13.7 - 16.5 gm/dL Hematocrit 45.9 40.5 - 48.5 % MCV 83.3 82.9 - 93.1 fL MCH 29.2 27.5 - 32.1 pg MCHC 35.1 32.0 - 35.7 gm/dL Platelets 92 (L) 145 - 357 x10(3)/mcL RDWSD 37.2 36.0 - 45.0 fL RDWCV 12.3 11.4 - 13.8 % MPV 11.7 7.6 - 12.9 fL nRBC % Auto 0.0 % nRBC Abs Auto 0.000 0.000 - 0.000 x10(3)/mcL Differential, Automated Result Value Ref Range Neutrophils % 52.7 % Neutr Abs (ANC) 3.07 1.70 - 6.10 x10(3)/mcL Lymphocytes % 36.9 % Lymphocytes Abs 2.2 0.9 - 3.2 x10(3)/mcL Monocytes % 7.7 % Monocyte Abs 0.4 0.3 - 0.9 x10(3)/mcL Eosinophils % 1.7 % Eosinophils Abs 0.1 0.0 - 0.4 x10(3)/mcL Basophils % 0.5 % Basophils Abs 0.0 0.0 - 0.1 x10(3)/mcL Immature Gran % 0.50 % Cheli Gran Abs 0.03 0.00 - 0.04 x10(3)/mcL Radiology/Studies: None to review Assessment/Plan: 45 y/o M with presenting for evaluation of thrombocytopenia. His work up did not reveal any causative factor. #. Thrombocytopenia -Platelet count today continues to slowly improve. -No complaints of bleeding / bruising / petechiae. -No indication for therapy at this time. -Will continue to monitor with CBC and return clinic visit in 4 months AMOR MENA MD Hematology and Oncology Fellow documented in this encounter Plan of Treatment Upcoming Encounters Date Type Specialty Care Team Description 09/06/2022 Appointment Hematology and Oncology 09/06/2022 Office Visit Hematology and Oncology Maikel Rebolledo MD [facility] HEMATOLOGY/[place] [address] Norma Garrido APRN [facility] HEMATOLOGY-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
--- OUTSIDE RECORDS SUMMARY | 2022-08-02 13:00 | XMS_ITS | Encounter Summary ---
:1970 Author Organization [facility] [place] [address] Care Team Providers Name Role Phone SanchoKurtis mcdaniel Primary Care Provider Encounter Details Date Type Department Care Team Description 01/21/2018 Telephone Hematology and Oncology at Maikel Salazar MD [facility] Carline johnson HEMATOLOGY/[place] [address] DEPT. [phone] [place], [place] [address] (Wo rk) Social History Tobacco Use Types Packs/Day Years Used Date Never Smoker Smokeless Tobacco: Never Used Alcohol Use Standard Drinks/Week Comments Yes 0 (1 standard drink = 0.6 oz pure alcoho l) Sex Assigned at Date Recorded Not on file documented as of this encounter Miscellaneous Notes Telephone Encounter - Maikel Rebolledo MD - 01/21/2018 4:10 PM EDT Staff January 21, 2018 Patient called since he had a CAT scan done for abdominal pain and a colonoscopy. Colonoscopy was normal. The CAT scan demonstrated an enlarged spleen. He was told by his primary care doctor that the spleen is about 2 times normal. I spoke with the patient today. I emphasized that he needs to be cautious with his activity level and no playing rugby, football etc. In addition, I also emphasized that typically with ITP the spleen is small, not enlarged. This would make the think of other possibilities including an infiltrative process such as amyloid or sarcoidosis, or possibly lymphoma. We will just need to keep this enlarged spleen in mind as we move forward to monitor his platelet counts since differential diagnosis is different for thrombocytopenia with enlarged spleen. Maikel Rebolledo MD documented in this encounter Plan of Treatment Upcoming Encounters Date Type Specialty Care Team Description 09/06/2022 Appointment Hematology and Oncology 09/06/2022 Office Visit Hematology and Oncology Maikel Rebolledo MD [facility] DR HEMATOLOGY/[place] [address] Norma Garrido APRN [facility] DR HEMATOLOGY[place] [address] Marleen Reis MD [facility] DR HEMATOLOGY/[place] [address] documented as of this encounter Visit Diagnoses Not on filedocumented in this encounter Care Teams Operating Room Orderly Relationship Specialty Start Date End Date Kurtis Kingsley DO PCP - General 09/27/10 03/22/[address] [place] [address] [address] [place] [address] documented as of this encounter
--- OUTSIDE RECORDS SUMMARY | 2022-08-02 13:00 | XMS_ITS | Encounter Summary ---
:1970 Author Organization [facility] [place] [address] Care Team Providers Name Role Phone Kurtis Kingsley DO Primary Care Provider Reason for Visit Reason Comments Advice Only Consultation (Routine) - Closed Specialty Diagnoses / Procedures Referred By Contact Refer red To Contact Hematology and Diagnoses thrombocytopenia f/h of ITP Kurtis Kingsley DO [facility] Hem Onc 3k Oncology [address] [facility] KATH [address] [place], [place] [address] [place] [phone] Phone: Fax: Referral ID Status Reason Start Date Expiration Date Visits V isits Requested Authorized [id number] Closed Consult, 10/21/2015 10/20/2016 1 1 [facility] Encounter Details Date Type Department Care Team Description 11/03/2015 Office Visit Hematology and Oncology Ivan Brooke MD [facility] DR HEMATOLOGY/[place] [address] Thrombocytopenia at [facility] Norma Garrido APRN [facility] HEMATOLOGY[place] [address] [facility] [place] [address] Social History Tobacco Use Types Packs/Day Years Used Date Never Smoker Smokeless Tobacco: Never Used Alcohol Use Standard Drinks/Week Comments Yes 0 (1 standard drink = 0.6 oz pure alcoho l) Sex Assigned at Date Recorded Not on file documented as of this encounter Last Filed Vital Signs Vital Sign Reading Time Taken Comments Blood Pressure 148/84 11/03/2015 3:00 PM EST Pulse 100 11/03/2015 3:00 PM EST Temperature 36.4 ??C (97.5 ??F) 11/03/2015 3:00 PM EST Respiratory Rate 18 11/03/2015 3:00 PM EST Oxygen Saturation 99% 11/03/2015 3:00 PM EST Inhaled Oxygen Concentration - - Weight 95.3 kg (210 lb) 11/03/2015 3:00 PM EST Height 176 cm (5' 9.29) 11/03/2015 3:00 PM EST Body Mass Index 30.75 11/03/2015 3:00 PM EST documented in this encounter Progress Notes Ivan Brooke MD - 11/03/2015 3:42 PM EST Hematology/BMT Staff Addendum to consultation: We are seeing Prasanna at the request of Dr Kurtis Kingsley for isoalted thrombocytopenia I have seen and evaluated the patient, reviewed all pertinent clinical, laboratory and radiographic data and discussed the case in depth on rounds with Dr Chavis today. I agree with the findings, assessment and plan as outlined in today's note, with any changes or add'l comments included below. The pt never recalls having a CBC and was never told he had a low platelet count. He dose note that his platelet count was 2K at and his mom's platelet count was normal. He rec'd Vit K and had excessive bleeding requiring tx to [place]. Similar situation with his sister, but not his brother. (SUBS EQUENTLY, HIS MOTHER WAS SHOWN TO BE POLLO-1 NEG - C/W ALLOIMMUNE THROMBOCYTOPENIA). He visited local ER for spontaneaous thigh hematoma 6 weeks ago. At that time, it was noted that hisplatelet count was 80K. MRI of knee showed no hematoma. He was sent here for further evaluation. Prasanna has experienced past surgeries w/o bleeding Recent spine surgery w/i past 6 mths Assessment Prasanna likely has two things going on - inclduing alloimmune thrombocytopenia at [facility] time ofhis . Currently, his thrombocytopenia is likely unrealted and due to another cause. Differential diagnosis is broad and included Meds (OTC meds, ETOH), infection (Hep B, C, EBV, CMV, HIV, parvo, ), primary marrow disorder, rheum ds, nutritional def (B12, MMA, folate), abn coag (DIC. PT/PTT), smear review to r/o clumping. We will perform a limited w/u using blood tests and see the pt back in 2 weeks. If all tests are neg, he may need a marrow assessment to r/o NHL I reviewed all of the above with the pt in detail. Quirino Brooke MD Staff Partha Eisenberg - 11/03/2015 3:00 PM EST Images from the original note were not included. Attending Physician: Referring physician: Kurtis Durbin Reason for referral: Thrombocytopenia HPI: 45 y/o male presenting for evaluation of thrombocytopenia. He reports that his Plt count was 2k at . He had extensive bleeding after vit K inj site for which he was transferred to [facility] where he received plt transfusion. His younger sister also had thrombocytopenia at requiring plt transfusion. His older brother didn't have anyissues. His mother carried a medical alert bracelet stating that she is negative for HPA-1 and she never had any thrombocytopenia. Prasanna didn't have any plt issues since then until recently. Around 6 weeks ago, he noticed a big bruise on his left thigh with swelling of left knee for which he was evaluated at a local ED. He denies any trauma to his leg at that time. His labs at that time showed plt count of around 85K. WBC: 5.45K, plt: 83K, Hgb: 17g/dL PT: 13.3, D.dimer:159 BUN/Sr.Cr: 21/1.40 Hep C antibody: negative. He was referred to orthopedic surgeon for his knee who did the MRI and was told that there is no hematoma of the knee. The swelling was felt to be a lipoma just right above the knee. Pt reports that his last CBC was few years ago and does not recollect ever being told that his plt count was abnormal. He had one knee surgery for torn meniscus and 2 back surgeries for lumbar disc disease. Dr.Joseph Hall is his spine surgeon and the surgeries were in 12/2012 and 12/2014. He does not remember having CBC prior to these spine surgeries. He feels well otherwise except for decreased energy levels over the past couple of months. 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 - Denies any easy bleeding or bruising. No petechiae or bruises or nose or gum bleeds; no GI/ bleeds. - No fevers or night sweats; no weight loss; - No s/s of any viral infection in the past few months. No palpable swellings that he noted anywhere. Rest of the ROS is negative. Review of systems: Constitutional: as above Eyes: Negative. Respiratory: Negative. Cardiovascular: Negative. Gastrointestinal: Negative. Genitourinary: Negative. Skin: Negative. Neurological: Negative Hematological: as above Psychiatric/Behavioral: Negative. Musculoskeletal:negative Past Medical History: - Lipomas - Rest less leg syndrome - lasik surgery for vision correction - Knee surgery for torn meniscus and back surgeries : in 2012, 12/2014; Allergies: Pollen,micronized Medications: Current Outpatient Prescriptions on File Prior to Visit Medication Sig Dispense Refill ??? pramipexole (MIRAPEX) 0.25 mg tablet Take 0.5 mg by mouth daily. ??? gabapentin (NEURONTIN) 300 mg capsule Take 300 mg by mouth daily. ??? FEXOFENADINE HCL (DAVID ORAL) ??? cycloSPORINE (RESTASIS) 0.05 % ophthalmic emulsion No current facility-administered medications on file prior to visit. 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 - Smoking: never - Alcohol: rarely - He lives in [place], [place] with his and 3 kids. Family History: - Mother: was tested negative for PLT antigen 1; never had low plt count; - Father: htn, dlp -Siblings: brother and sister: both healthy; His sister also had low plt count at and was transfused; no issues now. Brother is a electric appliance installer at [employer]. 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 Vital Signs: BP 148/84 mmHg Pulse 100 Temp(Src) 36.4 ??C (97.5 ??F) (Temporal) Resp 18 Ht 176 cm (5' 9.29) Wt 95.255 kg (210 lb) BMI 30.75 kg/m2 SpO2 99% Physical Exam: GA: pleasant; cooperative; no apparent distress. HEENT: oral mucosa - moist; no oral lesions; neck supple; CVS : S1, S2 +, RRR, no murmurs or gallops RS :CTABL, no wheeze or crackles. Lymphatic: no palpable adenopathy GI: BS + ,Soft, NT/ND, no hepatosplenomegaly Neuro: no focal deficits. Skin: warm, dry, no rash; no petechiae or bruising; Musculoskeletal:no ttp on spine/ribs; lipomas on left arm, left lower back, and just above left knee; Ext: No leg swelling or calf tenderness; Psychiatric: normal affect and mood Labs: No results found for this or any previous visit (from the past 24 hour(s)). Radiology/Studies: Pathology: Assessment/Plan: 45 y/o M with presenting for evaluation of thrombocytopenia. His history is suggestive of alloimmune thrombocytopenia at which as expected has resolved soon after . His thrombocytopenia now is a different issue. Rest of his CBC is unremarkable. So, suspicion for myeloprofilerative/dysplastic disorders is low at this time. The differential for his thrombocytopenia includes any new meds including OTC which is ruled out, nutritional deficiencies, viral infections, auto immune rheumatological disorders, ITP etc. His PT and D dimer are normal. So, DIC is unlikely. Wedo not have suspicion for TTP as his Hgb is normal and he does not look sick. We will get some labs today to further evaluate for the etiology. We will also check for H.pylori as it is shown to be associated with ITP. - LABS today: CBC, Retic count, Peripheral smear, CMP, HIV, hep panel, EBV, CMV, adeno PCR, MO, RF,B12, folate, MMA, stool H pylori. - Will get his prior CBC records from Dr.Joseph Hall's office. - We will see him back in 2-3 weeks to review the results or sooner if needed. We reviewed our impression and plans with Prasanna and all his Qs were answered. Pt was seen and discussed with . Partha Eisenberg MD. Fellow, Hematology/Oncology Pager: [phone] documented in this encounter Miscellaneous Notes Addendum Note - Ivan Brooke MD - 11/04/2015 12:33 PM EST Addended by: IVAN BROOKE on: 11/04/2015 12:33 PM Modules accepted: Level of Service documented in this encounter Plan of Treatment Upcoming Encounters Date Type Specialty Care Team Description 09/06/2022 Appointment Hematology and Oncology 09/06/2022 Office Visit Hematology and Oncology Ivan Brooke MD [facility] HEMATOLOGY/[place] [address] [facility] [address] HEMATOLOGY[place] [address] [facility] DR HEMATOLOGY/[place] [address] documented as of this encounter Procedures Procedure Name Priority Date/Time Associated Diagnosis Comme nts SMEAR REVIEW REPORT Routine 11/03/2015 5:30 Resul ts for this PM EST procedure are i n the results section. PERIPHERAL SMEAR Routine 11/03/2015 4:35 Thrombocytopenia Resu lts for this REVIEW PM EST procedure are i n the results section. ADENOVIRUS PCR, Routine 11/03/2015 4:35 Thrombocytopenia Resul ts for this QUANTITATIVE PM EST procedure are i n the results section. HEMOGRAM Routine 11/03/2015 4:35 Thrombocytopenia Results for this PM EST procedure are i n the results section. DIFFERENTIAL, Routine 11/03/2015 4:35 Thrombocytopenia Results for this AUTOMATED PM EST procedure are i n the results section. EBV PCR QUANTITATIVE Routine 11/03/2015 4:35 Thrombocytopenia Results for this PM EST procedure are i n the results section. METHYLMALONIC ACID, Routine 11/03/2015 4:35 Thrombocytopenia R esults for this SERUM PM EST procedure are i n the results section. HEPATITIS B CORE Routine 11/03/2015 4:35 Thrombocytopenia Resu lts for this ANTIBODY, TOTAL PM EST procedure ar e in the results section. CMV PCR, QUANTITATIVE Routine 11/03/2015 4:35 Thrombocytopenia Results for this PM EST procedure are i n the results section. HIV SCREEN, 4TH Routine 11/03/2015 4:35 Thrombocytopenia Resul ts for this GENERATION PM EST procedure are i n ([facility]/APD/[facility]) the resul ts section. HEPATITIS B SURFACE Routine 11/03/2015 4:35 Thrombocytopenia R esults for this ANTIGEN PM EST procedure are i n the results section. RETICULOCYTE COUNT Routine 11/03/2015 4:35 Thrombocytopenia Re sults for this PM EST procedure are i n the results section. CBC (WITH DIFF) Routine 11/03/2015 4:35 Thrombocytopenia PM EST RHEUMATOID FACTOR, Routine 11/03/2015 4:35 Thrombocytopenia Re sults for this QUANT PM EST procedure are i n the results section. MO Routine 11/03/2015 4:35 Thrombocytopenia Results for this PM EST procedure are i n the results section. FOLATE, SERUM Routine 11/03/2015 4:35 Thrombocytopenia Results for this PM EST procedure are i n the results section. VITAMIN B12 Routine 11/03/2015 4:35 Thrombocytopenia Results for this PM EST procedure are i n the results section. COMPREHENSIVE Routine 11/03/2015 4:35 Thrombocytopenia Results for this METABOLIC PANEL PM EST procedure ar e in (NON-FASTING) the results section. documented in this encounter Results Smear Review Report (11/03/2015 5:30 PM EST) Component Value Ref Test Analysis Performed At [facility] Method Time Signature Smear Review [id number] ?Location: [address] [place] [address] The signing pathologist has (i) examined the relevant preparation(s) for the specimen(s) and (ii) rendered or confirmed the diagnosis(es) . . ? ear Review DIAGNOSIS Thrombocytopenia. see discussion 11/04/15 SRINIVAS 11/04/15 Verified by: ? Eva CLAYTON, Maldonado ?Hematopathologist ?(Electronic Signature ) The attending pathologist whose signature appears on this re port has reviewed all diagnostic slides and has edited the gross and/ or microscopic portion of the report in brie dering the final pathologic diagnosis. DISCUSSION WBC 4.45K/ul; RBC 5.18p185/ul; Hgb 15.8; MCV 83; RDW 12.6; P LT 94K/ul There is no anemia. ??The re d blood cells show generally normal morphology. ?? The white blood cells show some react george lymphocytes, but otherwise show normal morphology. Platelets are decreased and show normal platelet morphology . Thrombocytopenia can be seco ndary to medications, inflammatory/infectious conditions, nutritional deficiencies, I TP. There is no diagnostic morphologic pathology in this smear to explain thrombocytopenia. ADDITIONAL STUDIES Not performed CLINICAL INFORMATION thrombocytopenia Specimen (Source) Anatomical Collection Method Collection Time Re ceived Time Location / / Volume Laterality 11/03/2015 5:30 PM EST Ivna Brooke MD PATHOLOGY/CYTOLOGY ORDERABLE S Performing Organization Address City/State/ZIP [place] [address] CERNER MILLENNIUM Differential, Automated (11/03/2015 4:35 PM EST) athologist Signature Neutrophils % 57.0 % CERNER MILLENNIUM Neutr Abs (ANC) 2.53 1.50 - CERNER 6.30 MILLENNIUM x10(3)/mcL Lymphocytes % 32.1 % CERNER MILLENNIUM Lymphocytes Abs 1.4 1.0 - 3.6 CERNER x10(3)/mcL MILLENNIUM Monocytes % 8.5 % CERNER MILLENNIUM Monocyte Abs 0.4 0.2 - 1.0 CERNER x10(3)/mcL MILLENNIUM Eosinophils % 1.8 % CERNER MILLENNIUM Eosinophils Abs 0.1 0.0 - 0.5 CERNER x10(3)/mcL MILLENNIUM Basophils % 0.4 % CERNER MILLENNIUM Basophils Abs 0.0 0.0 - 0.2 CERNER x10(3)/mcL MILLENNIUM Immature Gran % 0.20 % CERNER MILLENNIUM Comment: Immature granulocytes(IG's)percentage an d absolute count will include metamyelocytes, myelocytes, and promyelo cytes. Blood smears from CBCs yielding IG's will be scanned manually for concor dance. If this scan disagrees with the automated IG or if promyelocytes are not ed, a manual differential will be performed. Cheli Gran Abs 0.01 0.00 - 0.05 x10(3)/mcL CER NER MILLENNIUM Specimen Anatomical Collection Method Collection Time Receive d Time (Source) Location / / Volume Laterality Blood specimen 11/03/2015 4:35 PM 015 4:49 (specimen) EST PM EST Resulting Agency Comment Spec In Lab Ivan Brooke MD HEMATOLOGY ORDERABLES Performing Organization Address City/State/[place] [address] CERNER MILLENNIUM (ABNORMAL) Hemogram (11/03/2015 4:35 PM EST) P athologist Signature WBC 4.4 4.0 - 10.0 CERNER x10(3)/mcL MILLENNIUM RBC 5.31 4.63 - 6.08 CERNER x10(6)/mcL MILLENNIUM Hemoglobin 15.8 13.7 - 17.5 CERNER gm/dL MILLENNIUM Hematocrit 44.2 40.0 - 51.0 CERNER % MILLENNIUM MCV 83.2 79.0 - 92.0 CERNER fL MILLENNIUM MCH 29.8 25.6 - 32.2 CERNER pg MILLENNIUM MCHC 35.7 32.0 - 36.5 CERNER gm/dL MILLENNIUM Platelets 94 (L) 145 - 370 CERNER x10(3)/mcL MILLENNIUM RDWSD 37.6 35.0 - 46.0 CERNER fL MILLENNIUM RDWCV 12.6 10.9 - 14.4 CERNER % MILLENNIUM MPV 11.6 9.0 - 12.0 CERNER fL MILLENNIUM Specimen Anatomical Collection Method Collection Time Receive d Time (Source) Location / / Volume Laterality Blood specimen 11/03/2015 4:35 PM 015 4:49 (specimen) EST PM EST Resulting Agency Comment Spec In Lab Ivan Brooke MD HEMATOLOGY ORDERABLES Performing Organization Address City/[facility]/ZIP Code Phon e Number [place] [phone] CERNER MILLENNIUM Peripheral Smear Review (11/03/2015 4:35 PM EST) [facility] Method Time Signature Periph Smear See Comment CERNER Rev MILLENNIUM Comment: When completed by the Pathologist, repor [id number] will display under Hematopathology Reports. Specimen Anatomical Collection Method Collection Time Receive d Time (Source) Location / / Volume Laterality Blood specimen 11/03/2015 4:35 PM 015 4:49 (specimen) EST PM EST Resulting Agency Comment Spec In Lab Ivan Brooke MD HEMATOLOGY ORDERABLES Performing Organization Address City/[facility]/ZIP [place] [address] CERNER MILLENNIUM (ABNORMAL) Reticulocyte Count (11/03/2015 4:35 PM EST) [facility] Method Time Signature Retic Ct % 2.7 (H) 0.5 - 2.4 CERNER % MILLENNIUM Retic Ct Abs 0.140 (H) 0.027 - CERNER 0.095 MILLENNIUM x10(6)/mc L Immature Retic% 4.1 2.3 - CERNER 15.9 % MILLENNIUM Reticulated Hgb 34.6 28.5 - CERNER 38.9 pg MILLENNIUM Plat Immature % 3.0 0.0 - 7.4 CERNER % MILLENNIUM Specimen Anatomical Collection Method Collection Time Receive d Time (Source) Location / / Volume Laterality Blood specimen 11/03/2015 4:35 PM 015 4:49 (specimen) EST PM EST Resulting Agency Comment Spec In Lab Ivan Brooke MD HEMATOLOGY ORDERABLES Performing Organization Address City/[facility]/ZIP Code Phon e Number [place] [phone] CERNER MILLENNIUM Adenovirus PCR, Quantitative (11/03/2015 4:35 PM EST) Component Value Ref Test Analysis Performed At [facility] Range Method Time Signature Adenovirus PCR, CERNER Quantitative Test ? Result ?Flag ??Unit ? RefValue MILLENNIUM Adenovirus DNA, Quant Real-Time PCR ??Source ? BLOOD ??Adenovirus DNA, ?NO DNA DETECTED ? copies/mL ?QN PCR REFERENCE RANGE: <500 copies/mL This test was developed and its performance characteristics have been determined by [facility]. It has not been cleared or approved by the U.S. Food and Drug Administration. The FDA has determined that such clearance or approval is not necessary. Performance characteristics refer to the analytical performance of the test. Test Performed by: [facility], [address].. [id number] [place] [address] Specimen Anatomical Collection Method Collection Time Receive d Time (Source) Location / / Volume Laterality Fuentes Review 11/03/2015 4:35 PM 5 2:57 EST PM EST Comment: Specimen Type:->BLOOD Resulting Agency Comment Spec In Lab Ivan Brooke MD MICROBIOLOGY - GENERAL ORDER JESUS Performing Organization Address City/State/ZIP Code Phon e Number [facility] [address] CERNER MILLENNIUM EBV PCR Quantitative (11/03/2015 4:35 PM EST) [facility] Method Time Signature EBV NONE DETECTED. CERNER PCR,Quantitat MILLENNIUM george ?Lower limit of detection is 500 copies/mL. Comment: This test was developed and its performa nce characteristics determined by [facility]. It has not been cleared or approved by the FDA. The laboratory is regulated under CLIA a s qualified to perform high-complexity testing. This test is used for clinical purposes. It should not be regarded as investigational or for research. Specimen Anatomical Collection Method Collection Time Receive d Time (Source) Location / / Volume Laterality Blood specimen 11/03/2015 4:35 PM 015 5:05 (specimen) EST PM EST Resulting Agency Comment Spec In Lab Ivan Brooke MD IMMUNOLOGY ORDERABLES Performing Organization Address City/[facility] Code Phon e Number [address] [facility] CMV PCR, Quantitative (11/03/2015 4:35 PM EST) Patholo gist Method Time Signature CMV Quant <137 IU/mL [facility] (Numeric) [facility] CMV Quant Result: Not Detected [facility] (Interp) [facility] Sample: plasma Method: This quantitative real-time PCR assay was performed in the [facility] Molecular Pathology Laborato ry using ??FAVIAN?? AmpliPrep/FAVIAN?? TaqMan?? CMV Test ([employer] Linear Range: 137 IU/mL - 9, 100,000 IU/mL (2.14 log ? 6.96 log IU/mL) Limit of Detection: 91 IU/mL (1.96 log IU/mL) Specimen Anatomical Collection Method Collection Time Receive d Time (Source) Location / / Volume Laterality Blood specimen 11/03/2015 4:35 PM 015 (specimen) EST 11:55 AM EST Resulting Agency Comment Spec In Lab Ivan Brooke MD IMMUNOLOGY ORDERABLES Performing Organization Address City/[facility] Code Phon e Number [address] [facility] MO (11/03/2015 4:35 PM EST) P athologist Signature MO Neg Neg [facility] Specimen Anatomical Collection Method Collection Time Receive d Time (Source) Location / / Volume Laterality Blood specimen 11/03/2015 4:35 PM 015 7:50 (specimen) EST AM EST Resulting Agency Comment Spec In Lab Ivan Brooke MD IMMUNOLOGY ORDERABLES Performing Organization Address City/State/ZIP Code Phon e Number [address] CERNER MILLENNIUM Rheumatoid factor, quant (11/03/2015 4:35 PM EST) athologist Signature RF <10 <=14 IU/mL CERNER MILLENNIUM Specimen Anatomical Collection Method Collection Time Receive d Time (Source) Location / / Volume Laterality Blood specimen 11/03/2015 4:35 PM 015 4:49 (specimen) EST PM EST Resulting Agency Comment Spec In Lab Ivan Brooke MD IMMUNOLOGY ORDERABLES Performing Organization Address City/[facility]/ZIP Code Phon e Number [address] CERNER MILLENNIUM Methylmalonic acid, serum (11/03/2015 4:35 PM EST) [facility] Method Time Signature Methylmalonic Acid 0.18 <=0.40 CERNER nmol/mL MILLENNIUM Comment: Test Performed by: [place] [address] Landscaper: Jay Acosta II, M.D., Ph.D. Specimen Anatomical Collection Method Collection Time Receive d Time (Source) Location / / Volume Laterality Blood specimen 11/03/2015 4:35 PM 015 8:26 (specimen) EST AM EST Resulting Agency Comment Spec In Lab Ivan Brooke MD CHEMISTRY ORDERABLES Performing Organization Address City/[facility]/ZIP Code Phon e Number [address] CERNER MILLENNIUM Folate, serum (11/03/2015 4:35 PM EST) athologist Signature Folate Lvl 10.0 4.6 - 34.8 CERNER ng/mL MILLENNIUM Specimen Anatomical Collection Method Collection Time Receive d Time (Source) Location / / Volume Laterality Blood specimen 11/03/2015 4:35 PM 015 4:49 (specimen) EST PM EST Resulting Agency Comment Spec In Lab Ivan Brooke MD CHEMISTRY ORDERABLES Performing Organization Address City/State/ZIP [place] [address] [facility] MILL[facility] Vitamin B12 (11/03/2015 4:35 PM EST) P athologist Signature Vitamin B-12 [phone] 974 CERNER pg/mL MILLBANNERIUM Specimen Anatomical Collection Method Collection Time Receive d Time (Source) Location / / Volume Laterality Blood specimen 11/03/2015 4:35 PM 015 4:49 (specimen) EST PM EST Resulting Agency Comment Spec In Lab Ivan Brooke MD CHEMISTRY ORDERABLES Performing Organization Address City/State/ZIP Code Phon e Number [address] [facility] Hepatitis B Core Antibody, Total (11/03/2015 4:35 PM EST) Analysis Performed At Patho logist Time Signature Hep B Core Ab Negative Negative [facility] Specimen Anatomical Collection Method Collection Time Receive d Time (Source) Location / / Volume Laterality Blood specimen 11/03/2015 4:35 PM 015 4:49 (specimen) EST PM EST Resulting Agency Comment Spec In Lab Ivan Brooke MD CHEMISTRY ORDERABLES Performing Organization Address City/State/ZIP Code Phon e Number [address] [facility] Hepatitis B Surface Antigen (11/03/2015 4:35 PM EST) Analysis Performed At Patho logist Time Signature HepB Surface Negative Negative [facility] Specimen Anatomical Collection Method Collection Time Receive d Time (Source) Location / / Volume Laterality Blood specimen 11/03/2015 4:35 PM 015 4:49 (specimen) EST PM EST Resulting Agency Comment Spec In Lab Ivan Brooke MD CHEMISTRY ORDERABLES Performing Organization Address City/[facility]/ZIP [place] [address] [facility] HIV Screen, 4th Generation (11/03/2015 4:35 PM EST) Analysis Performed At Patho logist Time Signature HIV-1/2 Ab and Negative Negative CERNER Ag [facility] Comment: This 4th Generation HIV test screens for the presence of the HIV-1 p24 antigen as well as antibodies reactive against H IV-1 and HIV-2. A negative screen does not rule out an acute HIV infection. If acute HIV infection is suspected, testing should be repeated in 2 - 3 week s or HIV nucleic acid testing performed. Specimen Anatomical Collection Method Collection Time Receive d Time (Source) Location / / Volume Laterality Blood specimen 11/03/2015 4:35 PM 015 4:49 (specimen) EST PM EST Resulting Agency Comment Spec In Lab Ivan Brooke MD IMMUNOLOGY ORDERABLES Performing Organization Address City/State/ZIP Code Phon e Number [place] [phone] C[facility]ER [facility] (ABNORMAL) Comprehensive metabolic panel (non-fasting) (11/03/2015 4:35 PM EST) athologist Signature Glucose Lvl 101 65 - 199 CERNER mg/dL [facility] Comment: Diabetes: >=200 mg/dL plus symp toms BUN 19 10 - 20 mg/dL CERNER MILLENNIU M Creatinine 1.26 0.80 - 1.50 mg/dL CERNER MILL ENNIUM Comment: Please note that the pediatric reference intervals supplied above were not validated at [facility]. Results from pediatri c patients should be interpreted in conjunction to the patient's age, height and muscle mass. Sodium 140 135 - 145 mmol/L CERNER LUCÍA NIUM Potassium 3.7 3.5 - 5.0 mmol/L CERNER LUCÍA NIUM Comment: Please note: ??Patients with WBC >100,00 0 may have falsely elevated Potassium levels. ??For accurate Potassium quantif ication in these patients send serum separator tube (gold top) for subsequent determinations. ??Contact the Clinical Chemistry Laboratory if there are any qu estions. Chloride 102 98 - 107 mmol/L CERNER MILLENN IUM CO2 22 22 - 31 mmol/L CERNER MILLENNI UM Anion Gap 16 (H) 5 - 15 mmol/L CERNER MILLENNIU M Calcium 9.1 8.5 - 10.5 mg/dL CERNER LUCÍA NIUM Total Protein 7.3 6.1 - 8.0 gm/dL CERNER MIL LENNIUM Albumin 4.6 3.2 - 5.2 gm/dL CERNER MILLENN IUM AST 24 0 - 39 unit/L CERNER ALISHAENNIU M ALT 40 0 - 55 unit/L CERNER MILLENNIU M Alk Phos 68 40 - 120 unit/L CERNER MILLENN IUM Total Bilirubin 0.4 0.2 - 1.3 mg/dL GIO M ILL[facility]NIUM Bili, Direct 0.1 0.0 - 0.3 mg/dL LIDANER MILL ENNIUM Estimated GFR >60 >=60 CERNER ALISHAENNIU M Comment: This estimated GFR (eGFR) value was [...] the following links into your internet browser. [email or web address] [email or web address] Specimen Anatomical Collection Method Collection Time Receive d Time (Source) Location / / Volume Laterality Blood specimen 11/03/2015 4:35 PM 015 4:49 (specimen) EST PM EST Resulting Agency Comment Spec In Lab Ivan Brooke MD CHEMISTRY ORDERABLES Performing Organization Address City/State/ZIP [place] [address] GIO MOREL documented in this encounter Visit Diagnoses Diagnosis Thrombocytopenia Thrombocytopenia, unspecified documented in this encounter Care Teams Social Media Content Manager Relationship Specialty Start Date End Date Kurtis Kingsley DO PCP - General 09/27/10 03/22/[address] [place] [address] documented as of this encounter
--- OUTSIDE RECORDS SUMMARY | 2022-08-02 13:00 | XMS_ITS | Encounter Summary ---
:1970 Author Organization [facility] [place] [address] Care Team Providers Name Role Phone Kurtis Kingsley Primary Care Provider Encounter Details Date Type Department Care Team Description 06/27/2016 Hospital Encounter Hematology and Oncology at [facility] [place] [address] Social History Tobacco Use Types Packs/Day Years [...] Maikel Rebolledo MD [facility] DR HEMATOLOGY/[place] [address] Norma Garrido APRN [facility] DR HEMATOLOGY[place] [address] Marleen Reis MD [facility] DR HEMATOLOGY/[place] [address] documented as of this encounter Procedures Procedure Name Priority Date/Time Associated Diagnosis Comme nts HEMOGRAM STAT 06/27/2016 12:17 Thrombocytopenia Results for this PM EDT procedure are i n the results section. DIFFERENTIAL, STAT 06/27/2016 12:17 Thrombocytopenia Result s for this AUTOMATED PM EDT procedure are i n the results section. CBC (WITH DIFF) STAT 06/27/2016 12:17 Thrombocytopenia PM EDT documented in this encounter Results Differential, Automated (06/27/2016 12:17 PM EDT) P athologist Signature Neutrophils % 51.2 % [facility] LABORATORY Neutr Abs (ANC) 2.51 1.50 - [facility] 6.30 [facility] x10(3)/[facility] LABORATORY Lymphocytes % 37.3 % [facility] LABORATORY Lymphocytes Abs 1.8 1.0 - 3.6 [facility] x10(3)/[facility] LABORATORY Monocytes % 7.9 % [facility] LABORATORY Monocyte Abs 0.4 0.2 - 1.0 [facility] x10(3)/[facility] LABORATORY Eosinophils % 2.4 % [facility] LABORATORY Eosinophils Abs 0.1 0.0 - 0.5 [facility] x10(3)/[facility] LABORATORY Basophils % 0.6 % [facility] LABORATORY Basophils Abs 0.0 0.0 - 0.2 [facility] x10(3)/[facility] LABORATORY Immature Gran % 0.60 % [facility] LABORATORY Comment: Immature granulocytes(IG's)percentage an d absolute count will include metamyelocytes, myelocytes, and promyelo cytes. Blood smears from CBCs yielding IG's will be scanned manually for concjustus dansimon. If this scan disagrees with the automated IG or if promyelocytes are not ed, a manual differential will be performed. Cheli Gran Abs 0.03 0.00 - 0.05 x10(3)/[facility] LABORATORY Specimen Anatomical Collection Method Collection Time Receive d Time (Source) Location / / Volume Laterality Blood specimen 06/27/2016 12:17 6 (specimen) PM EDT 12:25 PM EDT Resulting Agency Comment Spec In Lab Maikel Rebolledo MD HEMATOLOGY ORDERABLES Performing Organization Address City/State/[place] [address] (ABNORMAL) Hemogram (06/27/2016 12:17 PM EDT) P athologist Signature WBC 4.9 4.0 - 10.0 [facility] x10(3)/[facility] LABORATORY RBC 5.78 4.63 - [facility] 6[facility]08 [facility] x10(6)/[facility] LABORATORY Hemoglobin 16.3 13.7 - [facility] 17.5 gm/dL [facility] LABORATORY Hematocrit 47.8 40.0 - [facility] 51.0 % [facility] LABORATORY MCV 82.7 79.0 - [facility] 92.0 [facility] LABORATORY MCH 28.2 25.6 - [facility] 32.2 pg [facility] LABORATORY MCHC 34.1 32.0 - [facility] 36.5 gm/dL [facility] LABORATORY Platelets 87 (L) 145 - 370 [facility] x10(3)/[facility] LABORATORY RDWSD 37.6 35.0 - [facility] 46.0 [facility] LABORATORY RDWCV 12.5 10.9 - [facility] 14.4 % [facility] LABORATORY MPV 11.3 9.0 - 12.0 [facility] LABORATORY nRBC % Auto 0.0 % [facility] LABORATORY nRBC Abs Auto 0.000 0.000 - [facility] 0.012 [facility] x10(3)/[facility] LABORATORY Specimen Anatomical Collection Method Collection Time Receive d Time (Source) Location / / Volume Laterality Blood specimen 06/27/2016 12:17 6 (specimen) PM EDT 12:25 PM EDT Resulting Agency Comment Spec In Lab Maikel Rebolledo MD HEMATOLOGY ORDERABLES Performing Organization Address City/State/[place] [address] documented in this encounter Visit Diagnoses Diagnosis Thrombocytopenia Thrombocytopenia, unspecified documented in this encounter Care Teams Advance Scout Relationship Specialty Start Date End Date Kurtis Kingsley DO PCP - General 09/27/10 03/22/[address] [place] [address] documented as of this encounter
--- OUTSIDE RECORDS SUMMARY | 2022-08-02 13:00 | XMS_ITS | Encounter Summary ---
:1970 Author Organization [facility] [place] [address] Care Team Providers Name Role Phone SanchoKurtis mcdaniel Primary Care Provider Encounter Details Date Type Department Care Team Description 07/11/2017 Hospital Encounter Hematology and Thrombo cytopenia; [place] [facility] Non morbid obesity due to ex cess calories; [facility] [place] [address] Social History Tobacco Use Types Packs/Day [...] Maikel Rebolledo MD [facility] HEMATOLOGY/[place] [address] [facility] [address] HEMATOLOGY-[place] [address] [facility] DR HEMATOLOGY/[place] [address] documented as of this encounter Procedures Procedure Name Priority Date/Time Associated Diagnosis Comme nts HEMOGRAM STAT 07/11/2017 1:32 PM Thrombocytope shama Results for this EDT Non morbid obesity procedure are in due to excess the results calories section. Multiple lipomas DIFFERENTIAL, STAT 07/11/2017 1:32 PM Thrombocytope shama Results for this AUTOMATED EDT Non morbid obesity procedure are in due to excess the results calories section. Multiple lipomas CBC (WITH DIFF) STAT 07/11/2017 1:32 PM Thrombocytope shama EDT Non morbid obesity due to excess calories Multiple lipomas documented in this encounter Results Differential, Automated (07/11/2017 1:32 PM EDT) athologist Signature Neutrophils % 42.1 % [facility] LABORATORY Neutr Abs (ANC) 1.82 1.70 - [facility] 6.10 [facility] x10(3)/[facility] LABORATORY Lymphocytes % 44.8 % [facility] LABORATORY Lymphocytes Abs 1.9 0.9 - 3.2 [facility] x10(3)/[facility] LABORATORY Monocytes % 9.9 % [facility] LABORATORY Monocyte Abs 0.4 0.3 - 0.9 [facility] x10(3)/[facility] LABORATORY Eosinophils % 2.5 % [facility] LABORATORY Eosinophils Abs 0.1 0.0 - 0.4 [facility] x10(3)/[facility] LABORATORY Basophils % 0.5 % [facility] LABORATORY Basophils Abs 0.0 0.0 - 0.1 [facility] x10(3)/[facility] LABORATORY Immature Gran % 0.20 % [facility] LABORATORY Comment: Immature granulocytes(IG's)percentage an d absolute count will include metamyelocytes, myelocytes, and promyelo cytes. Blood smears from CBCs yielding IG's will be scanned manually for concor dance. If this scan disagrees with the automated IG or if promyelocytes are not ed, a manual differential will be performed. Cheli Gran Abs 0.01 0.00 - 0.04 x10(3)/[facility] LABORATORY Specimen Anatomical Collection Method Collection Time Receive d Time (Source) Location / / Volume Laterality Blood specimen 07/11/2017 1:32 PM 017 1:36 (specimen) EDT PM EDT Resulting Agency Comment Spec In Lab Norma Garrido APRN HEMATOLOGY ORDERABLES Performing Organization Address City/State/[place] [address] (ABNORMAL) Hemogram (07/11/2017 1:32 PM EDT) Analysis Performed At Patho logist Time Signature WBC 4.3 4.0 - 9.5 [facility] x10(3)/[facility] LABORATORY RBC 5.41 4.58 - [facility] 5[facility]54 [facility] x10(6)/[facility] LABORATORY Hemoglobin 16.1 13.7 - [facility] 16.5 gm/dL [facility] LABORATORY Hematocrit 44.2 40.5 - [facility] 48.5 % [facility] LABORATORY MCV 81.7 (L) 82.9 - [facility] 93.1 [facility] LABORATORY MCH 29.8 27.5 - [facility] 32.1 pg [facility] LABORATORY MCHC 36.4 (H) 32.0 - [facility] 35.7 gm/dL [facility] LABORATORY Platelets 56 (L) 145 - 357 [facility] x10(3)/[facility] LABORATORY RDWSD 37.2 36.0 - [facility] 45.0 [facility] RDWCV 12.6 11.4 - [facility] 13.8 % [facility] LABORATORY MPV 11.6 7.6 - 12.9 [facility] LABORATORY nRBC % Auto 0.0 % [facility] LABORATORY nRBC Abs Auto 0.000 0.000 - [facility] 0.000 [facility] x10(3)/[facility] LABORATORY Specimen Anatomical Collection Method Collection Time Receive d Time (Source) Location / / Volume Laterality Blood specimen 07/11/2017 1:32 PM 017 1:36 (specimen) EDT PM EDT Resulting Agency Comment Spec In Lab Norma Garrido APRN HEMATOLOGY ORDERABLES Performing Organization Address City/State/[place] [address] documented in this encounter Visit Diagnoses Diagnosis Thrombocytopenia Thrombocytopenia, unspecified Non morbid obesity due to excess calorie s Multiple lipomas Lipoma of unspecified site documented in this encounter Care Teams High Pressure Kettle Operator Relationship Specialty Start Date End Date Kurtis Kingsley DO PCP - General 09/27/10 03/22/[address] [place] [address] documented as of this encounter
--- OUTSIDE RECORDS SUMMARY | 2022-08-02 13:00 | XMS_ITS | Encounter Summary ---
:1970 Author Organization [facility] [place] [address] Care Team Providers Name Role Phone SanchoKurtis Primary Care Provider Reason for Visit Reason Onset Date Comments Results 01/04/2018 Encounter Details Date Type Department Care Team Description 01/04/2018 Telephone Hematology and Oncol ogy at [facility] [place] [address] Social History Tobacco Use Types Packs/Day Years Used Date Never Smoker Smokeless Tobacco: Never Used Alcohol Use Standard Drinks/Week Comments Yes 0 (1 standard drink = 0.6 oz pure alcoho l) Sex Assigned at Date Recorded Not on file documented as of this encounter Miscellaneous Notes Telephone Encounter - Jaida Crow RN - 01/04/2018 4:42 PM EST Message received from real estate legal secretary: Prasanna called, he said he had some tests run at [facility] and wanted to update us with the results. I have called over to [facility] to get the tests that were run. [phone] RN reviewed pt's labs from 12/18/17 plt = 75 stable compared to 10/24/18 plt = 84. RN spoke with pt who states he had a CT scan recently for left side pain and was found to have a spleen twice the size as a normal spleen. Pt would like to let Dr. Rebolledo know and see if there is anything Dr. Rebolledo thinks needs to be done. documented in this encounter Plan of Treatment Upcoming Encounters Date Type Specialty Care Team Description 09/06/2022 Appointment Hematology and Oncology 09/06/2022 Office Visit Hematology and Oncology Maikel Rebolledo MD [facility] DR HEMATOLOGY/[place] [address] Norma Garrido APRN [facility] DR HEMATOLOGY[place] [address] Marleen Reis MD [facility] DR HEMATOLOGY/[place] [address] documented as of this encounter Visit Diagnoses Not on filedocumented in this encounter Care Teams Salt Operator Relationship Specialty Start Date End Date Kurtis Kingsley DO PCP - General 09/27/10 03/22/[address] [place] [address] documented as of this encounter
--- OUTSIDE RECORDS SUMMARY | 2022-08-02 13:00 | XMS_ITS | Encounter Summary ---
:1970 Author Organization [facility] [place] [address] Care Team Providers Name Role Phone Kurtis Kingsley Primary Care Provider Reason for Visit Reason Comments Follow-up Encounter Details Date Type Department Care Team Description 04/19/2016 Office Visit Hematology and Oncology Maikel Brooke MD [facility] DR HEMATOLOGY/[place] [address] [place]rombocytopenia [place] [facility] [place] Norma Alejandra APRN [facility] [place]ATOLOG[place] [address] [facility] [place] [address] Social History Tobacco Use Types Packs/Day Years Used Date Never Smoker Smokeless Tobacco: Never Used Alcohol Use Standard Drinks/Week Comments Yes 0 (1 standard drink = 0.6 oz pure alcoho l) Sex Assigned at Date Recorded Not on file documented as of this encounter Last Filed Vital Signs Vital Sign Reading Time Taken Comments Blood Pressure 129/78 04/19/2016 4:21 PM EDT Pulse 91 04/19/2016 4:21 PM EDT Temperature 36.4 ??C (97.5 ??F) 04/19/2016 4:21 PM EDT Respiratory Rate - - Oxygen Saturation 99% 04/19/2016 4:21 PM EDT Inhaled Oxygen Concentration - - Weight 93 kg (205 lb 0.4 oz) 04/19/2016 4:21 PM EDT Height 177 cm (5' 9.69) 04/19/2016 4:21 PM EDT Body Mass Index 29.68 04/19/2016 4:21 PM EDT documented in this encounter Progress Notes Maikel Brooke MD - 04/19/2016 4:44 PM EDT Staff Addendum I have personally seen and evaluated the patient today.I also reviewed pertinent labs and radiographs. I reviewed plans with the patient with details of the palns outlined below. Platelets are stable at 83K. We will check a level in 3 mths and see us in 6 mths Pt is aware of the seriousness of low platelets. He wears an emergency bracelet Saurabh Brooke MD [facility] Norma Alejandra APRN - 04/19/2016 4:24 PM EDT Images from the original note [...] uncomplicated with no excessive bleeding. INTERIM HISTORY: Prasanna returns. He reports losing his peripheral vision acutely two weeks ago for 3-4 hours while hewas out shopping with his . He felt significant pressure behind his eyes during this time and the symptoms eventually resolved. He did not seek medical attention. He does have a local opthalmologist and had Lasik surgery in [place] in July 20. He has not had any notable side effects fromthe surgery except dry eyes. - No easy bleeding or bruising; no fevers of night sweats or weight loss; - No change in the energy level compared to last visit. 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 -Rest of the ROS is negative. Review of systems: Constitutional: as above Eyes: see above Respiratory: Negative. Cardiovascular: Negative. Gastrointestinal: Negative. Genitourinary: Negative. Skin: Negative. Neurological: as above Hematological: as above Psychiatric/Behavioral: Negative. Musculoskeletal:negative Past [...] .5 mg ??? FEXOFENADINE HCL (DAVID ORAL) ??? cycloSPORINE (RESTASIS) 0.05 % ophthalmic emulsion (Patient not taking: No sig reported) No current facility-administered medications on file prior to visit. 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 - Smoking: never - Alcohol: rarely - He lives in [place], [place] with his and 3 kids. Family History: - Mother: was tested negative for PLT antigen 1; never had low plt count; - Father: htn, dlp -Siblings: brother and sister: both healthy; His sister also had low plt count at and was transfused; no issues now. Brother is a digital imager at [employer]. 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 Vital Signs: BP 129/78 (Patient Position: Sitting) Pulse 91 Temp 36.4 ??C (97.5 ??F) (Temporal) Ht 177 cm (5' 9.69) Wt 93 kg (205 lb 0.4 oz) SpO2 99% BMI 29.68 kg/m2 Physical Exam: GA: pleasant; cooperative; no apparent [...] no petechiae or bruising; Musculoskeletal:no ttp on spine Ext: No leg swelling or calf tenderness; Psychiatric: normal affect and mood Labs: Recent Results (from the past 24 hour(s)) Comprehensive metabolic panel (non-fasting) Result Value Ref Range Glucose Lvl 84 65 - 199 mg/dL BUN 20 10 - 20 mg/dL Creatinine 1.33 0.80 - 1.50 mg/dL Sodium 140 135 - 145 mmol/L Potassium 4.0 3.5 - 5.0 mmol/L Chloride 101 98 - 107 mmol/L CO2 23 22 - 31 mmol/L Anion Gap 16 (H) 5 - 15 mmol/L Calcium 9.3 8.5 - 10.5 mg/dL Total Protein 7.4 6.1 - 8.0 gm/dL Albumin 4.9 3.2 - 5.2 gm/dL AST 19 0 - 39 unit/L ALT 37 0 - 55 unit/L Alk Phos 73 40 - 120 unit/L Total Bilirubin 0.4 0.2 - 1.3 mg/dL Bili, Direct 0.1 0.0 - 0.3 mg/dL Estimated GFR 59 (L) >=60 Hemogram Result Value Ref Range WBC 5.5 4.0 - 10.0 x10(3)/mcL RBC 5.65 4.63 - 6.08 x10(6)/mcL Hemoglobin 16.6 13.7 - 17.5 gm/dL Hematocrit 47.0 40.0 - 51.0 % MCV 83.2 79.0 - 92.0 fL MCH 29.4 25.6 - 32.2 pg MCHC 35.3 32.0 - 36.5 gm/dL Platelets 86 (L) 145 - 370 x10(3)/mcL RDWSD 38.4 35.0 - 46.0 fL RDWCV 12.9 10.9 - 14.4 % MPV 11.5 9.0 - 12.0 fL Differential, Automated Result Value Ref Range Neutrophils % 48.0 % Neutr Abs (ANC) 2.66 1.50 - 6.30 x10(3)/mcL Lymphocytes % 42.3 % Lymphocytes Abs 2.3 1.0 - 3.6 x10(3)/mcL Monocytes % 6.9 % Monocyte Abs 0.4 0.2 - 1.0 x10(3)/mcL Eosinophils % 2.0 % Eosinophils Abs 0.1 0.0 - 0.5 x10(3)/mcL Basophils % 0.4 % Basophils Abs 0.0 0.0 - 0.2 x10(3)/mcL Immature Gran % 0.40 % Cheli Gran Abs 0.02 0.00 - 0.05 x10(3)/mcL Radiology/Studies: None to review Pathology: Peripheral smear: DIAGNOSIS Thrombocytopenia. see discussion DISCUSSION There is no anemia. The red blood cells show generally normal morphology. The white blood cells showsome reactive lymphocytes, but otherwise show normal morphology. Platelets are decreased and show normal platelet morphology. Thrombocytopenia can be secondary to medications, inflammatory/infectious co nditions, nutritional deficiencies, ITP. There is no diagnostic morphologic pathology in this smear to explain thrombocytopenia. Assessment/Plan: 45 y/o M with presenting for evaluation of thrombocytopenia. His work up did not reveal any causative factor. His count is better today and he has not experienced any bleeding / bruising / petechiae. No indication for therapy at this time. Will continue to follow. Will repeat CBC in 3 months, follow up in 6 months. Pt knows to call with any concerning symptoms. NORMA ALEJANDRA, FLOOR WORKER Staff Addendum I have personally seen and evaluated the patient today.I also reviewed pertinent labs and radiographs. I reviewed plans with the patient with details of the palns outlined below. Platelets are stable at 83K. We will check a level in 3 mths and see us in 6 mths Pt is aware of the seriousness of low platelets. He wears an emergency bracelet Saurabh Brooke MD [facility] Trans[facility] documented in this encounter Miscellaneous Notes Addendum Note - Maikel Brooke MD - 04/20/2016 10:56 AM EDT Addended by: MAIKEL BROOKE on: 04/20/2016 10:56 AM Modules accepted: Level of Service documented in this encounter Plan of Treatment Upcoming Encounters Date Type Specialty Care Team Description 09/06/2022 Appointment Hematology and Oncology 09/06/2022 Office Visit Hematology and Oncology Maikel Brooke MD [facility] HEMATOLOGY/[place] [address] Norma Alejandra APRN [facility] [place] [address] Marleen Reis MD [facility] [place] [address] documented as of this encounter Visit Diagnoses Diagnosis Thrombocytopenia Thrombocytopenia, unspecified documented in this encounter Care Teams Client Service Coordinator Relationship Specialty Start Date End Date Kurtis Kingsley DO PCP - General 09/27/10 03/22/[address] [place] [address] documented as of this encounter
--- OUTSIDE RECORDS SUMMARY | 2022-08-02 13:00 | XMS_ITS | Encounter Summary ---
:1970 Author Organization [facility] [place] [address] Care Team Providers Name Role Phone SanchoKurtis mcdaniel Primary Care Provider Encounter Details Date Type Department Care Team Description 12/15/2015 Hospital Encounter Hematology and ITP (id iopathic thrombocytopenic purpura); Oncology at [facility] [place] [id number] Social History Tobacco Use Types Packs/Day Years [...] [facility] DR HEMATOLOGY/[place] [address] Norma Garrido APRN [facility] DR HEMATOLOGY-[place] [address] Marleen Reis MD [facility] DR HEMATOLOGY/[place] [address] documented as of this encounter Procedures Procedure Name Priority Date/Time Associated Diagnosis Comme nts HEMOGRAM Routine 12/15/2015 2:39 ITP (idiopathic Results f or this PM EST thrombocytopenic procedure a re in purpura) the results section. DIFFERENTIAL, Routine 12/15/2015 2:39 ITP (idiopathic Results for this AUTOMATED PM EST thrombocytopenic procedure a re in purpura) the results section. CBC (WITH DIFF) Routine 12/15/2015 2:39 ITP (idiopathic PM EST thrombocytopenic purpura) documented in this encounter Results Differential, Automated (12/15/2015 2:39 PM EST) P athologist Signature Neutrophils % 48.5 % CERNER MILLENNIUM Neutr Abs (ANC) 2.40 1.50 - CERNER 6.30 MILLENNIUM x10(3)/mcL Lymphocytes % 40.0 % CERNER MILLENNIUM Lymphocytes Abs 2.0 1.0 - 3.6 CERNER x10(3)/mcL MILLENNIUM Monocytes % 8.9 % CERNER MILLENNIUM Monocyte Abs 0.4 0.2 - 1.0 CERNER x10(3)/mcL MILLENNIUM Eosinophils % 2.0 % CERNER MILLENNIUM Eosinophils Abs 0.1 0.0 [...] Location / / Volume Laterality Blood specimen 12/15/2015 2:39 PM 016 2:49 (specimen) EST PM EST Resulting Agency Comment Spec In Lab Maikel Rebolledo MD HEMATOLOGY ORDERABLES Performing Organization Address City/[facility]/[place] [address] CERNER MILLENNIUM (ABNORMAL) Hemogram (12/15/2015 2:39 PM EST) P athologist Signature WBC 5.0 4.0 - 10.0 CERNER x10(3)/mcL MILLENNIUM RBC 5.57 4.63 - 6.08 CERNER x10(6)/mcL MILLENNIUM Hemoglobin 16.4 13.7 - 17.5 CERNER gm/dL MILLENNIUM Hematocrit 46.5 40.0 - 51.0 CERNER % MILLENNIUM MCV 83.5 79.0 - 92.0 CERNER fL MILLENNIUM MCH 29.4 25.6 - 32.2 CERNER pg MILLENNIUM MCHC 35.3 32.0 - 36.5 CERNER gm/dL MILLENNIUM Platelets 73 (L) 145 - 370 CERNER x10(3)/mcL MILLENNIUM RDWSD 38.8 35.0 - 46.0 CERNER fL MILLENNIUM RDWCV 12.9 10.9 - 14.4 CERNER % MILLENNIUM MPV 11.6 9.0 - 12.0 CERNER fL MILLENNIUM Specimen Anatomical Collection Method Collection Time Receive d Time (Source) Location / / Volume Laterality Blood specimen 12/15/2015 2:39 PM 016 2:49 (specimen) EST PM EST Resulting Agency Comment Spec In Lab Maikel Rebolledo MD HEMATOLOGY ORDERABLES Performing Organization Address City/[facility]/[place] [address] CERNER MILLENNIUM documented in this encounter Visit Diagnoses Diagnosis ITP (idiopathic thrombocytopenic purpura ) Immune thrombocytopenic purpura Thrombocytopenia Thrombocytopenia, unspecified documented in this encounter Care Teams [employer] Supervisor Relationship Specialty Start Date End Date Kurtis Kingsley DO PCP - General 09/27/10 03/22/[address] [place] [address] [address] [place] [address] documented as of this encounter
--- OUTSIDE RECORDS SUMMARY | 2022-08-02 13:00 | XMS_ITS | Encounter Summary ---
:1970 Author Organization [place] [address] Care Team Providers Name Role Phone Kurtis Kingsley Primary Care Provider Encounter Details Date Type Department Care Team Description 12/07/2015 External Results Hematology and Maikel Rebolledo ITP (i diopathic Oncology at [facility] MD [place] thrombocytopenic [facility] [place] HEMATOLOGY/ONCO [address] [address] [phone] [place] [address] Social History Tobacco Use Types Packs/Day Years [...] Oncology Maikel Rebolledo MD [facility] HEMATOLOGY/[place] [address] Norma Garrido APRN [facility] HEMATOLOGY-[place] [address] Marleen Reis MD [facility] DR HEMATOLOGY/[place] [address] documented as of this encounter Procedures Procedure Name Priority Date/Time Associated Diagnosis Comme nts CBC (WITH DIFF) STAT 12/02/2015 3:24 PM ITP (idiopathic Res ults for this EST thrombocytopenic purpura) pr ocedure are in the results section. documented in this encounter Results (ABNORMAL) CBC (with Diff) (12/02/2015 3:24 PM EST) [facility] gist Method Time Signature WBC 5.14 4.4 - 10.8 EXTERNAL LAB (External Lab) Hemoglobin 16.1 13.5 - EXTERNAL LAB (External 17.5 Lab) Hematocrit 44.5 40.0 - EXTERNAL LAB (External 50.0 Lab) Platelets 92 130 - 400 EXTERNAL LAB (EXTERNAL/ ABN) Neutr Abs (ANC) 2.65 1.2 - 6.7 EXTERNAL LAB (External Lab) Specimen (Source) Anatomical Collection Method Collection Time Re ceived Time Location / / Volume Laterality Blood specimen 12/02/2015 3:24 PM (specimen) EST Maikel Rebolledo MD HEMATOLOGY ORDERABLES Performing Organization Address City/State/ZIP Code Phon e Number EXTERNAL FACILITY EXTERNAL LAB documented in this encounter Visit Diagnoses Diagnosis ITP (idiopathic thrombocytopenic purpura ) Immune thrombocytopenic purpura documented in this encounter Care Teams Peanut Vendor Relationship Specialty Start Date End Date Kurtis Kingsley DO PCP - General 09/27/10 03/22/[address] [place] [address] documented as of this encounter
--- OUTSIDE RECORDS SUMMARY | 2022-08-02 13:00 | XMS_ITS | Encounter Summary ---
:1970 Author Organization [facility] [place] [address] Care Team Providers Name Role Phone Kurtis Kingsley Primary Care Provider Encounter Details Date Type Department Care Team Description 10/24/2017 Office Visit Hematology and Oncology Maikel Brooke MD [facility] DR HEMATOLOGY/[place] [address] Thrombocytopenia at [facility] [place] Norma Garrido APRN [facility] DR [place]EMATOLOGY[place] [address] [facility] [place] [address] Social History Tobacco Use Types Packs/Day Years Used Date Never Smoker Smokeless Tobacco: Never Used Alcohol Use Standard Drinks/Week Comments Yes 0 (1 standard drink = 0.6 oz pure alcoho l) Sex Assigned at Date Recorded Not on file documented as of this encounter Last Filed Vital Signs Vital Sign Reading Time Taken Comments Blood Pressure 122/80 10/24/2017 3:30 PM EST Pulse 81 10/24/2017 3:30 PM EST Temperature 36.4 ??C (97.5 ??F) 10/24/2017 3:30 PM EST Respiratory Rate 18 10/24/2017 3:30 PM EST Oxygen Saturation 97% 10/24/2017 3:30 PM EST Inhaled Oxygen Concentration - - Weight 96.2 kg (212 lb) 10/24/2017 3:30 PM EST Height 170.3 cm (5' 7.05) 10/24/2017 3:30 PM EST Body Mass Index 33.16 10/24/2017 3:30 PM EST documented in this encounter Progress Notes Maikel Brooke MD - 10/24/2017 3:30 PM EST Images from the original note [...] to clinic today for follow-up of his ITP.Prasanna denies bleeding, bruising or petechiae. Does not routinely see Dr. Kingsley as he does not like injections and he' worried he might need a shot or blood drawn. No other medical issues. Remainder of ROS neg. Review of systems: [...] to visit. 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 - Smoking: never - Alcohol: rarely - He lives in [place], [place] with his and 3 kids. Family History: - Mother: was tested negative for PLT antigen 1; never had low plt count; - Father: htn, dlp - Siblings: brother and sister: both healthy; His sister also had low plt count at and was transfused; no issues now. Brother is a software quality manager at [employer]. 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 Physical Exam: BP 122/80 (Patient Position: Sitting) Pulse 81 Temp 36.4 ??C (97.5 ??F) (Temporal) Resp 18 Ht 170.3 cm (5' 7.05) Wt 96.2 kg (212 lb) SpO2 97% BMI 33.16 kg/m2 GENERAL: Patient appears well and is in no acute distress. HEENT: NCAT . EOMI, PERRLA; anicteric, No conjunctival injection Sinuses non- tender. Oral pharynx isclear without erythema or exudate. NECK: Supple and without adenopathy or thyroid enlargement. CARDIAC: Regular rate and rhythm without S3, S4 or murmurs. LUNGS: Clear to auscultation bilaterally. No rales, rhonchi or wheezing. ABDOMEN: Soft, non-tender, non-distended, and without hepatosplenomegaly. Bowel sounds are normoactive. EXTREMITIES: No edema, cyanosis or clubbing. SKIN: No rashes or lesions. No bruises or petechiae. LYMPHADENOPATHY: No abnormal lymphadenopathy. MUSCULOSKELETAL: No pain on palpation of sternum, ribs or vertebral bodies. NEUROLOGICAL: Alert and oriented to person, place and time. Reflexes dec bu equal bilat; normal gait. No [facility]MN findings Labs: Recent Results (from the past 24 hour(s)) Hemogram Result Value Ref Range WBC 5.2 4.0 - 9.5 x10(3)/mcL RBC 5.38 4.58 - 5.54 x10(6)/mcL Hemoglobin 16.3 13.7 - 16.5 gm/dL Hematocrit 44.2 40.5 - 48.5 % MCV 82.2 (L) 82.9 - 93.1 fL MCH 30.3 27.5 - 32.1 pg MCHC 36.9 (H) 32.0 - 35.7 gm/dL Platelets 84 (L) 145 - 357 x10(3)/mcL RDWSD 38.3 36.0 - 45.0 fL RDWCV 12.8 11.4 - 13.8 % MPV 11.5 7.6 - 12.9 fL nRBC % Auto 0.0 % nRBC Abs Auto 0.000 0.000 - 0.000 x10(3)/mcL Differential, Automated Result Value Ref Range Neutrophils % 51.0 % Neutr Abs (ANC) 2.63 1.70 - 6.10 x10(3)/mcL Lymphocytes % 39.0 % Lymphocytes Abs 2.0 0.9 - 3.2 x10(3)/mcL Monocytes % 7.8 % Monocyte Abs 0.4 0.3 - 0.9 x10(3)/mcL Eosinophils % 1.4 % Eosinophils Abs 0.1 0.0 - 0.4 x10(3)/mcL Basophils % 0.4 % Basophils Abs 0.0 0.0 - 0.1 x10(3)/mcL Immature Gran % 0.40 % Cheli Gran Abs 0.02 0.00 - 0.04 x10(3)/mcL Radiology/Studies: None to review Assessment/Plan: 47 y/o M with presenting for evaluation of thrombocytopenia. His work up did not reveal any causative factor. Platelets relatively stable s. I reviewed the role of platelets and our concern about bleeding, including a fatal bleed. We have been seeing and checking his platelet count approx quarterly for the last 2 years and there has not been much of a change. I will move his apptmts to 3x/yr but warned Prasanna to call with any bleeding, rashetc. I also metnioned the need for a Medical bracelet again. Finally, I warned that his plates coulddrop in the setting of a virus and he should have his CBC checked if he experiences a viral infection. He voiced a clear udnerstanding of allof the above. #. Thrombocytopenia -Platelet count stable -No complaints of bleeding / bruising / petechiae. -No indication for therapy at this time. -Routine health maintenance with Dr. Sancho Mims will call in the interim with any clinical concerns including bleeding, bruising, petechiae. MAIKEL BROOKE MD Hematology and Oncology ------- documented in this encounter Plan of Treatment Upcoming Encounters Date Type Specialty Care Team Description 09/06/2022 Appointment Hematology and Oncology 09/06/2022 Office Visit Hematology and Oncology Maikel Brooke MD [facility] DR HEMATOLOGY/[place] [address] Norma Garrido APRN [facility] DR [place]EMATOLOGY[place] [address] Marleen Reis MD [facility] DR HEMATOLOGY/[place] [address] documented as of this encounter Results (ABNORMAL) Comprehensive metabolic panel (non-fasting) (02/20/2018 3:02 PM EDT) athologist Signature Glucose Lvl 141 65 - 199 [facility] mg/dL [facility] Comment: Diabetes: >=200 mg/dL plus symp toms BUN 21 (H) 10 - 20 mg/dL [facility] Creatinine 1.21 0.80 - 1.50 mg/dL [facility] Sodium 138 135 - 145 mmol/L [facility] Potassium 3.8 3.5 - 5.0 mmol/L [facility] Comment: Please note: ??Patients with WBC >100,00 0 may have falsely elevated Potassium levels. ??For accurate Potassium quantif ication in these patients send serum separator tube (gold top) for subsequent determinations. ??Contact the Clinical Chemistry Laboratory if there are any qu estions. Chloride 99 98 - 107 mmol/L [facility] CO2 25 22 - 31 mmol/L [facility] Anion Gap 14 5 - 15 mmol/L [facility] Calcium 9.4 8.5 - 10.5 mg/dL [facility] Total Protein 7.4 6.1 - 8.0 gm/dL [facility] Albumin 4.7 3.2 - 5.2 gm/dL [facility] AST 22 0 - 39 unit/L [facility] ALT 46 0 - 55 unit/L [facility] Alk Phos 84 40 - 120 unit/L [facility] Total Bilirubin 0.5 0.2 - 1.3 mg/dL [facility] Estimated GFR >60 >=60 [facility] Comment: The reported eGFR should be multiplied b y 1.2 for patients. The MDRD is not an appropriate measure o f renal function for patients with body mass extremes or in patients with acute kidney failure. http://OpenCurriculum/DHnkdep http://OpenCurriculum/DHMCnkf Specimen Anatomical Collection Method Collection Time Receive d Time (Source) Location / / Volume Laterality Blood specimen 02/20/2018 3:02 PM 018 3:06 (specimen) EDT PM EDT Resulting Agency Comment Spec In Lab Maikel Brooke MD CHEMISTRY ORDERABLES Performing Organization Address City/State/Z[place] [address] documented in this encounter Visit Diagnoses Diagnosis Thrombocytopenia Thrombocytopenia, unspecified documented in this encounter Care Teams Skiver Counter Relationship Specialty Start Date End Date Kurtis Kingsley DO PCP - General 09/27/10 03/22/[address] [place] [address] documented as of this encounter
--- OUTSIDE RECORDS SUMMARY | 2022-08-02 13:00 | XMS_ITS | Encounter Summary ---
:1970 Author Organization [facility] [place] [address] Care Team Providers Name Role Phone Sancho Kurtis PIERRE Primary Care Provider Encounter Details Date Type Department Care Team Description 11/17/2015 Hospital Encounter Hematology [place] [address] Social History Tobacco Use Types Packs/Day [...] mg states he is taking .5 mg gabapentin (NEURONTIN) 300 Take 300 mg by [...] [facility] DR HEMATOLOGY/[place] [address] Norma Garrido APRN [facility] DR HEMATOLOGY-[place] [address] Marleen Reis MD [facility] DR HEMATOLOGY/[place] [address] documented as of this encounter Procedures Procedure Name Priority Date/Time Associated Diagnosis Comme nts HEMOGRAM Routine 11/17/2015 9:45 AM Thrombocytopenia Resul ts for this EST procedure are i n the results section. DIFFERENTIAL, Routine 11/17/2015 9:45 AM Thrombocytopenia Resu lts for this AUTOMATED EST procedure are i n the results section. CBC (WITH DIFF) Routine 11/17/2015 9:45 AM Thrombocytopenia EST documented in this encounter Results Differential, Automated (11/17/2015 9:45 AM EST) athologist Signature Neutrophils % 49.3 % CERNER MILLENNIUM Neutr Abs (ANC) 2.61 1.50 - CERNER 6.30 MILLENNIUM x10(3)/mcL Lymphocytes % 41.0 % CERNER MILLENNIUM Lymphocytes Abs 2.2 1.0 - 3.6 CERNER x10(3)/mcL MILLENNIUM Monocytes % 6.8 % CERNER MILLENNIUM Monocyte Abs 0.4 0.2 - 1.0 CERNER x10(3)/mcL MILLENNIUM Eosinophils % 2.1 % CERNER MILLENNIUM Eosinophils Abs 0.1 0.0 - 0.5 CERNER x10(3)/mcL MILLENNIUM Basophils % 0.4 % CERNER MILLENNIUM Basophils Abs 0.0 0.0 - 0.2 CERNER x10(3)/mcL MILLENNIUM Immature Gran % 0.40 % CERNER MILLENNIUM Comment: Immature granulocytes(IG's)percentage an d absolute count will include metamyelocytes, myelocytes, and promyelo cytes. Blood smears from CBCs yielding IG's will be scanned manually for concor dance. If this scan disagrees with the automated IG or if promyelocytes are not ed, a manual differential will be performed. Cheli Gran Abs 0.02 0.00 - 0.05 x10(3)/mcL CER NER MILLENNIUM Specimen Anatomical Collection Method Collection Time Receive d Time (Source) Location / / Volume Laterality Blood specimen 11/17/2015 9:45 AM 016 9:53 (specimen) EST AM EST Resulting Agency Comment Spec In Lab Maikel Rebolledo MD HEMATOLOGY ORDERABLES Performing Organization Address City/[facility]/ZIP [place] [address] CERNER MILLENNIUM (ABNORMAL) Hemogram (11/17/2015 9:45 AM EST) P athologist Signature WBC 5.3 4.0 - 10.0 CERNER x10(3)/mcL MILLENNIUM RBC 5.49 4.63 - 6.08 CERNER x10(6)/mcL MILLENNIUM Hemoglobin 16.3 13.7 - 17.5 CERNER gm/dL MILLENNIUM Hematocrit 46.7 40.0 - 51.0 CERNER % MILLENNIUM MCV 85.1 79.0 - 92.0 CERNER fL MILLENNIUM MCH 29.7 25.6 - 32.2 CERNER pg MILLENNIUM MCHC 34.9 32.0 - 36.5 CERNER gm/dL MILLENNIUM Platelets 78 (L) 145 - 370 CERNER x10(3)/mcL MILLENNIUM RDWSD 38.5 35.0 - 46.0 CERNER fL MILLENNIUM RDWCV 12.6 10.9 - 14.4 CERNER % MILLENNIUM MPV 11.4 9.0 - 12.0 CERNER fL MILLENNIUM Specimen Anatomical Collection Method Collection Time Receive d Time (Source) Location / / Volume Laterality Blood specimen 11/17/2015 9:45 AM 016 9:53 (specimen) EST AM EST Resulting Agency Comment Spec In Lab Maikel Rebolledo MD HEMATOLOGY ORDERABLES Performing Organization Address City/[facility]/ZIP [place] [address] CERNER MILLENNIUM documented in this encounter Visit Diagnoses Diagnosis Thrombocytopenia Thrombocytopenia, unspecified documented in this encounter Care Teams Leadership Program Associate Relationship Specialty Start Date End Date Kurtis Kingsley DO PCP - General 09/27/10 03/22/22 [address] [place] [address] documented as of this encounter
--- OUTSIDE RECORDS SUMMARY | 2022-08-02 13:00 | XMS_ITS | Encounter Summary ---
:1970 [place] [address] Care Team Providers Name Role Phone Kurtis Kingsley Primary Care Provider Encounter Details Date Type Department Care Team Description 01/01/2018 Hospital Encounter Radiology Library at Brunilda Rebolledo, [facility] [place] [phone] HEMATOLOGY/ONCOLOGY [phone] DEPT. [place], [place] [address] (Wo rk) Social History Tobacco [...] Maikel Rebolledo MD [facility] HEMATOLOGY/[place] [address] Norma Garrido APRN [facility] DR HEMATOLOGY[place] [address] Marleen Reis MD [facility] DR HEMATOLOGY/[place] [address] documented as of this encounter Procedures Procedure Name Priority Date/Time Associated Diagnosis Comme nts FILM LIBRARY Routine 01/01/2018 12:00 AM Results for this STORAGE ONLY CT EST procedure ar e in ABDOMEN AND PELVIS the resul ts section. documented in this encounter Results Film Library- Storage Only CT Abdomen & Pelvis (01/01/2018 12:00 AM EST) Specimen (Source) Anatomical Location Collection Method / Collectio n Time Received Time / Laterality Volume Narrative [facility] - 01/04/2018 4:59 PM EST This result has an attachment that is no t available. This exam is for storage only and is aut o-finalizing. Maikel Rebolledo MD IMG FILM LIBRARY ORDERABLES Performing Organization Address City/State/ZIP Code Phon e Number [place], [place] documented in this encounter Visit Diagnoses Not on filedocumented in this encounter Care Teams Conical Mixer Relationship Specialty Start Date End Date Kurtis Kingsley DO PCP - General 09/27/10 03/22/[address] [place] [address] documented as of this encounter
--- OUTSIDE RECORDS SUMMARY | 2022-08-02 13:00 | XMS_ITS | Encounter Summary ---
:1970 Author Organization [place] [address] Care Team Providers Name Role Phone Kurtis Kingsley DO Primary Care Provider Reason for Visit Reason Onset Date Comments Medical Care Coordination 12/16/2015 [facility] Encounter Details Date Type Department Care Team Description 12/16/2015 Telephone Hematology and Belinda Pritchett, Medical Care Oncology at [facility] RN Coordination (labs at [facility] PCP offic [place]) [place] [address] Social History Tobacco Use Types Packs/Day Years Used Date Never Smoker Smokeless Tobacco: Never Used Alcohol Use Standard Drinks/Week Comments Yes 0 (1 standard drink = 0.6 oz pure alcoho l) Sex Assigned at Date Recorded Not on file documented as of this encounter Miscellaneous Notes Telephone Encounter - Belinda Pritchett RN - 12/16/2015 2:19 PM EST RN received request from Dr Bain to set patient up for monthly CBC's at PCP office. RN generated standing order. Left message for RENNY Cantrell at Dr Kingsley's office at [phone] stating patient needs to be set up for monthly labs drawn starting in January. Orders faxed to Dr Kingsley's office at [phone]. Clinic contact information provided, should there be further questions or concerns. Reminder placed for Nursing to track labs. RN will continue to follow. 12-17-15: RN received message from clinical medical secretary receptionist stating RENNY Cantrell from [facility] to confirm that patient's PCP is Dr Kingsley, and they will set him up for monthly labs. Orders faxed to [phone] per Tamia's request. She can be reached at [phone] ext [phone] for further questions if necessary. documented in this encounter Plan of Treatment Upcoming Encounters Date Type Specialty Care Team Description 09/06/2022 Appointment Hematology and Oncology 09/06/2022 Office Visit Hematology and Oncology Maikel Rebolledo MD [facility] DR HEMATOLOGY/[place] [address] Norma Garrido APRN [facility] DR HEMATOLOGY[place] [address] Marleen Reis MD [facility] DR HEMATOLOGY/[place] [address] documented as of this encounter Visit Diagnoses Diagnosis ITP (idiopathic thrombocytopenic purpura ) Immune thrombocytopenic purpura documented in this encounter Care Teams Harness Placer Relationship Specialty Start Date End Date Kurtis Kingsley DO PCP - General 09/27/10 03/22/[address] [place] [address] documented as of this encounter
--- OUTSIDE RECORDS SUMMARY | 2022-08-02 13:00 | XMS_ITS | Encounter Summary ---
:1970 Author Organization [facility] [place] [address] Care Team Providers Name Role Phone SanchoKurtis mcdaniel Primary Care Provider Encounter Details Date Type Department Care Team Description 11/01/2016 Hospital Encounter Hematology and Idiopat hic Oncology at [facility] [place] [phone] Social History Tobacco Use Types Packs/Day Years [...] Visit Hematology and Oncology Maikel Rebolledo MD [facility] HEMATOLOGY/[place] [address] Norma Garrido APRN [facility] [place]ATOLOGY[place] [address] Marleen Reis MD [facility] DR HEMATOLOGY/[place] [address] Scheduled Orders Name Type Priority Associated Diagnoses Order S chedule CBC (with Diff) Lab STAT Idiopathic thrombocytopen ic 1 Occurrences starting purpura 11/01/2016 unti l 11/01/2016 documented as of this encounter Procedures Procedure Name Priority Date/Time Associated Diagnosis Comme nts HEMOGRAM Routine 11/01/2016 3:12 PM Results f or this EST procedure are i n the results section. DIFFERENTIAL, Routine 11/01/2016 3:12 PM Results for this AUTOMATED EST procedure are i n the results section. documented in this encounter Results Differential, Automated (11/01/2016 3:12 PM EST) P athologist Signature Neutrophils % 52.7 % [facility] Neutr Abs (ANC) 3.07 1.70 - [facility] 6.10 [facility] x10(3)/[facility] LABORATORY Lymphocytes % 36.9 % [facility] Lymphocytes Abs 2.2 0.9 - 3.2 [facility] x10(3)/[facility] LABORATORY Monocytes % 7.7 % [facility] Monocyte Abs 0.4 0.3 - 0.9 [facility] x10(3)/[facility] LABORATORY Eosinophils % 1.7 % [facility] Eosinophils Abs 0.1 0.0 - 0.4 [facility] x10(3)/[facility] LABORATORY Basophils % 0.5 % [facility] Basophils Abs 0.0 0.0 - 0.1 [facility] x10(3)/[facility] LABORATORY Immature Gran % 0.50 % [facility] Comment: Immature granulocytes(IG's)percentage an d absolute count will include metamyelocytes, myelocytes, and promyelo cytes. Blood smears from CBCs yielding IG's will be scanned manually for concor dance. If this scan disagrees with the automated IG or if promyelocytes are not ed, a manual differential will be performed. Cheli Gran Abs 0.03 0.00 - 0.04 x10(3)/[facility] Y [facility] LABORATORY Specimen Anatomical Collection Method Collection Time Receive d Time (Source) Location / / Volume Laterality Blood specimen Venous Draw / 11/01/2016 3:12 PM 2015 3:26 (specimen) Unknown EST PM EST Resulting Agency Comment Spec In Lab Maikel Rebolledo MD HEMATOLOGY ORDERABLES Performing Organization Address City/State/[place] [address] (ABNORMAL) Hemogram (11/01/2016 3:12 PM EST) P athologist Signature WBC 5.8 4.0 - 9.5 [facility] x10(3)/[facility] LABORATORY RBC 5.51 4.58 - [facility] 5.54 [facility] x10(6)/[facility] LABORATORY Hemoglobin 16.1 13.7 - [facility] 16.5 gm/dL [facility] Hematocrit 45.9 40.5 - [facility] 48.5 % [facility] MCV 83.3 82.9 - [facility] 93.1 [facility] LABORATORY MCH 29.2 27.5 - [facility] 32.1 pg [facility] MCHC 35.1 32.0 - [facility] 35.7 gm/dL [facility] Platelets 92 (L) 145 - 357 [facility] x10(3)/[facility] LABORATORY RDWSD 37.2 36.0 - [facility] 45.0 [facility] LABORATORY RDWCV 12.3 11.4 - [facility] 13.8 % [facility] LABORATORY MPV 11.7 7.6 - 12.9 [facility] LABORATORY nRBC % Auto 0.0 % [facility] nRBC Abs Auto 0.000 0.000 - [facility] 0.000 [facility] x10(3)/[facility] LABORATORY Specimen Anatomical Collection Method Collection Time Receive d Time (Source) Location / / Volume Laterality Blood specimen Venous Draw / 11/01/2016 3:12 PM 2015 3:26 (specimen) Unknown EST PM EST Resulting Agency Comment Spec In Lab Maikel Rebolledo MD HEMATOLOGY ORDERABLES Performing Organization Address City/State/[place] [address] documented in this encounter Visit Diagnoses Diagnosis Idiopathic thrombocytopenic purpura Immune thrombocytopenic purpura documented in this encounter Care Teams Seed Cleaning Machine Operator Relationship Specialty Start Date End Date Kurtis Kingsley DO PCP - General 09/27/10 03/22/[address] [place] [address] documented as of this encounter
--- OUTSIDE RECORDS SUMMARY | 2022-08-02 13:00 | XMS_ITS | Encounter Summary ---
:1970 Author Organization [facility] [place] [address] Care Team Providers Name Role Phone SanchoKurtis mcdaniel Primary Care Provider Encounter Details Date Type Department Care Team Description 03/07/2017 Hospital Encounter Hematology and Idiopat hic Oncology at [facility] [place] [phone] Social History Tobacco Use Types Packs/Day Years [...] Visit Hematology and Oncology Maikel Rebolledo MD [facility] HEMATOLOGY/[place] [address] Norma Garrido APRN [facility] DR HEMATOLOGY-[place] [address] Marleen Reis MD [facility] DR HEMATOLOGY/[place] [address] documented as of this encounter Procedures Procedure Name Priority Date/Time Associated Diagnosis Comme nts HEMOGRAM Routine 03/07/2017 2:59 Idiopathic Results for this PM EDT thrombocytopenic purpura pro cedure are in the results section. DIFFERENTIAL, Routine 03/07/2017 2:59 Idiopathic Results for this AUTOMATED PM EDT thrombocytopenic purpura pro cedure are in the results section. CBC (WITH DIFF) Routine 03/07/2017 2:59 Idiopathic PM EDT thrombocytopenic purpura documented in this encounter Results Differential, Automated (03/07/2017 2:59 PM EDT) P athologist Signature Neutrophils % 51.0 % [facility] LABORATORY Neutr Abs (ANC) 2.87 1.70 - [facility] 6.10 [facility] x10(3)/[facility] LABORATORY Lymphocytes % 39.8 % [facility] LABORATORY Lymphocytes Abs 2.2 0.9 - 3.2 [facility] x10(3)/[facility] LABORATORY Monocytes % 5.9 % [facility] LABORATORY Monocyte Abs 0.3 0.3 - 0.9 [facility] x10(3)/[facility] LABORATORY Eosinophils % 2.1 % [facility] LABORATORY Eosinophils Abs 0.1 0.0 - 0.4 [facility] x10(3)/[facility] LABORATORY Basophils % 0.7 % [facility] LABORATORY Basophils Abs 0.0 0.0 - 0.1 [facility] x10(3)/[facility] LABORATORY Immature Gran % 0.50 % [facility]ATORY Comment: Immature granulocytes(IG's)percentage an d absolute count will include metamyelocytes, myelocytes, and promyelo cytes. Blood smears from CBCs yielding IG's will be scanned manually for concor dansimon. If this scan disagrees with the automated IG or if promyelocytes are not ed, a manual differential will be performed. Cheli Gran Abs 0.03 0.00 - 0.04 x10(3)/[facility] MAR Y [facility] LABORATORY Specimen Anatomical Collection Method Collection Time Receive d Time (Source) Location / / Volume Laterality Blood specimen 03/07/2017 2:59 PM 017 3:27 (specimen) EDT PM EDT Resulting Agency Comment Spec In Lab Maikel Rebolledo MD HEMATOLOGY ORDERABLES Performing Organization Address City/State/[place] [address] (ABNORMAL) Hemogram (03/07/2017 2:59 PM EDT) Analysis Performed At Patho logist Time Signature WBC 5.6 4.0 - 9.5 [facility] x10(3)/[facility] LABORATORY RBC 5.62 (H) 4.58 - [facility] 5.54 [facility] x10(6)/[facility] LABORATORY Hemoglobin 16.5 13.7 - [facility] gm/dL [facility] LABORATORY Hematocrit 46.8 40.5 - [facility] 48.5 % [facility] LABORATORY MCV 83.3 82.9 - [facility] 93.1 [facility] LABORATORY MCH 29.4 27.5 - [facility] 32.1 pg [facility] LABORATORY MCHC 35.3 32.0 - [facility] 35.7 gm/dL [facility] LABORATORY Platelets 86 (L) 145 - 357 [facility] x10(3)/[facility] LABORATORY RDWSD 38.8 36.0 - [facility] 45.0 [facility] LABORATORY RDWCV 12.8 11.4 - [facility] 13.8 % [facility] LABORATORY MPV 11.2 7.6 - 12.9 [facility] LABORATORY nRBC % Auto 0.0 % [facility] LABORATORY nRBC Abs Auto 0.000 0.000 - [facility] 0.000 [facility] x10(3)/[facility] LABORATORY Specimen Anatomical Collection Method Collection Time Receive d Time (Source) Location / / Volume Laterality Blood specimen 03/07/2017 2:59 PM 017 3:27 (specimen) EDT PM EDT Resulting Agency Comment Spec In Lab Maikel Rebolledo MD HEMATOLOGY ORDERABLES Performing Organization Address City/State/[place] [address] documented in this encounter Visit Diagnoses Diagnosis 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
--- OUTSIDE RECORDS SUMMARY | 2022-08-02 13:00 | XMS_ITS | Encounter Summary ---
:1970 Author Organization [facility] [place] [address] Care Team Providers Name Role Phone SanchoKurtis mcdaniel Primary Care Provider Reason for Visit Reason Onset Date Comments Medical Care Coordination 12/01/2015 Arrange CBC at [facility] on 12-03-15 Encounter Details Date Type Department Care Team Description 12/01/2015 Telephone Hematology and Oncology Sherly Bateman, Medical Care at [facility] RN Coordination (Arrange [facility] CBC at [facility] on 12-03-15) [place] [address] Social History Tobacco Use Types Packs/Day Years Used Date Never Smoker Smokeless Tobacco: Never Used Alcohol Use Standard Drinks/Week Comments Yes 0 (1 standard drink = 0.6 oz pure alcoho l) Sex Assigned at Date Recorded Not on file documented as of this encounter Miscellaneous Notes Telephone Encounter - Sherly Bateman, RN - 12/01/2015 11:55 AM EST RN received eD message from Dr Eisenberg with order for CBC w/diff on 12-03-15 to be drawn at [facility], dx: ITP. She also asked this RN to obtain results of H. pylori that were done at [facility] [place] 2 weeks ago. RN generated above order for CBC and faxed to [facility] lab [phone]. Sent request to obtain H. pyori results to clinical programming specialist. RN will track labs. documented in this encounter Plan of Treatment Upcoming Encounters Date Type Specialty Care Team Description 09/06/2022 Appointment Hematology and Oncology 09/06/2022 Office Visit Hematology and Oncology Maikel Rebolledo MD [facility] DR HEMATOLOGY/[place] [address] [facility] [address] HEMATOLOGY-[place] [address] [facility] DR HEMATOLOGY/[place] [address] documented as of this encounter Results (ABNORMAL) CBC (with Diff) (12/02/2015 3:24 PM EST) [facility] gist Method Time Signature WBC 5.14 [...] purpura documented in this encounter Care Teams Cash Reconciliation Specialist Relationship Specialty Start Date End Date Kurtis Kingsley DO PCP - General 09/27/10 03/22/[address] [place] [address] documented as of this encounter
--- OUTSIDE RECORDS SUMMARY | 2022-08-02 13:00 | XMS_ITS | Encounter Summary ---
:1970 Author Organization [facility] [place] [address] Care Team Providers Name Role Phone Kurtis Kingsley DO Primary Care Provider Encounter Details Date Type Department Care Team Description 11/17/2015 Office Visit Hematology and Oncology Maikel Rebolledo MD [facility] DR HEMATOLOGY/[place] [address] [place] [facility] Norma Garrido APRN [facility] [place] [address] [facility] Partha Goldberg MD [facility] DR HEMATOLOGY/[place] [address] [place] [address] Social History Tobacco Use Types Packs/Day Years Used Date Never Smoker Smokeless Tobacco: Never Used Alcohol Use Standard Drinks/Week Comments Yes 0 (1 standard drink = 0.6 oz pure alcoho l) Sex Assigned at Date Recorded Not on file documented as of this encounter Last Filed Vital Signs Vital Sign Reading Time Taken Comments Blood Pressure 132/75 11/17/2015 11:32 AM EST Pulse 98 11/17/2015 11:32 AM EST Temperature 36.7 ??C (98.1 ??F) 11/17/2015 11:32 AM EST Respiratory Rate 16 11/17/2015 11:32 AM EST Oxygen Saturation 99% 11/17/2015 11:32 AM EST Inhaled Oxygen Concentration - - Weight 94 kg (207 lb 3.7 oz) 11/17/2015 11:32 AM EST Height 177 cm (5' 9.69) 11/17/2015 11:32 AM EST Body Mass Index 30 11/17/2015 11:32 AM EST documented in this encounter Progress Notes MarthacarleensincereUyenlinda - 11/17/2015 11:53 AM EST Images from the original note [...] uncomplicated with no excessive bleeding. INTERIM HISTORY: returns for f/up. He reports feeling well. - No easy bleeding or bruising; no fevers of night sweats or weight loss; - No change in the energy level compared to last visit - On ROS, he reports an episode of headaches which lasted for few days before resolving spontaneously. He adds that while he was having this headache, he had an episode of blurring of vision while he was watching TV at night. Vision came back to normal with in 15 minutes; no other similar episodes. Hedidn't seek any medical attention for this event. Denies any focal weakness or paresthesias or facial weakness or any other focal neuro deficits at that time. He does not have h/o migraines; Rest of the ROS is negative. Review [...] states he is taking .5 mg ??? gabapentin (NEURONTIN) 300 mg capsule Take 300 mg by mouth daily. ??? pramipexole (MIRAPEX) 0.25 mg tablet Take 0.5 mg by mouth daily. ??? FEXOFENADINE HCL (DAVID ORAL) ??? cycloSPORINE (RESTASIS) 0.05 % ophthalmic emulsion No current facility-administered medications on file prior to visit. 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 - Smoking: never - Alcohol: rarely - He lives in [place], [place] with his and 3 kids. Family History: - Mother: was tested negative for PLT antigen 1; never had low plt count; - Father: htn, dlp -Siblings: brother and sister: both healthy; His sister also had low plt count at and was transfused; no issues now. Brother is a accounts clerk at [employer]. 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 Vital Signs: BP 132/75 mmHg Pulse 98 Temp(Src) 36.7 ??C (98.1 ??F) Resp 16 Ht 177 cm (5' 9.69) Wt 94 kg (207 lb 3.7 oz) BMI 30.00 kg/m2 SpO2 99% Physical Exam: GA: pleasant; [...] hour(s)) Hemogram Result Value Ref Range WBC 5.3 4.0 - 10.0 x10(3)/mcL RBC 5.49 4.63 - 6.08 x10(6)/mcL Hemoglobin 16.3 13.7 - 17.5 gm/dL Hematocrit 46.7 40.0 - 51.0 % MCV 85.1 79.0 - 92.0 fL MCH 29.7 25.6 - 32.2 pg MCHC 34.9 32.0 - 36.5 gm/dL Platelets 78 (L) 145 - 370 x10(3)/mcL RDWSD 38.5 35.0 - 46.0 fL RDWCV 12.6 10.9 - 14.4 % MPV 11.4 9.0 - 12.0 fL Differential, Automated Result Value Ref Range Neutrophils % 49.3 % Neutr Abs (ANC) 2.61 1.50 - 6.30 x10(3)/mcL Lymphocytes % 41.0 % Lymphocytes Abs 2.2 1.0 - 3.6 x10(3)/mcL Monocytes % 6.8 % Monocyte Abs 0.4 0.2 - 1.0 x10(3)/mcL Eosinophils % 2.1 % Eosinophils Abs 0.1 0.0 - 0.5 x10(3)/mcL Basophils % 0.4 % Basophils Abs 0.0 0.0 - 0.2 x10(3)/mcL Immature Gran % 0.40 % Cheli Gran Abs 0.02 0.00 - 0.05 x10(3)/mcL Results for PRASANNA SHIPMAN ( ) as of 11/17/2015 21:40 Ref. Range 11/03/2015 16:35 Sodium Latest Range: 135-145 mmol/L 140 Potassium Latest Range: 3.5-5.0 mmol/L 3.7 Chloride Latest Range: 98-107 mmol/L 102 CO2 Latest Range: 22-31 mmol/L 22 Anion Gap Latest Range: 5-15 mmol/L 16 (H) BUN Latest Range: 10-20 mg/dL 19 Creatinine Latest Range: 0.80-1.50 mg/dL 1.26 Estimated GFR Latest Range: >=60 >60 Glucose Lvl Latest Range: 65-199 mg/dL 101 Calcium Latest Range: 8.5-10.5 mg/dL 9.1 Total Protein Latest Range: 6.1-8.0 gm/dL 7.3 Albumin Latest Range: 3.2-5.2 gm/dL 4.6 Total Bilirubin Latest Range: 0.2-1.3 mg/dL 0.4 Bili, Direct Latest Range: 0.0-0.3 mg/dL 0.1 Alk Phos Latest Range: 40-120 unit/L 68 AST Latest Range: 0-39 unit/L 24 ALT Latest Range: 0-55 unit/L 40 Folate Lvl Latest Range: 4.6-34.8 ng/mL 10.0 Vitamin B-12 Latest Range: 207-974 pg/mL 506 Results for PRASANNA SHIPMAN ( ) as of 11/17/2015 21:40 Ref. Range 11/03/2015 16:35 MO Latest Range: Neg Neg RF Latest Range: <=14 IU/mL <10 Radiology/Studies: None to review Pathology: Peripheral smear: DIAGNOSIS Thrombocytopenia. see discussion DISCUSSION There is no anemia. The red blood cells show generally normal morphology. The white blood cells show some reactive lymphocytes, but otherwise show normal morphology. Platelets are decreased and show normal platelet morphology. Thrombocytopenia can be secondary to medications, inflammatory/infectious conditions, nutritional deficiencies, ITP. There is no diagnostic morphologic pathology in this smear to explain thrombocytopenia. Assessment/Plan: 45 y/o M with presenting for evaluation of thrombocytopenia. Reviewed all the labs with him which rules out nutritional deficiencies, inflammatory conditons, viral infections as possible etiology for thrombocytopenia. No new meds including OTC. No morphologic abnormality on peripheral smear review. 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 Reviewed my impression, underlying pathogenesis, natural history, prognosis, bleeding complications,threshold ptl count for various scenarios, treatment indications and treatment options for ITP with . His plt count is over 30K. So, he does not need any treatment at this point. We generally do not treat ITP unless the plt count drops below 30K or in special scenarios prior to surgery. Spontaneous bleeding complications are highest with plt count below 20K. We don't know the chronicity and tempo of his ITP as his last CBC was few years ago. So, we will seehim back in a month with CBC. If his plt count is stable at next visit, then, his PCP can monitor his counts periodically, alerting us if there is any change. H.pylori infection has been shown to be associated with ITP. He gave his stool sample to [facility]. Will get the results from them. If H.pylori stool antigen is positive, then, I will call him with recommendations for H.pylor treatment. asked me about medical alert bracelet. I discussed with , who agrees that this is a good idea.I sent an email to patient recommending hm the bracelet. # Headache, an episode of blurring of vision: Both resolved spontaneously. He has an appointment with his director of neurology tomorrow. He is advised to seek medical attention immediately if he has similarepisodes again. PLAN to summarize: - RTC in 4 weeks with CBC for f/up for ITP - Will get labs from [facility]. - If he has H.pylori, he needs Abx - Medical alert bracelet for ITP. We reviewed our impression and plans with and all his Qs were answered. I advised him to call us or go to ED if he notices any petechiae, easy bruising, bleeding etc. Pt agreed with the plan. Case was discussed with . Partha Eisenberg MD. Fellow, Hematology/Oncology Pager: [phone] documented in this encounter Plan of Treatment Upcoming Encounters Date Type Specialty Care Team Description 09/06/2022 Appointment Hematology and Oncology 09/06/2022 Office Visit Hematology and Oncology Maikel Rebolledo MD [facility] HEMATOLOGY/[place] [address] Norma Garrido APRN [facility] [place] [address] Marleen Reis MD [facility] [place]ATOLOG[place] [address] documented as of this encounter Visit Diagnoses Diagnosis Thrombocytopenia Thrombocytopenia, unspecified documented in this encounter Care Teams Proc Tech Relationship Specialty Start Date End Date Kurtis Kingsley DO PCP - General 09/27/10 03/22/22 [facility] [address] [place] [address] documented as of this encounter
--- OUTSIDE RECORDS SUMMARY | 2022-08-02 13:00 | XMS_ITS | Encounter Summary ---
:1970 Author Organization [facility] [place] [address] Care Team Providers Name Role Phone SanchoKurtis Primary Care Provider Reason for Visit Reason Onset Date Comments Medical Care Coordination 04/24/2016 Encounter Details Date Type Department Care Team Description 04/24/2016 Telephone Hematology and Oncology Sherly Bateman, [place] [facility] [place] [address] Social History Tobacco Use Types Packs/Day Years Used Date Never Smoker Smokeless Tobacco: Never Used Alcohol Use Standard Drinks/Week Comments Yes 0 (1 standard drink = 0.6 oz pure alcoho l) Sex Assigned at Date Recorded Not on file documented as of this encounter Miscellaneous Notes Telephone Encounter - Sherly Bateman, RN - 04/24/2016 8:03 AM EDT RN Received order for local CBC w/diff from Norma Garrido NP, to be drawn in 3 months from 04/19/16. Request sent to clinical elementary secretary. RN received the following from clinical elementary secretary: Injection/Infusion Referral-[facility] ? Call placed [phone]. ?? Spoke w/ MARK. ?? Services to be provided for pt are: WEEK OF 06/26 FOR LAB DRAW ?? confirmed they would provide services to pt and would contact with appointment time. ?? Pt demographics, office note, med list and orders faxed to [phone]. Reminder note placed in eDH to track labs. documented in this encounter Plan of Treatment Upcoming Encounters Date Type Specialty Care Team Description 09/06/2022 Appointment Hematology and Oncology 09/06/2022 Office Visit Hematology and Oncology Maikel Rebolledo MD [facility] DR HEMATOLOGY/[place] [address] Norma Garrido APRN [facility] [address] HEMATOLOGY-[place] [address] Marleen Reis MD [facility] DR HEMATOLOGY/[place] [address] documented as of this encounter Visit Diagnoses Not on filedocumented in this encounter Care Teams Baler Relationship Specialty Start Date End Date Kurtis Kingsley DO PCP - General 09/27/10 03/22/[address] [place] [address] documented as of this encounter
--- OUTSIDE RECORDS SUMMARY | 2022-08-02 13:00 | XMS_ITS | Encounter Summary ---
:1970 Author Organization [facility] [place] [address] Care Team Providers Name Role Phone SanchoKurtis mcdaniel Primary Care Provider Reason for Visit Reason Onset Date Comments Questions 12/17/2017 Encounter Details Date Type Department Care Team Description 12/17/2017 Telephone Hematology and Oncology at [place] [address] Social History Tobacco Use Types Packs/Day Years Used Date Never Smoker Smokeless Tobacco: Never Used Alcohol Use Standard Drinks/Week Comments Yes 0 (1 standard drink = 0.6 oz pure alcoho l) Sex Assigned at Date Recorded Not on file documented as of this encounter Miscellaneous Notes Telephone Encounter - Belinda Pritchett RN - 12/17/2017 1:10 PM EST Images from the original note were not included. RN received the following message from clinical elementary secretary: pt. having abdominal pain Call patient Received: Today ? Johnna Steiner Hem Onc Triage Hematology ? Prasanna called, he's been having some pain on his left side above his hip among other abdominal pains. He said Dr. Rebolledo wanted him to keep us in the loop on any changes he has. He said he brother ruthann doctor and thought he may have some blockage and need a colonoscopy. He was wondering if there wasanything he should do or anything Dr. Rebolledo recommends. [phone] RN spoke with patient and he states for the better part of 5-6 months he been having hip pain on left side. Located in the bone above his hip. Yesterday got to the point that he has to lift his leg up to get out of the car. Also c/o pressure below belly button. Pain is located towards back as well, and he states this makes him believe it may be related to his kidneys. Patient reports issues with stomach describing as likemice running around my stomach and states you can see it moving when you look at it. He is concerned he may have a tumor or blockage. He reports having regular BM's but states they are thinner and more dense. Has appt at PCP office today. RN recommended he keep appt with PCP, as this is not likely related to his thrombocytopenia diagnosis. PCP will evaluate him for possible blockage/need for colonoscopy. If PCP feels this is related to his heme, they can contact this office and speak with Dr Gagnon directly. Patient verbalizes understanding. RN will continue to follow documented in this encounter Plan of Treatment Upcoming Encounters Date Type Specialty Care Team Description 09/06/2022 Appointment Hematology and Oncology 09/06/2022 Office Visit Hematology and Oncology Maikel Rebolledo MD [facility] DR HEMATOLOGY/[place] [address] Norma Garrido APRN [facility] DR HEMATOLOGY-[place] [address] Marleen Reis MD [facility] DR HEMATOLOGY/[place] [address] documented as of this encounter Visit Diagnoses Not on filedocumented in this encounter Care Teams Hospital Insurance Clerk Relationship Specialty Start Date End Date Kurtis Kingsley DO PCP - General 09/27/10 03/22/[address] [place] [address] documented as of this encounter
--- OUTSIDE RECORDS SUMMARY | 2022-08-02 13:00 | XMS_ITS | Encounter Summary ---
:1970 Author Organization [facility] [place] [address] Care Team Providers Name Role Phone SanchoKurtis mcdaniel Primary Care Provider Encounter Details Date Type Department Care Team Description 02/20/2018 Hospital Encounter Hematology and Oncology at [facility] [place] [address] Social History Tobacco Use Types Packs/Day Years [...] and Oncology Maikel Rebolledo MD [facility] DR HEMATOLOGY/[place] [address] Norma Garrido APRN [facility] DR [place]EMATOLOGY[place] [address] Marleen Reis MD [facility] DR HEMATOLOGY/[place] [address] documented as of this encounter Procedures Procedure Name Priority Date/Time Associated Diagnosis Comme nts HEMOGRAM STAT 02/20/2018 3:02 Thrombocytopenia Results for this PM EDT procedure are i n the results section. DIFFERENTIAL, STAT 02/20/2018 3:02 Thrombocytopenia Results for this AUTOMATED PM EDT procedure are i n the results section. CBC (WITH DIFF) STAT 02/20/2018 3:02 Thrombocytopenia PM EDT COMPREHENSIVE STAT 02/20/2018 3:02 Thrombocytopenia Results for this METABOLIC PANEL PM EDT procedure ar e in (NON-FASTING) the results section. documented in this encounter Results Differential, Automated (02/20/2018 3:02 PM EDT) athologist Signature Neutrophils % 51.5 % [facility] Neutr Abs (ANC) 2.63 1.70 - [facility] 6.10 [facility] x10(3)/[employer] LABORATORY Lymphocytes % 39.8 % [facility] Lymphocytes Abs 2.0 0.9 - 3.[address] [facility] x10(3)/[facility] LABORATORY Monocytes % 5.9 % [facility] Monocyte Abs 0.3 0.3 - 0.[address] [facility] x10(3)/[facility] LABORATORY Eosinophils % 1.6 % [facility] Eosinophils Abs 0.1 0.0 - 0.[address] [facility] x10(3)/[facility] LABORATORY Basophils % 0.6 % [facility] Basophils Abs 0.0 0.0 - [address] [facility] x10(3)/[facility] LABORATORY Immature Gran % 0.60 % [facility] Comment: Immature granulocytes(IG's)percentage an d absolute count will include metamyelocytes, myelocytes, and promyelo cytes. Blood smears from CBCs yielding IG's will be scanned manually for concor dance. If this scan disagrees with the automated IG or if promyelocytes are not ed, a manual differential will be performed. Cheli Gran Abs 0.03 0.00 - 0.04 x10(3)/[facility]ORATORY Specimen Anatomical Collection Method Collection Time Receive d Time (Source) Location / / Volume Laterality Blood specimen 02/20/2018 3:02 PM 018 3:06 (specimen) EDT PM EDT Resulting Agency Comment Spec In Lab Maikel Rebolledo MD HEMATOLOGY ORDERABLES Performing Organization Address City/State/Z[place] [address] (ABNORMAL) Hemogram (02/20/2018 3:02 PM EDT) Analysis Performed At Patho logist Time Signature WBC 5.1 4.0 - 9.[address] [facility] x10(3)/[facility] LABORATORY RBC 5.73 (H) 4.58 - [facility] x10(6)/[facility] LABORATORY Hemoglobin 16.8 (H) 13.7 - [facility] 16.5 gm/dL [facility]ORY Hematocrit 47.9 40.5 - [facility] 48.5 % [facility]ATORY MCV 83.6 82.9 - [facility] 93.1 [facility] LABORATORY MCH 29.3 27.5 - [facility] 32.1 pg [facility] MCHC 35.1 32.0 - [facility] 35.7 gm/dL [facility] Platelets 75 (L) 145 - [address] [facility] x10(3)/[facility] LABORATORY RDWSD 37.3 36.0 - [facility] [employer] 45.0 [facility] LABORATORY RDWCV 12.3 11.4 - [facility] 13.8 % [facility] LABORATORY MPV 11.7 7.6 - 12.9 [facility] LABORATORY nRBC % Auto 0.0 % [facility] nRBC Abs Auto 0.000 0.000 - [facility] OVIDIO 0.000 [facility] x10(3)/[facility] LABORATORY Specimen Anatomical Collection Method Collection Time Receive d Time (Source) Location / / Volume Laterality Blood specimen 02/20/2018 3:02 PM 04/18/2 018 3:06 (specimen) EDT PM EDT Resulting Agency Comment Spec In Lab Maikel Rebolledo MD HEMATOLOGY ORDERABLES Performing Organization Address City/State/ZIP [place] [address] (ABNORMAL) Comprehensive metabolic panel (non-fasting) (02/20/2018 3:02 PM EDT) athologist Signature Glucose Lvl 141 65 - [address] [facility] mg/dL [facility] Comment: Diabetes: >=200 mg/dL plus symp toms BUN 21 (H) 10 - 20 mg/dL [facility] Creatinine 1.21 0.80 - 1.50 mg/dL [facility] Sodium 138 135 - 145 mmol/L [facility] Potassium 3.8 3.5 - 5.0 mmol/L [facility] Comment: Please note: ??Patients with WBC >100,00 0 may have falsely elevated Potassium levels. ??For accurate Potassium quantif ication in these patients send serum separator tube (gold top) for subsequent determinations. ??Contact the Clinical Chemistry Laboratory if there are any qu estions. Chloride 99 98 - 107 mmol/L [facility] CO2 25 22 - 31 mmol/L [facility] Anion Gap 14 5 - 15 mmol/L [facility] Calcium 9.4 8.5 - 10.5 mg/dL [facility] Total Protein 7.4 6.1 - 8.0 gm/dL [facility] Albumin 4.7 3.2 - 5.2 gm/dL [facility] AST 22 0 - 39 unit/L [facility] ALT 46 0 - 55 unit/L [facility] Alk Phos 84 40 - 120 unit/L [facility] Total Bilirubin 0.5 0.2 - 1.3 mg/dL [facility] Estimated GFR >60 >=60 [facility] Comment: The reported eGFR should be multiplied b y 1.2 for patients. The MDRD is not an appropriate measure o f renal function for patients with body mass extremes or in patients with acute kidney failure. http://Zoomy/DHnkdep http://Zoomy/DHMCnkf Specimen Anatomical Collection Method Collection Time Receive d Time (Source) Location / / Volume Laterality Blood specimen 02/20/2018 3:02 PM 018 3:06 (specimen) EDT PM EDT Resulting Agency Comment Spec In Lab Maikel Rebolledo MD CHEMISTRY ORDERABLES Performing Organization Address City/State/[place] [address] documented in this encounter Visit Diagnoses Diagnosis Thrombocytopenia Thrombocytopenia, unspecified documented in this encounter Care Teams Bilingual Nanny Relationship Specialty Start Date End Date Kurtis Kingsley DO PCP - General 09/27/10 03/22/[address] [place] [address] documented as of this encounter
--- OUTSIDE RECORDS SUMMARY | 2022-08-02 13:00 | XMS_ITS | Encounter Summary ---
:1970 Author Organization [facility] [place] [address] Care Team Providers Name Role Phone Kurtis Kingsley Primary Care Provider Encounter Details Date Type Department Care Team Description 07/11/2017 Office Visit Hematology and Oncology Maikel Rebolledo MD [facility] [address] HEMATOLOGY/[place] [address] Th[place]openia [place] [facility] Norma Alejandra APRN [facility] [address] HEMATOLOGY-[place] [address] [facility] [place] [address] Social History Tobacco Use Types Packs/Day Years Used Date Never Smoker Smokeless Tobacco: Never Used Alcohol Use Standard Drinks/Week Comments Yes 0 (1 standard drink = 0.6 oz pure alcoho l) Sex Assigned at Date Recorded Not on file documented as of this encounter Last Filed Vital Signs Vital Sign Reading Time Taken Comments Blood Pressure 138/78 07/11/2017 2:17 PM EDT Pulse 81 07/11/2017 2:17 PM EDT Temperature 36.2 ??C (97.2 ??F) 07/11/2017 2:17 PM EDT Respiratory Rate 17 07/11/2017 2:17 PM EDT Oxygen Saturation 99% 07/11/2017 2:17 PM EDT Inhaled Oxygen Concentration - - Weight 94.1 kg (207 lb 6.4 oz) 07/11/2017 2:17 PM EDT Height 179 cm (5' 10.47) 07/11/2017 2:17 PM EDT Body Mass Index 29.36 07/11/2017 2:17 PM EDT documented in this encounter Progress Notes [place], SWATH[place] - 07/11/2017 2:30 PM EDT Images from the original note [...] today for follow-up of his ITP. He reports having a GI virus over the weekend after going to the [facility]. He had severe nausea, vomiting and diarrhea. No one else in the family was sick. He is feeling much better today - back to baseline. Prasanna denies bleeding, bruising or petechiae. He occasionally has some BRBPR. None recently. He's not sure if he has hemorrhoids.Does not routinely see Dr. Kingsley as he does not like injections and he' worried he might need a shot or blood drawn. No other medical issues. Remainder of ROS neg. Review of systems: Constitutional: as above Eyes: negative Respiratory: Negative. Cardiovascular: Negative. Gastrointestinal: GERD ---> chronic. Rare BRBPR Genitourinary: Negative. Skin: Negative. Neurological: as above [...] to visit. 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 - Smoking: never - Alcohol: rarely - He lives in [place], [place] with his and 3 kids. Family History: - Mother: was tested negative for PLT antigen 1; never had low plt count; - Father: htn, dlp - Siblings: brother and sister: both healthy; His sister also had low plt count at and was transfused; no issues now. Brother is a recording engineer at [employer]. 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 Physical Exam: BP 138/78 (Patient Position: Sitting) Pulse 81 Temp 36.2 ??C (97.2 ??F) (Temporal) Resp 17 Ht 179 cm (5' 10.47) Wt 94.1 kg (207 lb 6.4 oz) SpO2 99% BMI 29.36 kg/m2 Labs: Recent Results (from the past 24 hour(s)) Hemogram Result Value Ref Range WBC 4.3 4.0 - 9.5 x10(3)/mcL RBC 5.41 4.58 - 5.54 x10(6)/mcL Hemoglobin 16.1 13.7 - 16.5 gm/dL Hematocrit 44.2 40.5 - 48.5 % MCV 81.7 (L) 82.9 - 93.1 fL MCH 29.8 27.5 - 32.1 pg MCHC 36.4 (H) 32.0 - 35.7 gm/dL Platelets 56 (L) 145 - 357 x10(3)/mcL RDWSD 37.2 36.0 - 45.0 fL RDWCV 12.6 11.4 - 13.8 % MPV 11.6 7.6 - 12.9 fL nRBC % Auto 0.0 % nRBC Abs Auto 0.000 0.000 - 0.000 x10(3)/mcL Differential, Automated Result Value Ref Range Neutrophils % 42.1 % Neutr Abs (ANC) 1.82 1.70 - 6.10 x10(3)/mcL Lymphocytes % 44.8 % Lymphocytes Abs 1.9 0.9 - 3.2 x10(3)/mcL Monocytes % 9.9 % Monocyte Abs 0.4 0.3 - 0.9 x10(3)/mcL Eosinophils % 2.5 % Eosinophils Abs 0.1 0.0 - 0.4 x10(3)/mcL Basophils % 0.5 % Basophils Abs 0.0 0.0 - 0.1 x10(3)/mcL Immature Gran % 0.20 % Cheli Gran Abs 0.01 0.00 - 0.04 x10(3)/mcL Radiology/Studies: None to review Assessment/Plan: 46 y/o M with presenting for evaluation of thrombocytopenia. His work up did not reveal any causative factor. Platelets down a bit today but he has been sick with a virus. #. Thrombocytopenia -Platelet count down today ----> recent GI virus -No complaints of bleeding / bruising / petechiae. -No indication for therapy at this time. -Will recheck platelet count in about 6 weeks when he comes down to the area for work ( Prefers all labwork at [facility] ). -Routine health maintenance with Dr. Sancho Mims will call in the interim with any clinical concerns including bleeding, bruising, petechiae. NORMA ALEJANDRA APRN Hematology and Oncology documented in this encounter Plan of Treatment Upcoming Encounters Date Type Specialty Care Team Description 09/06/2022 Appointment Hematology and Oncology 09/06/2022 Office Visit Hematology and Oncology Maikel Rebolledo MD [facility] HEMATOLOGY/[place] [address] Norma Alejandra APRN [facility] HEMATOLOGY-[place] [address] Marleen Reis MD [facility] [address] HEMATOLOGY/[place] [address] documented as of this encounter Visit Diagnoses Diagnosis Thrombocytopenia Thrombocytopenia, unspecified documented in this encounter Care Teams Section Beamer Relationship Specialty Start Date End Date Kurtis Kingsley DO PCP - General 09/27/10 03/22/[address] [place] [address] [address] [place] [address] documented as of this encounter
--- OUTSIDE RECORDS SUMMARY | 2022-08-02 13:00 | XMS_ITS | Encounter Summary ---
:1970 Author Organization [facility] [place] [address] Care Team Providers Name Role Phone Kurtis Kingsley DO Primary Care Provider Reason for Referral Diagnostic Test (Routine) - Specialty Diagnoses / Procedures Referred By Contact Refer red To Contact Procedures [facility] Hem Onc 3k CT Abdomen & [place] [address] Referral ID Status Reason Start Date Expiration Visits Visits Date Requested Authorized [id number] Specialty 01/07/2018 07/06/2018 1 1 Service Requested Encounter Details Date Type Department Care Team Description 01/07/2018 External Results Hematology and Oncology at [facility] [place] [address] Social History Tobacco Use Types Packs/Day [...] MD [facility] DR HEMATOLOGY/[place] [address] Norma Garrido APRN [facility] [address] HEMATOLOGY[place] [address] Marleen Reis MD [facility] DR HEMATOLOGY/[place] [address] documented as of this encounter Procedures Procedure Name Priority Date/Time Associated Comments Diagnosis URINALYSIS WITHOUT Routine 01/04/2018 8:15 AM Res ults for this MICROSCOPIC EST procedure are i n the results section. COMPREHENSIVE Routine 01/04/2018 8:15 AM Results for this METABOLIC PANEL EST procedure ar e in (NON-FASTING) the results section. documented in this encounter Results Urinalysis without microscopic (01/04/2018 8:15 AM EST) [facility] Superbly Method Time Signature Color UA Yellow EXTERNAL LAB Appearance UA Clear EXTERNAL LAB Spec [place] UA 1.025 1.005 - EXTERNAL LAB 1.025 pH UA 5.5 5 - 8 EXTERNAL LAB Protein UA Negative EXTERNAL LAB Glucose UA Negative EXTERNAL LAB Ketones UA Negative EXTERNAL LAB Bilirubin UA Negative EXTERNAL LAB Urobilinogen UA 0.2 EXTERNAL LAB Blood UA Negative EXTERNAL LAB Leukocytes UA Negative EXTERNAL LAB Nitrite UA Negative EXTERNAL LAB Specimen (Source) Anatomical Collection Method Collection Time Re ceived Time Location / / Volume Laterality Urine specimen 01/04/2018 8:15 AM (specimen) EST Historical Provider URINE ORDERABLES Performing Organization Address City/State/ZIP Code Phon e Number EXTERNAL FACILITY EXTERNAL LAB (ABNORMAL) Comprehensive metabolic panel (non-fasting) (01/04/2018 8:15 AM EST) [facility] Superbly Method Time Signature Glucose Lvl 100 70 - 100 EXTERNAL LAB BUN 19 7 - 18 EXTERNAL LAB (EXTERNAL/ ABN) Creatinine 1.28 0.70 - EXTERNAL LAB 1.30 Estimated GFR >=60 EXTERNAL LAB Sodium 142 136 - 142 EXTERNAL LAB Potassium 4.0 3.5 - 5.1 EXTERNAL LAB Chloride 103 98 - 107 EXTERNAL LAB CO2 29 21.0 - EXTERNAL LAB 32.0 Calcium 9.2 8.5 - 10.1 EXTERNAL LAB Total Protein 7.5 6.4 - 8.2 EXTERNAL LAB Albumin 4.3 3.4 - 5.0 EXTERNAL LAB Total Bilirubin 0.52 0.2 - 1.0 EXTERNAL LAB Alk Phos 75 46 - 116 EXTERNAL LAB AST 20 15 - 37 EXTERNAL LAB ALT 52 16 - 63 EXTERNAL LAB Specimen (Source) Anatomical Collection Method Collection Time Re ceived Time Location / / Volume Laterality Blood specimen 01/04/2018 8:15 AM (specimen) EST Historical Provider MD CHEMISTRY ORDERABLES Performing Organization Address City/State/ZIP Code Phon e Number EXTERNAL FACILITY EXTERNAL LAB documented in this encounter Visit Diagnoses Not on filedocumented in this encounter Care Teams Manager Business Systems Relationship Specialty Start Date End Date Kurtis Kingsley DO PCP - General 09/27/10 03/22/[address] [place] [address] documented as of this encounter
--- OUTSIDE RECORDS SUMMARY | 2022-08-02 13:00 | XMS_ITS | Encounter Summary ---
:1970 Author Organization [facility] [place] [address] Care Team Providers Name Role Phone Kurtis Kingsley Primary Care Provider Encounter Details Date Type Department Care Team Description 11/30/2015 External Results Hematology and Oncology Maikel Rebolledo MD at [facility] Carline johnson HEMATOLOGY/[place] [address] DEPT. [phone] [place], [place] [address] (Wo rk) Social History Tobacco [...] Visit Hematology and Oncology Maikel Rebolledo MD [facility] HEMATOLOGY/[place] [address] Norma Garrido APRN [facility] [place]EMATOLOGY[place] [address] Marleen Reis MD [facility] HEMATOLOGY/[place] [address] documented as of this encounter Procedures Procedure Name Priority Date/Time Associated Comments Diagnosis HELICOBACTER PYLORI Routine 11/15/2015 2:36 PM Re sults for this ANTIGEN STOOL EST procedure are in the results section. documented in this encounter Results Helicobacter pylori Antigen Stool (11/15/2015 2:36 PM EST) P athologist Signature H pylori negative EXTERNAL LAB Antigen, Stool Specimen (Source) Anatomical Collection Method Collection Time Re ceived Time Location / / Volume Laterality Stool specimen 11/15/2015 2:36 PM (specimen) EST Maikel Rebolledo MD MICROBIOLOGY - GENERAL ORDER JESUS Performing Organization Address City/State/ZIP Code Phon e Number EXTERNAL FACILITY EXTERNAL LAB documented in this encounter Visit Diagnoses Not on filedocumented in this encounter Care Teams Calender Wind Up Helper Relationship Specialty Start Date End Date Kurtis Kingsley DO PCP - General 09/27/10 03/22/[address] [place] [address] documented as of this encounter
--- OUTSIDE RECORDS SUMMARY | 2022-08-02 13:00 | XMS_ITS | Encounter Summary ---
:1970 Author Organization [facility] [place] [address] Care Team Providers Name Role Phone SanchoKurtis mcdaniel Primary Care Provider Encounter Details Date Type Department Care Team Description 10/24/2017 Hospital Encounter Hematology and Thrombo cytopenia; [place]cology at [facility] Idiopathic thrombocytopenic purpura; [facility] Non morbi d obesity due to excess calories; [place] [id number] Social History Tobacco Use Types Packs/Day Years [...] Rebolledo MD [facility] DR HEMATOLOGY/[place] [address] Norma Garrido APRN [facility] [address] [place]EMATOLOGY[place] [address] Marleen Reis MD [facility] DR HEMATOLOGY/[place] [address] Scheduled Orders Name Type Priority Associated Diagnoses Order S chedule CBC (with Diff) Lab STAT Idiopathic thrombocytopen ic 1 Occurrences starting purpura 10/24/2017 unti l 10/24/2017 CBC (with Diff) Lab STAT Thrombocytopenia 1 Occurrences starting Non morbid obesity due to until excess calories 10/24/2017 Multiple lipomas documented as of this encounter Procedures Procedure Name Priority Date/Time Associated Diagnosis Comme nts HEMOGRAM Routine 10/24/2017 2:04 PM Thrombocytopenia Resul ts for this EST procedure are i n the results section. DIFFERENTIAL, Routine 10/24/2017 2:04 PM Thrombocytopenia Resu lts for this AUTOMATED EST procedure are i n the results section. CBC (WITH DIFF) Routine 10/24/2017 2:04 PM Thrombocytopenia EST documented in this encounter Results Differential, Automated (10/24/2017 2:04 PM EST) athologist Signature Neutrophils % 51.0 % [facility] Neutr Abs (ANC) 2.63 1.70 - [facility] 6.10 [facility] x10(3)/[facility] LABORATORY Lymphocytes % 39.0 % [facility] Lymphocytes Abs 2.0 0.9 - 3.2 [facility] x10(3)/[facility] LABORATORY Monocytes % 7.8 % [facility] Monocyte Abs 0.4 0.3 - 0.9 [facility] x10(3)/[facility] LABORATORY Eosinophils % 1.4 % [facility] Eosinophils Abs 0.1 0.0 - 0.4 [facility] x10(3)/[facility] LABORATORY Basophils % 0.4 % [facility] Basophils Abs 0.0 0.0 - 0.1 [facility] x10(3)/[facility] LABORATORY Immature Gran % 0.40 % [facility] Comment: Immature granulocytes(IG's)percentage an d absolute count will include metamyelocytes, myelocytes, and promyelo cytes. Blood smears from CBCs yielding IG's will be scanned manually for concor dance. If this scan disagrees with the automated IG or if promyelocytes are not ed, a manual differential will be performed. Cheli Gran Abs 0.02 0.00 - 0.04 x10(3)/[facility] MAR Y [facility] LABORATORY Specimen Anatomical Collection Method Collection Time Receive d Time (Source) Location / / Volume Laterality Blood specimen 10/24/2017 2:04 PM 017 2:32 (specimen) EST PM EST Resulting Agency Comment Spec In Lab Norma Garrido APRN HEMATOLOGY ORDERABLES Performing Organization Address City/State/ZIP [place] [address] (ABNORMAL) Hemogram (10/24/2017 2:04 PM EST) Analysis Performed At Patho logist Time Signature WBC 5.2 4.0 - 9.5 [facility] x10(3)/[facility] LABORATORY RBC 5.38 4.58 - [facility] 5.54 [facility] x10(6)/[facility] LABORATORY Hemoglobin 16.3 13.7 - [facility] 16.5 gm/dL [facility] Hematocrit 44.[address] 40[address] [facility] 48.5 % [facility] LAB[facility] MCV 82.2 (L) 82.9 - [facility] 93.1 [facility] LABORATORY MCH 30.3 27.5 [facility] 32.1 pg [facility] LAB[facility] MCHC 36.9 (H) 32.0 - [facility] 35.7 gm/dL [facility] Platelets 84 (L) 145 - 357 [facility] x10(3)/[facility] LABORATORY RDWSD 38.3 36.0 - [facility] 45.0 [facility] LABORATORY RDWCV 12.8 11.4 - [facility] 13.8 % [facility] LABORATORY MPV 11.5 7.6 - 12.9 [facility] LABORATORY nRBC % Auto 0.0 % [facility] nRBC Abs Auto 0.000 0.000 - [facility] 0.000 [facility] x10(3)/[facility] LABORATORY Specimen Anatomical Collection Method Collection Time Receive d Time (Source) Location / / Volume Laterality Blood specimen 10/24/2017 2:04 PM 017 2:32 (specimen) EST PM EST Resulting Agency Comment Spec In Lab Norma Garrido SAND POLISHER HEMATOLOGY ORDERABLES Performing Organization Address City/State/ZIP [place] [address] documented in this encounter Visit Diagnoses Diagnosis Thrombocytopenia Thrombocytopenia, unspecified Idiopathic thrombocytopenic purpura Immune thrombocytopenic purpura Non morbid obesity due to excess calorie s Multiple lipomas Lipoma of unspecified site documented in this encounter Care Teams Detailer Relationship Specialty Start Date End Date Kurtis Kingsley DO PCP - General 09/27/10 03/22/[address] [place] [address] documented as of this encounter
--- OUTSIDE RECORDS SUMMARY | 2022-08-02 13:00 | XMS_ITS | Encounter Summary ---
:1970 Author Organization [facility] [place] [address] Care Team Providers Name Role Phone SanchoKurtis mcdaniel Primary Care Provider Encounter Details Date Type Department Care Team Description 04/19/2016 Hospital Encounter Hematology and ITP (id iopathic Oncology at [facility] thrombocytopenic purpura) [place] [phone] Social History Tobacco Use Types Packs/Day Years [...] and Oncology Maikel Rebolledo MD [facility] [address] HEMATOLOGY/[place] [address] Norma Garrido APRN [facility] [address] [place]EMATOLOGY-[place] [address] Marleen Reis MD [facility] [address] HEMATOLOGY/[place] [address] documented as of this encounter Procedures Procedure Name Priority Date/Time Associated Diagnosis Comme nts HEMOGRAM Routine 04/19/2016 3:18 ITP (idiopathic Results f or this PM EDT thrombocytopenic procedure a re in purpura) the results section. DIFFERENTIAL, Routine 04/19/2016 3:18 ITP (idiopathic Results for this AUTOMATED PM EDT thrombocytopenic procedure a re in purpura) the results section. CBC (WITH DIFF) Routine 04/19/2016 3:18 ITP (idiopathic PM EDT thrombocytopenic purpura) COMPREHENSIVE Routine 04/19/2016 3:18 ITP (idiopathic Results for this METABOLIC PANEL PM EDT thrombocytopenic procedur e are in (NON-FASTING) purpura) the results section. documented in this encounter Results Differential, Automated (04/19/2016 3:18 PM EDT) athologist Signature Neutrophils % 48.0 % [facility] Neutr Abs (ANC) 2.66 1.50 - [facility] 6.30 [facility] x10(3)/[facility] LABORATORY Lymphocytes % 42.3 % [facility] Lymphocytes Abs 2.3 1.0 - 3.6 [facility] x10(3)/[facility] LABORATORY Monocytes % 6.9 % [facility] Monocyte Abs 0.4 0.2 - 1.0 [facility] x10(3)/[facility] LABORATORY Eosinophils % 2.0 % [facility] Eosinophils Abs 0.1 0.0 - 0.5 [facility] x10(3)/[facility] LABORATORY Basophils % 0.4 % [facility] Basophils Abs 0.0 0.0 - 0.2 [facility] x10(3)/[facility] LABORATORY Immature Gran % 0.40 % [facility] [...] Cheli Gran Abs 0.02 0.00 - 0.05 x10(3)/[facility] MAR Y [facility] LABORATORY Specimen Anatomical Collection Method Collection Time Receive d Time (Source) Location / / Volume Laterality Blood specimen 04/19/2016 3:18 PM 016 3:27 (specimen) EDT PM EDT Resulting Agency Comment Spec In Lab Maikel Rebolledo MD HEMATOLOGY ORDERABLES Performing Organization Address City/State/[place] [address] (ABNORMAL) Hemogram (04/19/2016 3:18 PM EDT) P athologist Signature WBC 5.5 4.0 - 10.0 [facility] x10(3)/[facility] LABORATORY RBC 5.65 4.63 - 6.08 [facility] x10(6)/[facility] LABORATORY Hemoglobin 16.6 13.7 - 17.5 [facility] gm/dL [facility] Hematocrit 47.0 40.0 - 51.0 [facility] LABORATORY MCV 83.2 79.0 - 92.0 [facility] LABORATORY MCH 29.4 25.6 - 32.2 [facility] LABORATORY MCHC 35.3 32.0 - 36.5 [facility] gm/dL [facility] Platelets 86 (L) 145 - 370 [facility] x10(3)/[facility] LABORATORY RDWSD 38.4 35.0 - 46.0 [facility] LABORATORY RDWCV 12.9 10.9 - 14.4 [facility] LABORATORY MPV 11.5 9.0 - 12.0 [facility] LABORATORY Specimen Anatomical Collection Method Collection Time Receive d Time (Source) Location / / Volume Laterality Blood specimen 04/19/2016 3:18 PM 016 3:27 (specimen) EDT PM EDT Resulting Agency Comment Spec In Lab Maikel Rebolledo MD HEMATOLOGY ORDERABLES Performing Organization Address City/State/ZIP Code Phon e Number [facility] [place] [address] (ABNORMAL) Comprehensive metabolic panel (non-fasting) (04/19/2016 3:18 PM EDT) athologist Signature Glucose Lvl 84 65 - 199 [facility] mg/dL [facility] Comment: Diabetes: >=200 mg/dL plus symp toms BUN 20 10 - 20 mg/dL [facility] Creatinine 1.33 0.80 - 1.50 mg/dL [facility] Comment: Please note that the pediatric reference intervals supplied above were not validated at [facility]. Results from pediatri c patients should be interpreted in conjunction to the patient's age, height and muscle mass. Sodium 140 135 - 145 mmol/L [facility] Potassium 4.0 3.5 - 5.0 mmol/L [facility] Comment: Please note: ??Patients with WBC >100,00 0 may have falsely elevated Potassium levels. ??For accurate Potassium quantif ication in these patients send serum separator tube (gold top) for subsequent determinations. ??Contact the Clinical Chemistry Laboratory if there are any qu estions. Chloride 101 98 - 107 mmol/L [facility] CO2 23 22 - 31 mmol/L [facility] Anion Gap 16 (H) 5 - 15 mmol/L [facility] Calcium 9.3 8.5 - 10.5 mg/dL [facility] Total Protein 7.4 6.1 - 8.0 gm/dL [facility] Albumin 4.9 3.2 - 5.2 gm/dL [facility] AST 19 0 - 39 unit/L [facility] ALT 37 0 - 55 unit/L [facility] Alk Phos 73 40 - 120 unit/L [facility] Total Bilirubin 0.4 0.2 - 1.3 mg/dL [facility] Bili, Direct 0.1 0.0 - 0.3 mg/dL [facility] Estimated GFR 59 (L) >=60 [facility] Comment: This estimated GFR (eGFR) [...] the following links into your internet browser. 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
--- OUTSIDE RECORDS SUMMARY | 2022-08-02 13:00 | XMS_ITS | Encounter Summary ---
:1970 Author Organization [facility] [place] [address] Care Team Providers Name Role Phone Kurtis Kingsley Primary Care Provider Reason for Visit Reason Comments Follow-up Encounter Details Date Type Department Care Team Description 12/15/2015 Office Visit Hematology and Maikel Rebolledo MD [facility] DR HEMATOLOGY/[place] [address] ITP (idiopathic Oncology at [facility] Norma Garrido APRN [facility] [address] HEMATOLOGY-[place] [address] thrombocytopenic purpura) [facility] Remy Bain MD [facility] DR HEMATOLOGY/[place] [address] [place] [address] Social History Tobacco Use Types Packs/Day Years Used Date Never Smoker Smokeless Tobacco: Never Used Alcohol Use Standard Drinks/Week Comments Yes 0 (1 standard drink = 0.6 oz pure alcoho l) Sex Assigned at Date Recorded Not on file documented as of this encounter Last Filed Vital Signs Vital Sign Reading Time Taken Comments Blood Pressure 122/79 12/15/2015 3:53 PM EST Pulse 84 12/15/2015 3:53 PM EST Temperature 36.2 ??C (97.2 ??F) 12/15/2015 3:53 PM EST Respiratory Rate 18 12/15/2015 3:53 PM EST Oxygen Saturation 100% 12/15/2015 3:53 PM EST Inhaled Oxygen Concentration - - Weight 90.5 kg (199 lb 8 oz) 12/15/2015 3:53 PM EST Height - - Body Mass Index 28.88 11/17/2015 11:32 AM EST documented in this encounter Progress Notes Maikel Rebolledo MD - 12/15/2015 4:34 PM EST Hematology Staff Addendum: I have seen and examined the patient, reviewed all pertinent clinical, laboratory and radiographic data and discussed the case in depth on rounds with Dr Bain today. I agree with the findings, assessment and plan as outlined in today's note, with any changes or add'l comments included below. I reviewed the dx with Prasanna. His plates are ranging from 73-93K. He has no bleeding, petechia etc. I aksed that he obtain an emergency bracelet due to his ITP. We will check CBC in one mth - pt prefers to come here around Mid-January 2016 To see us in approx 3 mths Once stable, we will aim for CBC quaterly and to see us every 6 mths I reviewed all of the above with the pt and emphasized the need for close f/u and the seriousness ofa low platelet count Quirino Rebolledo MD Staff Remy Bain - 12/15/2015 2:37 PM EST Images from the original note [...] to last visit. Continues to live active lifestyle. Rest of the ROS is negative. Review [...] states he is taking .5 mg ??? cycloSPORINE (RESTASIS) 0.05 % ophthalmic emulsion ??? [DISCONTINUED] gabapentin (NEURONTIN) 300 mg capsule Take 300 mg by mouth daily. ??? [DISCONTINUED] pramipexole (MIRAPEX) 0.25 mg tablet Take 0.5 mg by mouth daily. ??? FEXOFENADINE HCL (DAVID ORAL) No current facility-administered medications on file prior to visit. 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 - Smoking: never - Alcohol: rarely - He lives in [place], [place] with his and 3 kids. Family History: - Mother: was tested negative for PLT antigen 1; never had low plt count; - Father: htn, dlp -Siblings: brother and sister: both healthy; His sister also had low plt count at and was transfused; no issues now. Brother is a classics professor at [employer]. 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 Vital Signs: BP 122/79 mmHg Pulse 84 Temp(Src) 36.2 ??C (97.2 ??F) (Temporal) Resp 18 Wt 90.493 kg (199 lb 8 oz) SpO2 100% Physical Exam: GA: pleasant; cooperative; no apparent [...] hour(s)) Hemogram Result Value Ref Range WBC 5.0 4.0 - 10.0 x10(3)/mcL RBC 5.57 4.63 - 6.08 x10(6)/mcL Hemoglobin 16.4 13.7 - 17.5 gm/dL Hematocrit 46.5 40.0 - 51.0 % MCV 83.5 79.0 - 92.0 fL MCH 29.4 25.6 - 32.2 pg MCHC 35.3 32.0 - 36.5 gm/dL Platelets 73 (L) 145 - 370 x10(3)/mcL RDWSD 38.8 35.0 - 46.0 fL RDWCV 12.9 10.9 - 14.4 % MPV 11.6 9.0 - 12.0 fL Differential, Automated Result Value Ref Range Neutrophils % 48.5 % Neutr Abs (ANC) 2.40 1.50 - 6.30 x10(3)/mcL Lymphocytes % 40.0 % Lymphocytes Abs 2.0 1.0 - 3.6 x10(3)/mcL Monocytes % 8.9 % Monocyte Abs 0.4 0.2 - 1.0 x10(3)/mcL Eosinophils % 2.0 % Eosinophils Abs 0.1 0.0 - 0.5 x10(3)/mcL Basophils % 0.4 % Basophils Abs 0.0 0.0 - 0.2 x10(3)/mcL Immature Gran % 0.20 % Cheli Gran Abs 0.01 0.00 - 0.05 x10(3)/mcL Radiology/Studies: None to [...] M with presenting for evaluation of thrombocytopenia. Work up did not reveal any infection. No likely offending medications. Other cell lines normal. Normal morphology and size of platelets. Therefore the most likely explanation for his thrombocytopenia is ITP. 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 Today, we discussed the natural course of ITP, and indications to treat. Mr Shipman does not meet criteria for therapy at this time. Will continue to follow. Will repeat CBC in 1 month, follow up in 4 months. Pt knows to call with any concerning symptoms. REMY BAIN MD documented in this encounter Plan of Treatment Upcoming Encounters Date Type Specialty Care Team Description 09/06/2022 Appointment Hematology and Oncology 09/06/2022 Office Visit Hematology and Oncology Maikel Rebolledo MD [facility] DR HEMATOLOGY/[place] [address] Norma Garrido APRN [facility] [place]EMATOLOGY[place] [address] Marleen Reis MD [facility] DR HEMATOLOGY/[place] [address] documented as of this encounter Results Comprehensive metabolic panel (non-fasting) (01/19/2016 10:36 AM EDT) athologist Signature Glucose Lvl 99 65 - 199 [facility] mg/dL [facility] Comment: Diabetes: >=200 mg/dL plus symp toms BUN 16 10 - 20 mg/dL [facility] Creatinine 1.21 0.80 - 1.50 mg/dL [facility] Comment: Please note that the pediatric reference intervals supplied above were not validated at [facility]. Results from pediatri c patients should be interpreted in conjunction to the patient's age, height and muscle mass. Sodium 138 135 - 145 mmol/L [facility] Potassium 4.3 3.5 - 5.0 mmol/L [facility] Comment: Please note: ??Patients with WBC >100,00 0 may have falsely elevated Potassium levels. ??For accurate Potassium quantif ication in these patients send serum separator tube (gold top) for subsequent determinations. ??Contact the Clinical Chemistry Laboratory if there are any qu estions. Chloride 101 98 - 107 mmol/L [facility] CO2 26 22 - 31 mmol/L [facility] Anion Gap 11 5 - 15 mmol/L [facility] Calcium 9.6 8.5 - 10.5 mg/dL [facility] Total Protein 7.6 6.1 - 8.0 gm/dL [facility] Albumin 4.9 3.2 - 5.2 gm/dL [facility] AST 23 0 - 39 unit/L [facility] ALT 45 0 - 55 unit/L [facility] Alk Phos 76 40 - 120 unit/L [facility] Total Bilirubin 0.4 0.2 - 1.3 mg/dL [facility] Bili, Direct 0.1 0.0 - 0.3 mg/dL [facility] Estimated GFR >60 >=60 [facility] Comment: This estimated GFR (eGFR) [...] the following links into your internet browser. 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
--- OUTSIDE RECORDS SUMMARY | 2022-08-02 13:00 | XMS_ITS | Encounter Summary ---
:1970 [place] [address] Care Team Providers Name Role Phone SanchoKurtis mcdaniel Primary Care Provider Encounter Details Date Type Department Care Team Description 12/09/2014 Interpretation Only Radiology at [facility] Ce nter None [address] [place] [address] [place] [address] Social History Tobacco Use Types Packs/Day [...] [facility] [address] Norma Garrido APRN [facility] [place]EMATOLOGY[place] [address] Marleen Reis MD [facility] HEMATOLOGY/[place] [address] documented as of this encounter Procedures Procedure Name Priority Date/Time Associated Diagnosis Comme nts XR FLUORO NO RAD Routine 12/09/2014 7:52 AM Resul ts for this <1HR - RADIOLOGY EST procedure a re in USE the results section. documented in this encounter Results XR Fluoro <1Hr - Radiology Use (12/09/2014 7:52 AM EST) Anatomical Region Laterality Modality N/A Radiographic Imaging Specimen (Source) Anatomical Collection Method Collection Time Re ceived Time Location / / Volume Laterality 12/09/2014 7:52 AM EST Narrative 12/09/2014 7:52 AM EST APD Historical Result Principal Cloth Weaver: ??PIYUSH ??AMANDA Bonds INTRAOPERATIVE FLUOROSCOPY: A total of 6.0 seconds (483.84 mrad) of intraoperative fluoroscopy was used by Dr Roger. ?? There was no Radiologist present during the exam. One spot image documents radiopaque instrument indicating the L4-5 level. ??There was no Radiologi st present during the exam. Piyush Britt MD [facility]/me [id number] CC: Procedure Note Unknown - 05/05/2019Formatting of this n ote might be different from the original. APD Historical Result Principal Cloth Weaver: PIYUSH BRITT INTRAOPERATIVE FLUOROSCOPY: A total of 6.0 seconds (483.84 mrad) of intraoperative fluoroscopy was used by Dr Roger. There was no Radiologist present during the exam. One spot image documents radiopaque instrument indicating the L4-5 level. There was no Radiologist present during the exam. Piyush Britt MD [facility] [id number] CC: Unknown IMG FLUORO ORDERABLES documented in this encounter Visit Diagnoses Not on filedocumented in this encounter Care Teams Checker Cashier Relationship Specialty Start Date End Date Kurtis Kingsley DO PCP - General 09/27/10 03/22/22 [address] [place] [address] documented as of this encounter
[2022-08-04 15:41] LABS: COVID-19 RT-PCR UVMMC Result Negative (Negative)
== END 2022-08-02 12:57 | disposition home or self-care (01) ==
LOC: LBN 12:56
PROVIDERS: PCP Family Medicine; Visit Provider Nurse Practitioner Family
DX: J06.9 Acute upper respiratory infection, unspecified (principal); Z20.822 Contact with and (suspected) exposure to COVID-19
CPT/HCPCS: U0003

== ENCOUNTER 2022-09-14 05:05 | Outpatient (CLI) | payer MEDICAID, SELFPAY ==
--- NOTE | 2022-09-14 13:00 | NS.NUTBLAN_ITS ---
Prasanna was referred for lipid and weight management. 52 years old 5'9 216 lbs BMI: 32 PMH: Sleep apnea, HLD, elevated BP without HTN Labs: (07/27/22): chol: 191, LDL: 112, HDL: 30, Tri Meds: protonix Diet Recall: Breakfast: oatmeal or eggs and gonzalez, Lunch: on road, typically convenience foods, Dinner: mostly home made. No alcohol or sweet beverages. Drinks diet coke and water during day. Prasanna works 60 hours a week but makes time to exercise 2 hours at a gym each week (5:30-6:30 AM TTH). Overall, his diet is not excessive in cholesterol or high sugar foods. Chol and LDL acceptable, however, HDL and triglycerides out of range. Excess weight mostly in middle. Suspect starting down path of metabolic syndrome with a genetic component of hyperlipidemia. Educated Prasanna on how to follow a lower carb, higher protein diet with emphasis on complex carbs, lean protein and healthy fats with large intakes of nonstarchy vegetables, seafood and beans. Provided meal plans adjusted to his preferences. Recommend 4-5 hours cardio a week with a 10% weight loss. Goal is to reduce waist circumference to less than 40 inches. Recommend fasting lipids at next blood draw. No follow up planned at this time.
== END 2022-09-14 05:06 | disposition home or self-care (01) ==
LOC: DS 05:05
PROVIDERS: PCP Family Medicine; Visit Provider Dietitian, Registered
DX: R03.0 Elevated blood-pressure reading, without diagnosis of hypertension (principal); G47.30 Sleep apnea, unspecified; E78.5 Hyperlipidemia, unspecified
CPT/HCPCS: 97802

== ENCOUNTER → 2022-10-24 00:54 | Outpatient (CLI) | payer MEDICAID, SELFPAY ==
--- NOTE | 2022-10-24 15:14 | DI.CT_ITS ---
Exam(s) CT SINUS WO EXAM: CT SINUS WO CLINICAL HISTORY: acute maxillary on chronic sinusitis,j01.00. TECHNIQUE: Imaging Protocol: Axial computed tomography images with coronal and sagittal reformatted images were created and reviewed. No IV Contrast COMPARISON: CT CT HEAD WO from 03/24/2021 FINDINGS: MAXILLARY SINUSES: There is no ominous complete opacification of the left maxillary sinus. This sinus was previously cl ear on 03/24/2021 imaging. No bone dehiscence. No surgical defects noted. In the opposite-right ma xillary sinus is some mucosal thickening noted but no associated fluid level. There is no evidence of bone dehiscence. OSTIOMEATAL UNITS: Left ostiomeatal units opacified. Right is clear. ETHMOIDAL AIR CELLS: Mild opacification bilaterally. SPHENOID SINUSES: Mild mucosal thickening. No cysts fluid level. FRONTAL SINUSES: Mucosal thickening fluid, more prominent on the right side. No bone dehiscence. NASAL SEPTUM AND TURBINATES:Nasal septum is midline with no evidence of significant nasal septal spur . There is no evidence of frieda bullosa. IMPRESSION: 1. Multilevel sinusitis as described above. These findings were not present on prior CT scan of . There is no bone dehiscence. RADIATION DOSE DELIVERED: 123.74mGy.cm Total DLP DATA REPOSITORY: All CT scans at this facility are submitted to the National Radiology Data Registry (NRDR) Dose Index Registry (DIR) with the [employer] (ACR). RADIATION OPTIMIZATION: All CT scans at this facility use at least one of these dose optimization te chniques: automated exposure control; mA and/or kV adjustment per patient size (includes targeted exa ms where dose is matched to clinical indication); or iterative reconstruction.
== END ==
PROVIDERS: PCP Family Medicine; Visit Provider Family Medicine
DX: J01.00 Acute maxillary sinusitis, unspecified (principal)
CPT/HCPCS: 70486

== ENCOUNTER 2022-12-15 01:54 | Outpatient (CLI) | payer MEDICAID, SELFPAY ==
[2022-12-15 15:48] LABS: ESR < 1 mm/hr (0-15)
[2022-12-15 17:07] LABS: C-Reactive Protein 0.52 mg/dL (0.0-0.3); Calcium 8.9 mg/dL (8.5-10.1)
[2022-12-18 18:20] LABS: Angiotensin Converting Enzyme 23 U/L (16 - 85)
[2022-12-19 13:10] LABS: Myeloperoxidase Ab IgG <0.2 U; Proteinase 3 Ab (PR3) <0.2 U
== END 2022-12-15 01:55 | disposition home or self-care (01) ==
LOC: LBO 01:54
PROVIDERS: PCP Family Medicine; Visit Provider Registered Nurse Maternal Newborn
DX: J34.89 Other specified disorders of nose and nasal sinuses; R05.9 Cough, unspecified
CPT/HCPCS: 36415; 82164; 85652; 82310; 83516; 86140

== ENCOUNTER 2023-05-28 02:58 | Outpatient (CLI) | payer MEDICAID, SELFPAY ==
--- NOTE | 2023-05-28 06:45 | DI.MRI_ITS ---
Exam(s) MR UPPER JOINT LT WO EXAM: MR UPPER JOINT LT WO CLINICAL HISTORY: left shoulder pain, not improving with PT,injury, lt shoulder,s49.92xa. TECHNIQUE: Multiplanar multisequence MRI was performed. COMPARISON: CR from 01/12/2017 CR XR CHEST 2V PA LATERAL from 10/21/2019 FINDINGS: BONES: There is no fracture or contusion pattern. JOINTS: There are degenerative changes seen at the acromioclavicular joint. The glenohumeral joint i s normal. TENDONS: Supraspinatus: There is tendinosis of the supraspinatus tendon. There is an ovoid T1 and T2 hypointe nse nodule associated with the supraspinatus tendon which may represent calcific tendinitis. Plain f ilm correlation is recommended. Infraspinatus: There is tendinosis of the infraspinatus tendon. Subscapularis: Unremarkable. Teres Minor: Unremarkable. Biceps and [place]: Unremarkable. MUSCLES: Unremarkable. GLENOID LABRUM: Degeneration is seen in the superior labrum. There is hyperintense signal seen on th e coronal images in the superior labrum suspicious for tear. SOFT TISSUES: Unremarkable. LIGAMENTS: Unremarkable. OTHER: Subacromial and subdeltoid bursae are unremarkable. IMPRESSION: 1. Tendinosis of the supraspinatus and infraspinatus tendons. 2. Findings suspicious for tear of the superior labrum. Note is made of degeneration of the labrum. 3. Degenerative changes seen at the acromioclavicular joint. DATA REPOSITORY:
== END 2023-05-28 03:18 ==
LOC: DI 02:58
PROVIDERS: PCP Family Medicine; Visit Provider Family Medicine
DX: S49.92XA Unspecified injury of left shoulder and upper arm, initial encounter (principal); M19.012 Primary osteoarthritis, left shoulder; M67.813 Other specified disorders of tendon, right shoulder; X58.XXXA Exposure to other specified factors, initial encounter
CPT/HCPCS: 73221

== ENCOUNTER 2023-12-07 03:31 | Outpatient (CLI) | payer MEDICAID, SELFPAY ==
[2023-12-07 11:58] LABS: Abs Immature Grans 0.03 10^3/uL (0.0-0.06); Absolute Basophil Count 0.04 10^3/uL (0.0-0.2); Absolute Eosinophil Count 0.17 10^3/uL (0.0-0.7); Absolute Lymphocyte Count 2.34 10^3/uL (1.2-3.4); Absolute Monocyte Count 0.44 10^3/uL (0.1-0.8); Absolute Neutrophil Count 2.84 10^3/uL (1.2-6.7); Basophils % 0.7; Eosinophils % 2.9; HCT 46.2 % (40.0-50.0); Immature Grans % 0.5; Lymphocytes % 39.9; MCH 27.9 pg (27.0-33.0); MCHC 34.6 % (32.0-36.0); MCV 81 fL (80-95); MPV 11.7 fL (8.0-11.0); Monocytes % 7.5; Neutrophils % 48.5; RBC 5.73 10^6/uL (4.36-5.78); RDW-SD 37.6 fL; WBC 5.86 10^3/uL (4.4-10.8)
[2023-12-07 12:24] LABS: Diff Comment Diff Reviewed; Platelet Count 64 10^3/uL (130-400); RBC Morphology Normal
== END 2023-12-07 03:32 | disposition home or self-care (01) ==
LOC: LBO 03:31
PROVIDERS: PCP Family Medicine; Visit Provider Nurse Practitioner
DX: Z86.2 Personal history of diseases of the blood and blood-forming organs and certain disorders involving the immune mechanism (principal)
CPT/HCPCS: 36415; 85025

== ENCOUNTER 2024-04-08 05:08 | Outpatient (CLI) | payer MEDICAID, SELFPAY ==
[2024-04-08 15:47] LABS: ALT 57 U/L (16-63); AST 24 U/L (15-37); Albumin 4.2 g/dL (3.4-5.0); Alkaline Phosphatase 97 U/L (46-116); Anion Gap 7.9 mmol/L (3-11); BUN 19 mg/dL (7-18); Bilirubin, Total 0.6 mg/dL (0.2-1.0); CO2 30.1 mmol/L (21.0-32.0); CREATININE 1.2 mg/dL (0.70-1.30); Calcium 8.4 mg/dL (8.5-10.1); Chloride 105 mmol/L (98-107); Estimated GFR 73.22 (mL/min/1.73m2); Glucose 110 mg/dL (74-106); Potassium 3.8 mmol/L (3.5-5.1); Sodium 143 mmol/L (136-145)
== END 2024-04-08 05:09 | disposition home or self-care (01) ==
LOC: LBO 05:10
PROVIDERS: PCP Family Medicine; Visit Provider Family Medicine
DX: Z00.00 Encounter for general adult medical examination without abnormal findings (principal); E78.1 Pure hyperglyceridemia
CPT/HCPCS: 36415; 80053

== ENCOUNTER 2024-10-27 11:18 | Outpatient (CLI) | payer OTHER, SELFPAY ==
--- OUTSIDE RECORDS SUMMARY | 2024-10-27 11:22 | XMS_ITS | Encounter Summary ---
Author Organization [facility] Address [address] [place] [address] Care Team Providers Care Transplanter Orchid Name Role Phone Kurtis Kingsley Primary Care Provider [phone] Encounter Details Date Type Department Care Team (Late st Contact Info) Description 08/03/2022 Lab Requisition [facility] Pathology & Laboratory Medicine - [address] [address] Outr Resulting Lab, Provider Social History Tobacco Use Types Packs/Day Years Used Date Smoking Tobacco: Never Assessed Interpersonal Safety Answer Date Record ed Physically Hurt Never 06/06/2020 Verbally Threaten Not on file 06/06/2020 Sex and Gender Information Value Date Recorded Sex Assigned at Not on file Legal Sex Male 18:55 EST Gender Identity Not on file Sexual Orientation Not on file documented as of this encounter Plan of Treatment Not on file documented as of this encounter Procedures Procedure Name Priority Date/Time Associated Diagnosis Comments ZZCOVID-19 TEST [facility] PCR Today 2022 12:35 EDT COVID-19 TESTING Routine 2022 12:3 5 EDT documented in this encounter Results * COVID-19 TEST [facility] PCR (2022 12:35 EDT) Swab 2022 12:3 5 EDT 08/03/2022 17:54 EDT us Provider Outr Resulting Lab MICROBIOLOGY - GENER AL ORDERABLES Final Result [facility] [address] [place] [address] * COVID-19 TESTING (2022 12:35 EDT) COVID-19 rt-PCR Result Negative Negative 08/04/2022 15:35 EDT [facility] Comment: This test has not been FDA cleared or approved. This test has been authorized by FDA under an EUA for use by authorized laboratories. This test has been authorized only for detection of nucleic acid from 2019-nCoV, not for any other viruses or pathogens. This test is only authorized for the duration of the declaration that circumstances exist justifying the authorization of emergency use of in vitro diagnostic tests for detection and/or diagnosis of 2019-nCoV under section 564(b)(1) of Act, 21 U.S.C ?? 360bbb-3(b) (1), unless the authorization is terminated or revoked sooner. Negative results do not preclude 2019-nCoV infection and should not be used as the sole basis for treatment or other patient management decisions. Negative results must be combined with clinical observations, patient history, and epidemiological information. Testing was performed using the jessenia SARS-CoV-2 assay ([employer] on the Jessenia 6800 System Performing Lab Jess[facility] [address] [facility] 08/04/2022 15:35 EDT [facility] Swab 2022 12:3 5 EDT 08/03/2022 17:54 EDT us Provider Outr Resulting Lab MICROBIOLOGY - GENER AL ORDERABLES Final Result [facility] [address] [place] [address] documented in this encounter Visit Diagnoses Not on filedocumented in this encounter Care Teams Transplanter Orchid Relationship Specialty Start Date End Date Kurtis Kingsley DO [address] [place] [address] PCP - General 05/21/15 documented as of this encounter
--- OUTSIDE RECORDS SUMMARY | 2024-10-27 11:22 | XMS_ITS | Encounter Summary ---
Author Organization [facility] Address [address] [place] [address] Care Team Providers Care Clutch Inspector Name Role Phone Kurtis Kingsley Primary Care Provider [phone]- [phone] Encounter Details Date Type Department Care Team (Late st Contact Info) Description 06/11/2020 Lab Requisition [facility] Pathology & Laboratory Medicine - [facility] [address], [place] [id number] Outr Resulting Lab, Provider Social History Tobacco [...] Procedure Name Priority Date/Time Associated Diagnosis Comments DO NOT ORDER STANDALONE - BROAD COVID TEST Today 06/11/2020 9:58 EDT COVID-19 TESTING Routine 06/11/2020 9:58 EDT documented in this encounter Results * DO NOT ORDER STANDALONE - BROAD COVID TEST (06/11/2020 9:58 EDT) COVID-19 rt-PCR Result NEGATIVE Negative 06/12/2020 16:45 EDT [facility] Comment: 2019-novel Coronavirus (2019-nCoV) not detected by the qRT-PCR assay. Consider testing for other respiratory viruses or re-collecting for 2019-nCoV testing. Note: Optimum timing for peak viral levels during infections caused by 2019-nCoV have not been determined. Collection of multiple specimens from the same patient may be necessary to detect the virus. Limitations Positive results are indicative of active infection with SARS-CoV-2 but do not rule out bacterial infection or co-infection with other viruses. The agent detected may not be the definite cause of disease. In addition, detection of viral RNA may not indicate the presence of infectious virus or that SARS-CoV-2 is the causative agent for clinical symptoms. Negative results do not preclude SARS-CoV-2 infection and should not be used as the sole basis for patient management decisions. Negative results must be combined with clinical observations, patient history, and epidemiological information. False negative results may also occur if amplification inhibitors are present in the specimen or if inadequate numbers of organisms are present in the specimen. Optimum specimen types and timing for peak viral levels during infections caused by SARS-CoV-2 have not been fully determined. Collection of multiple specimens (types and time points) from the same patient may be necessary to detect the virus. The test was validated for use with upper respiratory specimens obtained via nasopharyngeal or oropharyngeal swabs in VTM, UTM, M4, M5, M6, saline, and MTM media. The performance of this test has not been established for other specimens. Specimens collected using other FDA recommended Specimen Collection Materials listed in the FDA COVID-19 [employer] communication (January 29, 2020) are processed with the caveat that they were not [...] in accordance with CLIA regulations, [employer] (CAP) guidelines (Jan 22, 2020), and FDA guidance (Jan 03, 2020). This test is only for use under the Food and Drug Administration's Emergency Use Authorization. Swab ENTIRE NASOPHARYNX / Unknown 06/11/2020 9:58 EDT 06/11/2020 15:55 EDT us Provider Outr Resulting Lab MICROBIOLOGY - GENER AL ORDERABLES Final Result [facility] [place], [place] * COVID-19 TESTING (06/11/2020 9:58 EDT) COVID-19 rt-PCR Result NEGATIVE Negative 06/12/2020 18:02 EDT [facility] Comment: 2019-novel Coronavirus (2019-nCoV) not detected by the qRT-PCR assay. Consider testing for other respiratory viruses or re-collecting for 2019-nCoV testing. Note: Optimum timing for peak viral levels during infections caused by 2019-nCoV have not been determined. Collection of multiple specimens from the same patient may be necessary to detect the virus. Limitations Positive results are indicative of active infection with SARS-CoV-2 but do not rule out bacterial infection or co-infection with other viruses. The agent detected may not be the definite cause of disease. In addition, detection of viral RNA may not indicate the presence of infectious virus or that SARS-CoV-2 is the causative agent for clinical symptoms. Negative results do not preclude SARS-CoV-2 infection and should not be used as the sole basis for patient management decisions. Negative results must be combined with clinical observations, patient history, and epidemiological information. False negative results may also occur if amplification inhibitors are present in the specimen or if inadequate numbers of organisms are present in the specimen. Optimum specimen types and timing for peak viral levels during infections caused by SARS-CoV-2 have not been fully determined. Collection of multiple specimens (types and time points) from the same patient may be necessary to detect the virus. The test was validated for use with upper respiratory specimens obtained via nasopharyngeal or oropharyngeal swabs in VTM, UTM, M4, M5, M6, saline, and MTM media. The performance of this test has not been established for other specimens. Specimens collected using other FDA recommended Specimen Collection Materials listed in the FDA COVID-19 [employer] communication (January 29, 2020) are processed with the caveat that they were not [...] in accordance with CLIA regulations, [employer] (CAP) guidelines (Jan 22, 2020), and FDA guidance (Jan 03, 2020). This test is only for use under the Food and Drug Administration's Emergency Use Authorization. Performing Lab [facility] 06/12/2020 18:02 EDT [facility] Swab 06/11/2020 9:58 EDT 06/11/2020 15:55 EDT us Provider Outr Resulting Lab MICROBIOLOGY - GENER AL ORDERABLES Final Result [facility] [address] [place] [address] [facility] [place] documented in this encounter Visit Diagnoses Not on filedocumented in this encounter Additional Health Concerns Infection Onset Date Last Indicated Resolved Time COVID-19 12/30/2020 12/30/2020 01/29/2021 22:1 5 EDT documented as of this encounter Care Teams Clutch Inspector Relationship Specialty Start Date End Date Kurtis Kingsley DO [address] [place] [address] PCP - General 05/21/15 documented as of this encounter
--- OUTSIDE RECORDS SUMMARY | 2024-10-27 11:22 | XMS_ITS | Encounter Summary ---
Author Organization [facility] Address [address] [place] [address] Care Team Providers Care Ensemble Member Name Role Phone Unknown, Provider Primary Care Provider Unava ilable Encounter Details Date Type Department Care Team (Late st Contact Info) Description 05/14/2015 Results Only [facility] [phone] Jose Abbott, [address] [place] [address] Social History Tobacco Use Types Packs/Day Years Used Date Smoking Tobacco: Never Assessed Sex and Gender Information Value Date Recorded Sex Assigned at Not on file Legal Sex Male 18:55 EST Gender Identity Not on file Sexual Orientation Not on file documented as of this encounter Plan of Treatment Not on file documented as of this encounter Procedures Procedure Name Priority Date/Time Associated Diagnosis Comments SURGICAL PATHOLOGY Routine 05/14/2015 18 :36 EDT documented in this encounter Results * SURGICAL PATHOLOGY (05/14/2015 18:36 EDT) Pathology Report: SURGICAL PATHOLOGY REPORT Reports generated via electronic interface contain original data; however they are lacking the format of the original report. Caution should be taken when reading/interpret ing unformatted reports. Name: ? PRASANNA SHIPMAN ? Accession #: ? [id number] ? : ? 1970 (Age: 44) ??M ? Collect Date: ? 05/14/2015 ? Location: ? [facility] ? Receive Date: ? 05/18/2015 ? Provider: JOSE ABBOTT DO Copy to: DAVID OSEGUERA DO ? Final Pathologic Diagnosis: SKIN OF LOBULE, LEFT POSTERIOR, SHAVE BIOPSY: - Melanocytic nevus, intradermal type. ?? Microscopic Description: Sections are of a papule with mild epidermal hyperplasia and hyperkeratosis. There is a proliferation of melanocytes within the dermis. ??The proliferation consists of nests, cords, and strands that diminish in size with descent into the dermis. ??The melanocytes are slightly enlarged but generally have round-oval nuclei and a moderate amount of cytoplasm. ??The melanocytes show land management forester maturation. ??(Dr. Black)/n Document reviewed and electronically signed by: RUFINA BLACK MD Report ??Date: 05/20/2015 15:14 By the signature above, the attending physician certifies that he/she has personally conducted a gross and/or microscopic examination of the described specimens and rendered or confirmed the above diagnosis. Specimen(s) Received: L posterior lobule Clinical History: Changing color skin lesion; clinical diagnosis code: ??239.2 Gross Description: ? Received in formalin labelled with proper patient identification (initials F, C) and left posterior lobule is a shave biopsy of pink-mar skin (1.0 x 0.5 x 0.1 cm). There is an eccentric mar-brown scaly papule that measures 0.6 x 0.5 x 0.2 cm. ??The specimen is bisected and entirely submitted in 1. Cam [place] 05/19/2015 10:25 AM End of Report [facility] 05/14/2015 18:3 6 EDT 05/18/2015 18:36 EDT us Jose M Abbott DO PATHOLOGY ORDERABLES Fi nal Result [facility] [address] [place] [address] documented in this encounter Visit Diagnoses Not on filedocumented in this encounter Care Teams Ensemble Member Relationship Specialty Start Date End Date Unknown, Provider, PCP - General 02/29/12 05/20/15 documented as of this encounter
--- OUTSIDE RECORDS SUMMARY | 2024-10-27 11:22 | XMS_ITS | Encounter Summary ---
[place] [address] Care Team Providers Care Business Center Representative Name Role Phone Marian Pierre MD Primary Care Provider [phone] Encounter Details Date Type Department Care Team (Latest Contact Info) Description 09/24/2024 7:45 AM EST Laboratory Appointment Lab at [facility] Hematology Oncology [address] [place] [phone] Obesity, unspecified class, unspecified obesity type, unspecified whether serious comorbidity present; Routine general medical examination at a health care facility; Impaired fasting glucose; Encounter for screening for cardiovascular disorders; Encounter for screening prostate specific antigen (PSA) measurement; History of ITP Social History Tobacco Use Types Packs/Day Years Used Date Smoking Tobacco: Never Smokeless Tobacco: Never Alcohol Use Standard Drinks/Week Comments Not Currently 0 (1 standard drink = 0.6 oz pur e alcohol) once a month IPV Inpatient Questions Answer Date Recorded Does Anyone Try to Keep You From Having Contact with Others or Doing Things Outside Your Home? unable to answer (comment required) 10/16/2023 Feels Threatened by Someone unable to an swer (comment required) 10/16/2023 Feels Unsafe at Home or Work/School unab le to answer (comment required) 10/16/2023 Physical Signs of Abuse Present no 10/16/2023 Sex and Gender Information Value Date Recorded Sex Assigned at Not on file Gender Identity Not on file Sexual Orientation Not on file documented as of this encounter Plan of Treatment Upcoming Encounters Date Type Department Care Team (Late Contact Info) Description 01/28/2025 3:30 PM EDT Office Visit Otolaryngology at [facility] [place] [address] Raza Glasgow MD [facility] [place] [address] documented as of this encounter Procedures Procedure Name Priority Date/Time Associated Diagnosis Comments PSA SCREEN Routine 09/24/2024 7:24 AM EST Encounter for screening prostate specific antigen (PSA) measurement Obesity, unspecified class, unspecified obesity type, unspecified whether serious comorbidity present CBC (WITH DIFF) STAT 09/24/2024 7:24 AM EST History of ITP HEMOGLOBIN A1C Routine 09/24/2024 7:24 AM EST Obesity, unspecified class, unspecified obesity type, unspecified whether serious comorbidity present Impaired fasting glucose LIPID PANEL (REFLEX DIRECT LDL) Routine 09/24/2024 7:24 AM EST Obesity, unspecified class, unspecified obesity type, unspecified whether serious comorbidity present Encounter for screening for cardiovascular disorders COMPREHENSIVE METABOLIC PANEL Routine 09/24/2024 7:24 AM EST Obesity, unspecified class, unspecified obesity type, unspecified whether serious comorbidity present Routine general medical examination at a health care facility documented in this encounter Results * (ABNORMAL) CBC (with Diff) (09/24/2024 7:24 AM EST) White Blood Cell 5.06 4.00 - 9.50 x10(3)/mc L 09/24/2024 7:54 AM EST [facility] Red Blood Cell 5.73(H) 4.58 - 5.54 x10(6)/mc L 09/24/2024 7:54 AM EST [facility] Hemoglobin 16.2 13.7 - 16.5 g/dL 09/24/2024 7:54 AM EST [facility] Hematocrit 46.3 40.5 - 48.5 % 09/24/2024 7:54 AM [facility] Mean Cell Volume 80.8(L) 82.9 - 93.1 fL 09/24/2024 7:54 AM [facility] Mean Cell Hemoglobin 28.3 27.5 - 32.1 pg 09/24/2024 7:54 AM [facility] Mean Cell Hemoglobin Concentration 35.0 32.0 - 35.7 g/dL 09/24/2024 7:54 AM [facility] Platelet 27(L) 145 - 357 x10(3)/mc L 09/24/2024 7:54 AM [facility] Mean Platelet Volume 09/24/2024 7:54 AM [facility] Comment:Not measured RDW Standard Deviation 37.5 36.0 - 45.0 fL 09/24/2024 7:54 AM [facility] RDW coefficient of variation 13.1 11.4 - 13.8 % 09/24/2024 7:54 AM [facility] NRBC% auto 0.0 % 09/24/2024 7:54 AM [facility] NRBC Absolute <0.01 <0.01 x10(3)/mc L 09/24/2024 7:54 AM [facility] Neutrophil % 43.6 % 09/24/2024 7:54 AM [facility] Neutrophil Absolute (ANC) - Automated 2.21 1.70 - 6.10 x10(3)/mc L 09/24/2024 7:54 AM [facility] Lymph % 44.7 % 09/24/2024 7:54 AM [facility] Lymph Absolute 2.26 0.90 - 3.20 x10(3)/mc L 09/24/2024 7:54 AM [facility] Monocyte % 8.1 % 09/24/2024 7:54 AM [facility] Monocyte Absolute 0.41 0.30 - 0.90 x10(3)/mc L 09/24/2024 7:54 AM [facility] Eos % 2.4 % 09/24/2024 7:54 AM [facility] Eos Absolute 0.12 0.00 - 0.40 x10(3)/mc L 09/24/2024 7:54 AM [facility] Basophil % 0.6 % 09/24/2024 7:54 AM [facility] Baso Absolute <0.04 0.00 - 0.10 x10(3)/mc L 09/24/2024 7:54 AM [facility] Immature Gran % 0.6 % 7:54 AM [facility] Immature Gran Absolute <0.04 0.00 - 0.04 x10(3)/mc L 09/24/2024 7:54 AM [facility] Blood VENOUS BLOOD SPECIMEN / Unknown Venipuncture / Unknown 09/24/2024 7:24 AM EST 09/24/2024 7:24 AM EST Norma Garrido HEADING MACHINE OPERATOR HEMATOLOGY ORDERAB LES [facility] [place] [address] * PSA Screen (09/24/2024 7:24 AM EST) PSA Screen 0.53 0.00-4.00 ng/mL ng/ml 09/24/2024 8:32 AM [facility] Comment:The reference interv al (0 - 4 ng/mL) is applicable to individuals with an intact prostate. Values within this reference interval may indicate recurrence in those who have undergone radical prostatectomy. This result was generated using a [place] Anitha immunoassay. Results obtained from other methods or manufacturers cannot be used interchangeably with this method. Blood VENOUS BLOOD SPECIMEN / Unknown Venipuncture / Unknown 09/24/2024 7:24 AM EST 09/24/2024 7:24 AM EST Marian Pierre MD CHEMISTRY ORDERABLES [facility] [address] [place] [address] * Lipid Panel (Reflex Direct LDL) (09/24/2024 7:24 AM EST) [facility] Cholesterol, Total 135 mg/dL 09/24/2024 8:32 AM [facility] Comment: Desirable: < 200 mg/dL Borderline High: 200 - 239 mg/dL High: > or = 240 mg/dL Triglyceride 200 mg/dL 09/24/2024 8:32 AM [facility] Comment: Normal: <150 mg/dL Borderline High: 150-199 mg/dL High: 200-499 mg/dL Very High: > or =500 mg/dL HDL Cholesterol 32 mg/dL 8:32 AM [facility] Comment:Males: High Risk: <4 0 mg/dL LDL Cholesterol 70 mg/dL 8:32 AM [facility] Comment: Desirable: <100 mg/dL Above Desirable: 100-129 mg/dL Borderline High: 130-159 mg/dL High: 160-189 mg/dL Very High: > or =190 mg/dL Note: LDL calculation updated to the NIH LDL formula as of 06/08/2024 Non-HDL Cholesterol 103 mg/dL 09/24/2024 8:32 AM [facility] Comment: Desirable: <130 mg/dL Above Desirable: 130-159 mg/dL Borderline High: 160-189 mg/dL High: 190-219 mg/dL Very High: > or = 220 mg/dL Blood VENOUS BLOOD SPECIMEN / Unknown Venipuncture / Unknown 09/24/2024 7:24 AM EST 09/24/2024 7:24 AM [facility] - 09/24/2024 8:32 AM EST It is important to review the results of your lipid panel with your health care provider. You can compare your lipid results to the ranges below and whether they are in the desirable range. These ranges are only meant to be used for people without known cardiac disease, history of stroke, or peripheral vascular disease (blockages in the leg arteries or diabetes). If you have one of these conditions, your desirable LDL-C (bad cholesterol) will likely be even lower. ?? ACC/AHA Guidelines (most recently Amber schaffer al. [facility] 08/08/22): * For individuals with atherosclerotic cardiovascular disease (ASCVD) or LDL >=190 mg/dL, use a high-intensity statin(40-80 mg atorvastatin or 20-40 mg rosuvastatin with goal >=50% LDL reduction) * For individuals with diabetes, age 40-75 without ASCVD, moderate-intensity statin (goal 30-49% LDL reduction); consider high intensity statin for those with increased risk. * For adults without diabetes or ASCVD, aged 40-75 with LDL 70-189 mg/dL, estimate 10 year ASCVD risk with smartphrase ??.ASCVDRISK ??or Dynamed Decisions. If 10 year risk is 7.5%-19.9% (intermediate risk), consider moderate intensity statin based on risk enhancers and patient preference. Consider coronary artery calcium test (CT)if there is concern regarding the benefit of a statin. If ten year risk is >=20%, initiate high-intensity statin. * Evaluate for secondary causes of Triglycerides >500 mg/dL or LDL >190 mg/dL. * Lifestyle modification is a critical component of ASCVD risk reduction. * If not reaching LDL goals on maximally tolerated statin, consider ezetimibe and/or a PCSK9 inhibitor: ?* Target for primary prevention: LDL<100 ?* Target for those with ASCVD or diabetes and 10-year risk >=20%: LDL<70 ?* Target for those with very high risk ASCVD: LDL<55 (Very high risk being the presence of 2 or more of: recent acute coronary syndrome, past ? myocardial infarction, ischemic stroke, symptomatic peripheral artery disease) Mraian Pierre MD [place] [address] * Hemoglobin A1c (09/24/2024 7:24 AM EST) Hemoglobin A1c 5.5 4.3 - 5.6 % 09/24/2024 10:37 AM [facility] Comment: Per ADA guidelines, without clear symptoms of hyperglycemia or a random plasma glucose >199 mg/dL, a single abnormal A1c measurement cannot be used to diagnose diabetes mellitus. The diagnosis must be confirmed by either 1) a concurrent abnormal fasting plasma glucose or impaired response to oral glucose tolerance testing, or 2) an additional abnormal A1c, impaired fasting plasma glucose, or impaired response to oral glucose tolerance testing on a different day. A1c results obtained on patients with altered red blood cell turnover may not be fundraising sale representative of glycemic control. Reference Interval: 4.3 - 5.6% 5.7 - 6.4%: Consistent with prediabetes >=6.5%: Consistent with diagnosis of diabetes mellitus Estimated Average Glucose 111 mg/dL 09/24/2024 10:37 AM [facility] Blood VENOUS BLOOD SPECIMEN / Unknown Venipuncture / Unknown 09/24/2024 7:24 AM EST 09/24/2024 7:24 AM EST Marian Pierre MD CHEMISTRY ORDERABLES [facility] [place] [address] * Comprehensive metabolic panel Non-fasting (09/24/2024 7:24 AM EST) Pathologist [facility] Glucose 107 65 - 199 mg/dL 09/24/2024 8:32 AM [facility] Comment:Glucose Concentratio n >=200 mg/dL plus symptoms is consistent with Diabetes Mellitus. Blood Urea Nitrogen 18 10 - 20 mg/dL 09/24/2024 8:32 AM [facility] Creatinine 1.22 0.80 - 1.50 mg/dL 09/24/2024 8:32 AM [facility] Sodium 140 135 - 145 mMol/L 09/24/2024 8:32 AM [facility] Potassium 4.3 3.5 - 5.0 mMol/L 09/24/2024 8:32 AM [facility] Chloride 103 98 - 107 mMol/L 09/24/2024 8:32 AM [facility] Carbon Dioxide 29 22 - 31 mMol/L 09/24/2024 8:32 AM [facility] Anion Gap 8 5 - 15 mMol/L 09/24/2024 8:32 AM [facility] Calcium 9.5 8.5 - 10.5 mg/dL 09/24/2024 8:32 AM [facility] Protein, Total 7.3 6.1 - 8.0 g/dL 09/24/2024 8:32 AM [facility] Albumin 4.5 3.2 - 5.2 g/dL 09/24/2024 8:32 AM [facility] Aspartate Aminotransferase 23 <=39 unit/L 09/24/2024 8:32 AM [facility] Alanine Aminotransferase 51 0 - 55 unit/L 09/24/2024 8:32 AM [facility] Alkaline Phosphatase 83 40 - 130 unit/L 09/24/2024 8:32 AM [facility] Bilirubin, Total 0.6 <=1.3 mg/dL 09/24/2024 8:32 AM [facility] Est Glomerular Filtration Rate - Male 71 mL/min/1. 73 m?? 09/24/2024 8:32 AM [facility] Comment: This patient's estimated GFR was calculated using the 2020 CKD-EPI equation. The estimated GFR can vary from the measured GFR by up to 30% in the absence of rapidly changing kidney function. Assessment of the estimated GFR is not appropriate when creatinine concentrations are rapidly changing. For clinical situations in which a more precise estimate of GFR is necessary, consider alternative methods of GFR estimation such as a 24-hour urine creatinine clearance. Assignment of CKD stage 1 - 5 for patients with an eGFR near the transition point between stages may be based on clinical assessment of muscle mass and symptoms in addition to eGFR. Link: eGFR Calculator [employer] Fasting Status No 09/24/2024 8:32 AM EST [facility] Blood VENOUS BLOOD SPECIMEN / Unknown Venipuncture / Unknown 09/24/2024 7:24 AM EST 09/24/2024 7:24 AM EST Marian Pierre MD CHEMISTRY ORDERABLES Performing Organization Address City/State/[facility] Co de Phone Number [facility] [place] [address] documented in this encounter Visit Diagnoses Diagnosis Obesity, unspecified class, unspecified obesity type, unspecified whether serious comorbidity present Routine general medical examination at a health care facility Impaired fasting glucose Encounter for screening for cardiovascular disorders Screening for other and unspecified cardiovascular conditions Encounter for screening prostate specific antigen (PSA) measurement History of ITP Personal history of diseases of blood and blood-forming organs documented in this encounter Care Teams Business Center Representative Relationship Specialty Start Date End Date Marian Pierre MD [address] [place] [address] PCP - General Family Medicine 08/15/22 documented as of this encounter
--- OUTSIDE RECORDS SUMMARY | 2024-10-27 11:22 | XMS_ITS | Clinical Summary ---
Author Organization [facility] Address [address] [place] [address] Care Team Providers Care Sole Stitcher Hand Name Role Phone Kurtis Kingsley DO Primary Care Provider [phone] Social History Tobacco Use Types Packs/Day Years Used Date Smoking Tobacco: Never Assessed Interpersonal Safety Answer Date Record ed Physically Hurt Never 06/06/2020 Verbally Threaten Not on file 06/06/2020 Sex and Gender Information Value Date Recorded Sex Assigned at Not on file Legal Sex Male 18:55 EST Gender Identity Not on file Sexual Orientation Not on file Plan of Treatment Health Maintenance Due Date Last Done Comments Hepatitis C Screen 1970 Hepatitis B Vaccine (1 of 3 - 19+ 3-dose series) 08/02 COVID-19 Vaccine ( season) 2024 Care Teams Sole Stitcher Hand Relationship Specialty Start Date End Date Kurtis Kingsley DO [address] [place] [address] PCP - General 05/21/15
--- OUTSIDE RECORDS SUMMARY | 2024-10-27 11:22 | XMS_ITS | Encounter Summary ---
Author Organization [facility] Address [address] [place] [address] Care Team Providers Care Mechanical Assembly Technician Name Role Phone Unknown, Provider Primary Care Provider Unava ilable Encounter Details Date Type Department Care Team (Late st Contact Info) Description 02/28/2012 Results Only [facility] Laboratory Services - [facility] [place] [address] [place], [place] [id number] Antoni Jeronimo MD [address] [facility] [address] [place] [address] Social History Tobacco Use Types Packs/Day Years [...] Date/Time Associated Diagnosis Comments SURGICAL PATHOLOGY Routine 02/28/2012 0:00 EDT documented in this encounter Results * SURGICAL PATHOLOGY (02/28/2012 0:00 EDT) Pathology Report: SURGICAL PATHOLOGY REPORT Reports generated via electronic interface contain original data; however they are lacking the format of the original report. Caution should be taken when reading/interpreting unformatted reports. Name: ? PRASANNA SHIPMAN ? Accession #: ? [id number] ? : ? 1970 (Age: 41) ??M ? Collect Date: ? 02/28/2012 ? Location: ? [facility] ? Receive Date: ? 02/29/2012 ? Provider: ANTONI JERONIMO MD Copy to: DAVID OSEGEURA DO ? Final Pathologic Diagnosis: ? Skin of shoulder, right, shave biopsies (2): 1. ?Epidermal hyperplasia with hyperkeratosis and basal hyperpigmentation. ??See comment. 2. ? Superficial perivascular inflammation with mild epidermal spongiosis. ?? Comment: ? The biopsy specimen shows areas of epidermal hyperplasia with basal hyperpigmentation and hyperkeratosis. ??These features may represent a thin seborrheic keratosis. ??There is no evidence of a melanocytic proliferation. Both portions of tissue also have a superficial dermal inflammatory infiltrate with mild spongiosis. This raises the possibility of (concomitant) eczematous dermatitis. ??(Dr. Black)/mpl ?? Microscopic Description: ? Sections consist of two shave biopsies of skin that shows similar features. Both have areas of moderate acanthosis with slight hyperkeratosis. ??There are foci of parakeratosis. ??The acanthotic epidermis shows no significant atypia. Melanin pigment is evident along the basal zone with accentuation at the tips of the rete ridges. ??Melanocytes are normal in number and morphology. ??In some areas, there is mild spongiosis with exocytosis of lymphomononuclear cells. Within the underlying dermis, there is a patchy superficial perivascular infiltrate that is of moderate density. ??The infiltrate is composed primarily of lymphomononuclear cells although occasional eosinophils are present. ??(Dr. Black)/mpl Document reviewed and electronically signed by: RUFINA BLACK MD Report ??Date: 03/01/2012 13:45 By the signature above, the attending physician certifies that he/she has personally conducted a gross and/or microscopic examination of the described specimens and rendered or confirmed the above diagnosis. Specimen(s) Received: ? Shave biopsy x2 R shoulder lesion Clinical History: ? New pigmented lesion R shoulder Gross Description: ? Received in formalin labelled Prasanna Shipman and Rt shoulder are two irregular shave biopsies of mar skin measuring 0.6 x 0.5 cm and 0.9 x 0.6 cm. The specimens are entirely submitted as (A1) larger shave, bisected, and (A2) smaller shave, bisected. ??(Gypsy Silveira)/hanh End of Report [facility] 02/28/2012 02/29/2012 9:0 6 EDT us Antoni Jeronimo MD PATHOLOGY ORDERABLES Final Resu lt [facility] [address] [place] [address] documented in this encounter Visit Diagnoses Not on filedocumented in this encounter Care Teams Mechanical Assembly Technician Relationship Specialty Start Date End Date Unknown, Provider, PCP - General 02/29/12 05/20/15 documented as of this encounter
--- OUTSIDE RECORDS SUMMARY | 2024-10-27 11:22 | XMS_ITS | Encounter Summary ---
Author Organization [facility] [place] [address] Care Team Providers Care Concrete Placement Equipment Operator Name Role Phone Marian Pierre MD Primary Care Provider [phone] Encounter Details Date Type Department Care Team (Latest Contact Info) Description 10/27/2024 8:15 AM EST Laboratory Appointment Lab at [facility] Hematology Oncology [address] [place] [phone] History of ITP Social History Tobacco Use Types Packs/Day Years Used Date Smoking Tobacco: Never Smokeless Tobacco: Never Alcohol Use Standard Drinks/Week Comments Not Currently 0 (1 standard drink = 0.6 oz pur e alcohol) once a month [facility] Inpatient Questions Answer Date Recorded Does Anyone [...] Encounters Date Type Department Care Team (Late st Contact Info) Description 01/28/2025 3:30 PM EDT Office [place] [phone] Raza Glasgow MD [facility] [place] [address] documented as of this encounter Procedures Procedure Name Priority Date/Time Associated Diagnosis Comments CBC (WITH DIFF) STAT 10/27/2024 8:04 AM EST History of ITP documented in this encounter Results * (ABNORMAL) CBC (with Diff) (10/27/2024 8:04 AM EST) White Blood Cell 5.75 4.00 - 9.50 x10(3)/mc L 10/27/2024 8:30 AM [facility] Red Blood Cell 5.64(H) 4.58 - 5.54 x10(6)/mc L 10/27/2024 8:30 AM [facility] Hemoglobin 16.1 13.7 - 16.5 g/dL 10/27/2024 8:30 AM [facility] Hematocrit 46.3 40.5 - 48.5 % 10/27/2024 8:30 AM [facility] Mean Cell Volume 82.1(L) 82.9 - 93.1 fL 10/27/2024 8:30 AM [facility] Mean Cell Hemoglobin 28.5 27.5 - 32.1 pg 10/27/2024 8:30 AM [facility] Mean Cell Hemoglobin Concentration 34.8 32.0 - 35.7 g/dL 10/27/2024 8:30 AM [facility] Platelet 31(L) 145 - 357 x10(3)/mc L 10/27/2024 8:30 AM [facility] Mean Platelet Volume 14.5(H) 7.6 - 12.9 fL 10/27/2024 8:30 AM [facility] RDW Standard Deviation 38.5 36.0 - 45.0 fL 10/27/2024 8:30 AM [facility] RDW coefficient of variation 12.9 11.4 - 13.8 % 10/27/2024 8:30 AM [facility] NRBC% auto 0.0 % 10/27/2024 8:30 AM [facility] NRBC Absolute <0.01 <0.01 x10(3)/mc L 10/27/2024 8:30 AM [facility] Neutrophil % 42.1 % 10/27/2024 8:30 AM [facility] Neutrophil Absolute (ANC) - Automated 2.42 1.70 - 6.10 x10(3)/mc L 10/27/2024 8:30 AM [facility] Lymph % 44.0 % 10/27/2024 8:30 AM [facility] Lymph Absolute 2.53 0.90 - 3.20 x10(3)/mc L 10/27/2024 8:30 AM [facility] Monocyte % 8.9 % 10/27/2024 8:30 AM [facility] Monocyte Absolute 0.51 0.30 - 0.90 x10(3)/mc L 10/27/2024 8:30 AM [facility] Eos % 3.8 % 10/27/2024 8:30 AM [facility] Eos Absolute 0.22 0.00 - 0.40 x10(3)/mc L 10/27/2024 8:30 AM [facility] Basophil % 0.9 % 10/27/2024 8:30 AM [facility] Baso Absolute 0.05 0.00 - 0.10 x10(3)/mc L 10/27/2024 8:30 AM [facility] Immature Gran % 0.3 % 8:30 AM [facility] Immature Gran Absolute <0.04 0.00 - 0.04 x10(3)/mc L 10/27/2024 8:30 AM [facility] Blood VENOUS BLOOD SPECIMEN / Unknown Venipuncture / Unknown 10/27/2024 8:04 AM EST 10/27/2024 8:18 AM EST Norma Garrido STAIN REMOVER HEMATOLOGY ORDERAB LES [facility] [place] [address] documented in this encounter Visit Diagnoses Diagnosis History of ITP Personal history of diseases of blood and blood-forming organs documented in this encounter Care Teams Concrete Placement Equipment Operator Relationship Specialty Start Date End Date Marian Pierre MD [address] [place] [id number] PCP - General Family Medicine 08/15/22 documented as of this encounter
--- OUTSIDE RECORDS SUMMARY | 2024-10-27 11:22 | XMS_ITS | Referral Summary ---
Author Organization [facility] Address [address] [place] [address] Care Team Providers Care Mortar Mixer Name Role Phone Kurtis Kingsley DO Primary Care Provider [phone] Social History Tobacco Use Types Packs/Day Years Used Date Smoking Tobacco: Never Assessed Interpersonal Safety Answer Date Record ed Physically Hurt Never 06/06/2020 Verbally Threaten Not on file 06/06/2020 Sex and Gender Information Value Date Recorded Sex Assigned at Not on file Legal Sex Male 18:55 EST Gender Identity Not on file Sexual Orientation Not on file Plan of Treatment Not on file Care Teams Mortar Mixer Relationship Specialty Start Date End Date Kurtis Kingsley, [address] [place] [address] PCP - General 05/21/15
--- OUTSIDE RECORDS SUMMARY | 2024-10-27 11:22 | XMS_ITS | Encounter Summary ---
Author Organization [facility] Address [address] [place] [address] Care Team Providers Care Separator Operator Name Role Phone Unknown, Provider Primary Care Provider Unava ilable Encounter Details Date Type Department Care Team (Latest Contact Info) Description 05/14/2015 6:26 EDT - 05/14/2015 23:59 EDT Hospital Encounter [address] [address] Unknown, ProviderMD Discharge Disposition: Home or Self Care Social History Tobacco Use Types Packs/Day Years Used Date Smoking Tobacco: Never Assessed Sex and Gender Information Value Date Recorded Sex Assigned at Not on file Legal Sex Male 18:55 EST Gender Identity Not on file Sexual Orientation Not on file documented as of this encounter Discharge Disposition Disposition Code Departure Means Destination Home or Self [facility] documented in this encounter Plan of Treatment Not on file documented as of this encounter Visit Diagnoses Not on filedocumented in this encounter Care Teams Separator Operator Relationship Specialty Start Date End Date Unknown, ProviderMD PCP - General 02/29/12 05/20/15 documented as of this encounter
--- OUTSIDE RECORDS SUMMARY | 2024-10-27 11:22 | XMS_ITS | Encounter Summary ---
Author Organization [facility] [place] [address] Care Team Providers Care Protection Consultant Name Role Phone Marian Pierre MD Primary Care Provider [phone] Encounter Details Date Type Department Care Team (Latest Contact Info) Description 01/28/2024 Travel Social History Tobacco Use Types Packs/Day Years Used Date Smoking Tobacco: Never Smokeless Tobacco: Never Alcohol Use Standard Drinks/Week Comments Not Currently 0 (1 standard drink = 0.6 oz pur e alcohol) once a month [facility] Inpatient Questions Answer Date Recorded Does Anyone [...] 3:30 PM EDT Office Visit [place] [address] Raza Glasgow MD [facility] [place] [address] documented as of this encounter Visit Diagnoses Not on filedocumented in this encounter Care Teams Protection Consultant Relationship Specialty Start Date End Date Marian Pierre MD [address] [place] [id number] PCP - General Family Medicine 08/15/22 documented as of this encounter
--- OUTSIDE RECORDS SUMMARY | 2024-10-27 11:22 | XMS_ITS | Encounter Summary ---
Author Organization [facility] Address [address] [place] [address] Care Team Providers Care Adult Basic Studies Teacher Name Role Phone Kurtis Kingsley DO Primary Care Provider [phone] Encounter Details Date Type Department Care Team (Late st Contact Info) Description 01/04/2018 Results Only [facility] [phone] Patricia Bowie, DO [address] [place] [address] Social History Tobacco Use Types Packs/Day Years [...] Date/Time Associated Diagnosis Comments SURGICAL PATHOLOGY Routine 01/04/2018 6:35 EST documented in this encounter Results * SURGICAL PATHOLOGY (01/04/2018 6:35 EST) Pathology Report: SURGICAL PATHOLOGY REPORT Reports generated via electronic interface contain original data; however they are lacking the format of the original report. Caution should be taken when reading/interpret ing unformatted reports. Name: ? PRASANNA SHPIMAN ? Accession #: ? [id number] ? : ? 1970 (Age: 47) ??M ? Collect Date: ? 01/04/2018 ? Location: ? [facility] ? Receive Date: ? 01/04/2018 ? Provider: PATRICIA BOWIE DO Copy to: KURTIS KINGSLEY DO ? Final Pathologic Diagnosis: A. ??COLON, RANDOM, ENDOSCOPIC BIOPSY: - Unremarkable colonic mucosa. - Negative for chronic, active, lymphocytic or collagenous colitis. B. ??RECTUM, RANDOM, ENDOSCOPIC BIOPSY: - Unremarkable colorectal mucosa. - Negative for chronic, active, lymphocytic or collagenous proctitis. Document reviewed and electronically signed by: JOELLE LASSITER MD Report ??Date: 01/09/2018 11:39 By the signature above, the attending physician certifies that he/she has personally conducted a gross and/or microscopic examination of the described specimens and rendered or confirmed the above diagnosis. Specimen(s) Received: A. ??Random colon bxs B. ??Random rectum bxs Clinical History: Abdominal pain Gross Description: A. ?Received in formalin labelled with proper patient identification (initials F, C) and random colon bx is an aggregate of light mar tissue fragments (3.2 x 0.5 x 0.2 cm). Submitted in toto in blocks A1-A4. B. ?Received in formalin labelled with proper patient identification (initials F, C) and random rectum bx are 10 pink-mar tissues (0.2 x 0.2 x 0.1 cm to 0.7 x 0.2 x 0.1 cm). Entirely submitted in blocks B1-B3. MARIELA Lamar ([facility]) 01/07/2018 8:07 AM End of Report [facility] 01/04/2018 6:35 EST 01/04/2018 6:35 EST us Patricia Bowie DO PATHOLOGY ORDERABLES Final Res ult [facility] [address] [place] [address] documented in this encounter Visit Diagnoses Not on filedocumented in this encounter Care Teams Adult Basic Studies Teacher Relationship Specialty Start Date End Date Kurtis Kingsley DO [address] [place] [address] PCP - General 05/21/15 documented as of this encounter
--- OUTSIDE RECORDS SUMMARY | 2024-10-27 11:22 | XMS_ITS | Encounter Summary ---
Author Organization [facility] [place] [address] Care Team Providers Care Practice Support Specialist Name Role Phone Marian Pierre MD Primary Care Provider [phone] Encounter Details Date Type Department Care Team (Latest Contact Info) Description 10/27/2024 Travel Social History Tobacco Use Types Packs/Day Years Used Date Smoking Tobacco: Never Smokeless Tobacco: Never Alcohol Use Standard Drinks/Week Comments Not Currently 0 (1 standard drink = 0.6 oz pur e alcohol) once a month [facility] Inpatient Questions Answer Date Recorded Does [...] 3:30 PM EDT Office Visit [place] [address] Raza Glasgow MD [facility] [place] [address] documented as of this encounter Visit Diagnoses Not on filedocumented in this encounter Care Teams Practice Support Specialist Relationship Specialty Start Date End Date Marian Pierre MD [address] [place] [id number] PCP - General Family Medicine 08/15/22 documented as of this encounter
--- OUTSIDE RECORDS SUMMARY | 2024-10-27 11:22 | XMS_ITS | Encounter Summary ---
[facility] [place] [address] Care Team Providers Care Semiconductor Packages Sealer Name Role Phone Marian Pierre MD Primary Care Provider [phone] Encounter Details Date Type Department Care Team (Latest Contact Info) Description 08/07/2024 Travel Social History Tobacco Use Types Packs/Day Years Used Date Smoking Tobacco: Never Smokeless Tobacco: Never Alcohol Use Standard Drinks/Week Comments Not Currently 0 (1 standard drink = 0.6 oz pur e alcohol) once a month [facility] Inpatient Questions Answer Date Recorded Does Anyone [...] 3:30 PM EDT Office [place] [address] Raza Glasgow MD [facility] [place] [address] documented as of this encounter Visit Diagnoses Not on filedocumented in this encounter Care Teams Semiconductor Packages Sealer Relationship Specialty Start Date End Date Marian Pierre MD [address] [place] [address] PCP - General Family Medicine 08/15/22 documented as of this encounter
--- OUTSIDE RECORDS SUMMARY | 2024-10-27 11:22 | XMS_ITS | Clinical Summary ---
Author Organization [facility] [place] [address] Care Team Providers Care Associate Software Engineer Name Role Phone Marian Pierre MD Primary Care Provider [phone] Allergies Active Allergy Reactions Criticality Noted Date Comments Pollen, Micronized Itching Medium 10/23/2011 Watery eyes and sneezing Medications Medication Sig Dispensed Refills Start Date End Date Status cetirizine (ZYRTEC) 10 mg Tablet PRN 03/07/2019 Active multivitamin Tablet, Chewable Take by mouth. Active acetaminophen (Tylenol) 500 mg Tablet Take 1,000 mg by mouth every 6 hours as needed for Pain. Active omeprazole (PriLOSEC) 40 mg Capsule, Delayed Release(E.C.) Take 40 mg by mouth daily. 06/15/2022 Active rosuvastatin (Crestor) 20 mg tabletIndications:Mi ld coronary artery disease Take 0.5 tablets by mouth daily. 45 tablet 3 07/04/2023 Active budesonide EC (Entocort EC) [address] - ER capsule Take 6 mg by mouth every morning. Active Psyllium Seed-Sucrose (0) Powder Take by mouth. Active budesonide (Pulmicort) 0.5 mg/2 mL Suspension for Nebulization Mix 1 respule with 240 mL (8 oz) saline in irrigation bottle. Irrigate each nostril twice daily as directed. 360 mL 3 11/08/2023 Active mupirocin (Bactroban) 2 % Ointment Squeeze approx 3/4 inch ribbon of ointment into rinse bottle. Microwave for 10-15 seconds, then add 240 mL (8 oz) saline. Use twice daily for nasal irrigation as directed. 30 g 11 11/15/2023 Active azelastine (ASTELIN) 137 mcg (0.1 %) Aerosol, SprayIndications:Chr onic pansinusitis 1 spray by Nasal route 2 times daily. Use in each nostril as directed 30 mL 12 01/28/2024 Active methocarbamoL (Robaxin) 750 mg tablet Take 2 tablets by mouth 3 times daily as needed (back pain/muscle spasm). 12 tablet 08/07/2024 Active Active Problems Problem Noted Date Diagnosed Date s/p L shoulder distal clavic le excision, arthroscopic debridement, biceps tenodesis 08/13/23 Dr. Bennett 08/13/2023 Mild coronary artery disease 04/17/2023 Overview (04/17/2023): Coronary CTA: 1. Predominantly calcified plaque in the distal left main causes less than 50% luminal narrowing. Predominantly noncalcified plaque in the proximal LAD causes less than 50% luminal narrowing. Calcified plaques in the proximal and mid RCA cause no luminal narrowing. 2. Coronary calcium score of 86, consistent with mild atherosclerotic plaque burden and 87%-ile rank based on age, race/ethnicity, and gender. 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 His symptoms suggest some high anxiety but also some angina. Will obtain myocardial perfusion PET CT to assess for hemodynamic significance of muscle bridge. Will start on rosuvastatin 20 mg/day with f/u lipid panel in 3 months. Will also start on metoprolol 25 mg/day. Chest pressure 02/28/2023 Assessment & Plan (02/28/2023 11:17 AM EDT): At this time I could not review the stress ECG which reportedly suggested some ST elevations. We discussed cardiac cath vs coronary CTA for now will go the latter since his symptoms have been chronic for years and not really even though now somewhat more noticeable. Also he is concerned about his ITP. Pure hypertriglyceridemia 02/28/2023 Assessment & Plan (02/28/2023 11:18 AM EDT): Will repeat fasting lipids, add Lp(a), hsCRP. Right buttock pain 05/25/2020 Spleen enlarged 02/22/2018 Multiple lipomas 03/20/2017 Obesity 03/20/2017 Assessment & Plan (02/28/2023 11:21 AM EDT): Have recommended [facility] by Dr Callaway. Thrombocytopenia 04/20/2016 Resolved Problems Problem Noted Date Diagnosed Date Resolved Date Parkinson's disease 03/20/2017 07/11/20 17 Encounters Date Type Department Care Team Description 10/27/2024 8:15 AM EST Laboratory Appointment Lab at [facility] Hematology Oncology [address] [place] [phone] History of ITP 10/27/2024 Travel 10/22/2024 Telephone Hematology [place] [phone] Sabrina Cobb RN 09/24/2024 7:45 AM EST Laboratory Appointment Lab at [facility] Hematology Oncology [address] [place] [phone] Obesity, unspecified class, unspecified obesity type, unspecified whether serious comorbidity present; Routine general medical examination at a health care facility; Impaired fasting glucose; Encounter for screening for cardiovascular disorders; Encounter for screening prostate specific antigen (PSA) measurement; History of ITP 09/24/2024 Travel 09/19/2024 Transcribe Orders Lab [address] [place] [address] Marian Pierre MD Encounter for screening prostate specific antigen (PSA) measurement; Obesity, unspecified class, unspecified obesity type, unspecified whether serious comorbidity present; Encounter for screening for cardiovascular disorders; Impaired fasting glucose; Routine general medical examination at a health care facility 08/07/2024 2:43 PM EDT - 08/07/2024 3:10 PM EDT [place] [address] Acute bilateral low back pain without sciatica Discharge Disposition: Home 08/07/2024 Travel from Last 3 Months Immunizations Name Administration Dates Next Due Covid-19 Bivalent (Pfizer Co mirnaty) 12yrs+ (4377-6178) 09/01/2022 Covid-19 Monovalent (Pfizer Comirnaty purple cap) 12yrs+ (2854-5742) 10/21/2021,04/14/2021,03/24/2021 Influenza Quadrivalent, Preservative Free 2011 Td Adult (Decavac, Tenivac) 09/18/2017, 8 Tdap (Adacel, Boostrix) 09/18/2017 Zoster Recombinant (ShingRix) 01/19/2023, 022 Family History Medical History Relation Comments Hyperlipidemia Brother Hypertension Brother High Blood Pressure Father Hypertension Father Depression Maternal Uncle Thyroid Disease Sister hashimotos Relation Status Comments Brother Alive Father Alive Maternal Uncle Mother Alive Sister Alive Social History Tobacco Use Types Packs/Day Years Used Date Smoking Tobacco: Never Smokeless Tobacco: Never Tobacco Cessation:Counseling Given: Not Answered Alcohol Use Standard Drinks/Week Comments Not Currently 0 (1 standard drink = 0.6 oz pur e alcohol) once a month [facility] Inpatient Questions Answer Date Recorded Does [...] on file Sexual Orientation Not on file Last Filed Vital Signs Vital Sign Reading Time Taken Comments Blood Pressure 138/84 08/07/2024 2:42 PM EDT Pulse 84 08/07/2024 2:42 PM EDT Temperature 36.3 ??C (97.3 ??F) 08/07/2024 2:42 PM ED T Respiratory Rate 14 08/07/2024 2:42 PM EDT Oxygen Saturation 98% 08/07/2024 2:42 PM EDT Inhaled Oxygen Concentration - - Weight 98 kg (216 lb) 08/07/2024 2:42 PM EDT Height 175.3 cm (5' 9) 01/28/2024 7:54 AM EDT Body Mass Index 31.9 01/28/2024 7:54 AM EDT Plan of Treatment Upcoming Encounters Date Type Department Care Team (Late st Contact Info) Description 01/28/2025 3:30 PM EDT Office Visit [place] [address] Raza Glasgow MD [facility] [place] [address] Health Maintenance Due Date Last Done Comments CT Colonography 1972 Colonoscopy 1972 Colorectal Cancer Screening 1972 FIT DNA 1972 FIT 1972 Sigmoidoscopy (10 year) with FIT yearly 1972 Sigmoidoscopy 1972 Hepatitis C Screening 1990 Hepatitis B vaccine (0-59 yr s) (1) 1991 Pneumococcal Vaccine: At-Ris k 5-64yrs (1 of 2 - PCV) 1991 Covid-19 Vaccine ( - 2023-2 5 season) 2024 09/01/2022, 10/21/2021, 04/14/2021, Additional history exists Influenza (Flu) vaccine (1 o f 1 - Influenza standard series) 07/06/2024 08/28/2012 Tetanus/Diphtheria/Pertussis Vaccines (3 - Td or Tdap) 09/18/2027 09/18/2017, 09/18/2017, 11/05/2007 Diabetes Screening (HgbA1C o r Glucose) 09/24/2027 09/24/2024, 09/24/2024, 08/14/2023, Additional history exists HIV screen Completed 11/03/2015 Zoster vaccine Completed 01/19/2023, 09/29/2022 Lipid Screening Discontinued 09/24/2024, 06/07, 03/30/2023, Additional history exists Medical Devices Implanted Type Area Environmental Engineer Device Identifier Shelf Expiration Date Model / Serial / Lot Kit Arthroscopic Fixation 3.2mm Proximan Tenedesis Self ([id number]) (Autoreq) - [id number] Implanted:Qty: 1 on 08/13/2023 by Devendra Bennett MD at [facility] IMPLANTS Left: Humerus [employer] [place] 01/03/2028 [id number] / - / [id number] Procedures Procedure Name Priority Date/Time Associated Diagnosis Comments CBC (WITH DIFF) STAT 10/27/2024 8:04 AM EST History of ITP CBC (WITH DIFF) STAT 09/24/2024 7:24 AM EST History of ITP PSA SCREEN Routine 09/24/2024 7:24 AM EST Encounter for screening prostate specific antigen (PSA) measurement Obesity, unspecified class, unspecified obesity type, unspecified whether serious comorbidity present LIPID PANEL (REFLEX DIRECT LDL) Routine 09/24/2024 7:24 AM EST Obesity, unspecified class, unspecified obesity type, unspecified whether serious comorbidity present Encounter for screening for cardiovascular disorders HEMOGLOBIN A1C Routine 09/24/2024 7:24 AM EST Obesity, unspecified class, unspecified obesity type, unspecified whether serious comorbidity present Impaired fasting glucose COMPREHENSIVE METABOLIC PANEL Routine 09/24/2024 7:24 AM EST Obesity, unspecified class, unspecified obesity type, unspecified whether serious comorbidity present Routine general medical examination at a health care facility HIV SCREEN, 4TH GENERATION ([facility]/CGP/APD/NLH) Routine 11/03/2015 4:35 PM EST Thrombocytopenia from Last 3 Months or Most Recently Relevant to Health Maintenance Results * (ABNORMAL) CBC (with Diff) (10/27/2024 8:04 AM EST) Only the most recent of2 resultswithin the time period is included. White Blood Cell 5.75 4.00 - 9.50 x10(3)/mc L 10/27/2024 8:30 AM EST [facility] Red Blood Cell 5.64(H) 4.58 - [...] - 3.20 x10(3)/mc L 10/27/2024 8:30 AM EST [facility] Monocyte % 8.9 % 10/27/2024 8:30 AM EST [facility] Monocyte Absolute 0.51 0.30 - 0.90 x10(3)/mc L 10/27/2024 8:30 AM EST [facility] Eos % 3.8 % 10/27/2024 8:30 AM [facility] Eos Absolute 0.22 0.00 - 0.40 x10(3)/mc L 10/27/2024 8:30 AM EST [facility] Basophil % 0.9 % 10/27/2024 8:30 [...] EST 10/27/2024 8:18 AM EST Norma Garrido RUG INSPECTOR HELPER HEMATOLOGY ORDERAB LES [facility] [place] [address] * PSA Screen (09/24/2024 7:24 AM EST) PSA Screen 0.53 0.00-4.00 ng/mL ng/ml 09/24/2024 8:32 AM EST [facility] Comment:The reference interv al (0 [...] Pierre MD CHEMISTRY ORDERABLES Performing Organization Address [facility]/ZIP Co de Phone Number [facility] [place] [address] * Hemoglobin A1c (09/24/2024 7:24 AM EST) Hemoglobin A1c 5.5 4.3 - 5.6 % 09/24/2024 10:37 AM EST [facility] Comment: Per ADA guidelines, without [...] red blood cell turnover may not be patient accounting representative of glycemic control. Reference Interval: 4.3 - 5.6% 5.7 - 6.4%: Consistent with prediabetes >=6.5%: Consistent with diagnosis of diabetes mellitus Estimated Average Glucose 111 mg/dL 09/24/2024 10:37 AM EST [facility] Blood VENOUS BLOOD SPECIMEN / Unknown Venipuncture / Unknown 09/24/2024 7:24 AM EST 09/24/2024 7:24 AM EST Marian Pierre MD CHEMISTRY ORDERABLES Performing Organization Address City/[facility]/ZIP Co de Phone Number [facility] [place] [address] * Lipid Panel (Reflex Direct LDL) (09/24/2024 7:24 AM EST) Cholesterol, Total 135 mg/dL 09/24/2024 8:32 AM EST [facility] Comment: Desirable: < 200 mg/dL Borderline High: 200 - 239 mg/dL High: > or = 240 mg/dL Triglyceride 200 mg/dL 09/24/2024 8:32 AM [facility] Comment: Normal: <150 mg/dL Borderline High: 150-199 mg/dL High: 200-499 mg/dL Very High: > or =500 mg/dL HDL Cholesterol 32 mg/dL 8:32 AM [facility] Comment:Males: High Risk: <4 0 mg/dL LDL Cholesterol 70 mg/dL 8:32 AM [facility] Comment: Desirable: <100 mg/dL Above Desirable: 100-129 mg/dL Borderline High: 130-159 mg/dL High: 160-189 mg/dL Very High: > or =190 mg/dL Note: LDL calculation updated to the NIH LDL formula as of 06/08/2024 Non-HDL Cholesterol 103 mg/dL 09/24/2024 8:32 AM [facility] Comment: Desirable: <130 mg/dL Above Desirable: 130-159 mg/dL Borderline High: 160-189 mg/dL High: 190-219 mg/dL Very High: > or = 220 mg/dL Blood VENOUS BLOOD SPECIMEN / Unknown Venipuncture / Unknown 09/24/2024 7:24 AM EST 09/24/2024 7:24 AM [facility] - 09/24/2024 8:32 AM EST It [...] ACC/AHA Guidelines (most recently Amber schaffer al. [facility] 08/08/22): * For individuals with [...] infarction, ischemic stroke, symptomatic peripheral artery disease) Marian Pierre MD CHEMISTRY ORDERABLES [facility] [place] [address] * Comprehensive metabolic panel Non-fasting (09/24/2024 7:24 AM EST) [facility] Glucose 107 65 - 199 mg/dL 09/24/2024 8:32 AM EST [facility] Comment:Glucose Concentratio n >=200 mg/dL plus symptoms is consistent with Diabetes Mellitus. Blood Urea Nitrogen 18 10 - 20 mg/dL 09/24/2024 8:32 AM [facility] Creatinine 1.22 0.80 - 1.50 mg/dL 09/24/2024 8:32 AM [facility] Sodium 140 135 - 145 mMol/L 09/24/2024 8:32 AM [facility] Potassium 4.3 3.5 - 5.0 mMol/L 09/24/2024 8:32 AM [facility] Chloride 103 98 - 107 mMol/L 09/24/2024 8:32 AM [facility] Carbon Dioxide 29 22 - 31 mMol/L 09/24/2024 8:32 AM [facility] Anion Gap 8 5 - 15 mMol/L 09/24/2024 8:32 AM [facility] Calcium 9.5 8.5 - 10.5 mg/dL 09/24/2024 8:32 AM [facility] Protein, Total 7.3 6.1 - 8.0 g/dL 09/24/2024 8:32 AM [facility] Albumin 4.5 3.2 - 5.2 g/dL 09/24/2024 8:32 AM [facility] Aspartate Aminotransferase 23 <=39 unit/L 09/24/2024 8:32 AM [facility] Alanine Aminotransferase 51 0 - 55 unit/L 09/24/2024 8:32 AM [facility] Alkaline Phosphatase 83 40 - 130 unit/L 09/24/2024 8:32 AM [facility] Bilirubin, Total 0.6 <=1.3 mg/dL 09/24/2024 8:32 AM [facility] Est Glomerular Filtration Rate - Male 71 mL/min/1. 73 m?? 09/24/2024 8:32 AM [facility] Comment: This patient's estimated GFR was [...] Fasting Status No 09/24/2024 8:32 AM EST [facility] Blood VENOUS BLOOD SPECIMEN / Unknown Venipuncture / Unknown 09/24/2024 7:24 AM EST 09/24/2024 7:24 AM EST Marian Pierre MD CHEMISTRY ORDERABLES Performing Organization Address City/[facility] Co de Phone Number [facility] [place] [address] * HIV Screen, 4th Generation (11/03/2015 4:35 PM EST) Pathologist [facility] HIV Ab/Ag Screen Negative Negative [facility] Comment: This 4th Generation HIV test screens for the presence of the HIV-1 p24 antigen as well as antibodies reactive against HIV-1 and HIV-2. A negative screen does not rule out an acute HIV infection. If acute HIV infection is suspected, testing should be repeated in 2 - 3 weeks or HIV nucleic acid testing performed. Blood specimen (specimen) 11/03/2015 4:35 PM EST 11/03/2015 4:49 PM EST Narrative Resulting Agency Comment Spec In Lab Maikel Rebolledo MD CHEMISTRY ORDERABLES Performing Organization Address City/State/[facility] Co de Phone Number [facility] from Last 3 Months or Most Recently Relevant to Health Maintenance Advance Directives * Attempt Cardiopulmonary Resuscitation - Inpatient (Latest Code Status on File) Date Activated Date Inactivated Comments 08/13/2023 6:05 PM 08/14/2023 1:12 PM Question Answer Comments Code Status decision made by: Patient Care Teams Associate Software Engineer Relationship Specialty Start Date End Date Marian Pierre MD [address] [place] [address] PCP - General Family Medicine 08/15/22
--- OUTSIDE RECORDS SUMMARY | 2024-10-27 11:22 | XMS_ITS | Encounter Summary ---
Author Organization [facility] [place] [address] Care Team Providers Care Mental Health Counselor Name Role Phone Marian Pierre MD Primary Care Provider [phone] Encounter Details Date Type Department Care Team (Latest Contact Info) Description 04/11/2024 Travel Social History Tobacco Use Types Packs/Day Years Used Date Smoking Tobacco: Never Smokeless Tobacco: Never Alcohol Use Standard Drinks/Week Comments Not Currently 0 (1 standard drink = 0.6 oz pur e alcohol) once a month [facility] Inpatient Questions Answer Date Recorded Does [...] 3:30 PM EDT Office [place] [address] Raza Glasgow MD [facility] [place] [address] documented as of this encounter Visit Diagnoses Not on filedocumented in this encounter Care Teams Mental Health Counselor Relationship Specialty Start Date End Date Marian Pierre MD [address] [place] [id number] PCP - General Family Medicine 08/15/22 documented as of this encounter
--- OUTSIDE RECORDS SUMMARY | 2024-10-27 11:22 | XMS_ITS | Encounter Summary ---
Author Organization [facility] [place] [address] Care Team Providers Care Professor Of Social Work Name Role Phone Marian Pierre MD Primary Care Provider [phone] Encounter Details Date Type Department Care Team (Latest Contact Info) Description 09/24/2024 Travel Social History Tobacco Use Types Packs/Day Years Used Date Smoking Tobacco: Never Smokeless Tobacco: Never Alcohol Use Standard Drinks/Week Comments Not Currently 0 (1 standard drink = 0.6 oz pur e alcohol) once a month [facility] Inpatient Questions Answer Date Recorded [...] 3:30 PM EDT Office [place] [address] Raza Glasgow MD [facility] [place] [address] documented as of this encounter Visit Diagnoses Not on filedocumented in this encounter Care Teams Professor Of Social Work Relationship Specialty Start Date End Date Marian Pierre MD [address] [place] [id number] PCP - General Family Medicine 08/15/22 documented as of this encounter
--- OUTSIDE RECORDS SUMMARY | 2024-10-27 11:22 | XMS_ITS | Encounter Summary ---
[place] [address] Care Team Providers Care Liaison Inspection Laboratory Assistant Name Role Phone Marian Pierre MD Primary Care Provider [phone] Encounter Details Date Type Department Care Team (Late st Contact Info) Description 11/26/2023 Telephone [place]ematology [place] [address] Magnolia Hirsch, RN Social History Tobacco Use Types Packs/Day Years Used Date Smoking Tobacco: Never Smokeless Tobacco: Never Alcohol Use Standard Drinks/Week Comments Not Currently 0 (1 standard drink = 0.6 oz pur e alcohol) once a month [facility] Inpatient Questions Answer Date Recorded Does [...] documented as of this encounter Miscellaneous Notes * Telephone Encounter - Magnolia Hirsch RN - 11/26/2023 11:08 AM EST Message received from social secretary: Injection/Infusion Referral Call placed to [facility] @ [phone]. Spoke w/ CHANNEL MARKETING PROGRAM MANAGER. Services to be provided for pt are: CBC ~ 12/10/23. CHANNEL MARKETING PROGRAM MANAGER confirmed they would provide services to pt. I SPOKE WITH PT, HE'S GOING TO GO IN. Pt orders faxed to [phone]. Plan: check PLT documented in this encounter Plan of Treatment Upcoming Encounters Date Type Department Care Team (Late st Contact Info) Description 01/28/2025 3:30 PM EDT Office [place] [address] Raza Glasgow MD [facility] [place] [address] documented as of this encounter Visit Diagnoses Not on filedocumented in this encounter Care Teams Liaison Inspection Laboratory Assistant Relationship Specialty Start Date End Date Marian Pierre MD [address] [place] [phone] PCP - General Family Medicine 08/15/22 documented as of this encounter
--- OUTSIDE RECORDS SUMMARY | 2024-10-27 11:22 | XMS_ITS | Encounter Summary ---
[place] [address] Care Team Providers Care Cutlet Maker Pork Name Role Phone Marian Pierre MD Primary Care Provider [phone] Encounter Details Date Type Department Care Team (Latest Contact Info) Description 04/11/2024 9:37 AM EDT - 04/11/2024 11:59 PM EDT Hospital Encounter Hematology [place] [address] History of ITP Discharge Disposition: Home Social History Tobacco Use Types Packs/Day Years Used Date Smoking Tobacco: Never Smokeless Tobacco: Never Alcohol Use Standard Drinks/Week Comments Not Currently 0 (1 standard drink = 0.6 oz pur e alcohol) once a month [facility] Inpatient Questions Answer Date Recorded Does [...] Sig Dispensed Refills Start Date End Date azelastine (ASTELIN) 137 mcg (0.1 %) Aerosol, SprayIndications:Chroni c pansinusitis 1 spray by Nasal route 2 times daily. Use in each nostril as directed 30 mL 12 01/28/2024 mupirocin (Bactroban) 2 % Ointment Squeeze approx 3/4 inch ribbon of ointment into rinse bottle. Microwave for 10-15 seconds, then add 240 mL (8 oz) saline. Use twice daily for nasal irrigation as directed. 30 g 11 11/15/2023 budesonide (Pulmicort) 0.5 mg/2 mL Suspension for Nebulization Mix 1 respule with 240 mL (8 oz) saline in irrigation bottle. Irrigate each nostril twice daily as directed. 360 mL 3 11/08/2023 Psyllium Seed-Sucrose (0) Powder Take by mouth. budesonide EC (Entocort EC) [address] - ER capsule Take 6 mg by mouth every morning. rosuvastatin (Crestor) 20 mg tabletIndications:Mild coronary artery disease Take 0.5 tablets by mouth daily. 45 tablet 3 07/04/2023 omeprazole (PriLOSEC) 40 mg Capsule, Delayed Release(E.C.) Take 40 mg by mouth daily. 06/15/2022 acetaminophen (Tylenol) 500 mg Tablet Take 1,000 mg by mouth every 6 hours as needed for Pain. multivitamin Tablet, Chewable Take by mouth. cetirizine (ZYRTEC) 10 mg Tablet PRN 03/07/2019 methocarbamoL (Robaxin) 500 mg tablet Take 1 tablet by mouth 3 times daily. 30 tablet 10/04/2023 08/07/2024 documented as of this encounter Plan of Treatment Upcoming Encounters Date Type Department Care Team (Late st Contact Info) Description 01/28/2025 3:30 PM EDT Office Visit [place] [address] Raza Glasgow MD [facility] [place] [address] documented as of this encounter Procedures Procedure Name Priority Date/Time Associated Diagnosis Comments HEMOGRAM STAT 04/11/2024 9:41 AM EDT History of ITP DIFFERENTIAL, AUTOMATED STAT 04/11/2024 9:41 AM EDT History of ITP CBC (WITH DIFF) STAT 04/11/2024 9:41 AM EDT History of ITP documented in this encounter Results * Differential, Automated (04/11/2024 9:41 AM EDT) Neutrophil % 45.6 % [facility] Neutrophil Absolute 2.34 1.70 - 6.10 x10(3)/[facility] Lymph % 43.4 % [facility] Lymphocytes Abs 2.2 0.9 - 3.2 x10(3)/[facility] Monocyte % 8.2 % [facility] Monocyte Abs 0.4 0.3 - 0.9 x10(3)/[facility] Eos % 2.0 % [facility] Eosinophils Abs 0.1 0.0 - 0.4 x10(3)/[facility] Basophil % 0.6 % [facility] Baso Absolute 0.0 0.0 - 0.1 x10(3)/[facility] Immature Gran % 0.20 % [facility] Comment: Immature granulocytes(IG's)percentage and absolute count will include metamyelocytes, myelocytes, and promyelocytes. Blood smears from CBCs yielding IG's will be scanned manually for concordance. If this scan disagrees with the automated IG or if promyelocytes are noted, a manual differential will be performed. Immature Gran Absolute 0.01 0.00 - 0.04 x10(3)/[facility] Blood 04/11/2024 9:41 AM EDT 04/11/2024 9:54 AM EDT Narrative Resulting Agency Comment Spec In Lab Norma Garrido FORM PRESS OPERATOR HEMATOLOGY ORDERAB LES [facility] [place] [address] * (ABNORMAL) Hemogram (04/11/2024 9:41 AM EDT) White Blood Cell 5.1 4.0 - 9.5 x10(3)/mc L [facility] Red Blood Cell 5.49 4.58 - 5.54 x10(6)/mc L [facility] Hemoglobin 16.2 13.7 - 16.5 g/dL [facility] Hematocrit 45.1 40.5 - 48.5 % [facility] Mean Cell Volume 82.1(L) 82.9 - 93.1 fL [facility] Mean Cell Hemoglobin 29.5 27.5 - 32.1 pg [facility] Mean Cell Hemoglobin Concentration 35.9(H) 32.0 - 35.7 g/dL [facility] Platelet 39(L) 145 - 357 x10(3)/[facility] LABORATORY RDW Standard Deviation 38.0 36.0 - 45.0 [facility] RDW coefficient of variation 12.7 11.4 - 13.8 % [facility] Mean Platelet Volume 12.9 7.6 - 12.9 [facility] NRBC% auto 0.0 % [facility] NRBC Absolute 0.000 0.000 - 0.000 x10(3)/[facility] Blood 04/11/2024 9:41 AM EDT 04/11/2024 9:54 AM EDT Narrative Resulting Agency Comment Spec In Lab Norma Garrido FORM PRESS OPERATOR HEMATOLOGY ORDERAB LES [facility] [place] [address] documented in this encounter Visit Diagnoses Diagnosis History of ITP Personal history of diseases of blood and blood-forming organs documented in this encounter Care Teams Cutlet Maker Pork Relationship Specialty Start Date End Date Marian Pierre MD [address] [place] [id number] PCP - General Family Medicine 08/15/22 documented as of this encounter
--- OUTSIDE RECORDS SUMMARY | 2024-10-27 11:22 | XMS_ITS | Encounter Summary ---
[place] [address] Care Team Providers Care Electrophysiology Scientist Name Role Phone Marian Pierre MD Primary Care Provider Encounter Details Date Type Department Care Team (Late st Contact Info) Description 09/19/2024 Transcribe Orders Lab [address] [place] [id number] Marian Pierre MD [address] [place] [phone] Encounter for screening prostate specific antigen (PSA) measurement; Obesity, unspecified class, unspecified obesity type, unspecified whether serious comorbidity present; Encounter for screening for cardiovascular disorders; Impaired fasting glucose; Routine general medical examination at a health care facility Social History Tobacco Use Types Packs/Day Years [...] 3:30 PM EDT Office [place] [address] Raza Glasgow MD [facility] [place] [address] documented as of this encounter Results * Comprehensive metabolic panel Non-fasting (09/24/2024 7:24 AM EST) Glucose 107 65 - 199 mg/dL 09/24/2024 8:32 AM [facility] Comment:Glucose Concentratio n >=200 mg/dL plus symptoms is consistent with Diabetes Mellitus. Blood Urea Nitrogen 18 10 - 20 mg/dL 09/24/2024 8:32 AM [facility] Creatinine 1.22 0.80 - 1.50 mg/dL 09/24/2024 8:32 AM [facility] Sodium 140 135 - 145 mMol/L 09/24/2024 8:32 AM [facility] Potassium 4.3 3.5 - 5.0 mMol/L 09/24/2024 8:32 AM [facility] Chloride 103 98 - 107 mMol/L 09/24/2024 8:32 AM [facility] Carbon Dioxide 29 22 - 31 mMol/L 09/24/2024 8:32 AM [facility] Anion Gap 8 5 - 15 mMol/L 09/24/2024 8:32 AM [facility] Calcium 9.5 8.5 - 10.5 mg/dL 09/24/2024 8:32 AM [facility] Protein, Total 7.3 6.1 - 8.0 g/dL 09/24/2024 8:32 AM [facility] Albumin 4.5 3.2 - 5.2 g/dL 09/24/2024 8:32 AM [facility] Aspartate Aminotransferase 23 <=39 unit/L 09/24/2024 8:32 AM [facility] Alanine Aminotransferase 51 0 - 55 unit/L 09/24/2024 8:32 AM [facility] Alkaline Phosphatase 83 40 - 130 unit/L 09/24/2024 8:32 AM [facility] Bilirubin, Total 0.6 <=1.3 mg/dL 09/24/2024 8:32 AM [facility] Est Glomerular Filtration Rate - Male 71 mL/min/1. 73 m?? 09/24/2024 8:32 AM [facility] Comment: This patient's estimated GFR [...] Foundation Fasting Status No 09/24/2024 8:32 AM [facility] Blood VENOUS BLOOD SPECIMEN / Unknown Venipuncture / Unknown 09/24/2024 7:24 AM EST 09/24/2024 7:24 AM EST Marian Pierre MD CHEMISTRY ORDERABLES [facility] [place] [address] * Hemoglobin A1c (09/24/2024 7:24 AM EST) Hemoglobin A1c 5.5 4.3 - 5.6 % 09/24/2024 10:37 AM [facility] Comment: Per ADA guidelines, without [...] red blood cell turnover may not be parts sales representative of glycemic control. Reference Interval: 4.3 - 5.6% 5.7 - 6.4%: Consistent with prediabetes >=6.5%: Consistent with diagnosis of diabetes mellitus Estimated Average Glucose 111 mg/dL 09/24/2024 10:37 AM [facility] Blood VENOUS BLOOD SPECIMEN / Unknown Venipuncture / Unknown 09/24/2024 7:24 AM EST 09/24/2024 7:24 AM EST Marian Pierre MD CHEMISTRY ORDERABLES [facility] [place] [address] * Lipid Panel (Reflex Direct LDL) (09/24/2024 7:24 AM EST) Cholesterol, Total 135 mg/dL 09/24/2024 8:32 AM [facility] Comment: Desirable: < 200 mg/dL Borderline High: 200 - 239 mg/dL High: > or = 240 mg/dL Triglyceride 200 mg/dL 09/24/2024 8:32 AM [facility] Comment: Normal: <150 mg/dL Borderline High: 150-199 mg/dL High: 200-499 mg/dL Very High: > or =500 mg/dL HDL Cholesterol 32 mg/dL 4 8:32 AM [facility] Comment:Males: High Risk: <4 0 mg/dL LDL Cholesterol 70 mg/dL 4 8:32 AM [facility] Comment: Desirable: <100 mg/dL Above Desirable: 100-129 mg/dL Borderline High: 130-159 mg/dL High: 160-189 mg/dL Very High: > or =190 mg/dL Note: LDL calculation updated to the NIH LDL formula as of 06/08/2024 Non-HDL Cholesterol 103 mg/dL 09/24/2024 8:32 AM EST [facility] Comment: Desirable: <130 mg/dL Above Desirable: 130-159 mg/dL Borderline High: 160-189 mg/dL High: 190-219 mg/dL Very High: > or = 220 mg/dL Blood VENOUS BLOOD SPECIMEN / Unknown Venipuncture / Unknown 09/24/2024 7:24 AM EST 09/24/2024 7:24 AM EST [facility] - 09/24/2024 8:32 AM [...] lower. ?? ACC/AHA Guidelines (most recently Amber et al. JACC 08/08/22): * For individuals with atherosclerotic cardiovascular [...] artery disease) Marian Pierre MD CHEMISTRY ORDERABLES Performing Organization Address [facility] de Phone Number [facility] [place] [address] * PSA Screen (09/24/2024 7:24 AM EST) PSA Screen 0.53 0.00-4.00 ng/mL ng/ml 09/24/2024 8:32 AM EST [facility] Comment:The reference interv al (0 [...] Pierre MD CHEMISTRY ORDERABLES Performing Organization Address [facility] Co de Phone Number [facility] [place] [address] documented in this encounter Visit Diagnoses Diagnosis Encounter for screening prostate specific antigen (PSA) measurement Obesity, unspecified class, unspecified obesity type, unspecified whether serious comorbidity present Encounter for screening for cardiovascular disorders Screening for other and unspecified cardiovascular conditions Impaired fasting glucose Routine general medical examination at a health care facility documented in this encounter Care Teams Electrophysiology Scientist Relationship Specialty Start Date End Date Marian Pierre MD [address] [place] [address] PCP - General Family Medicine 08/15/22 documented as of this encounter
--- OUTSIDE RECORDS SUMMARY | 2024-10-27 11:22 | XMS_ITS | Encounter Summary ---
[place] [address] Care Team Providers Care Wet Process Miller Head Assistant Name Role Phone Marian Pierre MD Primary Care Provider [phone] Reason for Visit * Reason Comments Back Pain Encounter Details Date Type Department Care Team (Late st Contact Info) Description 08/07/2024 2:43 PM EDT - 08/07/2024 3:10 PM EDT Emergency [place] [phone] Acute bilateral low back pain without sciatica Discharge Disposition: Home Social History Tobacco Use [...] (216 lb) 08/07/2024 2:42 PM EDT Height - - Body Mass Index 31.9 01/28/2024 7:54 AM EDT documented in this encounter Discharge Instructions * Discharge Instructions* Quinten Benton PA - 08/07/2024 2:50 PM EDT You were seen today for Low Back Pain. Please do the following to help your symptoms improve: 1. Follow-up with your primary care provider within 1-2 weeks for recheck of symptoms. 2. Muscle relaxant-- You have been prescribed a muscle relaxant, robaxin. This can turn your urine green. Take this as directed for moderate to severe muscle spasm. No alcohol or driving within 8 hours of taking this medication. 3.You can take [id number] Tylenol 1000 mg by mouth every 8 hours as needed (do not take more than 3000 mg in a 24-hour period). 4. You can also try an tjss-kmh-gsuyvkh patch that is used for pain called a lidocaine patch. This can be found in your local pharmacy, ask your pharmacist help you locate this. Use per package instructions, leave the patch on for 12 hours and take off for 12 hours. 5. Ice and/or heat may help. You can try both of these, they can be used every 1-2 hours for 20 minutes at a time. Use which ever helps your symptoms the most. It is important to stay moving, take several short gentle walks throughout the day 6. Perform gentle stretching exercises twice daily and speak with your primary care provider about physical therapy 7. Return to the emergency department for any worsening or changing symptoms such as fever greater than 100.4 F, increasing severe back pain, inability to walk, numbness or tingling around your anus,inability to urinate, bowel incontinence, blood in your urine, or abdominal pain/vomiting. documented in this encounter Medications at Time of Discharge Medication Sig Dispensed Refills Start Date End Date methocarbamoL (Robaxin) 750 mg tablet Take 2 tablets by mouth 3 times daily as needed (back pain/muscle spasm). 12 tablet 08/07/2024 azelastine (ASTELIN) 137 mcg (0.1 %) Aerosol, SprayIndications:Chronic pansinusitis 1 spray by Nasal route 2 [...] cetirizine (ZYRTEC) 10 mg Tablet PRN 03/07/2019 documented as of this encounter ED Notes * Quinten Benton PA - 08/07/2024 2:54 PM EDT Images from the original note were not included. ED Provider Note HPI: Prasanna Shipman is a 54 y.o. male with a history of thrombocytopenia, CAD, back pain s/p bilateral fasciotomy, 2013 with [facility] neurology Dr. Roger, L4-L5, L5-S1 decompression in 2017 who presents to the Emergency Department for evaluation of back pain. Patient reports that he was lifting when he suddenly began having severe pain in his low back. Patient reports this is sharp stabbingpain that radiates into his buttocks bilaterally. Does not go down the legs. Patient reports some tingling in his right leg but denies any loss of sensation, saddle anesthesia, loss of bowel or bladder control. Patient reports pain with movement of his right leg. Patient reports history of previousback injuries from lifting. Patient reports he took Tylenol as he is unable to take NSAIDs dueto his thrombocytopenia. Patient reports that he has a history of previous back pain and injuries. Patient is requesting muscle relaxer and states that Robaxin has helped in the past. Patient denies any other trauma or injury. History obtained by patient, chart review. ROS as per HPI Vitals: ED Triage Vitals [08/07/24 1442] BP: 138/84 Heart Rate: 84 Resp: 14 Temp: 36.3 ??C (97.3 ??F) Temp src: Temporal SpO2: 98 % O2 Device: RA O2 Flow Rate (L/min): n/a Physical Exam Vitals and nursing note reviewed. Constitutional: General: He is not in acute distress. Appearance: Normal appearance. He is not ill-appearing, toxic-appearing or diaphoretic. Comments: Uncomfortable appearing HENT: Head: Normocephalic and atraumatic. Nose: Nose normal. No congestion. Mouth/Throat: Mouth: Mucous membranes are moist. Eyes: Pupils: Pupils are equal, round, and reactive to light. Cardiovascular: Rate and Rhythm: Normal rate and regular rhythm. Pulses: Normal pulses. Pulmonary: Effort: Pulmonary effort is normal. No respiratory distress. Musculoskeletal: Cervical back: Normal, normal range of motion and neck supple. Thoracic back: Normal. Lumbar back: Spasms and tenderness present. No deformity. Decreased range of motion (Secondary to pain). Back: Comments: Sensation intact to light touch throughout bilateral lower extremities. Painful appearinggait without ataxia or foot drop. Skin: General: Skin is warm and dry. Neurological: General: No focal deficit present. Mental Status: He is alert and oriented to person, place, and time. Strength: Roots Muscles Action Right Left L2-3 Iliopsoas Hip flexion 5 5 L3-4 Quadriceps femoris Knee extension 5 5 L4-5 Tibialis anterior Ankle dorsiflexion/inversion 5 5 L5-S2 Triceps surae Ankle plantarflexion 5 5 Ddx: Pyelonephritis, Renal Colic, Ruptured Disc, Sciatica, Muscle Strain/Sprain, Compression Fracture, Cauda Equina ED Course: I have reviewed labs and imaging, images and available reports, and they are significant for: No orders to display Procedures Assessment and Plan: 54 y.o. male with acute low back pain. Patient normotensive, afebrile, nontachycardic, nonhypoxic. Exam as noted above. Patient with previous history of herniated disks from similar mechanism. Patient reports acute onset of pain while lifting today. Patient reports some tingling in his right leg but no loss of sensation when compared bilaterally. Strength is intact bilaterally. No red flag symptoms. No urinary symptoms. Patient has point tenderness to the low T spine/high L-spine with paraspinal muscle spasms noted. Patient is unable to take NSAIDs as he is thrombocytopenic at baseline. Has tried Tylenol without improvement. Will try lidocaine patch, muscle relaxer. Discussed steroids and the patient states that this is never helped him in the past and I think it is reasonable to defer at this time as there is low evidence that these are beneficial. Discussed symptomatic managementfollow-up with neurosurgery/PCP as needed for new or worsening symptoms. Patient states understanding agreement with this plan discussed return precautions for red flag symptoms. Did this case involve critical care? No The visit findings, diagnosis, and care plan were discussed with the patient. The diagnosis and care plans discussions were outlined in the discharge instructions. The patient expressed understanding of the details of the visit, the return precautions and that he should returnto the ER at any time for worsening symptoms, new symptoms, or other concerns. he agrees with the follow- up plan. Quinten Benton PA 08/07/24 1501 documented in this encounter Plan of Treatment Upcoming Encounters Date Type Department Care Team (Late st Contact Info) Description 01/28/2025 3:30 PM EDT Office [place] [address] Raza Glasgow MD [facility] [place] [address] documented as of this encounter Visit Diagnoses Diagnosis Acute bilateral low back pain without sciatica documented in this encounter Administered Medications Inactive Administered Medications - up to 3 most recent administrations Medication Order MAR Action Action Date Dose Rate Site lidocaine (Lidoderm) 5% patch 1 patch 1 patch, Transdermal, Administer over 12 Hours, ONCE, 1 dose, On Sharon 08/07/24 at 1500, Apply patch(es) for 12 hours, and then remove for 12 hours., STAT Patch Applied 08/07/2024 3:07 PM EDT 1 patch 20-Other (document in comment section) methocarbamoL (Robaxin) tablet 1,500 mg 1,500 mg, Oral, ONCE, 1 dose, On Sharon 08/07/24 at 1500, STAT Given 08/07/2024 3:06 PM EDT 1,500 mg documented in this encounter Active and Recently Administered Medications Times are shown in EDT. Scheduled Medication Order 08/05/2024 08/06/2024 08/07/2024 lidocaine (Lidoderm) 5% patch 1 patch 1 patch, Transdermal, Administer over 12 Hours, ONCE, 1 dose, On Sharon 08/07/24 at 1500, Apply patch(es) for 12 hours, and then remove for 12 hours., STAT 1507 (Patch Applied - Provider: Fady Fang NRP - Comment: lower back)1510 (Due: Patch Removed - Provider: Automatic Discharge Provider - Comment: Time automatically adjusted from order being discontinued) methocarbamoL (Robaxin) tablet 1,500 mg (COMPLETED) 1,500 mg, Oral, ONCE, 1 dose, On Sharon 08/07/24 at 1500, STAT 1506 (Given - Provid er: Fady Fang NRP) documented in this encounter Care Teams Wet Process Miller Head Assistant Relationship Specialty Start Date End Date Marian Pierre MD [address] [place] [id number] PCP - General Family Medicine 08/15/22 documented as of this encounter
--- OUTSIDE RECORDS SUMMARY | 2024-10-27 11:22 | XMS_ITS | Encounter Summary ---
Author Organization [facility] Address [address] [place] [address] Care Team Providers Care Interactive Account Manager Name Role Phone Kurtis Kingsley DO Primary Care Provider [phone] Encounter Details Date Type Department Care Team (Late st Contact Info) Description 12/31/2020 Lab Requisition [facility] Pathology & Laboratory Medicine - [address] [id number] Outr Resulting Lab, Provider Social History Tobacco [...] Comments ZZCOVID-19 TEST [facility] PCR Today 12/30/2020 14:00 EST COVID-19 TESTING Routine 12/30/2020 14:0 0 EST documented in this encounter Results * COVID-19 TEST [facility] PCR (12/30/2020 14:00 EST) Swab ENTIRE NASOPHARYNX / Unknown 12/30/2020 14:00 EST 12/31/2020 15:45 EST us Provider Outr Resulting Lab MICROBIOLOGY - GENER AL ORDERABLES Final Result [facility] [address] [place] [address] * (ABNORMAL) COVID-19 TESTING (12/30/2020 14:00 EST) COVID-19 rt-PCR Result Positive( AA) Negative 01/01/2021 14:08 EST [facility] Comment: This test has not [...] developed and its performance characteristics determined by [facility]. It has not been cleared or approved by the US Food and Drug Administration. FDA does not require this test to go through premarket FDA review. This test is used for clinical purposes. It should not be regarded as investigational or for research. This laboratory is certified under the Clinical Laboratory Improvement Amendments (CLIA) as qualified to perform high complexity clinical laboratory testing. This test is based on the [facility] [place] COVID-19 Emergency Use Authorization (EUA) assay, with minor modification as defined by the FDA Performed on the [employer] 7 Pro RT-PCR System. Performing Lab [facility] Lab 01/01/2021 14:08 EST [facility] Swab 12/30/2020 14:0 0 EST 12/31/2020 15:45 EST us Provider Outr Resulting Lab MICROBIOLOGY - GENER AL ORDERABLES Final Result [facility] [address] [place] [address] documented in this encounter Visit Diagnoses Not on filedocumented in this encounter Additional Health Concerns Infection Onset Date Last Indicated Resolved Time COVID-19 12/30/2020 12/30/2020 01/29/2021 22:1 5 EDT documented as of this encounter Care Teams Interactive Account Manager Relationship Specialty Start Date End Date Kurtis Kingsley DO [address] [place] [address] PCP - General 05/21/15 documented as of this encounter
--- OUTSIDE RECORDS SUMMARY | 2024-10-27 11:22 | XMS_ITS | Encounter Summary ---
[place] [address] Care Team Providers Care Citizen Participation Specialist Name Role Phone Marian Pierre MD Primary Care Provider [phone] Encounter Details Date Type Department Care Team (Latest Contact Info) Description 01/28/2024 8:41 AM EDT - 01/28/2024 11:59 PM EDT Hospital Encounter [place]ology [place] [address] Discharge Disposition: Home Social History Tobacco Use Types Packs/Day Years Used Date Smoking Tobacco: Never Smokeless Tobacco: Never Alcohol Use Standard Drinks/Week Comments Not Currently 0 (1 standard drink = 0.6 oz pur e alcohol) once a month [facility] Inpatient Questions Answer Date Recorded Does [...] 3:30 PM EDT Office [place] [address] Raza Glasgow MD [facility] [place] [address] documented as of this encounter Visit Diagnoses Not on filedocumented in this encounter Care Teams Citizen Participation Specialist Relationship Specialty Start Date End Date Marian Pierre MD [address] [place] [id number] PCP - General Family Medicine 08/15/22 documented as of this encounter
--- OUTSIDE RECORDS SUMMARY | 2024-10-27 11:22 | XMS_ITS | Encounter Summary ---
Author Organization [facility] Address [address] [place] [address] Care Team Providers Care Cardiac Exercise Physiologist Name Role Phone Kurtis Kingsley DO Primary Care Provider [phone] Encounter Details Date Type Department Care Team (Latest Contact Info) Description 01/04/2018 13:41 EST - 01/04/2018 23:59 EST Hospital Encounter [address] [address] Unknown, Provider, MD Discharge Disposition: Home or Self Care Social History Tobacco Use Types Packs/Day Years Used Date Smoking Tobacco: Never Assessed Sex and Gender Information Value Date Recorded Sex Assigned at Not on file Legal Sex Male 18:55 EST Gender Identity Not on file Sexual Orientation Not on file documented as of this encounter Discharge Disposition Disposition Code Departure Means Destination Home or Self Senior Living documented in this encounter Plan of Treatment Not on file documented as of this encounter Visit Diagnoses Not on filedocumented in this encounter Care Teams Cardiac Exercise Physiologist Relationship Specialty Start Date End Date Kurtis Kingsley DO [address] [place] [address] PCP - General 05/21/15 documented as of this encounter
--- OUTSIDE RECORDS SUMMARY | 2024-10-27 11:22 | XMS_ITS | Encounter Summary ---
Author Organization [facility] [place] [address] Care Team Providers Care Learning Center Instructor Name Role Phone Marian Pierre MD Primary Care Provider [phone] Encounter Details Date Type Department Care Team (Latest Contact Info) Description 01/28/2024 8:35 AM EDT Laboratory Appointment Lab [address] [place] [address] History of ITP Social History Tobacco Use Types Packs/Day Years Used Date Smoking Tobacco: Never Smokeless Tobacco: Never Alcohol Use Standard Drinks/Week Comments Not Currently 0 (1 standard drink = 0.6 oz pur e alcohol) once a month [facility] Inpatient Questions Answer Date Recorded Does Anyone [...] 3:30 PM EDT Office [place] [address] Raza Glasgow MD [facility] [place] [address] documented as of this encounter Procedures Procedure Name Priority Date/Time Associated Diagnosis Comments SCAN, PERIPHERAL BLOOD STAT 01/28/2024 8:47 AM EDT HEMOGRAM STAT 01/28/2024 8:47 AM EDT History of ITP DIFFERENTIAL, AUTOMATED STAT 01/28/2024 8:47 AM EDT History of ITP CBC (WITH DIFF) STAT 01/28/2024 8:47 AM EDT History of ITP documented in this encounter Results * Scan, Peripheral Blood (01/28/2024 8:47 AM EDT) [facility] Plat estimate Decreased [facility] RBC Morphology Abnormal [facility] Microcyte 1-5 /HPF [facility] Blood 01/28/2024 8:47 AM EDT 01/28/2024 8:59 AM EDT Narrative Resulting Agency Comment Spec In Lab Norma Garrido [facility] ORDERAB LES [facility] [place] [address] * Differential, Automated (01/28/2024 8:47 AM EDT) [facility] Neutrophil % 44.9 % [facility] Neutrophil Absolute 2.38 1.70 - 6.10 x10(3)/[facility] Lymph % 43.3 % [facility] Lymphocytes Abs 2.3 0.9 - 3.2 x10(3)/[facility] Monocyte % 8.7 % [facility] Monocyte Abs 0.5 0.3 - 0.9 x10(3)/[facility] Eos % 2.3 % [facility] Eosinophils Abs 0.1 0.0 - 0.4 x10(3)/[facility] Basophil % 0.6 % [facility] Baso Absolute 0.0 0.0 - 0.1 x10(3)/[facility] Immature Gran % 0.20 % [facility] Comment: Immature granulocytes(IG's)percentage and absolute count will include metamyelocytes, myelocytes, and promyelocytes. Blood smears from CBCs yielding IG's will be scanned manually for concordance. If this scan disagrees with the automated IG or if promyelocytes are noted, a manual differential will be performed. Immature Gran Absolute 0.01 0.00 - 0.04 x10(3)/[facility] Blood 01/28/2024 8:47 AM EDT 01/28/2024 8:59 AM EDT Narrative Resulting Agency Comment Spec In Lab Nroma Garrido [facility] ORDERAB LES [facility] [place] [address] * (ABNORMAL) Hemogram (01/28/2024 8:47 AM EDT) White Blood Cell 5.3 4.0 - 9.5 x10(3)/ L [facility] Red Blood Cell 5.57(H) 4.58 - 5.54 x10(6)/mc L [facility] Hemoglobin 16.1 13.7 - 16.5 g/dL [facility] Hematocrit 45.5 40.5 - 48.5 % [facility] Mean Cell Volume 81.7(L) 82.9 - 93.1 fL [facility] Mean Cell Hemoglobin 28.9 27.5 - 32.1 pg [facility] Mean Cell Hemoglobin Concentration 35.4 32.0 - 35.7 g/dL [facility] Platelet 34(L) 145 - 357 x10(3)/ L [facility] RDW Standard Deviation 38.3 36.0 - 45.0 fL [facility] RDW coefficient of variation 12.9 11.4 - 13.8 % [facility] Mean Platelet Volume Not Measured 7.6 - 12.9 fL [facility] NRBC% auto 0.0 % [facility] NRBC Absolute 0.000 0.000 - 0.000 x10(3)/mc L [facility] Blood 01/28/2024 8:47 AM EDT 01/28/2024 8:59 AM EDT Narrative Resulting Agency Comment Spec In Lab Norma Garrido [employer]AT[facility] ORDERAB LES [facility] [place] [address] documented in this encounter Visit Diagnoses Diagnosis History of ITP Personal history of diseases of blood and blood-forming organs documented in this encounter Care Teams Learning Center Instructor Relationship Specialty Start Date End Date Marian Pierre MD [address] [place] [address] PCP - General Family Medicine 08/15/22 documented as of this encounter
--- OUTSIDE RECORDS SUMMARY | 2024-10-27 11:22 | XMS_ITS | Encounter Summary ---
Author Organization [facility] Address [address] [place] [address] Care Team Providers Care Horticultural Specialty Grower Name Role Phone Kurtis Kingsley Primary Care Provider [phone] Encounter Details Date Type Department Care Team (Late st Contact Info) Description 02/27/[address] [facility] Pathology & Laboratory Medicine - [facility] [address], [place] [id number] Outr Resulting Lab, Provider Social History Tobacco [...] Name Priority Date/Time Associated Diagnosis Comments PSA TOTAL, DIAGNOSTIC Routine 02/27/2022 10:53 EDT documented in this encounter Results * PSA TOTAL, DIAGNOSTIC (02/27/2022 10:53 EDT) PSA 0.6 <=2.5 ng/mL 02/27/2022 21:52 EDT [facility] Blood VENOUS BLOOD / Unknown 02/27/2022 10:53 EDT 02/27/2022 20:57 EDT Narrative [facility] - 02/27/2022 21:52 EDT NOTE: Serum PSA concentration should not be interpreted as absolute evidence for the presence or absence of malignant disease. Assayed on Siemens ADVIA Centaur XPT using chemiluminescent technology.??Values obtained by using different assay methods cannot be used interchangeably. us Provider Outr Resulting Lab CHEMISTRY & BLOOD GA S ORDERABLES Final Result [facility] [address] [place] [address] documented in this encounter Visit Diagnoses Not on filedocumented in this encounter Care Teams Horticultural Specialty Grower Relationship Specialty Start Date End Date Kurtis Kingsley DO [address] [place], [place] [address] PCP - General 05/21/15 documented as of this encounter
--- OUTSIDE RECORDS SUMMARY | 2024-10-27 11:22 | XMS_ITS | Encounter Summary ---
Author Organization Formerly [facility] Address [facility] [place] [address] Care Team Providers Care Category Manager Name Role Phone Marian Pierre MD Primary Care Provider [phone] Reason for Visit * Reason Comments Follow-up Left side is more cl ear than the right, still can't smell very well Encounter Details Date Type Department Care Team (Late st Contact Info) Description 01/28/2024 8:00 AM EDT Office [place] [address] Raza Glasgow MD [facility] [place] [address] Chronic pansinusitis; Thrombocytopenia; History of sinus surgery; Non-seasonal allergic rhinitis due to other allergic trigger Social History Tobacco Use Types Packs/Day Years Used Date Smoking Tobacco: Never Smokeless Tobacco: Never Alcohol Use Standard Drinks/Week Comments Not Currently 0 (1 standard drink = 0.6 oz pur e alcohol) once a month ON LICENSE OF [facility] Inpatient Questions Answer Date Recorded [...] - Inhaled Oxygen Concentration - - Weight 98.4 kg (217 lb) 01/28/2024 7:54 AM EDT Height 175.3 cm (5' 9) 01/28/2024 7:54 AM EDT Body Mass Index 32.05 01/28/2024 7:54 AM EDT documented in this encounter Patient Instructions * Patient Instructions* Raza Glasgow MD - 01/28/2024 8:00 AM EDT Instructions for Proper Delivery of Topical Nasal Steroid Medications If you use saline irrigations, perform the saline irrigation PRIOR to using the nasal steroid spray Follow your precise dosing instructions on the bottle Bend forward from the waist, head tilted slightly upward so the spray will coat your turbinate tissue and not go down the back of your throat. With the bottle in your right hand, place the applicator tip in the left nostril and point towards the inner corner of the left eye before spraying. Activate the pump by quickly and firmly pressing down on the white collar, while supporting the base of the bottle with your thumb. Gently sniff and breathe inward while leaving your head in a downward position. Now place the unit in your left hand and spray your right nostril using the same technique as above(pointing the tip towards the inner corner of the right eye). Maintain this position for approximately 10 seconds, gently sniffing and breathing the spray back, dabbing any spray that may drip. This technique is important to delivery the spray to the turbinates, not to your throat. It also helps prevent irritation of the nasal septum and tissue breakdown, which is the number one cause of nasal bleeding associated with steroid spray use. You will NOT notice an immediate improvement with topical steroid medications. Instead, sprays mustbe used continuously for several weeks (we recommend a trial of at least 4-6 weeks) before making adecision to continue or not. Nasal Irrigations What is nasal irrigation and why do I need to do it? Although it may sound intimidating or uncomfortable, nasal irrigation really is as simple as running gentle saline solution through your nasal passages and sinuses. Most people find that in a short time they are comfortable irrigating their nose. The nasal and sinus cavities are normally able to clear mucus on their own through mucociliary transport. Sometimes swelling of the nose from allergy, irritation or infection can prevent this self-cleaning. In these cases, irrigations (nasal flushing or washing) are used until the lining of the nose and sinuses can recover and revert to normal. Nasalirrigation cleans the passages of your nose where particles get trapped, helping to wash them away. Nasal irrigation will also help stimulate cilia movement and healthy secretions while keeping the mucosa moist. How do I make the solution? Pre-made sale packets such as those sold by [employer] can be purchased at most drug stores, along with squeeze bottles. Packets can be mixed with sterile water from the pharmacy, distilled water or tapwater that has been boiled for 15 minutes. Alternatively, one can boil tap water for several minutes and place in a clean one liter (1 quart) container. We recommend using a container with a wide mouth to facilitate washing, and very importantly, thorough drying of the container. Add 2-3 teaspoons of table salt and 1 teaspoon of baking soda per quart. Let cool to a temperature that is luke warm, but not hot before use. How do I irrigate my nose? Irrigate each nostril with the contents of the irrigation bottle (240 mL = 8 oz.) divided equally between nostrils. Perform the irrigations while leaning forward over a sink so that the solution may drip or be spit out. Place the tip of the device at the opening of the nostril and gently irrigate the solution into the nose. We recommend using either a [employer] squeeze bottle or a combination bulb-syring irrigation device that looks like a turkey baster. This can be taken apart for thorough periodic cleaning. Helpful tips: Breath through your mouth or hold your breath while flushing. Stop irrigating if you have to sneeze or cough. Do not speak or swallow while flushing. This could change the pressure in your ears/nose and cause infectious material to be drawn into the middle ear/sinuses. At first you may have an aversion to doing the irrigations, much like touching the eye when first wearing contact lenses. After a while this will subside and you will be able to tolerate irrigation quite easily. How do I clean the equipment? You should clean the irrigation device and solution container daily with soap and water so bacteriaare not reintroduced into the nasal cavity with each irrigation. Using two containers is optimal asone can be cleaned while the other is in use. Sterilization may be performed once a week with a weak solution of Betadine (available in pharmacies) or a diluted solution of bleach and water (1 part bleach to 100 parts water). Rinse thoroughly. Alternatively, you may choose to place the device into the microwave for 30 seconds to 1 minute to disinfect it. The bottle cannot be placed into boiling water as this will destroy the plastic material. Allow the device to completely air dry before using again. Additional Information on Topical Steroid Medications Evidence supports that high volume irrigations provide the most reliable delivery of medications tothe paranasal sinuses.1-3 Surgery improves the distribution of irrigation into the paranasal sinuses.4-7 Additionally, high- volume irrigations have improved distribution to the nasal cavity along theorbit and olfactory cleft when compared with nasal sprays.1 High-volume irrigations overcome unfavorable nasal anatomy such as septal deviation, narrowed nasal valves, and inferior turbinate hypertrophy to penetrate the nasal cavity and paranasal sinuses.2 Such anatomic variants have been shown to decrease the distribution of nasal sprays to the nasal cavity/sinuses. The benefits of saline irrigations include improving mucociliary clearance, reducing mucosal inflammation, removing crusted mucus and allergens.8-9 A survey of members of the [place] Academy of Otolaryngology-Head and Neck Surgery found that 100% of rhinologists and 93.2% of otolaryngologists recommended sinus saline irrigations to patients following endoscopic sinus surgery.10 The addition of medications, such as steroids or antibiotics, to these saline rinses further enhances the efficacy ofthis treatment, reduces the complexity of the medication regimen, and allows for personalized treatment at the site of the sinus inflammation without the risk of systemic side effects observed with oral medications. In past years, we have participated in many discussions on the different topical steroids used in large volume nasal irrigations. These discussions related to the systemic absorption (absorption to the rest of the body) of the various steroids. Mometasone is the ideal option for topical irrigations given the low bioavailability with a systemic absorption is < 0.1%.11 Additionally, mometasone as a molecule has the highest potency of the topical steroids as measured by binding affinity to the glucocorticoid receptor.12 Budesonide is a good alternative for nasal irrigations. Although budesonide absorption to the rest of the body is approximately 34%, the vast majority (greater than 90%) undergoes first-pass metabolism by the liver. Additionally, studies have demonstrated that much of the sinus irrigation goes into the sink. In fact,when steroids are administered via high volume sinus irrigation, < 5% of the total dose remains in the sinuses following irrigation.13 Therefore, the amount of steroid exposure is low resulting infewer side effects than oral administration. A fellow manager data warehousing and colleague, Dr. Francisco Vázquez, studied large volume nasal irrigations withmometasone at a total daily dose of 2 mg over 12 months and showed no treatment-related medication adverse reactions.14 Steroid-induced ocular hypertension is a potential concern with intranasal steroid administration. Several studies have investigated the effects of steroid nasal irrigations on intraocular pressure (IOP). In one study, IOP was evaluated in 18 patients who had been on budesonide irrigations for an average of 6.9 months (range 1-22 months).15 One patient had elevated IOP in one eye, but had a normal eye exam. In another study, IOP was studies in 46 patients using budesonide irrigations for a meanduration of 22 months (range 6-66 months).16 IOP was within normal limits in all patients and remained normal even at up to 66 months of use. The use of steroid irrigations appears to have a minimal e ffect on IOP,17-18 however a collaborative approach may be prudent with the incorporation of your eye doctor. In a study examining adrenal function in patients on long-term budesonide irrigations, 11 patients (23%) had abnormally low stimulated cortisol levels, however none were symptomatic.16 In the group of patients with low cortisol levels, concomitant use of a steroid nasal spray, inhaled (pulmonary) steroid, and steroid irrigation was significantly higher. Concurrent use of only one other steroid (nasal spray or inhaler) was not associated with low stimulated cortisol levels in patients receiving steroid irrigations.16 In another study, 35 patients using budesonide nasal irrigations for a minimum of 12 months (mean duration 38.2 months) were tested for cqhvpizgkihj-oblhwkuap-sxumjgt (HPA) axis suppression.19 There were no detected cases of HPA axis suppression. Eighteen patients were also taking inhaled corticosteroids, but none of the patients were concurrently prescribed intranasal steroid sprays. Thus, caution should be taken in patients using a steroid nasal spray, a steroid nasal irrigation, and an inhaled steroid. Discontinuation of the steroid nasal spray is generally advised, or monitoring of cortisol levels may be warranted in these patients. Kurtis IVEY, Gurpreet CHINCHILLA, Ankita Srinivasan, Yessi PH, Zunilda CHINCHILLA. Distribution of topical agents to the paranasal sinuses: An evidence-based review with recommendations. International Forum of Allergy & Rhinology. 2013;3(9):691-703. Marv ORNELAS, Ankita Srinivasan. Delivery of topical therapies. In Rhinosinusitis with Nasal Polyposis. [employer]. 2016;79:114-120. Jeremi MA, Hayley SS, Catherine HM, Kwame ME, Nickolas JE. Nasal sailne for chronic sinonasal symptoms:A randomized controlled trial. Archives of Otolaryngology- Head & Neck Surgery. 2007;11:2596-7428. Gurpreet CHINCHILLA, Lei SOLANO, Tru SK, Zunilda CHINCHILLA. Effects of endoscopic sinus surgery on delivery device on cadaver sinus irrigation. Otolaryngology-Head and Neck Surgery. 2008;139(1):137-142. Maliha O, Brian A, Nielsen A, Iraida EH, Marbella EC, Henri B. Sinus irrigation penetration after balloon sinuplasty vs functional endoscopic sinus surgery in a cadaveric model. International Forum of Allergy & Rhinology. 2019;9(9):953-957. Supa JW, Carlos Enrique M, Edmundo E, Nasra B, Moraima M, Mahesh R, Gurpreet CHINCHILLA. Effect of sphenoid surgery on nasal irrigation delivery. International Forum of Allergy & Rhinology. 2019;9(9):971-976. Drew D, Zhang EK, Esperanza E, Vidal B, Anna Marie B, Fahad FAVIAN, Royce PJ. Effect of head position and surgical dissection on sinus irrigant penetration in cadavers. The Laryngoscope. 2010;120(12):0326-5142. Maribeth MCLEOD, Gurpreet CHINCHILLA. Nasal saline irrigation therapeutic or homeopathic. [place] Journal of Otorhinolaryngology. 2015;81(5):457-458. Kings LJ, Van JM. Topical drug therapies for chronic rhinosinusitis. Otolaryngologic Clinics [facility]. 2017;50(3):533-543. Danelle SULTANA, Yovany Yeager, Ariel Pedroza. Perioperative care in functional endoscopic sinus surgery: A survey study. International Forum of Allergy & Rhinology. 2012;2(1):27-33. Sofie Pedroza, Shae Packer. Local and systemic safety of intranasal corticosteroids. Journal of Investigational Allergology and Clinical Immunology. 2012;22(1):1. Kirby Pedroza. Intranasal corticosteroids for allergic rhinitis: How do different agents compare? Journal of Allergy and Clinical Immunology. 1999;104(4):144-149. Ankita Srinivasan. High-volume sinonasal budesonide irrigations for chronic rhinosinusitis: An update on thesafety and effectiveness. Adv Pharmacoepidemiol Drug Saf. 2014;3(148):2167-105. Gurpreet CHINCHILLA, Spring K, Kam LH, Donald HANSON, Lea R. Corticosteroid nasal irrigations are more effective than simple sprays in a randomized double-blinded placebo-controlled trial for chronic rhinosinusitis after sinus surgery. International Forum of Allergy & Rhinology. 2018;8(4):461-470. Abilio KA, Rj DF, Milton J, Latisha F, Alessandro CA. Effect of intranasal budesonide irrigations on intraocular pressure. International Forum of Allergy & Rhinology. 2013;3(9):704-707. Kanika E, Guillermo J, Luis R, Elinor L, Dickson PH. Safety analysis of long-term budesonide nasal irrigations in patients with chronic rhinosinusitis post endoscopic sinus surgery. InternationalForum of Allergy & Rhinology. 2016;6(6):568-572. Delfino Y, Therese DA. Is topical high-volume budesonide sinus irrigation safe: The Laryngoscope. 2018;128(4):781-782. Supa RIVERA, Gurpreet CHINCHILLA. Topical corticosteroid irrigations in chronic rhinosinusitis. International Forum of Allergy & Rhinology. 2019;9(S1):9-15. Marv ORNELAS, Julio Owens, Jose B, Ankita Srinivasan. Safety of long-term high-volume sinonasal budesonide irrigations for chronic rhinosinusitis. International Forum of Allergy & Rhinology. 2016;6(3):228-232. documented in this encounter Progress Notes * Leora Lackey PA - 01/28/2024 8:00 AM EDT Prasanna Shipman with PMHx of ITP, CRS who presents s/p balloon dilation of frontal and maxillary sinuses on 10/16/23. He was last seen in clinic 10/22/23 and advised to use mupirocin and budesonide nasal saline rinses. He has been completing these once a day. Today he presents for 3 month follow up. He reports R>L nasal congestion, hyposmia. He is followed by Dr. Sellers and audiology at [facility]. He reports stable anosmia. He reports frontal pressure. He denies fevers, chills, He denies mucopurulent rhinorrhea, no epistaxis. He denies nasalobstruction. He additionally takes Zyrtec daily. He had COVID end of November, in which worsened hishyposmia then improved to his baseline. He did have COVID twice before. ROS: No other symptoms experienced in constitutional, respiratory or ENT systems. Physical Exam: In general, the patient is well nourished and well developed in no apparent distress. Extraocular movements intact. Normal facial tone and symmetry. Anterior rhinoscopy demonstrated limited visualization and inability to see the sinus cavities adequately. Based upon the above history and physical exam, it was elected to perform endoscopy. 01/28/2024 8:02 AM Q-SCT During the past 2 weeks, how severe was your nasal obstruction? Mild During the past 2 weeks, how severe was your nasal discharge? Minimal How much of the time did your sinus symptoms interfere with getting much done at work or home over the past 2 weeks? Not at all Have you had to take a recent treatment of oral steroid or antibiotics in the past 2 weeks for yoursinuses? No Sct Scoring 3 (controlled) Procedure: Nasal Endoscopy (CPT 42030) Indication: Symptoms suggestive of chronic rhinosinusitis. Due to limited visualization with anterior rhinoscopy that does not provide sufficient clinical information to establish a diagnosis, sinonasal endoscopy was performed using topical anesthetic and vasoconstrictors as needed. This is medically necessary to evaluate chronic sinonasal symptoms given suspicion of: A repeat nasal endoscopy is medically necessary when the symptoms do not improve or worsen following medical/surgical treatment Surgeon: Raza Glasgow MD Informed Consent: The procedure, risks and benefits were discussed with the patient and consent obtained to proceed. Procedure: Topical spray consisting of 1% oxymetazoline and 4% lidocaine was sprayed into the nasalcavity bilaterally. A rigid endoscope was then used to visualize each nasal cavity, utilizing inferior, central and superior passes. Patient tolerated well. Findings: Septum: Straight Interior nasal cavity: No significant edema, purulence or obstructive lesions bilaterally Inferior turbinates: Normal bilaterally Middle turbinates: Normal bilaterally The middle meatus, superior meatus, and sphenoethmoidal recess are without edema, polyps or purulence bilaterally. Frontal sinuses patent s/p balloon dilation 3 months ago. No mucopurulent rhinorrhea. Olfactory cleft: Patent bilaterally Visualized portion of nasopharynx unremarkable Assessment and Plan: Encounter Diagnoses Name Primary? Chronic pansinusitis Thrombocytopenia History of sinus surgery Non-seasonal allergic rhinitis due to other allergic trigger Prasanna Shipman is a 53 y.o. male with hx of ITP, CRS with reassuring sinonasal endoscopy today. Plan to continue with budesonide rinses but may discontinue with mupirocin ointment. We feel his hyposmia may be attributed to viral cause, discussed there is evidence showing use of budesonide rinse. With his seasonal allergy hx, we additionally recommend use of Astelin antihistamine spray for nasal congestion symptom. All questions and concerns addressed at this time. RTC 1 year for mediation renewal. Thank you for the participation of care in this patient. Leora Lackey PA-C Resident Division of Otolaryngology-[place] [address] 01/28/24 12:25 PM I personally saw and evaluated the patient with Leora Lackey PA-C. I performed the history, examination, nasal endoscopy and impression and plan myself. I personally made all medical and surgical diagnoses and decisions for the patient. I have reviewed the note in it's entirety and composed/edited before signing. Thank you very much for asking me to see this very pleasant patient. Sincerely, Raza Glasgow MD Rhinology, Endoscopic Sinus & Skull Base Surgery Division of Otolaryngology - [place] [address] [facility] Over 50% of this 30 minute visit was spent counseling or coordinating care and discussing medical and/or surgical treatments as described above. documented in this encounter Plan of Treatment Upcoming Encounters Date Type Department Care Team (Late st Contact Info) Description 01/28/2025 3:30 PM EDT Office [place] [address] Raza Glasgow MD [facility] [place] [address] documented as of this encounter Visit Diagnoses Diagnosis Chronic pansinusitis Other chronic sinusitis Thrombocytopenia Thrombocytopenia, unspecified History of sinus surgery Personal history of surgery to other organs Non-seasonal allergic rhinitis due to other allergic trigger documented in this encounter Care Teams Category Manager Relationship Specialty Start Date End Date Marian Pierre MD [address] [place] [id number] PCP - General Family Medicine 08/15/22 documented as of this encounter
--- OUTSIDE RECORDS SUMMARY | 2024-10-27 11:22 | XMS_ITS | Encounter Summary ---
[place] [address] Care Team Providers Care Stone Fabricator Name Role Phone Marian Pierre MD Primary Care Provider [phone] Encounter Details Date Type Department Care Team (Late Contact Info) Description 12/12/2023 External Results Hematology [place] [address] Fatemeh Escalante, RN Social History Tobacco Use Types Packs/Day Years Used Date Smoking Tobacco: Never Smokeless Tobacco: Never Alcohol Use Standard Drinks/Week Comments Not Currently 0 (1 standard drink = 0.6 oz pur e alcohol) once a month [facility] Inpatient Questions Answer Date Recorded Does [...] 3:30 PM EDT Office [place] [address] Raza Glasgow MD [facility] [place] [address] documented as of this encounter Procedures Procedure Name Priority Date/Time Associated Diagnosis Comments CBC (WITH DIFF) Routine 12/07/2023 documented in this encounter Results * (ABNORMAL) CBC (with Diff) (12/07/2023) White Blood Cell 5.86 Hemoglobin 16.0 Hematocrit 46.2 Platelet 64(L) Neutrophil Absolute (ANC) - Automated 2.84 Blood 12/07/2023 Historical Provider HEMATOLOGY ORDERA BLES documented in this encounter Visit Diagnoses Not on filedocumented in this encounter Care Teams Stone Fabricator Relationship Specialty Start Date End Date Marian Pierre MD [address] [place] [id number] PCP - General Family Medicine 08/15/22 documented as of this encounter
--- OUTSIDE RECORDS SUMMARY | 2024-10-27 11:22 | XMS_ITS | Encounter Summary ---
[place] [address] Care Team Providers Care Shell Molder Name Role Phone Marian Pierre MD Primary Care Provider [phone] Encounter Details Date Type Department Care Team (Latest Contact Info) Description 07/25/2024 10:32 AM EDT - 07/25/2024 11:59 PM EDT Hospital Encounter [place]ematology [place] [address] History of ITP Discharge Disposition: Home Social History Tobacco Use Types Packs/Day Years Used Date Smoking Tobacco: Never Smokeless Tobacco: Never Alcohol Use Standard Drinks/Week Comments Not Currently 0 (1 standard drink = 0.6 oz pur e alcohol) once a month [facility] Inpatient Questions Answer Date Recorded Does [...] 3:30 PM EDT Office [place] [address] Raza Glasgow MD [facility] [place] [address] documented as of this encounter Procedures Procedure Name Priority Date/Time Associated Diagnosis Comments CBC (WITH DIFF) STAT 07/25/2024 10:38 AM EDT History of ITP documented in this encounter Results * (ABNORMAL) CBC (with Diff) (07/25/2024 10:38 AM EDT) White Blood Cell 5.02 4.00 - 9.50 x10(3)/mc L 07/25/2024 11:01 AM [facility] Red Blood Cell 5.51 4.58 - 5.54 x10(6)/mc L 07/25/2024 11:01 AM [facility] Hemoglobin 15.7 13.7 - 16.5 g/dL 07/25/2024 11:01 AM [facility] Hematocrit 45.3 40.5 - 48.5 % 07/25/2024 11:01 AM [facility] Mean Cell Volume 82.2(L) 82.9 - 93.1 fL 07/25/2024 11:01 AM [facility] Mean Cell Hemoglobin 28.5 27.5 - 32.1 pg 07/25/2024 11:01 AM [facility] Mean Cell Hemoglobin Concentration 34.7 32.0 - 35.7 g/dL 07/25/2024 11:01 AM [facility] Platelet 32(L) 145 - 357 x10(3)/mc L 07/25/2024 11:01 AM [facility] Mean Platelet Volume 13.5(H) 7.6 - 12.9 fL 07/25/2024 11:01 AM [facility] RDW Standard Deviation 38.2 36.0 - 45.0 fL 07/25/2024 11:01 AM [facility] RDW coefficient of variation 12.9 11.4 - 13.8 % 07/25/2024 11:01 AM [facility] NRBC% auto 0.0 % 07/25/2024 11:01 AM [facility] NRBC Absolute <0.01 <0.01 x10(3)/mc L 07/25/2024 11:01 AM [facility] Neutrophil % 44.6 % 07/25/2024 11:01 AM EDT [facility] Neutrophil Absolute (ANC) - Automated 2.24 1.70 - 6.10 x10(3)/mc L 07/25/2024 11:01 AM EDT [facility] Lymph % 44.4 % 07/25/2024 11:01 AM EDT [facility] Lymph Absolute 2.23 0.90 - 3.20 x10(3)/mc L 07/25/2024 11:01 AM EDT [facility] Monocyte % 8.4 % 07/25/2024 11:01 AM EDT [facility] Monocyte Absolute 0.42 0.30 - 0.90 x10(3)/mc L 07/25/2024 11:01 AM EDT [facility] Eos % 1.6 % 07/25/2024 11:01 AM EDT [facility] Eos Absolute 0.08 0.00 - 0.40 x10(3)/mc L 07/25/2024 11:01 AM EDT [facility] Basophil % 0.6 % 07/25/2024 11:01 AM EDT [facility] Baso Absolute <0.04 0.00 - 0.10 x10(3)/mc L 07/25/2024 11:01 AM EDT [facility] Immature Gran % 0.4 % 11:01 AM EDT [facility] Immature Gran Absolute <0.04 0.00 - 0.04 x10(3)/mc L 07/25/2024 11:01 AM EDT [facility] Blood VENOUS BLOOD SPECIMEN / Unknown Venipuncture / Unknown 07/25/2024 10:38 AM EDT 07/25/2024 10:38 AM EDT Norma Garrido ADMINISTRATIVE OFFICE CLERK HEMATOLOGY ORDERAB LES [facility] [place] [address] documented in this encounter Visit Diagnoses Diagnosis History of ITP Personal history of diseases of blood and blood-forming organs documented in this encounter Care Teams Shell Molder Relationship Specialty Start Date End Date Marian Pierre MD [address] [place] [id number] PCP - General Family Medicine 08/15/22 documented as of this encounter
--- OUTSIDE RECORDS SUMMARY | 2024-10-27 11:22 | XMS_ITS | Encounter Summary ---
[place] [address] Care Team Providers Care Home Appliance Installer Name Role Phone Marian Pierre MD Primary Care Provider Encounter Details Date Type Department Care Team (Late st Contact Info) Description 10/22/2024 Telephone Hematology [place] [address] Sabrina Cobb, RN Social History Tobacco Use Types Packs/Day Years Used Date Smoking Tobacco: Never Smokeless Tobacco: Never Alcohol Use Standard Drinks/Week Comments Not Currently 0 (1 standard drink = 0.6 oz pur e alcohol) once a month [facility] Inpatient Questions Answer Date Recorded Does [...] encounter Miscellaneous Notes * Telephone Encounter - Sabrina Cobb RN - 10/22/2024 11:30 AM EST Pt has a molar extraction and implant placement scheduled for 10/31/[address] Cardenas at [facility]. RN returned a call to [employer] office ([phone]) and spoke with Bronwyn, trade union secretary, to relay recommendation from Dr. Rebolledo. Per Dr. Rebolledo: Prasanna has a hx of chronic thrombocytopenia. I recommend checking a CBC BEFORE the extraction. Based on the platelet count, I defer to his dentist if she needsto refer him to oral surgery here or if she is comfortable performing the extraction. [place] asked if Dr. Rebolledo or Norma Garrido APRN, would be able to call the office tomorrow 10/23/24 after 10:45 am to speak directly with Dr. Cardenas, oral surgeon, and make a decision on wherept should have surgery, and any necessary precautions. RN will pass the request onto both providers. RN followed up with pt to update him and will continue to as needed. Pt verbalizes understanding ofplan. documented in this encounter Plan of Treatment Upcoming Encounters Date Type Department Care Team (Late st Contact Info) Description 01/28/2025 3:30 PM EDT Office [place] [address] Raza Glasgow MD [facility] [place] [address] documented as of this encounter Visit Diagnoses Not on filedocumented in this encounter Care Teams Home Appliance Installer Relationship Specialty Start Date End Date Marian Pierre MD [address] [place] [address] PCP - General Family Medicine 08/15/22 documented as of this encounter
--- OUTSIDE RECORDS SUMMARY | 2024-10-27 11:23 | XMS_ITS | Encounter Summary ---
Author [facility] [place] [address] Care Team Providers Care Wrapper And Preserver Name Role Phone Marian Pierre MD Primary Care Provider Encounter Details Date Type Department Care Team (Latest Contact Info) Description 10/12/2023 Travel Social History Tobacco Use Types Packs/Day Years Used Date Smoking Tobacco: Never Smokeless Tobacco: Never Alcohol Use Standard Drinks/Week Comments Not Currently 0 (1 standard drink = 0.6 oz pur e alcohol) once a month Sex and Gender Information Value Date Recorded Sex Assigned at Not on file Gender Identity Not on file Sexual Orientation Not on file documented as of this encounter Plan of Treatment Upcoming Encounters Date Type Department Care Team (Late st Contact Info) Description 01/28/2025 3:30 PM EDT Office Visit [place] [address] Raza Glasgow MD [facility] [address] documented as of this encounter Visit Diagnoses Not on filedocumented in this encounter Care Teams Wrapper And Preserver Relationship Specialty Start Date End Date Marian Pierre MD [address] [place] [id number] PCP - General Family Medicine 08/15/22 documented as of this encounter
--- OUTSIDE RECORDS SUMMARY | 2024-10-27 11:23 | XMS_ITS | Encounter Summary ---
Author Organization [facility] Address [facility] [place] [address] Care Team Providers Care Shredder Tender Name Role Phone Marian Pierre MD Primary Care Provider [phone] Encounter Details Date Type Department Care Team (Late st Contact Info) Description 08/30/2023 2:00 PM EDT Office [place] [address] Mayo Ro MD [facility] [address] HANDY (dyspnea on exertion) Social History Tobacco Use Types Packs/Day Years [...] Sign Reading Time Taken Comments Blood Pressure 125/77 08/30/2023 1:40 PM EDT Pulse 94 08/30/2023 1:40 PM EDT Temperature 35.7 ??C (96.3 ??F) 08/30/2023 1:40 PM ED T Respiratory Rate 16 08/30/2023 1:40 PM EDT Oxygen Saturation 99% 08/30/2023 1:40 PM EDT Inhaled Oxygen Concentration - - Weight 100.1 kg (220 lb 9.6 oz) 08/30/2023 1:40 PM EDT Height 176.5 cm (5' 9.5) 08/30/2023 1:40 PM EDT Body Mass Index 32.11 08/30/2023 1:40 PM EDT documented in this encounter Patient Instructions * Patient Instructions* Mayo Ro MD - 08/30/2023 2:00 PM EDT Your shortness of breath is not related to any lung dysfunction. It still could be related to your heart and the findings of EKG changes during heavy exercise. Thus I will talk with your wet process miller head about the need for a catheterization study to definitely look at your heart arteries. I will see you again in 2 months. documented in this encounter Progress Notes * Mayo Ro MD - 08/30/2023 2:00 PM EDT Images from the original note were not included. [facility] Section of Pulmonary and Critical Care Medicine Outpatient Consultation Follow-up Date of Encounter: 08/27/2023 . He was last seen in the Pulmonary Clinic in February 2023. I independently interviewed and examined the patient in the office and have reviewed available records. History of Present Illness: Prasanna Shipman is a 53 y.o. with PMH of asthma, ITP, COVID-19 x 2, hyperlipidemia, and PALAK. Details taken from the pulmonary note of 12/19/22 for evaluation of dyspnea and cough. His PFTs show normal spirometry/DLCO. His CT scan reveals no evidence of pulmonary pathology. He was placed on higher symbicort dosing for 8 weeks and noticed no improvement in his symptoms. Hetakes albuterol before physical activity, but does not feel that it helps. He took the COVID booster in July of 2022. 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 He has been on two courses of prednisone for his ENT symptoms. He noticed no improvement in his breathing with this He is short of breath with walking up 2 flights of stairs. He feels that he wheezes at night time. He has significant coughing spells with exercise. He always has clear lungs on auscultation. He had lost 15 pounds intentionally with exercise. Since that visit, he had an CPET on 02/20/23 showing a near normal exercise capacity, no evidence ofpulmonary/ventilatory limitation, but possible myocardial ischemia by EKG monitoring. The full report is given below. As well in March he was seen by cardiology, the evaluation showed coronary atherosclerosis by CT scanning, but it was felt his lesions were not problematic, but his symptoms were possibly related to stress. He presently is dyspneic with exercise on treadmill. He has some days when the same level of exertion does not seem to be problematic. Labs: No significant eosinophilia on CBC,no anemia, nl bicarbonate PFTS: 09/01/2022-normal spirometry. No diffusion impairment CPET 02/20/23 Baseline Data: Spirometry was mildly abnormal: FVC suggests possible restriction. No evidence of obstruction. Oxygen saturation at rest was 99% on room air Resting blood pressure was 130/88 Twelve-lead ECG at rest showed normal sinus rhythm and a resting heart rate of 91 beats/min Exercise Test Protocol: Incremental exercise testing was performed on a cycle ergometer to a maximum of 209 garner Total exercise time was 11 minutes 30 seconds The patient achieved 209 garner of work at peak exercise, or 93% predicted Peak RADHA scale ratings of breathlessness and leg discomfort were 6 and 7, respectively General: Peak VO2 was 23.3 ml/kg/min (77% pred) Peak RER was 1.31 Peak O2 pulse was 13 ml/beat (76% pred) Anaerobic threshold occurred at a VO2 of 750 ml/kg/min, or 25% of predicted peak VO2 (normal 40-65%) Cardiac: Peak heart rate was 173 beats/min, or 102% of predicted maximum value Blood pressure was 158/88 at peak exercise Twelve-lead ECG during exercise showed precordial ST- elevations Respiratory: Peak exercise ventilation was 110 liters/min or 66% of the estimated maximum voluntary ventilation The calculated breathing reserve at peak exercise was 34% (normal >15-20%) Respiratory rate was 56 breaths/min at maximal exercise Oxygen saturation was 99% at rest and 91% at peak exercise Summary: He reached anaerobic threshold early Mild desaturation, but no ventilatory limitation Abnormal cardiac response Mildly reduced oxygen pulse, reduced total VO2, ST elevations in precordial leads resolving with rest Finding concerning for pathologic cardiac limitation. Additional evaluation for ischemia is warranted Imaging: CT chest from July 2022-no lung parenchymal abnormalities Cardiac pharmacologic stress study 05/22/23 No fixed or reversible perfusion defects are present. Functional analysis: Myocardial function: There is normal wall thickening and wall motion. Rest Left ventricular ejection fraction: 66% Stress Left ventricular ejection fraction: 75% Coronary flow reserve LAD territory: 2.9 Coronary flow reserve Circumflex territory: 2.6 Coronary flow reserve RCA territory: 3.2 Coronary flow reserve total: 2.[address] FINDINGS: Hepatic steatosis. IMPRESSION No ischemia or scar. Left ventricular function is normal. Normal coronary flow reserve. Review of Systems: An 11-point ROS was negative except per the HPI. Physical Examination: Patient Vitals for the past 24 hrs: Temp Pulse Resp BP SpO2 08/30/23 1340 35.7 ??C (96.3 ??F) 94 16 125/77 99 % GENERAL: in no distress HEART: No ventricular heave; regular rate and rhythm; no murmers, rubs, or gallops LUNGS: clear to P and A ABD: Soft, nontender and nondistended, bowel sounds present, no hepatomegaly, no splenomegaly EXT: No edema, no clubbing, no joint swelling or deformities SKIN: No rashes NEURO: Alert and oriented, moving all extremities Labs: Metabolic Parameters Lab Results Component Value Date NA 138 08/14/2023 K 4.2 08/14/2023 CL 102 08/14/2023 CO2 21 (L) 08/14/2023 ANIONGAP 15 08/14/2023 BUN 19 08/14/2023 CREATININE 1.08 08/14/2023 GLUCOSE Not Perf 08/14/2023 CALCIUM 9.3 08/14/2023 Hematologic Parameters Lab Results Component Value Date WBC 10.3 (H) 08/14/2023 NEUTOPHILPCT 86.4 08/14/2023 IMMGRANPCT 0.60 08/14/2023 ANC 2.54 03/22/2021 LYMPHOPCT 8.7 08/14/2023 MONOPCT 4.2 08/14/2023 BASOPCT 0.1 08/14/2023 EOSPCT 0.0 08/14/2023 HGB 14.7 08/14/2023 HCT 42.1 08/14/2023 RBC 5.17 08/14/2023 MCV 81.4 (L) 08/14/2023 MCHC 34.9 08/14/2023 RDWSD 36.9 08/14/2023 PLATELET 45 (L) 08/14/2023 LFT and Associated Parameters Lab Results Component Value Date AST 17 02/21/2023 ALT 39 02/21/2023 ALKPHOS 88 02/21/2023 BILITOT 0.4 02/21/2023 BILIDIR 0.1 04/19/2016 ALBUMIN 4.6 02/21/2023 Imaging: No new imaging Impression and Plan of Care: Exercise intolerance with EKG changes worrisome for ischemia. At this point, either he has myocardial ischemia at high levels of exercise and cardiac demand, notsimulated pharmacologically or microvascular disease and not epicardial vessel disease. 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 I will discuss the question of proceeding to left heart catheterization with cardiology. I spent 39 minutes on all aspects of this visit including chart review, history taking, physical exam, formulating and discussing plans with the patient and drafting this note. aMyo Ro MD, PhD [facility] [address] Dept: [phone] Loc: [phone] documented in this encounter Plan of Treatment Upcoming Encounters Date Type Department Care Team (Late st Contact Info) Description 01/28/2025 3:30 PM EDT Office [place] [address] Raza Glasgow MD [facility] [place] [address] documented as of this encounter Visit Diagnoses Diagnosis HANDY (dyspnea on exertion) Other dyspnea and respiratory abnormality documented in this encounter Care Teams Shredder Tender Relationship Specialty Start Date End Date Marian Pierre MD [address] [place] [id number] PCP - General Family Medicine 08/15/22 documented as of this encounter
--- OUTSIDE RECORDS SUMMARY | 2024-10-27 11:23 | XMS_ITS | Encounter Summary ---
Author [facility] [place] [address] Care Team Providers Care Urology Teacher Name Role Phone Marian Pierre MD Primary Care Provider [phone] Encounter Details Date Type Department Care Team (Latest Contact Info) Description 11/08/2023 Travel Social History Tobacco Use Types Packs/Day Years Used Date Smoking Tobacco: Never Smokeless Tobacco: Never Alcohol Use Standard Drinks/Week Comments Not Currently 0 (1 standard drink = 0.6 oz pur e alcohol) once a month [facility] Inpatient Questions Answer Date Recorded Does Anyone [...] 3:30 PM EDT Office Visit [place] [address] Raza Glasgow MD [facility] [place] [address] documented as of this encounter Visit Diagnoses Not on filedocumented in this encounter Care Teams Urology Teacher Relationship Specialty Start Date End Date Marian Pierre MD [address] [place] [id number] PCP - General Family Medicine 08/15/22 documented as of this encounter
--- OUTSIDE RECORDS SUMMARY | 2024-10-27 11:23 | XMS_ITS | Encounter Summary ---
[place] [address] Care Team Providers Care School Vocational Educator Name Role Phone Marian Pierre MD Primary Care Provider [phone] Reason for Visit * Auth/Cert (Routine) Specialty Diagnoses / Procedures Referred By Den tamayo Referred To Contact Diagnoses Chronic pansinusitis chronic pansinusitis, thrombocytopenia Procedures PRO NASAL/SINUS ENDOSCOPY SURG W/DILATION MAXILLARY SINUS PRO NASAL/SINUS ENDOSCOPY SURG W/DILATION FRONTAL SINUS PRO NASAL/SINUS ENDOSCOPY SURG W/DILATION SPHENOID SINUS PRO FRACTURE NASAL INFERIOR TURBINATE THERAPEUTIC PRO STEREOTACTIC CPTR ASSTD PX CRANIAL, EXTRADURAL NASAL/SINUS ENDOSCOPY, W/BALLOON DILATION OF MAXILLARY SINUS OSTIUM (WRVU 2.7) NASAL/SINUS ENDOSCOPY, W/BALLOON DILATION OF FRONTAL SINUS OSTIUM (WRVU 3.1) NASAL/SINUS ENDOSCOPY, W/BALLOON DILATION OF SPHENOID SINUS OSTIUM (WRVU 2.44) FRACTURE NASAL INFERIOR TURBINATE(S), THERAPEUTIC-MORRIS (WRVU 1.31) STEREOTACTIC COMPUTER-ASSTD NAVIGATIONAL CRANIAL EXTRADURAL (WRVU 3.18) MODIFIER,STEALTH 2,KINEVO Raza Glasgow MD [facility] [address] [facility] Referral ID Status Reason Start Date Expiration Date Visits Re quested Visits Authorized [id number] 1 1 Encounter Details Date Type Department Care Team (Late st Contact Info) Description 10/16/2023 2:33 PM EST Anesthesia Event [place] [address] Mary Alice Pal MD [facility] DR [place] [address] Harper Luo CRNA [facility] [place] [address] Anesthesia Record Procedure Summary Procedure Name Responsible Anesthesiologist Anesthesia Start Time Anesthesia Stop Time NASAL/SINUS ENDOSCOPY, W/BALLOON DILATION OF MAXILLARY SINUS OSTIUM (WRVU 2.7) (Bilateral) Mary Alice Pal MD 10/16/23 1433 10/16/23 1601 Events Date Time Event Comment 10/16/2023 1240 1433 Start 1436 AN Verify 1436 An Start Data 1440 An Induction 1445 An Intubation 1447 Anesthesia Ready 1448 Quick Note Plt transfusion started. 1501 Procedure Start 1505 Quick Note Plt transfusion complete. 1548 Extubation/LMA Out 1552 an stop data 1559 Recovery or ICU Handoff Patrica ent care was transferred to the destination unit staff after review of the patient's medical history, current anesthetic/surgical status and plan, according to the Provider Handoff Checklist. 1601 Stop Meds Name Total fentaNYL 100 mcg IV Lidocaine 100 mg Propofol 250 mg Rocuronium 80 mg Ondansetron 4 mg Dexamethasone 8 mg esmolol 100 mg ceFAZolin 2 g propofol INF 234.83 mg sugammadex 400 mg lactated ringers 700 mL sodium chloride 0.9% 250 mL * Agents Name O2 * Blood No blood administrations on file. Lines, Drains, and Airways Type Details Placement Removal Incision 08/13/23; 1741; Left ; axilla; arthroscopic punctures (specify) (5 incisions total) 08/13/23 1741 by Dayne Lees RN Incision 10/16/23; nose (sinus) 10/16/23 0000 by Arelis Pfeiffer RN PIV 10/15/23; 0834; [id number] catheter system; 22 gauge, 1 in length; median vein (underside of arm), left; daryl vaughan RN; intradermal injection, tolerated well, appears comfortable; 0; 10/16/23; 1644 10/15/23 0834 by Rachelle Vaughan RN 10/16/23 1644 by Florencia Summers RN PIV 10/16/23; 1202; 18 g auge; median cubital vein (antecubital fossa), right; Anatomical Landmarks; distraction, intradermal injection, appears comfortable, tolerated well; 10/16/23; 1645 10/16/23 1202 by Yvette Devine RN 10/16/23 1645 by Florencia Summers RN ETT Mask Ventilation: Ea sy (1); ETT Type: Cuffed; ETT Size: 7 mm; Notes: Asleep; Attempts: 1; Laryngoscopy Grade: 1; ETT Placement Verified By: Capnometry, Visual; Secured at Teeth: 20 cm; Inserted by: VENESSA Luo; Removal Date: 10/16/23; Removal Time: 1548 10/16/23 1445 by Harper Luo CRNA 10/16/23 1548 by Harper Luo CRNA documented in this encounter Social History Tobacco Use Types Packs/Day Years [...] on file documented as of this encounter OR Notes * Anesthesia Postprocedure Evaluation - Mary Alice Pal MD - 10/16/2023 4:24 PM EST Department of Anesthesiology Post-procedure Note Patient: Prasanna Shipman Procedure Summary Date: 10/16/23 Room / Location: [facility] OR [address] [place] [address] MAIN OR Anesthesia Start: 1433 Anesthesia Stop: 1601 Procedures: NASAL/SINUS ENDOSCOPY, W/BALLOON DILATION OF MAXILLARY SINUS OSTIUM (WRVU 2.7) (Bilateral) NASAL/SINUS ENDOSCOPY, W/BALLOON DILATION OF FRONTAL SINUS OSTIUM (WRVU 3.1) (Bilateral) FRACTURE NASAL INFERIOR TURBINATE(S), THERAPEUTIC-MORRIS (WRVU 1.31) (Bilateral: Nose) STEREOTACTIC COMPUTER-ASSTD NAVIGATIONAL CRANIAL EXTRADURAL (WRVU 3.18) MODIFIER,STEALTH 2,KINEVO Diagnosis: Chronic pansinusitis Thrombocytopenia Nasal obstruction (chronic pansinusitis, thrombocytopenia) Surgeons: Raza Glasgow MD Responsible Provider: Mary Alice Pal MD Anesthesia Type: general ASA Status: 3 All Anesthesia Providers: Anesthesiologist: April Bloom MD; Mary Alice Pal MD IDENTIFICATION TECHNICIAN: Harper Luo CRNA Vitals Value Taken Time BP 125/77 10/16/23 1615 Temp 36.5 ??C (97.7 ??F) 10/16/23 1555 Pulse 81 10/16/23 1555 Resp 16 10/16/23 1615 SpO2 95 % 10/16/23 1616 Pain Level 6 10/16/23 1612 Vitals shown include unfiled device data. Patient Location: PACU/SDP Level of Consciousness: Awake and Alert Pain Management: Satisfactory Analgesia PONV: None Cardiovascular Status: At Baseline and Hemodynamically Stable Respiratory Status: At Baseline and Room Air Postoperative Fluid Status: Intravascular EUvolemia Possible Anesthetic Complications: NONE apparent at time of evaluation Final Primary Anesthesia Type: General (The anesthetic type performed was the same as planned.) Comments: MARY ALICE PAL MD * Anesthesia Preprocedure Evaluation - April Bloom MD - 10/16/2023 12:38 PM EST Pre-Anesthesia Evaluation for: Prasanna Shipman a 53 y.o. male. Procedure(s): NASAL/SINUS ENDOSCOPY, W/BALLOON DILATION OF MAXILLARY SINUS OSTIUM (WRVU 2.7) NASAL/SINUS ENDOSCOPY, W/BALLOON DILATION OF FRONTAL SINUS OSTIUM (WRVU 3.1) NASAL/SINUS ENDOSCOPY, W/BALLOON DILATION OF SPHENOID SINUS OSTIUM (WRVU 2.44) FRACTURE NASAL INFERIOR TURBINATE(S), THERAPEUTIC-MORRIS (WRVU 1.31) STEREOTACTIC COMPUTER-ASSTD NAVIGATIONAL CRANIAL EXTRADURAL (WRVU 3.18) MODIFIER,STEALTH 2,KINEVO Patient Active Problem List Diagnosis Date Noted ??? s/p L shoulder distal clavicle excision, arthroscopic debridement, biceps tenodesis 08/13/23 08/13/2023 ??? Mild coronary artery disease 04/17/2023 ??? Chest pressure 02/28/2023 ??? Pure hypertriglyceridemia 02/28/2023 ??? Right buttock pain 05/25/2020 ??? Spleen enlarged 02/22/2018 ??? Multiple lipomas 03/20/2017 ??? Obesity 03/20/2017 ??? Thrombocytopenia 04/20/2016 Past Medical History: Diagnosis Date ??? Allergy ??? asthma ??? prostatitis ??? restless leg Past Surgical History: Procedure Laterality Date ??? CT GUIDED INJECTION SI JOINT 09/10/2018 CT Guided Injection SI Joint 09/10/2018 [facility] RAD CAT SCAN ??? CT GUIDED NERVE BLOCK LUMBAR SINGLE LEVEL 08/05/2019 CT Guided Nerve Block Lumbar Single Level 08/05/2019 [facility] RAD CAT SCAN ??? PRO PARTIAL REMOVAL, CLAVICLE Left 08/13/2023 CLAVICULECTOMY, PARTIAL (WRVU 7.39) performed by Devendra Bennett MD at [facility] MAIN OR ??? PRO REPAIR BICEPS LONG TENDON Left 08/13/2023 TENODESIS,BICEPS TENDON (PROXIMAL) (WRVU 10.17) performed by Devendra Bennett MD at [facility] MAIN OR ??? PRO SHLDR ARTHROSCOP, EXTEN DEBRIDE Left 08/13/2023 ARTHROSCOPY SHOULDER DEBRIDEMENT EXTENSIVE (WRVU 7.98) performed by Devendra Bennett MD at [facility] MAIN OR ??? PRO UNLISTED PROCEDURE, MUSCULOSKELETAL SYSTEM, GENERAL Knee ??? PRO UNLISTED PX UR SYS June, Vasectomy Social History Tobacco Use ??? Smoking status: Never ??? Smokeless tobacco: Never Substance Use Topics ??? Alcohol use: Not Currently Comment: once a month Social History Substance and Sexual Activity Drug Use No Allergies Allergen Reactions ??? Pollen, Micronized Itching Watery eyes and sneezing Medications: MAR and/or home medications have been reviewed. Physical Exam: Preprocedure Vitals Current as of 10/16/23 1238 BP: 153/105 Pulse: 83 Resp: 20 SpO2: 98 Temp: 36.5 ??C (97.7 ??F) Height: 175.3 cm (5' 9) (10/16/23) Weight: 102.1 kg (225 lb) (10/16/23) BMI: 33.22 IBW: 70.7 kg (155 lb 15.1 oz) Last edited 10/16/23 1152 by Airway Assessment: Mallampati: II TM distance: >3 FB Neck ROM: full Cardiovascular Assessment: system normal Pulmonary Assessment: unlabored breathing Dental Assessment: - normal exam Misc Assessment: IV access: Peripheral line Last Filed Perioperative Cognitive Screening None Anesthesia Plan: ASA 3 general, with a(n) intravenous induction 53M with a h/o chronic thrombocytopenia (33k yesterday), splenomegaly, and mild asthma presenting for bilateral balloon dilation of sinuses. Plan for platelet transfusion in pre-op and stat platelet count with possible additional transfusion to goal of 50k, GA w/ ETT. Region - Other Informed Consent: Anesthetic plan and risks discussed with patient. Use of blood products discussed with patient who consented to blood products. Plan discussed with IDENTIFICATION TECHNICIAN. Anesthesia Screening documented in this encounter Plan of Treatment Upcoming Encounters Date Type Department Care Team (Late st Contact Info) Description 01/28/2025 3:30 PM EDT Office [place] [address] Raza Glasgow MD [facility] [address] documented as of this encounter Visit Diagnoses Not on filedocumented in this encounter Administered Medications Inactive Administered Medications - up to 3 most recent administrations Medication Order MAR Action Action Date Dose Rate Site ceFAZolin (Ancef) injection Intravenous, PRN, Starting on Sun10/16/23 at 1500, Until Sun10/16/23 at 1601, Anesthesia Intra-op, Routine Given 10/16/2023 3:00 PM EST 2 g dexAMETHasone (Decadron) injection Intravenous, PRN, Starting on 10/16/23 at 1458, Until 10/16/23 at 1601, Anesthesia Intra-op, Routine Given 10/16/2023 2:58 PM EST 8 mg esmoloL (Brevibloc) (10 mg/mL) injection Intravenous, PRN, Starting on 10/16/23 at 1440, Until 10/16/23 at 1601, Anesthesia Intra-op, Routine Given 10/16/2023 2:43 PM EST 50 mg Given 10/16/2023 2:40 PM EST 50 mg fentaNYL (pf) (50 mcg/mL) multi-dose injection Intravenous, PRN, Starting on 10/16/23 at 1455, Until 10/16/23 at 1601, Anesthesia Intra-op, Routine Given 10/16/2023 3:09 PM EST 50 mcg Given 10/16/2023 2:55 PM EST 50 mcg lactated ringers infusion Intravenous, CONTINUOUS PRN, Starting on 10/16/23 at 1436, Until 10/16/23 at 1601, Anesthesia Intra-op New Bag 10/16/2023 2:36 PM EST lidocaine (pf) (Xylocaine) (20 mg/mL) 2% injection syringe Intravenous, PRN, Starting on 10/16/23 at 1440, Until 10/16/23 at 1601, Anesthesia Intra-op, Routine Given 10/16/2023 2:40 PM EST 100 mg ondansetron (pf) (Zofran) (2 mg/mL) injection Intravenous, PRN, Starting on 10/16/23 at 1459, Until 10/16/23 at 1601, Anesthesia Intra-op, Routine Given 10/16/2023 2:59 PM EST 4 mg propofoL (Diprivan) (10 mg/mL) infusion Intravenous, CONTINUOUS PRN, Starting on 10/16/23 at 1506, Until 10/16/23 at 1601, Anesthesia Intra-op, Routine Rate/Dose Change 10/16/2023 3:26 PM EST 100 mcg/kg/min 61.26 mL/hr Rate/Dose Change 10/16/2023 3:18 PM EST 75 mcg/kg/min 45.9 45 mL/hr New Bag 10/16/2023 3:06 PM EST 50 mcg/kg/min 30.63 mL/h r propofoL (Diprivan) 10 mg/mL bolus injection (Anesthesia) Intravenous, PRN, Starting on 10/16/23 at 1440, Until 10/16/23 at 1601, Anesthesia Intra-op Given 10/16/2023 3:24 PM EST 50 mg Given 10/16/2023 2:43 PM EST 20 mg Given 10/16/2023 2:40 PM EST 180 mg rocuronium (Zemuron) (10 mg/mL) multi-dose injection Intravenous, PRN, Starting on 10/16/23 at 1440, Until 10/16/23 at 1601, Anesthesia Intra-op, Routine Given 10/16/2023 3:24 PM EST 30 mg Given 10/16/2023 2:40 PM EST 50 mg sodium chloride 0.9% infusion Intravenous, CONTINUOUS PRN, Starting on 10/16/23 at 1505, Until 10/16/23 at 1601, Anesthesia Intra-op New Bag 10/16/2023 3:05 PM EST sugammadex (Bridion) 100 mg/mL injection Intravenous, PRN, Starting on 10/16/23 at 1543, Until 10/16/23 at 1601, Anesthesia Intra-op, Routine Given 10/16/2023 3:43 PM EST 200 mg Given 10/16/2023 3:38 PM EST 200 mg documented in this encounter Care Teams School Vocational Educator Relationship Specialty Start Date End Date Marian Pierre MD [address] [place] [address] PCP - General Family Medicine 08/15/22 documented as of this encounter
--- OUTSIDE RECORDS SUMMARY | 2024-10-27 11:23 | XMS_ITS | Encounter Summary ---
Author Organization [facility] [place] [address] Care Team Providers Care Nurse Obgyn Name Role Phone Marian Pierre MD Primary Care Provider [phone] Encounter Details Date Type Department Care Team (Late st Contact Info) Description 11/15/2023 Orders [place] [address] Raza Glasgow MD [facility] [place] [address] Social History Tobacco Use Types Packs/Day Years [...] 3:30 PM EDT Office [place] [address] Raza Glasgow MD [facility] [place] [address] documented as of this encounter Visit Diagnoses Not on filedocumented in this encounter Care Teams Nurse Obgyn Relationship Specialty Start Date End Date Marian Pierre MD [address] [place] [phone] PCP - General Family Medicine 08/15/22 documented as of this encounter
--- OUTSIDE RECORDS SUMMARY | 2024-10-27 11:23 | XMS_ITS | Encounter Summary ---
Author Organization [facility] [place] [address] Care Team Providers Care Electricians Top Helper Name Role Phone Mraian Pierre MD Primary Care Provider [phone] Encounter Details Date Type Department Care Team (Latest Contact Info) Description 10/22/2023 Travel Social History Tobacco Use Types Packs/Day Years Used Date Smoking Tobacco: Never Smokeless Tobacco: Never Alcohol Use Standard Drinks/Week Comments Not Currently 0 (1 standard drink = 0.6 oz pur e alcohol) once a month [facility] Inpatient Questions Answer Date Recorded Does Anyone [...] PM EDT Office Visit [place] [address] Raza Glasgow MD [facility] [place] [address] documented as of this encounter Visit Diagnoses Not on filedocumented in this encounter Care Teams Electricians Top Helper Relationship Specialty Start Date End Date Marian Pierre MD [address] [place] [id number] PCP - General Family Medicine 08/15/22 documented as of this encounter
--- OUTSIDE RECORDS SUMMARY | 2024-10-27 11:23 | XMS_ITS | Encounter Summary ---
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 Name Role Phone Marian Pierre MD Primary Care Provider [phone] Reason for Visit * Auth/Cert (Routine) Specialty [...] (WRVU 3.18) MODIFIER,STEALTH 2,KINEVO Raza Glasgow MD [facility] [place] [address] [facility] Referral ID Status Reason Start Date Expiration Date Visits Re quested Visits Authorized [id number] 1 1 Encounter Details Date Type Department Care Team (Latest Contact Info) Description 10/16/2023 10:52 AM EST - 10/16/2023 5:04 PM EST Hospital Encounter [place] [address] Raza Glasgow MD [facility] [place] [address] Chronic pansinusitis; Thrombocytopenia; Nasal obstruction Discharge Disposition: Home Social History Tobacco Use [...] Sign Reading Time Taken Comments Blood Pressure 140/89 10/16/2023 4:45 PM EST Pulse 81 10/16/2023 3:55 PM EST Temperature 36.6 ??C (97.9 ??F) 10/16/2023 4:45 PM ES T Respiratory Rate 16 10/16/2023 4:45 PM EST Oxygen Saturation 94% 10/16/2023 4:45 PM EST Inhaled Oxygen Concentration - - Weight 102.1 kg (225 lb) 10/16/2023 11:52 AM EST Height 175.3 cm (5' 9) 10/16/2023 11:52 AM EST Body Mass Index 33.23 10/16/2023 11:52 AM EST documented in this encounter Discharge Instructions * Discharge Instructions* Ruchi Dodge RN - 10/16/2023 1:29 PM EST [place], [place] INFORMATION FOR TRANSFUSION RECIPIENTS: You have received a transfusion of a blood product obtainedfrom a volunteer donor. Before you leave the hospital, we will carefully check for any adverse reactions. However, once you leave, please pay attention to the signs of a transfusion reaction listed on the other side of this card. Should you notice any of these symptoms or should you be worried about this transfusion for any reason, you should call or come back to the hospital. Most reactions to blood product transfusions are mild and can be easily treated. However, a mild reaction could be a warning of a more serious reaction to come. Therefore, we urge you to contact the hospital should you suspect a transfusion reactionor are worried. SIGNS AND SYMPTOMS OF A TRANSFUSION REACTION: ?? Fever ?? Chills or shaking ?? Hives, rash or itching ?? Shortness of breath or difficulty breathing ?? Dizziness or lightheadedness ?? Brown, pink, or bloody urine ?? New cough ?? Back pain (or any new and unexplainable pain) ?? Yellowing of skin or whites of the eyes (jaundice) ?? Pain or swelling at or near the transfusion site. If you discover any of these symptoms or need help, call [facility] at and ask to speak to your provider or the provider workplace rehabilitation officer. You may also call the provider workplace rehabilitation officer for the [facility] at . If you need emergency care, you should come to our Emergency Department or to any other hospital. Details of your transfusion will be available by calling [facility]. Policy Tech 60808 Revised 10/21 * Patient Instructions* Kelly Miles MD - 10/06/2023 11:49 AM EST Images from the original note were not included. Instructions Following Nasal Surgery What to Expect Drainage: You can expect some bloody mucus drainage from your nose for up to one week after surgery. This drainage will be greatest the first 3 days after surgery, during which time you may wish to keep a gauze bandage taped beneath your nose. Pain: Pain following nasal surgery is usually mild and readily controlled by over the counter medications. Sleeping with your head elevated (at least on 2 pillows) helps decrease pain and swelling. If pain is mild, Tylenol (acetaminophen) is often sufficient. You may use NSAIDs such as ibuprofen asa 2nd line in addition to acetaminophen, unless otherwise instructed by your doctor. Congestion: Don't be discouraged if you can't breath through your nose at first. It typically takes2 to 3 weeks before the inflammation and swelling inside the nose have subsided enough to provide agood nasal airway. Remember, your body is undergoing a gradual healing process. Nausea: Mild nausea and even brief vomiting is not unexpected after surgery. This can occur from a combination of many factors including anesthesia, postoperative medications, and swallowed blood. You should focus on remaining well-hydrated. If vomiting persists, please call your physician. Saline Irrigations Irrigations are a critical component of your postoperative care. Irrigate with a NeilMed rinse bottle (or equivalent) 3X/day for the first week after surgery, beginning on the day following your surgery. You can use the NeilMed packets or mix your own salt solution. Irrigations should be forceful enough to dislodge any crusts, but should not be uncomfortable or painful. Be sure to use warm, but not hot water for irrigations. Diet You can eat and drink whatever you would like after surgery. Focus first on remaining well-hydratedand incorporate foods after any nausea resolves. Begin with bland foods first and work your way back to exotic and/or spicy foods. Daily Activity It is best not to blow your nose for one week after surgery, as this may cause bleeding. If you feel the need to blow your nose, irrigate with warm saline instead. Heavy lifting, straining, and exercise that might cause nasal bleeding should be avoided during the first week. After one week you may increase your level of physical activity as you feel up to it. After two weeks, there are no limitations. Medications In most instances, you will have been given a prescription for an antibiotic course after surgery. Continue taking this antibiotic until complete. If you were put on a prednisone taper prior to surgery then complete this course as well. If you are normally on a nasal steroid spray you can restart this at any time after surgery. You will be given a prescription for a pain medication to take home. Directions will be on the bottles. Pain following nasal surgery is usually mild and readily controlled by medication. It is rare to require this medication beyond one week after surgery. What to Look For Please call the office or come to the Emergency Room should you develop: Brisk, new bleeding from the nose which doesn't stop after a few minutes of sitting up and squeezing your nostrils together Fever (greater than 101 degrees orally), chills or shakes Swelling of the eye or decreased vision Unrelenting headache Unrelenting nausea and vomiting Nasal Irrigations What is nasal irrigation and [...] sale packets such as those sold by [employer] can be purchased at most drug stores, [...] the nose. We recommend using either a [employer] squeeze bottle or a combination bulb-syring irrigation [...] to completely air dry before using again. Nasal Dryness/Irritation Make sure you are following the instructions described when instilling your nasal steroid spray. If nasal dryness and or irritation are still a problem, the over the counter product AYR saline gel spray may be used intermittently 6-8 times per day. Wait at least 15 minutes after nasal steroid spray use before instilling saline. If dryness and or irritation continue apply AYR saline gel to the nostrils at bedtime in addition to the AYR saline gel spray. This saline gel product is also available over the counter. When you have a nose bleed, here are some tips to help you stop the bleed: Lean your head forward, not back. If you lean back the blood will just go down the back of your throat and you will get a false sense of how much it is bleeding. Gently blow your nose to remove any clots that have formed. Clots are not your friend, they keep the blood vessel from closing off. Apply 2 sprays of Afrin (available over the counter, active ingredient is oxymetazoline) nasal spray to each nostril. Pinch your nose closer to the tip (see picture below) and hold very firm pressure for 10-15 minutes. Pinching higher up on the nose does not put any pressure on the bleeding area. You should hold it very much like you would if you were going to jump into the water. It is better to pinch with your fingers versus a clamp if possible. If it has not stopped after 5 minutes, repeat steps 1 and 2. Soaking a cotton ball with Afrin and placing on the inside of the bleeding side of the nose can also help. Hold very firm, constant pressure by pinching closer to the soft tip of the nose. Hold for 10-15 minutes by the clock, without letting up pressure or peeking to see if bleeding is present. documented in this encounter Medications at Time of Discharge Medication Sig Dispensed Refills Start Date End Date Psyllium Seed-Sucrose (0) Powder Take by mouth. [...] cetirizine (ZYRTEC) 10 mg Tablet PRN 03/07/2019 amoxicillin-clavulanate (Augmentin) 875-125 mg tablet Take 1 tablet by mouth 2 times daily for 7 days. 14 tablet 10/16/2023 10/23/2023 methocarbamoL (Robaxin) 500 mg tablet Take 1 tablet by mouth 3 times daily. 30 tablet 10/04/2023 08/07/2024 documented as of this encounter H&P Notes * Kelly Miles MD - 10/16/2023 1:38 PM EST OTOLARYNGOLOGY - HEAD & NECK SURGERY INTERVAL H&P NOTE Name: Prasanna Yovany Ramonita Age/Sex: 53 y.o. male Attending: Raza Glasgow MD Hospital Day: 1 Interval History Please see clinic/scanned H&P dated 04/09. In brief, Prasanna Shipman presents today for bilateral balloon dilation of sinuses. There have been no changes to his history. Physical Exam Patient Vitals for the past 24 hrs: Temp Pulse Resp BP SpO2 O2 Device 10/16/23 1152 36.5 ??C (97.7 ??F) 83 20 (!) 153/105 98 % RA 10/16/23 1247 36.7 ??C (98.1 ??F) 71 20 (!) 130/97 99 % RA 10/16/23 1307 36.4 ??C (97.5 ??F) 77 18 (!) 135/98 98 % RA Gen: No acute distress, alert and answers questions appropriately CV: Regular rate Pulm: Unlabored breathing Abd: Abdomen soft and non-tender Ext: No peripheral edema ASSESSMENT & PLAN Plan for bilateral balloon dilation of sinuses. Consent signed, dated, placed in chart. Ok to proceed with scheduled operation. Kelly Miles MD, PGY5, Pager [phone] 10/16/23 1:40 PM ENT Team Pager: [phone] Associated attestation - Raza Glasgow MD - 10/16/2023 1:50 PM EST Treatment options were discussed including medical management and limited endoscopic sinus surgery.He is at an elevated risk for perioperative epistaxis in the setting of ITP and chronic thrombocytopenia. I appreciate his preoperative evaluation with hematology and recommendations for perioperative platelet transfusions. I reviewed that his risk is highest at the time of surgery as well as in the first several weeks after surgery in the setting of granulation tissue and the relatively vascularnature of the nasal cavity and sinuses. The risks, benefits and alternatives of balloon sinuplasty to dilate the natural ostia was reviewed with the patient. I reviewed this may theoretically reduce the risk of granulation tissue, crusting and postoperative epistaxis, however he remains at an elevated risk. The surgery was discussed in detail including risks and possible benefits. Risks discussedincluded but were not limited to bleeding, infection, septal perforation, damage to eye/vision, damage to brain, and cerebrospinal fluid leak. We also discussed the variable outcomes of surgery basedon underlying pathophysiology and the need to have realistic expectations. Questions answered. The patient verbalized understanding and would like to proceed with limited surgical intervention following preoperative platelet transfusion of 2 units. I, Dr. Glasgow, saw and examined this patient with Dr. Kelly Miles. I performed the procedure I reviewed the note above and made revisions as needed and I agree with the plan as stated above. Raza Glasgow M.D. [facility] Endoscopic Sinus & Skull Base Surgery Division of Otolaryngology - Head and Neck Surgery [facility] documented in this encounter Miscellaneous Notes * Op Note - Raza Glasgow MD - 10/16/2023 2:57 PM EST PATIENT NAME: Prasanna Shipman SERVICE: Otolaryngology SURGEON: Raza Glasgow MD OCCUPATIONAL THERAPY SPECIALIST SURGEONS: Kelly Miles MD ANESTHESIA: General endotracheal. PREOPERATIVE DIAGNOSIS: Chronic sinusitis, thrombocytopenia, history COVID-19, olfactory impairment POSTOPERATIVE DIAGNOSIS: Same PROCEDURE: Bilateral endoscopic balloon dilation of frontal sinuses, CPT 50658-43 Bilateral endoscopic balloon dilation of maxillary sinuses, CPT 75259-48 Outfracture of inferior turbinates bilateral, CPT 34011-13 Stereotactic computer-assisted navigational cranial extradural, CPT 40225 ESTIMATED BLOOD LOSS: 20 mL RETAINED ITEMS: None SPECIMENS: None COMPLICATIONS: None INDICATIONS: Prasanna Shipman is a 53 y.o. male who has failed medical therapy and presents today for surgical management. FINDINGS: Chronic sinusitis DESCRIPTION OF PROCEDURE: Prasanna Shipman was identified in the preoperative holding area, where the informed consent was reviewed, including a re-review of the risks, benefits and alternatives of the procedure to include bleeding, infection, injury to the eye/visual loss/double vision, cerebrospinal fluid (CSF) leak, tearing, altered smell and taste, recurrent symptoms, and need for further surgery. He is at an elevated risk for perioperative epistaxis in the setting of ITP and chronic thrombocytopenia. I appreciate his preoperative evaluation with hematology and recommendations for perioperative platelet transfusions.I reviewed that his risk is highest at the time of surgery as well as in the first several weeks after surgery in the setting of granulation tissue and the relatively vascular nature of the nasal cavity and sinuses. The risks, benefits and alternatives of balloon sinuplasty to dilate the natural ostia was reviewed with the patient. I reviewed this may theoretically reduce the risk of granulation tissue, crusting and postoperative epistaxis, however he remains at an elevated risk. The surgery was discussed in detail including risks and possible benefits. We also discussed the variable outcomesof surgery based on underlying pathophysiology and the need to have realistic expectations. Questions answered. The patient verbalized understanding and would like to proceed with limited surgical intervention following preoperative platelet transfusion of 2 units. The patient wished to proceed as scheduled. The patient was brought to the operative room by Anesthesia, laid supine on the operatingtable, general anesthesia was induced and the patient was intubated orotracheally. The patient was turned toward the surgeons, and a time-out was performed with all members of the surgical team present. The patient was prepped and draped in the standard fashion. Topical epinephrine was used to decongest the nose and was used throughout the case for hemostasis. The image guidance machine was brought into the field, registered and its accuracy verified. It was used throughout the case for confirmation of skull base and orbital anatomy. Vasoconstriction was performed then surgery commenced on the left as follows: The left inferior turbinate was hypertrophied and obstructing the airway, therefore it was outfractured with good result. Maxillary sinus balloon dilation was performed on the left side. Using the Acclarent balloon maxillary dilation system, the guide wire was advanced through the ethmoid infundibulum and passed into the maxillary sinus without resistance. Placement was confirmed with visualization of light in the face. The balloon was advanced over the wire and inflated to 12 joselyn. The balloon was deflated and the system removed. The maxillary sinus natural ostium was visualized with an angled endoscope. The sinus was irrigated with saline to remove inflammatory debris. The left frontal sinusotomy was then performed. Using the Acclarent frontal balloon dilation system, the guide wire was advanced through the frontal recess and passed into the frontal sinus without resistance. Placement was confirmed with visualization of light in the forehead. The balloon was advanced over the wire and inflated to 12 joselyn. The balloon was deflated and the system removed. The frontal sinus natural ostium was visualized with an angled endoscope. Confirmation of the frontal sinus proper was confirmed with image guidance system. The sinus was irrigated with saline to remove inflammatory debris. Attention was turned to the right side. The right inferior turbinate was hypertrophied and obstructing the airway, therefore it was outfractured with good result. Maxillary sinus balloon dilation wasperformed on the right side. Using the Acclarent maxillary balloon dilation system, the guide wire was advanced through the ethmoid infundibulum and passed into the maxillary sinus without resistance. Placement was confirmed with visualization of light in the face. The balloon was advanced over thewire and inflated to 12 joselyn. The balloon was deflated and the system removed. The maxillary sinus natural ostium was visualized with an angled endoscope. The sinus was irrigated with saline to removeinflammatory debris. The right frontal sinusotomy was then performed. Using the Acclarent frontal balloon dilation system, the guide wire was advanced through the frontal recess and passed into the frontal sinus without resistance. Placement was confirmed with visualization of light in the forehead. The balloon was advanced over the wire and inflated to 12 joselyn. The balloon was deflated and the system removed. The frontal sinus natural ostium was visualized with an angled endoscope. Confirmationof the frontal sinus proper was confirmed with image guidance system. The sinus was irrigated with saline to remove inflammatory debris. Hemostasis was confirmed. Absorbable FloSeal and PosiSep X dressing was placed bilaterally. There were no complications of the procedure. Dr. Glasgow was present and scrubbed for the entirety of the procedure. documented in this encounter Plan of Treatment Upcoming Encounters Date Type Department Care Team (Late st Contact Info) Description 01/28/2025 3:30 PM EDT Office [place] [address] Raza Glasgow MD [facility] [place] [address] documented as of this encounter Procedures Procedure Name Priority Date/Time Associated Diagnosis Comments MODIFIER,STEALTH 2,KINEVO Yes 10/16/2023 2:34 PM EST Chronic pansinusitis Thrombocytopenia Nasal obstruction Stereotactic Cptr Asstd Px Cranial, Extradural (33018) Yes 10/16/2023 2:34 PM EST Chronic pansinusitis Thrombocytopenia Nasal obstruction Fracture Nasal Inferior Turbinate Therapeutic (45657) Yes 10/16/2023 2:34 PM EST Chronic pansinusitis Thrombocytopenia Nasal obstruction Nasal/Sinus Endoscopy Surg W/Dilation Frontal Sinus (83861) Yes 10/16/2023 2:34 PM EST Chronic pansinusitis Thrombocytopenia Nasal obstruction Nasal/Sinus Endoscopy Surg W/Dilation Maxillary Sinus (56420) Yes 10/16/2023 2:34 PM EST Chronic pansinusitis Thrombocytopenia Nasal obstruction PREPARE PLATELETS, APHERESIS STAT 10/16/2023 1:55 PM EST HC PLATELET COUNT STAT 10/16/2023 1:1 3 PM EST TRANSFUSE 1 UNIT PLATELET PHERESIS Routine 10/16/2023 12:32 PM EST PREPARE PLATELETS, APHERESIS Routine 10/16/2023 11:35 AM EST NASAL/SINUS ENDOSCOPY,W/BALLOON DILATION OF FRONTAL SINUS OSTIUM Routine 10/16/2023 9:54 AM EST Chronic pansinusitis Thrombocytopenia Nasal obstruction NASAL/SINUS ENDOSCOPY,W/BALLOON DILATION OF MAXILLARY SINUS OSTIUM Routine 10/16/2023 9:54 AM EST Chronic pansinusitis Thrombocytopenia Nasal obstruction STEREOTACTIC COMPUTER-ASSTD NAVIGATIONAL CRANIAL EXTRADURAL Routine 10/16/2023 9:54 AM EST Chronic pansinusitis Thrombocytopenia Nasal obstruction TURBINATE, FRACTURE OF, THERAPEUTIC- MORRIS Routine 10/16/2023 9:54 AM EST Chronic pansinusitis Thrombocytopenia Nasal obstruction LAB SCAN 10/16/2023 12:00 AM EST documented in this encounter Results * Prepare Platelets, Apheresis (10/16/2023 1:55 PM EST) Dispensed? Yes [facility] Blood 10/16/2023 1:55 PM EST 10/16/2023 1:52 PM EST Narrative Resulting Agency Comment Spec In Lab April Bloom MD BLOOD BANK PRODUCT O RDERABLES [facility] [place] [address] * (ABNORMAL) Platelet count (10/16/2023 1:13 PM EST) Platelet 50(L) 145 - 357 x10(3)/mc L [facility] Immature Plt % 10.2(H) 0.0 - 7.4 % [facility] Comment: Limitation of the Immature Platelet Fraction (IPF)-May be less reliable when the platelet count is less than 69d982/uL due to statistical imprecision. The IPF value provides an assessment of the Bone Marrow production status. ??It is useful in differentiating Thrombocytopenia caused by platelet destruction/consumption versus decreased production. It also helps to determine the imminent release of platelets and can be therefore a helpful parameter in Chemotherapy and Bone marrow transplant patients. ELEVATED IPF value: ?? When the bone marrow is in a state of over production such as when increased destruction and consumption are the underlying issue. ?? When the marrow is recovering post chemotherapy or bone marrow transplant. LOW to NORMAL IPF value: ?? When the bone marrow in not responding and is in a decreased state of production. References: [employer] The Clinical Value of the Immature Platelet Fraction (IPF) in Cell Recovery Document Number [id number] 04/2011 [employer] The Role of the Immature Platelet Fraction (IPF) in the Differential Diagnosis of Thrombocytopenia, Document [id number] V003/16/14 P0514 Blood 10/16/2023 1:13 PM EST 10/16/2023 1:25 PM EST Narrative Resulting Agency Comment Spec In Lab April Bloom MD HEMATOLOGY ORDERABLE S [facility] [place] [address] * Transfuse 1 unit platelets, apheresis (10/16/2023 1:07 PM EST) Raza Glasgow MD NURSING TREATMENT OR DERABLES - BLOOD ADMIN * Transfuse 1 unit platelets, apheresis (10/16/2023 1:07 PM EST) Raza Glasgow MD NURSING TREATMENT OR DERABLES - BLOOD ADMIN * Prepare Platelets, Apheresis (10/16/2023 11:35 AM EST) Dispensed? Yes [facility] Blood 10/16/2023 11:3 5 AM EST 10/16/2023 11:40 AM EST Narrative Resulting Agency Comment Spec In Lab Raza Glasgow MD BLOOD BANK PRODUCT O RDERABLES [facility] [place] [address] * SCAN DOC: LAB (10/16/2023 12:00 AM EST) Narrative 10/16/2023 12:00 AM EST Ordered by an unspecified provider. Scanning Provider MEDIA MGR SCAN EXT O RDR/RSLT documented in this encounter Visit Diagnoses Diagnosis Chronic pansinusitis Other chronic sinusitis Thrombocytopenia Thrombocytopenia, unspecified Nasal obstruction Other diseases of nasal cavity and sinuses documented in this encounter Administered Medications Inactive Administered Medications - up to 3 most recent administrations Medication Order MAR Action Action Date Dose Rate Site acetaminophen (Tylenol) tablet 975 mg 975 mg, Oral, ONCE, 1 dose, On Sun10/16/23 at 1200, Maximum dose of acetaminophen is 4,000 mg from all sources in 24 hours. When ordered for pain, acetaminophen should be given even when other ordered pain medications are indicated. , Day of Surgery (Day of Procedure), Routine Given 10/16/2023 12:12 PM EST 975 mg fentaNYL (pf) (50 mcg/mL) multi-dose injection 25 mcg 25 mcg, Intravenous, EVERY 5 MIN PRN, Starting on Sun10/16/23 at 1558, Until Sun10/16/23 at 1644, Pain, Mild to moderate pain (1-5 out of 10), Hold for respiratory rate less than 10 per minute. Maximum dose 200 mcg over one hour, including OR administration. If ordered with HYDROmorphone or morphine, give HYDROmorphone or morphine first and use fentaNYL for breakthrough pain., PACU Recovery, Routine Given 10/16/2023 4:12 PM EST 25 mcg fentaNYL (pf) (50 mcg/mL) multi-dose injection 50 mcg 50 mcg, Intravenous, EVERY 5 MIN PRN, Starting on Sun10/16/23 at 1558, Until Sun10/16/23 at 1644, Pain, Moderate to severe pain (6-10 out of 10), Hold for respiratory rate less than 10 per minute. Maximum dose 200 mcg over one hour, including OR administration. If ordered with HYDROmorphone or morphine, give HYDROmorphone or morphine first and use fentaNYL for breakthrough pain., PACU Recovery, Routine Given 10/16/2023 4:31 PM EST 50 mcg oxymetazoline (Afrin) 0.05 % nasal spray 2 spray 2 spray, Each Nare, 2 TIMES DAILY, 6 doses, First dose on Sun10/16/23 at 2100, Last dose on Sun10/19/23 at 0900, Warehouse Distribution Manager recommended duration is 3 days., Routine documented in this encounter Active and Recently Administered Medications Times are shown in EST. Scheduled Medication Order 10/14/2023 10/15/2023 10/16/2023 acetaminophen (Tylenol) tablet 975 mg (COMPLETED) 975 mg, Oral, ONCE, 1 dose, On Sun10/16/23 at 1200, Maximum dose of acetaminophen is 4,000 mg from all sources in 24 hours. When ordered for pain, acetaminophen should be given even when other ordered pain medications are indicated. , Day of Surgery (Day of Procedure), Routine 1212 (Given - Provid er: Cassy Hendricks RN) oxymetazoline (Afrin) 0.05 % nasal spray 2 spray 2 spray, Each Nare, 2 TIMES DAILY, 6 doses, First dose on Sun10/16/23 at 2100, Last dose on Sun10/19/23 at 0900, Warehouse Distribution Manager recommended duration is 3 days., Routine PRN Medication Order 10/14/2023 10/15/2023 10/16/2023 EPINEPHrine (Adrenalin) nasal solution (CANCELED) PRN, Starting on Sun10/16/23 at 1445, Until Sun10/16/23 at 1904, Intra-Operative (Intra-Procedure), Routine 1445 (Given - Provid er: Raza Glasgow MD) fentaNYL (pf) (50 mcg/mL) multi-dose injection 25 mcg (CANCELED)(Linked Group 1) 25 mcg, Intravenous, EVERY 5 MIN PRN, Starting on Sun10/16/23 at 1558, Until Sun10/16/23 at 1644, Pain, Mild to moderate pain (1-5 out of 10), Hold for respiratory rate less than 10 per minute. Maximum dose 200 mcg over one hour, including OR administration. If ordered with HYDROmorphone or morphine, give HYDROmorphone or morphine first and use fentaNYL for breakthrough pain., PACU Recovery, Routine 1612 (Given - Provid er: Florencia Summers RN)1631 (See Alternative - Provider: Florencia Summers RN) fentaNYL (pf) (50 mcg/mL) multi-dose injection 50 mcg (CANCELED)(Linked Group 1) 50 mcg, Intravenous, EVERY 5 MIN PRN, Starting on Sun10/16/23 at 1558, Until Sun10/16/23 at 1644, Pain, Moderate to severe pain (6-10 out of 10), Hold for respiratory rate less than 10 per minute. Maximum dose 200 mcg over one hour, including OR administration. If ordered with HYDROmorphone or morphine, give HYDROmorphone or morphine first and use fentaNYL for breakthrough pain., PACU Recovery, Routine 1612 (See Alternativ e - Provider: Florencia Summers RN)1631 (Given - Provider: Florencia Summers RN) fluorescein (BioGlo) ophthalmic strip (CANCELED) PRN, Starting on Sun10/16/23 at 1446, Until Sun10/16/23 at 1904, Intra-Operative (Intra-Procedure), Routine 1446 (Given - Provid er: Raza Glasgow MD) Linked Groups Order Group 1: fentaNYL (pf) (50 mcg/mL) multi-dose injection 25 mcg (CANCELED)Jump to med 25 mcg, Intravenous, EVERY 5 MIN PRN, Starting on Sun10/16/23 at 1558, Until Sun10/16/23 at 1644, Pain, Mild to moderate pain (1-5 out of 10), Hold for respiratory rate less than 10 per minute. Maximum dose 200 mcg over one hour, including OR administration. If ordered with HYDROmorphone or morphine, give HYDROmorphone or morphine first and use fentaNYL for breakthrough pain., PACU Recovery, Routine Or fentaNYL (pf) (50 mcg/mL) multi-dose injection 50 mcg (CANCELED)Jump to med 50 mcg, Intravenous, EVERY 5 MIN PRN, Starting on Sun10/16/23 at 1558, Until Sun10/16/23 at 1644, Pain, Moderate to severe pain (6-10 out of 10), Hold for respiratory rate less than 10 per minute. Maximum dose 200 mcg over one hour, including OR administration. If ordered with HYDROmorphone or morphine, give HYDROmorphone or morphine first and use fentaNYL for breakthrough pain., PACU Recovery, Routine documented in this encounter Care Teams Double Spindle Shaper Operator Relationship Specialty Start Date End Date Marian Pierre MD [address] [place] [phone] PCP - General Family Medicine 08/15/22 documented as of this encounter
--- OUTSIDE RECORDS SUMMARY | 2024-10-27 11:23 | XMS_ITS | Encounter Summary ---
Author Organization [facility] Address [facility] [place] [address] Care Team Providers Care Outbound Supervisor Name Role Phone Marian Pierre MD Primary Care Provider [phone] Reason for Visit * Reason Comments Follow-up NXR LEFT BICEPS TE NDON REPAIR AND SHOULDER SCOPE Encounter Details Date Type Department Care Team (Late st Contact Info) Description 10/04/2023 1:30 PM EST Office [place] [address] [address] Flor PA [facility] [address] ORTHOPAED[place] [address] Acute pain of left shoulder Social History Tobacco Use Types Packs/Day Years [...] - Inhaled Oxygen Concentration - - Weight 98 kg (216 lb) 10/04/2023 2:01 PM EST Height 175.3 cm (5' 9) 10/04/2023 2:01 PM EST Body Mass Index 31.9 10/04/2023 2:01 PM EST documented in this encounter Progress Notes * Osiris Vicente PA - 10/04/2023 1:30 PM EST Patient Name: Prasanna Shipman AGE: 53 y.o. MR#: [id number] Date of Visit: 10/04/2023 Procedure: Left shoulder arthroscopic debridement, open distal clavicle excision, open subpectoral tenodesis. 08/13/2023 (Dr. Bennett) Chief Complaint: 7~ weeks S/P above procedure History of Present Illness: Mr. Shipman is a 53 y.o. male who presents s/p the above procedures for office follow up. Unfortunately, he is not doing well. He reports he is only sleeping about an hour per night due to shoulder pain. He states it feels someone is pulling on his arm and has a throbbing sensation at night. He locates most of the pain near the AC joint and lateral shoulder. His clavicleexcision site has improved in terms of pain. He feels only slight cramping at the biceps tenodesis site. He's tried Trazodone, Flexeril and now has turned to marijuana and alcohol to help him get to sleep. He's been going to physical therapy who has tried multiple modalities to help with his pain. 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 He denies fever/chills/SOB. He does have a a history of cellulitis following total hip replacement in 2019. He also has a history of ITP and has a plt transfusion scheduled next week for an upcoming ENT surgery with Dr. Glasgow (). Physical Exam: There were no vitals taken for this visit. General appearance: in no acute distress, alert, cooperative Psych: cooperative with exam, appropriate Head: normocephalic, atraumatic EENT: EOMI grossly intact Lungs: non-labored respirations Musculoskeletal: Inspection: incision site is healing well without erythema or drainage. Nylon sutures removed at previous visit. Cupping ecchymosis present. On surrounding skin. Palpation: skin is warm and dry, skin warmth similar on both shoulders. ROM/Strength: Shoulder ROM forward flexion to 160. Internal rotation to L5. Elbow ROM 0-120, supination/pronation 80/80. Able to activate deltoid. Finger spread 5/5 Orthopedic testing: deferred Neurovascular: sensation grossly intact to light touch of the upper extremity including axillary distribution, 2+ radial pulse Diagnostic Studies: No new images obtained today Assessment/Plan: Prasanna is a 53 y.o. male who presents s/p aforementioned procedure doing somewhat poorly. Given his pain is mostly at night and his incision site looks great, my suspicion for infection is somewhat low, however, I'd like to rule this out with ESR/CRP, CBC w diff today. If these labsare normal, I think it's reasonable to proceed with subacromial steroid injection. It's possible that residual inflammation is causing his discomfort. He should continue with physical therapy per protocol. Continue Tylenol if needed for pain relief. We will try Robaxin PRN for sleep in the meantime. He was in understanding and agreement with the plan. Questions solicited and answered. Prasanna understands to contact us if he has any other questions or concerns. Follow Up: 6 weeks without xray, potentially sooner for subacromial injection or pending labs MARIELA Arguello 10/04/2023 1:51 PM The above documentation was completed using [employer] voice recognition software. documented in this encounter Plan of Treatment Upcoming Encounters Date Type Department Care Team (Late st Contact Info) Description 01/28/2025 3:30 PM EDT Office [place] [address] Raza Glasgow MD [facility] [place] [address] documented as of this encounter Results * (ABNORMAL) CRP, acute inflammation (10/04/2023 2:55 PM EST) C-Reactive Protein 6.3(H) <=4.9 mg/L [facility] Blood 10/04/2023 2:55 PM EST 10/04/2023 3:02 PM EST Narrative Resulting Agency Comment Spec In Lab Devendra Bennett MD CHEMISTRY ORDERABLES Performing Organization Address City/[facility]/ZIP Co de Phone Number [facility] [place] [address] * Sedimentation rate (10/04/2023 2:55 PM EST) Sedimentation Rate Automated 6 2 - 37 mm/hr [facility] Comment: Effective October 15, 2019 new capillary photometric technology has resulted in a change in reference ranges. It is recommended that each ESR result be reviewed with its own age appropriate reference range. Blood 10/04/2023 2:55 PM EST 10/04/2023 3:02 PM EST Narrative Resulting Agency Comment Spec In Lab Devendra Bennett MD HEMATOLOGY ORDERABLE S Performing Organization Address [facility] [[email or web address]] Co de Phone Number [facility] [place] [address] documented in this encounter Visit Diagnoses Diagnosis Acute pain of left shoulder documented in this encounter Care Teams Outbound Supervisor Relationship Specialty Start Date End Date Marian Pierre MD [address] [place] [id number] PCP - General Family Medicine 08/15/22 documented as of this encounter
--- OUTSIDE RECORDS SUMMARY | 2024-10-27 11:23 | XMS_ITS | Encounter Summary ---
Author Organization [facility] [address] Care Team Providers Care Core Winder Machine Operator Name Role Phone Marian Pierre MD Primary Care Provider Encounter Details Date Type Department Care Team (Latest Contact Info) Description 08/30/2023 Travel Social History Tobacco Use Types Packs/Day [...] 3:30 PM EDT Office [place] [address] Raza Glasgow MD [facility] [place] [address] documented as of this encounter Visit Diagnoses Not on filedocumented in this encounter Care Teams Core Winder Machine Operator Relationship Specialty Start Date End Date Marian Pierre MD [address] [place] [phone] PCP - General Family Medicine 08/15/22 documented as of this encounter
--- OUTSIDE RECORDS SUMMARY | 2024-10-27 11:23 | XMS_ITS | Encounter Summary ---
Author Organization [facility] Address [facility] [place] [address] Care Team Providers Care Solar Energy System Installer Name Role Phone Marian Pierre MD Primary Care Provider [phone] Reason for Visit * Reason Onset Date Comments Results 10/05/2023 Encounter Details Date Type Department Care Team (Late st Contact Info) Description 10/05/2023 [place] [address] Osiris Vicente PA [facility] DR ORTHOPAED[place] [address] Results Social History Tobacco Use Types Packs/Day Years [...] encounter Miscellaneous Notes * Telephone Encounter - Alie Elaine - 10/09/2023 4:09 PM EST Scheduled. * Telephone Encounter - Osiris Vicente PA - 10/05/2023 2:49 PM EST I called to provide Prasanna his lab results which were reassuring that he does not have an infection in his shoulder. We discussed that it would be appropriate to try a subacromial steroid injection tosee if lingering inflammation is the cause of his pain. He was agreeable to this plan and would like to set up an appointment for subacromial injection on the same day as another appointment (10/12). documented in this encounter Plan of Treatment Upcoming Encounters Date Type Department Care Team (Late st Contact Info) Description 01/28/2025 3:30 PM EDT Office [place] [address] Raza Glasgow MD [facility] [place] [address] documented as of this encounter Visit Diagnoses Not on filedocumented in this encounter Care Teams Solar Energy System Installer Relationship Specialty Start Date End Date Marian Pierre MD [address] [place] [address] [place] [address] PCP - General Family Medicine 08/15/22 documented as of this encounter
--- OUTSIDE RECORDS SUMMARY | 2024-10-27 11:23 | XMS_ITS | Encounter Summary ---
Author Organization [facility] [place] [address] Care Team Providers Care Aluminizer Name Role Phone Marian Pierre MD Primary Care Provider [phone] Encounter Details Date Type Department Care Team (Late st Contact Info) Description 11/26/2023 Orders Only [place]ematology [place] [address] Norma Garrido APRN [facility] DR HEMATOLOGY [place] [address] Social History Tobacco Use Types Packs/Day Years Used Date Smoking Tobacco: Never Smokeless Tobacco: Never Alcohol Use Standard Drinks/Week Comments Not Currently 0 (1 standard drink = 0.6 oz pur e alcohol) once a month [facility] Inpatient Questions Answer Date Recorded Does Anyone [...] 3:30 PM EDT Office [place] [address] Raza Glasgow MD [facility] [place] [address] documented as of this encounter Visit Diagnoses Not on filedocumented in this encounter Care Teams Aluminizer Relationship Specialty Start Date End Date Marian Pierre MD [address] [place] [phone] PCP - General Family Medicine 08/15/22 documented as of this encounter
--- OUTSIDE RECORDS SUMMARY | 2024-10-27 11:23 | XMS_ITS | Encounter Summary ---
Author Organization [facility] [place] [address] Care Team Providers Care Financial Sales Manager Name Role Phone Marian Pierre MD Primary Care Provider [phone] Encounter Details Date Type Department Care Team (Late st Contact Info) Description 09/18/2023 [place] [phone] Kurt Tyler MD [facility] [place] [address] Social History Tobacco Use Types Packs/Day Years [...] encounter Miscellaneous Notes * Telephone Encounter - Kurt Tyler MD - 09/18/2023 4:37 PM EST I left a voicemail for patient with regards to his question about going forward with a cardiac catheterization (and then also discussed pt with Dr Ro). Unless there has been a significant progression of his symptoms there should be no urgency for considering a cardiac catheterization. A possible revascularization procedure in the setting of thrombocytopenia has an increased risk of bleeding,particularly in the setting of dual antiplatelet therapy after coronary stenting but likely also just with the required aspirin after bypass surgery. It is not likely that we would improve his long-term prognosis by an interventional procedure at this time. Continuation of aggressive risk factor modification with lipid-lowering therapy (statin) seems to be the best approach at this point and treats all vessels. Looking forward to following up with Mr. Shipman in clinic. documented in this encounter Plan of Treatment Upcoming Encounters Date Type Department Care Team (Late st Contact Info) Description 01/28/2025 3:30 PM EDT Office [place] [address] Raza Glasgow MD [facility] [place] [address] documented as of this encounter Visit Diagnoses Not on filedocumented in this encounter Care Teams Financial Sales Manager Relationship Specialty Start Date End Date Marian Pierre MD [address] [place] [id number] PCP - General Family Medicine 08/15/22 documented as of this encounter
--- OUTSIDE RECORDS SUMMARY | 2024-10-27 11:23 | XMS_ITS | Encounter Summary ---
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 CHAIR Devendra Hussein MD [facility] [place] [address] [facility] Referral ID Status Reason Start Date Expiration Date Visits Re quested Visits Authorized [id number] 1 1 Encounter Details Date Type Department Care Team (Latest Contact Info) Description 08/13/2023 11:55 AM EDT - 08/14/2023 11:07 AM EDT Hospital Encounter [place] [id number] Devendra Bennett MD [facility] [place] [address] Thrombocytopenia; Superior glenoid labrum lesion of left shoulder, initial encounter Discharge Disposition: Home Social History Tobacco Use [...] Sign Reading Time Taken Comments Blood Pressure 132/81 08/14/2023 5:13 AM EDT Pulse 72 08/13/2023 7:00 PM EDT Temperature 36.7 ??C (98.1 ??F) 08/14/2023 5:13 AM ED T Respiratory Rate 18 08/14/2023 5:13 AM EDT Oxygen Saturation 96% 08/14/2023 5:13 AM EDT Inhaled Oxygen Concentration - - Weight 101.1 kg (222 lb 14.4 oz) 08/13/2023 1:08 PM EDT Height 175.3 cm (5' 9) 08/13/2023 1:08 PM EDT Body Mass Index 32.92 08/13/2023 1:08 PM EDT documented in this encounter Discharge Summaries * Daphne Kearney, NATIONAL RECRUITER - 08/14/2023 10:01 AM EDT Images from the original note were not included. Discharge Summary Patient Name: Prasanna Shipman Patient Age: 53 y.o. Language: Ukrainian Race: White Ethnicity: Not nor Admit date: 08/13/2023 Discharge date and time: 08/14/2023 Attending Physician: Devendra Bennett MD Discharge Physician: Devendra Bennett MD Follow-up Recommendations for Providers: See discharge instructions for additional details. Future Appointments Date Time Provider Department Center 08/30/2023 2:00 PM Mayo Ro MD [facility] PULM [facility] 08/30/2023 4:00 PM Hattie Flor PA [facility] ORTH 3A [facility] 10/22/2023 8:00 AM Raza Glasgow MD [facility] PRESTON [facility] Inpatient Provider Contact Information: Devendra Bennett MD Orthopedics: [phone] After hours and weekends, call [facility] Drywall Application Supervisor, , and have the Orthopedic resident paged. Discharge Diagnoses (Hospital Problems) and Secondary Diagnoses (Chronic Problems): Active Hospital Problems Diagnosis s/p L shoulder distal clavicle excision, arthroscopic debridement, biceps tenodesis 08/13/23 Dr. Bennett Resolved Hospital Problems No resolved problems to display. Active Non-Hospital Problems Diagnosis Mild coronary artery disease Chest pressure Pure hypertriglyceridemia Right buttock pain Spleen enlarged Multiple lipomas Obesity Thrombocytopenia Operations/Major Procedures: 08/13/2023 Surgeon(s) and Role: * Devendra Bennett MD - Primary * Mary Lieberman MD - Resident - Assisting Procedure(s): TENODESIS, BICEPS TENDON (DISTAL) (WRVU 8.08) ARTHROSCOPY SHOULDER DEBRIDEMENT EXTENSIVE (WRVU 7.98) MODIFIER [facility] History of Presentation (as written in pre op notes): Prasanna Shipman is a 53 y.o. male who presents with calcific tendinitis of the left supraspinatus trina left shoulder SLAP tear. We previously discussed operative versus nonoperative management in detail. He does feel strongly that he like to move forward with surgery. We discussed that surgery wouldlikely make him better but not perfect. Surgery for him will be an arthroscopic rotator cuff debridement of calcium with possible rotator cuff repair. Additionally we will evaluate his biceps and complete a subpectoral biceps tenodesis. We discussed her primary goal be pain relief and increased functionality. Risk of surgery including pain, bleeding, infection, retear, ongoing symptoms, residual calcium, need for further surgery, cardiopulmonary complications, anesthesia reactions, even among others were discussed. After considering the risk and benefits of surgery, the patient would like to move forward with the procedure. Consent was signed in the office today. We will move forward with surgery as scheduled. Of note, the patient does have thrombocytopenia. We discussed that this could increase his risk of bleeding. We will have him come in and get a CBC on the morning of surgery. If necessary we will give him a platelet infusion. Hospital Course: Prasanna Shipman was admitted for the above diagnosis and surgical intervention. There were no intraoperative complications. Patient began rehab on POD#1 with non-weight bearing left upper extremity in a sling. POD#1 the patient was started on oral pain medications and was comfortable. POD#1 patient was voiding spontaneously in good amounts. Wound inspected POD#1 and found to be benign. Patient did not have a bowel movement prior to discharge but was passing flatus and taking PO without difficulty. By POD#1 the patient was medically stable and was cleared for safe discharge by PT to home. OF NOTE: - Patient received 1 unit of platelets post operatively for history of Thrombocytopenia. Evening ofPOD#0 patient platelets 29 (down from 33 pre op), Hematology curbsided. Repeat Platelets 38, POD#1 platelets 45. Vital Signs at Discharge: Weight: Wt Readings from Last 1 Encounters: 08/13/23 101.1 kg (222 lb 14.4 oz) Height: Ht Readings from Last 1 Encounters: 08/13/23 175.3 cm (5' 9) HC: HC Readings from Last 1 Encounters: No data found for HC BMI: Body mass index is 32.92 kg/m??. Last value Range last 24 hrs Temperature Temp: 36.7 ??C (98.1 ??F) Temp: [36.2 ??C (97.2 ??F)-36.9 ??C (98.4 ??F)] Heart Rate Heart Rate: 72 Heart Rate: [68-85] Blood Pressure BP: 132/81 BP: (124-161)/(62-94) Respiratory Rate Resp: 18 Resp: [16-24] SpO2 SpO2: 96 % SpO2: [93 %-100 %] Art BP BP (Arterial Line): 132/98 BP (Arterial Line): (132-137)/(91-98) Functional and Cognitive Status: Patient mobilizing with standby assistance and sling, cognitively intact at baseline mental status at time of discharge. Important Lab Data: Last 3 wbc, hgb, hct plt Recent Labs 08/14/23 0630 08/14/2311808/13/23 1819 WBC 10.3* 8.3 4.8 HGB 14.7 15.4 15.0 HCT 42.1 44.0 43.4 PLATELET 45* 38* 29* Last 3 Lytes Recent Labs 08/14/2311802/21/23 0953 NA 138 139 K 4.2 4.4 CL 102 102 CO2 21* 25 BUN 19 21* CREATININE 1.08 1.22 Last 3 LFTs Recent Labs 02/21/23 0953 AST 17 ALT 39 ALKPHOS 88 BILITOT 0.4 Last Ca, Mg, Phos Recent Labs 08/14/23 0119 CALCIUM 9.3 Last 3 Coags No results for input(s): PT, INR, PTT in the last 168 hours. Last 3 ProBNP, Trop, CK No results for input(s): CK, TROPONINT, PROBNP in the last 168 hours. Last 3 Lipids Recent Labs 07/04/23 1340 03/30/23 0759 CHLPL 119 165 HDL 33 33 LDLCHOL 33 90 TRIG 263 211 Last 3 HgbA1C No results for input(s): HA1C in the last 7068 hours. Last CRP, SEDRATE Recent Labs 07/04/23 1340 CRP 2.4 Studies: SCAN DOC: TELEMETRY STRIPS Result Date: 08/13/2023 Ordered by an unspecified provider. XR Shoulder Left (Generic) Result Date: 08/06/2023 EXAMINATION: XR SHOULDER LEFT (GENERIC) CLINICAL HISTORY: pain (as entered by ordering provider) TECHNIQUE: 4 views LEFT shoulder COMPARISON: Left shoulder MRI 05/28/2023 FINDINGS: There is no fracture or malalignment. There are a few small osteophytes of the acromioclavicular and glenohumeral joints. Amorphous calcific foci superior tendinitis of the supraspinatus tendon The included left lung isclear. 1. No acute fracture or dislocation. 2. Mild left shoulder osteoarthropathy. 3. Calcific tendinitisof the supraspinatus. I have personally reviewed the image(s) and the resident's interpretation andagree with the findings, Jim Holly MD at 08/06/2023 5:45 PM Thank you for letting us participate in the care of this patient. If you are a health care provider and have any questions regarding this report, please contact the number below. For patients who have questions please contact the health weekend caregiver that requested your imaging first. Electronically signed by: Jim Holly MD, [facility] ([phone]), at 08/06/2023 5:45 PM Pending Studies and Lab Data at Discharge: * No orders in the log * Transfusions: 08/13/2023- 1 unit Platelets Discharge Conditions/Prognosis: Stable, awake, and alert. Mobilizing as noted above, pain controlled on oral medications. Discharge to: Home Updated Allergies/ADRs: Allergies Allergen Reactions Pollen, Micronized Itching Watery eyes and sneezing Immunizations Given this Hospitalization: Immunization History Administered Date(s) Administered Influenza Vaccine PF, Quadrivalent 08/28/2012 Pfizer Covid-19 (Purple Cap) Vaccine (12yrs+) 03/24/2021, 04/14/2021, 10/21/2021 Pfizer Covid-19 Bivalent 12Yrs+ (Tapia Cap 30mcg) 09/01/2022 Td Vaccine, Absorbed, PF, Adult 11/05/2007, 09/18/2017 Tdap Vaccine 09/18/2017 Zoster, Recombinant 09/29/2022, 01/19/2023 Discharge Medications: Your Medications New Medications Dose Details oxyCODONE 5 mg tablet Commonly known as: Roxicodone Take 1 tablet by mouth every 4 hours as needed for Pain. 5 mg Quantity: 42 tablet Refills: 0 senna-docusate 8.6-50 mg Tablet Commonly known as: Pericolace Take 2 tablets by mouth 2 times daily as needed for Constipation for up to 30 days. 2 tablet Refills: 0 Continued medications, unchanged Dose Details acetaminophen 500 mg tablet Commonly known as: Tylenol Take 1,000 mg by mouth every 6 hours as needed for Pain. 1,000 mg Refills: 0 budesonide 0.5 mg/2 mL Suspension for Nebulization Commonly known as: Pulmicort MIX 1 RESPULE WITH 240 ML (8 OZ) SALINE IN IRRIGATION BOTTLE. IRRIGATE EACH NOSTRIL TWICE DAILY DIRECTED Refills: 0 cetirizine 10 mg tablet Commonly known as: ZyrTEC PRN Refills: 0 multivitamin Tablet, Chewable Take by mouth. Refills: [address] capsule Commonly known as: PriLOSEC Take 40 mg by mouth daily. 40 mg Refills: 0 pramipexole 0.5 mg tablet Commonly known as: Mirapex Take 0.5 mg by mouth nightly. 0.5 mg Refills: 0 rosuvastatin 20 mg tablet Commonly known as: Crestor Take 0.5 tablets by mouth daily. 10 mg Quantity: 45 tablet Refills: 3 Smoking Status at Discharge: Social History Tobacco Use Smoking Status Never Smokeless Tobacco Never Instructions for Rehab Providers or PCP: See below Instructions Given to Patient at Discharge: Patient Instructions Discharge Instructions for Subacromial Decompression with biceps tenodesis Pain Medication Protocol: Oxycodone 5 mg every 4 hours as needed. Take this medication with a small amount of food to help prevent nausea. This medication is a short acting narcotic pain medication. Mgdi-pyg-yxcogme Tylenol (acetaminophen) should be taken in addition to narcotic. This will allow the narcotic to work more effectively, and may make it easier to discontinue the narcotic sooner. Follow the instructions on the Tylenol package for dosage and frequency. Do not exceed 3000mg acetaminophen per day. PLEASE DO NOT TAKE ANY NSAIDS (ibuprofen, Aleve, etc.) UNTIL INSTRUCTED TO DO SO BY YOUR SURGEON Anti-Coagulation Plan: 1) None needed Post-operative constipation: Constipation is common after surgery. Drinking plenty of water is important in helping to prevent this. An gagv-svv-bgjqwji stool softener can also help prevent or treat constipation. Colace 100mg tablets can be obtained at most pharmacies and can be taken 2 - 3 times a day. The pain medication may also cause nausea. If you have significant nausea, we can provide a prescription for an anti-nausea medication. Cryotherapy: Ice is a highly effective anti-inflammatory in the postoperative period. It helps reduce inflammation and pain. Apply an ice pack to the surgical area for 20-30 minutes every 1-[address] ice directlyon the skin as this can cause frostbite; place a towel/rag between the ice and skin. Please use ice as much as possible in the first 72 hours. You may continue to use ice after this periodically throughout the day, but it does not have to be as frequent as the first 72 hours. Dressing: Your dressing can be removed 7 days after surgery. Some leaking of fluid or blood may occur on the dressing and this is expected. Excessive drainage or bleeding is not expected and you should contactour office. Keep the incisions covered with clean dressings until you stop draining. Once you stop draining you do not need a bandage, but you should keep the steri strips in place until your post opappt in 10-14 days. Showering: You may shower after 72 hours, but you should not soak or scrub hard over the area. Sling: At the completion of your shoulder surgery, your arm will be placed in a sling for comfort and immobilization. You should wear the sling multimedia services manager except to perform elbow and wrist exercises, change clothes and bathe for the first 7 days post op. After you are able to wean from sling and usefor comfort as needed. Driving: You cannot drive while on narcotic pain medications, and should not drive for the entire time you are in your sling. Activities: Starting on the day after surgery, you should perform these exercises to avoid stiffness. Perform 10 cycles 4 times a day unless otherwise instructed, you may remove your arm from the sling to perform these exercises. Biceps tenodesis: avoid resisted elbow flexion for 6 weeks post op. Shoulder Pendulums: Lean over a table as shown, supported by the uninvolved arm. Allow your involved arm to hang freely. Use trunk movement to gently swing arm in circles, side to side, and front to back. 2. Wrist Range of Motion: Please support involved side with the non-involved side to perform these exercises if you do not have a table. A. Supination/pronation B. Circles C. Flexion/extension D. Ulnar/radial deviation. A. B. C. D. 3. Passive elbow flexion/extension: Begin with arm straight, grasp involved side wrist and move elbow through available range and return to start position. Your non-involved arm should be doing the lifting. Call our office if you develop: Fever greater than 100.5 Severe nausea or vomiting Increasing pain that is not controlled by pain medications Increasing redness, swelling, or drainage from incisions Change in sensation Future Appointments Date Time Provider Department Center 08/30/2023 2:00 PM Mayo Ro MD [facility] PULM [facility] 08/30/2023 4:00 PM Hattie Flor PA [facility] ORTH 3A [facility] 10/22/2023 8:00 AM Raza Glasgow MD [facility] PRESTON [facility] If you have questions or concerns please contact our [facility] office Sunday through Sunday, 8 AM - 5 PM, at . If it is after 5 PM or on the weekend, please call and ask to speak with the Orthopedic resident on-call. General Instructions None Future Appointments and Orders Future Appointments and Orders Future Appointments Provider Department Dept Phone 08/30/2023 2:00 PM Mayo Ro MD Pulmonology at [facility] Arrive at: [place] [facility] [facility] [address] [phone] 08/30/2023 4:00 PM Hattie Flor PA Orthopaedics at [facility] Arrive at: [facility] [address] [phone] 10/22/2023 8:00 AM Raza Glasgow MD Otolaryngology at [facility] Arrive at: [place] [facility] [facility] [address] [phone] Please dispose of unused excess opioids before your appointment or bring them with you to the appointment and we will help you dispose of them correctly. Future Orders Complete By Expires Type and Screen Future Surgery, [facility] SAME DAY PROGRAM ONLY) [[id number] Custom] 08/09/2023 02/08/2024 Process Instructions: This test is intended ONLY for patients with upcoming surgery for testing prior to the day of surgery obtained through the same day program (4V or SDP). For ALL OTHER PATIENTS, order a Type and Screen (ULE120) This order includes the physician order for an ABO Recheck if requested by the Blood Bank. Scheduling Instructions: Comments: Questions: Date of surgery: Primary Care Provider: Marian Pierre MD [phone] Discharge References/Attachments None documented in this encounter Discharge Instructions * Patient Instructions* Mary Lieberman MD - 08/13/2023 6:04 PM EDT Images from the original note were not included. Discharge Instructions for Subacromial Decompression with biceps tenodesis Pain Medication Protocol: Oxycodone 5 mg every 4 hours as needed. Take this medication with a small amount of food to help prevent nausea. This medication is a short acting narcotic pain medication. Kkfs-diy-cizxxpx Tylenol (acetaminophen) should be taken in addition to narcotic. This will allow the narcotic to work more effectively, and may make it easier to discontinue the narcotic sooner. Follow the instructions on the Tylenol package for dosage and frequency. Do not exceed 3000mg acetaminophen per day. PLEASE DO NOT TAKE ANY NSAIDS (ibuprofen, Aleve, etc.) UNTIL INSTRUCTED TO DO SO BY YOUR SURGEON Anti-Coagulation Plan: 1) None needed Post-operative constipation: Constipation is common after surgery. Drinking plenty of water is important in helping to prevent this. An spfu-rbt-yutmwvk stool softener can also help prevent or treat constipation. Colace 100mg tablets can be obtained at most pharmacies and can be taken 2 - 3 times a day. The pain medication may also cause nausea. If you have significant nausea, we can provide a prescription for an anti-nausea medication. Cryotherapy: Ice is a highly effective anti-inflammatory in the postoperative period. It helps reduce inflammation and pain. Apply an ice pack to the surgical area for 20-30 minutes every 1-[address] ice directlyon the skin as this can cause frostbite; place a towel/rag between the ice and skin. Please use ice as much as possible in the first 72 hours. You may continue to use ice after this periodically throughout the day, but it does not have to be as frequent as the first 72 hours. Dressing: Your dressing can be removed 7 days after surgery. Some leaking of fluid or blood may occur on the dressing and this is expected. Excessive drainage or bleeding is not expected and you should contactour office. Keep the incisions covered with clean dressings until you stop draining. Once you stop draining you do not need a bandage, but you should keep the steri strips in place until your post opappt in 10-14 days. Showering: You may shower after 72 hours, but you should not soak or scrub hard over the area. Sling: At the completion of your shoulder surgery, your arm will be placed in a sling for comfort and immobilization. You should wear the sling multimedia services manager except to perform elbow and wrist exercises, change clothes and bathe for the first 7 days post op. After you are able to wean from sling and usefor comfort as needed. Driving: You cannot drive while on narcotic pain medications, and should not drive for the entire time you are in your sling. Activities: Starting on the day after surgery, you should perform these exercises to avoid stiffness. Perform 10 cycles 4 times a day unless otherwise instructed, you may remove your arm from the sling to perform these exercises. Biceps tenodesis: avoid resisted elbow flexion for 6 weeks post op. Shoulder Pendulums: Lean over a table as shown, supported by the uninvolved arm. Allow your involved arm to hang freely. Use trunk movement to gently swing arm in circles, side to side, and front to back. 2. Wrist Range of Motion: Please support involved side with the non-involved side to perform these exercises if you do not have a table. A. Supination/pronation B. Circles C. Flexion/extension D. Ulnar/radial deviation. A. B. C. D. 3. Passive elbow flexion/extension: Begin with arm straight, grasp involved side wrist and move elbow through available range and return to start position. Your non-involved arm should be doing the lifting. Call our office if you develop: Fever greater than 100.5 Severe nausea or vomiting Increasing pain that is not controlled by pain medications Increasing redness, swelling, or drainage from incisions Change in sensation Future Appointments Date Time Provider Department Center 08/30/2023 2:00 PM Mayo Ro MD [facility] PULM [facility] 08/30/2023 4:00 PM Hattie Flor PA [facility] ORTH 3A [facility] 10/22/2023 8:00 AM Raza Glasgow MD [facility] PRESTON [facility] If you have questions or concerns please contact our [facility] office Sunday through Sunday, 8 AM - 5 PM, at . If it is after 5 PM or on the weekend, please call and ask to speak with the Orthopedic resident on-call. documented in this encounter Medications at Time [...] cetirizine (ZYRTEC) 10 mg Tablet PRN 03/07/2019 amoxicillin-clavulanat e (Augmentin) 875-125 mg tablet Take 1 tablet by mouth 2 times daily for 7 days. 14 tablet 10/16/2023 10/23/2023 buPROPion XL (Wellbutrin XL) 150 mg XL 24 hr tablet Take 150 mg by mouth every morning. 08/09/2023 10/04/2023 senna-docusate (Pericolace) 8.6-50 mg Tablet Take 2 tablets by mouth 2 times daily as needed for Constipation for up to 30 days. 0 08/14/2023 09/13/2023 oxyCODONE (Roxicodone) 5 mg tablet Take 1 tablet by mouth every 4 hours as needed for Pain. 42 tablet 08/14/2023 10/04/2023 budesonide (Pulmicort) 0.5 mg/2 mL Suspension for Nebulization MIX 1 RESPULE WITH 240 ML (8 OZ) SALINE IN IRRIGATION BOTTLE. IRRIGATE EACH NOSTRIL TWICE DAILY DIRECTED 07/10/2023 10/15/2023 pramipexole (Mirapex) 0.5 mg tablet Take 0.5 mg by mouth nightly. 10/04/2023 documented as of this encounter Progress Notes * Janie Rowe RN - 08/14/2023 10:45 AM EDT [facility] Short Stay Unit Discharge Note All relevant discharge milestones have been met by the patent. After Visit Summary and discharge teaching reviewed with the patient. IV access has been discontinued. All personal belongings have been returned to the patient/family upon their departure from the unit. Patient has been discharged to home The patient has been discharged without VNA services. * Mary Lieberman MD - 08/14/2023 5:57 AM EDT ORTHOPAEDIC SURGERY INPATIENT PROGRESS NOTE Patient Name: Prasanna Shipman Age: 53 y.o. Surgery/Issue: L shoulder arthroscopic debridement, biceps tenodesis Attending: Dr. Bennett Date of surgery: 08/13/2023 SUBJECTIVE / INTERVAL HISTORY: No acute events overnight. Afebrile, vitals stable. Pain well controlled. Post- op CBC returned witha platelet count of 29 from 33 pre-op, hematology engaged and rec continued observation with intervention if Plts continue drop on POD1. Patient denies chest pain, shortness of breath, nausea, vomiting, numbness/weakness. Tolerating PO and voiding. FOCUSED REVIEW OF SYSTEMS: as above. Active Hospital Problems Diagnosis s/p L shoulder distal clavicle excision, arthroscopic debridement, biceps tenodesis 08/13/23 Dr. Bennett Resolved Hospital Problems No resolved problems to display. Active Non-Hospital Problems Diagnosis Mild coronary artery disease Chest pressure Pure hypertriglyceridemia Right buttock pain Spleen enlarged Multiple lipomas Obesity Thrombocytopenia MEDICATIONS: budesonide (Pulmicort) nebulizer suspension 500 mcg loratadine (Claritin) tablet 10 mg pantoprazole EC (Protonix) tablet 40 mg pramipexole (Mirapex) tablet 0.5 mg rosuvastatin (Crestor) tablet 10 mg senna-docusate (Pericolace) 8.6-50 mg per tablet 2 tablet sodium chloride 0.9% infusion acetaminophen (Tylenol) tablet 975 mg oxyCODONE (Roxicodone) tablet 5 mg OR oxyCODONE (Roxicodone) tablet 10 mg OR oxyCODONE (Roxicodone) tablet 15 mg aspirin EC tablet 81 mg ondansetron (pf) (Zofran) (2 mg/mL) injection 4 mg EPINEPHrine (Adrenalin) (1 mg/mL) injection melatonin tablet 3 mg sodium chloride 0.9% 1,000 mL (08/13/23 1830) OBJECTIVE: Temp: [36.2 ??C (97.2 ??F)-36.9 ??C (98.4 ??F)] Heart Rate: [68-85] Resp: [16-24] BP: (124-161)/(62-94) Intake/Output Summary (Last 24 hours) at 08/14/2023 0557 Last data filed at 08/13/2023 2320 Gross per 24 hour Intake 760 ml Output 25 ml Net 735 ml Body mass index is 32.92 kg/m??. PE: General: awake/alert, responds to questions CV: RRR assessed peripherally Resp: Breathing comfortably on RA LUE: In sling, meplelex dressings in place and are c/d/i Sensation intact to light touch in ax nerve distribution, diminished due to underlying block Motor intact to wrist flexion/extension, digit flexion/extension Brisk capillary refill distally, fingers warm/well-perfused. Lab Results Component Value Date NA 138 08/14/2023 K 4.2 08/14/2023 CL 102 08/14/2023 CO2 21 (L) 08/14/2023 BUN 19 08/14/2023 CREATININE 1.08 08/14/2023 GLUCOSE Not Perf 08/14/2023 CALCIUM 9.3 08/14/2023 Lab Results Component Value Date WBC 8.3 08/14/2023 HGB 15.4 08/14/2023 HCT 44.0 08/14/2023 MCV 81.5 (L) 08/14/2023 PLATELET 38 (L) 08/14/2023 IMAGING: none ASSESSMENT / PLAN: Prasanna Shipman is a 53 y.o. male with history of immune thrombocytopenic purpura who is 1 Day Post-Op s/p L shoulder arthroscopic debridement, distal clavicle excision, biceps tenodesis. He received 1u platelets pre-operatively. Post-operative Plts initially dropped from 33 to 29, but have improved to 38 overnight. Will obtain CBC today, and per hematology recs will continue to observe if Plts continue to increase or stabilize. If stable can discharge, if Plts continue to dropwill discuss with hematology on further recs. Dispo planning today. Activity: NWB LUE in sling Closure: Resorbable sutures Dressing: Mepilex (remove 7 days) Anticoagulation: mechanical Consults: None Dispo: pending Plt levels Follow-up: scheduled Mary Lieberman MD 08/14/2023 Future Appointments Date Time Provider Department Center 08/30/2023 2:00 PM Mayo Ro MD [facility] PULM [facility] 08/30/2023 4:00 PM Hattie Flor PA [facility] ORTH 3A [facility] 10/22/2023 8:00 AM Raza Glasgow MD [facility] PRESTON [facility] * Neal Nevarez IV, DO - 08/13/2023 8:26 PM EDT ORTHOPAEDIC SURGERY INPATIENT PROGRESS NOTE Patient Name: Prasanna Shipman Age: 53 y.o. Surgery/Issue: L shoulder arthroscopic debridement, biceps tenodesis Attending: Dr. Bennett Date of surgery: 08/13/2023 SUBJECTIVE / INTERVAL HISTORY: Patient seen and examined in the short stay unit. His pain is well controlled and he is resting comfortably. Post-op CBC returned with a platelet count of 29 from 33 pre-op, will engage hematology for their recommendations. Patient denies chest pain, shortness of breath, nausea, vomiting, numbness/weakness. Of note, the patient received an interscalene block at ~340pm and continues to endorse numbness distal to the elbow. FOCUSED REVIEW OF SYSTEMS: as above. Active Hospital Problems Diagnosis s/p L shoulder distal clavicle excision, arthroscopic debridement, biceps tenodesis 08/13/23 Dr. Bennett Resolved Hospital Problems No resolved problems to display. Active Non-Hospital Problems Diagnosis Mild coronary artery disease Chest pressure Pure hypertriglyceridemia Right buttock pain Spleen enlarged Multiple lipomas Obesity Thrombocytopenia MEDICATIONS: budesonide (Pulmicort) nebulizer suspension 500 mcg [START ON 08/14/2023] loratadine (Claritin) tablet 10 mg [START ON 08/14/2023] pantoprazole EC (Protonix) tablet 40 mg pramipexole (Mirapex) tablet 0.5 mg [START ON 08/14/2023] rosuvastatin (Crestor) tablet 10 mg senna-docusate (Pericolace) 8.6-50 mg per tablet 2 tablet sodium chloride 0.9% infusion acetaminophen (Tylenol) tablet 975 mg oxyCODONE (Roxicodone) tablet 5 mg OR oxyCODONE (Roxicodone) tablet 10 mg OR oxyCODONE (Roxicodone) tablet 15 mg [START ON 08/14/2023] aspirin EC tablet 81 mg ondansetron (pf) (Zofran) (2 mg/mL) injection 4 mg EPINEPHrine (Adrenalin) (1 mg/mL) injection sodium chloride 0.9% OBJECTIVE: Temp: [36.2 ??C (97.2 ??F)-36.8 ??C (98.3 ??F)] Heart Rate: [68-85] Resp: [16-24] BP: (124-161)/(62-94) Intake/Output Summary (Last 24 hours) at 08/13/20232025 Last data filed at 08/13/2023 1728 Gross per 24 hour Intake 140 ml Output 25 ml Net 115 ml Body mass index is 32.92 kg/m??. PE: General: awake/alert, responds to questions CV: RRR assessed peripherally Resp: Breathing comfortably on RA LUE: In sling, meplelex dressings in place and are c/d/i Sensation intact to light touch in ax nerve distribution, no sensation in r/m/u distributions distal to the left elbow secondary to continued block effects Motor intact to wrist flexion/extension, digit flexion/extension Brisk capillary refill distally, fingers warm/well-perfused. Lab Results Component Value Date NA 139 02/21/2023 K 4.4 02/21/2023 CL 102 02/21/2023 CO2 25 02/21/2023 BUN 21 (H) 02/21/2023 CREATININE 1.22 02/21/2023 GLUCOSE 92 02/21/2023 CALCIUM 9.4 02/21/2023 Lab Results Component Value Date WBC 4.8 08/13/2023 HGB 15.0 08/13/2023 HCT 43.4 08/13/2023 MCV 81.7 (L) 08/13/2023 PLATELET 29 (L) 08/13/2023 IMAGING: none ASSESSMENT / PLAN: Prasanna Shipman is a 53 y.o. male with history of immune thrombocytopenic purpura who is Day of Surgery s/p L shoulder arthroscopic debridement and biceps tenodesis. He received 1u platelets pre-operatively with a post-operative drop to 29 (from 33), appreciate hematology input. Otherwise, doing well post-operatively and in minimal pain. Discharge pending heme evaluation and optimization of platelet levels. Activity: NWB LUE in sling Closure: Resorbable sutures Dressing: Mepelex (remove 7 days) Anticoagulation: mechanical Consults: None Dispo: pending Plt levels Follow-up: scheduled Neal Nevarez IV, 08/13/2023 Future Appointments Date Time Provider Department Center 08/30/2023 2:00 PM Mayo Ro MD [facility] PULM [facility] 08/30/2023 4:00 PM Hattie Flor PA [facility] ORTH 3A [facility] 10/22/2023 8:00 AM Raza Glasgow MD [facility] PRESTON [facility] * Karen Egan RN - 08/13/2023 7:04 PM EDT Handoff Report from RENNY Fournier. Pt denies pain. VSS. Able to move left fingers but states they are numb d/t nerve block. Left radial pulse 2+. Denies pain and nausea. * Irlanda Branch RN - 08/13/2023 6:03 PM EDT Pt arrived to PACU from OR in bed. Attached to monitors and alarms set appropriately. L shoulder dressings CDI, arm in sling. VSS. documented in this encounter H&P Notes * Mary Lieberman MD - 08/13/2023 3:27 PM EDT Patient Name: Prasanna Shipman Patient Age: 53 y.o. Birthdate: 1970 Admit date: 08/13/2023 Attending Physician: Devendra Bennett MD PRE-OPERATIVE HISTORY AND PHYSICAL for ADMISSION, OBSERVATION OR PROCEDURE Date of : 1970 Age: 53 y.o. PCP: Marian Pierre MD Presenting Diagnosis/Chief Complaint: L shoulder pain History of Present Illness: Prasanna Shipman is a 53 y.o. male who presents for pre-operative examination. Please see Dr. Bennett'snote for full details of the patient's specific problem. Patient denies any recent change in health, no recent illness. No CP, SOB, fevers, chills. PMHx: Patient Active Problem List Diagnosis Code Thrombocytopenia D69.6 Multiple lipomas D17.9 Obesity E66.9 Spleen enlarged R16.1 Right buttock pain M79.18 Chest pressure R07.89 Pure hypertriglyceridemia E78.1 Mild coronary artery disease I25.10 Past Medical History: Diagnosis Date Allergy asthma prostatitis restless leg Past Surgical History: Procedure Laterality Date CT GUIDED INJECTION SI JOINT 09/10/2018 CT Guided Injection SI Joint 09/10/2018 [facility] RAD CAT SCAN CT GUIDED NERVE BLOCK LUMBAR SINGLE LEVEL 08/05/2019 CT Guided Nerve Block Lumbar Single Level 08/05/2019 [facility] RAD CAT SCAN PRO UNLISTED PROCEDURE, MUSCULOSKELETAL SYSTEM, GENERAL Knee PRO UNLISTED PX UR SYS June, Vasectomy Home Medications: Medications Prior to Admission Medication Sig Dispense Refill Last Dose budesonide (Pulmicort) 0.5 mg/2 mL Suspension for Nebulization MIX 1 RESPULE WITH 240 ML (8 OZ) SALINE IN IRRIGATION BOTTLE. IRRIGATE EACH NOSTRIL TWICE DAILY DIRECTED 08/13/2023 rosuvastatin (Crestor) 20 mg tablet Take 0.5 tablets by mouth daily. 45 tablet 3 08/13/2023 pramipexole (Mirapex) 0.5 mg tablet Take 0.5 mg by mouth nightly. 08/12/2023 omeprazole (PriLOSEC) 40 mg Capsule, Delayed Release(E.C.) Take 40 mg by mouth daily. 08/13/2023 multivitamin Tablet, Chewable Take by mouth. 08/10/2023 cetirizine (ZYRTEC) 10 mg Tablet PRN 08/13/2023 acetaminophen (Tylenol) 500 mg Tablet Take 1,000 mg by mouth every 6 hours as needed for Pain. Morethan a month Allergies: Allergies Allergen Reactions Pollen, Micronized Itching Watery eyes and sneezing Family History: Non contributory Family History Problem Relation Age of Onset Hypertension Father High Blood Pressure Father Thyroid Disease Sister hashimotos Hypertension Brother Hyperlipidemia Brother Depression Maternal Uncle Review of Systems: as per HPI Physical Exam: VITALS: Temperature Temp: 36.4 ??C (97.5 ??F) Heart Rate Heart Rate: 85 Blood Pressure BP: (!) 137/91 Respiratory Rate Resp: 16 SpO2 SpO2: 99 % No intake/output data recorded. General: alert, appears stated age, and cooperative Pulmonary: equal, clear breath sounds bilaterally and no crepitus Cardiovascular: S1S2 present Assessment and Plan: 53 y.o. male with the above problem, plan to proceed to OR with Dr. Donald Boothe shoulder arthroscopy, debridement, possible rotator cuff repair and biceps tenodesis. Mary Lieberman MD PGY5 documented in this encounter Miscellaneous Notes * Brief Op Note - Mary Lieberman MD - 08/13/2023 6:06 PM EDT Brief Operative Note Patient Name: Prasanna Shipman : [id number] MR#: [id number] Case Date: 08/13/2023 Surgeon: Surgeon(s) and Role: * Devendra Bennett MD - Primary * Mary Lieberman MD - Resident - Assisting Preoperative diagnosis: Left shoulder SLAP lesion, calcific tendinopathy Postoperative diagnosis: same as above Procedure(s) (LRB): TENODESIS, BICEPS TENDON (DISTAL) (WRVU 8.08) (Left) ARTHROSCOPY SHOULDER DEBRIDEMENT EXTENSIVE (WRVU 7.98) (Left) [facility] (N/A) Anesthesia: General Findings: calcific deposits in supraspinatus tendon, high grade SLAP tear with anterior, posterior labral fraying, no significant chondral damage to the humeral head and glenoid Complications: None Estimated Blood Loss: 25 mL Specimens removed during surgery: None Fluids: Intraprocedure Crystalloid Total Output Blood Loss 25 mL Total Output 25 mL PRBCs: none (See Anesthesia Record/Report for Other Blood Products) Urine Output: (no urine output recorded) Drains: None Disposition: awakened from anesthesia, extubated and taken to the recovery room in a stable condition, having suffered no apparent untoward event. Condition: doing well without problems (Please see the Surgical Encounter Summary for any Implant and Specimen details pertinent to this patient.) Surgical Infection Prevention Bundle Used? N/A * Op Note - Devendra Bennett MD - 08/13/2023 4:29 PM EDT [facility] Operative Note Patient Name: Prasanna Shipman : [id number] MR#: [id number] Case Date: 08/13/2023 Surgeon: Surgeon(s) and Role: * Devendra Bennett MD - Primary * Mary Lieberman MD - Resident - Assisting Preoperative diagnosis: Left shoulder labral tear, calcific tendonitis, AC joint arthritis Postoperative diagnosis: Left shoulder labral tear, calcific tendonitis, AC joint arthritis Procedure(s) (LRB): TENODESIS,BICEPS TENDON (PROXIMAL) (WRVU 10.17) (Left) ARTHROSCOPY SHOULDER DEBRIDEMENT EXTENSIVE (WRVU 7.98) (Left) [facility] (N/A) CLAVICULECTOMY, PARTIAL (WRVU 7.39) (Left) Anesthesia: General Estimated Blood Loss: 25 mL Specimens removed during surgery: None Drains: * No LDAs found * Surgical Closure: Primary Closure - skin incision is completely closed without any wires, lindsay, drains or other devices Disposition: awakened from anesthesia, extubated and taken to the recovery room in a stable condition, having suffered no apparent untoward event. Condition: doing well without problems (Please see the Surgical Encounter Summary for any Implant and Specimen details pertinent to this patient.) HPI/Surgical Indications: The patient is a 53-year-old male who injured his left shoulder after a injury doing push-ups. I saw him in the office and we reviewed his MRI which did demonstrate a significant SLAP tear in addition to distal clavicle degenerative changes. Further, he did have a small calcific deposit in his rotator cuff. After Discussing conservative versus operative management, he felt strongly that he would like to move forward with surgical intervention. Procedure Description: Findings: Exam Under Anesthesia: Elevation: 160 External Rotation: 60 Internal Rotation in 90deg Abduction: 80 Diagnostic Arthroscopy Glenoid: Normal Humeral head: Normal Biceps: Normal Labrum: Type 2 SLAP Rotator Interval/Capsule: Hyptertrophic and synovitis Subscapularis: Normal Supraspinatus: Small bursal sided calcium deposit Infraspinatus: Normal Teres Minor: Normal Axillary Recess: Normal Subacromial Space: Normal Coracoacromial Ligament: Normal Acromion: No prominence Procedure: The patient was identified in the preoperative holding area where their declan and consent were confirmed. They were given a preoperative block by the anesthesia team. They were brought to the operating room and identified upon arrival. They were moved to the operating table and given general anesthesia. The patient was sat up into the beach chair position and their head was immobilized in a well-pa dded atkinson and foam face mask. All bony prominences were well padded. An exam under anesthesia wascompleted- please see results above. The arm was prepped with chlorohexidine, alcohol, and chloroprep before being draped in a sterile and usual fashion and placed into an arm atkinson. A timeout was held according to hospital protocol. The patient received pre-operative antibiotics. We started out marking out the palpable anatomy. We then prepared to move forward with our distal clavicle resection. We made a 3 cm incision perpendicular to the AC joint. We used cautery to achievehemostasis work down to the subcutaneous tissues. We right small flaps to define the deep fascial la uriel. We then incised longitudinally across the end of the distal clavicle. We raised full-thicknessflaps anteriorly and posteriorly before placing retractors. We then used an oscillating saw to cut a parallel resection from the end of the distal clavicle constantly approximately 1 cm of bone. We palpated this to ensure there was adequate and symmetric. We then used a rongeur and rasp to smooth down the cut edges. Hemostasis was obtained. Removed for closure. The wound was well irrigated. 0 Vicryl's were used to close the deep layer. 3-0 Vicryl used to close the subcutaneous tissues. A running 3-0 Monocryl and Dermabond were used to close the skin at the completion of the case. We then entered the shoulder joint with the arthroscope from a standard posterior portal approximately 2 cm medial and inferior to the posterior-lateral tip of the acromion. Next we created an anterior portal just lateral to the coracoid using a spinal needle for localization following by cannula placement. We completed a diagnostic arthroscopy with the results shown above. Of note the patient has significant type II SLAP tear necessitating biceps tenodesis. We released the biceps at its originusing cautery. We then debrided the anterior and superior labrum using a shaver and stabilized using cautery. There is hypertrophic tissue in the rotator interval and capsular layer which was debrided using cautery. Satisfied with this we went into the subacromial space. Within the subacromial space there was no evidence of inflammation whatsoever. We debrided mild bursa for visualization. We looked at the supraspinatus tendon were able to find an area that did have color changes consistent with underlying calcium. We used a spinal needle to investigate this further. We are able to release a small amount of chalky material and what appeared to be cloudy calcium like fluid. We then used the shaver to debride this area back to a stable base. Due to the lack of inflammation, and small size of the calcium deposit, I chose not to further debride this area as I didnot want to create a rotator cuff tear which would require repair. We then turned our attention to the subpectoral biceps tenodesis. We marked out a 4 cm incision straddling the inferior border of the pectoralis major tendon, just lateral to the axilla. We completedthis incision using a 15 blade scalpel. We then used cautery to achieve hemostasis and work down through the subcutaneous tissues. Retractors were placed. We used finger dissection to work up and under the pectoralis major tendon which was palpable. The deep fascial layer was then opened over the anterior aspect of the humerus. We were able to get a right angle around the biceps tendon and deliver it out of the wound. We then cleaned the synovium from the tendon as needed. A biceps whipstitch was passed through the tendon starting at the musculotendinous junction. We then passed the whipstitch through the biceps button in anticipation of the biceps tenodesis. We turned our attention to the bicipital groove. We used cautery to remove the soft tissue and a rasp to get down to a bleeding healing surface. We then drilled uni-cortically high in the groove in preparation for the button. The button was introduced into the intramedullary space. The button was released and flipped, and the tension slide technique was used to pull the biceps into place. One limb of the biceps whipstitch was then passed back through the tendon and tied firmly. We found that we had excellent tension of the biceps. We move forward with closure. The wound was well irrigated. The subcutaneous tissues were closed with 3-0 Vicryl in a layered fashion. The skin was closed with a 3-0 nylon in a horizontal mattress configuration. At this point we closed the portals as well using 3-0 nylons in a portal stitch configuration. Sterile dressings were placed. The patient was moved into a shoulder immobilizer. He is awake from anesthesia and taken the PACU recover. Surgical Infection Prevention Bundle Used? N/A Attestation: Case Date: 08/13/2023 I was present and I participated during the entire procedure (does not need to include opening and closing). Devendra Bennett MD 08/14/2023 documented in this encounter Plan of Treatment Upcoming Encounters Date Type Department Care Team (Late st Contact Info) Description 01/28/2025 3:30 PM EDT Office [place] [address] Raza Glasgow MD [facility] [place] [address] documented as of this encounter Procedures Procedure Name Priority Date/Time Associated Diagnosis Comments TENODESIS,BICEPS TENDON (PROXIMAL) Routine 08/14/2023 10:16 PM EDT CLAVICULECTOMY, PARTIAL Routine 08/14/2023 10:15 PM EDT HEMOGRAM Routine 08/14/2023 6:30 AM EDT DIFFERENTIAL, AUTOMATED Routine 08/14/2023 6:30 AM EDT CBC (WITH DIFF) Routine 08/14/2023 6:30 AM EDT HEMOGRAM Routine 08/14/2023 1:19 AM EDT DIFFERENTIAL, AUTOMATED Routine 08/14/2023 1:19 AM EDT CBC (WITH DIFF) Routine 08/14/2023 1:19 AM EDT BASIC METABOLIC PANEL Routine 08/14/2023 1:19 AM EDT HEMOGRAM STAT 08/13/2023 6:19 PM EDT DIFFERENTIAL, AUTOMATED STAT 08/13/2023 6:19 PM EDT CBC (WITH DIFF) STAT 08/13/2023 6:19 PM EDT Partial Removal, Clavicle ([id number]) 08/13/2023 3:57 PM EDT Left shoudler labral tear, calcific tendonitis [facility] 08/13/2023 3:57 PM EDT Left shoudler labral tear, calcific tendonitis Shldr Arthroscop, Exten Debride ([id number]) 08/13/2023 3:57 PM EDT Left shoudler labral tear, calcific tendonitis Repair Biceps Long Tendon ([id number]) 08/13/2023 3:57 PM EDT Left shoudler labral tear, calcific tendonitis TRANSFUSE 1 UNIT PLATELET PHERESIS Routine 08/13/2023 2:21 PM EDT PREPARE PLATELETS, APHERESIS Routine 08/13/2023 1:45 PM EDT TYPE AND SCREEN VALIDITY Routine 08/13/2023 12:05 PM EDT ABORH RECHECK STATUS Routine 08/13/2023 12:05 PM EDT SCAN, PERIPHERAL BLOOD STAT 08/13/2023 12:05 PM EDT HEMOGRAM STAT 08/13/2023 12:05 PM EDT Superior glenoid labrum lesion of left shoulder, initial encounter DIFFERENTIAL, AUTOMATED STAT 08/13/2023 12:05 PM EDT Superior glenoid labrum lesion of left shoulder, initial encounter ABO/RH TYPING Routine 08/13/2023 12:05 PM EDT Superior glenoid labrum lesion of left shoulder, initial encounter CBC (WITH DIFF) STAT 08/13/2023 12:05 PM EDT Superior glenoid labrum lesion of left shoulder, initial encounter ANTIBODY SCREEN Routine 08/13/2023 12:05 PM EDT Superior glenoid labrum lesion of left shoulder, initial encounter TYPE AND SCREEN ([facility]/ELIN) Routine 08/13/2023 12:05 PM EDT Superior glenoid labrum lesion of left shoulder, initial encounter ARTHROSCOPY SHOULDER DEBRIDEMENT EXTENSIVE Routine 08/13/2023 12:03 PM EDT LAB SCAN 08/13/2023 12:00 AM EDT IMPLANTABLE DEVICES SCAN 08/13/2023 12:00 AM EDT documented in this encounter Results * (ABNORMAL) Differential, Automated (08/14/2023 6:30 AM EDT) Neutrophil % 86.4 % [facility] Neutrophil Absolute 8.94(H) 1.70 - 6.10 x10(3)/mc L [facility] Lymph % 8.7 % [facility] Lymphocytes Abs 0.9 0.9 - 3.2 x10(3)/mc L [facility] Monocyte % 4.2 % [facility] Monocyte Abs 0.4 0.3 - 0.9 x10(3)/mc L [facility] Eos % 0.0 % [facility] Eosinophils Abs 0.0 0.0 - 0.4 x10(3)/mc L [facility] Basophil % 0.1 % [facility] Baso Absolute 0.0 0.0 - 0.1 x10(3)/mc L [facility] Immature Gran % 0.60 % [facility] Comment: Immature granulocytes(IG's)percentage and absolute count will include metamyelocytes, myelocytes, and promyelocytes. Blood smears from CBCs yielding IG's will be scanned manually for concordance. If this scan disagrees with the automated IG or if promyelocytes are noted, a manual differential will be performed. Immature Gran Absolute 0.06(H) 0.00 - 0.04 x10(3)/ L [facility] Blood 08/14/2023 6:30 AM EDT 08/14/2023 6:55 AM EDT Narrative Resulting Agency Comment Spec In Lab Mary Lieberman MD HEMATOLOGY ORDER JESUS [facility] [place] [address] * (ABNORMAL) Hemogram (08/14/2023 6:30 AM EDT) White Blood Cell 10.3(H) 4.0 - 9.5 x10(3)/[facility] Red Blood Cell 5.17 4.58 - 5.54 x10(6)/[facility] Hemoglobin 14.7 13.7 - 16.5 g/dL [facility] Hematocrit 42.1 40.5 - 48.5 % [facility] Mean Cell Volume 81.4(L) 82.9 - 93.1 fL [facility] Mean Cell Hemoglobin 28.4 27.5 - 32.1 pg [facility] Mean Cell Hemoglobin Concentration 34.9 32.0 - 35.7 g/dL [facility] Platelet 45(L) 145 - 357 x10(3)/[facility] LABORATORY RDW Standard Deviation 36.9 36.0 - 45.0 fL [facility] RDW coefficient of variation 12.4 11.4 - 13.8 % [facility] Mean Platelet Volume Not Measured 7.6 - 12.9 fL [facility] NRBC% auto 0.0 % [facility] NRBC Absolute 0.000 0.000 - 0.000 x10(3)/[facility] LABORATORY Blood 08/14/2023 6:30 AM EDT 08/14/2023 6:55 AM EDT Narrative Resulting Agency Comment Spec In Lab Mary Lieberman MD [place]EMATOLOG[place] [address] * (ABNORMAL) Differential, Automated (08/14/2023 1:19 AM EDT) Neutrophil % 87.6 % [facility] Neutrophil Absolute 7.27(H) 1.70 - 6.10 x10(3)/mc L [facility] Lymph % 10.2 % [facility] Lymphocytes Abs 0.8(L) 0.9 - 3.2 x10(3)/mc L [facility] Monocyte % 1.8 % [facility] Monocyte Abs 0.2(L) 0.3 - 0.9 x10(3)/mc L [facility] Eos % 0.1 % [facility] Eosinophils Abs 0.0 0.0 - 0.4 x10(3)/mc L [facility] Basophil % 0.1 % [facility] Baso Absolute 0.0 0.0 - 0.1 x10(3)/mc L [facility] Immature Gran % 0.20 % [facility] Comment: Immature granulocytes(IG's)percentage and absolute count will include metamyelocytes, myelocytes, and promyelocytes. Blood smears from CBCs yielding IG's will be scanned manually for concordance. If this scan disagrees with the automated IG or if promyelocytes are noted, a manual differential will be performed. Immature Gran Absolute 0.02 0.00 - 0.04 x10(3)/mc L [facility] Blood 08/14/2023 1:19 AM EDT 08/14/2023 2:35 AM EDT Narrative Resulting Agency Comment Spec In Lab Neal Nevarez IV, HEMATOLOGY ORDERABL ES Performing Organization Address City/[facility]/[place]IP [place] [address] * (ABNORMAL) Hemogram (08/14/2023 1:19 AM EDT) White Blood Cell 8.3 4.0 - 9.5 x10(3)/mc L [facility] Red Blood Cell 5.40 4.58 - 5.54 x10(6)/mc L [facility] Hemoglobin 15.4 13.7 - 16.5 g/dL [facility] Hematocrit 44.0 40.5 - 48.5 % [facility] Mean Cell Volume 81.5(L) 82.9 - 93.1 fL [facility] Mean Cell Hemoglobin 28.5 27.5 - 32.1 pg [facility] Mean Cell Hemoglobin Concentration 35.0 32.0 - 35.7 g/dL [facility] Platelet 38(L) 145 - 357 x10(3)/mc L [facility] RDW Standard Deviation 37.4 36.0 - 45.0 fL [facility] RDW coefficient of variation 12.7 11.4 - 13.8 % [facility] Mean Platelet Volume 14.0(H) 7.6 - 12.9 fL [facility] NRBC% auto 0.0 % [facility] NRBC Absolute 0.000 0.000 - 0.000 x10(3)/ L [facility] Blood 08/14/2023 1:19 AM EDT 08/14/2023 2:35 AM EDT Narrative Resulting Agency Comment Spec In Lab Neal Nevarez IV, HEMATOLOGY ORDERABL ES [facility] [place] [address] * (ABNORMAL) Basic Metabolic Panel (non-fasting) (08/14/2023 1:19 AM EDT) Glucose Not Perf 65 - 199 [facility] Comment: Add-on request. ??Sample too old to perform test. Diabetes: >=200 mg/dL plus symptoms Blood Urea Nitrogen 19 10 - 20 mg/dL [facility] Creatinine 1.08 0.80 - 1.50 mg/dL [facility] Sodium 138 135 - 145 mmol/L [facility] Potassium 4.2 3.5 - 5.0 mmol/L [facility] Comment: Please note: ??Patients with WBC >100,000 may have falsely elevated Potassium levels. ??For accurate Potassium quantification in these patients send serum separator tube (gold top) for subsequent determinations. ??Contact the Clinical Chemistry Laboratory if there are any questions. Chloride 102 98 - 107 mmol/L [facility] Carbon Dioxide 21(L) 22 - 31 mmol/L [facility] Anion Gap 15 5 - 15 mmol/L [facility] Calcium 9.3 8.5 - 10.5 mg/dL [facility] Est Glomerular Filtration Rate 83 >=60 mL/min/1. 73 m?? [facility] Comment: This patient's estimated GFR [...] mass and symptoms in addition to eGFR. Blood 08/14/2023 1:19 AM EDT 08/14/2023 2:35 AM EDT Narrative Resulting Agency Comment Spec In Lab Devendra Bennett MD CHEMISTRY ORDERABLES Performing Organization Address City/State/[facility] Co de Phone Number [facility] [place] [address] * (ABNORMAL) Differential, Automated (08/13/2023 6:19 PM EDT) Neutrophil % 67.6 % [facility] Neutrophil Absolute 3.24 1.70 - 6.10 x10(3)/mc L [facility] Lymph % 26.1 % [facility] Lymphocytes Abs 1.2 0.9 - 3.2 x10(3)/mc L [facility] Monocyte % 4.2 % [facility] Monocyte Abs 0.2(L) 0.3 - 0.9 x10(3)/mc L [facility] Eos % 1.3 % [facility] Eosinophils Abs 0.1 0.0 - 0.4 x10(3)/mc L [facility] Basophil % 0.4 % [facility] Baso Absolute 0.0 0.0 - 0.1 x10(3)/mc L [facility] Immature Gran % 0.40 % [facility] Comment: Immature granulocytes(IG's)percentage and absolute count will include metamyelocytes, myelocytes, and promyelocytes. Blood smears from CBCs yielding IG's will be scanned manually for concordance. If this scan disagrees with the automated IG or if promyelocytes are noted, a manual differential will be performed. Immature Gran Absolute 0.02 0.00 - 0.04 x10(3)/ L [facility] Blood 08/13/2023 6:19 PM EDT 08/13/2023 6:26 PM EDT Narrative Resulting Agency Comment Spec In Lab Neal Nevarez IV, HEMATOLOGY ORDERABL ES Performing Organization Address City/State/[facility] Co de Phone Number [facility] [place] [address] * (ABNORMAL) Hemogram (08/13/2023 6:19 PM EDT) White Blood Cell 4.8 4.0 - 9.5 x10(3)/mc L [facility] Red Blood Cell 5.31 4.58 - 5.54 x10(6)/ L [facility] Hemoglobin 15.0 13.7 - 16.5 g/dL [facility] Hematocrit 43.4 40.5 - 48.5 % [facility] Mean Cell Volume 81.7(L) 82.9 - 93.1 fL [facility] Mean Cell Hemoglobin 28.2 27.5 - 32.1 pg [facility] Mean Cell Hemoglobin Concentration 34.6 32.0 - 35.7 g/dL [facility] Platelet 29(L) 145 - 357 x10(3)/ L [facility] RDW Standard Deviation 38.2 36.0 - 45.0 fL [facility] RDW coefficient of variation 12.9 11.4 - 13.8 % [facility] Mean Platelet Volume Not Measured 7.6 - 12.9 fL [facility] NRBC% auto 0.0 % [facility] NRBC Absolute 0.000 0.000 - 0.000 x10(3)/mc L [facility] Blood 08/13/2023 6:19 PM EDT 08/13/2023 6:26 PM EDT Narrative Resulting Agency Comment Spec In Lab Neal Nevarez IV, DO HEMATOLOGY ORDERABL ES Performing Organization Address City/[facility] [place] [address] * Transfuse 1 unit platelets, apheresis (08/13/2023 3:50 PM EDT) Devendra Bennett MD NURSING TREATMENT OR DERABLES - BLOOD ADMIN * Transfuse 1 unit platelets, apheresis (08/13/2023 3:50 PM EDT) Devendra Bennett MD NURSING TREATMENT OR DERABLES - BLOOD ADMIN * Prepare Platelets, Apheresis (08/13/2023 1:45 PM EDT) Dispensed? Yes [facility] Blood 08/13/2023 1:45 PM EDT 08/13/2023 1:45 PM EDT Narrative Resulting Agency Comment Spec In Lab Devendra Bennett MD BLOOD BANK PRODUCT O RDERABLES Performing Organization Address City/[facility]/[place] [address] * Type and Screen Validity (08/13/2023 12:05 PM EDT) T&S only valid at [facility] LABORATORY Comment:This Type and Screen result is only valid at the [facility] Blood 08/13/2023 12:0 5 PM EDT 08/13/2023 12:08 PM EDT Narrative Resulting Agency Comment Spec In Lab Devendra Bennett MD BLOOD BANK LAB ORDER JESUS Performing Organization Address City/[facility]/ZIP Co de Phone Number [facility] [place] [place] [address] * Scan, Peripheral Blood (08/13/2023 12:05 PM EDT) Pathologist [facility] Plat estimate Decreased [facility] RBC Morphology Abnormal [facility] Microcyte 1-5 /HPF [facility] Ovalocytes 1-5 /HPF [facility] ITAL LABORATORY Darin Cells 1-5 /HPF [facility] Blood 08/13/2023 12:0 5 PM EDT 08/13/2023 12:14 PM EDT Narrative Resulting Agency Comment Spec In Lab Devendra Bennett MD HEMATOLOGY ORDERABLE S Performing Organization Address City/[facility]/ZIP Co de Phone Number [facility] [place] [place] [address] * ABORH Recheck Status (08/13/2023 12:05 PM EDT) [facility] ABORH Type Recheck Completed [facility] Blood 08/13/2023 12:0 5 PM EDT 08/13/2023 12:08 PM EDT Narrative Resulting Agency Comment Spec In Lab Devendra Bennett MD BLOOD BANK LAB ORDER JESUS Performing Organization Address [facility] Co de Phone Number [facility] [place] [address] * Differential, Automated (08/13/2023 12:05 PM EDT) [facility] Neutrophil % 49.5 % [facility] Neutrophil Absolute 2.43 1.70 - 6.10 x10(3)/[facility] LABORATORY Lymph % 39.3 % [facility] Lymphocytes Abs 1.9 0.9 - 3.2 x10(3)/[facility]OSPITAL LAB[facility] Monocyte % 8.6 % [facility] ITAL LABORATORY Monocyte Abs 0.4 0.3 - 0.9 x10(3)/[facility] LABORATORY Eos % 1.6 % [facility] Eosinophils Abs 0.1 0.0 - 0.4 x10(3)/[facility] LABORATORY Basophil % 0.4 % [facility]AL LAB[facility]ORY Baso Absolute 0.0 0.0 - 0.1 x10(3)/[facility]ORATORY Immature Gran % 0.60 % [facility] Comment: Immature granulocytes(IG's)percentage and absolute count will include metamyelocytes, myelocytes, and promyelocytes. Blood smears from CBCs yielding IG's will be scanned manually for concordance. If this scan disagrees with the automated IG or if promyelocytes are noted, a manual differential will be performed. Immature Gran Absolute 0.03 0.00 - 0.04 x10(3)/[facility]ATORY Blood 08/13/2023 12:0 5 PM EDT 08/13/2023 12:14 PM EDT Narrative Resulting Agency Comment Spec In Lab Devendra Bennett MD HEMATOLOGY ORDERABLE S Performing Organization Address City/State/[facility] Co de Phone Number [facility] [place] [address] * (ABNORMAL) Hemogram (08/13/2023 12:05 PM EDT) White Blood Cell 4.9 4.0 - 9.5 x10(3)/mc L [facility] Red Blood Cell 5.42 4.58 - 5.54 x10(6)/mc L [facility] Hemoglobin 15.7 13.7 - 16.5 g/dL [facility] Hematocrit 44.4 40.5 - 48.5 % [facility] Mean Cell Volume 81.9(L) 82.9 - 93.1 fL [facility] Mean Cell Hemoglobin 29.0 27.5 - 32.1 pg [facility] Mean Cell Hemoglobin Concentration 35.4 32.0 - 35.7 g/dL [facility] Platelet 33(L) 145 - 357 x10(3)/mc L [facility] RDW Standard Deviation 37.9 36.0 - 45.0 fL [facility] RDW coefficient of variation 12.7 11.4 - 13.8 % [facility] Mean Platelet Volume 13.3(H) 7.6 - 12.9 fL [facility] NRBC% auto 0.0 % [facility] NRBC Absolute 0.000 0.000 - 0.000 x10(3)/mc L [facility] Blood 08/13/2023 12:0 5 PM EDT 08/13/2023 12:14 PM EDT Narrative Resulting Agency Comment Spec In Lab Devendra Bennett MD HEMATOLOGY ORDERABLE S [facility] [place] [address] * Antibody screen (08/13/2023 12:05 PM EDT) Ab Screen Interp Negative [facility] Expires at 2359 on: 08/16/2023 [facility] Blood 08/13/2023 12:0 5 PM EDT 08/13/2023 12:08 PM EDT Narrative Resulting Agency Comment Spec In Lab Devendra Bennett MD BLOOD BANK LAB ORDER JESUS [facility] [place] [address] * ABO/Rh Typing (08/13/2023 12:05 PM EDT) ABORH Type A Pos [facility] Blood 08/13/2023 12:0 5 PM EDT 08/13/2023 12:08 PM EDT Narrative Resulting Agency Comment Spec In Lab Devendra Bennett MD BLOOD BANK LAB ORDER JESUS Performing Organization Address City/[facility]/ZIP Co de Phone Number [facility] [place] [address] * SCAN DOC: IMPLANTABLE DEVICES (08/13/2023 12:00 AM EDT) Narrative 08/13/2023 12:00 AM EDT Ordered by an unspecified provider. Scanning Provider MEDIA MGR SCAN EXT O RDR/RSLT * SCAN DOC: LAB (08/13/2023 12:00 AM EDT) Narrative 08/13/2023 12:00 AM EDT Ordered by an unspecified provider. Scanning Provider MEDIA MGR SCAN EXT O RDR/RSLT documented in this encounter Visit Diagnoses Diagnosis s/p L shoulder distal clavicle excision, arthroscopic debridement, biceps tenodesis 08/13/23 Dr. Bennett- Primary Thrombocytopenia Thrombocytopenia, unspecified Superior glenoid labrum lesion of left shoulder, initial encounter documented in this encounter Admitting Diagnoses Diagnosis S/P arthroscopy of left shoulder documented in this encounter Administered Medications Inactive Administered Medications - up to 3 most recent administrations Medication Order MAR Action Action Date Dose Rate Site acetaminophen (Tylenol) tablet 975 mg 975 mg, Oral, ONCE PRN, 1 dose, Starting on Sun08/13/23 at 1307, Until Sun08/13/23 at 1433, Pain, Day of Surgery (Day of Procedure), Routine Given 08/13/2023 2:33 PM EDT 975 mg acetaminophen (Tylenol) tablet 975 mg 975 mg, Oral, EVERY 8 HOURS SCHEDULED, First dose on Sun08/13/23 at 2200, Until Discontinued, Maximum dose of acetaminophen is 4,000 mg from all sources in 24 hours. When ordered for pain, acetaminophen should be given even when other ordered pain medications are indicated. , Routine Given 08/14/2023 5:13 AM EDT 975 mg Given 08/13/2023 9:02 PM EDT 975 mg budesonide (Pulmicort) nebulizer suspension 500 mcg 500 mcg, Nebulization, 2 TIMES DAILY (RESPIRATORY THERAPY), First dose on Sun08/13/23 at 2100, Until Discontinued, Routine Given 08/14/2023 5:14 AM EDT 500 mcg fentaNYL (PF) (50 mcg/mL) injection 50 mcg 50 mcg, Intravenous, EVERY 5 MIN PRN, Starting on Sun08/13/23 at 1505, Until Sun08/13/23 at 1548, Pain, or prior to injection of local anesthetic., Hold for respiratory rate less than 8 breaths per minute. (maximum dose 200 mcg), Day of Surgery (Day of Procedure), Routine Given 08/13/2023 3:38 PM EDT 50 mcg Given 08/13/2023 3:32 PM EDT 50 mcg loratadine (Claritin) tablet 10 mg 10 mg, Oral, DAILY, First dose on Sun08/14/23 at 0900, Until Discontinued Given 08/14/2023 8:19 AM EDT 10 mg melatonin tablet 3 mg 3 mg, Oral, NIGHTLY, First dose on Sun08/13/23 at 2330, Until Discontinued, Routine Given 08/14/2023 1:00 AM EDT 3 mg midazolam (pf) (Versed) (1 mg/mL) injection 1 mg 1 mg, Intravenous, EVERY 5 MIN PRN, Starting on Sun08/13/23 at 1506, Until Sun08/13/23 at 1548, Other, sedation or prior to injection of local anesthetic, Hold for delirium/agitation. (Maximum dose 5 mg)., Day of Surgery (Day of Procedure), Routine Given 08/13/2023 3:32 PM EDT 2 mg oxyCODONE (Roxicodone) tablet 10 mg 10 mg, Oral, EVERY 4 HOURS PRN, Starting on Sun08/13/23 at 1804, Until Sun08/14/23 at 1307, Pain, moderate pain (4-6), For moderate pain (4-6). Do not exceed 15 mg in 4 hours. If pain not relieved, call provider., Routine Given 08/14/2023 9:21 AM EDT 1 0 mg Given 08/13/2023 9:09 PM EDT 10 mg oxyCODONE (Roxicodone) tablet 15 mg 15 mg, Oral, EVERY 4 HOURS PRN, Starting on Sun08/13/23 at 1804, Until Sun08/14/23 at 1307, Pain, severe pain (7-10), For severe pain (7-10). Do not exceed 15 mg in 4 hours. If pain not relieved, call provider., Routine Given 08/14/2023 1:00 AM EDT 15 mg oxyCODONE (Roxicodone) tablet 5 mg 5 mg, Oral, EVERY 4 HOURS PRN, Starting on Sun08/13/23 at 1804, Until Sun08/14/23 at 1307, Pain, mild pain (1-3), For mild pain (1-3). Do not exceed 15 mg in 4 hours. If pain not relieved, call provider., Routine Given 08/14/2023 5:13 AM EDT 5 mg pantoprazole EC (Protonix) tablet 40 mg 40 mg, Oral, DAILY, First dose on Sun08/14/23 at 0900, Until Discontinued Given 08/14/2023 8:19 AM EDT 40 mg pramipexole (Mirapex) tablet 0.5 mg 0.5 mg, Oral, NIGHTLY, First dose on Sun08/13/23 at 2100, Until Discontinued, Routine Given 08/13/2023 9:02 PM EDT 0.5 mg rosuvastatin (Crestor) tablet 10 mg 10 mg, Oral, DAILY, First dose on Sun08/14/23 at 0900, Until Discontinued, Routine Given 08/14/2023 8:19 AM EDT 10 mg senna-docusate (Pericolace) 8.6-50 mg per tablet 2 tablet 2 tablet, Oral, 2 TIMES DAILY, First dose on Sun08/13/23 at 2100, Until Discontinued, Hold for loose stool. , Routine Given 08/14/2023 8:19 AM EDT 2 tablets Given 08/13/2023 9:02 PM EDT 2 tablets sodium chloride 0.9% infusion 1,000 mL, at 100 mL/hr, Intravenous, CONTINUOUS, Starting on Sun08/13/23 at 1830, Until Sun08/14/23 at 1307, Recovery (Recovery-Hospital Unit) New Bag 08/13/2023 6:30 PM EDT 1,000 mLs 100 mL/hr documented in this encounter Active and Recently Administered Medications Times are shown in EDT. Scheduled Medication Order 08/12/2023 08/13/2023 08/14/2023 acetaminophen (Tylenol) tablet 975 mg 975 mg, Oral, EVERY 8 HOURS SCHEDULED, First dose on Sun08/13/23 at 2200, Until Discontinued, Maximum dose of acetaminophen is 4,000 mg from all sources in 24 hours. When ordered for pain, acetaminophen should be given even when other ordered pain medications are indicated. , Routine 2101 (Given - Provider: Norma Beckett RN) 512 (Given - Provider: Norma Beckett RN) budesonide (Pulmicort) nebulizer suspension 500 mcg 500 mcg, Nebulization, 2 TIMES DAILY (RESPIRATORY THERAPY), First dose on Sun08/13/23 at 2100, Until Discontinued, Routine 2100 (Not Given - Provider: Norma Beckett RN - Reason: Patient/family refused) 0514 (Given - Provider: Norma Beckett RN) ceFAZolin (Ancef) 2 g vial attach to sodium chloride 0.9% 100 mL Mini-Bag Plus (COMPLETED) 2 g, Intravenous, EVERY 4 HOURS, 1 dose, First dose on Sun08/13/23 at 1330, Administer over 30 Minutes, Redose after 4 hours., Day of Surgery (Day of Procedure), Indication for (Active or Suspected): Prophylaxis 1614 (New Bag - Provider: Terrell Yuan CRNA) loratadine (Claritin) tablet 10 mg 10 mg, Oral, DAILY, First dose on Sun08/14/23 at 0900, Until Discontinued 818 (Given - Provid er: Janie Rowe RN) melatonin tablet 3 mg 3 mg, Oral, NIGHTLY, First dose on Sun08/13/23 at 2330, Until Discontinued, Routine 99 (Given - Provid er: Norma Beckett RN) pantoprazole EC (Protonix) tablet 40 mg 40 mg, Oral, DAILY, First dose on Sun08/14/23 at 0900, Until Discontinued 818 (Given - Provid er: Janie Rowe RN) pramipexole (Mirapex) tablet 0.5 mg 0.5 mg, Oral, NIGHTLY, First dose on Sun08/13/23 at 2100, Until Discontinued, Routine 2101 (Given - Provider: Norma Beckett RN) rosuvastatin (Crestor) tablet 10 mg 10 mg, Oral, DAILY, First dose on Sun08/14/23 at 0900, Until Discontinued, Routine 818 (Given - Provid er: Janie Rowe RN) senna-docusate (Pericolace) 8.6-50 mg per tablet 2 tablet 2 tablet, Oral, 2 TIMES DAILY, First dose on Sun08/13/23 at 2100, Until Discontinued, Hold for loose stool. , Routine 2101 (Given - Provider: Norma Beckett RN) 818 (Given - Provider: Janie Rowe RN) tranexamic acid (Cyklokapron) (100 mg/mL) infusion 1,550 mg (COMPLETED) 1,550 mg (rounded from 1,549.5 mg = 15 mg/kg/dose ? 103.3 kg), Intravenous, ONCE, 1 dose, On Sun08/13/23 at 1330, Administer no faster than 100 mg/min., Day of Surgery (Day of Procedure), STAT 1614 (Given - Provider: Terrell Yuan CRNA) Continuous Medication Order 08/12/2023 08/13/2023 08/14/2023 sodium chloride 0.9% infusion 1,000 mL, at 100 mL/hr, Intravenous, CONTINUOUS, Starting on Sun08/13/23 at 1830, Until Sun08/14/23 at 1307, Recovery (Recovery-Hospital Unit) 1830 (New Bag - Provider: Norma Beckett RN) 1307 (Due: Stopped) PRN Medication Order 08/12/2023 08/13/2023 08/14/2023 acetaminophen (Tylenol) tablet 975 mg (COMPLETED) 975 mg, Oral, ONCE PRN, 1 dose, Starting on Sun08/13/23 at 1307, Until Sun08/13/23 at 1433, Pain, Day of Surgery (Day of Procedure), Routine 1433 (Given - Provider: Jaylon Sanders RN) EPINEPHrine (Adrenalin) (1 mg/mL) injection (CANCELED) PRN, Starting on Sun08/13/23 at 1633, Until Sun08/14/23 at 1307, Intra-Operative (Intra-Procedure), Routine 1633 (Given - Provider: Devendra Bennett MD - Comment: 2mg mixed with 6L normal saline as irrigation (1mg in each 3L bag of normal saline)) fentaNYL (PF) (50 mcg/mL) injection 50 mcg (CANCELED) 50 mcg, Intravenous, EVERY 5 MIN PRN, Starting on Sun08/13/23 at 1505, Until Sun08/13/23 at 1548, Pain, or prior to injection of local anesthetic., Hold for respiratory rate less than 8 breaths per minute. (maximum dose 200 mcg), Day of Surgery (Day of Procedure), Routine 1532 (Given - Provider: Britney Loomis, RENNY)1538 (Given - Provider: Britney Loomis RN) midazolam (pf) (Versed) (1 mg/mL) injection 1 mg (CANCELED) 1 mg, Intravenous, EVERY 5 MIN PRN, Starting on Sun08/13/23 at 1506, Until Sun08/13/23 at 1548, Other, sedation or prior to injection of local anesthetic, Hold for delirium/agitation. (Maximum dose 5 mg)., Day of Surgery (Day of Procedure), Routine 1532 (Given - Provider: Britney Loomis RN) ondansetron (pf) (Zofran) (2 mg/mL) injection 4 mg 4 mg, Intravenous, EVERY 8 HOURS PRN, Starting on Sun08/13/23 at 2001, Until Sun08/14/23 at 1307, Nausea, Vomiting, May repeat 4 mg IV once in 30 minutes for unrelieved nausea or vomiting. If multiple antiemetics are ordered, use ondansetron first, prochlorperazine second, metoclopramide third., Routine oxyCODONE (Roxicodone) tablet 10 mg(Linked Group 1) 10 mg, Oral, EVERY 4 HOURS PRN, Starting on Sun08/13/23 at 1804, Until Sun08/14/23 at 1307, Pain, moderate pain (4-6), For moderate pain (4-6). Do not exceed 15 mg in 4 hours. If pain not relieved, call provider., Routine 2108 (Given - Provider: Norma Beckett RN) 010 (See Alternative - Provider: Norma Beckett RN)0513 (See Alternative - Provider: Norma Beckett RN)0921 (Given - Provider: Janie Rowe RN) oxyCODONE (Roxicodone) tablet 15 mg(Linked Group 1) 15 mg, Oral, EVERY 4 HOURS PRN, Starting on Sun08/13/23 at 1804, Until Sun08/14/23 at 1307, Pain, severe pain (7-10), For severe pain (7-10). Do not exceed 15 mg in 4 hours. If pain not relieved, call provider., Routine 2108 (See Alternative - Provider: Norma Beckett RN) 010 (Given - Provider: Norma Beckett RN)0513 (See Alternative - Provider: Norma Beckett RN)0921 (See Alternative - Provider: Janie Rowe RN) oxyCODONE (Roxicodone) tablet 5 mg(Linked Group 1) 5 mg, Oral, EVERY 4 HOURS PRN, Starting on Sun08/13/23 at 1804, Until Sun08/14/23 at 1307, Pain, mild pain (1-3), For mild pain (1-3). Do not exceed 15 mg in 4 hours. If pain not relieved, call provider., Routine 2108 (See Alternative - Provider: Norma Beckett RN) 99 (See Alternative - Provider: Norma Beckett RN)05 (Given - Provider: Norma Beckett RN)0921 (See Alternative - Provider: Janie Rowe RN) Linked Groups Order Group 1: oxyCODONE (Roxicodone) tablet 5 mgJump to med 5 mg, Oral, EVERY 4 HOURS PRN, Starting on Sun08/13/23 at 1804, Until Sun08/14/23 at 1307, Pain, mild pain (1-3), For mild pain (1-3). Do not exceed 15 mg in 4 hours. If pain not relieved, call provider., Routine Or oxyCODONE (Roxicodone) tablet 10 mgJump to med 10 mg, Oral, EVERY 4 HOURS PRN, Starting on Sun08/13/23 at 1804, Until Sun08/14/23 at 1307, Pain, moderate pain (4-6), For moderate pain (4-6). Do not exceed 15 mg in 4 hours. If pain not relieved, call provider., Routine Or oxyCODONE (Roxicodone) tablet 15 mgJump to med 15 mg, Oral, EVERY 4 HOURS PRN, Starting on Sun08/13/23 at 1804, Until Sun08/14/23 at 1307, Pain, severe pain (7-10), For severe pain (7-10). Do not exceed 15 mg in 4 hours. If pain not relieved, call provider., Routine documented in this encounter Care Teams Chaplain Resident Relationship Specialty Start Date End Date Marian Pierre MD [address] [place] [id number] PCP - General Family Medicine 08/15/22 documented as of this encounter
--- OUTSIDE RECORDS SUMMARY | 2024-10-27 11:23 | XMS_ITS | Encounter Summary ---
Author Organization [facility] [place] [address] Care Team Providers Care Manager Concrete Name Role Phone Marian Pierre MD Primary Care Provider [phone] Reason for Visit * Reason Onset Date Comments Questions 09/14/2023 Encounter Details Date Type Department Care Team (Late st Contact Info) Description 09/14/2023 Telephone [place] [address] Devendra Bennett MD [facility] [place] [address] Questions Social History Tobacco Use Types Packs/Day Years [...] Miscellaneous Notes * Telephone Encounter - Sabrina Bell RN - 09/14/2023 10:46 AM EST Returned call to PCP, Dr. Pierre in regards to patient. Patient is s/p Left shoulder arthroscopic debridement, open distal clavicle excision, open subpectoral tenodesis. 08/13/2023 (Dr. Bennett). She states she has been seeing patient for about a year, and recently saw him for follow-up. He is really struggling with night time discomfort, and is not getting much sleep. Prasanna informed her thatpost-op he did take oxycodone at night, which did help him get sleep. She does not like opioids forpain management. She has adjusted his Wellbutrin due to mood disturbances, and also will add trazodone at night to help induce sleep. Her next option would be to add Duloxetine for him. She does report that Prasanna stated he did try cyclobenzaprine prescribed by Hattie Flor at last appointment, but this did not help. She did ask Prasanna to contact ortho to check-in as well. I did advise that nighttime discomfort and sleep disturbance is extremely common following shouldersurgery. Dr. Bennett does not recommend opioids beyond 2 weeks post-op. I informed Dr. Pierre that I would send this information to Dr. Bennett's team so they are aware. * Telephone Encounter - Shannan Briscoe - 09/14/2023 9:16 AM ESTSummary: Medication question Name of person calling : Dr. Pierre Facility person calling from: [facility] Who is the provider: Donald Have you had surgery: Yes If yes : DOS:08/13/2023 Surgeon: Donald Is there a new injury: No If yes, how did the new injury occur?: Best contact number: :[phone] Pt: [phone] What is the question: Dr. Pierre called and stated Pt is having trouble with pain management postop and is asking for Oxycodone. documented in this encounter Plan of Treatment Upcoming Encounters Date Type Department Care Team (Late st Contact Info) Description 01/28/2025 3:30 PM EDT Office Visit [place] [address] Raza Glasgow MD [facility] [address] documented as of this encounter Visit Diagnoses Not on filedocumented in this encounter Care Teams Manager Concrete Relationship Specialty Start Date End Date Marian Pierre MD [address] [place] [phone] PCP - General Family Medicine 08/15/22 documented as of this encounter
--- OUTSIDE RECORDS SUMMARY | 2024-10-27 11:23 | XMS_ITS | Encounter Summary ---
Author Organization [facility] [place] [address] Care Team Providers Care Branch Retail Executive Name Role Phone Marian Pierre MD Primary Care Provider [phone] Encounter Details Date Type Department Care Team (Late st Contact Info) Description 11/20/2023 Orders Only [place] [address] Norma Garrido APRN [facility] DR HEMATOLOGY [place] [address] Social History Tobacco Use Types Packs/Day Years Used Date Smoking Tobacco: Never Smokeless Tobacco: Never Alcohol Use Standard Drinks/Week Comments Not Currently 0 (1 standard drink = 0.6 oz pur e alcohol) once a month [facility] Inpatient Questions Answer Date Recorded [...] 3:30 PM EDT Office [place] [address] Raza Glasgow MD [facility] [place] [address] documented as of this encounter Visit Diagnoses Not on filedocumented in this encounter Care Teams Branch Retail Executive Relationship Specialty Start Date End Date Marian Pierre MD [address] [place] [address] PCP - General Family Medicine 08/15/22 documented as of this encounter
--- OUTSIDE RECORDS SUMMARY | 2024-10-27 11:23 | XMS_ITS | Encounter Summary ---
Author Organization [facility] [place] [address] Care Team Providers Care Studio Producer Name Role Phone Marian Pierre MD Primary Care Provider [phone] Encounter Details Date Type Department Care Team (Latest Contact Info) Description 10/15/2023 6:46 AM EST - 10/15/2023 11:[address] [facility] Hospital Encounter [place]ology [place] [address] Idiopathic thrombocytopenic purpura; History of ITP Discharge Disposition: Home Social History Tobacco Use Types Packs/Day Years Used Date Smoking Tobacco: Never Smokeless Tobacco: Never Alcohol Use Standard Drinks/Week Comments Not Currently 0 (1 standard drink = 0.6 oz pur e alcohol) once a month [facility] Inpatient Questions Answer Date Recorded Does Anyone [...] 3:30 PM EDT Office [place] [address] Raza Glasgow MD [facility] [place] [address] documented as of this encounter Procedures Procedure Name Priority Date/Time Associated Diagnosis Comments TYPE AND SCREEN VALIDITY Routine 10/15/2023 7:00 AM EST ABORH RECHECK STATUS Routine 10/15/2023 7:00 AM EST HEMOGRAM STAT 10/15/2023 7:00 AM EST History of ITP DIFFERENTIAL, AUTOMATED STAT 10/15/2023 7:00 AM EST History of ITP ABO/RH TYPING Routine 10/15/2023 7:00 AM EST Idiopathic thrombocytopenic purpura CBC (WITH DIFF) STAT 10/15/2023 7:00 AM EST History of ITP ANTIBODY SCREEN Routine 10/15/2023 7:00 AM EST Idiopathic thrombocytopenic purpura TYPE AND SCREEN ([facility]/CGMohsen/ELIN) Routine 10/15/2023 7:00 AM EST Idiopathic thrombocytopenic purpura documented in this encounter Results * Type and Screen Validity (10/15/2023 7:00 AM EST) T&S only valid at [facility]OR[facility] Comment:This Type and Screen result is only valid at the [facility] Hospital Blood 10/15/2023 7:00 AM EST 10/15/2023 7:03 AM EST Narrative Resulting Agency Comment Spec In Lab Raza Glasgow MD BLOOD BANK LAB ORDER JESUS Performing Organization Address [facility] Co de Phone Number [facility] [place] [address] * ABORH Recheck Status (10/15/2023 7:00 AM EST) Pathologist [facility] ABORH Type Recheck Completed [facility] Blood 10/15/2023 7:00 AM EST 10/15/2023 7:03 AM EST Narrative Resulting Agency Comment Spec In Lab Raza Glasgow MD BLOOD BANK LAB ORDER JESUS Performing Organization Address [facility] Co de Phone Number [facility] [place] [address] * Differential, Automated (10/15/2023 7:00 AM EST) Neutrophil % 45.6 % [facility] Neutrophil Absolute 2.24 1.70 - 6.10 x10(3)/[facility] LABORATORY Lymph % 43.5 % [facility] Lymphocytes Abs 2.1 0.9 - 3.2 x10(3)/[facility] LABORATORY Monocyte % 7.7 % [facility] Monocyte Abs 0.4 0.3 - 0.9 x10(3)/[facility] LABORATORY Eos % 2.0 % [facility] Eosinophils Abs 0.1 0.0 - 0.4 x10(3)/[facility] LABORATORY Basophil % 0.6 % [facility] Baso Absolute 0.0 0.0 - 0.1 x10(3)/[facility] LABORATORY Immature Gran % 0.60 % [facility] Comment: Immature granulocytes(IG's)percentage and absolute count will include metamyelocytes, myelocytes, and promyelocytes. Blood smears from CBCs yielding IG's will be scanned manually for concordance. If this scan disagrees with the automated IG or if promyelocytes are noted, a manual differential will be performed. Immature Gran Absolute 0.03 0.00 - 0.04 x10(3)/[facility] LABORATORY Blood 10/15/2023 7:00 AM EST 10/15/2023 7:04 AM EST Narrative Resulting Agency Comment Spec In Lab Norma Robina Garrido [employer] [facility] HEMATOLOGY ORDERAB LES Performing Organization Address City/State/[facility] Co de Phone Number [facility] [place] [address] * (ABNORMAL) Hemogram (10/15/2023 7:00 AM EST) White Blood Cell 4.9 4.0 - 9.5 x10(3)/mc L [facility] Red Blood Cell 5.24 4.58 - 5.54 x10(6)/ L [facility] Hemoglobin 14.9 13.7 - 16.5 g/dL [facility] Hematocrit 42.6 40.5 - 48.5 % [facility] Mean Cell Volume 81.3(L) 82.9 - 93.1 fL [facility] Mean Cell Hemoglobin 28.4 27.5 - 32.1 pg [facility] Mean Cell Hemoglobin Concentration 35.0 32.0 - 35.7 g/dL [facility] Platelet 33(L) 145 - 357 x10(3)/mc L [facility] RDW Standard Deviation 37.9 36.0 - 45.0 fL [facility] RDW coefficient of variation 13.0 11.4 - 13.8 % [facility] Mean Platelet Volume 12.7 7.6 - 12.9 fL [facility] NRBC% auto 0.0 % [facility] NRBC Absolute 0.000 0.000 - 0.000 x10(3)/mc L [facility] Blood 10/15/2023 7:00 AM EST 10/15/2023 7:04 AM EST Narrative Resulting Agency Comment Spec In Lab Norma Garrido [employer] HEMATOLOGY ORDERAB LES Performing Organization Address City/[facility]/[place] [address] * Antibody screen (10/15/2023 7:00 AM EST) Ab Screen Interp Negative [facility] Expires at 2359 on: 10/18/2023 [facility] Blood 10/15/2023 7:00 AM EST 10/15/2023 7:03 AM EST Narrative Resulting Agency Comment Spec In Lab Raza Glasgow MD BLOOD BANK LAB ORDER JESUS Performing Organization Address City/[facility] Co de Phone Number [facility] [place] [address] * ABO/Rh Typing (10/15/2023 7:00 AM EST) ABORH Type A Pos [facility] Blood 10/15/2023 7:00 AM EST 10/15/2023 7:03 AM EST Narrative Resulting Agency Comment Spec In Lab Raza Glasgow MD BLOOD BANK LAB ORDER JESUS Performing Organization Address City/[facility] Co de Phone Number [facility] [place] [address] documented in this encounter Visit Diagnoses Diagnosis Idiopathic thrombocytopenic purpura Immune thrombocytopenic purpura History of ITP Personal history of diseases of blood and blood-forming organs documented in this encounter Care Teams Studio Producer Relationship Specialty Start Date End Date Marian Pierre MD [address] [place] [address] PCP - General Family Medicine 08/15/22 documented as of this encounter
--- OUTSIDE RECORDS SUMMARY | 2024-10-27 11:23 | XMS_ITS | Encounter Summary ---
Author Organization [facility] [place] [address] Care Team Providers Care Ski Patrol Officer Name Role Phone Marian Pierre MD Primary Care Provider [phone] Encounter Details Date Type Department Care Team (Late st Contact Info) Description 11/08/2023 Orders [place] [address] Raza Glasgwo MD [facility] [place] [address] Social History Tobacco Use Types Packs/Day Years [...] 3:30 PM EDT Office [place] [address] Raza Glasgow MD [facility] [place] [address] documented as of this encounter Visit Diagnoses Not on filedocumented in this encounter Care Teams Ski Patrol Officer Relationship Specialty Start Date End Date Marian Pierre MD [address] [place] [address] PCP - General Family Medicine 08/15/22 documented as of this encounter
--- OUTSIDE RECORDS SUMMARY | 2024-10-27 11:23 | XMS_ITS | Encounter Summary ---
Author Organization [facility] Address [facility] [place] [address] Care Team Providers Care Flue Blower Name Role Phone Marian Pierre MD Primary Care Provider Encounter Details Date Type Department Care Team (Late st Contact Info) Description 10/12/2023 11:30 AM EST [place] [address] Mayo Ro MD [facility] [place] [address] Exertional dyspnea Social History Tobacco Use Types Packs/Day Years [...] Sign Reading Time Taken Comments Blood Pressure 125/88 10/12/2023 11:19 AM EST Pulse 89 10/12/2023 11:19 AM EST Temperature 36.4 ??C (97.5 ??F) 10/12/2023 11:[address] Respiratory Rate 16 10/12/2023 11:19 AM EST Oxygen Saturation 98% 10/12/2023 11:19 AM EST Inhaled Oxygen Concentration - - Weight 100.7 kg (222 lb) 10/12/2023 11:19 AM EST Height 175.3 cm (5' 9) 10/12/2023 11:19 AM EST Body Mass Index 32.78 10/12/2023 11:19 AM EST documented in this encounter Patient Instructions * Patient Instructions* Mayo Ro MD - 10/12/2023 11:30 AM EST If symptoms of chest pain or breathlessness return, please call us back. documented in this encounter Progress Notes * Mayo Ro MD - 10/12/2023 11:30 AM EST Images from the original note were not included. [facility] Section of Pulmonary and Critical Care Medicine Outpatient Consultation Follow-up Date of Encounter: 10/08/2023 Referring Provider: Marian Pierre MD [address] [place] [id number] I saw him last in the Pulmonary Clinic in July 2023. I independently interviewed and examined the patient in the office and have reviewed available records. Past Medical and Surgical History: Diagnosis Date Allergy asthma prostatitis restless leg PALAK ITP Past Surgical History: Procedure Laterality Date CT GUIDED INJECTION SI JOINT 09/10/2018 CT Guided Injection SI Joint 09/10/2018 [facility] RAD CAT SCAN CT GUIDED NERVE BLOCK LUMBAR SINGLE LEVEL 08/05/2019 CT Guided Nerve Block Lumbar Single Level 08/05/2019 [facility] RAD CAT SCAN PRO PARTIAL REMOVAL, CLAVICLE Left 08/13/2023 CLAVICULECTOMY, PARTIAL (WRVU 7.39) performed by Devendra Bennett MD at [facility] MAIN OR PRO REPAIR BICEPS LONG TENDON Left 08/13/2023 TENODESIS,BICEPS TENDON (PROXIMAL) (WRVU 10.17) performed by Devendra Bennett MD at [facility] MAIN OR PRO SHLDR ARTHROSCOP, EXTEN DEBRIDE Left 08/13/2023 ARTHROSCOPY SHOULDER DEBRIDEMENT EXTENSIVE (WRVU 7.98) performed by Devendra Bennett MD at [facility] MAIN OR PRO UNLISTED PROCEDURE, MUSCULOSKELETAL SYSTEM, GENERAL Knee PRO UNLISTED PX UR SYS June, Vasectomy Current Medications: Outpatient Encounter Medications as of 10/12/2023 Medication Sig Dispense Refill methocarbamoL (Robaxin) 500 mg tablet Take 1 tablet by mouth 3 times daily. 30 tablet PRN budesonide (Pulmicort) 0.5 mg/2 mL Suspension MIX 1 RESPULE WITH 240 ML (8 rosuvastatin (Crestor) 20 mg t Take 0.5 tablets by 45 tablet 3 omeprazole (PriLOSEC) 40 Take 40 mg by acetaminophen (Tylenol) 500 Take 1,000 mg by multivitamin Tablet, Chewable Take by mouth. cetirizine (ZYRTEC) 10 mg PRN History of Present Illness: Prasanna Shipman is a 53 y.o. with PMH of asthma, ITP, COVID-19 x 2, hyperlipidemia, and PALAK. Details taken from the pulmonary note of 12/19/22 for evaluation of dyspnea and cough. His PFTs show normal spirometry/DLCO. His CT scan reveals no evidence of pulmonary pathology. A course of higher symbicort dosing for 8 weeks gave no improvement in his symptoms. He takes albuterol before physical activity, but does not [...] exertion does not seem to be problematic. Since last visit, he and I have been in communication with Dr Tyler his airway traffic controller, who does not think there is enough of a compelling case to proceed to coronary angiography, but rather to continue with a potent statin and life style modifications. Dr Tyler is not convinced that the ST changes late in exercise were suggestive of ischemia. I have now reviewed the CPET EKGs and am not convince that he had worrisome ST changes. Labs: No significant eosinophilia on CBC,no anemia, [...] minutes 30 seconds The patient achieved 209 garenr of work at peak exercise, or 93% [...] chest from July 2022-no lung parenchymal abnormalities CT Coronary angiogram 03/2023 FINDINGS: Coronary calcium score: Left main: Agatston score: 7 Left anterior descending: Agatston score: 70 Left circumflex: Agatston score: 0 Right coronary: Agatston score: 9 TOTAL: Agatston score: 86 Atherosclerotic plaque burden, based on Agatston score: Mild Percentile rank, based on age, race/ethnicity, and gender: 87%-ile. Grading of coronary artery disease (based on total calcium score) no evidence of CAD: 0 calcium score minimal: 1-10 mild: 11-100 moderate: 101-400 severe: >400 Reference: Briseida RL, Jeison H, Rebecca R, et al. ??Distribution of coronary artery calcium by race, gender, and age: results from the Multi-Ethnic Study of Atherosclerosis (SOLORZANO). Circulation. 2006;113(1):30-37. Coronary arteries: Right dominant coronary circulation. Left main: Normal origin. Trifurcates into LAD, ramus intermedius and circumflex. Calcified and noncalcified plaques cause less than 50% luminal narrowing Ramus intermedius: Small patent vessel Left anterior descending: Predominantly noncalcified plaque in the proximal LAD causes mild luminal narrowing. Shallow bridge spanning approximately 1.4 cm in the mid LAD. Two diagonal branches: D1: Early take off, small patent vessel D2: Small patent vessel Left Circumflex: Small patent vessel. Terminates as obtuse marginal branch. Right coronary: Normal origin. Calcified plaques in the proximal RCA cause no luminal narrowing. Calcified plaque in the mid RCA causes no luminal narrowing. Posterior descending: No plaque or stenosis. Posterolateral branch: No plaque or stenosis. Cardiac chambers: No significant findings. Great vessels: No significant findings. Pulmonary parenchyma, airways, pleura: No significant findings. Upper abdomen: No significant findings Skeletal Structures: No significant findings. IMPRESSION 1. Predominantly calcified plaque in the distal [...] 2 - Mild nonobstructive coronary artery disease Cardiac pharmacologic stress study 05/22/23 No fixed [...] function is normal. Normal coronary flow reserve. Physical exam Patient Vitals for the past 24 hrs: Temp Pulse Resp BP SpO2 10/12/23 1119 36.4 ??C (97.5 ??F) 89 16 125/88 98 % GENERAL: in no distress HEART: No ventricular heave; regular rate and rhythm; no murmers, rubs, or gallops LUNGS: clear to P and A, no wheeze or crackles ABD: Soft, nontender and nondistended, bowel sounds present, no hepatomegaly, no splenomegaly EXT: No edema, no clubbing, no joint swelling or deformities SKIN: No rashes NEURO: Alert and oriented, moving all extremities Impression and Plan of Care: Mild exercise intolerance with equivocal EKG changes worrisome for ischemia. Although he has very mild CAD by his CT angiogram results, his cardiac workup has been unrevealing for any significant coronary artery disease by regadenosan stress testing. At this point he will try to reduce his stress level, stay physically active and follow-up with cardiology for risk factor modification. If his exertional capacity and symptoms worsen I will be available to see him again to re-evaluate. I spent 32 minutes on all aspects of this visit including chart review, history taking, physical exam, formulating and discussing plans with the patient and drafting this note. Mayo Ro MD, PhD N [facility] PULMONOLOGY AT [facility] [address] Dept: [phone] Loc: [phone] documented in this encounter Plan of Treatment Upcoming Encounters Date Type Department Care Team (Late st Contact Info) Description 01/28/2025 3:30 PM EDT Office [place] [address] Raza Glasgow MD [facility] [place] [address] documented as of this encounter Visit Diagnoses Diagnosis Exertional dyspnea Other dyspnea and respiratory abnormality documented in this encounter Care Teams Flue Blower Relationship Specialty Start Date End Date Marian Pierre MD [address] [place] [address] PCP - General Family Medicine 08/15/22 documented as of this encounter
--- OUTSIDE RECORDS SUMMARY | 2024-10-27 11:23 | XMS_ITS | Encounter Summary ---
[place] [address] Care Team Providers Care Production Line Worker Name Role Phone Marian Pierre MD Primary Care Provider Encounter Details Date Type Department Care Team (Late st Contact Info) Description 09/03/2023 Telephone [place] [address] Tammy Aldana MD Social History Tobacco Use Types Packs/Day Years [...] encounter Miscellaneous Notes * Telephone Encounter - Tammy Aldana MD - 09/03/2023 2:20 PM EDT Spoke to patient via telephone. Peripheral nerve block resolved appropriately. No residual weakness/numbness/decreased sensation. No sign of infection at injection site. Tolerating POs appropriately.Patient very satisfied with nerve block. documented in this encounter Plan of Treatment Upcoming Encounters Date Type Department Care Team (Late st Contact Info) Description 01/28/2025 3:30 PM EDT Office Visit [place] [address] Raza Glasgow MD [facility] [place] [address] documented as of this encounter Visit Diagnoses Not on filedocumented in this encounter Care Teams Production Line Worker Relationship Specialty Start Date End Date Marian Pierre MD [address] [place] [address] PCP - General Family Medicine 08/15/22 documented as of this encounter
--- OUTSIDE RECORDS SUMMARY | 2024-10-27 11:23 | XMS_ITS | Encounter Summary ---
Author Organization [facility] [place] [address] Care Team Providers Care Senior Software Engineer Name Role Phone Marian Pierre MD Primary Care Provider [phone] Encounter Details Date Type Department Care Team (Late st Contact Info) Description 10/02/2023 Orders [place] [phone] Raza Glasgow MD [facility] [place] [address] Social History Tobacco Use Types Packs/Day Years [...] 3:30 PM EDT Office [place] [phone] Raza Glasgow MD [facility] [place] [address] documented as of this encounter Visit Diagnoses Not on filedocumented in this encounter Care Teams Senior Software Engineer Relationship Specialty Start Date End Date Marian Pierre MD [address] [place] [address] PCP - General Family Medicine 08/15/22 documented as of this encounter
--- OUTSIDE RECORDS SUMMARY | 2024-10-27 11:23 | XMS_ITS | Encounter Summary ---
Author Organization [facility] [place] [address] Care Team Providers Care Packaging Inspector Name Role Phone Marian Pierre MD Primary Care Provider Encounter Details Date Type Department Care Team (Late st Contact Info) Description 08/13/2023 Interpretation Only Radiology [address] [place] [address] [place] [id number] Unknown None Social History Tobacco Use Types Packs/Day Years [...] 3:30 PM EDT Office [place] [address] Raza Glasgow MD [facility] [place] [address] documented as of this encounter Procedures Procedure Name Priority Date/Time Associated Diagnosis Comments DH OR ENDOSCOPY Routine 08/13/2023 documented in this encounter Results * DH OR Endoscopy (08/13/2023) Anatomical Region Laterality Modality Other 08/13/2023 Narrative 08/13/2023 12:00 AM EDT Photographs - Images Procedure Note Unknown - 08/14/2023 Photographs - Images Unknown EA IMAGES documented in this encounter Visit Diagnoses Not on filedocumented in this encounter Care Teams Packaging Inspector Relationship Specialty Start Date End Date Marian Pierre MD [address] [place] [address] PCP - General Family Medicine 08/15/22 documented as of this encounter
--- OUTSIDE RECORDS SUMMARY | 2024-10-27 11:23 | XMS_ITS | Encounter Summary ---
Author Organization [facility] [place] [address] Care Team Providers Care Cyber Security Administrator Name Role Phone Marian Pierre MD Primary Care Provider [phone] Encounter Details Date Type Department Care Team (Latest Contact Info) Description 08/30/2023 2:45 PM EDT Laboratory Appointment Lab [address] [place] [address] History of ITP Social History Tobacco Use [...] 3:30 PM EDT Office [place] [address] Raza Glasgow MD [facility] [place] [address] documented as of this encounter Procedures Procedure Name Priority Date/Time Associated Diagnosis Comments HEMOGRAM STAT 08/30/2023 3:04 PM EDT History of ITP DIFFERENTIAL, AUTOMATED STAT 08/30/2023 3:04 PM EDT History of ITP CBC (WITH DIFF) STAT 08/30/2023 3:04 PM EDT History of ITP documented in this encounter Results * Differential, Automated (08/30/2023 3:04 PM EDT) Neutrophil % 57.9 % [facility] Neutrophil Absolute 3.89 1.70 - 6.10 x10(3)/[facility] Lymph % 29.7 % [facility] Lymphocytes Abs 2.0 0.9 - 3.2 x10(3)/[facility] Monocyte % 8.6 % [facility] Monocyte Abs 0.6 0.3 - 0.9 x10(3)/[facility] Eos % 2.8 % [facility] Eosinophils Abs 0.2 0.0 - 0.4 x10(3)/[facility] Basophil % 0.6 % [facility] Baso Absolute 0.0 0.0 - 0.1 x10(3)/[facility] Immature Gran % 0.40 % [facility] Comment: Immature granulocytes(IG's)percentage and absolute count will include metamyelocytes, myelocytes, and promyelocytes. Blood smears from CBCs yielding IG's will be scanned manually for concordance. If this scan disagrees with the automated IG or if promyelocytes are noted, a manual differential will be performed. Immature Gran Absolute 0.03 0.00 - 0.04 x10(3)/[facility] Blood 08/30/2023 3:04 PM EDT 08/30/2023 3:16 PM EDT Narrative Resulting Agency Comment Spec In Lab Norma Garrido APRN HEMATOLOGY ORDERAB LES [facility] [place] [address] * (ABNORMAL) Hemogram (08/30/2023 3:04 PM EDT) White Blood Cell 6.7 4.0 - 9.5 x10(3)/mc L [facility] Red Blood Cell 5.23 4.58 - 5.54 x10(6)/mc L [facility] Hemoglobin 14.9 13.7 - 16.5 g/dL [facility] Hematocrit 42.5 40.5 - 48.5 % [facility] Mean Cell Volume 81.3(L) 82.9 - 93.1 fL [facility] Mean Cell Hemoglobin 28.5 27.5 - 32.1 pg [facility] Mean Cell Hemoglobin Concentration 35.1 32.0 - 35.7 g/dL [facility] Platelet 74(L) 145 - 357 x10(3)/mc L [facility] RDW Standard Deviation 37.6 36.0 - 45.0 fL [facility] RDW coefficient of variation 12.6 11.4 - 13.8 % [facility] Mean Platelet Volume 13.1(H) 7.6 - 12.9 fL [facility] NRBC% auto 0.0 % [facility] NRBC Absolute 0.000 0.000 - 0.000 x10(3)/mc L [facility] Blood 08/30/2023 3:04 PM EDT 08/30/2023 3:16 PM EDT Narrative Resulting Agency Comment Spec In Lab Norma Garrido AUTOMATION AND CONTROLS MANAGER HEMATOLOGY ORDERAB LES [facility] [place] [address] documented in this encounter Visit Diagnoses Diagnosis History of ITP Personal history of diseases of blood and blood-forming organs documented in this encounter Care Teams Cyber Security Administrator Relationship Specialty Start Date End Date Marian Pierre MD [address] [place] [address] [place] [address] PCP - General Family Medicine 08/15/22 documented as of this encounter
--- OUTSIDE RECORDS SUMMARY | 2024-10-27 11:23 | XMS_ITS | Encounter Summary ---
Author Organization [facility] [place] [address] Care Team Providers Care Roof Shingler Name Role Phone Marian Pierre MD Primary Care Provider [phone] Reason for Visit * Reason Comments Post Op Congestion and press ure. Denies pain. Some dryness Encounter Details Date Type Department Care Team (Late st Contact Info) Description 10/22/2023 8:00 AM EST Office [place] [address] Raza Glasgow MD [facility] [place] [address] Chronic maxillary sinusitis; Chronic frontal sinusitis; Thrombocytopenia Social History Tobacco Use Types Packs/Day Years Used Date Smoking Tobacco: Never Smokeless Tobacco: Never Alcohol Use Standard Drinks/Week Comments Not Currently 0 (1 standard drink = 0.6 oz pur e alcohol) once a month [facility] Inpatient Questions Answer Date Recorded [...] - - Weight 97.5 kg (215 lb) 10/22/2023 7:51 AM EST Height - - Body Mass Index 31.75 10/16/2023 11:52 AM EST documented in this encounter Patient Instructions * Patient Instructions* Raza Glasgow MD - 10/22/2023 8:00 AM EST Nasal Irrigations What is nasal irrigation and [...] sale packets such as those sold by [employer] can be purchased at most drug stores, [...] the nose. We recommend using either a NeilMed squeeze bottle or a combination bulb-syring irrigation [...] allergens.8-9 A survey of members of the [place] Academy of Otolaryngology-Head and Neck Surgery found [...] side effects than oral administration. A fellow transverse abdominal muscle surgeon and colleague, Dr. Francisco Vázquez, studied large [...] (mean duration 38.2 months) were tested for qiiypqcpvcvw-jzwhoqnzy-gdigexd (HPA) axis suppression.19 There were no detected [...] may be warranted in these patients. Kurtis WW, Gurpreet CHINCHILLA, Ankita Srinivasan, Yessi PH, Zunilda CHINCHILLA. Distribution of topical agents to the paranasal sinuses: An evidence-based review with recommendations. International Forum of Allergy & Rhinology. 2013;3(9):691-703. Marv ORNELAS, Ankita Srinivasan. Delivery of topical therapies. In Rhinosinusitis with Nasal Polyposis. [employer]. 2016;79:114-120. Jeremi MA, Hayley SS, Catherine HM, Kwame ME, Nickolas JE. Nasal sailne for chronic sinonasal symptoms:A randomized controlled trial. Archives of Otolaryngology- Head & Neck Surgery. 2007;11:0401-7975. Gurpreet CHINCHILLA, Lei SOLANO, Tru SK, Zunilda CHINCHILLA. Effects of endoscopic sinus surgery on delivery device on cadaver sinus irrigation. Otolaryngology-Head and Neck Surgery. 2008;139(1):137-142. Maliha O, Brian A, Gia A, Iraida COLINDRES, Marbella WELLS, Henri B. Sinus irrigation penetration after balloon [...] sinus irrigant penetration in cadavers. The Laryngoscope. 2010;120(12):8642-9219. Maribeth MCLEOD, Gurpreet CHINCHILLA. Nasal saline irrigation therapeutic or homeopathic. [place] Journal of Otorhinolaryngology. 2015;81(5):457-458. Kings LJ, Van JM. Topical drug therapies for chronic rhinosinusitis. Otolaryngologic Clinics [facility]. 2017;50(3):533-543. Danelle SULTANA, Yovany Yeager, Ariel J. Perioperative care in functional endoscopic sinus surgery: A survey study. International Forum of Allergy & Rhinology. 2012;2(1):27-33. Sofie Pedroza, Shae R. Local and systemic safety of intranasal corticosteroids. Journal of Investigational Allergology and Clinical Immunology. 2012;22(1):1. Kirby Pedroza. Intranasal corticosteroids for allergic rhinitis: How do different agents compare? Journal of Allergy and Clinical Immunology. 1999;104(4):144-149. Ankita Srinivasan. High-volume sinonasal budesonide irrigations for chronic rhinosinusitis: An update on thesafety and effectiveness. Adv Pharmacoepidemiol Drug Saf. 2014;3(148):2167-105. Gurpreet CHINCHILLA, Spring K, Kam LH, Donald GM, Lea R. Corticosteroid nasal irrigations are more effective than simple sprays in a randomized double-blinded placebo-controlled trial for chronic rhinosinusitis after sinus surgery. International Forum of Allergy & Rhinology. 2018;8(4):461-470. Abilio KA, Rj DF, Milton J, Latisha F, Alessandro CA. Effect of intranasal budesonide irrigations on intraocular pressure. International Forum of Allergy & Rhinology. 2013;3(9):704-707. Kanika Urena, Guillermo ePdroza, Luis Packer, Elinor L, Dickson PH. Safety analysis of long-term budesonide nasal irrigations in patients with chronic rhinosinusitis post endoscopic sinus surgery. InternationalForum of Allergy & Rhinology. 2016;6(6):568-572. Delfino Y, Therese DA. Is topical high-volume budesonide sinus irrigation safe: The Laryngoscope. 2018;128(4):781-782. Supa JW, Gurpreet RJ. Topical corticosteroid irrigations in chronic rhinosinusitis. International Forum of Allergy & Rhinology. 2019;9(S1):9-15. Marv KA, Julio G, Jose B, Ankita L. Safety of long-term high-volume sinonasal budesonide irrigations for chronic rhinosinusitis. International Forum of Allergy & Rhinology. 2016;6(3):228-232. documented in this encounter Progress Notes * Kelly Miles MD - 10/22/2023 8:00 AM EST Images from the original note were not included. Prasanna Shipman is a 53 year old male with PMH ITP and CRS who presents s/p balloon dilation of frontal and maxillary sinuses on 10/16. ROS: No other symptoms experienced in constitutional, respiratory or ENT systems. Physical Exam: In general, the patient is well nourished and well developed in no apparent distress. Extraocular movements intact. Normal facial tone and symmetry. Anterior rhinoscopy demonstrated limited visualization and inability to see the sinus cavities adequately. No data to display 01/01/2023 4:15 PM Q-SCT During the past 2 weeks, how [...] for yoursinuses? No Sct Scoring 3 (controlled) Based upon the above history and physical exam, it was elected to perform endoscopy. Procedure: Nasal Endoscopy (CPT 03350) Indication: Symptoms suggestive of chronic rhinosinusitis. Due to limited visualization with anterior rhinoscopy that does not provide sufficient clinical information to establish a diagnosis, sinonasal endoscopy was performed using topical anesthetic and vasoconstrictors as needed. This is medically necessary following endoscopic sinus surgery. A repeat nasal endoscopy is medically necessary [...] middle meatus, superior meatus, and sphenoethmoidal recess have minimal mucus and expected degree of edema without polyps or purulence bilaterally, No epistaxis Olfactory cleft: Patent bilaterally Visualized portion of nasopharynx unremarkable Assessment and Plan: Encounter Diagnoses Name Primary? Chronic maxillary sinusitis Chronic frontal sinusitis Thrombocytopenia 53year old male with PMH ITP and CRS who presents s/p balloon dilation of frontal and maxillary sinuses on 10/16/2023. -I reviewed the pathophysiology of chronic rhinosinusitis with the patient, including medical management of the disease and recalcitrant nature of the symptoms. Plan to perform budesonide nasal rinses BID. Instructed to call in the interim with questions or concerns. -FU in 2-3 months with MANDY/PA (CD). I, Dr. Glasgow, saw and examined this patient with Dr. Kelly Miles. I performed the procedure I reviewed the note above and made revisions as needed and I agree with the plan as stated above. Raza Glasgow M.D. General Production Manager Rhinology, Endoscopic Sinus & Skull Base Surgery Division of Otolaryngology - Head and Neck Surgery [facility] Over 50% of this 30 minute visit was spent counseling or coordinating care and discussing medical and/or surgical treatments as described above. documented in this encounter Plan of Treatment Upcoming Encounters Date Type Department Care Team (Late st Contact Info) Description 01/28/2025 3:30 PM EDT Office [place] [address] Raza Glasgow MD [facility] [place] [address] documented as of this encounter Visit Diagnoses Diagnosis Chronic maxillary sinusitis Chronic frontal sinusitis Thrombocytopenia Thrombocytopenia, unspecified documented in this encounter Care Teams Roof Shingler Relationship Specialty Start Date End Date Marian Pierre MD [address] [place] [address] PCP - General Family Medicine 08/15/22 documented as of this encounter
--- OUTSIDE RECORDS SUMMARY | 2024-10-27 11:23 | XMS_ITS | Encounter Summary ---
Author Organization [facility] [address] Care Team Providers Care Pageant Director Name Role Phone Marian Pierre MD Primary Care Provider [phone] Encounter Details Date Type Department Care Team (Latest Contact Info) Description 11/15/2023 Travel Social History Tobacco Use Types Packs/Day Years Used Date Smoking Tobacco: Never Smokeless Tobacco: Never Alcohol Use Standard Drinks/Week Comments Not Currently 0 (1 standard drink = 0.6 oz pur e alcohol) once a month [facility] Inpatient Questions Answer Date Recorded [...] 3:30 PM EDT Office Visit [place] [address] Raza Glasgow MD [facility] [place] [address] documented as of this encounter Visit Diagnoses Not on filedocumented in this encounter Care Teams Pageant Director Relationship Specialty Start Date End Date Marian Pierre MD [address] [place] [id number] PCP - General Family Medicine 08/15/22 documented as of this encounter
--- OUTSIDE RECORDS SUMMARY | 2024-10-27 11:23 | XMS_ITS | Encounter Summary ---
Author [facility] [place] [address] Care Team Providers Care Winder Tender Name Role Phone Marian Pierre MD Primary Care Provider Encounter Details Date Type Department Care Team (Latest Contact Info) Description 10/03/2023 Travel Social History Tobacco Use Types Packs/Day [...] 3:30 PM EDT Office Visit [place] [address] Raza Glasgow MD [facility] [place] [address] documented as of this encounter Visit Diagnoses Not on filedocumented in this encounter Care Teams Winder Tender Relationship Specialty Start Date End Date Marian Pierre MD [address] [place] [address] PCP - General Family Medicine 08/15/22 documented as of this encounter
--- OUTSIDE RECORDS SUMMARY | 2024-10-27 11:23 | XMS_ITS | Encounter Summary ---
Author Organization [facility] [place] [address] Care Team Providers Care Centrifugal Casting Machine Tender Name Role Phone Marian Pierre MD Primary Care Provider [phone] Encounter Details Date Type Department Care Team (Latest Contact Info) Description 11/15/2023 3:00 PM EST Laboratory Appointment Lab [address] [place] [address] History of ITP Social History Tobacco Use Types Packs/Day Years Used Date Smoking Tobacco: Never Smokeless Tobacco: Never Alcohol Use Standard Drinks/Week Comments Not Currently 0 (1 standard drink = 0.6 oz pur e alcohol) once a month [facility] Inpatient Questions Answer Date Recorded Does [...] 3:30 PM EDT Office Visit [place] [address] Raza Glasgow MD [facility] [place] [address] documented as of this encounter Procedures Procedure Name Priority Date/Time Associated Diagnosis Comments SCAN, PERIPHERAL BLOOD STAT 11/15/2023 3:12 PM EST HEMOGRAM STAT 11/15/2023 3:12 PM EST History of ITP DIFFERENTIAL, AUTOMATED STAT 11/15/2023 3:12 PM EST History of ITP CBC (WITH DIFF) STAT 11/15/2023 3:12 PM EST History of ITP documented in this encounter Results * Scan, Peripheral Blood (11/15/2023 3:12 PM EST) Plat estimate Decreased [facility] RBC Morphology Abnormal [facility] Macrocyte 1-5 /HPF [facility] Ovalocytes 1-5 /HPF [facility] Tear Cell 1-5 /HPF [facility] Darin Cells 1-5 /HPF [facility] Blood 11/15/2023 3:12 PM EST 11/15/2023 3:19 PM EST Narrative Resulting Agency Comment Spec In Lab Norma Garrido DECISION UNIT RN HEMATOLOGY ORDERAB LES [facility] [place] [address] * Differential, Automated (11/15/2023 3:12 PM EST) Neutrophil % 44.8 % [facility] Neutrophil Absolute 2.17 1.70 - 6.10 x10(3)/[facility] Lymph % 42.8 % [facility] Lymphocytes Abs 2.1 0.9 - 3.2 x10(3)/[facility] Monocyte % 9.1 % [facility] Monocyte Abs 0.4 0.3 - 0.9 x10(3)/[facility] Eos % 2.5 % [facility] Eosinophils Abs 0.1 0.0 - 0.4 x10(3)/[facility] Basophil % 0.4 % [facility] Baso Absolute 0.0 0.0 - 0.1 x10(3)/[facility] Immature Gran % 0.40 % [facility] Comment: Immature granulocytes(IG's)percentage and absolute count will include metamyelocytes, myelocytes, and promyelocytes. Blood smears from CBCs yielding IG's will be scanned manually for concordance. If this scan disagrees with the automated IG or if promyelocytes are noted, a manual differential will be performed. Immature Gran Absolute 0.02 0.00 - 0.04 x10(3)/[facility] Blood 11/15/2023 3:12 PM EST 11/15/2023 3:19 PM EST Narrative Resulting Agency Comment Spec In Lab Norma Garrido DECISION UNIT RN HEMATOLOGY ORDERAB LES Performing Organization Address City/State/[facility] Co de Phone Number [facility] [place] [address] * (ABNORMAL) Hemogram (11/15/2023 3:12 PM EST) White Blood Cell 4.8 4.0 - 9.5 x10(3)/mc L [facility] Red Blood Cell 5.49 4.58 - 5.54 x10(6)/mc L [facility] Hemoglobin 15.7 13.7 - 16.5 g/dL [facility] Hematocrit 44.1 40.5 - 48.5 % [facility] Mean Cell Volume 80.3(L) 82.9 - 93.1 fL [facility] Mean Cell Hemoglobin 28.6 27.5 - 32.1 pg [facility] Mean Cell Hemoglobin Concentration 35.6 32.0 - 35.7 g/dL [facility] Platelet 31(L) 145 - 357 x10(3)/ L [facility] RDW Standard Deviation 37.0 36.0 - 45.0 fL [facility] RDW coefficient of variation 12.8 11.4 - 13.8 % [facility] Mean Platelet Volume Not Measured 7.6 - 12.9 fL [facility] NRBC% auto 0.0 % [facility] NRBC Absolute 0.000 0.000 - 0.000 x10(3)/mc L [facility] Blood 11/15/2023 3:12 PM EST 11/15/2023 3:19 PM EST Narrative Resulting Agency Comment Spec In Lab Norma Garrido DECISION UNIT RN HEMATOLOGY ORDERAB LES Performing Organization Address City/State/[facility] Co de Phone Number [facility] [place] [address] documented in this encounter Visit Diagnoses Diagnosis History of ITP Personal history of diseases of blood and blood-forming organs documented in this encounter Care Teams Centrifugal Casting Machine Tender Relationship Specialty Start Date End Date Marian Pierre MD [address] [place] [address] PCP - General Family Medicine 08/15/22 documented as of this encounter
--- OUTSIDE RECORDS SUMMARY | 2024-10-27 11:23 | XMS_ITS | Encounter Summary ---
Author Organization [facility] [place] [address] Care Team Providers Care Reel Operator Name Role Phone Marian Pierre MD Primary Care Provider [phone] Encounter Details Date Type Department Care Team (Latest Contact Info) Description 08/23/2023 Travel Social History Tobacco Use Types Packs/Day [...] 3:30 PM EDT Office [place] [address] Raza Glasgow MD [facility] [place] [address] documented as of this encounter Visit Diagnoses Not on filedocumented in this encounter Care Teams Reel Operator Relationship Specialty Start Date End Date Marian Pierre MD [address] [place] [id number] PCP - General Family Medicine 08/15/22 documented as of this encounter
--- OUTSIDE RECORDS SUMMARY | 2024-10-27 11:23 | XMS_ITS | Encounter Summary ---
Author Organization [facility] [place] [address] Care Team Providers Care Bobbin Doffer Name Role Phone Marian Pierre MD Primary Care Provider [phone] Encounter Details Date Type Department Care Team (Late st Contact Info) Description 10/01/2023 Orders Only Hematology [place] [phone] Norma Garrido APRN [facility] [address] [place] [address] Idiopathic thrombocytopenic purpura (Primary Dx) Social History Tobacco Use Types Packs/Day Years [...] 3:30 PM EDT Office [place] [address] Raza Glasgow MD [facility] [place] [address] documented as of this encounter Visit Diagnoses Diagnosis Idiopathic thrombocytopenic purpura- Primary Immune thrombocytopenic purpura documented in this encounter Care Teams Bobbin Doffer Relationship Specialty Start Date End Date Marian Pierre MD [address] [place] [address] PCP - General Family Medicine 08/15/22 documented as of this encounter
--- OUTSIDE RECORDS SUMMARY | 2024-10-27 11:23 | XMS_ITS | Encounter Summary ---
[place] [address] Care Team Providers Care Spin Instructor Name Role Phone Marian Pierre MD Primary Care Provider [phone] Reason for Visit * Auth/Cert (Routine) Specialty [...] (WRVU 3.18) MODIFIER,STEALTH 2,KINEVO Raza Glasgow MD [facility] [place] [place] [address] [facility] Referral ID Status Reason Start Date Expiration Date Visits Re quested Visits Authorized [id number] 1 Encounter Details Date Type Department Care Team (Late st Contact Info) Description 10/16/2023 2:36 PM EST - 10/16/2023 4:51 PM EST Surgery [place] [phone] Raza Glasgow MD [facility] [place] [address] NASAL/SINUS ENDOSCOPY, W/BALLOON DILATION OF MAXILLARY SINUS OSTIUM (WRVU 2.7) Social History Tobacco Use Types Packs/Day Years [...] Dodge RN - 10/16/2023 1:29 PM EST [place], [place] INFORMATION FOR TRANSFUSION RECIPIENTS: You [...] of these symptoms or need help, call [facility] at and ask to speak to your provider or the provider construction rigger. You may also call the provider construction rigger for the Blood Bank at . If you need emergency care, you should come to our Emergency Department or to any other hospital. Details of your transfusion will be available by calling [facility]. Policy Tech 77491 Revised 10/21 * Patient Instructions* Kelly Miles [...] sale packets such as those sold by [employer] can be purchased at most drug stores, [...] NECK SURGERY INTERVAL H&P NOTE Name: Prasanna Shipman Age/Sex: 53 y.o. male Attending: Raza Glasgow [...] scheduled operation. Kelly Miles MD, PGY5, Pager [phone] 10/16/23 1:40 PM ENT Team Pager: [phone] Associated attestation - Raza Glasgow MD - [...] plan as stated above. Raza Glasgow M.D. Concrete Pipe Machine Operator Rhinology, Endoscopic Sinus & Skull Base Surgery Division of Otolaryngology - Head and Neck Surgery [facility] documented in this encounter Miscellaneous Notes * Op Note - Raza Glasgow MD - 10/16/2023 2:57 PM EST PATIENT NAME: Prasanna Shipman SERVICE: Otolaryngology SURGEON: Raza Glasgow MD AUTO RADIATOR MECHANIC SURGEONS: Kelly Miles MD ANESTHESIA: General endotracheal. PREOPERATIVE DIAGNOSIS: Chronic sinusitis, thrombocytopenia, history COVID-19, olfactory impairment POSTOPERATIVE DIAGNOSIS: Same PROCEDURE: Bilateral endoscopic balloon dilation of frontal sinuses, CPT 97946-59 Bilateral endoscopic balloon dilation of maxillary sinuses, CPT 91956-10 Outfracture of inferior turbinates bilateral, CPT 65854-43 Stereotactic computer-assisted navigational cranial extradural, CPT 18046 ESTIMATED BLOOD LOSS: 20 mL RETAINED ITEMS: [...] 3:30 PM EDT Office [place] [address] Raza Glasgow MD [facility] [place] [place] [address] documented as of this encounter Procedures Procedure Name Priority Date/Time Associated Diagnosis Comments MODIFIER,STEALTH 2,KINEVO Yes 10/16/2023 2:34 PM EST Chronic pansinusitis Thrombocytopenia Nasal obstruction Stereotactic Cptr Asstd Px Cranial, Extradural ([id number]) Yes 10/16/2023 2:34 PM EST Chronic pansinusitis Thrombocytopenia Nasal obstruction Fracture Nasal Inferior Turbinate Therapeutic ([id number]) Yes 10/16/2023 2:34 PM EST Chronic pansinusitis Thrombocytopenia Nasal obstruction Nasal/Sinus Endoscopy Surg W/Dilation Frontal Sinus (74141) Yes 10/16/2023 2:34 PM EST Chronic pansinusitis Thrombocytopenia Nasal obstruction Nasal/Sinus Endoscopy Surg W/Dilation Maxillary Sinus (29942) Yes 10/16/2023 2:34 PM EST Chronic pansinusitis [...] Apheresis (10/16/2023 1:55 PM EST) Dispensed? Yes [facility] Blood 10/16/2023 1:55 PM EST 10/16/2023 1:52 PM EST Narrative Resulting Agency Comment Spec In Lab April Bloom MD BLOOD BANK PRODUCT O RDERABLES [facility] [place] [address] * (ABNORMAL) Platelet count (10/16/2023 1:13 PM EST) Platelet 50(L) 145 - 357 x10(3)/mc L [facility] Immature Plt % 10.2(H) 0.0 - 7.4 % [facility] Comment: Limitation of the Immature Platelet Fraction (IPF)-May be less reliable when the platelet count is less than 99v562/uL due to statistical imprecision. The IPF value [...] in a decreased state of production. References: [employer] The Clinical Value of the Immature Platelet Fraction (IPF) in Cell Recovery Document Number [id number] 04/2011 [employer] The Role of the Immature Platelet Fraction (IPF) in the Differential Diagnosis of Thrombocytopenia, Document MKT-[id number] V003/16/14 P0514 Blood 10/16/2023 1:13 PM EST 10/16/2023 1:25 PM EST Narrative Resulting Agency Comment Spec In Lab April Bloom MD HEMATOLOGY ORDERABLE S [facility] [place] [address] * Transfuse 1 unit platelets, apheresis (10/16/2023 1:07 PM EST) Raza Glasgow MD NURSING TREATMENT OR DERABLES - BLOOD ADMIN * Transfuse 1 unit platelets, apheresis (10/16/2023 1:07 PM EST) Raza Glasgow MD NURSING TREATMENT OR DERABLES - BLOOD ADMIN * Prepare Platelets, Apheresis (10/16/2023 11:35 AM EST) Dispensed? Yes [facility] Blood 10/16/2023 11:3 5 AM EST 10/16/2023 11:40 AM EST Narrative Resulting Agency Comment Spec In Lab Raza Glasgow MD BLOOD BANK PRODUCT O RDERABLES [facility] [place] [address] * SCAN DOC: LAB (10/16/2023 12:00 AM EST) Narrative 10/16/2023 12:00 AM EST Ordered by an unspecified provider. Scanning Provider MEDIA MGR SCAN EXT O RDR/RSLT documented in this encounter Visit Diagnoses Diagnosis Chronic pansinusitis Other chronic sinusitis Thrombocytopenia Thrombocytopenia, unspecified Nasal obstruction Other diseases of nasal cavity and sinuses Chronic pansinusitis Other chronic sinusitis Thrombocytopenia Thrombocytopenia, [...] Given 10/16/2023 12:12 PM EST 975 mg EPINEPHrine (Adrenalin) nasal solution PRN, Starting on Sun10/16/23 at 1445, Until Sun10/16/23 at 1904, Intra-Operative (Intra-Procedure), Routine Given 10/16/2023 2:45 PM EST 30 mLs 19- Surgical Site fentaNYL (pf) (50 mcg/mL) multi-dose injection 25 [...] Given 10/16/2023 4:31 PM EST 50 mcg fluorescein (BioGlo) ophthalmic strip PRN, Starting on Sun10/16/23 at 1446, Until Sun10/16/23 at 1904, Intra-Operative (Intra-Procedure), Routine Given 10/16/2023 2:46 PM EST 2 strips 19- Surgical Site oxymetazoline (Afrin) 0.05 % nasal spray 2 spray 2 spray, Each Nare, 2 TIMES DAILY, 6 doses, First dose on Sun10/16/23 at 2100, Last dose on Sun10/19/23 at 0900, Garden Tractor Mechanic recommended duration is 3 days., Routine documented [...] 2100, Last dose on Sun10/19/23 at 0900, Garden Tractor Mechanic recommended duration is 3 days., Routine PRN [...] Routine documented in this encounter Care Teams Spin Instructor Relationship Specialty Start Date End Date Marian Pierre MD [address] [place] [address] PCP - General Family Medicine 08/15/22 documented as of this encounter
--- OUTSIDE RECORDS SUMMARY | 2024-10-27 11:23 | XMS_ITS | Encounter Summary ---
[facility] [address] Care Team Providers Care Setter Molding And Coremaking Machines Name Role Phone Marian Pierre MD Primary Care Provider [phone] Encounter Details Date Type Department Care Team (Latest Contact Info) Description 10/15/2023 Travel Social History Tobacco Use Types Packs/Day Years Used Date Smoking Tobacco: Never Smokeless Tobacco: Never Alcohol Use Standard Drinks/Week Comments Not Currently 0 (1 standard drink = 0.6 oz pur e alcohol) once a month [facility] Inpatient Questions Answer Date Recorded [...] 3:30 PM EDT Office [place] [address] Raza Glasgow MD [facility] [place] [address] documented as of this encounter Visit Diagnoses Not on filedocumented in this encounter Care Teams Setter Molding And Coremaking Machines Relationship Specialty Start Date End Date Marian Pierre MD [address] [place] [address] PCP - General Family Medicine 08/15/22 documented as of this encounter
--- OUTSIDE RECORDS SUMMARY | 2024-10-27 11:23 | XMS_ITS | Encounter Summary ---
[facility] [place] [address] Care Team Providers Care Screen Printer Name Role Phone Marian Pierre MD Primary Care Provider [phone] Encounter Details Date Type Department Care Team (Late Contact Info) Description 10/01/2023 Orders [place] [phone] Raza Glasgow MD [facility] [place] [address] Thrombocytopenia Social History Tobacco Use Types Packs/Day [...] 3:30 PM EDT Office [place] [phone] Raza Glasgow MD [facility] [place] [address] documented as of this encounter Visit Diagnoses Diagnosis Thrombocytopenia Thrombocytopenia, unspecified documented in this encounter Care Teams Screen Printer Relationship Specialty Start Date End Date Marian Pierre MD [address] [place] [address] PCP - General Family Medicine 08/15/22 documented as of this encounter
--- OUTSIDE RECORDS SUMMARY | 2024-10-27 11:23 | XMS_ITS | Encounter Summary ---
[place] [address] Care Team Providers Care Lion Tamer Name Role Phone Marian Pierre MD Primary Care Provider [phone] Encounter Details Date Type Department Care Team (Late st Contact Info) Description 11/16/2023 Tele[place] [phone] Kacie San RN Social History Tobacco Use Types Packs/Day Years Used Date Smoking Tobacco: Never Smokeless Tobacco: Never Alcohol Use Standard Drinks/Week Comments Not Currently 0 (1 standard drink = 0.6 oz pur e alcohol) once a month [facility] Inpatient Questions Answer Date Recorded Does [...] encounter Miscellaneous Notes * Telephone Encounter - Kacie San RN - 11/16/2023 10:03 AM ESTSummary: RN called patient to relay provider guidance. RN called patient to relay provider guidance for use of mupirocin. Patient reports good understanding, and will call if additional assistance needed. documented in this encounter Plan of Treatment Upcoming Encounters Date Type Department Care Team (Late st Contact Info) Description 01/28/2025 3:30 PM EDT Office [place] [address] Raza Glasgow MD [facility] [place] [address] documented as of this encounter Visit Diagnoses Not on filedocumented in this encounter Care Teams Lion Tamer Relationship Specialty Start Date End Date Marian Pierre MD [address] [place] [address] [place] [address] PCP - General Family Medicine 08/15/22 documented as of this encounter
--- OUTSIDE RECORDS SUMMARY | 2024-10-27 11:23 | XMS_ITS | Encounter Summary ---
Author Organization [facility] [place] [address] Care Team Providers Care Industrial Painter Name Role Phone Marian Pierre MD Primary Care Provider [phone] Encounter Details Date Type Department Care Team (Latest Contact Info) Description 10/04/2023 3:20 PM EST Laboratory Appointment Lab [address] [place] [phone] Acute pain of left shoulder Social History [...] 3:30 PM EDT Office [place] [address] Raza Glasgow MD [facility] [place] [address] documented as of this encounter Procedures Procedure Name Priority Date/Time Associated Diagnosis Comments CRP, ACUTE INFLAMMATION Routine 10/04/2023 2:55 PM EST Acute pain of left shoulder SCAN, PERIPHERAL BLOOD Routine 2:55 PM EST HEMOGRAM Routine 10/04/2023 2:55 PM EST Acute pain of left shoulder DIFFERENTIAL, AUTOMATED Routine 10/04/2023 2:55 PM EST Acute pain of left shoulder SEDIMENTATION RATE Routine 10/04/2023 2: 55 PM EST Acute pain of left shoulder CBC (WITH DIFF) Routine 10/04/2023 2:55 PM EST Acute pain of left shoulder documented in this encounter Results * Scan, Peripheral Blood (10/04/2023 2:55 PM EST) Plat estimate Decreased [facility] RBC Morphology Abnormal [facility] Ovalocytes 1-5 /HPF [facility] Tear Cell 1-5 /HPF [facility] Blood 10/04/2023 2:55 PM EST 10/04/2023 3:02 PM EST Narrative Resulting Agency Comment Spec In Lab Osiris [facility] HEMATOLOG[facility] ORDERABLE S Performing Organization Address City/State/[facility] Co de Phone Number [facility] [place] [address] * Differential, Automated (10/04/2023 2:55 PM EST) Neutrophil % 46.0 % [facility] Neutrophil Absolute 2.43 1.70 - 6.10 x10(3)/[facility] LAB[facility] Lymph % 42.2 % [facility] Lymphocytes Abs 2.2 0.9 - 3.2 x10(3)/[facility] LABOR[facility] Monocyte % 8.1 % [facility] ITAL LABORAT[facility] Monocyte Abs 0.4 0.3 - 0.9 x10(3)/[facility] LABOR[facility] Eos % 2.5 % [facility] Eosinophils Abs 0.1 0.0 - 0.4 x10(3)/[facility] LAB[facility] Basophil % 0.6 % [facility] ITAL [facility] Baso Absolute 0.0 0.0 - 0.1 x10(3)/[facility] LAB[facility] Immature Gran % 0.60 % [facility] Comment: Immature granulocytes(IG's)percentage and absolute count will include metamyelocytes, myelocytes, and promyelocytes. Blood smears from CBCs yielding IG's will be scanned manually for concordance. If this scan disagrees with the automated IG or if promyelocytes are noted, a manual differential will be performed. Immature Gran Absolute 0.03 0.00 - 0.04 x10(3)/[facility] LAB[facility] Blood 10/04/2023 2:55 PM EST 10/04/2023 3:02 PM EST Narrative Resulting Agency Comment Spec In Lab Osiris [facility] HEMATOLOG[facility] ORDERABLE S [facility] [place] [address] * (ABNORMAL) Hemogram (10/04/2023 2:55 PM EST) White Blood Cell 5.3 4.0 - 9.5 x10(3)/mc L [facility] Red Blood Cell 5.39 4.58 - 5.54 x10(6)/[facility] LABORATORY Hemoglobin 15.7 13.7 - 16.5 g/dL [facility] Hematocrit 44.3 40.5 - 48.5 % [facility] Mean Cell Volume 82.2(L) 82.9 - 93.1 fL [facility] Mean Cell Hemoglobin 29.1 27.5 - 32.1 pg [facility] Mean Cell Hemoglobin Concentration 35.4 32.0 - 35.7 g/dL [facility] Platelet 35(L) 145 - 357 x10(3)/[facility] LAB[facility] RDW Standard Deviation 39.1 36.0 - 45.0 fL [facility] RDW coefficient of variation 13.2 11.4 - 13.8 % [facility] Mean Platelet Volume 13.7(H) 7.6 - 12.9 fL [facility] NRBC% auto 0.0 % [facility] ITAL [facility] NRBC Absolute 0.000 0.000 - 0.000 x10(3)/ L [facility] Blood 10/04/2023 2:55 PM EST 10/04/2023 3:02 PM EST Narrative Resulting Agency Comment Spec In Lab Osiris [facility] ORDERABLE S Performing Organization Address [facility] Co de Phone Number [facility] [place] [address] * Sedimentation rate (10/04/2023 2:55 PM EST) Sedimentation Rate Automated 6 2 - 37 mm/hr [facility] Comment: Effective October 15, 2019 new capillary photometric technology has resulted in a change in reference ranges. It is recommended that each ESR result be reviewed with its own age appropriate reference range. Blood 10/04/2023 2:55 PM EST 10/04/2023 3:02 PM EST Narrative Resulting Agency Comment Spec In Lab Devendra Bennett MD HEMATOLOGY ORDERABLE S Performing Organization Address [facility] Co de Phone Number [facility] [place] [address] * (ABNORMAL) CRP, acute inflammation (10/04/2023 2:55 PM EST) C-Reactive Protein 6.3(H) <=4.9 mg/L [facility] Blood 10/04/2023 2:55 PM EST 10/04/2023 3:02 PM EST Narrative Resulting Agency Comment Spec In Lab Devendra Bennett MD CHEMISTRY ORDERABLES Performing Organization Address [facility] Co de Phone Number [facility] [place] [address] documented in this encounter Visit Diagnoses Diagnosis Acute pain of left shoulder documented in this encounter Care Teams Industrial Painter Relationship Specialty Start Date End Date Marian Pierre MD [address] [place] [address] PCP - General Family Medicine 08/15/22 documented as of this encounter
--- OUTSIDE RECORDS SUMMARY | 2024-10-27 11:23 | XMS_ITS | Encounter Summary ---
[place] [address] Care Team Providers Care Curriculum Assistant Name Role Phone Marian Pierre MD Primary Care Provider [phone] Reason for Referral * Physical Therapy (Routine) - Closed Specialty Diagnoses / Procedures Referred By Den tamayo Referred To Contact Physical Therapy Diagnoses S/P arthroscopy of left shoulder Hattie Flor PA [facility] [place] [address] Referral ID Status Reason Start Date Expiration Date V isits Requested Visits Authorized [id number] Closed Evaluate and Treat 08/30/2023 02/26/2024 12 12 Reason for Visit * Reason Comments Post Op NXR LEFT BICEPS TE NDON REPAIR AND SHOULDER SCOPE Encounter Details Date Type Department Care Team (Late st Contact Info) Description 08/30/2023 4:00 PM EDT Office [place] [address] Hattie Flor PA [facility] [place] [address] s/p L shoulder distal clavicle excision, arthroscopic debridement, biceps tenodesis 08/13/23 Dr. Bennett (Primary Dx) Social History Tobacco Use Types [...] - Inhaled Oxygen Concentration - - Weight 99.8 kg (220 lb) 08/30/2023 3:53 PM EDT Height 176.5 cm (5' 9.49) 08/30/2023 3:53 PM ED T Body Mass Index 32.03 08/30/2023 3:53 PM EDT documented in this encounter Progress Notes * Hattie Flor PA - 08/30/2023 4:00 PM EDT Patient Name: Prasanna Shipman AGE: 53 y.o. MR#: [id number] Date of Visit: 08/30/2023 Procedure: Left shoulder arthroscopic debridement, open distal clavicle excision, open subpectoral tenodesis. 08/13/2023 (Dr. Bennett) Chief Complaint: ~2 weeks S/P above procedure History of Present Illness: Mr. Shipman is a 53 y.o. male who presents s/p the above procedures for office follow up. Reports that he is doing very well overall and he has started with physical therapy. He wore sling for approximately 1 week and has otherwise been feeling well. He is wondering about the findings during surgery. Denies numbness, tingling. Minimal pain he is only using Tylenol as needed however he finds that he is having some neck pain and difficulty lying flat at night. His physical therapist was using Kinesiotape over the shoulder and he has developed some irritation from this.He feels well without fevers, chills, shortness of breath, chest pain. 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 Physical Exam: Ht 176.5 cm (5' 9.49) Wt 99.8 kg (220 lb) BMI 32.03 kg/m?? General appearance: in no acute distress, alert, cooperative Psych: cooperative with exam, appropriate Head: normocephalic, atraumatic EENT: EOMI grossly intact Lungs: non-labored respirations Musculoskeletal: Inspection: incision site is healing well without erythema or drainage. I am unable to part the skin with gentle palpation. Nylon sutures in place. There is a erythematic papular rash in the pattern of his KT tape placement. Palpation: deferred ROM/Strength: Shoulder ROM forward flexion to approximately 120, did not push further. Deferred internal rotation. Elbow ROM 0-120, supination/pronation 80/80. Able to activate deltoid. Finger spread5/5 Orthopedic testing: deferred Neurovascular: sensation grossly intact to light touch of the upper extremity including axillary distribution, 2+ radial pulse Diagnostic Studies: No new images obtained today Assessment/Plan: Prasanna is a 53 y.o. male who presents s/p aforementioned procedure doing well. We reviewed intraoperative findings as well as operative pictures. Discussed procedures that were performed and restrictions. Since he has already discontinued his sling I think it is reasonable for him to stay out of it however he has days where he is uncomfortable or would like protection to avoid repetitive use and lifting of the arm to protect the tenodesis he may return to the sling. He should continue with physical therapy per protocol. Continue Tylenol if needed for pain relief. Sutures were removed today he may get the area wet. I do not think that he should be submerging it yet I recommend at least 2 more weeks before he uses a hot tub or submerges the area. He was in understanding and agreement with the plan. Updated PT referral given. Recommend monitoring rash and avoiding KT tape. Will try flexeril at night to help with spasms Questions solicited and answered. Prasanna understands to contact us if he has any other questions or concerns. Follow Up: 4 weeks no x-rays MARIELA Hall 08/31/2023 7:43 AM The above documentation was completed using [employer] voice recognition software. documented in this encounter Plan of Treatment Upcoming Encounters Date Type Department Care Team (Late st Contact Info) Description 01/28/2025 3:30 PM EDT Office [place] [address] Raza Glasgow MD [facility] [place] [address] Scheduled Referrals Name Type Priority Associated Diagnoses Orde r Schedule Referral to Physical Therapy Outpatient Referral Routine s/p L shoulder distal clavicle excision, arthroscopic debridement, biceps tenodesis 08/13/23 Dr. Bennett Ordered: 08/30/2023 documented as of this encounter Visit Diagnoses Diagnosis s/p L shoulder distal clavicle excision, arthroscopic debridement, biceps tenodesis 08/13/23 Dr. Bennett- Primary documented in this encounter Care Teams Curriculum Assistant Relationship Specialty Start Date End Date Marian Pierre MD [address] [place] [id number] PCP - General Family Medicine 08/15/22 documented as of this encounter
--- OUTSIDE RECORDS SUMMARY | 2024-10-27 11:23 | XMS_ITS | Encounter Summary ---
Author Organization [facility] [place] [address] Care Team Providers Care Storeperson Name Role Phone Marian Pierre MD Primary Care Provider [phone] Encounter Details Date Type Department Care Team (Latest Contact Info) Description 10/15/2023 6:45 AM EST Hospital Encounter Hematology [place] [phone] Idiopathic thrombocytopenic purpura Discharge Disposition: Home Social History Tobacco Use Types Packs/Day Years Used Date Smoking Tobacco: Never Smokeless Tobacco: Never Alcohol Use Standard Drinks/Week Comments Not Currently 0 (1 standard drink = 0.6 oz pur e alcohol) once a month [facility] Inpatient Questions Answer Date Recorded [...] Sign Reading Time Taken Comments Blood Pressure 126/81 10/15/2023 9:22 AM EST Pulse 84 10/15/2023 9:22 AM EST Temperature 36.5 ??C (97.7 ??F) 10/15/2023 9:22 AM ES T Respiratory Rate 18 10/15/2023 9:22 AM EST Oxygen Saturation 98% 10/15/2023 9:22 AM EST Inhaled Oxygen Concentration - - Weight - - Height - - Body Mass Index - - documented in this encounter Medications at Time [...] 10/04/2023 08/07/2024 documented as of this encounter Progress Notes * Marilia Stoddard RN - 10/15/2023 9:58 AM EST Patient Name: Prasanna Shipman Patient Age: 53 y.o. Birthdate: 1970 Admit date: 10/15/2023 Attending Physician: Agnes att. providers found TREATMENT START TIME: 837 TREATMENT END TIME: 944 Prasanna arrived for a platelet transfusion. After discussion with Norma Garrido APRN and Kacie Mcgovern MD, it was advised that the patient not receive the platelet transfusion today, but to receive during surgery tomorrow 10/16. Patient agreeable to this plan. He requested for the PIV to remain in place for tomorrow. Prasanna was educated on s/s of the PIV needing to be removed and that they may or may not be able to use it tomorrow. PIV flushed with good blood return and safely wrapped. All questions answered. documented in this encounter Plan of Treatment Upcoming Encounters Date Type Department Care Team (Late st Contact Info) Description 01/28/2025 3:30 PM EDT Office [place] [address] Raza Glasgow MD [facility] [place] [address] documented as of this encounter Procedures Procedure Name Priority Date/Time Associated Diagnosis Comments PREPARE PLATELETS, APHERESIS Routine 10/15/2023 8:30 AM EST Idiopathic thrombocytopenic purpura LAB SCAN 10/15/2023 12:00 AM EST documented in this encounter Results * Prepare Platelets, Apheresis (10/15/2023 8:30 AM EST) Dispensed? No [facility] Blood 10/15/2023 8:30 AM EST 10/15/2023 8:26 AM EST Narrative Resulting Agency Comment Spec In Lab Raza Glasgow MD BLOOD BANK PRODUCT O RDERABLES [facility] [place] [address] * SCAN DOC: LAB (10/15/2023 12:00 AM EST) Narrative 10/15/2023 12:00 AM EST Ordered by an unspecified provider. Scanning Provider MEDIA MGR SCAN EXT O RDR/RSLT documented in this encounter Visit Diagnoses Diagnosis Idiopathic thrombocytopenic purpura Immune thrombocytopenic purpura documented in this encounter Care Teams Storeperson Relationship Specialty Start Date End Date Marian Pierre MD [address] [place] [id number] PCP - General Family Medicine 08/15/22 documented as of this encounter
--- OUTSIDE RECORDS SUMMARY | 2024-10-27 11:24 | XMS_ITS | Encounter Summary ---
Author Organization [facility] [place] [address] Care Team Providers Care Sales Exhibitor Name Role Phone Marian Pierre MD Primary Care Provider [phone] Encounter Details Date Type Department Care Team (Latest Contact Info) Description 06/28/2023 12:42 PM EDT - 06/28/2023 11:59 PM EDT Hospital Encounter Hematology [place] [phone] History of ITP Discharge Disposition: Home Social [...] Take 6 mg by mouth every morning. omeprazole (PriLOSEC) 40 mg Capsule, Delayed Release(E.C.) [...] for 7 days. 14 tablet 10/16/2023 10/23/2023 azithromycin (Zithromax) 250 mg tablet Take 250 mg by mouth daily. 04/17/2023 07/04/2023 pramipexole (Mirapex) 0.5 mg tablet Take 0.5 mg by mouth nightly. 10/04/2023 metoprolol succinate XL (Toprol-XL) 25 mg ER 24 hr tabletIndications:Mild coronary artery disease Take 1 tablet by mouth daily. 90 tablet 3 04/18/2023 07/04/2023 rosuvastatin (Crestor) 20 mg tabletIndications:Mild coronary artery disease Take 1 tablet by mouth daily. 90 tablet 3 04/18/2023 07/04/2023 budesonide (Pulmicort) 0.5 mg/2 mL Suspension for Nebulization Mix 1 respule with 240 mL (8 oz) saline in irrigation bottle. Irrigate each nostril twice daily as directed. 360 mL 3 04/09/2023 07/04/2023 pramipexole (MIRAPEX) 1 mg TabletIndications:pt states he is taking .5 mg 0.5 mg. Indications: pt states he is taking .5 mg 10/19/2015 07/04/2023 documented as of this encounter Plan of Treatment Upcoming Encounters Date Type Department Care Team (Late st Contact Info) Description 01/28/2025 3:30 PM EDT Office [place] [address] Raza Glasgow MD [facility] [place] [address] documented as of this encounter Procedures Procedure Name Priority Date/Time Associated Diagnosis Comments HEMOGRAM STAT 06/28/2023 12:51 PM EDT History of ITP DIFFERENTIAL, AUTOMATED STAT 06/28/2023 12:51 PM EDT History of ITP CBC (WITH DIFF) STAT 06/28/2023 12:51 PM EDT History of ITP documented in this encounter Results * Differential, Automated (06/28/2023 12:51 PM EDT) Neutrophil % 51.0 % [facility] Neutrophil Absolute 2.59 1.70 - 6.10 x10(3)/[facility] LAB[facility] Lymph % 38.7 % [facility] Lymphocytes Abs 2.0 0.9 - 3.2 x10(3)/[facility] LAB[facility] Monocyte % 7.7 % [facility] Monocyte Abs 0.4 0.3 - 0.9 x10(3)/[facility] LAB[facility] Eos % 1.8 % [facility] Eosinophils Abs 0.1 0.0 - 0.4 x10(3)/[facility] LAB[facility] Basophil % 0.4 % [facility] Baso Absolute 0.0 0.0 - 0.1 x10(3)/[facility] LABORATORY Immature Gran % 0.40 % [facility] Comment: Immature granulocytes(IG's)percentage and absolute count will include metamyelocytes, myelocytes, and promyelocytes. Blood smears from CBCs yielding IG's will be scanned manually for concordance. If this scan disagrees with the automated IG or if promyelocytes are noted, a manual differential will be performed. Immature Gran Absolute 0.02 0.00 - 0.04 x10(3)/[facility] Blood 06/28/2023 12:5 1 PM EDT 06/28/2023 1:10 PM EDT Narrative Resulting Agency Comment Spec In Lab Norma Garrido BOXER OPERATOR HEMATOLOGY ORDERAB LES [facility] [place] [address] * (ABNORMAL) Hemogram (06/28/2023 12:51 PM EDT) White Blood Cell 5.1 4.0 - 9.5 x10(3)/mc L [facility] Red Blood Cell 5.41 4.58 - 5.54 x10(6)/mc L [facility] Hemoglobin 15.7 13.7 - 16.5 g/dL [facility] Hematocrit 43.4 40.5 - 48.5 % [facility] Mean Cell Volume 80.2(L) 82.9 - 93.1 fL [facility] Mean Cell Hemoglobin 29.0 27.5 - 32.1 pg [facility] Mean Cell Hemoglobin Concentration 36.2(H) 32.0 - 35.7 g/dL [facility] Platelet 37(L) 145 - 357 x10(3)/mc L [facility] RDW Standard Deviation 38.7 36.0 - 45.0 fL [facility] RDW coefficient of variation 13.4 11.4 - 13.8 % [facility] Mean Platelet Volume Not Measured 7.6 - 12.9 fL [facility] NRBC% auto 0.0 % [facility] NRBC Absolute 0.000 0.000 - 0.000 x10(3)/mc L [facility] Blood 06/28/2023 12:5 1 PM EDT 06/28/2023 1:10 PM EDT Narrative Resulting Agency Comment Spec In Lab Norma Garrido BOXER OPERATOR HEMATOLOGY ORDERAB LES [facility] [place] [address] documented in this encounter Visit Diagnoses Diagnosis History of ITP Personal history of diseases of blood and blood-forming organs documented in this encounter Care Teams Sales Exhibitor Relationship Specialty Start Date End Date Marian Pierre MD [address] [place] [address] PCP - General Family Medicine 08/15/22 documented as of this encounter
--- OUTSIDE RECORDS SUMMARY | 2024-10-27 11:24 | XMS_ITS | Encounter Summary ---
Author [facility] [place] [address] Care Team Providers Care Hat Sprayer Name Role Phone Marian Pierre MD Primary Care Provider [phone] Encounter Details Date Type Department Care Team (Latest Contact Info) Description 06/28/2023 Travel Social History Tobacco Use Types Packs/Day [...] 3:30 PM EDT Office [place] [address] Raza Glasgow MD [facility] [place] [address] documented as of this encounter Visit Diagnoses Not on filedocumented in this encounter Care Teams Hat Sprayer Relationship Specialty Start Date End Date Marian Pierre MD [address] [place] [id number] PCP - General Family Medicine 08/15/22 documented as of this encounter
--- OUTSIDE RECORDS SUMMARY | 2024-10-27 11:24 | XMS_ITS | Encounter Summary ---
[facility] [place] [address] Care Team Providers Care Letterpress Printing Machinist Name Role Phone Marian Pierre MD Primary Care Provider Encounter Details Date Type Department Care Team (Latest Contact Info) Description 05/22/2023 Travel Social History Tobacco Use Types Packs/Day Years Used Date Smoking Tobacco: Never Smokeless Tobacco: Never Alcohol Use Standard Drinks/Week Comments Yes 0 [...] 3:30 PM EDT Office [place] [address] Raza Glasgow MD [facility] [place] [address] documented as of this encounter Visit Diagnoses Not on filedocumented in this encounter Care Teams Letterpress Printing Machinist Relationship Specialty Start Date End Date Marian Pierre MD [address] [place] [phone] PCP - General Family Medicine 08/15/22 documented as of this encounter
--- OUTSIDE RECORDS SUMMARY | 2024-10-27 11:24 | XMS_ITS | Encounter Summary ---
Author Organization [facility] [place] [address] Care Team Providers Care Call Center Specialist Name Role Phone Marian Pierre MD Primary Care Provider [phone] Encounter Details Date Type Department Care Team (Late st Contact Info) Description 05/02/2023 Orders Only Hematology and Oncology at [place] [phone] Norma Garrido APRN [facility] [address] [place] [address] History of ITP Social History Tobacco Use [...] 3:30 PM EDT Office [place] [address] Raza Glasgow MD [facility] [place] [address] documented as of this encounter Visit Diagnoses Diagnosis History of ITP Personal history of diseases of blood and blood-forming organs documented in this encounter Care Teams Call Center Specialist Relationship Specialty Start Date End Date Marian Pierre MD [address] [place] [address] PCP - General Family Medicine 08/15/22 documented as of this encounter
--- OUTSIDE RECORDS SUMMARY | 2024-10-27 11:24 | XMS_ITS | Encounter Summary ---
Author [facility] [place] [address] Care Team Providers Care Nutrition Teacher Name Role Phone Marian Pierre MD Primary Care Provider [phone] Encounter Details Date Type Department Care Team (Latest Contact Info) Description 05/15/2023 Travel Social History Tobacco Use Types Packs/Day [...] 3:30 PM EDT Office [place] [address] Raza Glasgow MD [facility] [place] [address] documented as of this encounter Visit Diagnoses Not on filedocumented in this encounter Care Teams Nutrition Teacher Relationship Specialty Start Date End Date Marian Pierre MD [address] [place] [id number] PCP - General Family Medicine 08/15/22 documented as of this encounter
--- OUTSIDE RECORDS SUMMARY | 2024-10-27 11:24 | XMS_ITS | Encounter Summary ---
Author Organization [facility] [place] [address] Care Team Providers Care Sample Prep Technician Name Role Phone Marian Pierre MD Primary Care Provider [phone] Reason for Visit * Reason Comments Pre-op Exam PRE OP 08/13/2023 LEF T BICEPS TENDON REPAIR AND SHOULDER SCOPE Encounter Details Date Type Department Care Team (Late st Contact Info) Description 08/06/2023 9:00 AM EDT Office [place] [address] Fuad Toussaint MD [facility] [place] [address] Preop examination; Superior glenoid labrum lesion of left shoulder, subsequent encounter Social History Tobacco Use Types Packs/Day [...] Sign Reading Time Taken Comments Blood Pressure 138/88 08/06/2023 8:37 AM EDT Pulse 76 08/06/2023 8:37 AM EDT Temperature - - Respiratory Rate - - Oxygen Saturation 97% 08/06/2023 8:37 AM EDT Inhaled Oxygen Concentration - - Weight 102.1 kg (225 lb) 08/06/2023 8:37 AM EDT Height 175.3 cm (5' 9) 08/06/2023 8:37 AM EDT Body Mass Index 33.23 08/06/2023 8:37 AM EDT documented in this encounter Progress Notes * Fuad Toussaint MD - 08/06/2023 9:00 AM EDTSummary: Will need CBC the day of surgery and platelet transfusion as per Dr. Rebolledo's input Images from the original note were not included. CC: Prasanna Shipman is a 53 y.o. male with the following problems and medications that is being seen in the clinic for consultation at the request of his surgeon Dr. Devendra Bennett for preoperative risk stratification and management recommendations in anticipation of left biceps tendon repair and arthroscopic debridement. HPI - Pain - Location - left shoulder, Quality - aching, sharp Onset - after working out in [employer], Duration - several months, Intensity - moderate to severe, Aggravating factors - lifting, raising or twisting Alleviating factors - APAP, rest, topical, Associated - he has chronic ITP followed per Dr. Rebolledo and plan is for platelet transfusion with surgeries. He also has plan for sinus surgery in October. 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 IRRIGATE EACH NOSTRIL TWICE DAILY DIRECTED rosuvastatin (Crestor) 20 mg tablet Take 0.5 tablets by mouth daily. 45 tablet 3 pramipexole (Mirapex) 0.5 mg tablet Take 0.5 mg by mouth nightly. omeprazole (PriLOSEC) 40 mg Capsule, Delayed Release(E.C.) Take 40 mg by mouth daily. acetaminophen (Tylenol) 500 mg Tablet Take 1,000 mg by mouth every 6 hours as needed for Pain. multivitamin Tablet, Chewable Take by mouth. cetirizine (ZYRTEC) 10 mg Tablet PRN No current facility-administered medications for this visit. Social History Occupational History Not on file Tobacco Use Smoking status: Never Smokeless tobacco: Never Vaping Use Vaping Use: Never used Substance and Sexual Activity Alcohol use: Not Currently Comment: once a month Drug use: No Sexual activity: Not on file Family History Problem Relation Age of Onset Hypertension Father High Blood Pressure Father Thyroid Disease Sister hashimotos Hypertension Brother Hyperlipidemia Brother Depression Maternal Uncle Review of Systems Constitutional: Negative for chills, diaphoresis and fever. His myalgia and fatigue have improved with lower dose of statin and off the metoprolol. Respiratory: Negative for cough, shortness of breath and wheezing. Cardiovascular: Negative for current angina, palpitations and leg swelling. Gastrointestinal: Negative for abdominal pain, anal bleeding and recent blood in stool. He has about 8 BMs per day. Endocrine: Negative for polydipsia and polyphagia. Genitourinary: Negative for dysuria, flank pain and hematuria. Skin: Negative for pallor and rash. Allergic/Immunologic: Negative for worsening environmental allergies and immunocompromised state. Neurological: Negative for syncope and speech difficulty. Hematological: Does bruise easily. Denies recent melena, gum or nose bleed. Psychiatric/Behavioral: Negative for confusion, decreased concentration and dysphoric mood. Allergies: Allergies Allergen Reactions Pollen, Micronized Itching Watery eyes and sneezing Physical Exam: Last Set of Vitals and Range over past 24 hours: Last value Range last 24 hrs Heart Rate Heart Rate: 76 Heart Rate: [76] Blood Pressure BP: 138/88 BP: (138)/(88) SpO2 SpO2: 97 % SpO2: [97 %] Estimated body mass index is 33.23 kg/m?? as calculated from the following: Height as of this encounter: 175.3 cm (5' 9). Weight as of this encounter: 102.1 kg (225 lb). Physical Exam Constitutional: He is oriented to person, place, and time. He appears well- developed. No distress. HENT: Head: Normocephalic and atraumatic. Eyes: Right eye exhibits no discharge. Left eye exhibits no discharge. No scleral icterus. Neck: Neck supple. No JVD present. Cardiovascular: Normal rate, regular rhythm and normal heart sounds. Exam reveals no gallop and no friction rub. No murmur heard. Pulmonary/Chest: Effort normal and breath sounds normal. No stridor. No respiratory distress. He has no wheezes, no rales. He exhibits no spinal tenderness. Abdominal: Soft. Bowel sounds are normal. Notable splenomegaly percussed and palpated with tenderness on palpation. There is no CVA tenderness. There is no rebound and no guarding. Musculoskeletal: He exhibits no edema. He has no drift with AFE at left shoulder. He has resolving ecchymosis about his lower anterior left arm. Mobile lipomatous lesion over his mid to lower left anterior arm that is about 3cm or so. Neurological: He is alert and oriented to person, place, and time. He exhibits no resting or intentional tremors. Skin: Skin is warm and dry. He is not diaphoretic. No pallor. Psychiatric: He has a normal mood and affect. His behavior is normal. Judgment and thought content normal. Lab Results Component Value Date WBC 5.1 06/28/2023 RBC 5.41 06/28/2023 HGB 15.7 06/28/2023 HCT 43.4 06/28/2023 MCV 80.2 (L) 06/28/2023 MCH 29.0 06/28/2023 MCHC 36.2 (H) 06/28/2023 PLATELET 37 (L) 06/28/2023 RDWCV 13.4 06/28/2023 Lab Results Component Value Date NA 139 02/21/2023 K 4.4 02/21/2023 CL 102 02/21/2023 CO2 25 02/21/2023 BUN 21 (H) 02/21/2023 CREATININE 1.22 02/21/2023 GLUCOSE 92 02/21/2023 CALCIUM 9.4 02/21/2023 ESTGFR 72 02/21/2023 Lab Results Component Value Date AST 17 02/21/2023 ALT 39 02/21/2023 ALKPHOS 88 02/21/2023 BILITOT 0.4 02/21/2023 BILIDIR 0.1 04/19/2016 Lab Results Component Value Date CRP 2.4 07/04/2023 Stress Tests - PET MPI May 2023 IMPRESSION No ischemia or scar. Left ventricular function is normal. Normal coronary flow reserve. MRI left shoulder A/P 1. Preop examination 2. Superior glenoid labrum lesion of left shoulder, subsequent encounter He elects to proceed with the surgery for improved activity tolerance. Regards his chronic ITP - the plan is for platelet transfusion on day of surgery. A CBC the day of surgery could be done to determine this. Defer ongoing management of this to Dr. Rebolledo. Major Risk Factor per the Revised Cardiac Risk Index (Bold if present) - There is no history of CHF, CVA or TIA, DM2 on insulin, or a Creatinine >2. He has mild non obstructive CAD per CTA but a reassuring recent PET stress test. Risk diagnosis for MACE (major adverse cardiovascular event = Myocardial infarction, pulmonary edema, ventricular fibrillation, primary cardiac arrest, or complete heart block.) : Low <1% . 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 ARISCAT/CANET Score - estimates the risk of postoperative pulmonary complications as being low ~3.5%. Patient instructions:Do NOT take APAP or MVI the morning of surgery. Continue other medications. documented in this encounter Plan of Treatment Upcoming Encounters Date Type Department Care Team (Late st Contact Info) Description 01/28/2025 3:30 PM EDT Office [place] [address] Raza Glasgow MD [facility] [place] [address] documented as of this encounter Visit Diagnoses Diagnosis Preop examination Preoperative examination, unspecified Superior glenoid labrum lesion of left shoulder, subsequent encounter documented in this encounter Care Teams Sample Prep Technician Relationship Specialty Start Date End Date Marian Pierre MD [address] [place] [id number] PCP - General Family Medicine 08/15/22 documented as of this encounter
--- OUTSIDE RECORDS SUMMARY | 2024-10-27 11:24 | XMS_ITS | Encounter Summary ---
Author Organization [facility] [place] [address] Care Team Providers Care Recordist Chief Name Role Phone Marian Pierre MD Primary Care Provider [phone] Encounter Details Date Type Department Care Team (Latest Contact Info) Description 05/03/2023 7:35 AM EDT Laboratory Appointment Lab [address] [place] [address] History of ITP Social History Tobacco Use [...] 3:30 PM EDT Office [place] [address] Raza Glasgow MD [facility] [place] [address] documented as of this encounter Procedures Procedure Name Priority Date/Time Associated Diagnosis Comments SCAN, PERIPHERAL BLOOD STAT 05/03/2023 7:42 AM EDT HEMOGRAM STAT 05/03/2023 7:42 AM EDT History of ITP DIFFERENTIAL, AUTOMATED STAT 05/03/2023 7:42 AM EDT History of ITP CBC (WITH DIFF) STAT 05/03/2023 7:42 AM EDT History of ITP documented in this encounter Results * Scan, Peripheral Blood (05/03/2023 7:42 AM EDT) Plat estimate Decreased [facility] RBC Morphology Normal [facility] Atypical Lymph Moderate [facility] Blood 05/03/2023 7:42 AM EDT 05/03/2023 7:48 AM EDT Narrative Resulting Agency Comment Spec In Lab Norma Robina Garrido [employer] HEMAT[employer]Y [employer] [facility] [place] [address] * Differential, Automated (05/03/2023 7:42 AM EDT) Neutrophil % 46.1 % [facility] Neutrophil Absolute 2.32 1.70 - 6.10 x10(3)/[facility] Lymph % 43.3 % [facility] Lymphocytes Abs 2.2 0.9 - 3.2 x10(3)/[facility] Monocyte % 7.8 % [facility] Monocyte Abs 0.4 0.3 - 0.9 x10(3)/[facility] Eos % 2.0 % [facility] Eosinophils Abs 0.1 0.0 - 0.4 x10(3)/[facility] Basophil % 0.4 % [facility] Baso Absolute 0.0 0.0 - 0.1 x10(3)/[facility] Immature Gran % 0.40 % [facility] Comment: Immature granulocytes(IG's)percentage and absolute count will include metamyelocytes, myelocytes, and promyelocytes. Blood smears from CBCs yielding IG's will be scanned manually for concordance. If this scan disagrees with the automated IG or if promyelocytes are noted, a manual differential will be performed. Immature Gran Absolute 0.02 0.00 - 0.04 x10(3)/mcL [facility] Blood 05/03/2023 7:42 AM EDT 05/03/2023 7:48 AM EDT Narrative Resulting Agency Comment Spec In Lab Norma Garrido [employer] HEMAT[employer] [facility] [place] [address] * (ABNORMAL) Hemogram (05/03/2023 7:42 AM EDT) White Blood Cell 5.0 4.0 - 9.5 x10(3)/mc L [facility] Red Blood Cell 5.51 4.58 - 5.54 x10(6)/mc L [facility] Hemoglobin 15.7 13.7 - 16.5 g/dL [facility] Hematocrit 44.8 40.5 - 48.5 % [facility] Mean Cell Volume 81.3(L) 82.9 - 93.1 fL [facility] Mean Cell Hemoglobin 28.5 27.5 - 32.1 pg [facility] Mean Cell Hemoglobin Concentration 35.0 32.0 - 35.7 g/dL [facility] Platelet 37(L) 145 - 357 x10(3)/mc L [facility] RDW Standard Deviation 36.9 36.0 - 45.0 fL [facility] RDW coefficient of variation 12.4 11.4 - 13.8 % [facility] Mean Platelet Volume 13.8(H) 7.6 - 12.9 fL [facility] NRBC% auto 0.0 % [facility] NRBC Absolute 0.000 0.000 - 0.000 x10(3)/mc L [facility] Blood 05/03/2023 7:42 AM EDT 05/03/2023 7:48 AM EDT Narrative Resulting Agency Comment Spec In Lab Norma Garrido [employer] H[employer]AT[employer] [facility] [place] [address] documented in this encounter Visit Diagnoses Diagnosis History of ITP Personal history of diseases of blood and blood-forming organs documented in this encounter Care Teams Recordist Chief Relationship Specialty Start Date End Date Marian Pierre MD [address] [place] [phone] PCP - General Family Medicine 08/15/22 documented as of this encounter
--- OUTSIDE RECORDS SUMMARY | 2024-10-27 11:24 | XMS_ITS | Encounter Summary ---
Author Organization [facility] [place] [address] Care Team Providers Care Keno Clerk Name Role Phone Marian Pierre MD Primary Care Provider [phone] Reason for Referral * Physical Therapy (Routine) - Closed Specialty Diagnoses / Procedures Referred By Den tamayo Referred To Contact Physical Therapy Diagnoses Superior glenoid labrum lesion of left shoulder, initial encounter Devendra Bennett MD [facility] [place] [address] Referral ID Status Reason Start Date Expiration Date V isits Requested Visits Authorized [id number] Closed Evaluate and Treat 08/06/2023 02/02/2024 12 12 Reason for Visit * Reason Comments Pre-op Exam CASE REQ 08/13/2023 L EFT BICEPS TENDON REPAIR AND SHOULDER SCOPE Left Encounter Details Date Type Department Care Team (Late st Contact Info) Description 08/06/2023 10:40 AM EDT Office [place] [address] Devendra Bennett MD [facility] [place] [address] Superior glenoid labrum lesion of left shoulder, initial encounter Social History Tobacco Use Types Packs/Day [...] - Inhaled Oxygen Concentration - - Weight 102.1 kg (225 lb) 08/06/2023 10:29 AM EDT Height 175.3 cm (5' 9) 08/06/2023 10:29 AM EDT Body Mass Index 33.23 08/06/2023 10:29 AM EDT documented in this encounter Progress Notes * Remy Luther - 08/06/2023 10:40 AM EDT Images from the original note were not included. Upper Extremity Pre-Operative Patient Education Procedure: Left Upper procedures: Shoulder Arthroscopy Post-op Imaging order placed: No H&P: To be completed Dr. Toussaint Consent: The surgical consent was reviewed with Prasanna by Dr. Dr. Bennett. Procedure, risks, and benefits were reviewed. Questions were solicited and answered. The Prasanna understands these and the surgical consent was signed. Problems with pain medication in the past?: no If yes, drug and reaction: N/A DME/Physical Therapy: Prasanna was given a DME order for sling. This can be obtained from any DME provider or medical equipment company. He was given a referral for physical therapy and a post operative protocol for their procedure today.. Prasanna understands the expectations around post operative rehabilitation and that this is an important component of their recovery. Prasanna was instructed PT to start 2 weeks s/p surgery date. Discussed making sure they take care of early childhood assistant, sleeping situations, and having help with ADL'sbefore day of surgery. Dicussed time frame for sling or post-op splint. Prasanna was given a bottle of Hibiclens to be used in the shower the night before and the morning of their procedure. Showering instructions were reviewed. Medications and Pain Management: Reviewed with Prasanna to discontinue use of NSAIDS and Aspirin 7 days before surgery. Chronic anti-coagulation: no Anticoagulation plan post op: POSTOPANTICOAG: ASA 81mg Aspirin BID for 14 days 08/06/2023 10:40 AM Opioid PDMP [place] PDMP Query Date 08/06/2023 [place] PDMP Query Date 08/06/2023 [place] PDMP Query Date 08/06/2023 Prasanna Shipman is being prescribed a prescription opioid for the treatment of acute post-operative pain related to Orthopedic surgery. Prasanna Shipman has been advised to take the smallest dose possibleto control their pain and as their pain improves to take smaller doses and increase the time between doses. In addition to this medication, non-opioid medications have been prescribed for adjunct treatment of their pain. Non-pharmacological treatment such as ice, elevation and activity modification have been recommended as appropriate. The Acute Opioid Therapy Informed Consent form has been completed and sent to medical records for scanning to chart. Written material given Patient education - shoulder: Shoulder Scope Information Packet?? Questions solicited and answered. Prasanna knows to call with any additional questions or concerns. Patient advised to read discharge instructions for specific recommendations about medication use, dressing care, sling use ect. after surgery. Will the patient require VNA services post-op: No EN Cha, VTLAT, [employer], Orthopedics and Sports Medicine Tel Fax [facility] * Devendra Bennett MD - 08/06/2023 10:40 AM EDT Orthopaedic Office Note - New Patient Attending: Dr. Bennett Prasanna Shipman is a 53 y.o. male who presents to see us in consultation today at the request of: No referring provider defined for this encounter. Chief Complaint: Left shoulder pain History of Present Illness: Prasanna Shipman is a 53 y.o. male who comes in today complaining of left shoulder pain. The patient reports 3 months ago he was doing push-ups when he felt acute pain in the left shoulder. Since that he has difficulty lifting objects and significant amount of left shoulder pain. He has tried physical therapy for 6 weeks without relief. Of note the patient has ITP with a recent platelet of 37, hematology plan pending. He is also beingevaluated for positive cardiac stress test. He has had no prior injections to the left shoulder Interval history: We initially planned for the patient undergo injections and possible calcium barbotage. He reflected on this and ultimately decided that he did not want to pursue this. In the setting of a labral tear, he felt strongly that he wanted to move forward with definitive surgery. He follows today to discuss this more and to prepare for surgery. Objective: Temp: -- Heart Rate: -- Resp: -- BP: -- SpO2: -- Heart Rate from SpO2: -- Examination: GENERAL: Well appearing, appropriate NEUROVASCULAR: Sensation intact to light touch in the Left upper extremity. Warm and well perfused hand. SKIN: No significant abrasions or lesions about the shoulder. MUSCULOSKELETAL: Left Shoulder Examination Visible abnormality: No Scapulothoracic Rhythm: Normal Rotator Cuff Atrophy: No Tenderness to palpation: Yes, anterior and posterior shoulder Palpable crepitus: No Range of motion: Forward Elevation: 150 with pain External Rotation: 60 Internal Rotation: L5 Strength Testing: Abduction: 4/5 With Pain External Rotation: 4/5 With Pain Resisted Internal Rotation: 4/5 With Pain Rotator Cuff Testing: Empty Can/Arcenio's: Positive Belly Press: Negative Biceps/Labrum: Groove TTP: Positive Speeds: Positive Dolores's: Positive Resisted Thrower's: Positive AC Joint TTP: Negative / Cross-body: Negative Impingement Neer's: Positive Hawkin's: Positive Imaging: MRI shoulder SLAP tear as well as calcium deposition in the distal supraspinatus tendon. No full thickness tear. Assessment/Plan: 53 y.o. male who presents with calcific tendinitis of the left supraspinatus and aleft shoulder SLAP tear. We previously discussed operative versus nonoperative management in detail. He does feel strongly that he like to move forward with surgery. We discussed that surgery would likely make him better but not perfect. Surgery [...] and benefits of surgery, the patient would liketo move forward with the procedure. Consent was signed in the office today. We will move forward with surgery as scheduled. Of note, the patient does have thrombocytopenia. We discussed that this could increase his risk of bleeding. We will have him come in and get a CBC on the morning of surgery. If necessary we will give him a platelet infusion. Devendra Bennett MD documented in this encounter Plan of Treatment Upcoming Encounters Date Type Department Care Team (Late st Contact Info) Description 01/28/2025 3:30 PM EDT Office Visit [place] [address] Raza Glasgow MD [facility] [place] [address] Scheduled Referrals Name Type Priority Associated Diagnoses Orde r Schedule Referral to Physical Therapy Outpatient Referral Routine Superior glenoid labrum lesion of left shoulder, initial encounter Ordered: 08/06/2023 documented as of this encounter Results * XR Shoulder Left (Generic) (08/06/2023 12:21 PM EDT) Anatomical Region Laterality Modality Shoulder Left Digital Radiogra phy Impressions 08/06/2023 5:45 PM EDT 1. ??No acute fracture or dislocation. 2. ??Mild left shoulder osteoarthropathy. 3. ??Calcific tendinitis of the supraspinatus. I have personally reviewed the image(s) and the resident's interpretation and agree with the findings, Jim Holly MD at 08/06/2023 5:45 PM Thank you for letting us participate in the care of this patient. ??If you are a health care provider and have any questions regarding this report, please contact the number below. ??For patients who have questions please contact the health child caregiver private home that requested your imaging first. ? Electronically signed by: Jim Holly MD, [facility] ([phone]), at 08/06/2023 5:45 PM Narrative 08/06/2023 5:45 PM EDT EXAMINATION: XR SHOULDER LEFT (GENERIC) CLINICAL HISTORY: pain (as entered by ordering provider) TECHNIQUE: 4 views LEFT shoulder COMPARISON: Left shoulder MRI 05/28/2023 FINDINGS: There is no fracture or malalignment. There are a few small osteophytes of the acromioclavicular and glenohumeral joints. Amorphous calcific foci superior tendinitis of the supraspinatus tendon The included left lung is clear. Procedure Note Jim Holly MD - 08/06/2023 EXAMINATION: XR SHOULDER LEFT (GENERIC) CLINICAL HISTORY: pain (as entered by ordering provider) TECHNIQUE: 4 views LEFT shoulder COMPARISON: Left shoulder MRI 05/28/2023 FINDINGS: There is no fracture or malalignment. There are a few small osteophytes of the acromioclavicular andglenohumeral joints. Amorphous calcific foci superior tendinitis of the supraspinatus tendon The included left lung is clear. IMPRESSION 1. No acute fracture or dislocation. 2. Mild left shoulder osteoarthropathy. 3. Calcific tendinitis of the supraspinatus. I have personally reviewed the image(s) and the resident's interpretationand agree with the findings, Jim Holly MD at 08/06/2023 5:45 PM Thank you for letting us participate in the care of this patient. If youare a health care provider and have any questions regarding this report,please contact the number below. For patients who have questions please contactthe health child caregiver private home that requested your imaging first. Devendra Bennett MD IMG DX ORDERABLES documented in this encounter Visit Diagnoses Diagnosis Superior glenoid labrum lesion of left shoulder, initial encounter Superior glenoid labrum lesion of left shoulder, initial encounter documented in this encounter Care Teams Keno Clerk Relationship Specialty Start Date End Date Marian Pierre MD [address] [place] [address] PCP - General Family Medicine 08/15/22 documented as of this encounter
--- OUTSIDE RECORDS SUMMARY | 2024-10-27 11:24 | XMS_ITS | Encounter Summary ---
Author Organization [facility] [place] [address] Care Team Providers Care Hospital Monitor Name Role Phone Marian Pierre MD Primary Care Provider [phone] Encounter Details Date Type Department Care Team (Late st Contact Info) Description 08/01/2023 [place] [phone] Lara Mccann Social History Tobacco Use Types Packs/Day Years [...] 3:30 PM EDT Office [place] [phone] Raza Glasgow MD [facility] [place] [address] documented as of this encounter Visit Diagnoses Not on filedocumented in this encounter Care Teams Hospital Monitor Relationship Specialty Start Date End Date Marian Pierre MD [address] [place] [id number] PCP - General Family Medicine 08/15/22 documented as of this encounter
--- OUTSIDE RECORDS SUMMARY | 2024-10-27 11:24 | XMS_ITS | Encounter Summary ---
Author Organization [facility] [place] [address] Care Team Providers Care Distribution Technician Name Role Phone Marian Pierre MD Primary Care Provider [phone] Encounter Details Date Type Department Care Team (Latest Contact Info) Description 05/22/2023 7:27 AM EDT - 05/22/2023 7:40 AM EDT Hospital Encounter [place] [phone] History of ITP Discharge Disposition: Home Social [...] 3:30 PM EDT [place] [address] Raza Glasgow MD [facility] [place] [address] documented as of this encounter Procedures Procedure Name Priority Date/Time Associated Diagnosis Comments HEMOGRAM STAT 05/22/2023 7:35 AM EDT History of ITP DIFFERENTIAL, AUTOMATED STAT 05/22/2023 7:35 AM EDT History of ITP CBC (WITH DIFF) STAT 05/22/2023 7:35 AM EDT History of ITP documented in this encounter Results * Differential, Automated (05/22/2023 7:35 AM EDT) Neutrophil % 46.1 % [facility] Neutrophil Absolute 2.09 1.70 - 6.10 x10(3)/[facility] Lymph % 41.1 % [facility] Lymphocytes Abs 1.9 0.9 - 3.2 x10(3)/[facility] Monocyte % 9.5 % [facility] Monocyte Abs 0.4 0.3 - 0.9 x10(3)/[facility] Eos % 2.2 % [facility] Eosinophils Abs 0.1 0.0 - 0.4 x10(3)/[facility] Basophil % 0.4 % [facility] Baso Absolute 0.0 0.0 - 0.1 x10(3)/[facility] Immature Gran % 0.70 % [facility] Comment: Immature granulocytes(IG's)percentage and absolute count will include metamyelocytes, myelocytes, and promyelocytes. Blood smears from CBCs yielding IG's will be scanned manually for concordance. If this scan disagrees with the automated IG or if promyelocytes are noted, a manual differential will be performed. Immature Gran Absolute 0.03 0.00 - 0.04 x10(3)/[facility] Blood 05/22/2023 7:35 AM EDT 05/22/2023 7:48 AM EDT Narrative Resulting Agency Comment Spec In Lab Jenna Alejandro APRN HEMATOLOGY ORDER [facility] [address] * (ABNORMAL) Hemogram (05/22/2023 7:35 AM EDT) Pathologist [facility] White Blood Cell 4.5 4.0 - 9.5 x10(3)/mc L [facility] Red Blood Cell 5.65(H) 4.58 - 5.54 x10(6)/mc L [facility] Hemoglobin 16.2 13.7 - 16.5 g/dL [facility] Hematocrit 45.9 40.5 - 48.5 % [facility] Mean Cell Volume 81.2(L) 82.9 - 93.1 fL [facility] Mean Cell Hemoglobin 28.7 27.5 - 32.1 pg [facility] Mean Cell Hemoglobin Concentration 35.3 32.0 - 35.7 g/dL [facility] Platelet 33(L) 145 - 357 x10(3)/mc L [facility] RDW Standard Deviation 37.1 36.0 - 45.0 fL [facility] RDW coefficient of variation 12.6 11.4 - 13.8 % [facility] Mean Platelet Volume 11.3 7.6 - 12.9 fL [facility] NRBC% auto 0.0 % [facility] NRBC Absolute 0.000 0.000 - 0.000 x10(3)/mc L [facility] Blood 05/22/2023 7:35 AM EDT 05/22/2023 7:48 AM EDT Narrative Resulting Agency Comment Spec In Lab Jenna Alejandro APRN HEMATOLOGY ORDER [facility] [place] [address] documented in this encounter Visit Diagnoses Diagnosis History of ITP Personal history of diseases of blood and blood-forming organs documented in this encounter Care Teams Distribution Technician Relationship Specialty Start Date End Date Marian Pierre MD [address] [place] [address] PCP - General Family Medicine 08/15/22 documented as of this encounter
--- OUTSIDE RECORDS SUMMARY | 2024-10-27 11:24 | XMS_ITS | Encounter Summary ---
[place] [address] Care Team Providers Care Kitchen Food Server Name Role Phone Marian Pierre MD Primary Care Provider [phone] Reason for Visit * Auth/Cert (Routine) Specialty Diagnoses / Procedures Referred By Contac t Referred To Contact Diagnoses Left shoudler labral tear, calcific tendonitis Procedures PRO REPAIR OF BICEPS TENDON AT ELBOW PRO SHLDR ARTHROSCOP, EXTEN DEBRIDE TENODESIS, BICEPS TENDON (DISTAL) (WRVU 8.08) ARTHROSCOPY SHOULDER DEBRIDEMENT EXTENSIVE (WRVU 7.98) MODIFIER BEACH CHAIR Devendra Hussein MD [facility] [place] [address] [facility] Referral ID Status Reason Start Date Expiration Date Visits Re quested Visits Authorized [id number] 1 1 Encounter Details Date Type Department Care Team (Late st Contact Info) Description 08/13/2023 3:58 PM EDT Anesthesia [place] [phone] Solo [address] MD [facility] [place] [place] [address] Stephen Dominguez MD Anesthesia Record Procedure Summary Procedure Name Responsible Anesthesiologist Anesthesia Start Time Anesthesia Stop Time TENODESIS,BICEPS TENDON (PROXIMAL) (WRVU 10.17) (Left: Arm) Solo Lane MD 08/13/23 1558 08/13/23 1809 Events Date Time Event Comment 08/13/2023 1302 1558 AN Verify 1558 Start 1558 An Start Data 1602 An Induction 1604 An Intubation 1605 Anesthesia Ready 1629 Procedure Start 1711 Handoff Intra-procedure anesthesia care was transferred after review of the patient's history, current anesthetic/surgical status and procedural plan, anticipated issues and expected post-operative course (including disposition.) Terrell Yuan, ELECTRIC FORK OPERATOR 1751 Extubation/LMA Out 180 an stop data 1809 Recovery or ICU Handoff Patrica ent care was transferred to the destination unit staff after review of the patient's medical history, current anesthetic/surgical status and plan, according to the Provider Handoff Checklist. 180 Stop Meds Name Total ROpivacaine 0.5% 30 mL Propofol 200 mg fentaNYL 100 mcg Midazolam 2 mg IV Lidocaine 60 mg Dexamethasone 4 mg Ondansetron 4 mg tranexamic acid (Cyklokapron) (100 mg/mL ) infusion 1,550 mg 1,550 mg ceFAZolin (Ancef) 2 g vial a ttach to sodium chloride 0.9% 100 mL Mini-Bag Plus 2 g Lactated Ringers 0 mL * Agents Name O2 Air N2O Sevoflurane (et) * Blood No blood administrations on file. Lines, Drains, and Airways Type Details Placement Removal Incision 08/13/23; 1741; Left ; axilla; arthroscopic punctures (specify) (5 incisions total) 08/13/23 1741 by Dayne Lees, RN (RETIRED) Peripheral IV Line - Single Lumen 08/13/23; 1335; basilic vein (medial side of arm), right; [id number] catheter system; Anatomical Landmarks; US Not Used; 18 gauge; shanti LAWSON; distraction, intradermal injection; no longer indicated, removed per policy/procedure, catheter/device intact; 08/14/23; 1033 08/13/23 1335 by Jaylon Sanders, RN 08/14/23 1033 by Britney Mayfield LPN (RETIRED) Peripheral IV Line - Single Lumen 08/13/23; 1543; basilic vein (medial side of arm), right; [id number] catheter system; Yes - US guidance used but Image NOT saved; 18 gauge; no longer indicated, catheter/device intact, removed per policy/procedure; 08/14/23; 1033 08/13/23 1543 by Britney Loomis RN 08/14/23 1033 by Britney Mayfield LPN Supraglottic Mask Ventilation: Ea sy (1); LMA Type: iGel; LMA Size: 4; Inserted by: [email or web address]; Removal Date: 08/13/23; Removal Time: 17508/13/23 1604 by Terrell Yuan CRNA 08/13/23 1751 by Terrell Yuan CRNA documented in this encounter Social History [...] OR Notes * Anesthesia Postprocedure Evaluation - Solo Lane MD - 08/13/2023 6:42 PM EDT Department of Anesthesiology Post-procedure Note Patient: Prasanna Shipman Procedure Summary Date: 08/13/23 Room / Location: [facility] OR [facility] MAIN OR Anesthesia Start: 1558 Anesthesia Stop: 180 Procedures: TENODESIS, BICEPS TENDON (DISTAL) (WRVU 8.08) (Left: Arm) ARTHROSCOPY SHOULDER DEBRIDEMENT EXTENSIVE (WRVU 7.98) (Left: Shoulder) [facility] Diagnosis: (Left shoudler labral tear, calcific tendonitis) Surgeons: Devendra Bennett MD Responsible Provider: Solo Lane MD Anesthesia Type: general ASA Status: 3 All Anesthesia Providers: Anesthesiologist: Solo Lane MD; Terrell Costa MD ELECTRIC FORK OPERATOR: Terrell Yuan CRNA Vitals Value Taken Time BP 124/94 08/13/23 1830 Temp 36.8 ??C (98.2 ??F) 08/13/23 1754 Pulse 74 08/13/23 1842 Resp 23 08/13/23 1842 SpO2 92 % 08/13/23 1842 Pain Level 0 08/13/23 1754 Vitals shown include unvalidated device data. Patient Location: PACU/[facility] Level of Consciousness: Awake and Alert Pain Management: Satisfactory Analgesia PONV: None Cardiovascular Status: At Baseline and Hemodynamically Stable Respiratory Status: Supplemental O2 (NC or FM) Postoperative Fluid Status: Intravascular EUvolemia Possible Anesthetic Complications: NONE apparent at time of evaluation Final Primary Anesthesia Type: General (The anesthetic type performed was the same as planned.) Comments: Solo Lane MD * Anesthesia Procedure Notes - Lupillo Lazcano MD - 08/13/2023 3:42 PM EDT Associated Order(s): Anesthesia Block Anesthesia Block Date/Time: 08/13/2023 3:36 PM Start Time: 08/13/2023 3:36 PM End Time: 08/13/2023 3:42 PM Patient Location: Block Room The patient was greeted; the risks and benefits of the procedure were reviewed. Indication: Post-op Pain Control Post-op pain management at the request of surgeon. Block Type: Interscalene nerve block Laterality: Left Position: Supine Prep: Mask, cap, sterile gloves, hand hygeine and chlorhexidine Skin Anesthetic: Skin Anesthetic: Lidocaine 1% dose: 3 Block Technique: R-potcm-bokac 22 5 cm Ultrasound Guided: YES and in-plane Ultrasound Image Saved Ultrasound guidance was used to identify the targeted neuronal structure. Ultrasound was also used to identify needle position and to identify tissue (bone, muscle, and blood vessels) to prevent inadvertent intraneural or intravascular needle placement and injection. The spread of local anesthetic was confirmed with live ultrasound imaging. Single-Shot: Single-shot Local Anesthetic Volume(s) Injected for Nerve Block: ROpivacaine 0.5% - Perineural 30 mL - 08/13/2023 3:36:00 PM Nerve Sensory/MotorTest: Events: no complications Notes: Interscalene: 25 ml SCP: 5 ml Performed by: Fellow: Stephen Dominguez MD Attending Physician: Lupillo Lazcano MD Authorized by: Lupillo Lazcano MD * Anesthesia Preprocedure Evaluation - Solo Lane MD - 08/11/2023 4:53 PM EDT Pre-Anesthesia Evaluation for: Prasanna Shipman a 53 y.o. male. Procedure(s): TENODESIS, BICEPS TENDON (DISTAL) (WRVU 8.08) ARTHROSCOPY SHOULDER DEBRIDEMENT EXTENSIVE (WRVU 7.98) MODIFIER [facility] Patient Active Problem List Diagnosis Date Noted ??? Mild coronary artery disease 04/17/2023 ??? [...] 09/10/2018 CT Guided Injection SI Joint 09/10/2018 [facility] RAD CAT SCAN ??? CT GUIDED NERVE BLOCK LUMBAR SINGLE LEVEL 08/05/2019 CT Guided Nerve Block Lumbar Single Level 08/05/2019 [facility] RAD CAT SCAN ??? PRO UNLISTED [...] Physical Exam: Preprocedure Vitals Current as of 08/11/23 1653 No BP, pulse, respiration, SpO2, or temperature recorded. Height: 175.3 cm (5' 9) (08/06/23) Weight: 102.1 kg (225 lb) (08/06/23) BMI: 33.22 IBW: 70.7 kg (155 lb 15.1 oz) Airway Assessment: Mallampati: II TM distance: >3 FB Neck ROM: full Cardiovascular Assessment: Rhythm: regular Rate: normal Pulmonary Assessment: unlabored breathing Dental Assessment: - normal exam Misc Assessment: Patient is wearing No contact(s). Last Filed Perioperative Cognitive Screening None Anesthesia Plan: ASA 3 general, with a(n) intravenous induction Prasanna Shipman is a 53 y.o. male (102kg BMI 33) with a hx significant for left shoulder labral tear presenting for surgical repair. PMHx: obese, CAD (nonobstructive a/o 03/2023), asthma, ITP (chronic thrombocytopenia ranging 37-59 between 4482-8299, most recently 39 a/o 06/28/2023), HLD, splenomegaly No current facility-administered medications for this encounter. Current Outpatient Medications: ?? budesonide (Pulmicort) 0.5 mg/2 mL Suspension for Nebulization, MIX 1 RESPULE WITH 240 ML (8 OZ)SALINE IN IRRIGATION BOTTLE. IRRIGATE EACH NOSTRIL TWICE DAILY DIRECTED, Disp: , Rfl: ?? rosuvastatin (Crestor) 20 mg tablet, Take 0.5 tablets by mouth daily., Disp: 45 tablet, Rfl: 3 ?? pramipexole (Mirapex) 0.5 mg tablet, Take 0.5 mg by mouth nightly., Disp: , Rfl: ?? omeprazole (PriLOSEC) 40 mg Capsule, Delayed Release(E.C.), Take 40 mg by mouth daily., Disp: , Rfl: ?? multivitamin Tablet, Chewable, Take by mouth., Disp: , Rfl: ?? cetirizine (ZYRTEC) 10 mg Tablet, PRN, Disp: , Rfl: ?? acetaminophen (Tylenol) 500 mg Tablet, Take 1,000 mg by mouth every 6 hours as needed for Pain.,Disp: , Rfl: NKDA Nuclear pharm stress PET (05/2023 obtained for chest pain): NSR at rest and stress, no ischemic concern. Labs: Recent Labs 06/28/23 1251 05/22/23 0735 05/03/23 0742 WBC 5.1 4.5 5.0 HGB 15.7 16.2 15.7 HCT 43.4 45.9 44.8 PLATELET 37* 33* 37* Recent Labs 02/21/23 0953 NA 139 K 4.4 CL 102 CO2 25 BUN 21* CREATININE 1.22 Recent Labs 02/21/23 0953 AST 17 ALT 39 ALKPHOS 88 BILITOT 0.4 No results for input(s): PT, INR, PTT in the last 168 hours. Lab Results Component Value Date ABORH A Pos 02/21/2023 Anesthesia Hx: NPO adequate. Denies CP SOB or URI. Activity prior to surgery: METS>4. No prior airway/anesthesia record. Pt denies any complications from anesthesia and any Fhx of complications with anesthesia. Plan: general anesthesia; discussed increased risk of nerve injury in setting of baseline thrombocytopenia. Patient expresses understanding and wishes to proceed with nerve block preop. Region - Other Informed Consent: Anesthetic plan and risks discussed with spouse and patient. Plan discussed with ELECTRIC FORK OPERATOR, fellow and attending. Anesthesia Screening documented in this encounter Plan of Treatment Upcoming Encounters Date Type Department Care Team (Late st Contact Info) Description 01/28/2025 3:30 PM EDT Office [place] [address] Raza Glasgow MD [facility] [place] [address] documented as of this encounter Procedures Procedure Name Priority Date/Time Associated Diagnosis Comments ANESTHESIA BLOCK Routine 08/13/2023 3:36 PM EDT documented in this encounter Results * Anesthesia Block (08/13/2023 3:36 PM EDT) Narrative Lupillo Lazcano MD - 08/13/2023 3:36 PM EDT Lupillo Lazcano MD ? 08/13/2023 ??3:44 PM Anesthesia Block Date/Time: 08/13/2023 3:36 PM Start Time: ??08/13/2023 3:36 PM End Time: ??08/13/2023 3:42 PM Patient Location: ??Block Room The patient was greeted; the risks and benefits of the procedure were reviewed. ?? Indication: ??Post-op Pain Control Post-op pain management at the request of surgeon. ?? Block Type: ??Interscalene nerve block Laterality: ??Left Position: ??Supine Prep: ??Mask, cap, sterile gloves, hand hygeine and chlorhexidine Skin Anesthetic: ??Skin Anesthetic: ??Lidocaine 1% ??dose: ??3 Block Technique: ?? E-krqkh-hdvfp ?? 22 ?? 5 cm ??Ultrasound Guided: ??YES and in-plane ??Ultrasound Image Saved ?Ultrasound guidance was used to identify the targeted neuronal structure. Ultrasound was also used to identify needle position and to identify tissue (bone, muscle, and blood vessels) to prevent inadvertent intraneural or intravascular needle placement and injection. The spread of local anesthetic was confirmed with live ultrasound imaging. ?Single-Shot: ??Single-shot Local Anesthetic Volume(s) Injected for Nerve Block: ?? ROpivacaine 0.5% - Perineural 30 mL - 08/13/2023 3:36:00 PM Nerve Sensory/MotorTest: ??Events: no complications ?? Notes: ?? Interscalene: 25 ml SCP: 5 ml Performed by: ?? Fellow: ?Stephen Dominguez MD ?? Attending Physician: ? Lupillo Lazcano MD Authorized by: Lupillo Lazcano MD Lupillo Lazcano MD VETERINARY X RAY OPERATOR [facility] documented in this encounter Visit Diagnoses Not on filedocumented in this encounter Administered Medications Inactive Administered Medications - up to 3 most recent administrations Medication Order MAR Action Action Date Dose Rate Site ceFAZolin (Ancef) 2 g vial attach to sodium chloride 0.9% 100 mL Mini-Bag Plus 2 g, Intravenous, EVERY 4 HOURS, 1 dose, First dose on 08/13/23 at 1330, Administer over 30 Minutes, Redose after 4 hours., Day of Surgery (Day of Procedure), Indication for (Active or Suspected): Prophylaxis New Bag 08/13/2023 4:14 PM EDT 2 g dexAMETHasone (Decadron) injection Intravenous, PRN, Starting on Sun08/13/23 at 1615, Until Sun08/13/23 at 1809, Anesthesia Intra-op, Routine Given 08/13/2023 4:15 PM EDT 4 mg fentaNYL (pf) (50 mcg/mL) multi-dose injection Intravenous, PRN, Starting on Sun08/13/23 at 1711, Until Sun08/13/23 at 1809, Anesthesia Intra-op, Routine Given 08/13/2023 5:33 PM EDT 50 mcg Given 08/13/2023 5:11 PM EDT 50 mcg lactated ringers infusion Intravenous, CONTINUOUS PRN, Starting on Sun08/13/23 at 1624, Until Sun08/13/23 at 1809, Anesthesia Intra-op New Bag 08/13/2023 4:24 PM EDT lidocaine (pf) (Xylocaine) (20 mg/mL) 2% injection syringe Intravenous, PRN, Starting on Sun08/13/23 at 1602, Until Sun08/13/23 at 1809, Anesthesia Intra-op, Routine Given 08/13/2023 4:02 PM EDT 60 mg midazolam (pf) (Versed) (1 mg/mL) multi-dose injection Intravenous, PRN, Starting on Sun08/13/23 at 1557, Until Sun08/13/23 at 1809, Anesthesia Intra-op, Routine Given 08/13/2023 3:57 PM EDT 2 mg ondansetron (pf) (Zofran) (2 mg/mL) injection Intravenous, PRN, Starting on Sun08/13/23 at 1733, Until Sun08/13/23 at 1809, Anesthesia Intra-op, Routine Given 08/13/2023 5:33 PM EDT 4 mg propofoL (Diprivan) 10 mg/mL bolus injection (Anesthesia) Intravenous, PRN, Starting on Sun08/13/23 at 1602, Until Sun08/13/23 at 1809, Anesthesia Intra-op Given 08/13/2023 4:02 PM EDT 200 mg ROpivacaine (PF) (Naropin) 0.5% (5 mg/mL) injection Perineural, Starting on Sun08/13/23 at 1536, Until Sun08/13/23 at 1536, Anesthesia Intra-op, Routine Given 08/13/2023 3:36 PM EDT 30 mLs tranexamic acid (Cyklokapron) (100 mg/mL) infusion 1,550 mg 1,550 mg (rounded from 1,549.5 mg = 15 mg/kg/dose ? 103.3 kg), Intravenous, ONCE, 1 dose, On 08/13/23 at 1330, Administer no faster than 100 mg/min., Day of Surgery (Day of Procedure), STAT Given 08/13/2023 4:14 PM EDT 1,550 mg documented in this encounter Care Teams Kitchen Food Server Relationship Specialty Start Date End Date Marian Pierre MD [address] [place] [id number] PCP - General Family Medicine 08/15/22 documented as of this encounter
--- OUTSIDE RECORDS SUMMARY | 2024-10-27 11:24 | XMS_ITS | Encounter Summary ---
[place] [address] Care Team Providers Care Software Development Manager Name Role Phone Marian Pierre MD Primary Care Provider [phone] Reason for Referral * Consultation (Routine) - Closed Specialty Diagnoses / Procedures Referred By Contac t Referred To Contact Orthopaedics Diagnoses Superior glenoid labrum lesion of left shoulder, initial encounter London Glez MD [facility] [place] [address] [facility] [address] Referral ID Status Reason Start Date Expiration Date V isits Requested Visits Authorized [id number] Closed Consult, Test & Treat 06/28/2023 06/27/2024 1 1 Reason for Visit * Reason Comments Left Shoulder Pain DOI April 2023( push- ups in Gym) * Consultation (Routine) - Closed Specialty Diagnoses / Procedures Referred By Contac t Referred To Contact Orthopaedics Diagnoses Injury, shoulder and upper arm, left, initial encounter Marian Pierre MD [address] [place] [id number] [facility] [address] [place] [phone] Referral ID Status Reason Start Date Expiration Date V isits Requested Visits Authorized [id number] Closed Consult, Test & Treat PCP Updated and/or Approved 06/05/2023 06/04/2024 6 6 Encounter Details Date Type Department Care Team (Late st Contact Info) Description 06/28/2023 1:20 PM EDT Office [place] [address] Devendra Bennett MD [facility] [place] [address] Superior glenoid labrum lesion of left shoulder, [...] - - Weight 99.8 kg (220 lb) 06/28/2023 1:01 PM EDT Height 175.3 cm (5' 9) 06/28/2023 1:01 PM EDT Body Mass Index 32.49 06/28/2023 1:01 PM EDT documented in this encounter Progress Notes * London Glez MD - 06/28/2023 1:20 PM EDT Orthopaedic Office Note - New Patient Attending: Dr. Bennett Prasanna Shipman is a 52 y.o. male who presents to see us in consultation today at the request of: Marian Pierre MD [address] [place] [address] Chief Complaint: Left shoulder pain History of Present Illness: Prasanna Shipman is a 52 y.o. male who comes in today complaining [...] no prior injections to the left shoulder Past Medical History: Patient Active Problem List Diagnosis Code Thrombocytopenia D69.6 Multiple lipomas D17.9 Obesity E66.9 Spleen enlarged R16.1 Right buttock pain M79.18 Chest pressure R07.89 Pure hypertriglyceridemia E78.1 Mild coronary artery disease I25.10 Past Surgical History: Past Surgical History: Procedure Laterality Date CT GUIDED INJECTION SI JOINT 09/10/2018 CT Guided Injection SI Joint 09/10/2018 [facility] RAD CAT SCAN CT GUIDED NERVE BLOCK LUMBAR SINGLE LEVEL 08/05/2019 CT Guided Nerve Block Lumbar Single Level 08/05/2019 [facility] RAD CAT SCAN PRO UNLISTED PROCEDURE, MUSCULOSKELETAL SYSTEM, GENERAL Knee PRO UNLISTED PX UR SYS June, Vasectomy Allergies: Allergies Allergen Reactions Pollen, Micronized Itching Watery eyes and sneezing Medications: pramipexole (Mirapex) 0.5 mg tablet metoprolol succinate XL (Toprol-XL) 25 mg ER 24 hr tablet rosuvastatin (Crestor) 20 mg tablet budesonide (Pulmicort) 0.5 mg/2 mL Suspension for Nebulization omeprazole (PriLOSEC) 40 mg Capsule, Delayed Release(E.C.) acetaminophen (Tylenol) 500 mg Tablet multivitamin Tablet, Chewable azithromycin (Zithromax) 250 mg tablet mometasone (ELOCON) 0.1 % Solution cetirizine (ZYRTEC) 10 mg Tablet pramipexole (MIRAPEX) 1 mg Tablet Social History: Social History Socioeconomic History Marital status: Spouse name: Not on file Number of children: Not on file Years of education: Not on file Highest education level: Not on file Occupational History Not on file Tobacco Use Smoking status: Never Smokeless tobacco: Never Vaping Use Vaping Use: Never used Substance and Sexual Activity Alcohol use: Not Currently Comment: once a month Drug use: No Sexual activity: Not on file Other Topics Concern Exercise: Patient reported Yes Abuse or Threat: Physical, Sexual, Verbal No Social History Narrative Not on file Social Determinants of Health Financial Resource Strain: Not on file Food Insecurity: Not on file Transportation Needs: Not on file Physical Activity: Not on file Housing Stability: Not on file Review of Systems: As above, otherwise negative Objective: Temp: -- Heart Rate: -- Resp: [...] No Range of motion: Forward Elevation: 150 External Rotation: 60 Internal Rotation: L5 Strength Testing: Abduction: 4/5 With Pain External Rotation: 4/5 With Pain Resisted Internal Rotation: 4/5 With Pain Rotator Cuff Testing: Empty Can/Arcenio's: Positive Belly Press: Negative Biceps/Labrum: Groove TTP: Positive Speeds: Positive Chesapeake's: Positive Resisted Thrower's: Positive AC Joint TTP: Negative / Cross-body: Negative Impingement Neer's: Positive Hawkin's: Positive Imaging: MRI shoulder SLAP tear as well as calcium deposition in the distal supraspinatus tendon. No full thickness tear. Assessment/Plan: 52 y.o. male who presents with calcific tendinitis of the left supraspinatus and aleft shoulder SLAP tear. Discussed pursuing nonoperative management of the patient's pain. We will plan to refer the patientto Dr. Guillen for the humeral steroid injection as well as needle barbotage of the supraspinatus tendon. We will check with Dr. Guillen if any further management of the patient's low platelet count is needed prior to injection. Additionally, we will plan to see the patient/phone call in 3 months afterinjection if pain persists or worsens. If pain persists or worsens we can consider surgery at that time pending clearance from the patient's other medical teams. Plan: -Referral to Dr. Guillen for needle barbotage of the supraspinatus and glenohumeral joint injection Follow-up: -3 months if pain persists or worsens for repeat injection with Dr. Guan versus surgical discussion. London Glez MD * Devendra Bennett MD - 06/28/2023 1:20 PM EDT Orthopaedic Surgery Attending Note: I have seen and examined the patient in conjunction with the orthopaedic resident physician. I agree with the note as documented. documented in this encounter Plan of Treatment Upcoming Encounters Date Type Department Care Team (Late st Contact Info) Description 01/28/2025 3:30 PM EDT Office [place] [address] Raza Glasgow MD [facility] [place] [address] Scheduled Referrals Name Type Priority Associated Diagnoses Order Schedule Referral to Orthopaedics Outpatient Referral Routine Superior glenoid labrum lesion of left shoulder, initial encounter Ordered: 06/28/2023 documented as of this encounter Visit Diagnoses Diagnosis Superior glenoid labrum lesion of left shoulder, initial encounter documented in this encounter Care Teams Software Development Manager Relationship Specialty Start Date End Date Marian Pierre MD [address] [place] [phone] PCP - General Family Medicine 08/15/22 documented as of this encounter
--- OUTSIDE RECORDS SUMMARY | 2024-10-27 11:24 | XMS_ITS | Encounter Summary ---
[place] [address] Care Team Providers Care Hog Scalder Name Role Phone Marian Pierre MD Primary Care Provider [phone] Encounter Details Date Type Department Care Team (Late st Contact Info) Description 07/31/2023 Telephone [place] [phone] Coco Mi Social History Tobacco Use Types Packs/Day Years [...] encounter Miscellaneous Notes * Telephone Encounter - Coco Mi - 07/31/2023 10:06 AM EDT Henry, Patient is scheduled to have surgery on 10/16/2023 . Follow up appointment is as follows: Postoperative Follow-Up POD [address] Glasgow (Ok if it is +/- 2 days) Prasanna would like a call from the nurses he has a few questios. Thank you!! documented in this encounter Plan of Treatment Upcoming Encounters Date Type Department Care Team (Late st Contact Info) Description 01/28/2025 3:30 PM EDT Office Visit [place] [address] Raza Glasgow MD [facility] [place] [address] documented as of this encounter Visit Diagnoses Not on filedocumented in this encounter Care Teams Hog Scalder Relationship Specialty Start Date End Date Marian Pierre MD [address] [place] [phone] PCP - General Family Medicine 08/15/22 documented as of this encounter
--- OUTSIDE RECORDS SUMMARY | 2024-10-27 11:24 | XMS_ITS | Encounter Summary ---
Author Organization [facility] Address [facility] [place] [address] Care Team Providers Care Alarm Installer Name Role Phone Marian Pierre MD Primary Care Provider Encounter Details Date Type Department Care Team (Latest Contact Info) Description 07/04/2023 2:00 PM EDT Office Visit Cardiology at [address] [address] Anthony Caceres, PA [facility] [place] [address] Preop cardiovascular exam; Mild coronary artery disease Social History Tobacco Use Types Packs/Day Years [...] Sign Reading Time Taken Comments Blood Pressure 139/85 07/04/2023 1:49 PM EDT Pulse 76 07/04/2023 1:49 PM EDT Temperature - - Respiratory Rate - - Oxygen Saturation 100% 07/04/2023 1:49 PM EDT Inhaled Oxygen Concentration - - Weight 103.3 kg (227 lb 12.8 oz) 07/04/2023 1:49 PM EDT Height 177.8 cm (5' 10) 07/04/2023 1:49 PM EDT Body Mass Index 32.69 07/04/2023 1:49 PM EDT documented in this encounter Patient Instructions * Patient Instructions* Anthony Caceres PA - 07/04/2023 2:00 PM EDT Stop metoprolol as likely contributing to fatigue, memory fog etc. Reassuring that stress test looked good. Reduce rosuvastatin to 1/2 tab of 20mg daily. Potential contributer to leg fatigue/achiness. If you have concerns at home, please call [phone] during normal business hours OR [phone] after hours and ask to speak to regulatory affairs portfolio leader youth development professional. Office follow-up in [address] Tyler. documented in this encounter Progress Notes * Anthony Caceres PA - 07/04/2023 2:00 PM EDT Images from the original note were not included. [facility] [place] [address] Subjective: Patient ID: Prasanna Shipman is a 52 y.o. male presents for routine 3-month follow- up visit review normal cardiac stress PET. Patient Active Problem List Diagnosis Mild coronary artery disease Coronary CTA: 1. Predominantly calcified plaque in the distal left main causes less than50% luminal narrowing. Predominantly noncalcified plaque in the proximal LAD causes less than 50% luminal narrowing. Calcified plaques in the proximal and mid RCA cause no luminal narrowing. 2. Coronary calcium score of 86, consistent with mild atherosclerotic plaque burden and 87%-ile rank based on age, race/ethnicity, and gender. CAD-RADS 2 - Mild nonobstructive coronary artery disease Chest pressure Pure hypertriglyceridemia Right buttock pain Spleen enlarged Multiple lipomas Obesity Thrombocytopenia Last visit 04/18/[address] Tyler at which time ordered cardiac stress PET, started metoprolol 25 Mg and rosuvastatin 20 Mg, and ordered fasting labs (cardiac CRP and lipid panel). Prior coronaryCTA 03/2023 suggest nonobstructive disease and pursued further eval for questionable angina and to see hemodynamic significance of LAD muscle bridge. Cardiac stress PET 05/22/2023 No ischemia or scar. Left ventricular function is normal. Normal coronary flow reserve. Latest Reference Range & Units 07/04/23 13:40 Chol, Total mg/dL 119 HDL mg/dL 33 Chol/HDL Ratio ratio 3.6 Triglycerides mg/dL 263 LDL Cholesterol mg/dL 33 Lipid Interpretation See Note CRP High Sens mg/L 2.4 CRP Cardiac Risk Moderate Risk Since starting metoprolol and rosuvastatin needs noted bilateral upper leg achiness and fatigue. Feels that he is clumsy on his feet with intermittent tripping. Also notes general and memory fog. Allthese complaints were not present prior to starting new beta-gabriel and statin. He is awaiting numerous surgeries including for torn left rotator cuff which also has ca calcium buildup, 4 hernias, and sinus surgery. Known ITP w/ Plt 37K limiting his current candidacy and he is arranging follow-up with hematology team. Stable varying chest discomforts such as stabbing pain or chest pressure 1-2x daily which at this time he feels is anxiety. 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 Otherwise can occur with exertion. He has not been routinely monitoring his home blood pressure since February. This morning home BP 125/90. Review of Systems Constitutional: Positive for fatigue. Respiratory: Negative for shortness of breath. Cardiovascular: Positive for chest pain. Negative for palpitations and leg swelling. Gastrointestinal: Negative for blood in stool. Neurological: Negative for syncope. All other systems reviewed and are negative. Family History Problem Relation Age of Onset Depression Maternal Uncle High Blood Pressure Father Social History Social History Narrative Not on file Social History Tobacco Use Smoking status: Never Smokeless tobacco: Never Substance Use Topics Alcohol use: Not Currently Comment: once a month No outpatient medications have been marked as taking for the 07/04/23 encounter (Appointment) with Anthony Caceres PA. Objective: BP 139/85 Pulse 76 Ht 177.8 cm (5' 10) Wt 103.3 kg (227 lb 12.8 oz) SpO2 100% BMI 32.69 kg/m?? Physical Exam Constitutional: General: He is not in acute distress. Appearance: He is well-developed. HENT: Head: Normocephalic and atraumatic. Nose: Nose normal. Eyes: General: Right eye: No discharge. Left eye: No discharge. Conjunctiva/sclera: Conjunctivae normal. Neck: Vascular: No JVD. Cardiovascular: Rate and Rhythm: Normal rate and regular rhythm. Heart sounds: Normal heart sounds. No murmur heard. No friction rub. No gallop. Pulmonary: Effort: Pulmonary effort is normal. Breath sounds: Normal breath sounds. No wheezing or rales. Abdominal: General: Bowel sounds are normal. There is no distension. Palpations: Abdomen is soft. Tenderness: There is no abdominal tenderness. There is no guarding. Musculoskeletal: Cervical back: Neck supple. Skin: General: Skin is warm and dry. Neurological: Mental Status: He is alert and oriented to person, place, and time. Psychiatric: Behavior: Behavior normal. Recent Results (from the past 72 hour(s)) Hemogram Result Value Ref Range WBC 5.1 4.0 - 9.5 x10(3)/mcL RBC 5.41 4.58 - 5.54 x10(6)/mcL Hemoglobin 15.7 13.7 - 16.5 g/dL Hematocrit 43.4 40.5 - 48.5 % MCV 80.2 (L) 82.9 - 93.1 fL MCH 29.0 27.5 - 32.1 pg MCHC 36.2 (H) 32.0 - 35.7 g/dL Platelets 37 (L) 145 - 357 x10(3)/mcL RDWSD 38.7 36.0 - 45.0 fL RDWCV 13.4 11.4 - 13.8 % MPV Not Measured 7.6 - 12.9 fL nRBC % Auto 0.0 % nRBC Abs Auto 0.000 0.000 - 0.000 x10(3)/mcL Differential, Automated Result Value Ref Range Neutrophils % 51.0 % Neutr Abs (ANC) 2.59 1.70 - 6.10 x10(3)/mcL Lymphocytes % 38.7 % Lymphocytes Abs 2.0 0.9 - 3.2 x10(3)/mcL Monocytes % 7.7 % Monocyte Abs 0.4 0.3 - 0.9 x10(3)/mcL Eosinophils % 1.8 % Eosinophils Abs 0.1 0.0 - 0.4 x10(3)/mcL Basophils % 0.4 % Basophils Abs 0.0 0.0 - 0.1 x10(3)/mcL Immature Gran % 0.40 % Cheli Gran Abs 0.02 0.00 - 0.04 x10(3)/mcL Latest Reference Range & Units 03/30/23 07:59 Chol, Total mg/dL 165 HDL mg/dL 33 Chol/HDL Ratio ratio 5.0 Triglycerides mg/dL 211 LDL Cholesterol mg/dL 90 Lipid Interpretation See Note Lipoprotein(a) <75 nmol/L <7 CRP High Sens mg/L 3.5 CRP Cardiac Risk High Risk Cardiac stress PET 05/22/2023 No ischemia or scar. Left ventricular function is normal. Normal coronary flow reserve. 0 Result Notes Details Narrative & Impression CTA Coronary artery 03/30/2023 CLINICAL HISTORY: Abnormal ECG on stress test COMPARISON: No prior CT available for comparison TECHNIQUE: 3 mm thick axial contiguous sections through the heart were obtained via ECG-gated axial mode acquisition without intravenous contrast. After time bolus, 0.625 mm thick axial contiguous sections were obtained through the heart via ECG-gated helical acquisition during intravenous administration of 108 cc Omnipaque 350. Post-processing was performed on an independent computer workstation including curved multiplanar reformats, coronary calcium scoring, and 3D reconstructions. FINDINGS: Coronary calcium score: Left main: Agatston [...] moderate: 101-400 severe: >400 Reference: Briseida RL, Mchugh H, Rebecca R, et al. ??Distribution of [...] - Mild nonobstructive coronary artery disease Assessment and Plan: #ASCVD, nonobstructive. LAD myocardial bridge #Hypertension #Mixed dyslipidemia #Preop evaluation Prasanna Shipman is a 52 y.o. male seen today for above conditions. Reassuring cardiac stress PET which was negative for ischemia or scar, normal coronary flow reserve, and preserved LV systolic function. His chest discomforts do not appear to be cardiac driven. He has had intolerance to addition of low-dose metoprolol and moderate to high-dose rosuvastatin with complaints of leg achiness/fatigue, generalized fatigue, and memory fog. -Discontinue metoprolol succinate 25 Mg daily. I suspect this is likely contributing to memory fog and generalized fatigue. Unclear indication at this point given preserved LV systolic function and no active ischemic heart disease. He does recall remote palpitations we will continue to monitor. -Reduce rosuvastatin to half tablet of 20 Mg (10 Mg) daily. High-dose rosuvastatin may also be contributing to above complaints. His LDL is 33 and CRP down trended. -Acceptable CV risk for potential upcoming surgeries (rotator cuff procedure, hernias to be repaired, sinus surgery). He requires no further cardiac testing. Current delay in scheduling on the basis of ITP with platelets 37,000. He is not on antiplatelet therapy. -Reviewed the importance of heart healthy diet restricting carbohydrates and routine activity. 6-month follow-up with Dr. Tyler. Total time spent on this visit today: 45 minutes. Anthony Caceres PA-C 07/04/2023 Patient Instructions Stop metoprolol as likely contributing to fatigue, memory fog etc. Reassuring that stress test looked good. Reduce rosuvastatin to 1/2 tab of 20mg daily. Potential contributer to leg fatigue/achiness. If you have concerns at home, please call [phone] during normal business hours OR [phone] after hours and ask to speak to regulatory affairs portfolio leader youth development professional. Office follow-up in [address] Tyler. documented in this encounter Plan of Treatment Upcoming Encounters Date Type Department Care Team (Late st Contact Info) Description 01/28/2025 3:30 PM EDT Office [place] [address] Rzaa Glasgow MD [facility] [place] [address] documented as of this encounter Visit Diagnoses Diagnosis Preop cardiovascular exam Pre-operative cardiovascular examination Mild coronary artery disease documented in this encounter Care Teams Alarm Installer Relationship Specialty Start Date End Date Marian Pierre MD [address] [place] [id number] PCP - General Family Medicine 08/15/22 documented as of this encounter
--- OUTSIDE RECORDS SUMMARY | 2024-10-27 11:24 | XMS_ITS | Encounter Summary ---
[place] [address] Care Team Providers Care Public Relations Supervisor Name Role Phone Marian Pierre MD Primary Care Provider Reason for Referral * Diagnostic Test (Routine) - Closed Specialty Diagnoses / Procedures Referred By Contac t Referred To Contact Radiology Diagnoses Mild coronary artery disease Procedures NM PET CT Cardiac Pharmacologic Stress and Rest Kurt Tyler MD [facility] [place] [address] [place] [address] Referral ID Status Reason Start Date Expiration Date V isits Requested Visits Authorized [id number] Closed Specialty Service Requested 04/18/2023 10/15/2024 1 1 * Diagnostic Test (Routine) - Closed Specialty Diagnoses / Procedures Referred By Contac t Referred To Contact Radiology Diagnoses Mild coronary artery disease Procedures NM PET CT Cardiac Pharmacologic Stress CT Component Kurt Tyler MD [facility] [place] [address] [place] [address] Referral ID Status Reason Start Date Expiration Date V isits Requested Visits Authorized [id number] Closed Specialty Service Requested 04/18/2023 10/15/2024 1 1 Reason for Visit * Diagnostic Test (Routine) - Closed Specialty Diagnoses / Procedures Referred By Contshady t Referred To Contact Radiology Diagnoses Mild coronary artery disease Procedures NM PET CT Cardiac Pharmacologic Stress and Rest Kurt Tyler MD [facility] [place] [address] [facility] [place] [address] Referral ID Status Reason Start Date Expiration Date V isits Requested Visits Authorized [id number] Closed Specialty Service Requested 04/18/2023 10/15/2024 1 1 Encounter Details Date Type Department Care Team (Latest Contact Info) Description 05/22/2023 7:41 AM EDT Hospital Encounter [place] [address] Kurt Tyler MD [facility] [place] [address] Mild coronary artery disease Discharge Disposition: Home Social History Tobacco Use [...] 3:30 PM EDT Office [place] [address] Raza Glasgow MD [facility] [place] [address] documented as of this encounter Procedures Procedure Name Priority Date/Time Associated Diagnosis Comments NM PET CT CARDIAC PHARMACOLOGIC STRESS CT COMPONENT Routine 05/22/2023 9:21 AM EDT Mild coronary artery disease NM PET CT CARDIAC PHARMACOLOGIC STRESS Routine 05/22/2023 9:21 AM EDT Mild coronary artery disease documented in this encounter Results * NM PET CT Cardiac Pharmacologic Stress and Rest (05/22/2023 9:21 AM EDT) Anatomical Region Laterality Modality Positron Emissio n Tomography (PET) Impressions 05/22/2023 11:27 AM EDT No ischemia or scar. Left ventricular function is normal. Normal coronary flow reserve. Thank you for letting us participate in the care of this patient. ??If you are a health care provider and have any questions regarding this report, please contact the number below. ??For patients who have questions please contact the health geriatric care manager that requested your imaging first. ? Narrative 05/22/2023 11:27 AM EDT EXAMINATION: NM PET CT CARDIAC PHARMACOLOGIC STRESS AND REST, NM PET CT CARDIAC PHARMACOLOGIC STRESS CT COMPONENT CLINICAL HISTORY: Coronary CTA shows LAD muscle bridge and non-obstructive CAD otherwise, he has angina, TECHNIQUE: During rest, 30 mCi of Rubidium-82 was administered intravenously. PET images of the heart were obtained with reconstruction in the short, vertical long and horizontal long axis. The patient then received regadenoson intravenously at a dose of 0.4 mg. Immediately following, 30 mCi of Rubidium-82 was administered intravenously. Images of the heart were then again obtained with PET reconstruction. A low-dose CT scan was acquired for the purpose of attenuation correction COMPARISON: CT scan June 06, 2022 FINDINGS: No fixed or reversible perfusion defects are present. Functional analysis: Myocardial function: There is normal wall thickening and wall motion. Rest Left ventricular ejection fraction: 66% Stress Left ventricular ejection fraction: 75% Coronary flow reserve LAD territory: 2.9 Coronary flow reserve Circumflex territory: 2.6 Coronary flow reserve RCA territory: 3.2 Coronary flow reserve total: 2.[address] FINDINGS: Hepatic steatosis. Procedure Note Meño Hardy MD - 05/22/2023 EXAMINATION: NM PET CT CARDIAC PHARMACOLOGIC STRESS AND REST, NM PET CTCARDIAC PHARMACOLOGIC STRESS CT COMPONENT CLINICAL HISTORY: Coronary CTA shows LAD muscle bridge and non-obstructiveCAD otherwise, he has angina, TECHNIQUE: During rest, 30 mCi of Rubidium-82 was administeredintravenously. PET images of the heart were obtained with reconstruction in the short,vertical long and horizontal long axis. The patient then received regadenoson intravenously at a dose of 0.4 mg. Immediately following, 30 mCi of Rubidium-82 was administeredintravenously. Images of the heart were then again obtained with PET reconstruction. A low-dose CT scan was acquired for the purpose of attenuationcorrection COMPARISON: CT scan June 06, 2022 FINDINGS: No fixed or reversible perfusion defects are [...] function is normal. Normal coronary flow reserve. Thank you for letting us participate in the care of this patient. If youare a health care provider and have any questions regarding this report,please contact the number below. For patients who have questions please contactthe health geriatric care manager that requested your imaging first. Kurt Tyler MD IM PET ORDERABLES * NM PET CT Cardiac Pharmacologic Stress CT Component (05/22/2023 9:21 AM EDT) Anatomical Region Laterality Modality Positron Emissio n Tomography (PET) Impressions 05/22/2023 11:27 AM EDT No ischemia or scar. Left ventricular function is normal. Normal coronary flow reserve. Thank you for letting us participate in the care of this patient. ??If you are a health care provider and have any questions regarding this report, please contact the number below. ??For patients who have questions please contact the health geriatric care manager that requested your imaging first. ? Narrative 05/22/2023 11:27 AM EDT EXAMINATION: NM PET CT CARDIAC PHARMACOLOGIC STRESS AND REST, CO PET CT CARDIAC PHARMACOLOGIC STRESS CT COMPONENT CLINICAL HISTORY: Coronary CTA shows LAD muscle bridge and non-obstructive CAD otherwise, he has angina, TECHNIQUE: During rest, 30 mCi of Rubidium-82 was administered intravenously. PET images of the heart were obtained with reconstruction in the short, vertical long and horizontal long axis. The patient then received regadenoson intravenously at a dose of 0.4 mg. Immediately following, 30 mCi of Rubidium-82 was administered intravenously. Images of the heart were then again obtained with PET reconstruction. A low-dose CT scan was acquired for the purpose of attenuation correction COMPARISON: CT scan June 06, 2022 FINDINGS: No fixed or reversible perfusion defects are present. Functional analysis: Myocardial function: There is normal wall thickening and wall motion. Rest Left ventricular ejection fraction: 66% Stress Left ventricular ejection fraction: 75% Coronary flow reserve LAD territory: 2.9 Coronary flow reserve Circumflex territory: 2.6 Coronary flow reserve RCA territory: 3.2 Coronary flow reserve total: 2.[address] FINDINGS: Hepatic steatosis. Procedure Note Meño Hardy MD - 05/22/2023 EXAMINATION: NM PET CT CARDIAC PHARMACOLOGIC STRESS AND REST, CO PET CTCARDIAC PHARMACOLOGIC STRESS CT COMPONENT CLINICAL HISTORY: Coronary CTA shows LAD muscle bridge and non-obstructiveCAD otherwise, he has angina, TECHNIQUE: During rest, 30 mCi of Rubidium-82 was administeredintravenously. PET images of the heart were obtained with reconstruction in the short,vertical long and horizontal long axis. The patient then received regadenoson intravenously at a dose of 0.4 mg. Immediately following, 30 mCi of Rubidium-82 was administeredintravenously. Images of the heart were then again obtained with PET reconstruction. A low-dose CT scan was acquired for the purpose of attenuationcorrection COMPARISON: CT scan June 06, 2022 FINDINGS: No fixed or reversible perfusion defects are [...] function is normal. Normal coronary flow reserve. Thank you for letting us participate in the care of this patient. If youare a health care provider and have any questions regarding this report,please contact the number below. For patients who have questions please contactthe health geriatric care manager that requested your imaging first. Kurt Tyler MD [facility] PET ORDERABLES documented in this encounter Visit Diagnoses Diagnosis Mild coronary artery disease documented in this encounter Administered Medications Inactive Administered Medications - up to 3 most recent administrations Medication Order MAR Action Action Date Dose Rate Site regadenoson (Lexiscan) injection 0.4 mg 0.4 mg, Intravenous, ONCE, 1 dose, On Sun05/22/23 at 0915, Radiology Contrast, Routine Given 05/22/2023 8:57 AM EDT 0.4 mg Right Arm rubidium (Rb-82) (Cardiogen) injection 1-50 mCi 1-50 mCi, Intravenous, 2 TIMES DAILY PRN, Starting on Sun05/22/23 at 0847, Until Sun05/23/23 at 0434, Per Protocol, Radiology Contrast, Routine Given 05/22/2023 8:58 AM EDT 30.2 mCi Right Arm Given 05/22/2023 8:48 AM EDT 30.2 mCi Ri ght Arm documented in this encounter Care Teams Public Relations Supervisor Relationship Specialty Start Date End Date Marian Pierre MD [address] [place] [id number] PCP - General Family Medicine 08/15/22 documented as of this encounter
--- OUTSIDE RECORDS SUMMARY | 2024-10-27 11:24 | XMS_ITS | Encounter Summary ---
Author Organization [facility] [place] [address] Care Team Providers Care Disk Grinder Name Role Phone Marian Pierre MD Primary Care Provider Encounter Details Date Type Department Care Team (Latest Contact Info) Description 08/05/2023 Travel Social History Tobacco Use Types Packs/Day [...] 3:30 PM EDT Office [place] [address] Raza Glasgow MD [facility] [place] [address] documented as of this encounter Visit Diagnoses Not on filedocumented in this encounter Care Teams Disk Grinder Relationship Specialty Start Date End Date Marian Pierre MD [address] [place] [phone] PCP - General Family Medicine 08/15/22 documented as of this encounter
--- OUTSIDE RECORDS SUMMARY | 2024-10-27 11:24 | XMS_ITS | Encounter Summary ---
Author Organization [facility] Address [facility] [place] [address] Care Team Providers Care Souvenir Assembler Name Role Phone Marian Pierre MD Primary Care Provider [phone] Encounter Details Date Type Department Care Team (Late st Contact Info) Description 08/03/2023 Telephone [place] [phone] Lara Mccann Social History Tobacco Use Types [...] 3:30 PM EDT Office [place] [address] Raza Glasgow MD [facility] [place] [address] documented as of this encounter Visit Diagnoses Not on filedocumented in this encounter Care Teams Souvenir Assembler Relationship Specialty Start Date End Date Marian Pierre MD [address] [place] [phone] PCP - General Family Medicine 08/15/22 documented as of this encounter
--- OUTSIDE RECORDS SUMMARY | 2024-10-27 11:24 | XMS_ITS | Encounter Summary ---
Author Organization [facility] [place] [address] Care Team Providers Care Music Education Director Name Role Phone Marian Pierre MD Primary Care Provider Encounter Details Date Type Department Care Team (Latest Contact Info) Description 07/13/2023 Travel Social History Tobacco Use Types Packs/Day [...] 3:30 PM EDT Office Visit [place] [address] Raza Glasgow MD [facility] [place] [address] documented as of this encounter Visit Diagnoses Not on filedocumented in this encounter Care Teams Music Education Director Relationship Specialty Start Date End Date Marian Pierre MD [address] [place] [phone] PCP - General Family Medicine 08/15/22 documented as of this encounter
--- OUTSIDE RECORDS SUMMARY | 2024-10-27 11:24 | XMS_ITS | Encounter Summary ---
Author Organization [facility] [place] [address] Care Team Providers Care Chief Of Service Name Role Phone Marian Pierre MD Primary Care Provider [phone] Reason for Visit * Reason Comments Medication Refill Ventolin Encounter Details Date Type Department Care Team (Late st Contact Info) Description 07/16/2023 [place] [phone] Devendra Ferrer MD [facility] [place] [address] Moderate persistent asthma, uncomplicated Social History Tobacco Use Types Packs/Day Years [...] 3:30 PM EDT Office [place] [phone] Raza Glasgow MD [facility] [place] [address] documented as of this encounter Visit Diagnoses Diagnosis Moderate persistent asthma, uncomplicated Unspecified asthma documented in this encounter Care Teams Chief Of Service Relationship Specialty Start Date End Date Marian Pierre MD [address] [place] [address] [place] [address] PCP - General Family Medicine 08/15/22 documented as of this encounter
--- OUTSIDE RECORDS SUMMARY | 2024-10-27 11:24 | XMS_ITS | Encounter Summary ---
Author Organization [facility] [place] [address] Care Team Providers Care Charge Machine Operator Name Role Phone Marian Pierre MD Primary Care Provider Encounter Details Date Type Department Care Team (Late Contact Info) Description 05/28/2023 Ancillary Procedure Radiology Library [place] [phone] Marian Pierre MD [address] [place] [address] [id number] Social History Tobacco Use Types Packs/Day Years [...] 3:30 PM EDT Office Visit Otolaryngology at [facility] [place] [phone] Raza Glasgow MD [facility] [place] [address] documented as of this encounter Procedures Procedure Name Priority Date/Time Associated Diagnosis Comments FILM LIBRARY STORAGE ONLY MR SHOULDER Routine 05/28/2023 12:00 AM EDT documented in this encounter Results * Film Library- Storage Only MR Shoulder (05/28/2023 12:00 AM EDT) Narrative LEVI ANGELES - 05/30/2023 7:47 PM EDT This exam is auto-finalizing. It's purpose is for storage only. Marian Pierre MD [facility] FILM LIBRARY ORD ERABLES Performing Organization Address City/State/[facility] Co de Phone Number [place], [place] documented in this encounter Visit Diagnoses Not on filedocumented in this encounter Care Teams Charge Machine Operator Relationship Specialty Start Date End Date Marian Pierre MD [address] [place] [address] PCP - General Family Medicine 08/15/22 documented as of this encounter
--- OUTSIDE RECORDS SUMMARY | 2024-10-27 11:24 | XMS_ITS | Encounter Summary ---
[place] [address] Care Team Providers Care Crm Campaign Manager Name Role Phone Marian Pierre MD Primary Care Provider [phone] Encounter Details Date Type Department Care Team (Late st Contact Info) Description 07/10/2023 Telephone [place] [address] Johnna Morton Social History Tobacco Use Types Packs/Day Years [...] encounter Miscellaneous Notes * Telephone Encounter - Johnna Morton - 07/13/2023 4:22 PM EDT Returned call to Prasanna after reviewing with Dr. Bennett. Surgical orders placed and OR schedulers will be in touch within 5 business days. Cancelled 07/16/[address] Guillen as no longer needed. No other questions or concerns. * Telephone Encounter - Johnna Morton - 07/10/2023 10:56 AM EDT Reached out to Prasanna at the request of Dr. Bennett. Dr. Bennett recommended GH injection, SA injection, and needle barbotage. Okay to move forward with these injections per Dr. Guillen, no need to recheck platelet count. Discussed that we use short and long acting local anesthetics to help with pain control. Recommended tylenol and icing for post injection as well. He would like to use the cold sprayas well. Does not need formal physical therapy, just should continue with HEP after injections. Prasanna states he hasn't had good relief with CSI in the past and would like to move forward with surgery. He is willing to try the injections, but ultimately would like surgery. I will route this message to Dr. Bennett for his recommendations. documented in this encounter Plan of Treatment Upcoming Encounters Date Type Department Care Team (Late st Contact Info) Description 01/28/2025 3:30 PM EDT Office [place] [address] Raza Glasgow MD [facility] [place] [address] documented as of this encounter Visit Diagnoses Not on filedocumented in this encounter Care Teams Crm Campaign Manager Relationship Specialty Start Date End Date Marian Pierre MD [address] [place] [phone] PCP - General Family Medicine 08/15/22 documented as of this encounter
--- OUTSIDE RECORDS SUMMARY | 2024-10-27 11:24 | XMS_ITS | Encounter Summary ---
Author Organization [facility] [place] [address] Care Team Providers Care Bottom Finisher Name Role Phone Marian Pierre MD Primary Care Provider [phone] Encounter Details Date Type Department Care Team (Late st Contact Info) Description 08/13/2023 Telephone Hematology [place] [phone] Kenn Jose MD [facility] DR HEMATOLOGY/[place] [address] Social History Tobacco Use Types Packs/Day Years [...] encounter Miscellaneous Notes * Telephone Encounter - Kenn Jose MD - 08/13/2023 10:08 PM EDT I was contacted by the Orthopedic team in regards to this patient Consult question: IVIG for platelet count of 29 in the setting of chronic ITP and recent orthopedicsurgery? Assessment: 53 yo M with hx of chronic ITP and alloimmune thrombocytopenia here now s/p planned arthroscopic biceps tendon debridement. His platelets were 33 prior to surgery, he received 1 unit of plts and then underwent surgery. Plts on the post op check were 29. No evidence of bleeding/s urgical complications per the primary team. He has a long standing hx of thrombocytopenia with counts of 40-50K dating back to 2014. Per chart review, has had two spine surgeries in 2012 and 2014 that were uncomplicated. Did not have a cbc check prior to these surgeries. He also had a total r hip replacement in 2019 without complications. Given the chronicity of his ITP, and lack of post-surgical complications, I do not think the benefit of steroids or IVIG outweigh the risks at this time. Suspect the modest drop in his platelets is from a combination of surgery/trauma, minor blood loss and possible dilution. He did receive platelets prior to his surgery, however, I would not have expected a substantial increase in his counts due to his chronic ITP/alloimmunization. Recommendations: #Chronic ITP (Diagnosed 2014) Recheck platelets with morning labs, if <20 suggest giving Dexamethasone 40mg po daily x 4 days if ok from a surgical standpoint. If concerned for post-op bleed, would recommend IVIG at 1gm/kg x 2days. Kenn Jose MD PGY 4 Hem/Onc Fellow [facility] Pager: [phone] HPI: 53 yo M with hx of chronic ITP/ alloimmune thrombocytopenia here now s/p planned arthroscopic biceps tendon debridement. His platelets were 33 prior to surgery, he received 1 unit of plts andthen underwent surgery. Plts on the post op check were 29. No evidence of bleeding/surgical complications per the primary team. ITP hx: counts dating back to 2014 ranging from 40s - 80s. Extensive workup in 2014 did not reveal an underlying cause for his ITP. Multiple surgeries to include spinal surgeries without bleeding complications. Previously evaluated by Korey prior to hernia repair surgery - no platelets or steroids given at that time. Presented today for elective arthroscopic biceps tendon debridement. Had approximately 25cc of blood loss. Post op course has been uncomplicated. No concerns for bleed and pain well controlled. I have been asked by the orthopedic team to weigh in in regards to management of his plt counts. Recent labs: Recent Labs 08/13/23 1819 08/13/23 1205 WBC 4.8 4.9 NEUTROABS 3.24 2.43 HGB 15.0 15.7 HCT 43.4 44.4 PLATELET 29* 33* MCV 81.7* 81.9* Kenn Jose MD PGY 4 Hem/Onc Fellow [facility] Pager: [phone] documented in this encounter Plan of Treatment Upcoming Encounters Date Type Department Care Team (Late st Contact Info) Description 01/28/2025 3:30 PM EDT Office [place] [address] Raza Glasgow MD [facility] [place] [address] documented as of this encounter Visit Diagnoses Not on filedocumented in this encounter Care Teams Bottom Finisher Relationship Specialty Start Date End Date Marian Pierre MD [address] [place] [phone] PCP - General Family Medicine 08/15/22 documented as of this encounter
--- OUTSIDE RECORDS SUMMARY | 2024-10-27 11:24 | XMS_ITS | Encounter Summary ---
Author Organization [facility] Address [facility] [place] [address] Care Team Providers Care Tattooer Name Role Phone Marian Pierre MD Primary Care Provider [phone] Encounter Details Date Type Department Care Team (Latest Contact Info) Description 08/06/2023 12:07 PM EDT - 08/06/2023 11:59 PM EDT Hospital Encounter XRay at [address] [place] [address] Devendra Bennett MD [facility] [place] [address] Superior glenoid labrum lesion of left shoulder, [...] for 7 days. 14 tablet 10/16/2023 10/23/2023 senna-docusate (Pericolace) 8.6-50 mg Tablet Take 2 [...] nightly. 10/04/2023 documented as of this encounter Plan of Treatment Upcoming Encounters Date Type Department Care Team (Late st Contact Info) Description 01/28/2025 3:30 PM EDT Office [place] [address] Raza Glasgow MD [facility] [place] [address] documented as of this encounter Procedures Procedure Name Priority Date/Time Associated Diagnosis Comments XR SHOULDER LEFT Routine 08/06/2023 12:2 1 PM EDT Superior glenoid labrum lesion of left shoulder, initial encounter documented in this encounter Results * XR Shoulder Left [...] who have questions please contact the health special needs caregiver that requested your imaging first. ? Narrative 08/06/2023 5:45 PM EDT EXAMINATION: XR [...] patients who have questions please contactthe health special needs caregiver that requested your imaging first. Devendra Bennett MD IMG DX ORDERABLES documented in this encounter Visit Diagnoses Diagnosis Superior glenoid labrum lesion of left shoulder, initial encounter documented in this encounter Care Teams Tattooer Relationship Specialty Start Date End Date Marian Pierre MD [address] [place] [phone] PCP - General Family Medicine 08/15/22 documented as of this encounter
--- OUTSIDE RECORDS SUMMARY | 2024-10-27 11:24 | XMS_ITS | Encounter Summary ---
[facility] [place] [address] Care Team Providers Care Pony Rougher Name Role Phone Marian Pierre MD Primary Care Provider Encounter Details Date Type Department Care Team (Latest Contact Info) Description 08/06/2023 Travel Social History Tobacco Use Types Packs/Day [...] 3:30 PM EDT Office [place] [address] [facility] [place] [address] documented as of this encounter Visit Diagnoses Not on filedocumented in this encounter Care Teams Pony Rougher Relationship Specialty Start Date End Date Marian Pierre MD [address] [place] [phone] PCP - General Family Medicine 08/15/22 documented as of this encounter
--- OUTSIDE RECORDS SUMMARY | 2024-10-27 11:24 | XMS_ITS | Encounter Summary ---
Author Organization [facility] [place] [address] Care Team Providers Care Chemical Manager Name Role Phone Marian Pierre MD Primary Care Provider [phone] Reason for Visit * Reason Onset Date Comments Disability Paperwork 08/06/2023 Encounter Details Date Type Department Care Team (Late st Contact Info) Description 08/06/2023 Telephone [place] [address] Devendra Bennett MD [facility] [place] [address] Disability Paperwork Social History Tobacco Use Types Packs/Day Years [...] encounter Miscellaneous Notes * Telephone Encounter - Myrna Johnson - 08/15/2023 9:00 AM EDT Completed by: Myrna To provider for review/signature: Signed Faxed/Mailed/[facility]/Pick-up Date: Faxed and mailed to patient * Telephone Encounter - Myrna Johnson - 08/06/2023 1:28 PM EDT Date Received: 08/06 Insurance/Disability Company Name: [employer] documented in this encounter Plan of Treatment Upcoming Encounters Date Type Department Care Team (Late st Contact Info) Description 01/28/2025 3:30 PM EDT Office Visit [place] [address] Raza Glasgow MD [facility] [place] [address] documented as of this encounter Visit Diagnoses Not on filedocumented in this encounter Care Teams Chemical Manager Relationship Specialty Start Date End Date Marian Pierre MD [address] [place] [phone] PCP - General Family Medicine 08/15/22 documented as of this encounter
--- OUTSIDE RECORDS SUMMARY | 2024-10-27 11:24 | XMS_ITS | Encounter Summary ---
[place] [address] Care Team Providers Care Veneer Marker Name Role Phone Marian Pierre MD Primary Care Provider Reason for Referral * Consultation (Routine) - Closed Specialty Diagnoses / Procedures Referred By Contac t Referred To Contact Orthopaedics Diagnoses Injury, shoulder and upper arm, left, initial encounter Marian Pierre MD [facility] [place] [address] [facility] [address] [place] [phone] Referral ID Status Reason Start Date Expiration Date V isits Requested Visits Authorized [id number] Closed Consult, Test & Treat PCP Updated and/or Approved 06/05/2023 06/04/2024 6 6 Encounter Details Date Type Department Care Team (Late st Contact Info) Description 06/05/2023 Transcribe Orders eDH Incoming Referrals [phone] Marian Pierre MD [facility] [place] [id number] Injury, shoulder and upper arm, left, initial encounter Social History Tobacco Use Types [...] 3:30 PM EDT Office Visit [place] [address] Raza Glasgow MD [facility] [address] Scheduled Referrals Name Type Priority Associated Diagnoses Order Schedule Referral to Orthopaedics Outpatient Referral Routine Injury, shoulder and upper arm, left, initial encounter Ordered: 06/05/2023 documented as of this encounter Visit Diagnoses Diagnosis Injury, shoulder and upper arm, left, initial encounter documented in this encounter Care Teams Veneer Marker Relationship Specialty Start Date End Date Marian Pierre MD [address] [place] [id number] PCP - General Family Medicine 08/15/22 documented as of this encounter
--- OUTSIDE RECORDS SUMMARY | 2024-10-27 11:24 | XMS_ITS | Encounter Summary ---
Author Organization [facility] [place] [address] Care Team Providers Care Sterile Supply Technician Name Role Phone Marian Pierre MD Primary Care Provider Encounter Details Date Type Department Care Team (Latest Contact Info) Description 05/03/2023 Travel Social History Tobacco Use Types Packs/Day [...] 3:30 PM EDT Office Visit [place] [address] Raza Glasgow MD [facility] [address] documented as of this encounter Visit Diagnoses Not on filedocumented in this encounter Care Teams Sterile Supply Technician Relationship Specialty Start Date End Date Marian Pierre MD [address] [place] [address] PCP - General Family Medicine 08/15/22 documented as of this encounter
--- OUTSIDE RECORDS SUMMARY | 2024-10-27 11:24 | XMS_ITS | Encounter Summary ---
[facility] Organization [facility] [place] [address] Care Team Providers Care Personal Loan Specialist Name Role Phone Marian Pierre MD Primary Care Provider [phone] Reason for Visit * Auth/Cert (Routine) Specialty Diagnoses / Procedures Referred By Den t Referred To Contact Diagnoses Left shoudler labral tear, calcific tendonitis Procedures PRO REPAIR OF BICEPS TENDON AT ELBOW PRO SHLDR ARTHROSCOP, EXTEN DEBRIDE TENODESIS, BICEPS TENDON (DISTAL) (WRVU 8.08) ARTHROSCOPY SHOULDER DEBRIDEMENT EXTENSIVE (WRVU 7.98) MODIFIER BEACH CHAIR Devendra Hussein MD [facility] [place] [address] [facility] Referral ID Status Reason Start Date Expiration Date Visits Re quested Visits Authorized [id number] 1 1 Encounter Details Date Type Department Care Team (Late st Contact Info) Description 08/13/2023 3:15 PM EDT - 08/13/2023 6:00 PM EDT [place] [id number] Devendra Bennett MD [facility] [place] [address] TENODESIS,BICEPS TENDON (PROXIMAL) (WRVU 10.17) Social History Tobacco Use Types Packs/Day Years [...] Sign Reading Time Taken Comments Blood Pressure 126/78 08/13/2023 6:00 PM EDT Pulse 80 08/13/2023 6:00 PM EDT Temperature 36.8 ??C (98.2 ??F) 08/13/2023 5:54 PM ED T Respiratory Rate 24 08/13/2023 6:00 PM EDT Oxygen Saturation 99% 08/13/2023 6:00 PM EDT Inhaled Oxygen Concentration - - Weight 101.1 kg (222 lb 14.4 oz) 08/13/2023 1:08 PM EDT Height 175.3 cm (5' 9) 08/13/2023 1:08 PM EDT Body Mass Index 32.92 08/13/2023 1:08 PM EDT documented in this encounter Discharge Summaries * Daphne Kearney, SWATHI - 08/14/2023 10:01 AM EDT Images from the original note were not included. Discharge Summary Patient Name: Prasanna Shipman Patient Age: 53 y.o. Language: Puerto Rican Race: White Ethnicity: Not nor Admit date: 08/13/2023 Discharge date and time: 08/14/2023 Attending Physician: Devendra Bennett MD Discharge Physician: Devendra Bennett MD Follow-up Recommendations for Providers: See discharge instructions for additional details. Future Appointments Date Time Provider Department Center 08/30/2023 2:00 PM Mayo Ro MD [facility] PULM [facility] 08/30/2023 4:00 PM Hattie Flor PA [facility] ORTH 3A [facility] 10/22/2023 8:00 AM Raza Glasgow MD [facility] PRESTON [facility] Inpatient Provider Contact Information: Devendra Bennett MD Orthopedics: [phone] After hours and weekends, call [facility] Incoming Inspector, , and have the Orthopedic resident paged. [...] ARTHROSCOPY SHOULDER DEBRIDEMENT EXTENSIVE (WRVU 7.98) [facility] History of Presentation (as written in [...] who have questions please contact the health intensive care unit registered nurse that requested your imaging first. Pending Studies and Lab Data at Discharge: [...] is a short acting narcotic pain medication. Rhcw-rro-ncsdhhf Tylenol (acetaminophen) should be taken in addition [...] important in helping to prevent this. An zorz-blx-yqkrdyk stool softener can also help prevent or [...] and immobilization. You should wear the sling part time flexible clerk except to perform elbow and wrist exercises, [...] Center 08/30/2023 2:00 PM Mayo Ro MD [facility] PULM [facility] 08/30/2023 4:00 PM Hattie Flor PA [facility] ORTH 3A [facility] 10/22/2023 8:00 AM Raza Glasgow MD [facility] PRESTON [facility] If you have questions or concerns please contact our [facility] office Sunday through Sunday, 8 AM - 5 PM, at . If it is after 5 PM or on the weekend, please call and ask to speak with the Orthopedic resident on-call. General Instructions None Future Appointments and Orders Future Appointments and Orders Future Appointments Provider Department Dept Phone 08/30/2023 2:00 PM Mayo Ro MD Pulmonology at [facility] Arrive at: [employer] Machine Setter Area 5C [phone] 08/30/2023 4:00 PM Hattie Flor PA Orthopaedics at [facility] Arrive at: [employer] Setter Area 3A [phone] 10/22/2023 8:00 AM Raza Glasgow MD Otolaryngology at [facility] Arrive at: [employer] Machine Setter Area 4F [phone] Please dispose of unused excess opioids before your appointment or bring them with you to the appointment and we will help you dispose of them correctly. Future Orders Complete By Expires Type and Screen Future Surgery, [facility] SAME DAY PROGRAM ONLY) [[id number] Custom] 08/09/2023 02/08/2024 Process Instructions: This test is intended ONLY for patients with upcoming surgery for testing prior to the day of surgery obtained through the same day program (4V or SDP). For ALL OTHER PATIENTS, order a Type and Screen (HUC550) This order includes the physician order for an ABO Recheck if requested by the Blood Bank. Scheduling Instructions: Comments: Questions: Date of surgery: Primary Care Provider: Marian Pierre MD [phone] Discharge References/Attachments None documented in this encounter [...] is a short acting narcotic pain medication. Pfpc-dwn-panavdu Tylenol (acetaminophen) should be taken in addition [...] important in helping to prevent this. An rdmx-tac-mgvyrni stool softener can also help prevent or [...] and immobilization. You should wear the sling part time flexible clerk except to perform elbow and wrist exercises, [...] Center 08/30/2023 2:00 PM Mayo Ro MD [facility] PULM [facility] 08/30/2023 4:00 PM Hattie Flor PA [facility] ORTH 3A [facility] 10/22/2023 8:00 AM Raza Glasgow MD [facility] PRESTON [facility] If you have questions or concerns please contact our [facility] office Sunday through Sunday, 8 AM - [...] Rowe RN - 08/14/2023 10:45 AM EDT [facility] Short Stay Unit Discharge Note All relevant [...] Center 08/30/2023 2:00 PM Mayo Ro MD [facility] PULM [facility] 08/30/2023 4:00 PM Hattie Flor PA [facility] ORTH 3A [facility] 10/22/2023 8:00 AM Raza Glasgow MD [facility] PRESTON [facility] * Neal Nevarez IV, DO - 08/13/2023 [...] Center 08/30/2023 2:00 PM Mayo Ro MD [facility] PULM [facility] 08/30/2023 4:00 PM Hattie Flor PA [facility] ORTH 3A [facility] 10/22/2023 8:00 AM Raza Glasgow MD [facility] PRESTON [facility] * Karen Egan RN - 08/13/2023 7:04 [...] 09/10/2018 CT Guided Injection SI Joint 09/10/2018 [facility] RAD CAT SCAN CT GUIDED NERVE BLOCK LUMBAR SINGLE LEVEL 08/05/2019 CT Guided Nerve Block Lumbar Single Level 08/05/2019 [facility] RAD CAT SCAN PRO UNLISTED PROCEDURE, MUSCULOSKELETAL [...] Operative Note Patient Name: Prasanna Shipman : [id number] MR#: [id number] Case Date: 08/13/2023 Surgeon: Surgeon(s) and Role: * Devendra Bennett MD - Primary * Mary Lieberman MD - Resident - Assisting Preoperative diagnosis: Left shoulder SLAP lesion, calcific tendinopathy Postoperative diagnosis: same as above Procedure(s) (LRB): TENODESIS, BICEPS TENDON (DISTAL) (WRVU 8.08) (Left) ARTHROSCOPY SHOULDER DEBRIDEMENT EXTENSIVE (WRVU 7.98) (Left) [facility] (N/A) Anesthesia: General Findings: calcific deposits in [...] Bennett MD - 08/13/2023 4:29 PM EDT [facility] Operative Note Patient Name: Prasanna Shipman : [id number] MR#: [id number] Case Date: 08/13/2023 Surgeon: Surgeon(s) and Role: [...] 3:30 PM EDT Office [place] [address] Raza Glasgow MD [facility] [place] [address] documented as of this encounter Procedures Procedure [...] 08/13/2023 6:19 PM EDT Partial Removal, Clavicle ([id number]) 08/13/2023 3:57 PM EDT Left shoudler labral tear, calcific tendonitis [facility] 08/13/2023 3:57 PM EDT Left shoudler labral tear, calcific tendonitis Shldr Arthroscop, Exten Debride ([id number]) 08/13/2023 3:57 PM EDT Left shoudler labral tear, calcific tendonitis Repair Biceps Long Tendon ([id number]) 08/13/2023 3:57 PM EDT Left shoudler labral [...] 6:30 AM EDT) Neutrophil % 86.4 % [facility] Neutrophil Absolute 8.94(H) 1.70 - 6.10 x10(3)/mc L [facility] Lymph % 8.7 % [facility] Lymphocytes Abs 0.9 0.9 - 3.2 x10(3)/mc L [facility] Monocyte % 4.2 % [facility] ITAL LABORATORY Monocyte Abs 0.4 0.3 - 0.9 x10(3)/mc L [facility] Eos % 0.0 % [facility] Eosinophils Abs 0.0 0.0 - 0.4 x10(3)/mc L [facility] Basophil % 0.1 % [facility] ITAL LABOR[facility] Baso Absolute 0.0 0.0 - 0.1 x10(3)/mc L [facility] Immature Gran % 0.60 % [facility] Comment: Immature granulocytes(IG's)percentage and absolute count will include metamyelocytes, myelocytes, and promyelocytes. Blood smears from CBCs yielding IG's will be scanned manually for concordance. If this scan disagrees with the automated IG or if promyelocytes are noted, a manual differential will be performed. Immature Gran Absolute 0.06(H) 0.00 - 0.04 x10(3)/[facility] LABORATORY Blood 08/14/2023 6:30 AM EDT 08/14/2023 6:55 AM EDT Narrative Resulting Agency Comment Spec In Lab Mary Lieberman MD HEMATOLOGY ORDER JESUS [facility] [place] [address] * (ABNORMAL) Hemogram (08/14/2023 6:30 AM EDT) White Blood Cell 10.3(H) 4.0 - 9.5 x10(3)/[facility] LABORATORY Red Blood Cell 5.17 4.58 - 5.54 x10(6)/[facility] LABORATORY Hemoglobin 14.7 13.7 - 16.5 g/dL [facility] Hematocrit 42.1 40.5 - 48.5 % [facility] Mean Cell Volume 81.4(L) 82.9 - 93.1 fL [facility] Mean Cell Hemoglobin 28.4 27.5 - 32.1 pg [facility] Mean Cell Hemoglobin Concentration 34.9 32.0 - 35.7 g/dL [facility] Platelet 45(L) 145 - 357 x10(3)/[facility] LABORATORY RDW Standard Deviation 36.9 36.0 - 45.0 fL [facility] RDW coefficient of variation 12.4 11.4 - 13.8 % [facility] Mean Platelet Volume Not Measured 7.6 - 12.9 fL [facility] NRBC% auto 0.0 % [facility] ITAL LABORATORY NRBC Absolute 0.000 0.000 - 0.000 x10(3)/[facility] LABORATORY Blood 08/14/2023 6:30 AM EDT 08/14/2023 6:55 AM EDT Narrative Resulting Agency Comment Spec In Lab Mary Lieberman MD [place] [address] * (ABNORMAL) Differential, Automated (08/14/2023 1:19 AM EDT) Neutrophil % 87.6 % [facility] Neutrophil Absolute 7.27(H) 1.70 - 6.10 x10(3)/mc L [facility] Lymph % 10.2 % [facility] Lymphocytes Abs 0.8(L) 0.9 - 3.2 x10(3)/mc L [facility] Monocyte % 1.8 % [facility] ITAL LABOR[facility]ORY Monocyte Abs 0.2(L) 0.3 - 0.9 x10(3)/mc L [facility] Eos % 0.1 % [facility] Eosinophils Abs 0.0 0.0 - 0.4 x10(3)/mc L [facility] Basophil % 0.1 % [facility] Baso Absolute 0.0 0.0 - 0.1 x10(3)/mc L [facility] Immature Gran % 0.20 % [facility] Comment: Immature granulocytes(IG's)percentage and absolute count will include metamyelocytes, myelocytes, and promyelocytes. Blood smears from CBCs yielding IG's will be scanned manually for concordance. If this scan disagrees with the automated IG or if promyelocytes are noted, a manual differential will be performed. Immature Gran Absolute 0.02 0.00 - 0.04 x10(3)/mc L [facility] Blood 08/14/2023 1:19 AM EDT 08/14/2023 2:35 AM EDT Narrative Resulting Agency Comment Spec In Lab Neal Nevarez IV, HEMATOLOGY ORDERABL ES Performing Organization Address City/[facility]/[place]IP [place] [address] * (ABNORMAL) Hemogram (08/14/2023 1:19 AM EDT) White Blood Cell 8.3 4.0 - 9.5 x10(3)/mc L [facility] Red Blood Cell 5.40 4.58 - 5.54 x10(6)/mc L [facility] Hemoglobin 15.4 13.7 - 16.5 g/dL [facility] Hematocrit 44.0 40.5 - 48.5 % [facility] Mean Cell Volume 81.5(L) 82.9 - 93.1 fL [facility] Mean Cell Hemoglobin 28.5 27.5 - 32.1 pg [facility] Mean Cell Hemoglobin Concentration 35.0 32.0 - 35.7 g/dL [facility] Platelet 38(L) 145 - 357 x10(3)/mc L [facility] RDW Standard Deviation 37.4 36.0 - 45.0 fL [facility] RDW coefficient of variation 12.7 11.4 - 13.8 % [facility] Mean Platelet Volume 14.0(H) 7.6 - 12.9 fL [facility] NRBC% auto 0.0 % [facility] NRBC Absolute 0.000 0.000 - 0.000 x10(3)/mc L [facility] Blood 08/14/2023 1:19 AM EDT 08/14/2023 2:35 AM EDT Narrative Resulting Agency Comment Spec In Lab Neal Nevarez IV, HEMATOLOGY ORDERABL ES [facility] [place] [address] * (ABNORMAL) Basic Metabolic Panel (non-fasting) (08/14/2023 1:19 AM EDT) Glucose Not Perf 65 - 199 [facility] Comment: Add-on request. ??Sample too old to perform test. Diabetes: >=200 mg/dL plus symptoms Blood Urea Nitrogen 19 10 - 20 mg/dL [facility] Creatinine 1.08 0.80 - 1.50 mg/dL [facility] Sodium 138 135 - 145 mmol/L [facility] Potassium 4.2 3.5 - 5.0 mmol/L [facility] Comment: Please note: ??Patients with WBC >100,000 may have falsely elevated Potassium levels. ??For accurate Potassium quantification in these patients send serum separator tube (gold top) for subsequent determinations. ??Contact the Clinical Chemistry Laboratory if there are any questions. Chloride 102 98 - 107 mmol/L [facility] Carbon Dioxide 21(L) 22 - 31 mmol/L [facility] Anion Gap 15 5 - 15 mmol/L [facility] Calcium 9.3 8.5 - 10.5 mg/dL [facility] Est Glomerular Filtration Rate 83 >=60 mL/min/1. 73 m?? [facility] Comment: This patient's estimated GFR was [...] Bennett MD CHEMISTRY ORDERABLES Performing Organization Address City/State/[facility] Co de Phone Number [facility] [place] [address] * (ABNORMAL) Differential, Automated (08/13/2023 6:19 PM EDT) Neutrophil % 67.6 % [facility] Neutrophil Absolute 3.24 1.70 - 6.10 x10(3)/mc L [facility] Lymph % 26.1 % [facility] Lymphocytes Abs 1.2 0.9 - 3.2 x10(3)/mc L [facility] Monocyte % 4.2 % [facility] ITAL LABORATORY Monocyte Abs 0.2(L) 0.3 - 0.9 x10(3)/mc L [facility] Eos % 1.3 % [facility] Eosinophils Abs 0.1 0.0 - 0.4 x10(3)/mc L [facility] Basophil % 0.4 % [facility] ITAL LABOR[facility]ORY Baso Absolute 0.0 0.0 - 0.1 x10(3)/mc L [facility] Immature Gran % 0.40 % [facility] Comment: Immature granulocytes(IG's)percentage and absolute count will include metamyelocytes, myelocytes, and promyelocytes. Blood smears from CBCs yielding IG's will be scanned manually for concordance. If this scan disagrees with the automated IG or if promyelocytes are noted, a manual differential will be performed. Immature Gran Absolute 0.02 0.00 - 0.04 x10(3)/ L [facility] Blood 08/13/2023 6:19 PM EDT 08/13/2023 6:26 PM EDT Narrative Resulting Agency Comment Spec In Lab Neal Nevarez IV, HEMATOLOGY ORDERABL ES [facility] [place] [address] * (ABNORMAL) Hemogram (08/13/2023 6:19 PM EDT) White Blood Cell 4.8 4.0 - 9.5 x10(3)/mc L [facility] Red Blood Cell 5.31 4.58 - 5.54 x10(6)/ L [facility] Hemoglobin 15.0 13.7 - 16.5 g/dL [facility] Hematocrit 43.4 40.5 - 48.5 % [facility] Mean Cell Volume 81.7(L) 82.9 - 93.1 fL [facility] Mean Cell Hemoglobin 28.2 27.5 - 32.1 pg [facility] Mean Cell Hemoglobin Concentration 34.6 32.0 - 35.7 g/dL [facility] Platelet 29(L) 145 - 357 x10(3)/mc L [facility] RDW Standard Deviation 38.2 36.0 - 45.0 fL [facility] RDW coefficient of variation 12.9 11.4 - 13.8 % [facility] Mean Platelet Volume Not Measured 7.6 - 12.9 fL [facility] NRBC% auto 0.0 % [facility] ITAL LABORATORY NRBC Absolute 0.000 0.000 - 0.000 x10(3)/mc L [facility] Blood 08/13/2023 6:19 PM EDT 08/13/2023 6:26 PM EDT Narrative Resulting Agency Comment Spec In Lab Neal Nevarez IV, DO HEMATOLOGY ORDERABL ES Performing Organization Address [facility] Co de Phone Number [facility] [place] [address] * Transfuse 1 unit platelets, apheresis (08/13/2023 3:50 PM EDT) Devendra Bennett MD NURSING TREATMENT OR DERABLES - BLOOD ADMIN * Transfuse 1 unit platelets, apheresis (08/13/2023 3:50 PM EDT) Devendra Bennett MD NURSING TREATMENT OR DERABLES - BLOOD ADMIN * Prepare Platelets, Apheresis (08/13/2023 1:45 PM EDT) Dispensed? Yes [facility] Blood 08/13/2023 1:45 PM EDT 08/13/2023 1:45 PM EDT Narrative Resulting Agency Comment Spec In Lab Devendra Bennett MD BLOOD BANK PRODUCT O RDERABLES Performing Organization Address City/[facility] [place] [address] * Type and Screen Validity (08/13/2023 12:05 PM EDT) T&S only valid at [facility] LABORATORY Comment:This Type and Screen result is only valid at the [facility] Hospital Blood 08/13/2023 12:0 5 PM EDT 08/13/2023 12:08 PM EDT Narrative Resulting Agency Comment Spec In Lab Devendra Bennett MD BLOOD BANK LAB ORDER JESUS Performing Organization Address City/[facility]/ZIP Co de Phone Number [facility] [place] [address] * Scan, Peripheral Blood (08/13/2023 12:05 PM EDT) Pathologist [facility] Plat estimate Decreased [facility] RBC Morphology Abnormal [facility] Microcyte 1-5 /HPF [facility] Ovalocytes 1-5 /HPF [facility] HOSP ITAL LABORATORY [place] Cells 1-5 /HPF [facility] ITAL LABORATORY Blood 08/13/2023 12:0 5 PM EDT 08/13/2023 12:14 PM EDT Narrative Resulting Agency Comment Spec In Lab Devendra Bennett MD HEMATOLOGY ORDERABLE S Performing Organization Address City/[facility]/ZIP Co de Phone Number [facility] [place] [address] * ABORH Recheck Status (08/13/2023 12:05 PM EDT) [facility] ABORH Type Recheck Completed [facility] Blood 08/13/2023 12:0 5 PM EDT 08/13/2023 12:08 PM EDT Narrative Resulting Agency Comment Spec In Lab Devendra Bennett MD BLOOD BANK LAB ORDER JESUS Performing Organization Address City/[facility] [place] [address] * Differential, Automated (08/13/2023 12:05 PM EDT) [facility] Neutrophil % 49.5 % [facility] Neutrophil Absolute 2.43 1.70 - 6.10 x10(3)/[facility] LABORATORY Lymph % 39.3 % [facility] Lymphocytes Abs 1.9 0.9 - 3.2 x10(3)/[facility] LABORATORY Monocyte % 8.6 % [facility] ITAL LABORATORY Monocyte Abs 0.4 0.3 - 0.9 x10(3)/[facility] LABORATORY Eos % 1.6 % [facility] Eosinophils Abs 0.1 0.0 - 0.4 x10(3)/[facility] LABORATORY Basophil % 0.4 % [facility] H[facility]P ITAL LABORATORY Baso Absolute 0.0 0.0 - 0.1 x10(3)/[facility] LABORATORY Immature Gran % 0.60 % [facility] Comment: Immature granulocytes(IG's)percentage and absolute count will include metamyelocytes, myelocytes, and promyelocytes. Blood smears from CBCs yielding IG's will be scanned manually for concordance. If this scan disagrees with the automated IG or if promyelocytes are noted, a manual differential will be performed. Immature Gran Absolute 0.03 0.00 - 0.04 x10(3)/[facility] LABORATORY Blood 08/13/2023 12:0 5 PM EDT 08/13/2023 12:14 PM EDT Narrative Resulting Agency Comment Spec In Lab Devendra Bennett MD HEMATOLOGY ORDERABLE S Performing Organization Address City/State/[facility] Co de Phone Number [facility] [place] [address] * (ABNORMAL) Hemogram (08/13/2023 12:05 PM EDT) White Blood Cell 4.9 4.0 - 9.5 x10(3)/mc L [facility] Red Blood Cell 5.42 4.58 - 5.54 x10(6)/mc L [facility] Hemoglobin 15.7 13.7 - 16.5 g/dL [facility] Hematocrit 44.4 40.5 - 48.5 % [facility] Mean Cell Volume 81.9(L) 82.9 - 93.1 fL [facility] Mean Cell Hemoglobin 29.0 27.5 - 32.1 pg [facility] Mean Cell Hemoglobin Concentration 35.4 32.0 - 35.7 g/dL [facility] Platelet 33(L) 145 - 357 x10(3)/mc L [facility] RDW Standard Deviation 37.9 36.0 - 45.0 fL [facility] RDW coefficient of variation 12.7 11.4 - 13.8 % [facility] Mean Platelet Volume 13.3(H) 7.6 - 12.9 fL [facility] NRBC% auto 0.0 % [facility] ITAL [facility]OR[facility] NRBC Absolute 0.000 0.000 - 0.000 x10(3)/mc L [facility] Blood 08/13/2023 12:0 5 PM EDT 08/13/2023 12:14 PM EDT Narrative Resulting Agency Comment Spec In Lab Devendra Bennett MD HEMATOLOGY ORDERABLE S [facility] [place] [address] * Antibody screen (08/13/2023 12:05 PM EDT) Ab Screen Interp Negative [facility] Expires at [id number] on: 08/16/2023 [facility] Blood 08/13/2023 12:0 5 PM EDT 08/13/2023 12:08 PM EDT Narrative Resulting Agency Comment Spec In Lab Devendra Bennett MD BLOOD BANK LAB ORDER JESUS Performing Organization Address City/[facility]/ZIP Co de Phone Number [facility] [place] [address] * ABO/Rh Typing (08/13/2023 12:05 PM EDT) ABORH Type A Pos [facility] Blood 08/13/2023 12:0 5 PM EDT 08/13/2023 12:08 PM EDT Narrative Resulting Agency Comment Spec In Lab Devendra Bennett MD BLOOD BANK LAB ORDER JESUS Performing Organization Address City/[facility]/ZIP Co de Phone Number [facility] [place] [address] * SCAN DOC: IMPLANTABLE DEVICES (08/13/2023 12:00 AM EDT) Narrative 08/13/2023 12:00 AM EDT Ordered by an unspecified provider. Scanning Provider MEDIA MGR SCAN EXT O RDR/RSLT * SCAN DOC: LAB (08/13/2023 12:00 AM EDT) Narrative 08/13/2023 12:00 AM EDT Ordered by an unspecified provider. Scanning Provider MEDIA MGR SCAN EXT O RDR/RSLT documented in this encounter Visit Diagnoses Not on filedocumented in this encounter Admitting Diagnoses Diagnosis S/P [...] Given 08/14/2023 5:14 AM EDT 500 mcg EPINEPHrine (Adrenalin) (1 mg/mL) injection PRN, Starting on Sun08/13/23 at 1633, Until Sun08/14/23 at 1307, Intra-Operative (Intra-Procedure), Routine Given 08/13/2023 4:33 PM EDT 2 mg 19- Surgical Site fentaNYL (PF) (50 mcg/mL) injection 50 mcg [...] Procedure), Indication for (Active or Suspected): Prophylaxis 161 (New Bag - Provider: Terrell Yuan CRNA) [...] Routine 1532 (Given - Provider: Britney Loomis RN)1538 (Given - Provider: Britney Loomis RN) midazolam (pf) (Versed) (1 mg/mL) injection 1 mg (CANCELED) 1 mg, Intravenous, EVERY 5 MIN PRN, Starting on Sun08/13/23 at 1506, Until Sun08/13/23 at 1548, Other, sedation or prior to injection of local anesthetic, Hold for delirium/agitation. (Maximum dose 5 mg)., Day of Surgery (Day of Procedure), Routine 1531 (Given - Provider: Britney Loomis RN) ondansetron [...] 010 (See Alternative - Provider: Norma Beckett RN)05 (See Alternative - Provider: Norma Beckett RN)0921 [...] RN) 010 (Given - Provider: Norma Beckett RN)05 (See Alternative - Provider: Norma Beckett RN)09 (See Alternative - Provider: Janie Rowe RN) [...] Beckett RN)05 (Given - Provider: Norma Beckett RN)09 (See Alternative - Provider: Janie Rowe RN) [...] Routine documented in this encounter Care Teams Personal Loan Specialist Relationship Specialty Start Date End Date Marian Pierre MD [address] [place] [address] PCP - General Family Medicine 08/15/22 documented as of this encounter
--- OUTSIDE RECORDS SUMMARY | 2024-10-27 11:24 | XMS_ITS | Encounter Summary ---
Author Organization [facility] [place] [address] Care Team Providers Care Cath Lab Name Role Phone Marian Pierre MD Primary Care Provider [phone] Encounter Details Date Type Department Care Team (Latest Contact Info) Description 07/04/2023 1:20 PM EDT Laboratory Appointment Lab [address] [place] [phone] Mild coronary artery disease Social History Tobacco [...] 3:30 PM EDT Office [place] [address] Raza Glasgow MD [facility] [place] [address] documented as of this encounter Procedures Procedure Name Priority Date/Time Associated Diagnosis Comments CRP, CARDIAC RISK (HS CRP) Routine 07/04/2023 1:40 PM EDT Mild coronary artery disease LIPID PANEL (REFLEX DIRECT LDL) Routine 07/04/2023 1:40 PM EDT Mild coronary artery disease documented in this encounter Results * Lipid Panel (Reflex Direct LDL) (07/04/2023 1:40 PM EDT) Cholesterol, Total 119 mg/dL [facility] Comment: Lower Risk: <200 mg/dL Average Risk: 200-239 mg/dL Higher Risk: >gs=751 mg/dL Triglyceride 263 mg/dL [facility] Comment: Average Risk/Lower Risk: <150 mg/dL Borderline High Risk: 150-199 mg/dL High Risk: 200-499 mg/dL Very High Risk: >fh=401 mg/dL HDL Cholesterol 33 mg/dL [facility] Comment: Males: ?? Higher Risk: <40 mg/dL Females: ?? Higher Risk: <50 mg/dL LDL Cholesterol 33 mg/dL [facility] Comment: Lowest Risk: <100 mg/dL Lower Risk: 100-129 mg/dL Borderline High Risk: 130-159 mg/dL High Risk: 160-189 mg/dL Very High Risk: >pl=433 mg/dL Cholesterol/HDL Ratio 3.6 ratio [facility] Lipid Interpretation See Note [facility] Comment: Lipid management should be guided by a patient? s ASCVD risk, goals and preferences. ACC/AHA Guidelines recommend high intensity statin if clinical ASCVD or LDL greater than or equal to 190 mg/dL. http://51intern.com.com/PNH-YQW-Lcjzqbvmq Adults aged 40-75 with LDL 70-189 mg/dL should have their 10 year ASCVD risk estimated with the ACC/AHA ASCVD risk sports marketing internship http://tools.acc.org/SQOEH-Eivm-Syyprlrtg/ Statin should be discussed if risk greater than or equal to 7.5% in non-diabetics. With diabetes, moderate intensity statin is recommended if risk less than 7.5%, high intensity if risk greater than or equal to 7.5%. Annual lipid monitoring on statins is not necessary. Evaluate secondary causes of Triglycerides greater than 500 mg/dL or LDL greater than 190 mg/dL: See table 6 of ACC/AHA Guideline. Lifestyle modification is a critical component of ASCVD risk reduction. Blood 07/04/2023 1:40 PM EDT 07/04/2023 1:44 PM EDT Narrative Resulting Agency Comment Spec In Lab Kurt Tyler MD CHEMISTRY ORDERABLES Performing Organization Address City/[facility]/ZIP Co de Phone Number [facility] [place] [address] * CRP, cardiac risk (HS CRP) (07/04/2023 1:40 PM EDT) C-Reactive Protein High Sensitivity 2.4 mg/L [facility] Comment: For cardiac risk assessment, two values (fasting or nonfasting sample acceptable) taken at least 2 weeks apart, should be averaged to provide a more reliable estimate of marker level. This laboratory will be using the recommendations from the AHA/CDC Scientific Statement for interpretations of future risks of cardiovascular events: ?<1.0 mg/L: low risk ?1.0 to 3.0 mg/L: moderate risk ?>3.0 mg/L: high risk ?>10.0 mg/L: Acute Inflammation Note: CRP values >10 mg/L indicate an acute inflammatory condition or infection. The >10 mg/L value should not be used for cardiac risk assessment and a repeat specimen should be collected at least two weeks after resolution of the acute inflammatory condition. References: 1. Jayne QUINONEZ et. al. ??AHA/CDC Scientific Statement: Markers of Inflammation and Cardiovascular Disease. ??Circulation 2003; 107:499-511 2. Ridker PM. ??Clinical applications of C-reactive protein for cardiovascular disease detection and prevention. ??Circulation 2003; 107:363-369 CRP Cardiac Risk Moderate Risk [facility] Blood 07/04/2023 1:40 PM EDT 07/04/2023 1:44 PM EDT Narrative Resulting Agency Comment Spec In Lab Kurt Tyler MD CHEMISTRY ORDERABLES Performing Organization Address City/[facility]/ZIP Co de Phone Number [facility] [place] [address] documented in this encounter Visit Diagnoses Diagnosis Mild coronary artery disease documented in this encounter Care Teams Cath Lab Relationship Specialty Start Date End Date Marian Pierre MD [address] [place] [address] PCP - General Family Medicine 08/15/22 documented as of this encounter
--- OUTSIDE RECORDS SUMMARY | 2024-10-27 11:24 | XMS_ITS | Encounter Summary ---
Author Organization [facility] [place] [address] Care Team Providers Care Baby Attendant Name Role Phone Marian Pierre MD Primary Care Provider [phone] Encounter Details Date Type Department Care Team (Late st Contact Info) Description 05/24/2023 Orders Only Hematology [place] [phone] Norma Garrido APRN [facility] [address] [place] [address] History of ITP Social History Tobacco Use [...] PM EDT Office [place] [address] Raza Glasgow MD [facility] [place] [address] Scheduled Orders Name Type Priority Associated Diagnoses Orde r Schedule CBC (with Diff) Lab STAT History of ITP Every 4 Weeks for 12 Occurrences starting 05/24/2023 until 11/26/2024, 9 completed documented as of this encounter Results * (ABNORMAL) CBC (with Diff) (10/27/2024 8:04 AM [facility]) White Blood Cell 5.75 4.00 - 9.50 x10(3)/mc L 10/27/2024 8:30 AM [facility] Red Blood Cell 5.64(H) 4.58 - 5.54 x10(6)/mc L 10/27/2024 8:30 AM [facility] Hemoglobin 16.1 13.7 - 16.5 g/dL 10/27/2024 8:30 AM [facility] Hematocrit 46.3 40.5 - 48.5 % 10/27/2024 8:30 AM [facility] Mean Cell Volume 82.1(L) 82.9 - 93.1 fL 10/27/2024 8:30 AM [facility] Mean Cell Hemoglobin 28.5 27.5 - 32.1 pg 10/27/2024 8:30 AM [facility] Mean Cell Hemoglobin Concentration 34.8 32.0 - 35.7 g/dL 10/27/2024 8:30 AM [facility] Platelet 31(L) 145 - 357 x10(3)/mc L 10/27/2024 8:30 AM [facility] Mean Platelet Volume 14.5(H) 7.6 - 12.9 fL 10/27/2024 8:30 AM [facility] RDW Standard Deviation 38.5 36.0 - 45.0 fL 10/27/2024 8:30 AM [facility] RDW coefficient of variation 12.9 11.4 - 13.8 % 10/27/2024 8:30 AM [facility] NRBC% auto 0.0 % 10/27/2024 8:30 AM [facility] NRBC Absolute <0.01 <0.01 x10(3)/mc L 10/27/2024 8:30 AM [facility] Neutrophil % 42.1 % 10/27/2024 8:30 AM [facility] Neutrophil Absolute (ANC) - Automated 2.42 1.70 - 6.10 x10(3)/mc L 10/27/2024 8:30 AM [facility] Lymph % 44.0 % 10/27/2024 8:30 AM [facility] Lymph Absolute 2.53 0.90 - 3.20 x10(3)/mc L 10/27/2024 8:30 AM [facility] Monocyte % 8.9 % 10/27/2024 8:30 AM [facility] Monocyte Absolute 0.51 0.30 - 0.90 x10(3)/mc L 10/27/2024 8:30 AM [facility] Eos % 3.8 % 10/27/2024 8:30 AM [facility] Eos Absolute 0.22 0.00 - 0.40 x10(3)/mc L 10/27/2024 8:30 AM [facility] Basophil % 0.9 % 10/27/2024 8:30 AM [facility] Baso Absolute 0.05 0.00 - 0.10 x10(3)/mc L 10/27/2024 8:30 AM [facility] Immature Gran % 0.3 % 8:30 AM [facility] Immature Gran Absolute <0.04 0.00 - 0.04 x10(3)/mc L 10/27/2024 8:30 AM [facility] Blood VENOUS BLOOD SPECIMEN / Unknown Venipuncture / Unknown 10/27/2024 8:04 AM EST 10/27/2024 8:18 AM EST Norma Garrido HYDROGRAPHY TEACHER HEMATOLOGY ORDERAB LES [facility] [place] [phone] * (ABNORMAL) CBC (with Diff) (09/24/2024 7:24 AM EST) White Blood Cell 5.06 4.00 - 9.50 x10(3)/mc L 09/24/2024 7:54 AM [facility] Red Blood Cell 5.73(H) 4.58 - 5.54 x10(6)/mc L 09/24/2024 7:54 AM [facility] Hemoglobin 16.2 13.7 - 16.5 g/dL 09/24/2024 7:54 AM [facility] Hematocrit 46.3 40.5 - 48.5 % 09/24/2024 7:54 AM [facility] Mean Cell Volume 80.8(L) 82.9 - 93.1 fL 09/24/2024 7:54 AM [facility] Mean Cell Hemoglobin 28.3 27.5 - 32.1 pg 09/24/2024 7:54 AM [facility] Mean Cell Hemoglobin Concentration 35.0 32.0 - 35.7 g/dL 09/24/2024 7:54 AM [facility] Platelet 27(L) 145 - 357 x10(3)/mc L 09/24/2024 7:54 AM [facility] Mean Platelet Volume 09/24/2024 7:54 AM [facility] Comment:Not measured RDW Standard Deviation 37.5 36.0 - 45.0 fL 09/24/2024 7:54 AM [facility] RDW coefficient of variation 13.1 11.4 - 13.8 % 09/24/2024 7:54 AM [facility] NRBC% auto 0.0 % 09/24/2024 7:54 AM [facility] NRBC Absolute <0.01 <0.01 x10(3)/mc L 09/24/2024 7:54 AM [facility] Neutrophil % 43.6 % 09/24/2024 7:54 AM [facility] Neutrophil Absolute (ANC) - Automated 2.21 1.70 - 6.10 x10(3)/mc L 09/24/2024 7:54 AM [facility] Lymph % 44.7 % 09/24/2024 7:54 AM [facility] Lymph Absolute 2.26 0.90 - 3.20 x10(3)/mc L 09/24/2024 7:54 AM [facility] Monocyte % 8.1 % 09/24/2024 7:54 AM [facility] Monocyte Absolute 0.41 0.30 - 0.90 x10(3)/mc L 09/24/2024 7:54 AM [facility] Eos % 2.4 % 09/24/2024 7:54 AM [facility] Eos Absolute 0.12 0.00 - 0.40 x10(3)/mc L 09/24/2024 7:54 AM [facility] Basophil % 0.6 % 09/24/2024 7:54 AM [facility] Baso Absolute <0.04 0.00 - 0.10 x10(3)/mc L 09/24/2024 7:54 AM [facility] Immature Gran % 0.6 % 7:54 AM [facility] Immature Gran Absolute <0.04 0.00 - 0.04 x10(3)/mc L 09/24/2024 7:54 AM [facility] Blood VENOUS BLOOD SPECIMEN / Unknown Venipuncture / Unknown 09/24/2024 7:24 AM EST 09/24/2024 7:24 AM EST Norma Garrido HYDROGRAPHY TEACHER HEMATOLOGY ORDERAB LES [facility] [place] [address] * (ABNORMAL) CBC (with Diff) (07/25/2024 10:38 AM EDT) White Blood Cell 5.02 4.00 - 9.50 x10(3)/mc L 07/25/2024 11:01 AM [facility] Red Blood Cell 5.51 4.58 - 5.54 x10(6)/mc L 07/25/2024 11:01 AM [facility] Hemoglobin 15.7 13.7 - 16.5 g/dL 07/25/2024 11:01 AM [facility] Hematocrit 45.3 40.5 - 48.5 % 07/25/2024 11:01 AM [facility] Mean Cell Volume 82.2(L) 82.9 - 93.1 fL 07/25/2024 11:01 AM [facility] Mean Cell Hemoglobin 28.5 27.5 - 32.1 pg 07/25/2024 11:01 AM [facility] Mean Cell Hemoglobin Concentration 34.7 32.0 - 35.7 g/dL 07/25/2024 11:01 AM [facility] Platelet 32(L) 145 - 357 x10(3)/mc L 07/25/2024 11:01 AM [facility] Mean Platelet Volume 13.5(H) 7.6 - 12.9 fL 07/25/2024 11:01 AM [facility] RDW Standard Deviation 38.2 36.0 - 45.0 fL 07/25/2024 11:01 AM [facility] RDW coefficient of variation 12.9 11.4 - 13.8 % 07/25/2024 11:01 AM [facility] NRBC% auto 0.0 % 07/25/2024 11:01 AM [facility] NRBC Absolute <0.01 <0.01 x10(3)/mc L 07/25/2024 11:01 AM [facility] Neutrophil % 44.6 % 07/25/2024 11:01 AM [facility] Neutrophil Absolute (ANC) - Automated 2.24 1.70 - 6.10 x10(3)/mc L 07/25/2024 11:01 AM EDT [facility] Lymph % 44.4 % 07/25/2024 11:01 AM EDT [facility] Lymph Absolute 2.23 0.90 - 3.20 x10(3)/mc L 07/25/2024 11:01 AM EDT [facility] Monocyte % 8.4 % 07/25/2024 11:01 AM EDT [facility] Monocyte Absolute 0.42 0.30 - 0.90 x10(3)/mc L 07/25/2024 11:01 AM EDT [facility] Eos % 1.6 % 07/25/2024 11:01 AM EDT [facility] Eos Absolute 0.08 0.00 - 0.40 x10(3)/mc L 07/25/2024 11:01 AM EDT [facility] Basophil % 0.6 % 07/25/2024 11:01 AM EDT [facility] Baso Absolute <0.04 0.00 - 0.10 x10(3)/mc L 07/25/2024 11:01 AM EDT [facility] Immature Gran % 0.4 % 11:01 AM EDT [facility] Immature Gran Absolute <0.04 0.00 - 0.04 x10(3)/mc L 07/25/2024 11:01 AM EDT [facility] Blood VENOUS BLOOD SPECIMEN / Unknown Venipuncture / Unknown 07/25/2024 10:38 AM EDT 07/25/2024 10:38 AM EDT Norma Garrido APRN HEMATOLOGY ORDERAB LES [facility] [place] [address] documented in this encounter Visit Diagnoses Diagnosis History of ITP Personal history of diseases of blood and blood-forming organs documented in this encounter Care Teams Baby Attendant Relationship Specialty Start Date End Date Marian Pierre MD [address] [place] [address] PCP - General Family Medicine 08/15/22 documented as of this encounter
--- OUTSIDE RECORDS SUMMARY | 2024-10-27 11:24 | XMS_ITS | Encounter Summary ---
Author Organization [facility] [place] [address] Care Team Providers Care Circle Edger Name Role Phone Marian Pierre MD Primary Care Provider [phone] Encounter Details Date Type Department Care Team (Latest Contact Info) Description 07/04/2023 Travel Social History Tobacco Use Types Packs/Day [...] 3:30 PM EDT Office [place] [address] Raza Glasgow MD [facility] [address] documented as of this encounter Visit Diagnoses Not on filedocumented in this encounter Care Teams Circle Edger Relationship Specialty Start Date End Date Marian Pierre MD [address] [place] [id number] PCP - General Family Medicine 08/15/22 documented as of this encounter
--- OUTSIDE RECORDS SUMMARY | 2024-10-27 11:24 | XMS_ITS | Encounter Summary ---
Author Organization [facility] [place] [address] Care Team Providers Care Track Leader Name Role Phone Marian Pierre MD Primary Care Provider [phone] Encounter Details Date Type Department Care Team (Late st Contact Info) Description 07/11/2023 Orders [place] [phone] Devendra Bennett MD [facility] [place] [address] Superior glenoid labrum lesion of left shoulder, [...] 3:30 PM EDT Office [place] [phone] Raza Glasgow MD [facility] [place] [address] documented as of this encounter Visit Diagnoses Diagnosis Superior glenoid labrum lesion of left shoulder, initial encounter documented in this encounter Care Teams Track Leader Relationship Specialty Start Date End Date Marian Pierre MD [address] [place] [address] [place] [address] PCP - General Family Medicine 08/15/22 documented as of this encounter
--- OUTSIDE RECORDS SUMMARY | 2024-10-27 11:24 | XMS_ITS | Encounter Summary ---
Author Organization [facility] [place] [address] Care Team Providers Care Dsp Engineer Name Role Phone Marian Pierre MD Primary Care Provider Encounter Details Date Type Department Care Team (Late st Contact Info) Description 05/20/2023 Orders Only [place] [phone] Jenna Alejandro APRN [facility] DR HEMATOLOGY [place] [address] History of ITP Social History Tobacco Use [...] 3:30 PM EDT Office [place] [phone] Raza Glasgow MD [facility] [place] [address] documented as of this encounter Visit Diagnoses Diagnosis History of ITP Personal history of diseases of blood and blood-forming organs documented in this encounter Care Teams Dsp Engineer Relationship Specialty Start Date End Date Marian Pierre MD [address] [place] [address] PCP - General Family Medicine 08/15/22 documented as of this encounter
--- OUTSIDE RECORDS SUMMARY | 2024-10-27 11:24 | XMS_ITS | Encounter Summary ---
Author Organization [facility] [place] [address] Care Team Providers Care Soaker Meat Name Role Phone Marian Pierre MD Primary Care Provider Reason for Referral * Diagnostic Test (Routine) - Closed Specialty Diagnoses / Procedures Referred By Contac t Referred To Contact Cardiology Diagnoses Mild coronary artery disease Procedures Nuclear Pharmacologic Stress Cardiology (PET CT Mobile) Kurt Tyler MD [facility] [place] [address] [facility] [place] [address] Referral ID Status Reason Start Date Expiration Date V isits Requested Visits Authorized [id number] Closed Specialty Service Requested 04/18/2023 04/17/2024 1 1 Reason for Visit * Diagnostic Test (Routine) - Closed Specialty Diagnoses / Procedures Referred By Contac t Referred To Contact Cardiology Diagnoses Mild coronary artery disease Procedures Nuclear Pharmacologic Stress Cardiology (PET CT Mobile) Kurt Tyler MD [facility] [place] [address] [facility] [place] [address] Referral ID Status Reason Start Date Expiration Date V isits Requested Visits Authorized [id number] Closed Specialty Service Requested 04/18/2023 04/17/2024 1 1 Encounter Details Date Type Department Care Team (Latest Contact Info) Description 05/22/2023 7:42 AM EDT - 05/22/2023 11:59 PM EDT Hospital Encounter Non-Invasive Cardiology Lab [facility] [place] [address] Kurt Tyler MD [facility] [place] [address] Mild coronary artery disease Discharge Disposition: Home [...] Sign Reading Time Taken Comments Blood Pressure 138/99 05/22/2023 8:18 AM EDT Pulse 79 05/22/2023 8:18 AM EDT Temperature - - Respiratory Rate - - Oxygen Saturation 98% 05/22/2023 8:18 AM EDT Inhaled Oxygen Concentration - - Weight 100.7 kg (222 lb 0.1 oz) 05/22/2023 8:18 AM EDT Height 176.5 cm (5' 9.49) 05/22/2023 8:18 AM ED T Body Mass Index 32.33 05/22/2023 8:18 AM EDT documented in this encounter Medications at Time [...] 3:30 PM EDT Office [place] [phone] Raza Glasgow MD [facility] [place] [address] documented as of this encounter Procedures Procedure Name Priority Date/Time Associated Diagnosis Comments NUCLEAR PHARMACOLOGIC STRESS CARDIOLOGY (PET CT MOBILE) Routine 05/22/2023 9:53 AM EDT Mild coronary artery disease documented in this encounter Results * Nuclear Pharmacologic Stress Cardiology (PET CT Mobile) (05/22/2023 9:53 AM EDT) Anatomical Region Laterality Modality Other Kurt Tyler MD [facility] ORD ERABLES documented in this encounter Visit Diagnoses Diagnosis Mild coronary artery disease documented in this encounter Care Teams Soaker Meat Relationship Specialty Start Date End Date Marian Pierre MD [address] [place] [place] [address] PCP - General Family Medicine 08/15/22 documented as of this encounter
--- OUTSIDE RECORDS SUMMARY | 2024-10-27 11:24 | XMS_ITS | Encounter Summary ---
Author Organization [facility] [place] [address] Care Team Providers Care Tax Examiner Name Role Phone Marian Pierre MD Primary Care Provider Encounter Details Date Type Department Care Team (Latest Contact Info) Description 04/18/2023 Travel Social History Tobacco Use Types Packs/Day [...] 3:30 PM EDT Office [place] [address] Raza Glasgow MD [facility] [place] [address] documented as of this encounter Visit Diagnoses Not on filedocumented in this encounter Care Teams Tax Examiner Relationship Specialty Start Date End Date Marian Pierre MD [address] [place] [address] PCP - General Family Medicine 08/15/22 documented as of this encounter
--- OUTSIDE RECORDS SUMMARY | 2024-10-27 11:25 | XMS_ITS | Encounter Summary ---
Author Organization [facility] Address [facility] [place] [address] Care Team Providers Care Manager Of It Name Role Phone Marian Pierre MD Primary Care Provider [phone] Encounter Details Date Type Department Care Team (Late st Contact Info) Description 12/19/2022 3:15 PM EST Office Visit [place] [address] Taurus Velásquez MD [facility] [place] [address] SOB (shortness of breath) Social History Tobacco Use Types Packs/Day Years [...] Sign Reading Time Taken Comments Blood Pressure 117/78 12/19/2022 3:15 PM EST Pulse 94 12/19/2022 3:15 PM EST Temperature 36.3 ??C (97.4 ??F) 12/19/2022 3:15 PM ES T Respiratory Rate 16 12/19/2022 3:15 PM EST Oxygen Saturation 97% 12/19/2022 3:15 PM EST Inhaled Oxygen Concentration - - Weight 98.5 kg (217 lb 3.2 oz) 12/19/2022 3:15 P M EST Height 176.5 cm (5' 9.5) 12/19/2022 3:15 PM EST Body Mass Index 31.61 12/19/2022 3:15 PM EST documented in this encounter Progress Notes * Taurus Velásquez W - 12/19/2022 3:15 PM EST Images from the original note were not included. OUTPATIENT PULMONOLOGY FOLLOW-UP NOTE SECTION OF PULMONARY AND CRITICAL CARE MEDICINE PRIMARY CARE PHYSICIAN: Marian Pierre MD Chief Complaint: Asthma Background: Prasanna Shipman is a 52 y.o. with PMH of asthma, ITP, COVID-19 x2, hyperlipidemia, and PALAK who presents today for evaluation of shortness of breath and cough since having pneumonia. His PFTs reveal normal spirometry/DLCO. His CT scan reveals no evidence of pulmonary pathology. Overall, I think his symptoms fit with worsening asthma in the setting of post-viral illness. We will increase his Symbicort dose and add prn albuterol. Interval History: He took the symbicort higher dose for about 8 weeks and noticed no improvement in his symptoms. He is taking albuterol before physical activity, but does not feel that it helps. He took the COVID booster in July of 2022. 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 He has been on two courses of prednisone for his ENT symptoms. He noticed no improvementin his breathing with that. He reports coughing up clear phlegm in the morning. He is short of breath with walking up 2 flightso[address] stairs. He feels that he wheezes at night time. He has significant coughing fits with exercise. He has lost 15 pounds intentionally with exercise. Objective: No data found. No data found. Vitals: 12/19/22 1515 BP: 117/78 Pulse: 94 Resp: 16 Temp: 36.3 ??C (97.4 ??F) TempSrc: Temporal SpO2: 97% Weight: 98.5 kg (217 lb 3.2 oz) Height: 176.5 cm (5' 9.5) Physical Exam General: In NAD CV: RRR Lungs: CTA Extremities: No edema, cyanosis, or clubbing. Prior Workup: Labs: No significant eosinophilia on CBC PFTS: 09/01/2022-normal spirometry. No diffusion impairment Imaging: (Images personally reviewed previously) CT chest from July 2022-no lung parenchymal abnormalities Assessment: Prasanna Shipman is a 52 y.o. with PMH of asthma?, ITP, COVID-19 x2, hyperlipidemia, and PALAK who presents today for evaluation of shortness of breath and cough since having a diagnosis of pneumonia approximately 4-6 months ago. His PFTs reveal normal spirometry/DLCO. His CT scan reveals no evidence of pulmonary pathology. He was placed empirically on an increased dose of ICS-LABA and has received multiple rounds of prednisone in the interim by his ENT, none of which have helped his pulmonary symptoms. Even if he were to have exercise- induced asthma, he is experiencing no benefit from bronchodilators preexercise. This brings into question whether he truly has asthma as the cause of his respiratory symptoms. Given that his symptoms primarily occur with exercise and we do not have a clear explanation, I do think it is reasonable to proceed with CPEX testing for further evaluation with pre andpost-exercise spirometry. Pulmonary Problem List Shortness of breath Chronic cough Recommendations: ?? CPEX, pre and post-spirometry ?? D/C ICS-LABA ?? Can use albuterol prn ?? Note to be sent to Marian Pierre MD ?? Follow-up with me in 3 months Taurus Velásquez M.D. Pulmonary and Critical Care Fellow * Bo Rock MD - 12/19/2022 3:15 PM EST Patient interviewed and examined; data and radiographic studies reviewed. My findings agree with those outlined by Dr. Velásquez, whose note reflects our jointly formulated plan of care. Although Mr. Shipman carries the diagnosis of asthma, he has not responded to a variety of asthma treatments, including an inhaled LABA/ICS and several courses of prednisone. Thus, there is uncertaintyas to whether he actually has asthma, and even if he does, whether his current symptoms are actually due to asthma. Since he had no symptomatic benefit with the Symbicort, we told him he could stop it. Our plan is to proceed with a cardiopulmonary exercise test, including both pre- and post-exercise spirometry to look for evidence of exercise-induced bronchoconstriction. documented in this encounter Miscellaneous Notes * Addendum Note - Bo Rock MD - 12/19/2022 3:15 PM ESTAddended by: BO ROCK on: 12/21/2022 12:54 PM Modules accepted: Level of Service documented in this encounter Plan of Treatment Upcoming Encounters Date Type Department Care Team (Late st Contact Info) Description 01/28/2025 3:30 PM EDT Office Visit [place] [address] Raza Glasgow MD [facility] [place] [place] [address] documented as of this encounter Results * Pulmonary Function Testing (02/20/2023 11:59 PM EDT) Narrative COMPAS PFT - 02/20/2023 11:59 PM EDT Saurabh Dejesus MD ? 02/28/2023 ??2:28 PM ? CARDIOPULMONARY EXERCISE TEST REPORT Date of Testin02/20/23 Patient Name: ??Prasanna Shipman ? Height: 69.3 Weight: 218 lbs Requesting Provider: No att. providers found Indication for Testing: Shortness of breath Baseline Data: ?? Spirometry was mildly abnormal: ??FVC suggests possible restriction. No evidence of obstruction. ?? Oxygen saturation at rest was 99% on room air ?? Resting blood pressure was 130/88 ?? Twelve-lead ECG at rest showed normal sinus rhythm and a resting heart rate of 91 beats/min Exercise Test Protocol: ?? Incremental exercise testing was performed on a cycle ergometer to a maximum of 209 garner ?? Total exercise time was 11 minutes 30 seconds ?? The patient achieved 209 garner of work at peak exercise, or 93% predicted ?? Peak RADHA scale ratings of breathlessness and leg discomfort were 6 and 7, respectively General: ?? Peak VO2 was 23.3 ml/kg/min (77% pred) ?? Peak RER was 1.31 ?? Peak O2 pulse was 13 ml/beat (76% pred) ?? Anaerobic threshold occurred at a VO2 of 750 ml/kg/min, or 25% of predicted peak VO2 (normal 40-65%) Cardiac: ?? Peak heart rate was 173 beats/min, or ??102% of predicted maximum value ?? Blood pressure was 158/88 at peak exercise ?? Twelve-lead ECG during exercise showed precordial ST- elevations Respiratory: ?? Peak exercise ventilation was 110 liters/min or 66% of the estimated maximum voluntary ventilation ?? The calculated breathing reserve at peak exercise was 34% (normal >15-20%) ?? Respiratory rate was 56 breaths/min at maximal exercise ?? Oxygen saturation was 99% at rest and 91% at peak exercise Summary: ?? He reached anaerobic threshold early Mild desaturation, but no ventilatory limitations Abnormal cardiac response Reduced oxygen pulse, reduced total VO2, ST elevations in precordial leads resolving with rest Finding concerning for pathologic cardiac limitation. Additional evaluation for ischemia is warranted. Test was interpreted with assistance of Dr. Dejesus. Taurus Velásquez M.D. Pulmonary and Critical Care Fellow Pager: [phone] Report amended 02/28/2023 to correct error in description of exercise ST-changes in body of original report. Bo Rock MD PFT ORDERABLES COMPAS PFT documented in this encounter Visit Diagnoses Diagnosis SOB (shortness of breath) Shortness of breath SOB (shortness of breath) Shortness of breath documented in this encounter Care Teams Manager Of It Relationship Specialty Start Date End Date Marian Pierre MD [address] [place] [address] PCP - General Family Medicine 08/15/22 documented as of this encounter
--- OUTSIDE RECORDS SUMMARY | 2024-10-27 11:25 | XMS_ITS | Encounter Summary ---
[facility] [place] [address] Care Team Providers Care General Science Teacher Name Role Phone Marian Pierre MD Primary Care Provider Encounter Details Date Type Department Care Team (Latest Contact Info) Description 04/02/2023 Travel Social History Tobacco Use Types Packs/Day [...] PM EDT Office [place] [address] Raza Glasgow MD [facility] [place] [address] documented as of this encounter Visit Diagnoses Not on filedocumented in this encounter Care Teams General Science Teacher Relationship Specialty Start Date End Date Marian Pierre MD [address] [place] [id number] PCP - General Family Medicine 08/15/22 documented as of this encounter
--- OUTSIDE RECORDS SUMMARY | 2024-10-27 11:25 | XMS_ITS | Encounter Summary ---
Author Organization [facility] [address] Care Team Providers Care Union Laborer Name Role Phone Marian Pierre MD Primary Care Provider Encounter Details Date Type Department Care Team (Latest Contact Info) Description 04/09/2023 Travel Social History Tobacco Use Types Packs/Day [...] 3:30 PM EDT Office [place] [address] Raza Glasgow MD [facility] [place] [address] documented as of this encounter Visit Diagnoses Not on filedocumented in this encounter Care Teams Union Laborer Relationship Specialty Start Date End Date Marian Pierre MD [address] [place] [address] PCP - General Family Medicine 08/15/22 documented as of this encounter
--- OUTSIDE RECORDS SUMMARY | 2024-10-27 11:25 | XMS_ITS | Encounter Summary ---
[place] [address] Care Team Providers Care Rose Grading Supervisor Name Role Phone Marian Pierre MD Primary Care Provider Reason for Referral * Diagnostic Test (Routine) - Closed Specialty Diagnoses / Procedures Referred By Juanac t Referred To Contact Radiology Diagnoses Chest pressure Procedures CT Angiogram Coronary Arteries Kurt Tyler MD [facility] [place] [address] [facility] [place] [address] Referral ID Status Reason Start Date Expiration Date V isits Requested Visits Authorized [id number] Closed Specialty Service Requested 02/28/2023 08/30/2024 1 1 Reason for Visit * Diagnostic Test (Routine) - Closed Specialty Diagnoses / Procedures Referred By Contac t Referred To Contact Radiology Diagnoses Chest pressure Procedures CT Angiogram Coronary Arteries Kurt Tyler MD [facility] [place] [address] [facility] [place] [address] Referral ID Status Reason Start Date Expiration Date V isits Requested Visits Authorized [id number] Closed Specialty Service Requested 02/28/2023 08/30/2024 1 1 Encounter Details Date Type Department Care Team (Latest Contact Info) Description 03/30/2023 8:04 AM EDT - 03/30/2023 11:59 PM EDT Hospital [place] [phone] Kurt Tyler MD [facility] [place] [address] Chest pressure Discharge Disposition: Home Social History Tobacco Use [...] Sig Dispensed Refills Start Date End Date omeprazole (PriLOSEC) 40 mg Capsule, Delayed Release(E.C.) Take 40 mg by mouth daily. 06/15/2022 acetaminophen (Tylenol) 500 mg Tablet Take 1,000 mg by mouth every 6 hours as needed for Pain. multivitamin Tablet, Chewable Take by mouth. cetirizine (ZYRTEC) 10 mg Tablet PRN 03/07/2019 pramipexole (MIRAPEX) 1 mg TabletIndications:pt states he is taking .5 mg 0.5 mg. Indications: pt states he is taking .5 mg 10/19/2015 07/04/2023 documented as of this encounter Plan of Treatment Upcoming Encounters Date Type Department Care Team (Late st Contact Info) Description 01/28/2025 3:30 PM EDT Office [place] [phone] Raza Glasgow MD [facility] [place] [address] documented as of this encounter Procedures Procedure Name Priority Date/Time Associated Diagnosis Comments CT ANGIOGRAM CORONARY ARTERIES Routine 03/30/2023 8:54 AM EDT Chest pressure documented in this encounter Results * CT Angiogram Coronary Arteries (03/30/2023 8:54 AM EDT) Anatomical Region Laterality Modality Cardiac Computed Tomogra phy Impressions 03/30/2023 12:11 PM EDT 1. ??Predominantly calcified plaque in the distal left main causes less than 50% luminal narrowing. Predominantly noncalcified plaque in the proximal LAD causes less than 50% luminal narrowing. Calcified plaques in the proximal and mid RCA cause no luminal narrowing. 2. ??Coronary calcium score of 86, consistent with mild atherosclerotic plaque burden and 87%-ile rank based on age, race/ethnicity, and gender. CAD-RADS 2 - Mild nonobstructive coronary artery disease Thank you for letting us participate in the care of this patient. ??If you are a health care provider and have any questions regarding this report, please contact the number below. ??For patients who have questions please contact the health wound care physician that requested your imaging first. ? Electronically signed by: Kenn Ann MD, [facility] ??([phone]), at 03/30/2023 12:11 PM Narrative 03/30/2023 12:11 PM EDT CTA Coronary artery CLINICAL HISTORY: Abnormal ECG on stress test [...] reconstructions. FINDINGS: Coronary calcium score: Left main: ??Agatston score: 7 Left anterior descending: ??Agatston score: 70 Left circumflex: ??Agatston score: 0 Right coronary: ??Agatston score: 9 TOTAL: ??Agatston score: 86 Atherosclerotic plaque burden, based on [...] significant findings Skeletal Structures: No significant findings. Procedure Note Kenn Ann MD - 03/30/2023 CTA Coronary artery CLINICAL HISTORY: Abnormal ECG on stress test COMPARISON: No prior CT available for comparison TECHNIQUE: 3 mm thick axial contiguous sections through the heart wereobtained via ECG-gated axial mode acquisition without intravenous contrast. Aftertime bolus, 0.625 mm thick axial contiguous sections were obtained through theheart via ECG-gated helical acquisition during intravenous administration of 108cc Omnipaque 350. Post-processing was performed on an independent computer workstation including curved multiplanar reformats, coronary calciumscoring, and 3D reconstructions. FINDINGS: Coronary calcium score: [...] 11-100 moderate: 101-400 severe: >400 Reference: Briseida RYAN, Jeison H, Rebecca R, et al. ??Distribution ofcoronary artery calcium by race, gender, and age: results from the Multi-EthnicStudy of Atherosclerosis (SOLORZANO). Circulation. 2006;113(1):30-37. Coronary arteries: Right dominant coronary circulation. Left main: Normal origin. Trifurcates into LAD, ramus intermedius and circumflex. Calcified and noncalcified plaques cause less than 50%luminal narrowing Ramus intermedius: Small patent vessel Left anterior descending: Predominantly noncalcified plaque in theproximal LAD causes mild luminal narrowing. Shallow bridge spanning approximately 1.4cm in the mid LAD. Two diagonal branches: D1: Early take off, small patent vessel D2: Small patent vessel Left Circumflex: Small patent vessel. Terminates as obtuse marginalbranch. Right coronary: Normal origin. Calcified plaques in the proximal RCA causeno luminal narrowing. Calcified plaque in the mid RCA causes no luminalnarrowing. Posterior descending: No plaque or stenosis. Posterolateral branch: No plaque or stenosis. Cardiac chambers: No significant findings. Great vessels: No significant findings. Pulmonary parenchyma, airways, pleura: No significant findings. Upper abdomen: No significant findings Skeletal Structures: No significant findings. IMPRESSION 1. Predominantly calcified plaque in the distal left main causes lessthan 50% luminal narrowing. Predominantly noncalcified plaque in the proximal LADcauses less than 50% luminal narrowing. Calcified plaques in the proximal and midRCA cause no luminal narrowing. 2. Coronary calcium score of 86, consistent with mild atheroscleroticplaque burden and 87%-ile rank based on age, race/ethnicity, and gender. CAD-RADS 2 - Mild nonobstructive coronary artery disease Thank you for letting us participate in the care of this patient. If youare a health care provider and have any questions regarding this report,please contact the number below. For patients who have questions please contactthe health wound care physician that requested your imaging first. Kurt Tyler MD IMG CT ORDERABLES documented in this encounter Visit Diagnoses Diagnosis Chest pressure Other chest pain documented in this encounter Administered Medications Inactive Administered Medications - up to 3 most recent administrations Medication Order MAR Action Action Date Dose Rate Site iohexoL (Omnipaque) (350 mg/mL) solution 0-200 mL 0-200 mL, Intravenous, ONCE PRN, 1 dose, Starting on Sun03/30/23 at 0853, Until Sun03/30/23 at 0853, Per Protocol, Warning Vesicant/Irritant Medication , Radiology Contrast, Routine Given 03/30/2023 8:53 AM EDT 108 mLs documented in this encounter Care Teams Rose Grading Supervisor Relationship Specialty Start Date End Date Marian Pierre MD [address] [place] [id number] PCP - General Family Medicine 08/15/22 documented as of this encounter
--- OUTSIDE RECORDS SUMMARY | 2024-10-27 11:25 | XMS_ITS | Encounter Summary ---
[place] [address] Care Team Providers Care Summer Camp Counselor Name Role Phone Marian Pierre MD Primary Care Provider [phone] Reason for Visit * Reason Onset Date Comments Follow-up 12/26/2022 Encounter Details Date Type Department Care Team (Late st Contact Info) Description 12/26/2022 Telephone H[place]ology [place] [phone] Sherly Bateman, RN Follow-up Social History Tobacco Use Types Packs/Day Years [...] encounter Miscellaneous Notes * Telephone Encounter - Sherly Bateman RN - 12/26/2022 1:[address] Rebolledo, pt rescheduled for RTC for 02/15/23, labs at 1015a and MD visit at 11a. Spoke to pt to review appt times for 02/15/23. He is agreeable. Discussed that MD will coordinate with Dr Argueta on plan for upcoming surgery on 02/23/23. Aware to contact Heme Office with further questions or concerns. documented in this encounter Plan of Treatment Upcoming Encounters Date Type Department Care Team (Late st Contact Info) Description 01/28/2025 3:30 PM EDT Office [place] [address] Raza Glasgow MD [facility] [place] [address] documented as of this encounter Visit Diagnoses Not on filedocumented in this encounter Care Teams Summer Camp Counselor Relationship Specialty Start Date End Date Marian Pierre MD [address] [place] [address] PCP - General Family Medicine 08/15/22 documented as of this encounter
--- OUTSIDE RECORDS SUMMARY | 2024-10-27 11:25 | XMS_ITS | Encounter Summary ---
Author Organization [facility] Address [facility] [place] [address] Care Team Providers Care Sap Functional Analyst Name Role Phone Marian Pierre MD Primary Care Provider [phone] Encounter Details Date Type Department Care Team (Late st Contact Info) Description 12/18/2022 Telephone [place] [phone] Simtha Argueta MD [facility] [address] [place] [address] Social History Tobacco Use Types Packs/Day Years [...] encounter Miscellaneous Notes * Telephone Encounter - Smitha Argueta MD - 12/18/2022 1:48 PM EST I called and updated Mr. Shipman today on the plan for his surgery on 02/23. I spoke with the blood bank and his Auditor Internal, Dr. Rebolledo. The plan will be that he will come in on 01/31 for a follow up with Dr. Rebolledo and will get a Type and Screen done that day in addition to other labs. He will also need to come in the day before surgery for another Type and Screen and CBC. If platelets are <50,000 he will need a platelet transfusion on the day of surgery. Smitha Argueta MD documented in this encounter Plan of Treatment Upcoming Encounters Date Type Department Care Team (Late st Contact Info) Description 01/28/2025 3:30 PM EDT Office [place] [address] Raza Glasgow MD [facility] [place] [address] documented as of this encounter Visit Diagnoses Diagnosis Chronic ITP (idiopathic thrombocytopenia) Immune thrombocytopenic purpura documented in this encounter Care Teams Sap Functional Analyst Relationship Specialty Start Date End Date Marian Pierre MD [address] [place] [address] [place] [address] PCP - General Family Medicine 08/15/22 documented as of this encounter
--- OUTSIDE RECORDS SUMMARY | 2024-10-27 11:25 | XMS_ITS | Encounter Summary ---
Author Organization [facility] [place] [address] Care Team Providers Care Film Crew Member Name Role Phone Marian Pierre MD Primary Care Provider [phone] Encounter Details Date Type Department Care Team (Late Contact Info) Description 02/22/2023 Notes Only [place] [phone] Taurus Velásquez MD [facility] [place] [address] Social History Tobacco Use Types Packs/Day Years [...] 3:30 PM EDT Office Visit [place] [address] Raza Glasgow MD [facility] [place] [address] documented as of this encounter Visit Diagnoses Not on filedocumented in this encounter Care Teams Film Crew Member Relationship Specialty Start Date End Date Marian Pierre MD [address] [place] [address] PCP - General Family Medicine 08/15/22 documented as of this encounter
--- OUTSIDE RECORDS SUMMARY | 2024-10-27 11:25 | XMS_ITS | Encounter Summary ---
[place] [address] Care Team Providers Care Yard Attendant Name Role Phone Marian Pierre MD Primary Care Provider [phone] Encounter Details Date Type Department Care Team (Late st Contact Info) Description 01/03/2023 Telephone [place] [address] Coco Mi Social History Tobacco Use Types [...] * Telephone Encounter - Coco Mi - 01/03/2023 12:39 PM EST Mattmercedes, Patient is scheduled to have surgery on . Follow up appointment is as follows: Postoperative Follow-Up POD [address] Glasgow (Ok if it is +/- 2 days). Thank you!! documented in this encounter Plan of Treatment Upcoming Encounters Date Type Department Care Team (Late st Contact Info) Description 01/28/2025 3:30 PM EDT Office Visit [place] [address] Raza Glasgow MD [facility] [place] [address] documented as of this encounter Visit Diagnoses Not on filedocumented in this encounter Care Teams Yard Attendant Relationship Specialty Start Date End Date Marian Pierre MD [address] [place] [address] PCP - General Family Medicine 08/15/22 documented as of this encounter
--- OUTSIDE RECORDS SUMMARY | 2024-10-27 11:25 | XMS_ITS | Encounter Summary ---
[place] [address] Care Team Providers Care Director Of Customer Acquisition Name Role Phone Marian Pierre MD Primary Care Provider [phone] Encounter Details Date Type Department Care Team (Late st Contact Info) Description 04/12/2023 Telephone [place] [address] Kacie San RN Social History Tobacco Use [...] Telephone Encounter - Kacie San RN - 04/12/2023 5:17 PM EDTSummary: RN called patient regarding preauthorization request for prescription. RN called patient regarding preauthorization request for prescription. Patient left message to inquire. RN informed preauthorization request faxed. documented in this encounter Plan of Treatment Upcoming Encounters Date Type Department Care Team (Late st Contact Info) Description 01/28/2025 3:30 PM EDT Office [place] [address] Raza Glasgow MD [facility] [place] [address] documented as of this encounter Visit Diagnoses Not on filedocumented in this encounter Care Teams Director Of Customer Acquisition Relationship Specialty Start Date End Date Marian Pierre MD [address] [place] [phone] PCP - General Family Medicine 08/15/22 documented as of this encounter
--- OUTSIDE RECORDS SUMMARY | 2024-10-27 11:25 | XMS_ITS | Encounter Summary ---
Author Organization [facility] [place] [address] Care Team Providers Care Line Worker Name Role Phone Marian Pierre MD Primary Care Provider Encounter Details Date Type Department Care Team (Latest Contact Info) Description 12/29/2022 Travel Social History Tobacco Use Types Packs/Day [...] 3:30 PM EDT Office [place] [address] Raza Glasgow MD [facility] [address] documented as of this encounter Visit Diagnoses Not on filedocumented in this encounter Care Teams Line Worker Relationship Specialty Start Date End Date Marian Pierre MD [address] [place] [phone] PCP - General Family Medicine 08/15/22 documented as of this encounter
--- OUTSIDE RECORDS SUMMARY | 2024-10-27 11:25 | XMS_ITS | Encounter Summary ---
Author Organization [facility] [place] [address] Care Team Providers Care Picking Crew Supervisor Name Role Phone Marian Pierre MD Primary Care Provider [phone] Encounter Details Date Type Department Care Team (Late st Contact Info) Description 01/01/2023 3:40 PM EST Laboratory Appointment Lab [address] [place] [address] Social History Tobacco Use Types Packs/Day Years [...] 3:30 PM EDT Office Visit [place] [address] [facility] [place] [address] documented as of this encounter Procedures Procedure Name Priority Date/Time Associated Diagnosis Comments TYPE AND SCREEN VALIDITY Routine 01/01/2023 4:01 PM EST ABORH RECHECK STATUS Routine 01/01/2023 4:01 PM EST ABO/RH TYPING Routine 01/01/2023 4:01 PM EST ANTIBODY SCREEN Routine 01/01/2023 4:01 PM EST documented in this encounter Results * Type and Screen Validity (01/01/2023 4:01 PM EST) T&S only valid at [facility] Comment:This Type and Screen result is only valid at the [facility] Blood Venous Draw / Unknown 01/01/2023 4:01 PM EST 01/01/2023 4:11 PM EST Narrative Resulting Agency Comment Spec In Lab Smitha Argueta MD BLOOD BANK LAB ORDER JESUS Performing Organization Address City/[facility]/ZIP Co de Phone Number [facility] [place] [address] * ABORH Recheck Status (01/01/2023 4:01 PM EST) ABORH Recheck Order Order Placed [facility] ABORH Type Recheck Not Performed [facility] Blood Venous Draw / Unknown 01/01/2023 4:01 PM EST 01/01/2023 4:11 PM EST Narrative Resulting Agency Comment Spec In Lab Smitha Argueta MD BLOOD BANK LAB ORDER JESUS Performing Organization Address City/[facility]/ZIP Co de Phone Number [facility] [place] [address] * Antibody screen (01/01/2023 4:01 PM EST) Ab Screen Interp Negative [facility] Expires at [id number] on: 02/15/2023 [facility] Blood Venous Draw / Unknown 01/01/2023 4:01 PM EST 01/01/2023 4:11 PM EST Narrative Resulting Agency Comment Spec In Lab Smitha Argueta MD BLOOD BANK LAB ORDER JESUS [facility] [place] [address] * ABO/Rh Typing (01/01/2023 4:01 PM EST) ABORH Type A Pos [facility] Blood Venous Draw / Unknown 01/01/2023 4:01 PM EST 01/01/2023 4:11 PM EST Narrative Resulting Agency Comment Spec In Lab Smitha Argueta MD BLOOD BANK [place] [address] documented in this encounter Visit Diagnoses Not on filedocumented in this encounter Care Teams Picking Crew Supervisor Relationship Specialty Start Date End Date Marian Pierre MD [address] [place] [phone] PCP - General Family Medicine 08/15/22 documented as of this encounter
--- OUTSIDE RECORDS SUMMARY | 2024-10-27 11:25 | XMS_ITS | Encounter Summary ---
Author Organization [facility] [place] [address] Care Team Providers Care Game Technician Name Role Phone Marian Pierre MD Primary Care Provider Encounter Details Date Type Department Care Team (Latest Contact Info) Description 02/28/2023 Travel Social History Tobacco Use Types Packs/Day [...] 3:30 PM EDT Office [place] [address] Raza Glasgow MD [facility] [place] [address] documented as of this encounter Visit Diagnoses Not on filedocumented in this encounter Care Teams Game Technician Relationship Specialty Start Date End Date Marian Pierre MD [address] [place] [phone] PCP - General Family Medicine 08/15/22 documented as of this encounter
--- OUTSIDE RECORDS SUMMARY | 2024-10-27 11:25 | XMS_ITS | Encounter Summary ---
[facility] [place] [address] Care Team Providers Care Development Educator Name Role Phone Marian Pierre MD Primary Care Provider [phone] Reason for Visit * Reason Comments Establish Care Sinus pressure, sinu sitis, itp, * Consultation (Routine) - Closed Specialty Diagnoses / Procedures Referred By Den tamayo Referred To Contact Otolaryngology Diagnoses Acute recurrent maxillary sinusitis Malika Dra[address] [place] [address] Raza Glasgow MD [facility] [place] [address] Referral ID Status Reason Start Date Expiration Date V isits Requested Visits Authorized [id number] Closed Consult, Test & Treat 12/18/2022 12/18/2023 1 1 Encounter Details Date Type Department Care Team (Late st Contact Info) Description 01/01/2023 4:30 PM EST Office [place] [address] Raza Glasgow MD [facility] [place] [address] Chronic pansinusitis; Thrombocytopenia; Nasal obstruction Social History Tobacco Use Types Packs/Day Years [...] - Inhaled Oxygen Concentration - - Weight 97.1 kg (214 lb) 01/01/2023 4:09 PM EST Height 175.3 cm (5' 9) 01/01/2023 4:09 PM EST Body Mass Index 31.6 01/01/2023 4:09 PM EST documented in this encounter Patient Instructions * Patient Instructions* Raza Glasgow MD - 01/01/2023 4:30 PM EST Images from the original note were not included. What is Functional Endoscopic Sinus Surgery (FESS)? One way FESS differs from traditional sinus surgery is that a thin rigid optical telescope, called an endoscope, is used in the nose to view the nasal cavity and sinuses. The endoscope allows for better visualization and magnification of diseased or problem areas. This endoscopic exam, along with CT scans, may reveal a problem that was not evident before. Another difference is that FESS focuses on treating the underlying cause of the problem. The ethmoid sinuses are usually opened. This permits direct visualization of the maxillary, frontal, and sphenoid sinuses and diseased or obstructive tissue can be removed if necessary. There is often less removal of normal tissue and surgery can frequently be performed on an outpatient basis without the needfor painful packing that was used in the past. Generally, there are not external scars, little swelling, and only mild discomfort. The goal of FESS is to open the sinuses more widely. Normally the openings to the sinuses are long,narrow bony channels covered with mucosa or the lining of the sinuses. If this lining swells from inflammation, the sinuses can become blocked and an infection can develop. FESS removes some of thesethin bony partitions and creates larger openings into the sinuses. After FESS, patients can still develop inflammation from allergies or viruses, but hopefully when the sinus lining swells, the sinuswill still remain open. This will permit easier treatment of subsequent exacerbations with more rapid resolution and less severe infections. Powered instrumentation can be useful during FESS to precisely remove polyps when present and otherdiseased tissue, while sparing the surrounding normal sinus lining and adjacent structures. The latest generation of hand instruments allows the surgeon to meticulously open the sinuses, while avoiding the grab and tear techniques of the past. Once the diseased tissue is removed and the inflammation subsides, the injured sinus lining often returns to a normal state with time. Although FESS is usually safe, complications can infrequently (1% or less) occur. The most common problem after surgery is a nose bleed. The sinuses are also adjacent to the brain and to the eye and in rare cases damage can occur to these structures. Like with any surgery, patients should have a clear understanding of the risks and benefits prior to undergoing a sinus procedure. When is computer-guided surgery used? Computer assisted surgical navigation is a relatively new tool used in select cases. These devices provide information on the anatomic location of instruments within the sinuses during surgery, and can also be used to perform 3D reconstructions that may be helpful to your surgeon. It is typically indicated for revision cases, nasal polyposis, or skull base tumors where normal surgical landmarks have been removed or altered. As with all equipment, image-guided systems can be wrong from time to time and surgeons cannot rely solely on the technology. They must correlate the image-guided information with their training, experience, and knowledge of the anatomy in order to avoid complications due to human or technical errors. Instructions Following Nasal Surgery What to Expect [...] vision Unrelenting headache Unrelenting nausea and vomiting Rhinology, Endoscopic Sinus & Skull Base Surgery Raza Glasgow MD Rhinology, Endoscopic Sinus & Skull Base Surgery Division of Otolaryngology - [place] [address] [facility] SINUSITIS Q&A WHAT ARE THE SINUSES? The sinuses are air filled structures, within the bones of the face. There are four types of sinuses on each side of the face, making eight in total. The maxillary sinuses are located in the cheek bones. The ethmoid and sphenoid sinuses are located between the eyes. The frontal sinuses are located in the forehead. The bony hendrix of the sinuses have a soft tissue lining called mucosa. The mucosa is programmed to move the mucus that it makes out of the sinus through a small hole that connects thesinus to the inside of the nose (also called the nasal cavity). (See Nasal Anatomy, Sinus Anatomy and Nasal Physiology) WHAT IS THE PURPOSE OF THE SINUSES? The sinuses are thought to have multiple roles. These roles include acting as a cushion to protect the brain from injury, humidifying and warming the air that you breath, and contributing to the resonance of your voice. WHAT IS SINUSITIS? Sinusitis is inflammation of the sinuses that causes symptoms such as stuffy nose (nasal congestion), thickened nasal drainage that is often yellow or green, decreased sense of smell, and pain or pressure in the face (See Adult Sinusitis and Pediatric Sinusitis). Because inflammation of the nasal cavity (rhinitis) is almost always present when there is inflammation of the sinuses, the term rhinosinusitis is used by Ear, Nose and Throat physicians (ENTs or otolaryngologists) instead of the term sinusitis. Viruses, bacteria, and nasal allergies are common causes of inflammation (See Allergic Rhinitis). The inflamed, swollen lining of the nasal and sinus cavities leads to blockage of the small sinus openings. When a sinus is unable to circulate air and remove the mucus that is normally produced, it becomes vulnerable to infection. Sinusitis is categorized into types according to how long the symptoms persist: Acute - symptoms are present for 4 weeks or less Subacute - symptoms are present for more than 4 weeks, but less than 12 weeks Chronic - symptoms are present for 12 weeks or greater Recurrent acute - 4 or more acute episodes of sinusitis occurring within 1 year, with no symptoms between episodes Acute exacerbation of chronic sinusitis - an episode of worsening symptoms in a patient with chronic sinusitis HOW COMMON IS SINUSITIS? According to the most recent available data from the Center for Disease Control and Prevention (CDC) nearly 27 million adults were diagnosed with sinusitis in the [place] in 2016. Chronic sinusitis effects 11% of the adult [place] population and is one of the most common chronic illnesses in [place]. WHAT CAUSES SINUSITIS? The most common cause of sinusitis is blockage of the sinus openings, called ostia, due to inflammation. Because the openings are small, blockage can easily occur. Causes of sinonasal inflammation include: Viruses Bacteria Fungus Nasal allergy Reactive airway disease (such as Asthma and Samter's triad) (See Sinusitis and Asthma) Congenital diseases (such as Cystic Fibrosis and Kartagener syndrome) (See Cystic Fibrosis) Inflammatory diseases (such as Sarcoidosis and Cherelle's Granulomatosis) Tooth disease Gastroesophageal reflux Hormones (when taking control pills and during ) Smoking Intranasal drug use Irritants and pollution in the environment Blockage of the ostia may also be due to: Abnormal development of the nasal structures (such as an enlarged turbinate (or frieda bullosa) (see Nasal Anatomy) Scar tissue caused by injury or surgery A growth or tumor (See Sinus Tumors) Nasal packing Additional risk factors include: Immunodeficiencies (such as hypogammaglobulinemia and AIDS) which prevent the body from fighting off infection When a sinus is unable to circulate air and remove the mucus that is normally produced, it becomes an ideal place for bacteria to grow. Many types of bacteria can infect the sinuses. The bacteria most often found in acute sinusitis are: Streptococcus pneumoniae Hemophilus pneumoniae Moraxella catarrhalis In chronic sinusitis, multiple bacteria are often present. In addition, these bacteria may be resistant to certain antibiotics. Bacteria commonly found in chronic sinusitis include: Staphylococcus aureus Gram negative bacteria (such as Pseudomonas aeruginosa) HOW IS SINUSITIS DIAGNOSED? The diagnosis of sinusitis is made based on the symptoms that a patient has, combined with the findings from the examination and/or testing performed by a physician. Your voice pathologist will ask questions to determine what symptoms you are having and for how long. Symptoms used to make the diagnosis of sinusitis include: Nasal drainage that is thick and colored (also called purulent) Pain or pressure in the forehead, cheeks or teeth Stuffy nose (also called nasal congestion) Decreased sense of smell Additional symptoms that you may experience include: Post nasal drip Cough Bad breath Headache Ear pain or pressure Fever Fatigue During your visit your voice pathologist will examine your head and neck, and may recommend a procedure called nasal endoscopy (See Nasal Endoscopy). Nasal endoscopy is an examination of the nasal cavity that is performed in the office with a small, lighted telescope. The nose is usually first sprayed with a combination of two medications. A nasal decongestant spray is used to decrease any swelling in the nose. An anesthetic spray is used to decrease any discomfort. Nasal endoscopy provides a more detailed view of the nasal cavity that may identify the inflammatory signs needed to make a diagnosis of sinusitis. If chronic sinusitis is suspected, but the signs are not seen on nasal endoscopy,your voice pathologist may recommend a CT scan of sinuses to confirm the diagnosis. HOW IS SINUSITIS TREATED? Much like the common cold, acute sinusitis caused by a virus will resolve without treatment. Because viruses do not respond to antibiotics, viral sinusitis is managed with supportive care such as nasal saline rinses (See Sinonasal Irrigations), rest and hydration. Medications, such as decongestants, mucolytics and pain relievers, may also help decrease the severity of your symptoms. The common treatment for acute bacterial sinusitis is an appropriate antibiotic. However, some physicians and patients may prefer watchful waiting (no antibiotic), as most acute bacteria infections will resolve without antibiotics. Your physician will choose an antibiotic based on: The most likely type of bacteria causing the infection Resistance of the bacteria to certain antibiotics Any medication allergies you may have Other medications you are taking Other medical conditions you are being treated for Previous treatments you have had during this infection Treatment typically lasts 10 - 14 days. Pain relief should also be provided with over the counter or prescription medications. As with acute sinusitis caused by viruses, additional medications, such as steroids, decongestants and mucolytics may be recommended to decrease the severity and duration of your symptoms. Nasal saline rinses are also often recommended. Because of the variety of underlying causes, the treatment of chronic sinusitis is more complicated. In general, however, chronic sinusitis requires longer term medical therapy. Antibiotics, when required, are often selected based on the results of sinus cultures and are prescribed for 3-4 weeks. Aculture is a test that uses a sample of a patient's nasal mucous to identify which bacteria are present. WHO TREATS SINUSITIS? Pediatricians, family practitioners, internists, allergists and pulmonologists are all involved in the treatment of patients with sinusitis. However, patients suffering from symptoms of recurrent acute or chronic sinusitis are often referred to an voice pathologist. Otolaryngologists, or ENT physicians, are specialists providing both medical and surgical treatment of disorders or the ears, nose and throat. Some otolaryngologists subspecialize in rhinology; the management of diseases of the nose and sinuses. Patients with severe or complicated disease and those who have had prior surgery are often referred to a wood stock blank handler for evaluation and treatment. WHEN IS SURGERY NEEDED? Sinus surgery is reserved for patients with chronic sinusitis who still have symptoms despite beingtreated with appropriate medications. It is important to know that sinusitis should to be treated medically before considering surgery. This is because even after successful sinus surgery, most patients with chronic sinusitis will continue to require medication to control the source(s) of inflammation and prevent the return of symptoms. For patients who do not see improvement with medical treatment, sinus surgery is an excellent option. Today, sinus surgery is typically performed through the nose with a nasal endoscope (See Endoscopic Sinus Surgery). This means that there are no incisions through the skin. The main goal of endoscopic sinus surgery is to restore normal function to the blocked sinuses. During the procedure, the surgeon locates and enlarges the small natural drainage pathways (or ostia) of the sinuses. Very rarely patients with acute bacterial sinusitis will develop a complication when the infection spreads to nearby structures such as the eye or the brain. Such complications are considered emergencies. Typically, surgery is required in these patients to drain the collection of infection and enlarge the ostia of the involved sinuses. Copyright ?? 2020 by [employer] The [employer] presents this information as a service to current, past and future patients of its members as well as its membership. All information is believed to be accurate and true. Diligent efforts have been made to ensure objectivity and balance. [employer], its canvassing manager, its Officers, its representatives, and its members are not responsible for any errors and/or omissions. [employer] cannot provide specific medical advice to patients via the Internet. All patients are encouraged to direct their specific questions to their personal physicians. [employer] presents this information for patients so that patients can understand and participate intheir own medical care documented in this encounter Progress Notes * Raza Glasgow MD - 01/01/2023 4:30 PM EST Images from the original note were not included. Rhinology, Endoscopic Sinus & Skull Base Surgery History of Present Illness: Dear Dr. Pierre, Thank you for referring Mr. Prasanna Shipman to me. The following is my evaluation and plan. If you have any questions or concerns, please do not hesitate to contact me. I thank you for allowing me to participate in the care. I look forward to working with you in the future. I had the pleasure of seeing Mr. Prasanna Shipman at your request for evaluation of chronic sinusitis.Prasanna is a 52 y.o. male with a history of idiopathic thrombocytopenic purpura whose History of Present Illness includes symptoms of posterior rhinorrhea, bilateral nasal congestion, poor sense of smell and frontal sinus pressure. Associated symptoms include headaches and left worse than right Eustachian tube dysfunction (followed by local ENT Dr. Sellers for this). He does experience occasional epistaxis, no severe epistaxis requiring surgical intervention nor packing in the past. Patient reports no purulent anterior rhinorrhea, nasal obstruction, changes in vision or diplopia. 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 Prior treatment have included priorcourses of oral antibiotics, systemic steroids (Prednisone x3 week course), topical intranasal steroid sprays for greater than 6 weeks and nasal saline. Prior allergy testing has been performed, and there is a reported environmental allergies by history. There is not a history of asthma. Prior imaging includes CT sinus 10/24/2022 showing Past Medical History: Diagnosis Date ??? Allergy ??? asthma ??? prostatitis ??? restless leg Past Surgical History: Procedure Laterality Date ??? CT GUIDED INJECTION SI JOINT 09/10/2018 CT Guided Injection SI Joint 09/10/2018 [facility] RAD CAT SCAN ??? CT GUIDED NERVE BLOCK LUMBAR SINGLE LEVEL 08/05/2019 CT Guided Nerve Block Lumbar Single Level 08/05/2019 [facility] RAD CAT SCAN ??? PRO UNLISTED PROCEDURE, MUSCULOSKELETAL SYSTEM, GENERAL Knee ??? PRO UNLISTED PX UR SYS June, Vasectomy Current Outpatient Medications Medication Sig Dispense Refill ??? predniSONE (Deltasone) 10 mg Tablet Take 10 mg by mouth daily. Prednisone taper ??? Symbicort 160-4.5 mcg/actuation HFA Aerosol Inhaler Inhale 2 puffs into the lungs 2 times daily. 1 each 3 ??? Ventolin HFA 90 mcg/actuation HFA Aerosol Inhaler Inhale 2 puffs into the lungs every 4 hours as needed for Wheezing. 1 each 3 ??? omeprazole (PriLOSEC) 40 mg Capsule, Delayed Release(E.C.) Take 40 mg by mouth daily. ??? acetaminophen (Tylenol) 500 mg Tablet Take 1,000 mg by mouth every 6 hours as needed for Pain. ??? multivitamin Tablet, Chewable Take by mouth. ??? cetirizine (ZYRTEC) 10 mg Tablet PRN ??? pramipexole (MIRAPEX) 1 mg Tablet 0.5 mg. Indications: pt states he is taking .5 mg ??? mometasone furoate, bulk, 100 % Powder 0.6 mg by Nasal route 2 times daily for 30 days. 0.6 mg by nasal route twice daily in nasal rinse bottle with 240 mL saline 1000 g 11 No current facility-administered medications for this visit. Allergies Allergen Reactions ??? Pollen, Micronized Itching Watery eyes and sneezing Social History Tobacco Use ??? Smoking status: Never ??? Smokeless tobacco: Never Substance Use Topics ??? Alcohol use: Yes Types: 1 Glasses of wine per week Comment: once a month Family History Problem Relation Age of Onset ??? Depression Maternal Uncle ??? High Blood Pressure Father Review of Systems: Pertinent positives are discussed in the HPI. The ROS is otherwise negative for visual and eye problems, cardiovascular history, lung problems or shortness of breath, urinary problems, gastrointestinal problems, muscle and joint problems, skin diseases, neurological problems, psychological problems, thyroid or endocrine problems, lymphatic and hematologic problems, allergies, easy bruising/bleeding. Physical Exam: Constitutional: Well developed, well nourished, normal communicative ability, normal vocal quality,afebrile, vital signs as per nursing note. Eyes: Extraocular movements intact and normal, sclera and conjunctiva clear, no proptosis Head and Facial: Normocephalic, atraumatic, no suspicious lesions; normal facial muscle tone and symmetry; no sinus tenderness on palpation; salivary glands normal size, without masses Right Ear: Auricle without deformity/lesions. Left Ear: Auricle without deformity/lesions. Nose: Septum relatively midline. Inferior turbinates hypertrophied bilaterally. Oral Cavity: Normal tongue mobility, symmetrical palatal elevation with normal gag reflex, no dental pathology. Oropharynx: No lesions or masses, tongue base and tonsils unremarkable Neck: No masses, adenopathy or thyroid abnormalities TMJ: Non-tender, no crepitus. Respiratory: No stridor, wheezing, retractions or tachypnea. Musculoskeletal: Normal gross movement and strength of all extremities with no apparent paralysis or paresis. Integumentary: No skin lesions noted on face, neck or hands, no rashes or suspicious areas. Neurologic: Cranial nerves grossly intact. No nystagmus. No cerebellar signs. Psychiatric: Alert and oriented x 3. No signs of delusion or expressions of suicidal thoughts. Hematology/Lymphatics: No lymphadenopathy palpable throughout neck, face or salivary glands. Based upon the above history and physical exam, it was elected to perform endoscopy. Procedure: Nasal Endoscopy (CPT 39419) Indication: Symptoms suggestive of chronic rhinosinusitis. Due to limited visualization with anterior rhinoscopy that does not provide sufficient clinical information to establish a diagnosis, sinonasal endoscopy was performed using topical anesthetic and vasoconstrictors as needed. This is medically necessary to endoscopy guided cultures for recurrent sinusitis which has failed empiric antibiotic therapy Surgeon: Raza Glasgow MD Informed Consent: The procedure, risks and benefits were discussed with the patient and consent obtained to proceed. Procedure: Topical spray consisting of 1% oxymetazoline and 4% lidocaine was sprayed into the nasalcavity bilaterally. A rigid endoscope was then used to visualize each nasal cavity, utilizing inferior, central and superior passes. Patient tolerated well. Findings: Septum: Relatively straight Interior nasal cavity: No significant edema, purulence or obstructive lesions bilaterally Inferior turbinates: Hypertrophied bilaterally Middle turbinates: Normal bilaterally Right middle meatus, superior meatus, and sphenoethmoidal recess are without edema, polyps or purulence Left middle meatus with crusting and mucus cultured today, otherwise superior meatus, and sphenoethmoidal recess are without edema, polyps or purulence Olfactory cleft: Patent bilaterally Visualized portion of nasopharynx unremarkable CT sinus 10/24/2022 Partial opacification of left worse than right maxillary, anterior/posterior ethmoid and sphenoid sinuses. Bilateral frontal sinus partial opacification. [place]-Phillip Score Scores Each Sinus 0 - 2, OMC 0 or 2 0 = no opacification, 1 = partial opacification, 2 = complete opacification Right Left Maxillary: 1 Maxillary: 1 Anterior Ethmoid: 1 Anterior Ethmoid: 1 Posterior Ethmoid: 1 Posterior Ethmoid: 1 Sphenoid: 1 Sphenoid: 1 Frontal: 1 Frontal: 1 Osteomeatal complex: 2 Osteomeatal complex: 2 Total (maximum = 24): 14 Assessment and Plan: Encounter Diagnoses Name Primary? Chronic pansinusitis ??? Thrombocytopenia ??? Nasal obstruction The patient has been very appropriate medically managed to date, specifically including multiple prior courses of oral antibiotics, systemic steroids, at least 4-6 weeks of intranasal steroids and irrigations, which were unsuccessful. However today is reporting partial control of symptoms. I discussed the risks and benefits of medical therapy versus surgery, to include bleeding, infection, injuryto the eye/visual loss/double vision, cerebrospinal fluid (CSF) leak, tearing, altered smell and taste, recurrent symptoms, need for further surgery and they wish to proceed. We discussed realistic expectations of surgery and the fact that surgery is not curative. We specifically discussed that I would recommend trialing additional medical management prior to proceeding with surgical scheduling to include a 4-6 week trial of mometasone nasal irrigations twice daily. I reviewed that he is at elevated risk of intraoperative and postoperative epistaxis in the setting of known thrombocytopenia. He reviews that he is undergoing hernia surgery on February 23, 2023 and hematology has recommendations for preoperative platelet transfusion threshold of 50k. I reviewed that I would need for his platelet count to be >100k before surgery and remain corrected in the first several weeks after surgery to minimize his risk of severe epistaxis. I have [facility] hematology provider Dr. Rebolledo to see if this is feasible. He verbalized understanding of these risks and is agreeable to trialing the mometasone irrigations twice daily. We will place surgical request orders and he will require hematology follow-up with preoperative platelet transfusion orders to achieve >100k. Appreciate assistance in scheduling. Functional endoscopic sinus surgery is medically necessary in this case in the setting of: Chronic rhinosinusitis with persistent symptoms of bilateral pain, pressure and drainage (same sideas CT abnormalities, see below) lasting longer than 12 weeks Post-treatment CT scan of the sinuses shows the following abnormality for which surgery is indicated: 1. Bilateral total ethmoidectomy including sphenoidotomy with removal of tissue (CPT 96447-42) 2. Bilateral frontal sinusotomy (CPT 12122-85) 3. Bilateral maxillary antrostomy with removal of tissue (CPT 94393-06) 4. Bilateral outfracture of inferior turbinates (CPT 93546-67) 5. Stereotactic image guidance (CPT 28253) Thank you very much for asking me to see this very pleasant patient. Sincerely, Raza Glasgow MD Rhinology, Endoscopic Sinus & Skull Base Surgery Division of Otolaryngology - [place] [address] [facility] Over 50% of the total face to face and non-face to face time of 55 minutes were spent reviewing consultation documentation and/or pertinent imaging studies, counseling or coordinating care and discussing medical and/or surgical treatments as described above. documented in this encounter Plan of Treatment Upcoming Encounters Date Type Department Care Team (Late st Contact Info) Description 01/28/2025 3:30 PM EDT Office [place] [address] Raza Glasgow MD [facility] [place] [address] documented as of this encounter Procedures Procedure Name Priority Date/Time Associated Diagnosis Comments ANAEROBIC CULTURE Routine 01/01/2023 5:0 2 PM EST Chronic pansinusitis Thrombocytopenia Nasal obstruction HC WOUND/ABSCESS CX Routine 01/01/2023 5 :02 PM EST Chronic pansinusitis Thrombocytopenia Nasal obstruction ABSCESS/WOUND ASPIRATE CULTURE Routine 01/01/2023 5:02 PM EST Chronic pansinusitis Thrombocytopenia Nasal obstruction documented in this encounter Results * Anaerobic Culture (01/01/2023 5:02 PM EST) Anaerobic Culture No anaerobic organisms isolated [facility] Fluid NASAL STRUCTURE / Unknown 01/01/2023 5:02 PM EST 01/01/2023 5:54 PM EST Comment:Left nasal Narrative Resulting Agency Comment Spec In Lab Raza Glasgow MD MICROBIOLOGY - GENER AL ORDERABLES Performing Organization Address [facility] [place] [address] * Abscess/Wound Aspirate Culture (01/01/2023 5:02 PM EST) Abscess/Wound Aspirate Culture Few mixed bacterial morphotypes suggestive of normal upper respiratory za [facility] Gram Stain Many Neutrophils seen No microorganisms seen. [facility] Fluid NASAL STRUCTURE / Unknown 01/01/2023 5:02 PM EST 01/01/2023 5:54 PM EST Comment:Left nasal Narrative Resulting Agency Comment Spec In Lab Raza Glasgow MD MICROBIOLOGY - GENER AL ORDERABLES Performing Organization Address [facility] [place] [address] documented in this encounter Visit Diagnoses Diagnosis Chronic pansinusitis Other chronic sinusitis Thrombocytopenia Thrombocytopenia, unspecified Nasal obstruction Other diseases of nasal cavity and sinuses documented in this encounter Care Teams Development Educator Relationship Specialty Start Date End Date Marian Pierre MD [address] [place] [address] [place] [address] PCP - General Family Medicine 08/15/22 documented as of this encounter
--- OUTSIDE RECORDS SUMMARY | 2024-10-27 11:25 | XMS_ITS | Encounter Summary ---
[facility] [place] [address] Care Team Providers Care Senior Materials Planner Name Role Phone Marian Pierre MD Primary Care Provider Encounter Details Date Type Department Care Team (Latest Contact Info) Description 01/01/2023 Travel Social History Tobacco Use Types Packs/Day [...] 3:30 PM EDT Office [place] [address] Raza Glasgow MD [facility] [place] [address] documented as of this encounter Visit Diagnoses Not on filedocumented in this encounter Care Teams Senior Materials Planner Relationship Specialty Start Date End Date Marian Pierre MD [address] [place] [id number] PCP - General Family Medicine 08/15/22 documented as of this encounter
--- OUTSIDE RECORDS SUMMARY | 2024-10-27 11:25 | XMS_ITS | Encounter Summary ---
[place] [address] Care Team Providers Care Air Boatswain Name Role Phone Marian Pierre MD Primary Care Provider [phone] Reason for Visit * Consultation (Routine) - Closed Specialty Diagnoses / Procedures Referred By Contac t Referred To Contact General Surgery Diagnoses Bilateral inguinal hernia without obstruction or gangrene, recurrence not specified Reginald Hansen MD [address] [place] [address] [facility] [address] [place] [address] Referral ID Status Reason Start Date Expiration Date V isits Requested Visits Authorized [id number] Closed Consult, Test & Treat PCP Updated and/or Approved 11/30/2022 11/30/2023 6 6 Encounter Details Date Type Department Care Team (Late st Contact Info) Description 12/11/2022 1:00 PM EST Office [place] [address] Smitha Argueta MD [facility] [place] [address] Non-recurrent bilateral inguinal hernia without obstruction or gangrene; Umbilical hernia without obstruction and without gangrene Social History Tobacco Use Types Packs/Day Years [...] Sign Reading Time Taken Comments Blood Pressure 150/87 12/11/2022 12:49 PM EST Pulse 84 12/11/2022 12:49 PM EST Temperature 36.2 ??C (97.2 ??F) 12/11/2022 12:[address] Respiratory Rate 16 12/11/2022 12:49 PM EST Oxygen Saturation 100% 12/11/2022 12:49 PM EST Inhaled Oxygen Concentration - - Weight 96.2 kg (212 lb) 12/11/2022 12:49 PM EST Height 175.3 cm (5' 9) 12/11/2022 12:49 PM EST Body Mass Index 31.31 12/11/2022 12:49 PM EST documented in this encounter Progress Notes * Smitha Argueta MD - 12/11/2022 1:00 PM EST [facility] General Surgery History and Physical History of Present Illness: Prasanna Shipman is a 52 y.o. male referred by Dr. Reginald Hansen V for an umbilical hernia and inguinal hernia. Mr. Shipman has previously been evaluated for bilateral inguinal hernias and an umbilical hernia at [facility] where surgery was being planned. He says that he has been having pain in his right groin since mid last year. He first noticed it at the gym while lifting. He describes it as a cramping and tugging pain. It will last a few seconds and then go away. This seems to actually be improving. He noticed left groin pain for the last couple of months. He says it hurts with lunge motions and running is uncomfortable. He has modified his work outs. He is unsure if he has a bulge in either groin. He was told he had an umbilical hernia 5 years ago. He is unsure if this bothers him. He denies obstructive symptoms such as nausea, vomiting or obstipation. Currently on a prednisone taper; following with ENT He has ITP but is not on medications for this currently. Hernia Risk Factors: ??? Constipation- no; IBS-D ??? Frequent Heavy Lifting- gym 2-3 days/week. ??? LUTS- sometimes he has trouble emptying bladder; has to stand ??? Cough- Yes; had COVID 2x ??? Smoking history- no ??? Weight gain- lost 15lbs ??? BMI- 31 ??? Hemoglobin A1c- n/a ? ? >4 METS- yes Past Medical History: Patient Active Problem List Diagnosis Code ??? Thrombocytopenia D69.6 ??? Multiple lipomas D17.9 ??? Obesity E66.9 ??? Spleen enlarged R16.1 ??? Right buttock pain M79.18 Past Surgical History: Past Surgical History: Procedure Laterality Date ??? CT GUIDED INJECTION SI JOINT 09/10/2018 CT Guided Injection SI Joint 09/10/2018 [facility] RAD CAT SCAN ??? CT GUIDED NERVE BLOCK LUMBAR SINGLE LEVEL 08/05/2019 CT Guided Nerve Block Lumbar Single Level 08/05/2019 [facility] RAD CAT SCAN ??? PRO UNLISTED PROCEDURE, MUSCULOSKELETAL SYSTEM, GENERAL Knee ??? PRO UNLISTED PX UR SYS June, Vasectomy Medications: Current Outpatient Medications on File Prior to Visit Medication Sig Dispense Refill ??? predniSONE (Deltasone) [...] facility-administered medications on file prior to visit. Allergies: Pollen, micronized Family History: Family History Problem Relation Age of Onset ??? Depression Maternal Uncle ??? High Blood Pressure Father No history of bleeding disorders, clotting disorders, or complications from anesthesia. Social History: reports that he has never smoked. He has never used smokeless tobacco. He reports current alcohol use. He reports that he does not use drugs. Review of Systems: A 10 point review of systems was performed. Pertinent positives and negatives are listed in the above HPI. All other systems are negative. Physical Exam: Vital Signs: BP 150/87 (BP Location (NBP): Left arm, Patient Position: Sitting) Pulse 84 Temp 36.2 ??C (97.2 ??F) Resp 16 Ht 175.3 cm (5' 9) Wt 96.2 kg (212 lb) SpO2 100% BMI 31.31 kg/m?? General appearance: Alert and oriented, appears stated age, well groomed HEENT: No scleral icterus, normocephalic, atraumatic Neck: No carotid bruits Skin: No jaundice Heart: Regular rate and rhythm Lungs: Symmetric chest rise, no distress, clear breath sounds bilaterally Abdomen: Non distended, soft, non tender to palpation, small umbilical and small inguinal hernias bilaterally. Testicles are descended bilaterally. Extremities: Moves all four extremities, no gross deformity. Studies: Imaging: My review of a CT scan from 07/27/22 shows a small fat containing umbilical hernia <1cm and bilateral fat containing inguinal hernias. Assessment and Recommendation: A 52 y.o.-old male with bilateral inguinal hernias and a small umbilical hernia. The patient was educated on the natural history of hernias, approaches for repair and we reviewed his imaging together. We had a long discussion on expectations from hernia repair and the complexity of groin pain. Some of his pain and discomfort seems more musculoskeletal in origin and may not completely resolve with hernia repair. He understood this and would like to proceed. Prasanna Shipman was educated on the indications, risks, and benefits of surgery. he understands theserisks include but are not limited to general risks such as DC, stroke, PE, DVT and even , and risks directly related to surgery such as hernia recurrence, chronic pain, infection, bleeding, and possibility of surrounding organ injury. We discussed what to expect after surgery including liftingrestrictions of no more than 20 lbs for 4 weeks. We also discussed the risk of urinary retention following surgery and potential need to go home with a martinez catheter. Will plan to proceed with laparoscopic bilateral inguinal hernia repair with mesh and primary open umbilical hernia repair. Will need to coordinate with patient's Magnetic Locater for labs and possible platelet transfusion on the day of surgery if platelets are <50,000. Thank you for the referral and for allowing me to participate in the care of Prasanna Shipman. Smitha Argueta MD General Surgery Minimally Invasive Surgery [phone] documented in this encounter Plan of Treatment Upcoming Encounters Date Type Department Care Team (Late st Contact Info) Description 01/28/2025 3:30 PM EDT Office [place] [address] Raza Glasgow MD [facility] [address] documented as of this encounter Visit Diagnoses Diagnosis Non-recurrent bilateral inguinal hernia without obstruction or gangrene Umbilical hernia without obstruction and without gangrene documented in this encounter Care Teams Air Boatswain Relationship Specialty Start Date End Date Marian Pierre MD [address] [place] [id number] PCP - General Family Medicine 08/15/22 documented as of this encounter
--- OUTSIDE RECORDS SUMMARY | 2024-10-27 11:25 | XMS_ITS | Encounter Summary ---
[place] [address] Care Team Providers Care Office Aide Name Role Phone Marian Pierre MD Primary Care Provider [phone] Encounter Details Date Type Department Care Team (Latest Contact Info) Description 09/06/2022 2:52 PM EDT - 09/06/2022 11:59 PM EDT Hospital Encounter [place]ematology [place] [address] Discharge Disposition: Home Social History Tobacco Use [...] cetirizine (ZYRTEC) 10 mg Tablet PRN 03/07/2019 Symbicort 160-4.5 mcg/actuation HFA Aerosol InhalerIndications:Moderat e persistent asthma, uncomplicated,Post-viral cough syndrome Inhale 2 puffs into the lungs 2 times daily. 1 each 3 09/01/2022 02/28/2023 Ventolin HFA 90 mcg/actuation HFA Aerosol InhalerIndications:Moderat e persistent asthma, uncomplicated Inhale 2 puffs into the lungs every 4 hours as needed for Wheezing. 1 each 3 09/01/2022 02/28/2023 pramipexole (MIRAPEX) 1 mg TabletIndications:pt states he is taking .5 mg 0.5 mg. Indications: pt states he is taking .5 mg 10/19/2015 07/04/2023 documented as of this encounter Plan of Treatment Upcoming Encounters Date Type Department Care Team (Late st Contact Info) Description 01/28/2025 3:30 PM EDT Office [place] [address] Raza Glasgow MD [facility] [place] [address] documented as of this encounter Procedures Procedure Name Priority Date/Time Associated Diagnosis Comments LDL CHOLESTEROL, DIRECT Routine 09/06/2022 2:58 PM EDT LIPID PANEL (REFLEX DIRECT LDL) Routine 09/06/2022 2:58 PM EDT documented in this encounter Results * LDL Cholesterol, Direct (09/06/2022 2:58 PM EDT) LDL Cholesterol, Direct 112 mg/dL [facility] Comment: Lowest Risk: <100 mg/dL Lower Risk: 100-129 mg/dL Borderline High Risk: 130-159 mg/dL High Risk: 160-189 mg/dL Very High Risk: >mn=545 mg/dL Blood Venous Draw / Unknown 09/06/2022 2:58 PM EDT 09/06/2022 3:10 PM EDT Narrative Resulting Agency Comment Spec In Lab Marian Pierre MD CHEMISTRY ORDERABLES [facility] [place] [address] * Lipid Panel (Reflex Direct LDL) (09/06/2022 2:58 PM EDT) Cholesterol, Total 191 mg/dL [facility] Comment: Lower Risk: <200 mg/dL Average Risk: 200-239 mg/dL Higher Risk: >wo=159 mg/dL Triglyceride 409 mg/dL [facility] Comment: Average Risk/Lower Risk: <150 mg/dL Borderline High Risk: 150-199 mg/dL High Risk: 200-499 mg/dL Very High Risk: >ra=206 mg/dL HDL Cholesterol 30 mg/dL [facility] Comment: Males: ?? Higher Risk: <40 mg/dL Females: ?? Higher Risk: <50 mg/dL LDL Cholesterol Not Calculated [facility] Comment: Calculated LDL value is not valid for triglycerides greater than 400 mg/dl. Lowest Risk: <100 mg/dL Lower Risk: 100-129 mg/dL Borderline High Risk: 130-159 mg/dL High Risk: 160-189 mg/dL Very High Risk: >hr=878 mg/dL Cholesterol/HDL Ratio 6.4 ratio [facility] Lipid Interpretation See Note [facility] Comment: Lipid management should be guided by a patient? s ASCVD risk, goals and preferences. ACC/AHA Guidelines recommend high intensity statin if clinical ASCVD or LDL greater than or equal to 190 mg/dL. http://[employer]com/LRL-RIO-Pocwwxcvz Adults aged 40-75 with LDL 70-189 mg/dL should have their 10 year ASCVD risk estimated with the ACC/AHA ASCVD risk sfdc developer http://tools.acc.org/AQLZM-Jvad-Qktvpkhbq/ Statin should be discussed if risk greater [...] critical component of ASCVD risk reduction. Blood Venous Draw / Unknown 09/06/2022 2:58 PM EDT 09/06/2022 3:10 PM EDT Narrative Resulting Agency Comment Spec In Lab Marian Pierre MD CHEMISTRY ORDERABLES [facility] [place] [address] documented in this encounter Visit Diagnoses Not on filedocumented in this encounter Care Teams Office Aide Relationship Specialty Start Date End Date Marian Pierre MD [address] [place] [id number] PCP - General Family Medicine 08/15/22 documented as of this encounter
--- OUTSIDE RECORDS SUMMARY | 2024-10-27 11:25 | XMS_ITS | Encounter Summary ---
[place] [address] Care Team Providers Care Transport Corps Officer Name Role Phone Marian Pierre MD Primary Care Provider Reason for Referral * Diagnostic Test (Routine) - Closed Specialty Diagnoses / Procedures Referred By Den t Referred To Contact Radiology Diagnoses Chest pressure Procedures CT Angiogram Coronary Arteries Kurt Tyler MD [facility] [place] [address] [facility] [place] [address] Referral ID Status Reason Start Date Expiration Date V isits Requested Visits Authorized [id number] Closed Specialty Service Requested 02/28/2023 08/30/2024 1 1 Reason for Visit * Consultation (Routine) - Closed Specialty Diagnoses / Procedures Referred By Contac t Referred To Contact Cardiology Diagnoses Chest pain, unspecified type Smitha Argueta MD [facility] [place] [address] [facility] [address] [place] [phone] Referral ID Status Reason Start Date Expiration Date V isits Requested Visits Authorized [id number] Closed Consult, Test & Treat 02/22/2023 02/22/2024 1 1 Encounter Details Date Type Department Care Team (Late st Contact Info) Description 02/28/2023 10:30 AM EDT Office Visit Cardiology at [address] [place] [address] Kurt Tyler MD [facility] [place] [address] Chest pressure; Pure hypertriglyceridemia; Class 1 obesity due to excess calories with body mass index (BMI) of 32.0 to 32.9 in adult, unspecified whether serious comorbidity present Social History Tobacco Use Types Packs/Day Years [...] Sign Reading Time Taken Comments Blood Pressure 131/84 02/28/2023 10:32 AM EDT Pulse 79 02/28/2023 10:32 AM EDT Temperature - - Respiratory Rate - - Oxygen Saturation 99% 02/28/2023 10:32 AM EDT Inhaled Oxygen Concentration - - Weight 97.5 kg (215 lb) 02/28/2023 10:32 AM EDT Height - - Body Mass Index 31.81 02/21/2023 10:48 AM EDT documented in this encounter Progress Notes * Kurt Tyler MD - 02/28/2023 10:30 AM EDT Images from the original note were not included. [facility] [place] [address] Subjective: Patient ID: Prasanna Shipman is a 52 y.o. male. Chest pain.[facility] testing . PER [facility] 02/23-NO PT FOUND Patient Active Problem List Diagnosis ??? Chest pressure ??? Pure hypertriglyceridemia ??? Right buttock pain ??? Spleen enlarged ??? Multiple lipomas ??? Obesity ??? Thrombocytopenia He has had some chest pressure with emotional stress or also physical exertion of more than 20 years, a little more noticeable lately. 02/20/2023 has cardiopulmonary stress test which was described as showing some precordial ST elevations. . His TG have been high, likes fried food, sugar and sweets. BP at home in the 120s, diastolic 80s. Denies HTN, DM. Mother (70 yo) is fine, father (73 yo) fine, but their siblings had CAD. Mom's father had NE age 51. Review of Systems 02/26/2023 10:46 AM CardioVascular Pre Appointment Symptom Review Angina (chest discomfort) Frequency: Occasional Shortness of breath: Occurs with minor activity during the day Palpitations (skipped beats): No Leg swelling: No Loss of consciousness: Yes Difficulty lying flat (because of breathing): No Chills: No Fatigue: Yes Fever: No Unintended weight change: No Nosebleeds: No Difficulty swallowing: No Visual disturbances: No Frequent cough: Yes Wheezing: Yes Snoring: No Abdominal pain: Yes Diarrhea: No Blood in bowel movement: No Black, tarry bowel movement: No Nausea/vomiting: No Heat/cold intolerance: No Problems urinating: No Joint pains: Yes Muscle pain: Yes Rash: No Weakness/numbness: No Speech problems: No Easy bruising/bleeding: Yes Depression: No Anxiety: No Poor sleep: No Family History Problem Relation Age of Onset ??? Depression Maternal Uncle ??? High Blood Pressure Father Social History Social History Narrative ??? Not on file Social History Tobacco Use ??? Smoking status: Never ??? Smokeless tobacco: Never Substance Use Topics ??? Alcohol use: Yes Types: 1 Glasses of wine per week Comment: once a month Outpatient Medications Marked as Taking for the 02/28/23 encounter (Office Visit) with Kurt Tyler MD Medication Sig Dispense Refill ??? mometasone (ELOCON) 0.1 % Solution ADD 1ML (0.5ML TWICE) OF MEDICATION TO 250ML OF SALINE IN SALINE IRRIGATION BOTTLE; IRRIGATE SINUSES WITH 120ML THROUGH EACH NOSTRIL TWICE DAILY ??? omeprazole (PriLOSEC) 40 mg Capsule, Delayed Release(E.C.) Take 40 mg by mouth daily. ??? acetaminophen (Tylenol) 500 mg Tablet Take 1,000 mg by mouth every 6 hours as needed for Pain. ??? multivitamin Tablet, Chewable Take by mouth. ??? cetirizine (ZYRTEC) 10 mg Tablet PRN ??? pramipexole (MIRAPEX) 1 mg Tablet 0.5 mg. Indications: pt states he is taking .5 mg Objective: BP 131/84 (BP Location (NBP): Left arm, Patient Position: Sitting, BP Cuff Sizes: Adult (25-34 cm)) Pulse 79 Wt 97.5 kg (215 lb) SpO2 99% BMI 31.81 kg/m?? Physical Exam Constitutional: Appearance: He is well-developed. HENT: Head: Normocephalic and atraumatic. Eyes: General: No scleral icterus. Neck: Vascular: No JVD. Cardiovascular: Rate and Rhythm: Normal rate and regular rhythm. Heart sounds: Normal heart sounds. No murmur heard. No friction rub. No gallop. Pulmonary: Effort: Pulmonary effort is normal. Breath sounds: Normal breath sounds. Abdominal: Palpations: Abdomen is soft. Comments: Waist circumference 45 Musculoskeletal: Right lower leg: No edema. Left lower leg: No edema. Skin: General: Skin is warm and dry. Findings: No rash. Neurological: Mental Status: He is alert. Psychiatric: Behavior: Behavior normal. Recent Results (from the past 72 hour(s)) EKG 12 Lead Result Value Ref Range Ventricular rate 81 BPM Atrial Rate 81 BPM P-R Interval 156 ms QRS Duration 84 ms Q-T Interval 372 ms QTC Calculated (Bezet) 432 ms Calculated P [place] 3 degrees Calculated R [place] -10 degrees Calculated T [place] 6 degrees INTERPRETATION Normal sinus rhythm with sinus arrhythmia Normal ECG No previous ECGs available Confirmed by MD Dewayne, Justin ([id number]) on 02/28/2023 12:50:15 PM Assessment and Plan: Chest pressure At this time I could not review the stress ECG which reportedly suggested some ST elevations. We discussed cardiac cath vs coronary CTA for now will go the latter since his symptoms have been chronicfor years and not really even though now somewhat more noticeable. Also he is concerned about his ITP. Pure hypertriglyceridemia Will repeat fasting lipids, add Lp(a), hsCRP. Obesity Have recommended Always Hungry by Dr Callaway. Total time spent on this visit today: 45 minutes. documented in this encounter Miscellaneous Notes * Assessment & Plan Note - Kurt Tyler MD - 02/28/2023 11:21 AM EDT Associated Problem(s): Obesity Have recommended Always Hungry by Dr Callaway. * Assessment & Plan Note - Kurt Tyler MD - 02/28/2023 11:18 AM EDT Associated Problem(s): Pure hypertriglyceridemia Will repeat fasting lipids, add Lp(a), hsCRP. * Assessment & Plan Note - Kurt Tyler MD - 02/28/2023 11:13 AM EDT Associated Problem(s): Chest pressure At this time I could not review the stress ECG which reportedly suggested some ST elevations. We discussed cardiac cath vs coronary CTA for now will go the latter since his symptoms have been chronicfor years and not really even though now somewhat more noticeable. Also he is concerned about his ITP. documented in this encounter Plan of Treatment Upcoming Encounters Date Type Department Care Team (Late st Contact Info) Description 01/28/2025 3:30 PM EDT Office Visit [place] [address] Raza Glasgow MD [facility] [place] [address] documented as of this encounter Results * CT Angiogram Coronary [...] who have questions please contact the health nurse behavioral health care that requested your imaging first. ? Electronically signed by: Kenn Ann MD, [facility] ??([phone]), at 03/30/2023 12:11 PM Narrative 03/30/2023 12:11 [...] patients who have questions please contactthe health nurse behavioral health care that requested your imaging first. Electronically signed by: Kenn Ann MD, [facility]([phone]), at 03/30/2023 12:11 PM Kurt Tyler MD IMG CT ORDERABLES * CRP, cardiac risk (HS CRP) (03/30/2023 7:59 AM EDT) Pathologist [facility] C-Reactive Protein High Sensitivity 3.5 mg/L [facility] Comment: For cardiac risk assessment, two [...] prevention. ??Circulation 2003; 107:363-369 CRP Cardiac Risk High Risk [facility] Blood 03/30/2023 7:59 AM EDT 03/30/2023 8:04 AM EDT Narrative Resulting Agency Comment Spec In Lab Kurt Tyler MD CHEMISTRY ORDERABLES [facility] [place] [address] * Lipoprotein A (03/30/2023 7:59 AM EDT) Pathologist [facility] Lipoprotein(A) (MAY) <7 <75 nmol/L [facility] Comment: ADDITIONAL INFORMATION Please notice that Lp(a) values are reported in molar units (nmol/L). ??These units are recommended by professional society guidelines and expert opinion statements. ??Measured results and risk thresholds are higher than those generated using mass units (mg/dL). Cardiovascular risk increases starting at 75 nmol/L. Lp(a) >=125 nmol/L is considered a risk enhancing factor by the [place] [employer]. This test has been modified from the bill poster installer's instructions. Its performance characteristics were determined by [facility] in a manner consistent with CLIA requirements. This test has not been cleared or approved by the U.S. Food and Drug Administration. Test Performed by: [address] [address] Digital Marketing Apprentice: Jay Acosta M.D. Ph.D.; CLIA# [id number] Blood 03/30/2023 7:59 AM EDT 03/30/2023 1:45 PM EDT Narrative Resulting Agency Comment Spec In Lab Kurt Tyler MD LAB SEND OUT ORDERAB LES Performing Organization Address City/State/[facility] Co de Phone Number [facility] [place] [address] * Lipid Panel (Reflex Direct LDL) (03/30/2023 7:59 AM EDT) [facility] Signature Cholesterol, Total 165 mg/dL [facility] Comment: Lower Risk: <200 mg/dL Average Risk: 200-239 mg/dL Higher Risk: >sb=755 mg/dL Triglyceride 211 mg/dL [facility] Comment: Average Risk/Lower Risk: <150 mg/dL Borderline High Risk: 150-199 mg/dL High Risk: 200-499 mg/dL Very High Risk: >ab=278 mg/dL HDL Cholesterol 33 mg/dL [facility] Comment: Males: ?? Higher Risk: <40 mg/dL Females: ?? Higher Risk: <50 mg/dL LDL Cholesterol 90 mg/dL [facility] Comment: Lowest Risk: <100 mg/dL Lower Risk: 100-129 mg/dL Borderline High Risk: 130-159 mg/dL High Risk: 160-189 mg/dL Very High Risk: >hh=041 mg/dL Cholesterol/HDL Ratio 5.0 ratio [facility] Lipid Interpretation See Note [facility] Comment: Lipid management should be guided by a patient? s ASCVD risk, goals and preferences. ACC/AHA Guidelines recommend high intensity statin if clinical ASCVD or LDL greater than or equal to 190 mg/dL. http://[employer].com/HCV-YVE-Zpjskzsxo Adults aged 40-75 with LDL 70-189 mg/dL should have their 10 year ASCVD risk estimated with the ACC/AHA ASCVD risk building construction estimator http://tools.acc.org/PDGHQ-Hglr-Wkypoyknj/ Statin should be discussed if risk greater [...] critical component of ASCVD risk reduction. Blood 03/30/2023 7:59 AM EDT 03/30/2023 8:04 AM EDT Narrative Resulting Agency Comment Spec In Lab Kurt Tyler MD CHEMISTRY ORDERABLES [facility] [place] [address] documented in this encounter Visit Diagnoses Diagnosis Chest pressure Other chest pain Pure hypertriglyceridemia Pure hyperglyceridemia Class 1 obesity due to excess calories with body mass index (BMI) of 32.0 to 32.9 in adult, unspecified whether serious comorbidity present Chest pressure Other chest pain documented in this encounter Care Teams Transport Corps Officer Relationship Specialty Start Date End Date Marian Pierre MD [address] [place] [address] PCP - General Family Medicine 08/15/22 documented as of this encounter
--- OUTSIDE RECORDS SUMMARY | 2024-10-27 11:25 | XMS_ITS | Encounter Summary ---
Author Organization [facility] [place] [address] Care Team Providers Care Commercial Credit Specialist Name Role Phone Marian Pierre MD Primary Care Provider [phone] Encounter Details Date Type Department Care Team (Latest Contact Info) Description 12/18/2022 Travel Social History Tobacco Use Types Packs/Day [...] PM EDT Office Visit [place] [address] Raza Glasgow MD [facility] [place] [address] documented as of this encounter Visit Diagnoses Not on filedocumented in this encounter Care Teams Commercial Credit Specialist Relationship Specialty Start Date End Date Marian Pierre MD [address] [place] [address] PCP - General Family Medicine 08/15/22 documented as of this encounter
--- OUTSIDE RECORDS SUMMARY | 2024-10-27 11:25 | XMS_ITS | Encounter Summary ---
Author Organization [facility] [place] [address] Care Team Providers Care Refresh Technician Name Role Phone Marian Pierre MD Primary Care Provider [phone] Encounter Details Date Type Department Care Team (Late Contact Info) Description 04/13/2023 Telephone [place] [address] Kacie Sna RN Social History Tobacco Use Types Packs/Day [...] Telephone Encounter - Kacie San RN - 04/13/2023 1:11 PM EDTSummary: Patient called to alert to insurance approval for medication. Patient called to alert to insurance approval for medication. Patient plans to call pharmacy. documented in this encounter Plan of Treatment Upcoming Encounters Date Type Department Care Team (Late Contact Info) Description 01/28/2025 3:30 PM EDT Office Visit [place] [address] Raza Glasgow MD [facility] [address] documented as of this encounter Visit Diagnoses Not on filedocumented in this encounter Care Teams Refresh Technician Relationship Specialty Start Date End Date Marian Pierre MD [address] [place] [address] PCP - General Family Medicine 08/15/22 documented as of this encounter
--- OUTSIDE RECORDS SUMMARY | 2024-10-27 11:25 | XMS_ITS | Encounter Summary ---
Author Organization [facility] [place] [address] Care Team Providers Care Back Digger Operator Name Role Phone Marian Pierre MD Primary Care Provider [phone] Encounter Details Date Type Department Care Team (Late Contact Info) Description 02/27/2023 Notes [place] [address] Taurus Velásquez MD [facility] [place] [address] Social History Tobacco Use Types Packs/Day Years [...] 3:30 PM EDT Office [place] [address] Raza Glasgow MD [facility] [place] [address] documented as of this encounter Visit Diagnoses Not on filedocumented in this encounter Care Teams Back Digger Operator Relationship Specialty Start Date End Date Marian Pierre MD [address] [place] [address] PCP - General Family Medicine 08/15/22 documented as of this encounter
--- OUTSIDE RECORDS SUMMARY | 2024-10-27 11:25 | XMS_ITS | Encounter Summary ---
Author Organization [facility] [place] [address] Care Team Providers Care Material Spreader Name Role Phone Marian Pierre MD Primary Care Provider [phone] Reason for Referral * Consultation (Routine) - Closed Specialty Diagnoses / Procedures Referred By Den tamayo Referred To Contact Otolaryngology Diagnoses Acute recurrent maxillary sinusitis Malika Draper APRN [address] [place] [address] [place] [address] Raza Glasgow MD [facility] [place] [address] Referral ID Status Reason Start Date Expiration Date V isits Requested Visits Authorized [id number] Closed Consult, Test & Treat 12/18/2022 12/18/2023 1 1 Encounter Details Date Type Department Care Team (Late st Contact Info) Description 12/18/2022 Transcribe Orders eDH Incoming Referrals [phone] Malika Draper HYDROGRAPHICAL TECHNICAL OFFICER [address] [place] [address] [place] [id number] Acute recurrent maxillary sinusitis Social History Tobacco Use Types Packs/Day Years [...] 3:30 PM EDT Office [place] [address] Raza Glasgow MD [facility] [place] [place] [address] Scheduled Referrals Name Type Priority Associated Diagnoses Orde r Schedule Referral to ENT Outpatient Referral Routine Acute recurrent maxillary sinusitis Ordered: 12/18/2022 documented as of this encounter Visit Diagnoses Diagnosis Acute recurrent maxillary sinusitis Acute maxillary sinusitis documented in this encounter Care Teams Material Spreader Relationship Specialty Start Date End Date Marian Pierre MD [address] [place] [address] PCP - General Family Medicine 08/15/22 documented as of this encounter
--- OUTSIDE RECORDS SUMMARY | 2024-10-27 11:25 | XMS_ITS | Encounter Summary ---
Author Organization [facility] Address [facility] [place] [address] Care Team Providers Care Patternmaker Bench Name Role Phone Marian Pierre MD Primary Care Provider [phone] Encounter Details Date Type Department Care Team (Late st Contact Info) Description 02/22/2023 Tele[place] [address] Lara Mccann Social History Tobacco Use Types [...] 3:30 PM EDT Office [place] [address] Raza Glasgow MD [facility] [place] [address] documented as of this encounter Visit Diagnoses Not on filedocumented in this encounter Care Teams Patternmaker Bench Relationship Specialty Start Date End Date Marian Pierre MD [address] [place] [address] [place] [address] PCP - General Family Medicine 08/15/22 documented as of this encounter
--- OUTSIDE RECORDS SUMMARY | 2024-10-27 11:25 | XMS_ITS | Encounter Summary ---
Author Organization [facility] Address [facility] [place] [address] Care Team Providers Care Welding Process Specialist Name Role Phone Marian Pierre MD Primary Care Provider [phone] Encounter Details Date Type Department Care Team (Late st Contact Info) Description 11/14/2022 Telephone [place] [address] Lara Mccann Social History Tobacco Use Types [...] 3:30 PM EDT Office [place] [address] Raza Glasgow MD [facility] [place] [address] documented as of this encounter Visit Diagnoses Not on filedocumented in this encounter Care Teams Welding Process Specialist Relationship Specialty Start Date End Date Marian Pierre MD [address] [place] [address] [place] [address] PCP - General Family Medicine 08/15/22 documented as of this encounter
--- OUTSIDE RECORDS SUMMARY | 2024-10-27 11:25 | XMS_ITS | Encounter Summary ---
Author Organization [facility] [place] [address] Care Team Providers Care Office Mail Clerk Name Role Phone Marian Pierre MD Primary Care Provider [phone] Reason for Referral * Consultation (Routine) - Closed Specialty Diagnoses / Procedures Referred By Contac t Referred To Contact Cardiology Diagnoses Chest pain, unspecified type Smitha Argueta MD [facility] [place] [address] [facility] Cardiology [address] [place] [phone] Referral ID Status Reason Start Date Expiration Date V isits Requested Visits Authorized [id number] Closed Consult, Test & Treat 02/22/2023 02/22/2024 1 1 Encounter Details Date Type Department Care Team (Late st Contact Info) Description 02/22/2023 Notes [place] [address] Smitha Argueta MD [facility] [place] [address] Social History Tobacco Use Types [...] as of this encounter Progress Notes * Smitha Argueta MD - 02/22/2023 5:47 PM EDT I called Mr. Shipman today regarding his surgery tomorrow. He has several issues going on currently. He is having vomiting and diarrhea, possibly food poisoning vs infection. Additionally, he had PFTs done this week and the preliminary results showed an abnormal cardiac response and recommended cardiac eval for ischemia. In light of all of these events, I think it is safest to post pone his surgery. I have put in a Cardiology referral and will follow up with him after he is evaluated. He is in agreement with this plan. Smitha Argueta MD documented in this encounter Plan of Treatment Upcoming Encounters Date Type Department Care Team (Late st Contact Info) Description 01/28/2025 3:30 PM EDT Office Visit [place] [address] Raza Glasgow MD [facility] [place] [address] Scheduled Referrals Name Type Priority Associated Diagnoses Orde r Schedule Referral to Cardiology Outpatient Referral Routine Chest pain, unspecified type Ordered: 02/22/2023 documented as of this encounter Visit Diagnoses Diagnosis Chest pain, unspecified type documented in this encounter Care Teams Office Mail Clerk Relationship Specialty Start Date End Date Marian Pierre MD [address] [place] [address] PCP - General Family Medicine 08/15/22 documented as of this encounter
--- OUTSIDE RECORDS SUMMARY | 2024-10-27 11:25 | XMS_ITS | Encounter Summary ---
[place] [address] Care Team Providers Care Gis Instructor Name Role Phone Marian Pierre MD Primary Care Provider [phone] Encounter Details Date Type Department Care Team (Late st Contact Info) Description 02/28/2023 Telephone [place] [address] Makenzie Solomon RN Social History Tobacco Use Types Packs/Day [...] encounter Miscellaneous Notes * Telephone Encounter - Makenzie Solomon RN - 02/28/2023 2:28 PM EDT RN called back and spoke to patient directly. Prasanna relays that while in his appointment with Dr. Tyler today, they were not able to find the EKG results from the patient's EKG from [facility] performed on 02/23/2023. Prasanna has requested that these be located and forwarded to Dr. Tyler. This was located in media scan from [facility] PFT scan dated 02/20/2023, from pages 33 through [address] Tyler for update. * Telephone Encounter - Makenzie Solomon RN - 02/28/2023 2:26 PM EDT Copied from [facility] #[id number]. Topic: Specialty Dept CRMs - Generic Call >> Feb 28, 2023 1:21 PM Tricia Varma wrote: Specialist: Dr Velásquez Relationship (if other than patient-full name): none Reason for Call: Pt saw Dr Shannon today and he wants to see all the supporting documents for the PFT, EKG. could not access those reports this morning. Please call to discuss documented in this encounter Plan of Treatment Upcoming Encounters Date Type Department Care Team (Late st Contact Info) Description 01/28/2025 3:30 PM EDT Office [place] [address] aRza Glasgow MD [facility] [place] [address] documented as of this encounter Visit Diagnoses Not on filedocumented in this encounter Care Teams Gis Instructor Relationship Specialty Start Date End Date Marian Pierre MD [address] [place] [address] PCP - General Family Medicine 08/15/22 documented as of this encounter
--- OUTSIDE RECORDS SUMMARY | 2024-10-27 11:25 | XMS_ITS | Encounter Summary ---
Author Organization [facility] [place] [address] Care Team Providers Care Sewer Repairer Name Role Phone Marian Pierre MD Primary Care Provider Encounter Details Date Type Department Care Team (Latest Contact Info) Description 02/26/2023 Travel Social History Tobacco Use Types Packs/Day [...] 3:30 PM EDT Office [place] [address] Raza Glasgow MD [facility] [place] [address] documented as of this encounter Visit Diagnoses Not on filedocumented in this encounter Care Teams Sewer Repairer Relationship Specialty Start Date End Date Marian Pierre MD [address] [place] [phone] PCP - General Family Medicine 08/15/22 documented as of this encounter
--- OUTSIDE RECORDS SUMMARY | 2024-10-27 11:25 | XMS_ITS | Encounter Summary ---
Author Organization [facility] [place] [address] Care Team Providers Care Regional Wildlife Agent Name Role Phone Marian Pierre MD Primary Care Provider Encounter Details Date Type Department Care Team (Latest Contact Info) Description 09/06/2022 Travel Social History Tobacco Use Types Packs/Day [...] 3:30 PM EDT Office [place] [address] Raza Glasgow MD [facility] [place] [address] documented as of this encounter Visit Diagnoses Not on filedocumented in this encounter Care Teams Regional Wildlife Agent Relationship Specialty Start Date End Date Marian Pierre MD [address] [place] [id number] PCP - General Family Medicine 08/15/22 documented as of this encounter
--- OUTSIDE RECORDS SUMMARY | 2024-10-27 11:25 | XMS_ITS | Encounter Summary ---
[facility] [place] [address] Care Team Providers Care Diesel Mechanic Construction Name Role Phone Marian Pierre MD Primary Care Provider [phone] Encounter Details Date Type Department Care Team (Late st Contact Info) Description 12/18/2022 Orders Only [place] [phone] Smitha Argueta MD [facility] [place] [address] Chronic ITP (idiopathic thrombocytopenia) Social History Tobacco Use Types Packs/Day Years [...] 3:30 PM EDT Office Visit [place] [phone] Raza Glasgow MD [facility] [place] [address] documented as of this encounter Visit Diagnoses Diagnosis Chronic ITP (idiopathic thrombocytopenia) Immune thrombocytopenic purpura documented in this encounter Care Teams Diesel Mechanic Construction Relationship Specialty Start Date End Date Marian Pierre MD [address] [address] PCP - General Family Medicine 08/15/22 documented as of this encounter
--- OUTSIDE RECORDS SUMMARY | 2024-10-27 11:25 | XMS_ITS | Encounter Summary ---
Author Organization [facility] [place] [address] Care Team Providers Care Senior Application Programmer Name Role Phone Marian Pierre MD Primary Care Provider [phone] Reason for Visit * Reason Comments Follow-up Encounter Details Date Type Department Care Team (Latest Contact Info) Description 02/21/2023 11:00 AM EDT Office Visit [place] [address] Maikel Rebolledo MD [facility] [address] [place] [address] Norma Garrido APRN [facility] [place] [address] Cami David DO Idiopathic thrombocytopenic purpura; Stage 1 chronic kidney disease Social History Tobacco Use Types Packs/Day [...] Sign Reading Time Taken Comments Blood Pressure 141/95 02/21/2023 10:48 AM EDT Pulse 89 02/21/2023 10:48 AM EDT Temperature 36.3 ??C (97.3 ??F) 02/21/2023 10:48 AM E DT Respiratory Rate 19 02/21/2023 10:48 AM EDT Oxygen Saturation 97% 02/21/2023 10:48 AM EDT Inhaled Oxygen Concentration - - Weight 98.7 kg (217 lb 9.5 oz) 02/21/2023 10:48 AM EDT Height 175.1 cm (5' 8.94) 02/21/2023 10:48 AM E DT Body Mass Index 32.19 02/21/2023 10:48 AM EDT documented in this encounter Progress Notes * Cami David, DO - 02/21/2023 11:00 AM EDT Images from the original note [...] 12/2012 and 12/2014. He didn't have CBC prior to these spine surgeries and these surgeries were uncomplicated with no excessive bleeding. 2018: Ct done for other reasons - enlarged spleen June 2020 in [place] - [facility] reports that he had his right hip replaced December 2019:-The patient was diagnosed with Covid. He was not vaccinated at the time. In July 2021, he continues to have signs and symptoms of long- haul syndrome including memory loss and fatigue. April 2022: Had COVID x 2 despite vaccinations. Plates at 40K - slow downward trend INTERIM HISTORY: Mr Shipman presents to clinic today for follow-up of his ITP. He is planned for hernia for Sunday. This is planned here with Dr. Argueta. She would like to have He still has occasional red blood in the stool. He has been having breathing difficulty since July and was seen in [facility] and has undergone a PFT and EKG with Dr. Taurus Velásquez with pulm. He has had some point tenderness to his chest that is occasional and stabby. He has not been active to know if this is related to dyspnea. He has had some epistaxis with mometasone but this is rare. He has some bruising but this is his baseline. He intentionally lost 15 pounds. But he feels that he has put half of that back on. He has not beento the gym in 4 wks because of life issues. Review of systems: Constitutional: as above Eyes: negative Respiratory: Negative. Cardiovascular: Negative. Gastrointestinal: GERD ---> chronic. Genitourinary: Negative. Skin: Negative. Neurological: as above Hematological: as above Psychiatric/Behavioral: Negative. Musculoskeletal: Negative. Past Medical History: - Lipomas - Restless leg syndrome - lasik surgery for vision correction - Knee surgery for torn meniscus and back surgeries : in 2012, 12/2014; - Back surgery Allergies: Pollen, micronized Medications: Current Outpatient Medications on File Prior to Visit Medication Sig Dispense Refill ??? mometasone (ELOCON) [...] states he is taking .5 mg ??? predniSONE (Deltasone) 10 mg Tablet Take 10 mg by mouth daily. Prednisone taper ??? Symbicort 160-4.5 mcg/actuation HFA Aerosol Inhaler Inhale 2 puffs into the lungs 2 times daily. 1 each 3 ??? Ventolin HFA 90 mcg/actuation HFA Aerosol Inhaler Inhale 2 puffs into the lungs every 4 hours as needed for Wheezing. 1 each 3 No current facility-administered medications on file prior to visit. 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 Family History: - Mother: was tested negative for PLT antigen 1; never had low plt count; - Father: htn, dlp - Siblings: brother and sister: both healthy; His sister also had low plt count at and was transfused; no issues now. Brother is a financial analysis advisor at [employer]. 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 Physical Exam: Blood pressure (!) 141/95, pulse 89, temperature 36.3 ??C (97.3 ??F), temperature source Temporal, resp. rate 19, height 175.1 cm (5' 8.94), weight 98.7 kg (217 lb 9.5 oz), SpO2 97 %. GENERAL: Prasanna looks well today HEENT: Oropharynx clear without lesions or thrush. No petechiae NECK: Supple and without adenopathy or thyroid enlargement. CARDIAC: Regular rate and rhythm without S3, S4 or murmurs. LUNGS: Clear to auscultation bilaterally. No rales, rhonchi or wheezing. ABDOMEN: Mild discomfort in the left upper and lower quadrant of the abdomen without any findings of splenomegaly. He did have fullness in all quadrants [...] (non-fasting) Result Value Ref Range Glucose Lvl 92 65 - 199 mg/dL BUN 21 (H) 10 - 20 mg/dL Creatinine 1.22 0.80 - 1.50 mg/dL Sodium 139 135 - 145 mmol/L Potassium 4.4 3.5 - 5.0 mmol/L Chloride 102 98 - 107 mmol/L CO2 25 22 - 31 mmol/L Anion Gap 12 5 - 15 mmol/L Calcium 9.4 8.5 - 10.5 mg/dL Total Protein 7.3 6.1 - 8.0 g/dL Albumin 4.6 3.2 - 5.2 g/dL AST 17 0 - 39 unit/L ALT 39 0 - 55 unit/L Alk Phos 88 40 - 130 unit/L Total Bilirubin 0.4 0.2 - 1.3 mg/dL Estimated GFR 72 >=60 mL/min/1.73 m?? Antibody screen Result Value Ref Range Expires at 2359 on: 02/24/2023 ABORH Recheck Status Result Value Ref Range ABORH Type Recheck Completed Assessment/Plan: 52 y.o. y/o M with thrombocytopenia. His work up did not reveal an etiology. We first saw Prasanna in October 2015. Since that time, his platelets have gradually decreased over the ensuing years. He has denied any problems with bleeding or bruising in the past. In Jun 2020, He had right total hip replacement without any evidence of bleeding or complications postoperatively. #Chronic ITP: Stable without treatment. Some mild intermittent bleeding, epistaxis, bruising. Hgb stable. Surgery plans to perform a hernia repair Sunday if plt >50. If less then they will transfuse. Pt understands there is a higher risk of surgical intervention with his thrombocytopenia. No plan for intervention at this time. CBC from this AM clotted. We will repeat this afternoon. We will forward this note to Dr. Argueta as well as send an inbasket and email to her. #Shortness of breath: Extensive work up with [facility]. Vel[facility]quez ([facility] Will continue to follow. We let Dr. Argueta know this ahead of surgery on Sunday. #Hypertension Routine follow-up and healthcare maintenance since his pressure is elevated today. He has been following and recording AM Bps. Continue with routine exercise and weight control Plan: - Continue to monitor for any bleeding, bruising or petechiae. - RTC in 6 mo for follow up. - Continue to follow with pul for work up of his SOB. I informed Prasanna Shipman that he can call back with any questions. Patient was seen and discussed with Dr. Rebolledo. Cami David, DO Fellow, Hematology and Medical Oncology [facility] Pager: [phone], 02/21/23, 11:26 AM * Maikel Rebolledo MD - 02/21/2023 11:00 AM EDT Hematology/BMT Staff Addendum: I have seen and examined the patient, reviewed all pertinent clinical, laboratory and radiographic data and discussed the case in depth on rounds with Dr David today. I agree with the findings, assessment and plan as outlined in today's note, with any changes or add'l comments included below. Prasanna has Hernia surgery planned for this SunFebruary 23, 2023. He is here today to have his platelets checked and to outline a plan for surgery Unfortunately, the patient's CBC clotted so we will need to repeat Moo the CBC. Once this result is back, we will notify Dr. Vega of surgery and if it is below 50,000, we will notify blood bank and the potential need for platelets on Sunday the day of surgery. In addition, we will notify Dr. Vega of [place] ongoing pulmonary work-up since she will need to review that to determine if he is a surgical candidate. The patient notes that he is having sinus surgery on April [address] Glasgow would like platelets above 100,000. Given his [place] history of thrombocytopenia of 40-50,000 dating back to 2014, even with the blood transfusion it may not be possible to reach the goal of 100,000. Once again, I would recommend a CBC a few days before the surgery planned for April 10. Depending upon the level, once again blood bank will need to be notified to have platelets on hold for the surgery on April 06. To be certain that Dr. Vega is aware of, his ongoing pulmonary issues,, is going to stop up today to Dr. Reed;s office and leave a note. In reviewed all the above with Kwadwo and answered all questions. Maikel Rebolledo MD pharmacist's aide Director - Blood and Marrow Transplant Program ADDENDUM We have tried paging Dr. Argueta twice without a response. He was sent to the secure chat as well asan email to notify her, and his platelets are 58,000. He should be fine for surgery but I have to defer to her. I also want to let Dr. Argueta know that he is undergoing a pulmonary work-up so she needs to be aware of this and be certain he is at surgical candidate. Since we could not contact Dr. Argueta, we asked Prasanna to stop at the office and let her office know. Maikel Rebolledo MD pharmacist's aide Director - Blood and Marrow Transplant Program documented in this encounter Plan of Treatment Upcoming Encounters Date Type Department Care Team (Late st Contact Info) Description 01/28/2025 3:30 PM EDT Office [place] [address] Raza Glasgow MD [facility] [place] [address] documented as of this encounter Results * (ABNORMAL) Comprehensive metabolic panel (non-fasting) (02/21/2023 9:53 AM EDT) [facility] Glucose 92 65 - 199 mg/dL [facility] Comment:Diabetes: >=200 mg/d L plus symptoms Blood Urea Nitrogen 21(H) 10 - 20 mg/dL [facility] Creatinine 1.22 0.80 - 1.50 mg/dL [facility] Sodium 139 135 - 145 mmol/L [facility] Potassium 4.4 3.5 - 5.0 mmol/L [facility] Comment: Please note: ??Patients with WBC >100,000 may have falsely elevated Potassium levels. ??For accurate Potassium quantification in these patients send serum separator tube (gold top) for subsequent determinations. ??Contact the Clinical Chemistry Laboratory if there are any questions. Chloride 102 98 - 107 mmol/L [facility] Carbon Dioxide 25 22 - 31 mmol/L [facility] Anion Gap 12 5 - 15 mmol/L [facility] Calcium 9.4 8.5 - 10.5 mg/dL [facility] Protein, Total 7.3 6.1 - 8.0 g/dL [facility] Albumin 4.6 3.2 - 5.2 g/dL [facility] Aspartate Aminotransferase 17 0 - 39 unit/L [facility] Alanine Aminotransferase 39 0 - 55 unit/L [facility] Alkaline Phosphatase 88 40 - 130 unit/L [facility] Bilirubin, Total 0.4 0.2 - 1.3 mg/dL [facility] Est Glomerular Filtration Rate 72 >=60 mL/min/1. 73 m?? [facility] Comment: This patient's estimated [...] and symptoms in addition to eGFR. Blood 02/21/2023 9:53 AM EDT 02/21/2023 10:14 AM EDT Narrative Resulting Agency Comment Spec In Lab Norma Garrido PMO LEAD CHEMISTRY ORDERABL ES [facility] [place] [address] documented in this encounter Visit Diagnoses Diagnosis Idiopathic thrombocytopenic purpura Immune thrombocytopenic purpura Stage 1 chronic kidney disease documented in this encounter Care Teams Senior Application Programmer Relationship Specialty Start Date End Date Marian Pierre MD [address] [place] [address] PCP - General Family Medicine 08/15/22 documented as of this encounter
--- OUTSIDE RECORDS SUMMARY | 2024-10-27 11:25 | XMS_ITS | Encounter Summary ---
Author Organization [facility] [place] [address] Care Team Providers Care Animated Cartoons Painter Name Role Phone Marian Pierre MD Primary Care Provider [phone] Encounter Details Date Type Department Care Team (Latest Contact Info) Description 09/06/2022 2:51 PM EDT Hospital Encounter [place]ematology [place] [phone] Idiopathic thrombocytopenic purpura; Stage 1 chronic kidney disease; Thrombocytopenia Discharge Disposition: Home Social History Tobacco Use [...] 3:30 PM EDT Office [place] [address] Raza Glasgow MD [facility] [place] [address] documented as of this encounter Procedures Procedure Name Priority Date/Time Associated Diagnosis Comments HEMOGRAM STAT 09/06/2022 2:58 PM EDT Idiopathic thrombocytopenic purpura Stage 1 chronic kidney disease Thrombocytopenia DIFFERENTIAL, AUTOMATED STAT 09/06/2022 2:58 PM EDT Idiopathic thrombocytopenic purpura Stage 1 chronic kidney disease Thrombocytopenia HC CBC,PLT & AUTO DIFF STAT 09/06/2022 2:58 PM EDT Idiopathic thrombocytopenic purpura Stage 1 chronic kidney disease Thrombocytopenia HC VENIPUNCTURE STAT 09/06/2022 2:58 PM EDT Idiopathic thrombocytopenic purpura Stage 1 chronic kidney disease Thrombocytopenia documented in this encounter Results * Differential, Automated (09/06/2022 2:58 PM EDT) Neutrophil % 54.9 % [facility] Neutrophil Absolute 3.03 1.70 - 6.10 x10(3)/[facility] Lymph % 33.6 % [facility] Lymphocytes Abs 1.9 0.9 - 3.2 x10(3)/[facility] Monocyte % 8.5 % [facility] Monocyte Abs 0.5 0.3 - 0.9 x10(3)/[facility] Eos % 1.8 % [facility] Eosinophils Abs 0.1 0.0 - 0.4 x10(3)/[facility] Basophil % 0.5 % [facility] Baso Absolute 0.0 0.0 - 0.1 x10(3)/[facility] Immature Gran % 0.70 % [facility] Comment: Immature granulocytes(IG's)percentage and absolute count will include metamyelocytes, myelocytes, and promyelocytes. Blood smears from CBCs yielding IG's will be scanned manually for concordance. If this scan disagrees with the automated IG or if promyelocytes are noted, a manual differential will be performed. Immature Gran Absolute 0.04 0.00 - 0.04 x10(3)/[facility] Blood 09/06/2022 2:58 PM EDT 09/06/2022 3:10 PM EDT Narrative Resulting Agency Comment Spec In Lab Maikel Rebolledo MD HEMATOLOGY ORDERABLE S [facility] [place] [address] * (ABNORMAL) Hemogram (09/06/2022 2:58 PM EDT) White Blood Cell 5.5 4.0 - 9.5 x10(3)/[facility] Red Blood Cell 5.46 4.58 - 5.54 x10(6)/[facility] Hemoglobin 15.9 13.7 - 16.5 g/dL [facility] Hematocrit 45.2 40.5 - 48.5 % [facility] Mean Cell Volume 82.8(L) 82.9 - 93.[address] [facility] Mean Cell Hemoglobin 29.1 27.5 - 32.[address] [facility] Mean Cell Hemoglobin Concentration 35.2 32.0 - 35.7 g/dL [facility] Platelet 49(L) 145 - 357 x10(3)/mc L [facility] RDW Standard Deviation 38.6 36.0 - 45.[address] [facility] RDW coefficient of variation 13.0 11.4 - 13.8 % [facility] Mean Platelet Volume 12.5 7.6 - 12.[address] [facility] NRBC% auto 0.0 % [facility] NRBC Absolute 0.000 0.000 - 0.000 x10(3)/mc L [facility] Blood 09/06/2022 2:58 PM EDT 09/06/2022 3:10 PM EDT Narrative Resulting Agency Comment Spec In Lab Maikel Rebolledo MD HEMATOLOGY ORDERABLE S [facility] [place] [address] * Comprehensive metabolic panel (non-fasting) (09/06/2022 2:58 PM EDT) Glucose 99 65 - 199 mg/dL [facility] Comment:Diabetes: >=200 mg/d L plus symptoms Blood Urea Nitrogen 18 10 - 20 mg/dL [facility] Creatinine 1.41 0.80 - 1.50 mg/dL [facility] Sodium 141 135 - 145 mmol/L [facility] Potassium 4.1 3.5 - 5.0 mmol/L [facility] Comment: Please note: ??Patients with WBC >100,000 may have falsely elevated Potassium levels. ??For accurate Potassium quantification in these patients send serum separator tube (gold top) for subsequent determinations. ??Contact the Clinical Chemistry Laboratory if there are any questions. Chloride 104 98 - 107 mmol/L [facility] Carbon Dioxide 26 22 - 31 mmol/L [facility] Anion Gap 11 5 - 15 mmol/L [facility] Calcium 9.3 8.5 - 10.5 mg/dL [facility] Protein, Total 7.3 6.1 - 8.0 g/dL [facility] Albumin 4.4 3.2 - 5.2 g/dL [facility] Aspartate Aminotransferase 23 0 - 39 unit/L [facility] Alanine Aminotransferase 46 0 - 55 unit/L [facility] Alkaline Phosphatase 84 40 - 130 unit/L [facility] Bilirubin, Total 0.4 0.2 - 1.3 mg/dL [facility] Est Glomerular Filtration Rate 61 >=60 mL/min/1. 73 m?? [facility] Comment: This patient's estimated GFR [...] and symptoms in addition to eGFR. Blood 09/06/2022 2:58 PM EDT 09/06/2022 3:10 PM EDT Narrative Resulting Agency Comment Spec In Lab Maikel Rebolledo MD CHEMISTRY ORDERABLES [facility] [place] [address] documented in this encounter Visit Diagnoses Diagnosis Idiopathic thrombocytopenic purpura Immune thrombocytopenic purpura Stage 1 chronic kidney disease Thrombocytopenia Thrombocytopenia, unspecified documented in this encounter Care Teams Animated Cartoons Painter Relationship Specialty Start Date End Date Marian Pierre MD [address] [place] [address] PCP - General Family Medicine 08/15/22 documented as of this encounter
--- OUTSIDE RECORDS SUMMARY | 2024-10-27 11:25 | XMS_ITS | Encounter Summary ---
[place] [address] Care Team Providers Care Rattle Leak And Squeak Repairer Name Role Phone Marian Pierre MD Primary Care Provider [phone] Encounter Details Date Type Department Care Team (Latest Contact Info) Description 02/20/2023 7:05 AM EDT - 02/20/2023 11:59 PM EDT Hospital [place] [id number] SOB (shortness of breath) Discharge Disposition: Home Social History Tobacco Use [...] cetirizine (ZYRTEC) 10 mg Tablet PRN 03/07/2019 predniSONE (Deltasone) 10 mg Tablet Take 10 mg by mouth daily. Prednisone taper 02/28/2023 Symbicort 160-4.5 mcg/actuation HFA Aerosol InhalerIndications:Moder ate persistent asthma, uncomplicated,Post-viral cough syndrome Inhale 2 puffs into the lungs 2 times daily. 1 each 3 09/01/2022 02/28/2023 Ventolin HFA 90 mcg/actuation HFA Aerosol InhalerIndications:Moder ate persistent asthma, uncomplicated Inhale 2 puffs into the lungs every 4 hours as needed for Wheezing. 1 each 3 09/01/2022 02/28/2023 pramipexole (MIRAPEX) 1 mg TabletIndications:pt states he is taking .5 mg 0.5 mg. Indications: pt states he is taking .5 mg 10/19/2015 07/04/2023 documented as of this encounter Procedure Notes * Saurabh Dejesus MD - 02/20/2023 11:59 PM EDTAssociated Order(s): PULMONARY FUNCTION TEST Images from the original note were not included. CARDIOPULMONARY EXERCISE TEST REPORT Date of Testin02/20/23 Patient Name: Prasanna Shipman Height: 69.3 Weight: 218 lbs Requesting Provider: No att. providers found Indication for Testing: Shortness of breath Baseline Data: ?? Spirometry was mildly abnormal: FVC suggests possible [...] beats/min, or 102% of predicted maximum value ?? Blood pressure [...] M.D. Pulmonary and Critical Care Fellow Pager: [phone] Report amended 02/28/2023 to correct error in description of exercise ST-changes in body of originalreport. documented in this encounter Miscellaneous Notes * Addendum Note - Saurabh Dejesus MD - 02/20/2023 11:59 PM EDTEncounter addended by: Saurabh Dejesus MD on: 02/28/2023 2:28 PM Actions taken: Clinical Note Signed documented in this encounter Plan of Treatment Upcoming Encounters Date Type Department Care Team (Late st Contact Info) Description 01/28/2025 3:30 PM EDT Office [place] [address] Raza Glasgow MD [facility] [place] [address] documented as of this encounter Procedures Procedure Name Priority Date/Time Associated Diagnosis Comments COMMON PULMONARY FUNCTION TEST Routine 02/20/2023 11:59 PM EDT SOB (shortness of breath) documented in this encounter Results * Pulmonary Function Testing [...] M.D. Pulmonary and Critical Care Fellow Pager: [phone] Report amended 02/28/2023 to correct error in description of exercise ST-changes in body of original report. Raj Azar MD PFT ORDERABLES COMPAS PFT documented in this encounter Visit Diagnoses Diagnosis SOB (shortness of breath) Shortness of breath documented in this encounter Care Teams Rattle Leak And Squeak Repairer Relationship Specialty Start Date End Date Marian Pierre MD [address] [place] [id number] PCP - General Family Medicine 08/15/22 documented as of this encounter
--- OUTSIDE RECORDS SUMMARY | 2024-10-27 11:25 | XMS_ITS | Encounter Summary ---
Author Organization [facility] Address [facility] [place] [address] Care Team Providers Care Wrapper Caser Name Role Phone Marian Pierre MD Primary Care Provider [phone] Encounter Details Date Type Department Care Team (Latest Contact Info) Description 12/19/2022 2:50 PM EST Laboratory Appointment Lab [address] [place] [phone] Chronic ITP (idiopathic thrombocytopenia) Social History Tobacco [...] 3:30 PM EDT Office Visit [place] [phone] Raza Glasgow MD [facility] [place] [address] documented as of this encounter Visit Diagnoses Diagnosis Chronic ITP (idiopathic thrombocytopenia) Immune thrombocytopenic purpura documented in this encounter Care Teams Wrapper Caser Relationship Specialty Start Date End Date Marian Pierre MD [address] [place] [address] PCP - General Family Medicine 08/15/22 documented as of this encounter
--- OUTSIDE RECORDS SUMMARY | 2024-10-27 11:25 | XMS_ITS | Encounter Summary ---
[place] [address] Care Team Providers Care Behavior Specialist Name Role Phone Marian Pierre MD Primary Care Provider Reason for Referral * Consultation (Routine) - Closed Specialty Diagnoses / Procedures Referred By Contac t Referred To Contact General Surgery Diagnoses Bilateral inguinal hernia without obstruction or gangrene, recurrence not specified Reginald Hansen MD [address] [place] [address] [facility] Gen Surgery [address] [place] [address] Referral ID Status Reason Start Date Expiration Date V isits Requested Visits Authorized [id number] Closed Consult, Test & Treat PCP Updated and/or Approved 11/30/2022 11/30/2023 6 6 Encounter Details Date Type Department Care Team (Latest Contact Info) Description 11/30/2022 Transcribe Orders [place] [address] Reginald Hansen MD [address] [place] [address] Bilateral inguinal hernia without obstruction or gangrene, recurrence not specified Social History Tobacco Use Types Packs/Day Years [...] 3:30 PM EDT Office [place] [address] Raza Glasgow MD [facility] [place] [address] Scheduled Referrals Name Type Priority Associated Diagnoses Orde r Schedule Referral to General Surgery Outpatient Referral Routine Bilateral inguinal hernia without obstruction or gangrene, recurrence not specified Ordered: 11/30/2022 documented as of this encounter Visit Diagnoses Diagnosis Bilateral inguinal hernia without obstruction or gangrene, recurrence not specified documented in this encounter Care Teams Behavior Specialist Relationship Specialty Start Date End Date Marian Pierre MD [address] [place] [address] PCP - General Family Medicine 08/15/22 documented as of this encounter
--- OUTSIDE RECORDS SUMMARY | 2024-10-27 11:25 | XMS_ITS | Encounter Summary ---
[place] [address] Care Team Providers Care Manager Solar Name Role Phone Marian Pierre MD Primary Care Provider [phone] Encounter Details Date Type Department Care Team (Latest Contact Info) Description 02/21/2023 9:27 AM EDT - 02/21/2023 11:52 AM EDT Hospital Encounter [place]ology [place] [address] Idiopathic thrombocytopenic purpura; Stage 1 chronic kidney disease; Chronic ITP (idiopathic thrombocytopenia) Discharge Disposition: Home Social History Tobacco Use [...] 3:30 PM EDT Office [place] [address] Raza Glasgow MD [facility] [place] [address] documented as of this encounter Procedures Procedure Name Priority Date/Time Associated Diagnosis Comments HEMOGRAM Routine 02/21/2023 12:09 PM EDT Idiopathic thrombocytopenic purpura DIFFERENTIAL, AUTOMATED Routine 02/21/2023 12:09 PM EDT Idiopathic thrombocytopenic purpura HC CBC,PLT & AUTO DIFF Routine 02/21/2023 12:09 PM EDT Idiopathic thrombocytopenic purpura TYPE AND SCREEN VALIDITY Routine 02/21/2023 9:53 AM EDT ABORH RECHECK STATUS Routine 02/21/2023 9:53 AM EDT ABO/RH TYPING Routine 02/21/2023 9:53 AM EDT Chronic ITP (idiopathic thrombocytopenia) ANTIBODY SCREEN Routine 02/21/2023 9:53 AM EDT Chronic ITP (idiopathic thrombocytopenia) TYPE AND SCREEN ([facility]/CGP/ELIN) Routine 02/21/2023 9:53 AM EDT Chronic ITP (idiopathic thrombocytopenia) COMPREHENSIVE METABOLIC PANEL STAT 02/21/2023 9:53 AM EDT Idiopathic thrombocytopenic purpura Stage 1 chronic kidney disease documented in this encounter Results * Differential, Automated (02/21/2023 12:09 PM EDT) Neutrophil % 54.4 % [facility] Neutrophil Absolute 3.23 1.70 - 6.10 x10(3)/[facility] Lymph % 36.0 % [facility] Lymphocytes Abs 2.1 0.9 - 3.2 x10(3)/[facility] Monocyte % 6.4 % [facility] Monocyte Abs 0.4 0.3 - 0.9 x10(3)/[facility] Eos % 1.9 % [facility] Eosinophils Abs 0.1 0.0 - 0.4 x10(3)/[facility] Basophil % 0.8 % [facility] Baso Absolute 0.0 0.0 - 0.1 x10(3)/[facility] Immature Gran % 0.50 % [facility] Comment: Immature granulocytes(IG's)percentage and absolute count will include metamyelocytes, myelocytes, and promyelocytes. Blood smears from CBCs yielding IG's will be scanned manually for concordance. If this scan disagrees with the automated IG or if promyelocytes are noted, a manual differential will be performed. Immature Gran Absolute 0.03 0.00 - 0.04 x10(3)/[facility] Blood 02/21/2023 12:0 9 PM EDT 02/21/2023 12:18 PM EDT Narrative Resulting Agency Comment Spec In Lab Travonr Frankie PIERRE HEMATOLOGY ORDERABLE S [facility] [place] [address] * (ABNORMAL) Hemogram (02/21/2023 12:09 PM EDT) White Blood Cell 5.9 4.0 - 9.5 x10(3)/mc L [facility] Red Blood Cell 5.85(H) 4.58 - 5.54 x10(6)/mc L [facility] Hemoglobin 16.7(H) 13.7 - 16.5 g/dL [facility] Hematocrit 47.0 40.5 - 48.5 % [facility] Mean Cell Volume 80.3(L) 82.9 - 93.1 fL [facility] Mean Cell Hemoglobin 28.5 27.5 - 32.1 pg [facility] Mean Cell Hemoglobin Concentration 35.5 32.0 - 35.7 g/dL [facility] Platelet 58(L) 145 - 357 x10(3)/mc L [facility] RDW Standard Deviation 37.0 36.0 - 45.0 fL [facility] RDW coefficient of variation 12.8 11.4 - 13.8 % [facility] Mean Platelet Volume 13.0(H) 7.6 - 12.9 fL [facility] NRBC% auto 0.0 % [facility] NRBC Absolute 0.000 0.000 - 0.000 x10(3)/ L [facility] Blood 02/21/2023 12:0 9 PM EDT 02/21/2023 12:18 PM EDT Narrative Resulting Agency Comment Spec In Lab Cami David DO HEMATOLOGY ORDERABLE S Performing Organization Address City/[facility]/ZIP Co de Phone Number [facility] [place] [address] * Type and Screen Validity (02/21/2023 9:53 AM EDT) T&S only valid at Count includes the [facility] Comment:This Type and Screen result is only valid at the [facility] Blood 02/21/2023 9:53 AM EDT 02/21/2023 9:57 AM EDT Narrative Resulting Agency Comment Spec In Lab Smitha Argueta MD BLOOD BANK LAB ORDER JESUS [facility] [place] [address] * ABORH Recheck Status (02/21/2023 9:53 AM EDT) ABORH Type Recheck Completed [facility] Blood 02/21/2023 9:53 AM EDT 02/21/2023 9:57 AM EDT Narrative Resulting Agency Comment Spec In Lab Smitha Argueta MD BLOOD BANK LAB ORDER JESUS [facility] [place] [address] * Antibody screen (02/21/2023 9:53 AM EDT) Pathologist [facility] Ab Screen Interp Negative [facility] Expires at 2359 on: 02/24/2023 [facility] Blood 02/21/2023 9:53 AM EDT 02/21/2023 9:57 AM EDT Narrative Resulting Agency Comment Spec In Lab Smitha Argueta MD BLOOD BANK LAB ORDER JESUS [facility] [place] [address] * ABO/Rh Typing (02/21/2023 9:53 AM EDT) ABORH Type A Pos [facility] Blood 02/21/2023 9:53 AM EDT 02/21/2023 9:57 AM EDT Narrative Resulting Agency Comment Spec In Lab Smitha Argueta MD BLOOD BANK LAB ORDER JESUS [facility] [place] [address] * (ABNORMAL) Comprehensive metabolic panel (non-fasting) (02/21/2023 9:53 AM EDT) Pathologist [facility] Glucose 92 65 - 199 mg/dL [facility] Comment:Diabetes: >=200 mg/d L plus symptoms Blood Urea Nitrogen 21(H) 10 - 20 mg/dL [facility] Creatinine 1.22 0.80 - 1.50 mg/dL [facility] Sodium 139 135 - 145 mmol/L [facility] Potassium 4.4 3.5 - 5.0 mmol/L [facility] Comment: Please note: ??Patients with WBC >100,000 may have falsely elevated Potassium levels. ??For accurate Potassium quantification in these patients send serum separator tube (gold top) for subsequent determinations. ??Contact the Clinical Chemistry Laboratory if there are any questions. Chloride 102 98 - 107 mmol/L [facility] Carbon Dioxide 25 22 - 31 mmol/L [facility] Anion Gap 12 5 - 15 mmol/L [facility] Calcium 9.4 8.5 - 10.5 mg/dL [facility] Protein, Total 7.3 6.1 - 8.0 g/dL [facility] Albumin 4.6 3.2 - 5.2 g/dL [facility] Aspartate Aminotransferase 17 0 - 39 unit/L [facility] Alanine Aminotransferase 39 0 - 55 unit/L [facility] Alkaline Phosphatase 88 40 - 130 unit/L [facility] Bilirubin, Total 0.4 0.2 - 1.3 mg/dL [facility] Est Glomerular Filtration Rate 72 >=60 mL/min/1. 73 m?? [facility] Comment: This patient's estimated GFR was [...] Agency Comment Spec In Lab Norma Garrido SE[employer] KISS MAKER CHEMISTRY ORDERABL ES [facility] [place] [address] documented in this encounter Visit Diagnoses Diagnosis Idiopathic thrombocytopenic purpura Immune thrombocytopenic purpura Stage 1 chronic kidney disease Chronic ITP (idiopathic thrombocytopenia) Immune thrombocytopenic purpura documented in this encounter Care Teams Manager Solar Relationship Specialty Start Date End Date Marian Pierre MD [address] [place] [address] PCP - General Family Medicine 08/15/22 documented as of this encounter
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
--- OUTSIDE RECORDS SUMMARY | 2024-10-27 11:25 | XMS_ITS | Encounter Summary ---
Author Organization [facility] [place] [address] Care Team Providers Care Instructional Design Consultant Name Role Phone Marian Pierre MD Primary Care Provider [phone] Reason for Visit * Reason Comments Follow-up Doing ok, post nasal drip in the morning, left ear issues, pressure from sinus Encounter Details Date Type Department Care Team (Late st Contact Info) Description 04/09/2023 4:30 PM EDT Office [place] [address] Raza Glasgow MD [facility] [place] [address] Chronic pansinusitis (Primary Dx); Thrombocytopenia; Nasal obstruction Social History Tobacco Use [...] - - Weight 97.5 kg (215 lb) 04/09/2023 4:03 PM EDT Height 175.3 cm (5' 9) 04/09/2023 4:03 PM EDT Body Mass Index 31.75 04/09/2023 4:03 PM EDT documented in this encounter Progress Notes * Raza Glasgow MD - 04/09/2023 4:30 PM EDT Images from the original [...] There is not a history of asthma. Interval History: 04/09/2023: Today, Prasanna returns in follow-up to review management options for chronic rhinosinusitiswithout nasal polyps. Unfortunately, his previously scheduled surgery (hernia repair) was canceled pending cardiac clearance. The patient and I had also discussed the risks of functional endoscopic sinus surgery specifically as it relates to his chronic thrombocytopenia. His medical sales consultant, Dr. Rebolledo, has been very helpful in working with our team to optimize platelet transfusion preoperatively. However, it does seem that it will be challenging to meet the 100k threshold -- Therefore, today we have focused our discussion on procedural options to minimize the risk of postoperative bleeding specifically balloon sinuplasty. Today, Prasanna reports ongoing chronic sinonasal symptoms including posterior rhinorrhea, bilateral nasal congestion, poor sense of smell and frontal sinus pressure. He has previously trialed oral antibiotics, systemic steroids, at least 4-6 weeks of intranasal steroids and saline irrigation -- We today have reviewed an alternative topical steroid option, specifically budesonide nasal irrigations twice daily. Past Medical History: Diagnosis Date Allergy asthma prostatitis restless leg Past Surgical History: Procedure Laterality Date CT GUIDED INJECTION SI JOINT 09/10/2018 CT Guided Injection SI Joint 09/10/2018 [facility] RAD CAT SCAN CT GUIDED NERVE BLOCK LUMBAR SINGLE LEVEL 08/05/2019 CT Guided Nerve Block Lumbar Single Level 08/05/2019 [facility] RAD CAT SCAN PRO UNLISTED PROCEDURE, MUSCULOSKELETAL SYSTEM, GENERAL Knee PRO UNLISTED PX UR SYS June, Vasectomy Current Outpatient Medications Medication Sig Dispense Refill mometasone (ELOCON) 0.1 % Solution ADD 1ML (0.5ML TWICE) OF MEDICATION TO 250ML OF SALINE IN SALINEIRRIGATION BOTTLE; IRRIGATE SINUSES WITH 120ML THROUGH EACH NOSTRIL TWICE DAILY omeprazole (PriLOSEC) 40 mg Capsule, Delayed Release(E.C.) Take 40 mg by mouth daily. acetaminophen (Tylenol) 500 mg Tablet Take 1,000 mg by mouth every 6 hours as needed for Pain. multivitamin Tablet, Chewable Take by mouth. cetirizine (ZYRTEC) 10 mg Tablet PRN pramipexole (MIRAPEX) 1 mg Tablet 0.5 mg. Indications: pt states he is taking .5 mg budesonide (Pulmicort) 0.5 mg/2 mL Suspension for Nebulization Mix 1 respule with 240 mL (8 oz) saline in irrigation bottle. Irrigate each nostril twice daily as directed. 360 mL 3 No current facility-administered medications for this visit. Allergies Allergen Reactions Pollen, Micronized Itching Watery eyes and sneezing Social History Tobacco Use Smoking status: Never Smokeless tobacco: Never Substance Use Topics Alcohol use: Yes Types: 1 Glasses of wine per week Comment: once a month Family History Problem Relation Age of Onset Depression Maternal Uncle High Blood Pressure Father Review of Systems: [...] to perform endoscopy. Procedure: Nasal Endoscopy (CPT 42289) Indication: Symptoms suggestive of chronic rhinosinusitis. Due to limited visualization with anterior rhinoscopy that does not provide sufficient clinical information to establish a diagnosis, sinonasal endoscopy was performed using topical anesthetic and vasoconstrictors as needed. A repeat nasal endoscopy is medically necessary [...] bilaterally Inferior turbinates: Hypertrophied bilaterally Middle turbinates: Edematous bilaterally Right middle meatus, superior meatus, and sphenoethmoidal recess are edematous without polyps or purulence Left middle meatus, superior meatus, and sphenoethmoidal recess are edematous without polyps or purulence Olfactory cleft: Patent bilaterally Visualized portion of nasopharynx unremarkable CT sinus 10/24/2022 Partial opacification of left worse than right maxillary, anterior/posterior ethmoid and sphenoid sinuses. Bilateral frontal sinus partial opacification. [place] Am[place]-Rochelle Score Scores Each Sinus 0 - 2, [...] Plan: Encounter Diagnoses Name Primary? Chronic pansinusitis Yes Thrombocytopenia Nasal obstruction The patient has been very appropriate medically managed to date, specifically including multiple prior courses of oral antibiotics, systemic steroids, at least 4-6 weeks of intranasal steroids and irrigations, which were unsuccessful. He follows up today with partial control of symptoms. We reviewed the need for cardiac clearance as well as our outlined plan for preoperative platelet transfusion. In terms of surgical approach, I discussed a minimally invasive endoscopic approach withballoon sinuplasty to dilate the natural ostia of the above sinuses. This may have a relative risk reduction with less tissue trauma as compared to traditional functional endoscopic sinus surgery. Hewould still have a risk of postoperative epistaxis. I reviewed the risks and benefits of medical therapy versus surgery, to include bleeding, infection, injury to the eye/visual loss/double vision, cerebrospinal fluid (CSF) leak, tearing, altered smell and taste, recurrent symptoms, need for further surgery and they wish to proceed. We discussed realistic expectations of surgery and the fact thatsurgery is not curative. In the interim, we will initiate alternative topical steroid delivery via mometasone nasal irrigations twice daily. I reviewed that he is at elevated risk of intraoperative and postoperative epistaxis in the setting of known thrombocytopenia. I have [facility] hematology provider Dr. Rebolledo to assist with o ptimizing his platelet count preoperatively. He verbalized understanding of these risks and is agreeable to trialing the mometasone irrigations twice daily. We will place surgical request orders, request preoperative cardiac clearance, and he will require hematology follow-up with preoperative platelet transfusion orders. Appreciate assistance in scheduling. Bilateral endoscopic sinus surgery is medically necessary in this case in the setting of: Chronic rhinosinusitis with persistent symptoms of bilateral pain, pressure and drainage (same sideas CT abnormalities, see below) lasting longer than 12 weeks Post-treatment CT scan of the sinuses shows the following abnormality for which surgery is indicated: BILATERAL NASAL/SINUS ENDOSCOPY, W/BALLOON DILATION OF MAXILLARY SINUS OSTIUM, CPT 26135-30 BILATERAL NASAL/SINUS ENDOSCOPY, W/BALLOON DILATION OF FRONTAL SINUS OSTIUM, CPT 05647-34 BILATERAL NASAL/SINUS ENDOSCOPY, W/BALLOON DILATION OF SPHENOID SINUS OSTIUM, CPT 18211-04 OUTFRACTURE BILATERAL INFERIOR TURBINATES, CPT 25031-07 STEREOTACTIC IMAGE GUIDANCE, CPT 35433 Thank you very much for asking me to see this very pleasant patient. Sincerely, Raza Glasgow MD Rhinology, Endoscopic Sinus & Skull Base Surgery Division of Otolaryngology - Head [place] [address] [facility] Over 50% of this 30 minute visit was spent counseling or coordinating care and discussing medical and/or surgical treatments as described above. documented in this encounter Plan of Treatment Upcoming Encounters Date Type Department Care Team (Late st Contact Info) Description 01/28/2025 3:30 PM EDT Office [place] [address] Raza Glasgow MD [facility] [place] [address] documented as of this encounter Visit Diagnoses Diagnosis Chronic pansinusitis- Primary Other chronic sinusitis Thrombocytopenia Thrombocytopenia, unspecified Nasal obstruction Other diseases of nasal cavity and sinuses documented in this encounter Care Teams Instructional Design Consultant Relationship Specialty Start Date End Date Marian Pierre MD [address] [facility] [place] [address] PCP - General Family Medicine 08/15/22 documented as of this encounter
--- OUTSIDE RECORDS SUMMARY | 2024-10-27 11:25 | XMS_ITS | Encounter Summary ---
Author Organization [facility] [place] [address] Care Team Providers Care Stitcher Set Up Operator Automatic Name Role Phone Marian Pierre MD Primary Care Provider [phone] Encounter Details Date Type Department Care Team (Late st Contact Info) Description 01/23/2023 [place] [phone] Lara Mccann Social History Tobacco Use Types [...] 3:30 PM EDT Office [place] [address] Raza Glasgow MD [facility] [place] [address] documented as of this encounter Visit Diagnoses Not on filedocumented in this encounter Care Teams Stitcher Set Up Operator Automatic Relationship Specialty Start Date End Date Marian Pierre MD [address] [place] [address] [place] [address] PCP - General Family Medicine 08/15/22 documented as of this encounter
--- OUTSIDE RECORDS SUMMARY | 2024-10-27 11:25 | XMS_ITS | Encounter Summary ---
Author Organization [facility] [place] [address] Care Team Providers Care Utility Lineman Name Role Phone Marian Pierre MD Primary Care Provider Encounter Details Date Type Department Care Team (Latest Contact Info) Description 02/21/2023 Travel Social History Tobacco Use Types Packs/Day [...] EDT Office Visit [place] [address] Raza Glasgow MD [facility] [place] [address] documented as of this encounter Visit Diagnoses Not on filedocumented in this encounter Care Teams Utility Lineman Relationship Specialty Start Date End Date Marian Pierre MD [address] [place] [id number] PCP - General Family Medicine 08/15/22 documented as of this encounter
--- OUTSIDE RECORDS SUMMARY | 2024-10-27 11:25 | XMS_ITS | Encounter Summary ---
Author Organization [facility] [place] [address] Care Team Providers Care Union Carpenter Name Role Phone Marian Pierre MD Primary Care Provider Encounter Details Date Type Department Care Team (Latest Contact Info) Description 03/29/2023 Travel Social History Tobacco Use Types Packs/Day [...] 3:30 PM EDT Office [place] [address] Raza Glasgow MD [facility] [place] [address] documented as of this encounter Visit Diagnoses Not on filedocumented in this encounter Care Teams Union Carpenter Relationship Specialty Start Date End Date Marian Pierre MD [address] [place] [address] PCP - General Family Medicine 08/15/22 documented as of this encounter
--- OUTSIDE RECORDS SUMMARY | 2024-10-27 11:25 | XMS_ITS | Encounter Summary ---
Author Organization [facility] [place] [address] Care Team Providers Care Senior Construction Estimator Name Role Phone Marian Pierre MD Primary Care Provider [phone] Encounter Details Date Type Department Care Team (Late st Contact Info) Description 12/18/2022 Orders [place] [phone] Smitha Argueta MD [facility] [place] [address] Chronic ITP (idiopathic thrombocytopenia) Social History Tobacco [...] 3:30 PM EDT Office [place] [phone] Raza Glasgow MD [facility] [place] [address] documented as of this encounter Visit Diagnoses Diagnosis Chronic ITP (idiopathic thrombocytopenia) Immune thrombocytopenic purpura documented in this encounter Care Teams Senior Construction Estimator Relationship Specialty Start Date End Date Marian Pierre MD [address] [place] [address] PCP - General Family Medicine 08/15/22 documented as of this encounter
--- OUTSIDE RECORDS SUMMARY | 2024-10-27 11:25 | XMS_ITS | Encounter Summary ---
Author Organization [facility] [place] [address] Care Team Providers Care Costume Maker Name Role Phone Marian Pierre MD Primary Care Provider Encounter Details Date Type Department Care Team (Late Contact Info) Description 10/24/2022 Ancillary Procedure Radiology Library at [facility] [place] [phone] Marian Pierre MD [address] [place] [address] Social History Tobacco Use Types Packs/Day Years [...] 3:30 PM EDT Office Visit Otolaryngology at [facility] [place] [phone] Raza Glasgow MD [facility] [place] [address] documented as of this encounter Procedures Procedure Name Priority Date/Time Associated Diagnosis Comments FILM LIBRARY STORAGE ONLY CT HEAD Routine 10/24/2022 12:00 AM EST documented in this encounter Results * Film Library- Storage Only CT Head (10/24/2022 12:00 AM EST) Narrative LEVI ANGELES - 12/12/2022 2:28 PM EST This exam is auto-finalizing. It's purpose is for storage only. Marian Pierre MD [facility] FILM LIBRARY ORD ERABLES Performing Organization Address City/State/[facility] Co de Phone Number [place], [place] documented in this encounter Visit Diagnoses Not on filedocumented in this encounter Care Teams Costume Maker Relationship Specialty Start Date End Date Marian Pierre MD [address] [place] [address] PCP - General Family Medicine 08/15/22 documented as of this encounter
--- OUTSIDE RECORDS SUMMARY | 2024-10-27 11:25 | XMS_ITS | Encounter Summary ---
Author Organization [facility] [place] [address] Care Team Providers Care Blowing Weasand Name Role Phone Marian Pierre MD Primary Care Provider Encounter Details Date Type Department Care Team (Latest Contact Info) Description 12/11/2022 Travel Social History Tobacco Use Types Packs/Day [...] 3:30 PM EDT Office [place] [address] Raza Glasgow MD [facility] [place] [address] documented as of this encounter Visit Diagnoses Not on filedocumented in this encounter Care Teams Blowing Weasand Relationship Specialty Start Date End Date Marian Pierre MD [address] [place] [address] PCP - General Family Medicine 08/15/22 documented as of this encounter
--- OUTSIDE RECORDS SUMMARY | 2024-10-27 11:25 | XMS_ITS | Encounter Summary ---
[place] [address] Care Team Providers Care Metal Inspector Name Role Phone Marian Pierre MD Primary Care Provider [phone] Encounter Details Date Type Department Care Team (Latest Contact Info) Description 02/21/2023 11:53 AM EDT - 02/21/2023 11:59 PM EDT Hospital Encounter [place]ology [place] [address] Discharge Disposition: Home Social History Tobacco Use [...] 3:30 PM EDT Office [place] [address] Raza Glasgow MD [facility] [place] [address] documented as of this encounter Visit Diagnoses Not on filedocumented in this encounter Care Teams Metal Inspector Relationship Specialty Start Date End Date Marian Pierre MD [address] [place] [id number] PCP - General Family Medicine 08/15/22 documented as of this encounter
--- OUTSIDE RECORDS SUMMARY | 2024-10-27 11:25 | XMS_ITS | Encounter Summary ---
Author Organization [facility] [place] [address] Care Team Providers Care Local Company Hazmat Driver Name Role Phone Marian Pierre MD Primary Care Provider Encounter Details Date Type Department Care Team (Latest Contact Info) Description 02/13/2023 Travel Social History Tobacco Use Types Packs/Day [...] 3:30 PM EDT Office Visit [place] [address] Raza Glasgow MD [facility] [place] [address] documented as of this encounter Visit Diagnoses Not on filedocumented in this encounter Care Teams Local Company Hazmat Driver Relationship Specialty Start Date End Date Marian Pierre MD [address] [place] [address] PCP - General Family Medicine 08/15/22 documented as of this encounter
--- OUTSIDE RECORDS SUMMARY | 2024-10-27 11:25 | XMS_ITS | Encounter Summary ---
Author Organization [facility] [place] [address] Care Team Providers Care Recreational Vehicle Resort Manager Name Role Phone Marian Pierre MD Primary Care Provider [phone] Encounter Details Date Type Department Care Team (Latest Contact Info) Description 03/30/2023 7:45 AM EDT Laboratory Appointment Lab [address] [place] [address] Pure hypertriglyceridemia Social History Tobacco Use Types Packs/Day Years [...] 3:30 PM EDT Office Visit [place] [address] Raza Glasgow MD [facility] [place] [address] documented as of this encounter Procedures Procedure Name Priority Date/Time Associated Diagnosis Comments HC PCH LIPOPROTEIN A Routine 03/30/2023 7:59 AM EDT Pure hypertriglyceridemia CRP, CARDIAC RISK (HS CRP) Routine 03/30/2023 7:59 AM EDT Pure hypertriglyceridemia LIPID PANEL (REFLEX DIRECT LDL) Routine 03/30/2023 7:59 AM EDT Pure hypertriglyceridemia documented in this encounter Results * CRP, cardiac risk (HS CRP) (03/30/2023 7:59 AM EDT) C-Reactive Protein High Sensitivity 3.5 mg/L [facility] Comment: For cardiac risk assessment, two [...] 2003; 107:363-369 CRP Cardiac Risk High Risk [facility] Blood 03/30/2023 7:59 AM EDT 03/30/2023 8:04 AM EDT Narrative Resulting Agency Comment Spec In Lab Kurt Tyler MD CHEMISTRY ORDERABLES [facility] [place] [address] * Lipoprotein A (03/30/2023 7:59 AM EDT) Lipoprotein(A) (MARCH) <7 <75 nmol/L [facility] Comment: ADDITIONAL INFORMATION Please notice that Lp(a) values are reported in molar units (nmol/L). ??These units are recommended by professional society guidelines and expert opinion statements. ??Measured results and risk thresholds are higher than those generated using mass units (mg/dL). Cardiovascular risk increases starting at 75 nmol/L. Lp(a) >=125 nmol/L is considered a risk enhancing factor by the [place] [employer]. This test has been modified from the supervisor cabinetmaker's instructions. Its performance characteristics were determined by [facility] in a manner consistent with CLIA requirements. This test has not been cleared or approved by the U.S. Food and Drug Administration. Test Performed by: [facility] [place] [address] Boat Outfitter: Jay Acosta M.D. Ph.D.; CLIA# [id number] Blood 03/30/2023 7:59 AM EDT 03/30/2023 1:45 PM EDT Narrative Resulting Agency Comment Spec In Lab Kurt Tyler MD LAB SEND OUT ORDERAB LES [facility] [place] [address] * Lipid Panel (Reflex Direct LDL) (03/30/2023 7:59 AM EDT) Cholesterol, Total 165 mg/dL [facility] Comment: Lower Risk: <200 mg/dL Average Risk: 200-239 mg/dL Higher Risk: >qr=223 mg/dL Triglyceride 211 mg/dL [facility] Comment: Average Risk/Lower Risk: <150 mg/dL Borderline High Risk: 150-199 mg/dL High Risk: 200-499 mg/dL Very High Risk: >md=425 mg/dL HDL Cholesterol 33 mg/dL [facility] Comment: Males: ?? Higher Risk: <40 mg/dL Females: ?? Higher Risk: <50 mg/dL LDL Cholesterol 90 mg/dL [facility] Comment: Lowest Risk: <100 mg/dL Lower Risk: 100-129 mg/dL Borderline High Risk: 130-159 mg/dL High Risk: 160-189 mg/dL Very High Risk: >na=969 mg/dL Cholesterol/HDL Ratio 5.0 ratio [facility] Lipid Interpretation See Note [facility] Comment: Lipid management should be guided by a patient? s ASCVD risk, goals and preferences. ACC/AHA Guidelines recommend high intensity statin if clinical ASCVD or LDL greater than or equal to 190 mg/dL. http://AIRTAME.com/CWZ-EOK-Bstymrvnh Adults aged 40-75 with LDL 70-189 mg/dL should have their 10 year ASCVD risk estimated with the ACC/AHA ASCVD risk production cost estimator http://tools.acc.org/PXTHP-Dukc-Tyawbpixh/ Statin should be discussed if risk greater [...] Tyler MD CHEMISTRY ORDERABLES Performing Organization Address City/State/[facility] Co de Phone Number [facility] [place] [address] documented in this encounter Visit Diagnoses Diagnosis Pure hypertriglyceridemia Pure hyperglyceridemia documented in this encounter Care Teams Recreational Vehicle Resort Manager Relationship Specialty Start Date End Date Marian Pierre MD [address] [place] [address] PCP - General Family Medicine 08/15/22 documented as of this encounter
--- OUTSIDE RECORDS SUMMARY | 2024-10-27 11:25 | XMS_ITS | Encounter Summary ---
Author Organization [facility] [place] [address] Care Team Providers Care Supervisor [employer] Name Role Phone Marian Pierre MD Primary Care Provider [phone] Reason for Referral * Consultation (Urgent) - Duplicate Referral Specialty Diagnoses / Procedures Referred By Contac t Referred To Contact Cardiology Diagnoses SOB (shortness of breath) CPEX suggestive of cardiac etiology. Positive stress test Taurus Velásquez MD [facility] [place] [address] [facility] Cardiology [address] [place] [id number] Referral ID Status Reason Start Date Expiration Date Visits Requested Visits Authorized [id number] Duplicate Referral Consult, Test & Treat 02/22/2023 02/22/2024 1 1 Encounter Details Date Type Department Care Team (Late st Contact Info) Description 02/22/2023 Telephone [place] [address] Taurus Velásquez MD [facility] [address] Social History Tobacco Use Types Packs/Day Years [...] encounter Miscellaneous Notes * Telephone Encounter - Taurus Velásquez - 02/22/2023 6:05 PM EDT I interpreted the patient's cardiopulmonary exercise test, which was suggestive of cardiac limitation and also revealed positive ST changes during peak exercise. I called the patient and he states that he already spoke with his surgeon Dr. Argueta who has canceled his elective surgery for tomorrow, which I agree with and strongly recommend as I do not think he is safe to undergo general anesthesiaat this time. Upon further discussion with the patient, it does appear that he has some chest pain intermittently with exertion which also raises my suspicion for a cardiac etiology to his symptoms. He is currently having no active chest pain and I did recommend that were he did develop recurrence of his chest pain he should present straight to the ER for further evaluation. In the interim, I will send an urgent referral to cardiology for further evaluation. He will need cardiac clearance priorto being able to undergo any procedure. The patient expressed understanding and all questions were a nswered. documented in this encounter Plan of Treatment Upcoming Encounters Date Type Department Care Team (Late st Contact Info) Description 01/28/2025 3:30 PM EDT Office [place] [address] Raza Glasgow MD [facility] [place] [address] Scheduled Referrals Name Type Priority Associated Diagnoses Order Schedule Referral to Cardiology Outpatient Referral Urgent SOB (shortness of breath) Ordered: 02/22/2023 documented as of this encounter Visit Diagnoses Diagnosis SOB (shortness of breath) Shortness of breath documented in this encounter Care Teams Supervisor [employer] Relationship Specialty Start Date End Date Marian Pierre MD [address] [place] [id number] PCP - General Family Medicine 08/15/22 documented as of this encounter
--- OUTSIDE RECORDS SUMMARY | 2024-10-27 11:25 | XMS_ITS | Encounter Summary ---
[facility] [place] [address] Care Team Providers Care Burn Crew Member Name Role Phone Marian Pierre MD Primary Care Provider Encounter Details Date Type Department Care Team (Latest Contact Info) Description 02/14/2023 Travel Social History Tobacco Use Types Packs/Day [...] 3:30 PM EDT Office [place] [address] Raza Glasgow MD [facility] [address] documented as of this encounter Visit Diagnoses Not on filedocumented in this encounter Care Teams Burn Crew Member Relationship Specialty Start Date End Date Marian Pierre MD [address] [place] [address] PCP - General Family Medicine 08/15/22 documented as of this encounter
--- OUTSIDE RECORDS SUMMARY | 2024-10-27 11:26 | XMS_ITS | Encounter Summary ---
Author Organization [facility] [place] [address] Care Team Providers Care Bakery Products Checker Name Role Phone Ruperto Shultz SWATHI Primary Care Provider [phone] Encounter Details Date Type Department Care Team (Late st Contact Info) Description 06/06/2022 Ancillary Procedure Radiology Library at [place] [id number] Reginald Hansen MD [address] [place], [place] [id number] Social History Tobacco Use Types Packs/Day Years [...] 3:30 PM EDT Office Visit Otolaryngology at [facility] [place] [phone] Raza Glasgow MD [facility] [place] [address] documented as of this encounter Procedures Procedure Name Priority Date/Time Associated Diagnosis Comments FILM LIBRARY STORAGE ONLY CT ABDOMEN AND PELVIS Routine 06/06/2022 12:00 AM EDT documented in this encounter Results * Film Library- Storage Only CT Abdomen & Pelvis (06/06/2022 12:00 AM EDT) Narrative [facility] - 06/27/2022 4:16 PM EDT This exam is auto-finalizing. It's purpose is for storage only. Reginald Barber MD IMG FILM LIBR F[facility]RIZ[facility] ORDERABLES [place], [place] documented in this encounter Visit Diagnoses Not on filedocumented in this encounter Care Teams Bakery Products Checker Relationship Specialty Start Date End Date Ruperto Shultz APRN [address] [place] [address] PCP - General Family Medicine 03/23/22 08/14/22 documented as of this encounter
--- OUTSIDE RECORDS SUMMARY | 2024-10-27 11:26 | XMS_ITS | Encounter Summary ---
Author [place] [address] Care Team Providers Care Boiler House Operator Name Role Phone Kurtis Kingsley DO Primary Care Provider [phone] Encounter Details Date Type Department Care Team (Latest Contact Info) Description 01/25/2022 9:00 AM EDT - 01/25/2022 11:59 PM EDT Hospital Encounter [place]ematology [place] [address] Idiopathic thrombocytopenic purpura; Stage 1 chronic kidney [...] Start Date End Date acetaminophen (Tylenol) 500 mg Tablet Take 1,000 [...] 3:30 PM EDT Office [place] [address] Raza Glasgow MD [facility] [place] [address] documented as of this encounter Procedures Procedure Name Priority Date/Time Associated Diagnosis Comments HEMOGRAM STAT 01/25/2022 9:12 AM EDT Idiopathic thrombocytopenic purpura Stage 1 chronic kidney disease Thrombocytopenia DIFFERENTIAL, AUTOMATED STAT 01/25/2022 9:12 AM EDT Idiopathic thrombocytopenic purpura Stage 1 chronic kidney disease Thrombocytopenia HC CBC,PLT & AUTO DIFF STAT 01/25/2022 9:12 AM EDT Idiopathic thrombocytopenic purpura Stage 1 chronic kidney disease Thrombocytopenia HC VENIPUNCTURE STAT 01/25/2022 9:12 AM EDT Idiopathic thrombocytopenic purpura Stage 1 chronic kidney disease Thrombocytopenia documented in this encounter Results * Differential, Automated (01/25/2022 9:12 AM EDT) Neutrophil % 51.9 % [facility] Neutrophil Absolute 2.88 1.70 - 6.10 x10(3)/[facility] Lymph % 34.4 % [facility] Lymphocytes Abs 1.9 0.9 - 3.2 x10(3)/[facility] Monocyte % 10.3 % [facility] Monocyte Abs 0.6 0.3 - 0.9 x10(3)/[facility] Eos % 2.2 % [facility] Eosinophils Abs 0.1 0.0 - 0.4 x10(3)/[facility] Basophil % 0.5 % [facility] Baso Absolute 0.0 0.0 - 0.1 x10(3)/[facility] Immature Gran % 0.70 % [facility] Comment: Immature granulocytes(IG's)percentage and absolute count will include metamyelocytes, myelocytes, and promyelocytes. Blood smears from CBCs yielding IG's will be scanned manually for concordance. If this scan disagrees with the automated IG or if promyelocytes are noted, a manual differential will be performed. Immature Gran Absolute 0.04 0.00 - 0.04 x10(3)/mcL [facility] Blood 01/25/2022 9:12 AM EDT 01/25/2022 9:37 AM EDT Narrative Resulting Agency Comment Spec In Lab Maikel Rebolledo MD HEMATOLOGY ORDERABLE S [facility] [place] [address] * (ABNORMAL) Hemogram (01/25/2022 9:12 AM EDT) White Blood Cell 5.6 4.0 - 9.5 x10(3)/mc L [facility] Red Blood Cell 5.60(H) 4.58 - 5.54 x10(6)/mc L [facility] Hemoglobin 16.2 13.7 - 16.5 g/dL [facility] Hematocrit 46.8 40.5 - 48.5 % [facility] Mean Cell Volume 83.6 82.9 - 93.1 fL [facility] Mean Cell Hemoglobin 28.9 27.5 - 32.1 pg [facility] Mean Cell Hemoglobin Concentration 34.6 32.0 - 35.7 g/dL [facility] Platelet 41(L) 145 - 357 x10(3)/mc L [facility] RDW Standard Deviation 38.1 36.0 - 45.0 [facility] RDW coefficient of variation 12.7 11.4 - 13.8 % [facility] Mean Platelet Volume 13.1(H) 7.6 - 12.9 [facility] NRBC% auto 0.0 % [facility] NRBC Absolute 0.000 0.000 - 0.000 x10(3)/mc L [facility] Blood 01/25/2022 9:12 AM EDT 01/25/2022 9:37 AM EDT Narrative Resulting Agency Comment Spec In Lab Maikel Rebolledo MD HEMATOLOGY ORDERABLE S [facility] [place] [address] * Comprehensive metabolic panel (non-fasting) (01/25/2022 9:12 AM EDT) Glucose 77 65 - 199 mg/dL [facility] Comment:Diabetes: >=200 mg/d L plus symptoms Blood Urea Nitrogen 18 10 - 20 mg/dL [facility] Creatinine 1.32 0.80 - 1.50 mg/dL [facility] Sodium 139 135 - 145 mmol/L [facility] Potassium 4.1 3.5 - 5.0 mmol/L [facility] Comment: Please note: ??Patients with WBC >100,000 may have falsely elevated Potassium levels. ??For accurate Potassium quantification in these patients send serum separator tube (gold top) for subsequent determinations. ??Contact the Clinical Chemistry Laboratory if there are any questions. Chloride 103 98 - 107 mmol/L [facility] Carbon Dioxide 27 22 - 31 mmol/L [facility] Anion Gap 9 5 - 15 mmol/L [facility] Calcium 9.3 8.5 - 10.5 mg/dL [facility] Protein, Total 7.3 6.1 - 8.0 g/dL [facility] Albumin 4.8 3.2 - 5.2 g/dL [facility] Aspartate Aminotransferase 21 0 - 39 unit/L [facility] Alanine Aminotransferase 41 0 - 55 unit/L [facility] Alkaline Phosphatase 86 40 - 130 unit/L [facility] Bilirubin, Total 0.4 0.2 - 1.3 mg/dL [facility] Est Glomerular Filtration Rate 63 >=60 mL/min/1. 73 m?? [facility] Comment: This patient? s estimated glomerular filtration rate (eGFR) is between 63 mL/min/1.73 m2 (patients with less muscle mass per kg body weight) and 73 mL/min/1.73 m2 (patients with more muscle mass per kg body weight) as determined by the CKD-EPI equation. Assessment of eGFR is not appropriate when creatinine concentrations are rapidly changing. For clinical decisions where creatinine clearance will affect therapy, a 24-hour urine creatinine clearance may be advised. Assignment of CKD stage 1 - 5 for patients with an eGFR near the transition point between stages may be based on clinical assessment of muscle mass and symptoms in addition to eGFR. Blood 01/25/2022 9:12 AM EDT 01/25/2022 9:37 AM EDT Narrative Resulting Agency Comment Spec In Lab Maikel Rebolledo MD CHEMISTRY ORDERABLES [facility] [place] [address] documented in this encounter Visit Diagnoses Diagnosis Idiopathic thrombocytopenic purpura Immune thrombocytopenic purpura Stage 1 chronic kidney disease Thrombocytopenia Thrombocytopenia, unspecified documented in this encounter Care Teams Boiler House Operator Relationship Specialty Start Date End Date Kurtis Kingsley DO [address] [place] [address] PCP - General 09/27/10 03/22/22 documented as of this encounter
--- OUTSIDE RECORDS SUMMARY | 2024-10-27 11:26 | XMS_ITS | Encounter Summary ---
Author Organization [facility] Address [facility] [place] [address] Care Team Providers Care Veterinary Dentist Name Role Phone Marian Pierre MD Primary Care Provider [phone] Encounter Details Date Type Department Care Team (Late st Contact Info) Description 08/15/2022 Tele[place] [phone] Lara Mccann Social History Tobacco Use Types [...] EDT Office [place] [address] Raza Glasgow MD [facility] [place] [address] documented as of this encounter Visit Diagnoses Not on filedocumented in this encounter Care Teams Veterinary Dentist Relationship Specialty Start Date End Date Marian Pierre MD [address] [place] [address] [place] [address] PCP - General Family Medicine 08/15/22 documented as of this encounter
--- OUTSIDE RECORDS SUMMARY | 2024-10-27 11:26 | XMS_ITS | Encounter Summary ---
[place] [address] Care Team Providers Care Maternity Nurse Name Role Phone SanchoKurtis Primary Care Provider Encounter Details Date Type Department Care Team (Latest Contact Info) Description 04/14/2020 7:56 AM EDT - 04/14/2020 11:59 PM EDT Hospital Encounter [place]ology [place] [phone] Idiopathic thrombocytopenic purpura Discharge Disposition: Home Social History Tobacco Use Types Packs/Day Years Used Date Smoking Tobacco: Never Smokeless Tobacco: Never Alcohol Use Standard Drinks/Week Comments Yes 0 (1 standard drink = 0.6 oz pur e alcohol) Sex and Gender Information Value Date Recorded Sex Assigned at Not on file Gender Identity Not on file Sexual Orientation Not on file documented as of this encounter Medications at Time of Discharge Medication Sig Dispensed Refills Start Date End Date multivitamin Tablet, Chewable Take by mouth. cetirizine [...] 3:30 PM EDT Office [place] [phone] Raza Glasgow MD [facility] [place] [address] documented as of this encounter Procedures Procedure Name Priority Date/Time Associated Diagnosis Comments HEMOGRAM STAT 04/14/2020 8:11 AM EDT Idiopathic thrombocytopenic purpura DIFFERENTIAL, AUTOMATED STAT 04/14/2020 8:11 AM EDT Idiopathic thrombocytopenic purpura HC CBC,PLT & AUTO DIFF STAT 04/14/2020 8:11 AM EDT Idiopathic thrombocytopenic purpura documented in this encounter Results * (ABNORMAL) Differential, Automated (04/14/2020 8:11 AM EDT) Neutrophil % 47.3 % [facility] Neutrophil Absolute 2.80 1.70 - 6.10 x10(3)/mc L [facility] Lymph % 38.4 % [facility] Lymphocytes Abs 2.3 0.9 - 3.2 x10(3)/mc L [facility] Monocyte % 8.9 % [facility] Monocyte Abs 0.5 0.3 - 0.9 x10(3)/mc L [facility] Eos % 2.2 % [facility] Eosinophils Abs 0.1 0.0 - 0.4 x10(3)/mc L [facility] Basophil % 0.7 % [facility] Baso Absolute 0.0 0.0 - 0.1 x10(3)/mc L [facility] Immature Gran % 2.50 % [facility] Comment: Immature granulocytes(IG's)percentage and absolute count will include metamyelocytes, myelocytes, and promyelocytes. Blood smears from CBCs yielding IG's will be scanned manually for concordance. If this scan disagrees with the automated IG or if promyelocytes are noted, a manual differential will be performed. Immature Gran Absolute 0.15(H) 0.00 - 0.04 x10(3)/mc L [facility] Blood specimen (specimen) 04/14/2020 8:11 AM EDT 04/14/2020 8:24 AM EDT Narrative Resulting Agency Comment Spec In Lab Maikel Rebolledo MD HEMATOLOGY ORDERABLE S [facility] [place] [address] * (ABNORMAL) Hemogram (04/14/2020 8:11 AM EDT) White Blood Cell 5.9 4.0 - 9.5 x10(3)/[facility] Red Blood Cell 5.53 4.58 - 5.54 x10(6)/[facility] Hemoglobin 16.2 13.7 - 16.5 gm/dL [facility] Hematocrit 46.5 40.5 - 48.5 % [facility] Mean Cell Volume 84.1 82.9 - 93.1 [facility] Mean Cell Hemoglobin 29.3 27.5 - 32.1 pg [facility] Mean Cell Hemoglobin Concentration 34.8 32.0 - 35.7 gm/dL [facility] Platelet 67(L) 145 - 357 x10(3)/[facility] RDW Standard Deviation 38.1 36.0 - 45.0 [facility] RDW coefficient of variation 12.7 11.4 - 13.8 % [facility] Mean Platelet Volume 11.5 7.6 - 12.9 [facility] NRBC% auto 0.0 % [facility] NRBC Absolute 0.000 0.000 - 0.000 x10(3)/[facility] Blood specimen (specimen) 04/14/2020 8:11 AM EDT 04/14/2020 8:24 AM EDT Narrative Resulting Agency Comment Spec In Lab Maikel Rebolledo MD HEMATOLOGY ORDERABLE S [facility] [place] [address] documented in this encounter Visit Diagnoses Diagnosis Idiopathic thrombocytopenic purpura Immune thrombocytopenic purpura documented in this encounter Care Teams Maternity Nurse Relationship Specialty Start Date End Date Kurtis Kingsley DO [address] [place] [address] PCP - General 09/27/10 03/22/22 documented as of this encounter
--- OUTSIDE RECORDS SUMMARY | 2024-10-27 11:26 | XMS_ITS | Encounter Summary ---
[place] [address] Care Team Providers Care Applied Anthropologist Name Role Phone Ruperto Shultz APRN Primary Care Provider [phone] Encounter Details Date Type Department Care Team (Latest Contact Info) Description 05/03/2022 8:58 AM EDT - 05/03/2022 11:59 PM EDT Hospital Encounter Hematology [place] [address] Idiopathic thrombocytopenic purpura; Stage 1 chronic kidney disease Discharge Disposition: Home Social History Tobacco [...] 3:30 PM EDT Office [place] [phone] Raza Glasgow MD [facility] [place] [address] documented as of this encounter Procedures Procedure Name Priority Date/Time Associated Diagnosis Comments HEMOGRAM Routine 05/03/2022 9:06 AM EDT Idiopathic thrombocytopenic purpura Stage 1 chronic kidney disease DIFFERENTIAL, AUTOMATED Routine 05/03/2022 9:06 AM EDT Idiopathic thrombocytopenic purpura Stage 1 chronic kidney disease HC VENIPUNCTURE Routine 05/03/2022 9:06 AM EDT Idiopathic thrombocytopenic purpura Stage 1 chronic kidney disease COMPREHENSIVE METABOLIC PANEL STAT 05/03/2022 9:06 AM EDT Idiopathic thrombocytopenic purpura Stage 1 chronic kidney disease documented in this encounter Results * Differential, Automated (05/03/2022 9:06 AM EDT) Neutrophil % 48.2 % [facility] Neutrophil Absolute 2.12 1.70 - 6.10 x10(3)/[facility] Lymph % 39.1 % [facility] Lymphocytes Abs 1.7 0.9 - 3.2 x10(3)/[facility] Monocyte % 8.4 % [facility] Monocyte Abs 0.4 0.3 - 0.9 x10(3)/[facility] Eos % 2.7 % [facility] Eosinophils Abs 0.1 0.0 - 0.4 x10(3)/[facility] Basophil % 0.7 % [facility] Baso Absolute 0.0 0.0 - 0.1 x10(3)/[facility] Immature Gran % 0.90 % [facility] Comment: Immature granulocytes(IG's)percentage and absolute count will include metamyelocytes, myelocytes, and promyelocytes. Blood smears from CBCs yielding IG's will be scanned manually for concordance. If this scan disagrees with the automated IG or if promyelocytes are noted, a manual differential will be performed. Immature Gran Absolute 0.04 0.00 - 0.04 x10(3)/[facility] Blood 05/03/2022 9:06 AM EDT 05/03/2022 9:23 AM EDT Narrative Resulting Agency Comment Spec In Lab Norma Garrido APRN HEMATOLOGY ORDERAB LES [facility] [place] [address] * (ABNORMAL) Hemogram (05/03/2022 9:06 AM EDT) White Blood Cell 4.4 4.0 - 9.5 x10(3)/[facility] Red Blood Cell 5.34 4.58 - 5.54 x10(6)/[facility] Hemoglobin 15.9 13.7 - 16.5 g/dL [facility] Hematocrit 44.9 40.5 - 48.5 % [facility] Mean Cell Volume 84.1 82.9 - 93.1 fL [facility] Mean Cell Hemoglobin 29.8 27.5 - 32.1 pg [facility] Mean Cell Hemoglobin Concentration 35.4 32.0 - 35.7 g/dL [facility] Platelet 44(L) 145 - 357 x10(3)/[facility] RDW Standard Deviation 39.5 36.0 - 45.0 fL [facility] RDW coefficient of variation 13.1 11.4 - 13.8 % [facility] Mean Platelet Volume 12.6 7.6 - 12.9 fL [facility] NRBC% auto 0.0 % [facility] NRBC Absolute 0.000 0.000 - 0.000 x10(3)/mcL [facility] Blood 05/03/2022 9:06 AM EDT 05/03/2022 9:23 AM EDT Narrative Resulting Agency Comment Spec In Lab Norma Garrido [employer] OPERATOR HEMATOLOGY ORDERAB LES [facility] [place] [address] * (ABNORMAL) Comprehensive metabolic panel (non-fasting) (05/03/2022 9:06 AM EDT) Glucose 104 65 - 199 mg/dL [facility] Comment:Diabetes: >=200 mg/d L plus symptoms Blood Urea Nitrogen 16 10 - 20 mg/dL [facility] Creatinine 1.13 0.80 - 1.50 mg/dL [facility] Sodium 136 135 - 145 mmol/L [facility] Potassium 3.7 3.5 - 5.0 mmol/L [facility] Comment: Please note: ??Patients with WBC >100,000 may have falsely elevated Potassium levels. ??For accurate Potassium quantification in these patients send serum separator tube (gold top) for subsequent determinations. ??Contact the Clinical Chemistry Laboratory if there are any questions. Chloride 101 98 - 107 mmol/L [facility] Carbon Dioxide 26 22 - 31 mmol/L [facility] Anion Gap 9 5 - 15 mmol/L [facility] Calcium 9.2 8.5 - 10.5 mg/dL [facility] Protein, Total 7.1 6.1 - 8.0 g/dL [facility] Albumin 4.7 3.2 - 5.2 g/dL [facility] Aspartate Aminotransferase 49(H) 0 - 39 unit/L [facility] Alanine Aminotransferase 51 0 - 55 unit/L [facility] Alkaline Phosphatase 93 40 - 130 unit/L [facility] Bilirubin, Total 0.5 0.2 - 1.3 mg/dL [facility] Est Glomerular Filtration Rate 80 >=60 mL/min/1. 73 m?? [facility] Comment: This patient's estimated [...] and symptoms in addition to eGFR. Blood 05/03/2022 9:06 AM EDT 05/03/2022 9:23 AM EDT Narrative Resulting Agency Comment Spec In Lab Norma Garrido APRN CHEMISTRY ORDERABL ES [facility] [place] [address] documented in this encounter Visit Diagnoses Diagnosis Idiopathic thrombocytopenic purpura Immune thrombocytopenic purpura Stage 1 chronic kidney disease documented in this encounter Care Teams Applied Anthropologist Relationship Specialty Start Date End Date Ruperto Shultz APRN [address] [place] [address] PCP - General Family Medicine 03/23/22 08/14/22 documented as of this encounter
--- OUTSIDE RECORDS SUMMARY | 2024-10-27 11:26 | XMS_ITS | Encounter Summary ---
Author Organization [facility] [place] [address] Care Team Providers Care Tax Accounting Assistant Name Role Phone SanchoKurtis mcdaniel Primary Care Provider Encounter Details Date Type Department Care Team (Late st Contact Info) Description 03/31/2021 Orders Only Hematology [place] [phone] Norma Garrido APRN [facility] [address] HEMATOLOGY [place] [address] Idiopathic thrombocytopenic purpura Social History Tobacco Use Types Packs/Day Years [...] 3:30 PM EDT Office [place] [phone] Raza Glasgow MD [facility] [place] [address] documented as of this encounter Results * Comprehensive metabolic panel (non-fasting) (03/23/2022 7:54 AM EDT) Glucose 112 65 - 199 mg/dL [facility] Comment:Diabetes: >=200 mg/d L plus symptoms Blood Urea Nitrogen 20 10 - 20 mg/dL [facility] Creatinine 1.13 0.80 - 1.50 mg/dL [facility] Sodium 138 135 - 145 mmol/L [facility] Potassium 4.1 3.5 - 5.0 mmol/L [facility] Comment: Please note: ??Patients with WBC >100,000 may have falsely elevated Potassium levels. ??For accurate Potassium quantification in these patients send serum separator tube (gold top) for subsequent determinations. ??Contact the Clinical Chemistry Laboratory if there are any questions. Chloride 101 98 - 107 mmol/L [facility] Carbon Dioxide 23 22 - 31 mmol/L [facility] Anion Gap 14 5 - 15 mmol/L [facility] Calcium 9.9 8.5 - 10.5 mg/dL [facility] Protein, Total 7.3 6.1 - 8.0 g/dL [facility] Albumin 4.8 3.2 - 5.2 g/dL [facility] Aspartate Aminotransferase 24 0 - 39 unit/L [facility] Alanine Aminotransferase 43 0 - 55 unit/L [facility] Alkaline Phosphatase 90 40 - 130 unit/L [facility] Bilirubin, Total 0.4 0.2 - 1.3 mg/dL [facility] Est Glomerular Filtration Rate 76 >=60 mL/min/1. 73 m?? [facility] Comment: This patient? s estimated glomerular filtration rate (eGFR) is between 76 mL/min/1.73 m2 (patients with less muscle mass per kg body weight) and 88 mL/min/1.73 m2 (patients with more muscle mass [...] and symptoms in addition to eGFR. Blood 03/23/2022 7:54 AM EDT 03/23/2022 8:08 AM EDT Narrative Resulting Agency Comment Spec In Lab Norma Quarles Hema ASTROBIOLOGIST CHEMISTRY ORDERABL ES [facility] [place] [address] * Comprehensive metabolic panel (non-fasting) (07/27/2021 8:24 AM EDT) Glucose 102 65 - 199 mg/dL [facility] Comment:Diabetes: >=200 mg/d L plus symptoms Blood Urea Nitrogen 20 10 - 20 mg/dL [facility] Creatinine 1.15 0.80 - 1.50 mg/dL [facility] Sodium 138 135 - 145 mmol/L [facility] Potassium 4.4 3.5 - 5.0 mmol/L [facility] Comment: Please note: ??Patients with WBC >100,000 may have falsely elevated Potassium levels. ??For accurate Potassium quantification in these patients send serum separator tube (gold top) for subsequent determinations. ??Contact the Clinical Chemistry Laboratory if there are any questions. Chloride 100 98 - 107 mmol/L [facility] Carbon Dioxide 27 22 - 31 mmol/L [facility] Anion Gap 11 5 - 15 mmol/L [facility] Calcium 9.4 8.5 - 10.5 mg/dL [facility] Protein, Total 7.3 6.1 - 8.0 gm/dL [facility] Albumin 4.7 3.2 - 5.2 gm/dL [facility] Aspartate Aminotransferase 17 0 - 39 unit/L [facility] Alanine Aminotransferase 33 0 - 55 unit/L [facility] Alkaline Phosphatase 84 40 - 130 unit/L [facility] Bilirubin, Total 0.5 0.2 - 1.3 mg/dL [facility] Est Glomerular Filtration Rate 75 >=60 mL/min/1. 73 m?? [facility] Comment: This patient? s estimated glomerular filtration rate (eGFR) is between 75 mL/min/1.73 m2 (patients with less muscle mass per kg body weight) and 87 mL/min/1.73 m2 (patients with more muscle mass [...] and symptoms in addition to eGFR. Blood 07/27/2021 8:24 AM EDT 07/27/2021 8:32 AM EDT Narrative Resulting Agency Comment Spec In Lab Norma Garrido ASTROBIOLOGIST CHEMISTRY ORDERABL ES [facility] [place] [address] documented in this encounter Visit Diagnoses Diagnosis Idiopathic thrombocytopenic purpura Immune thrombocytopenic purpura documented in this encounter Care Teams Tax Accounting Assistant Relationship Specialty Start Date End Date Kurtis Kingsley DO [address] [place] [address] PCP - General 09/27/10 03/22/22 documented as of this encounter
--- OUTSIDE RECORDS SUMMARY | 2024-10-27 11:26 | XMS_ITS | Encounter Summary ---
Author Organization [facility] [place] [address] Care Team Providers Care Catalytic Converter Operator Helper Name Role Phone Marian Pierre MD Primary Care Provider Encounter Details Date Type Department Care Team (Latest Contact Info) Description 09/01/2022 Travel Social History Tobacco Use Types Packs/Day [...] 3:30 PM EDT Office [place] [address] Raza Glasgow MD [facility] [place] [address] documented as of this encounter Visit Diagnoses Not on filedocumented in this encounter Care Teams Catalytic Converter Operator Helper Relationship Specialty Start Date End Date Marian Pierre MD [address] [place] [id number] PCP - General Family Medicine 08/15/22 documented as of this encounter
--- OUTSIDE RECORDS SUMMARY | 2024-10-27 11:26 | XMS_ITS | Encounter Summary ---
[facility] [place] [address] Care Team Providers Care Recenterer Name Role Phone SanchoKurtis mcdaniel Primary Care Provider [phone] Encounter Details Date Type Department Care Team (Late st Contact Info) Description 05/06/2021 External Results [place]ology [place] [phone] TherouxMarissa Social History Tobacco Use Types Packs/Day Years [...] 3:30 PM EDT Office [place] [address] Raza Glasgow MD [facility] [place] [address] documented as of this encounter Procedures Procedure Name Priority Date/Time Associated Diagnosis Comments CBC (WITH DIFF) Routine 03/22/2021 10:57 AM EDT COMPREHENSIVE METABOLIC PANEL Routine 03/22/2021 10:57 AM EDT documented in this encounter Results * (ABNORMAL) Comprehensive metabolic panel (non-fasting) (03/22/2021 10:57 AM EDT) Glucose 103 EXTERNAL LAB Blood Urea Nitrogen 19(EXTERNA L/ABN) [facility] Creatinine 1.3 [facility] Est Glomerular Filtration Rate 58.92(EXTE RNAL/ABN) [facility] Sodium 140 EXTERNAL LAB Potassium 4.0 EXTERNAL LAB Chloride 102 EXTERNAL LAB Carbon Dioxide 30 EXTERNAL LAB Calcium 9.0 EXTERNAL LAB Blood 03/22/2021 10:5 7 AM EDT Historical Provider CHEMISTRY ORDERAB LES EXTERNAL LAB * (ABNORMAL) CBC (with Diff) (03/22/2021 10:57 AM EDT) White Blood Cell 4.79 EXTERNAL LAB Hemoglobin 16.2 EXTERNAL LAB Hematocrit 46.9 EXTERNAL LAB Platelet 81(EXTERNA L/ABN) EXTERNAL LAB Neutrophil Absolute (ANC) - Automated 2.54 EXTERNAL LAB Lymph Absolute Manual 1.87 EXTERNAL LAB Blood 03/22/2021 10:5 7 AM EDT Historical Provider HEMATOLOGY ORDERA BLES EXTERNAL LAB documented in this encounter Visit Diagnoses Not on filedocumented in this encounter Care Teams Recenterer Relationship Specialty Start Date End Date Kurtis Kingsley DO [address] [place] [address] [address] [facility] [address] [place] [address] PCP - General 09/27/10 03/22/22 documented as of this encounter
--- OUTSIDE RECORDS SUMMARY | 2024-10-27 11:26 | XMS_ITS | Encounter Summary ---
[place] [address] Care Team Providers Care Marketing Manager Health Communications Name Role Phone Marian Pierre MD Primary Care Provider [phone] Encounter Details Date Type Department Care Team (Latest Contact Info) Description 09/01/2022 7:45 AM EDT - 09/01/2022 11:59 PM EDT Hospital [place] [address] Bronchitis Discharge Disposition: Home Social History Tobacco Use [...] 3:30 PM EDT [place] [address] Raza Glasgow MD [facility] [place] [address] documented as of this encounter Procedures Procedure Name Priority Date/Time Associated Diagnosis Comments COMMON PULMONARY FUNCTION TEST Routine 09/01/2022 8:06 AM EDT Bronchitis documented in this encounter Results * Pulmonary Function Testing (09/01/2022 8:06 AM EDT) FVC Actual Pre-BD 3.85 L COMPAS PFT FVC Pre-BD % of Predicted 79 % COMPAS PFT FVC Predicted 4.88 L COMPAS PFT FVC Pre-BD Z-Score -1.59 COMPAS PFT FVC Lower Limits of Normal 3.81 L COMPAS PFT FEV1 Actual Pre-BD 3.35 L COMPAS PFT FEV1 Pre-BD % of Predicted 87 % COMPAS PFT FEV1 Predicted 3.85 L COMPAS PFT FEV1 Pre-BD Z-Score -0.98 COMPAS PFT FEV1 Lower Limits of Normal 3.00 L COMPAS PFT FEV1 / FVC Actual Pre-BD 87 % COMPAS PFT FEV1/FVC Pre-BD Z-Score 1.39 COMPAS PFT FEV1 / FVC LLN 68 % COMPAS PFT [id number] Actual Pre-BD 5.20 L/s COMPAS PFT UHX93-24 Pre-BD % of Predicted 148 % COMPAS PFT VKR85-10 Predicted 3.52 L/s COMPAS PFT [id number] Pre-BD Z-Score 1.33 COMPAS PFT DLCO Hb Actual Pre-BD 23.58 mL/min/mmHg COMPAS PFT DLCO Hb Pre-BD % of Predicted 82 % COMPAS PFT DLCO Hb Pre-BD Z-Score -1.24 COMPAS PFT DLCO Hb Predicted 28.81 mL/min/mmHg COMPAS PFT DLCO [facility]C ACT PRE-BD 23.58 mL/min/mmHg COMPAS PFT DLCO UNC PRE-BD % of PRED 82 % COMPAS PFT DLCO UNC PRE-BD Z-SCORE -1.24 % COMPAS PFT DLCO UNC Predicted 28.81 mL/min/mmHg COMPAS PFT DLCO/VA Actual Pre-BD 4.93 mL/min/mmHg /L COMPAS PFT DLCO/VA Pre-BD % of Predicted 110 % COMPAS PFT DLCO/VA Pre-BD Z-Score 0.68 COMPAS PFT DLCO/VA Predicted 4.48 mL/min/mmHg /L COMPAS PFT Narrative COMPAS PFT - 09/01/2022 8:06 AM EDT FINDINGS: FEV1, FVC, and FEV1/VC are within normal limits. Diffusion capacity is normal. IMPRESSION: Normal spirometry. No diffusion impairment. Procedure Note Devendra Ferrer MD - 09/01/2022 FINDINGS: FEV1, FVC, and FEV1/VC are within normal limits. Diffusioncapacity is normal. IMPRESSION: Normal spirometry. No diffusion impairment. Kassandra Falcon MD PFT ORDERABLES COMPAS PFT documented in this encounter Visit Diagnoses Diagnosis Bronchitis Bronchitis, not specified as acute or chronic documented in this encounter Care Teams Marketing Manager Health Communications Relationship Specialty Start Date End Date Marian Pierre MD [address] [place] [id number] PCP - General Family Medicine 08/15/22 documented as of this encounter
--- OUTSIDE RECORDS SUMMARY | 2024-10-27 11:26 | XMS_ITS | Encounter Summary ---
[place] [address] Care Team Providers Care Chucker Name Role Phone Marian Pierre MD Primary Care Provider Reason for Referral * Consultation (Urgent) - Closed Specialty Diagnoses / Procedures Referred By Contshady t Referred To Contact Pulmonology Diagnoses Bronchitis, not specified as acute or chronic Ivory Wilkerson APRN [address] [place] [address] [facility] [address] [place] [id number] Referral ID Status Reason Start Date Expiration Date V isits Requested Visits Authorized [id number] Closed Consult, Test & Treat PCP Updated and/or Approved 08/15/2022 08/15/2023 6 6 Encounter Details Date Type Department Care Team (Late st Contact Info) Description 08/15/2022 Transcribe Orders eDH Incoming Referrals [phone] Ivory Wilkerson APRN [address] [place], [place] [id number] Bronchitis, not specified as acute or chronic Social History Tobacco Use Types Packs/Day Years [...] 3:30 PM EDT Office [place] [address] Raza Glasgow MD [facility] [place] [address] Scheduled Referrals Name Type Priority Associated Diagnoses Order Schedule Referral to Pulmonology Outpatient Referral Urgent Bronchitis, not specified as acute or chronic Ordered: 08/15/2022 documented as of this encounter Visit Diagnoses Diagnosis Bronchitis, not specified as acute or chronic documented in this encounter Care Teams Chucker Relationship Specialty Start Date End Date Marian Pierre MD [address] [place] [id number] PCP - General Family Medicine 08/15/22 documented as of this encounter
--- OUTSIDE RECORDS SUMMARY | 2024-10-27 11:26 | XMS_ITS | Encounter Summary ---
[place] [address] Care Team Providers Care Power Station Operator Name Role Phone Kurtis Kingsley DO Primary Care Provider [phone] Reason for Visit * Reason Onset Date Comments Questions 01/03/2021 COVID Dx Encounter Details Date Type Department Care Team (Late st Contact Info) Description 01/03/2021 Telephone [place] [phone] Sidra Hawkins RN Questions (COVID Dx) Social History Tobacco Use Types Packs/Day [...] encounter Miscellaneous Notes * Telephone Encounter - Sidra Hawkins RN - 01/03/2021 8:54 AM ESTSummary: Pt with positive COVID test Pt called for advice. He went to his PCP on 12/30 with symptoms he thought were an ear infection buthis COVID test taken over the weekend was positive. The on-call MD he spoke to about that test result, when hearing about the pt's ITP, recommended an infusion. Pt was unclear what kind of infusion. Told him to find out and we'd be happy to weigh in but that in general, as the pt is not on any active treatment for his ITP there is no contraindication to him following his PCP's advice regarding his COVID care and treatment. He called back, the recommendation is for monoclonal antibodies. Will ask his team. * Telephone Encounter - Sidra Hawkins RN - 01/03/2021 8:47 AM EST ----- Message from Jenna Callejas sent at 01/03/2021 8:22 AM EST ----- Regarding: Amaury - Pt got COVID dx over the weekend Contact: Vincent Merida! Prasanna called, he was diagnosed with COVID 19 over the weekend. He says his local MD suggested he have an infusion at [facility]. He wasn't sure what the infusion was. He wants to know if Saurabh agrees with their direction to have this infusion. Prasanna says they're going to call him to explain further. I asked him to confirm exactly what it is that they are recommending he have, and we can then absolutely weigh in on if this would be something Saurabh recommends or not. Please call Prasanna at [phone]. Thanks! Jennie documented in this encounter Plan of Treatment Upcoming Encounters Date Type Department Care Team (Late st Contact Info) Description 01/28/2025 3:30 PM EDT Office [place] [address] Raza Glasgow MD [facility] OTOLARYNG[place] [address] documented as of this encounter Visit Diagnoses Not on filedocumented in this encounter Care Teams Power Station Operator Relationship Specialty Start Date End Date Kurtis Kingsley DO [address] [place] [address] PCP - General 09/27/10 03/22/22 documented as of this encounter
--- OUTSIDE RECORDS SUMMARY | 2024-10-27 11:26 | XMS_ITS | Encounter Summary ---
[place] [address] Care Team Providers Care Assistant Director Of Security Name Role Phone Marian Pierre MD Primary Care Provider Reason for Visit * Reason Onset Date Comments Prior Authorization 09/01/2022 budesonide-f ormoteroL (Symbicort) 160-4.5 mcg/actuation HFA Aerosol Inhaler Encounter Details Date Type Department Care Team (Late st Contact Info) Description 09/01/2022 Telephone [place] [address] Jaunito Pickett CMA Prior Authorization (budesonide-formoteroL (Symbicort) 160-4.5 mcg/actuation HFA Aerosol Inhaler) Social History Tobacco Use Types Packs/Day Years [...] encounter Miscellaneous Notes * Telephone Encounter - Harmony Dumont CMA - 09/01/2022 3:16 PM EDT Images from the original note were not included. * Telephone Encounter - Juanito Pickett CMA - 09/01/2022 1:40 PM EDT PA submitted. Awaiting response from insurance. * Telephone Encounter - Juanito Pickett CMA - 09/01/2022 1:31 PM EDT Medication Prior Authorization Request received via: [facility] Patient: Prasanan Shipman Patient : 1970 Insurance Company: [place] Medicaid Sent via: [facility] Hearn: [id number] Physician: Taurus Velásquez MD Medication Requested: budesonide-formoteroL (Symbicort) 160-4.5 mcg/actuation HFA Aerosol Inhaler Frequency/Sig: Inhale 2 puffs into the lungs 2 times daily. Disp: 1 each Refills: 3 Currently taking: yes If yes, how lon07/2022 Diagnosis for this medication: Moderate persistent asthma, uncomplicated (J45.40) Post-viral cough syndrome (R05.8) Prior medications trialed in this patient: Medication: albuterol HFA Approx Dates: 2018-current Outcome/Adverse Reactions: Inadequate response Additional Notes: documented in this encounter Plan of Treatment Upcoming Encounters Date Type Department Care Team (Late st Contact Info) Description 01/28/2025 3:30 PM EDT Office Visit [place] [address] Raza Glasgow MD [facility] [place] [address] documented as of this encounter Visit Diagnoses Not on filedocumented in this encounter Care Teams Assistant Director Of Security Relationship Specialty Start Date End Date Marian Pierre MD [address] [place] [id number] PCP - General Family Medicine 08/15/22 documented as of this encounter
--- OUTSIDE RECORDS SUMMARY | 2024-10-27 11:26 | XMS_ITS | Encounter Summary ---
Author Organization [facility] [place] [address] Care Team Providers Care Ruby Software Developer Name Role Phone Kurtis Kingsley Primary Care Provider Encounter Details Date Type Department Care Team (Late st Contact Info) Description 04/08/2020 Ancillary Procedure Radiology Library at [facility] [place] [phone] Christian Iyer MD [facility] [place] [address] Social History Tobacco Use Types Packs/Day Years [...] 3:30 PM EDT Office Visit Otolaryngology at [facility] [place] [phone] Raza Glasgow MD [facility] [place] [address] documented as of this encounter Procedures Procedure Name Priority Date/Time Associated Diagnosis Comments FILM LIBRARY STORAGE ONLY DX HIP Routine 04/08/2020 12:00 AM EDT documented in this encounter Results * Film Library- Storage Only DX Hip (04/08/2020 12:00 AM EDT) Narrative LEVI ANGELES - 05/24/2020 8:45 PM EDT This exam is auto-finalizing. It's purpose is for storage only. Christian Iyer MD IMG FILM LIBRARY ORD ERABLES Performing Organization Address City/State/[facility] Co de Phone Number [place], [place] documented in this encounter Visit Diagnoses Not on filedocumented in this encounter Care Teams Ruby Software Developer Relationship Specialty Start Date End Date Kurtis Kingsley DO [address] [place] [address] PCP - General 09/27/10 03/22/22 documented as of this encounter
--- OUTSIDE RECORDS SUMMARY | 2024-10-27 11:26 | XMS_ITS | Encounter Summary ---
[facility] [place] [address] Care Team Providers Care Filter Tender Jelly Name Role Phone Marian Pierre MD Primary Care Provider [phone] Reason for Visit * Reason Comments Follow-up Encounter Details Date Type Department Care Team (Latest Contact Info) Description 09/06/2022 4:30 PM EDT Office Visit [place] [address] Maikel Rebolledo MD [facility] [address] [place] [address] Norma Garrido APRN [facility] [place] [address] Marleen Reis MD Idiopathic thrombocytopenic purpura Social History Tobacco Use [...] Sign Reading Time Taken Comments Blood Pressure 130/88 09/06/2022 3:47 PM EDT Pulse 83 09/06/2022 3:47 PM EDT Temperature 36.5 ??C (97.7 ??F) 09/06/2022 3:47 PM ED T Respiratory Rate 18 09/06/2022 3:47 PM EDT Oxygen Saturation 97% 09/06/2022 3:47 PM EDT Inhaled Oxygen Concentration - - Weight 101.1 kg (222 lb 14.2 oz) 09/06/2022 3:47 PM EDT Height 176.2 cm (5' 9.37) 09/06/2022 3:47 PM ED T Body Mass Index 32.56 09/06/2022 3:47 PM EDT documented in this encounter Progress Notes * Norma Garrido APRN - 09/06/2022 4:30 PM EDT Images from the original [...] reasons - enlarged spleen June 2020 in [facility] reports that he had his right hip [...] that time, his platelets are slowly decreasing overthe past 5 yrs. He has not had [...] vaccine: No. Prefers not to have one CT, MRI IBS Headaches Right occipital Tries to sleep twenty minutres, 1/2 hour. Unknown trigger. covid booster, flu shot not yet, zoster Tylenol Sometimes gets more than once a day jpulmoanry Jaws of life Inguinal , umbilical surgery Review of systems: Constitutional: as above Eyes: [...] to Visit Medication Sig Dispense Refill ??? Symbicort 160-4.5 mcg/actuation HFA Aerosol Inhaler [...] to visit. 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 Family History: - Mother: was tested negative for PLT antigen 1; never had low plt count; - Father: htn, dlp - Siblings: brother and sister: both healthy; His sister also had low plt count at and was transfused; no issues now. Brother is a automotive parts manager at [employer]. 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 Physical Exam: Blood pressure 130/88, pulse 83, temperature 36.5 ??C (97.7 ??F), temperature source Temporal, resp. rate 18, height 176.2 cm (5' 9.37), weight 101.1 kg (222 lb 14.2 oz), SpO2 97 %. GENERAL: Prasanna looks [...] (non-fasting) Result Value Ref Range Glucose Lvl 99 65 - 199 mg/dL BUN 18 10 - 20 mg/dL Creatinine 1.41 0.80 - 1.50 mg/dL Sodium 141 135 - 145 mmol/L Potassium 4.1 3.5 - 5.0 mmol/L Chloride 104 98 - 107 mmol/L CO2 26 22 - 31 mmol/L Anion Gap 11 5 - 15 mmol/L Calcium 9.3 8.5 - 10.5 mg/dL Total Protein 7.3 6.1 - 8.0 g/dL Albumin 4.4 3.2 - 5.2 g/dL AST 23 0 - 39 unit/L ALT 46 0 - 55 unit/L Alk Phos 84 40 - 130 unit/L Total Bilirubin 0.4 0.2 - 1.3 mg/dL Estimated GFR 61 >=60 mL/min/1.73 m?? Hemogram Result Value Ref Range WBC 5.5 4.0 - 9.5 x10(3)/mcL RBC 5.46 4.58 - 5.54 x10(6)/mcL Hemoglobin 15.9 13.7 - 16.5 g/dL Hematocrit 45.2 40.5 - 48.5 % MCV 82.8 (L) 82.9 - 93.1 fL MCH 29.1 27.5 - 32.1 pg MCHC 35.2 32.0 - 35.7 g/dL Platelets 49 (L) 145 - 357 x10(3)/mcL RDWSD 38.6 36.0 - 45.0 fL RDWCV 13.0 11.4 - 13.8 % MPV 12.5 7.6 - 12.9 fL nRBC % Auto 0.0 % nRBC Abs Auto 0.000 0.000 - 0.000 x10(3)/mcL Differential, Automated Result Value Ref Range Neutrophils % 54.9 % Neutr Abs (ANC) 3.03 1.70 - 6.10 x10(3)/mcL Lymphocytes % 33.6 % Lymphocytes Abs 1.9 0.9 - 3.2 x10(3)/mcL Monocytes % 8.5 % Monocyte Abs 0.5 0.3 - 0.9 x10(3)/mcL Eosinophils % 1.8 % Eosinophils Abs 0.1 0.0 - 0.4 x10(3)/mcL Basophils % 0.5 % Basophils Abs 0.0 0.0 - 0.1 x10(3)/mcL Immature Gran % 0.70 % Cheli Gran Abs 0.04 0.00 - 0.04 x10(3)/mcL Latest Reference Range & Units 09/06/22 14:58 Chol, Total mg/dL 191 HDL mg/dL 30 Chol/HDL Ratio ratio 6.4 Triglycerides mg/dL 409 LDL Cholesterol Not Calculated LDL Chol Direct mg/dL 112 Lipid Interpretation See Note Radiology/Studies: Second readings of CT Abd, MRI ---> umbilical and inguinal hernias Assessment/Plan: 52 y.o. y/o M with thrombocytopenia. [...] evidence of bleeding or complications postoperatively. #Hypertension Routine follow-up and healthcare maintenance since his pressure is elevated today Continue with routine exercise and weight control Plan No intervention for thrombocytopenia at this time Continue to monitor for any bleeding, bruising or petechiae Follow-up with Prasanna in 6 months for CBC to monitor platelets and then to see us in 9 months. Surgical appmt locally wt Dr Marilynn Hansen. I will forward Dr. Hansen my note. If, does need surgery, he could be at slight increased risk due to his thrombocytopenia. SHe may want to have platelets available beverage inspection machine tender should issues arise. I will also send my note to his new primary care physician, Dr. Ruperto Mims with f/u with PCP for BP control Consider checking H pylori in future Norma Garrido APRN Staff Addendum I have personally seen and evaluated the patient today with Melody Garrido CARDING DOUBLER. I also reviewed pertinent labs and radiographs. I reviewed plans with the patient with details of the palns outlined below. Plans were discussed on Rds with Melody Garrido APRN and are outlined in her note above. I have read this note and I concur. I will send this note to Dr Tyrone Rebolledo MD cigarette making machine operator Director - Blood and Marrow Transplant Program documented in this encounter Plan of Treatment Upcoming Encounters Date Type Department Care Team (Late st Contact Info) Description 01/28/2025 3:30 PM EDT Office [place] [address] Raza Glasgow MD [facility] [place] [address] documented as of this encounter Visit Diagnoses Diagnosis Idiopathic thrombocytopenic purpura Immune thrombocytopenic purpura documented in this encounter Care Teams Filter Tender Jelly Relationship Specialty Start Date End Date Marian Pierre MD [address] [place] [id number] PCP - General Family Medicine 08/15/22 documented as of this encounter
--- OUTSIDE RECORDS SUMMARY | 2024-10-27 11:26 | XMS_ITS | Encounter Summary ---
Author Organization [facility] [place] [address] Care Team Providers Care Vice President Of News Name Role Phone SanchoKurtis tello Primary Care Provider Reason for Visit * Reason Comments Follow-up Encounter Details Date Type Department Care Team (Latest Contact Info) Description 07/27/2021 9:30 AM EDT Office Visit Hematology [place] [address] Maikel Brooke MD [facility] [place] [address] Norma Garrido APRN [facility] [place] [address] Idiopathic thrombocytopenic purpura; Stage 1 chronic kidney disease; Thrombocytopenia Social History Tobacco Use Types Packs/Day [...] EDT Temperature 36.4 ??C (97.5 ??F) 07/27/2021 9 :21 AM EDT Respiratory Rate 07/27/2021 9:21 AM EDT Oxygen Saturation 98% 07/27/2021 9:2 1 AM EDT Inhaled Oxygen Concentration - - Weight 101.1 kg (222 lb 12. 8 oz) 07/27/2021 9:21 AM EDT with shoes Height 178.2 cm (5' 10.16) 07/27/2021 9:21 AM EDT with shoes Body Mass Index 31.83 07/27/2021 9:21 AM EDT documented in this encounter Progress Notes * Maikel Brooke MD - 07/27/2021 9:30 AM [...] 83K, Hgb: 17g/dL PT: 13.3, D.dimer:159 BUN/Sr.Cr: 25/11.40 Hep C antibody: negative. ?? Last CBC [...] haul syndrome including memory loss and fatigue. 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 He was first seen by us in October 2015. Since that time, his platelets are slowly decreasing withthe most recent to being 66-67,000 over the past 9 months. Prasanna reports that he had his right hip replaced in June 2020 in [place]. He has not had any abnormal bleeding bruising or petechiae. He does note an occasional bright red blood per rectum.Prasanna had a colonoscopy 3 years ago which was normal. No issues with early satiety or weight loss. Staying active at home. Prasanna just gave his notice at his current job and will be excepting a job closer to home which doesnot call for so much travel. He is [...] visit. 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 Family History: - Mother: was tested negative for PLT antigen 1; never had low plt count; - Father: htn, dlp - Siblings: brother and sister: both healthy; His sister also had low plt count at and was transfused; no issues now. Brother is a truck service technician at [employer]. 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 Physical Exam: Blood pressure 132/88, pulse 88, temperature 36.4 ??C (97.5 ??F), temperature source Temporal, resp. rate 22, height 178.2 cm (5' 10.16), weight [...] of the abdomen without any findings of splenomegaly EXTREMITIES: No edema, cyanosis or clubbing. SKIN: [...] review spleen. It is 15.7 [address] [facility] scan Assessment/Plan: 50 y/o M [...] recent right total hip replacement without any eviden ce of bleeding or complications postoperatively. I emphasized [...] 3:30 PM EDT Office [place] [phone] Raza Glasgow MD [facility] [place] [address] documented as of this encounter Results * Comprehensive metabolic panel (non-fasting) (01/25/2022 9:12 AM EDT) Glucose 77 65 - 199 mg/dL [facility] Comment:Diabetes: >=200 mg/d L plus symptoms Blood Urea Nitrogen 18 10 - 20 mg/dL [facility] Creatinine 1.32 0.80 - 1.50 mg/dL [facility] Sodium 139 135 - 145 mmol/L [facility] Potassium 4.1 3.5 - 5.0 mmol/L [facility] Comment: Please note: ??Patients with WBC >100,000 may have falsely elevated Potassium levels. ??For accurate Potassium quantification in these patients send serum separator tube (gold top) for subsequent determinations. ??Contact the Clinical Chemistry Laboratory if there are any questions. Chloride 103 98 - 107 mmol/L [facility] Carbon Dioxide 27 22 - 31 mmol/L [facility] Anion Gap 9 5 - 15 mmol/L [facility] Calcium 9.3 8.5 - 10.5 mg/dL [facility] Protein, Total 7.3 6.1 - 8.0 g/dL [facility] Albumin 4.8 3.2 - 5.2 g/dL [facility] Aspartate Aminotransferase 21 0 - 39 unit/L [facility] Alanine Aminotransferase 41 0 - 55 unit/L [facility] Alkaline Phosphatase 86 40 - 130 unit/L [facility] Bilirubin, Total 0.4 0.2 - 1.3 mg/dL [facility] Est Glomerular Filtration Rate 63 >=60 mL/min/1. 73 m?? [facility] [...] In Lab Maikel Brooke MD CHEMISTRY ORDERABLES [facility] [place] [address] documented in this encounter Visit Diagnoses Diagnosis Idiopathic thrombocytopenic purpura Immune thrombocytopenic purpura Stage 1 chronic kidney disease Thrombocytopenia Thrombocytopenia, unspecified documented in this encounter Care Teams Vice President Of News Relationship Specialty Start Date End Date Kurtis Kingsley DO [address] [place] [address] PCP - General 09/27/10 03/22/22 documented as of this encounter
--- OUTSIDE RECORDS SUMMARY | 2024-10-27 11:26 | XMS_ITS | Encounter Summary ---
Author Organization [facility]ly [facility] Address [facility] [place] [address] Care Team Providers Care A Operator Name Role Phone Ruperto Shultz APRN Primary Care Provider [phone] Reason for Visit * (Routine) - Closed Specialty Diagnoses / Procedures Referred By Contshady t Referred To Contact Radiology Diagnoses Abdominal pain, unspecified abdominal location Procedures Request For 2nd Read CT Abdomen & Pelvis Reginald Hansen MD [address] [place] [address] Referral ID Status Reason Start Date Expiration Date Visits Re quested Visits Authorized [id number] Closed 06/27/2022 06/27/2023 1 1 Encounter Details Date Type Department Care Team (Latest Contact Info) Description 06/27/2022 4:55 PM EDT Ancillary Procedure Radiology Library at [facility] [place] [address] Reginald Hansen MD [address] [place], [place] [id number] Abdominal pain, unspecified abdominal location Social History Tobacco Use Types Packs/Day Years [...] PM EDT Office [place] [address] Raza Glasgow MD [facility] [place] [address] documented as of this encounter Procedures Procedure Name Priority Date/Time Associated Diagnosis Comments REQUEST FOR 2ND READ CT ABDOMEN AND PELVIS Routine 06/27/2022 4:51 PM EDT Abdominal pain, unspecified abdominal location documented in this encounter Results * Request For 2nd Read CT Abdomen & Pelvis (06/27/2022 4:51 PM EDT) Anatomical Region Laterality Modality Abdomen, Pelvis SO Impressions 06/28/2022 11:43 AM EDT 1. ??Tiny fat-containing umbilical hernia and small bilateral fat-containing inguinal hernias. No spigelian hernia. 2. ??Stable lobular lesion in the left hepatic lobe over a 4 year interval consistent with benign finding. This is most likely hemangioma. 3. ??Indeterminate sclerotic lesion in the left ilium is very likely benign given the stability and lack of aggressive features on the interval MRI. 4. ??Splenomegaly of [...] have questions please contact the health animal caretaker that requested your imaging first. ? Electronically signed by: Kacie Nelson MD, [facility] ([phone]), at 06/28/2022 11:43 AM Narrative 06/28/2022 11:43 AM EDT EXAMINATION: REQUEST FOR 2ND READ CT ABDOMEN AND PELVIS CLINICAL HISTORY: SPIGELIAN AND RLQ HERNIA; Sending Institution [facility]; Date of exam [id number]; I believe a reinterpretation of this exam may alter care of Patient. Yes COMPARISON: CT abdomen and pelvis 01/01/2018. MRI pelvis 04/07/2020 TECHNIQUE: Axial sagittal and coronal images from an oral and IV contrast enhanced CT scan of the abdomen and pelvis dated 06/06/2022 are submitted from [facility]. FINDINGS: Lower chest: Normal. Liver: Liver measures 21 cm in craniocaudal dimension and 66 Hounsfield units. 1.8 x 2.5 cm low attenuating focus in the left lobe with possible peripheral nodular enhancement (series 6 image 61) is stable since CT 01/01/2018. 2 Subcentimeter hypoattenuating simple cysts are unchanged. Widely patent hepatic and portal veins. Bile ducts: Nondilated. Gallbladder: No calcified gallstones. Normal caliber wall. Pancreas: Normal attenuation without ductal dilatation. Spleen: Enlarged to 17 cm. No focal lesions. Patent splenic vein. Adrenals: Normal. Kidneys: Left kidney is normal. Punctate low-attenuation lesion in the right kidney too small to characterize but favored to be a cyst. No hydronephrosis or urolithiasis. Urinary Bladder: Normal. Vasculature: No aneurysm. The celiac, mesenteric and renal arteries are patent. Scattered atherosclerotic calcifications of the internal iliac arteries. Lymph Nodes: No pathologically enlarged lymph nodes. Bowel: Nondilated, no wall thickening. Normal appendix. Peritoneum and mesentery: No ascites, free air, or loculated fluid collection. No mesenteric inflammation. Abdominal wall: Tiny fat-containing umbilical hernia. Small bilateral fat-containing inguinal hernias. No spigelian hernia identified. Reproductive organs: Normal. Osseous structures: No suspicious lesions. Right total hip arthroplasty. ??A 15 mm faintly sclerotic lesion in the left ilium is unchanged since 2018. No bone marrow edema was seen in this region on the interval MRI. Procedure Note Kacie Nelson MD - 06/28/2022 EXAMINATION: REQUEST FOR 2ND READ CT ABDOMEN AND PELVIS CLINICAL HISTORY: SPIGELIAN AND RLQ HERNIA; Sending Institution [facility]; Dateof exam [id number]; I believe a reinterpretation of this exam may alter careof Patient. Yes COMPARISON: CT abdomen and pelvis 01/01/2018. MRI pelvis 04/07/2020 TECHNIQUE: Axial sagittal and coronal images from an oral and IVcontrast enhanced CT scan of the abdomen and pelvis dated 06/06/2022 are submittedfrom [facility]. FINDINGS: Lower chest: Normal. Liver: Liver measures 21 cm in craniocaudal dimension and 66 Hounsfieldunits. 1.8 x 2.5 cm low attenuating focus in the left lobe with possibleperipheral nodular enhancement (series 6 image 61) is stable since CT 01/01/2018. 2 Subcentimeter hypoattenuating simple cysts are unchanged. Widely patenthepatic and portal veins. Bile ducts: Nondilated. Gallbladder: No calcified gallstones. Normal caliber wall. Pancreas: Normal attenuation without ductal dilatation. Spleen: Enlarged to 17 cm. No focal lesions. Patent splenic vein. Adrenals: Normal. Kidneys: Left kidney is normal. Punctate low-attenuation lesion in theright kidney too small to characterize but favored to be a cyst. Nohydronephrosis or urolithiasis. Urinary Bladder: Normal. Vasculature: No aneurysm. The celiac, mesenteric and renal arteries arepatent. Scattered atherosclerotic calcifications of the internal iliac arteries. Lymph Nodes: No pathologically enlarged lymph nodes. Bowel: Nondilated, no wall thickening. Normal appendix. Peritoneum and mesentery: No ascites, free air, or loculated fluidcollection. No mesenteric inflammation. Abdominal wall: Tiny fat-containing umbilical hernia. Small bilateral fat-containing inguinal hernias. No spigelian hernia identified. Reproductive organs: Normal. Osseous structures: No suspicious lesions. Right total hip arthroplasty.A 15 mm faintly sclerotic lesion in the left ilium is unchanged since 2018. [place] marrow edema was seen in this region on the interval MRI. IMPRESSION 1. Tiny fat-containing umbilical hernia and small bilateralfat-containing inguinal hernias. No spigelian hernia. 2. Stable lobular lesion in the left hepatic lobe over a 4 yearinterval consistent with benign finding. This is most likely hemangioma. 3. Indeterminate sclerotic lesion in the left ilium is very likely benigngiven the stability and lack of aggressive features on the interval MRI. 4. Splenomegaly of uncertain etiology and significance. 5. Hepatic steatosis. I have personally reviewed the image(s) and the resident's interpretationand agree with the findings, Kacie Nelson MD at 06/28/2022 11:43 AM Thank you for letting us participate in the care of this patient. If youare a health care provider and have any questions regarding this report,please contact the number below. For patients who have questions please contactthe health animal caretaker that requested your imaging first. Electronically signed by: Kacie Nelson MD, [facility]([phone]), at 06/28/2022 11:43 AM Reginald Barber MD IMG OUTSIDE I NTERPRETATION ORDERABLES documented in this encounter Visit Diagnoses Diagnosis Abdominal pain, unspecified abdominal location documented in this encounter Care Teams A Operator Relationship Specialty Start Date End Date Ruperto Shultz APRN [address] [place] [address] PCP - General Family Medicine 03/23/22 08/14/22 documented as of this encounter
--- OUTSIDE RECORDS SUMMARY | 2024-10-27 11:26 | XMS_ITS | Encounter Summary ---
[place] [address] Care Team Providers Care Calender Let Off Operator Name Role Phone Kurtis Kingsley DO Primary Care Provider [phone] Reason for Visit * Reason Onset Date Comments Follow-up 01/05/2021 Encounter Details Date Type Department Care Team (Late st Contact Info) Description 01/05/2021 Telephone Hematology [place] [phone] Sherly Bateman, RN Follow-up Social History Tobacco [...] Telephone Encounter - Sherly Bateman RN - 01/05/2021 11:25 AM EST F/U call to pt: Spoke to Prasanna to reassure him that there were no contraindications to monoclonal antibody treatment if that is what his PCP recommends. He [...] PM EDT Office Visit [place] [address] Raza Glasgow MD [facility] [place] [address] documented as of this encounter Visit Diagnoses Not on filedocumented in this encounter Care Teams Calender Let Off Operator Relationship Specialty Start Date End Date Kurtis Kingsley DO [address] [place] [address] PCP - General 09/27/10 03/22/22 documented as of this encounter
--- OUTSIDE RECORDS SUMMARY | 2024-10-27 11:26 | XMS_ITS | Encounter Summary ---
[place] [address] Care Team Providers Care Administration Intern Name Role Phone Kurtis Kingsley DO Primary Care Provider [phone] Encounter Details Date Type Department Care Team (Latest Contact Info) Description 07/27/2021 8:15 AM EDT - 07/27/2021 11:59 PM EDT Hospital Encounter Hematology [place] [address] Idiopathic thrombocytopenic purpura Discharge Disposition: Home Social [...] 3:30 PM EDT Office [place] [address] Raza Glasgow MD [facility] [place] [address] documented as of this encounter Procedures Procedure Name Priority Date/Time Associated Diagnosis Comments HEMOGRAM STAT 07/27/2021 8:24 AM EDT Idiopathic thrombocytopenic purpura DIFFERENTIAL, AUTOMATED STAT 07/27/2021 8:24 AM EDT Idiopathic thrombocytopenic purpura HC VENIPUNCTURE STAT 07/27/2021 8:24 AM EDT Idiopathic thrombocytopenic purpura COMPREHENSIVE METABOLIC PANEL STAT 07/27/2021 8:24 AM EDT Idiopathic thrombocytopenic purpura documented in this encounter Results * (ABNORMAL) Differential, Automated (07/27/2021 8:24 AM EDT) Neutrophil % 44.3 % [facility] Neutrophil Absolute 2.43 1.70 - 6.10 x10(3)/mc L [facility] Lymph % 43.0 % [facility] Lymphocytes Abs 2.4 0.9 - 3.2 x10(3)/mc L [facility] Monocyte % 8.9 % [facility] Monocyte Abs 0.5 0.3 - 0.9 x10(3)/mc L [facility] Eos % 2.0 % [facility] Eosinophils Abs 0.1 0.0 - 0.4 x10(3)/mc L [facility] Basophil % 0.7 % [facility] Baso Absolute 0.0 0.0 - 0.1 x10(3)/mc L [facility] Immature Gran % 1.10 % [facility] Comment: Immature granulocytes(IG's)percentage and absolute count will include metamyelocytes, myelocytes, and promyelocytes. Blood smears from CBCs yielding IG's will be scanned manually for concordance. If this scan disagrees with the automated IG or if promyelocytes are noted, a manual differential will be performed. Immature Gran Absolute 0.06(H) 0.00 - 0.04 x10(3)/mc L [facility] Blood 07/27/2021 8:24 AM EDT 07/27/2021 8:32 AM EDT Narrative Resulting Agency Comment Spec In Lab Norma Quarles Hema [facility] ORDERAB LES [facility] [place] [address] * (ABNORMAL) Hemogram (07/27/2021 8:24 AM EDT) White Blood Cell 5.5 4.0 - 9.5 x10(3)/mc L [facility] Red Blood Cell 5.59(H) 4.58 - 5.54 x10(6)/mc L [facility] Hemoglobin 16.0 13.7 - 16.5 gm/dL [facility] Hematocrit 46.4 40.5 - 48.5 % [facility] Mean Cell Volume 83.0 82.9 - 93.1 fL [facility] Mean Cell Hemoglobin 28.6 27.5 - 32.1 pg [facility] Mean Cell Hemoglobin Concentration 34.5 32.0 - 35.7 gm/dL [facility] Platelet 59(L) 145 - 357 x10(3)/mc L [facility] RDW Standard Deviation 38.5 36.0 - 45.0 fL [facility] RDW coefficient of variation 12.8 11.4 - 13.8 % [facility] Mean Platelet Volume 11.4 7.6 - 12.9 fL [facility] NRBC% auto 0.0 % [facility] NRBC Absolute 0.000 0.000 - 0.000 x10(3)/mc L [facility] Blood 07/27/2021 8:24 AM EDT 07/27/2021 8:32 AM EDT Narrative Resulting Agency Comment Spec In Lab Norma Garrido [facility] [place] [address] * Comprehensive metabolic panel (non-fasting) (07/27/2021 8:24 AM EDT) Glucose 102 65 - 199 mg/dL [facility] Comment:Diabetes: >=200 mg/d L plus symptoms Blood Urea Nitrogen 20 10 - 20 mg/dL [facility] Creatinine 1.15 0.80 - 1.50 mg/dL [facility] Sodium 138 135 - 145 mmol/L [facility] Potassium 4.4 3.5 - 5.0 mmol/L [facility] Comment: Please note: ??Patients with WBC >100,000 may have falsely elevated Potassium levels. ??For accurate Potassium quantification in these patients send serum separator tube (gold top) for subsequent determinations. ??Contact the Clinical Chemistry Laboratory if there are any questions. Chloride 100 98 - 107 mmol/L [facility] Carbon Dioxide 27 22 - 31 mmol/L [facility] Anion Gap 11 5 - 15 mmol/L [facility] Calcium 9.4 8.5 - 10.5 mg/dL [facility] Protein, Total 7.3 6.1 - 8.0 gm/dL [facility] Albumin 4.7 3.2 - 5.2 gm/dL [facility] Aspartate Aminotransferase 17 0 - 39 unit/L [facility] Alanine Aminotransferase 33 0 - 55 unit/L [facility] Alkaline Phosphatase 84 40 - 130 unit/L [facility] Bilirubin, Total 0.5 0.2 - 1.3 mg/dL [facility] Est Glomerular Filtration Rate 75 >=60 mL/min/1. 73 m?? [facility] Comment: This patient? s [...] Agency Comment Spec In Lab Norma Garrido [facility] ES Performing Organization Address City/State/[facility] Co de Phone Number [facility] [place] [address] documented in this encounter Visit Diagnoses Diagnosis Idiopathic thrombocytopenic purpura Immune thrombocytopenic purpura documented in this encounter Care Teams Administration Intern Relationship Specialty Start Date End Date Kurtis Kingsley DO [address] [place] [address] PCP - General 09/27/10 03/22/22 documented as of this encounter
--- OUTSIDE RECORDS SUMMARY | 2024-10-27 11:26 | XMS_ITS | Encounter Summary ---
[place] [address] Care Team Providers Care Contact Center Assistant Name Role Phone Marian Pierre MD Primary Care Provider [phone] Reason for Visit * Reason Onset Date Comments Prior Authorization 09/01/2022 albuteroL 90 mcg/actuation HFA Aerosol Inhaler Encounter Details Date Type Department Care Team (Late st Contact Info) Description 09/01/2022 [place] [address] Juanito Pickett CMA Prior Authorization (albuteroL 90 mcg/actuation HFA Aerosol Inhaler) Social History Tobacco [...] Encounter - Harmony Dumont CMA - 09/01/2022 3:19 PM EDT Images from the original note were not included. * Telephone Encounter - Juanito Pickett CMA - 09/01/2022 2:15 PM EDT PA submitted. Awaiting response from insurance. * Telephone Encounter - Juanito Pickett CMA - 09/01/2022 2:09 PM EDT Medication Prior Authorization Request received via: CM Patient: Prasanna Shipman Patient : 1970 Insurance Company: [place] Medicaid Sent via: [facility] [place]: [id number] Physician: Taurus Velásquez MD Medication Requested: albuteroL 90 mcg/actuation HFA Aerosol Inhaler Frequency/Sig: Inhale 2 puffs into the lungs every 4 hours as needed for Wheezing. Use with spacer Disp: 1 each Refills: 3 Currently taking: yes If yes, how lon Diagnosis for this medication: Moderate persistent asthma, uncomplicated (J45.40) Post-viral cough syndrome (R05.8) Prior medications trialed in this patient: Medication: Symbicort Approx Dates: 07/2022-current Outcome/Adverse Reactions: Inadequate response Additional Notes: documented in this encounter Plan of Treatment Upcoming Encounters Date Type Department Care Team (Late st Contact Info) Description 01/28/2025 3:30 PM EDT Office [place] [address] Raza Glasgow MD [facility] [place] [address] documented as of this encounter Visit Diagnoses Not on filedocumented in this encounter Care Teams Contact Center Assistant Relationship Specialty Start Date End Date Marian Pierre MD [address] [place] [address] PCP - General Family Medicine 08/15/22 documented as of this encounter
--- OUTSIDE RECORDS SUMMARY | 2024-10-27 11:26 | XMS_ITS | Encounter Summary ---
Author Organization [facility] [place] [address] Care Team Providers Care Filing And Polishing Supervisor Name Role Phone Sancho Kurtis PIERRE Primary Care Provider Reason for Visit * Reason Comments Right Hip Pain Right hip LT MRI 05/04/20 - 2nd opinion * Consultation (Routine) - Closed Specialty Diagnoses / Procedures Referred By Den tamayo Referred To Contact Orthopaedics Diagnoses Right hip Anterior superior labrum-torn at attachment, Remy Taylor MD [address] [place] [address] Christian Iyer MD [facility] [address] [place] [address] Referral ID Status Reason Start Date Expiration Date V isits Requested Visits Authorized [id number] Closed Consult, Test & Treat Connection Center PCP Updated and/or Approved 04/28/2020 04/28/2021 1 1 Encounter Details Date Type Department Care Team (Late st Contact Info) Description 05/25/2020 11:00 AM EDT Office [place] [phone] Christian Iyer MD [facility] [place] [address] Right buttock pain Social History Tobacco Use Types Packs/Day Years [...] documented in this encounter Progress Notes * Christian Iyer MD - 05/25/2020 11:00 AM [...] resolved and then the right side began essentially at the same time. No significant trauma to the right side. He returned to Dr. Roger had a work-up for spine issues had an SI joint work-up [...] of external rotation. He does get some pinchingwith flexion adduction internal rotation, however this does [...] 3:30 PM EDT Office [place] [address] Raza Glasgow MD [facility] [place] [address] documented as of this encounter Visit Diagnoses Diagnosis Right buttock pain Mylagia and myositis, unspecified documented in this encounter Care Teams Filing And Polishing Supervisor Relationship Specialty Start Date End Date Kurtis Kingsley DO [address] [place] [address] PCP - General 09/27/10 03/22/22 documented as of this encounter
--- OUTSIDE RECORDS SUMMARY | 2024-10-27 11:26 | XMS_ITS | Encounter Summary ---
Author [facility] [place] [address] Care Team Providers Care Subway Guard Name Role Phone Sancho Kurtis PIERRE Primary Care Provider Reason for Visit * Reason Comments Follow-up Encounter Details Date Type Department Care Team (Latest Contact Info) Description 04/14/2020 9:30 AM EDT Office Visit Hematology [place] [address] [facility] [address] [place]EMATOLOGY [place] [address] [facility] [address] [place]EMATOLOGY [place] [address] Idiopathic thrombocytopenic purpura; Stage 1 chronic kidney [...] 36.3 ??C (97.3 ??F) 04/14/2020 9:25 AM ED T Respiratory Rate 18 04/14/2020 9:25 AM EDT Oxygen Saturation 98% 04/14/2020 9:25 AM EDT Inhaled Oxygen Concentration - - Weight 97.8 kg (215 lb 9.6 oz) 04/14/2020 9:25 A M EDT Height 176 cm (5' 9.29) 04/14/2020 9:25 AM EDT Body Mass Index 31.57 04/14/2020 9:25 AM EDT documented in this encounter Progress Notes * Maikel Brooke MD - 04/14/2020 9:30 AM [...] in the next few months locally at [place]. No issues with bleeding or excessive bruising [...] to visit. 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 Family History: - Mother: was tested negative for PLT antigen 1; never had low plt count; - Father: htn, dlp - Siblings: brother and sister: both healthy; His sister also had low plt count at and was transfused; no issues now. Brother is a pet care attendant at [employer]. 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 Physical Exam: There were no vitals taken for this visit. Blood pressure 135/87, pulse 77, temperature 36.3 ??C (97.3 ??F), temperature source Temporal, resp. rate 18, height 176 cm (5' 9.29), weight 97.8 kg (215 lb 9.6 oz), SpO2 98 %. GENERAL: Patient appears well and is in no acute distress. HEENT: NCAT . EOMI, PERRLA; anicteric, No conjunctival injection Sinuses non- tender. Oral pharynx is clear without erythema or exudate. NECK: Supple and [...] review spleen. It is 15.7 cm from [facility] CT scan Assessment/Plan: 49 [...] surgeries in the past as noted above withoutany evidence of bleeding. Today, notes that he may may be having some sort of hip surgery in the near future at [facility]. This will be with Remy Taylor MD - ortho at [facility]. I will send my note to the orthopedic surgeon. I amalso happy to call to talk with the [...] we are uncertain of the exact cause at this point. I emphasized we do not pursue a work-up biopsy of the spleen due to increased risk ofbleeding and we will not treat at this point anyway since his counts are stable. Of course, if there is a change in his clinical course his platelets continue to drop, then we will have to pursue CATscans and possible biopsy of any abnormalities. -Prasanna will call in the interim with any clinical concerns including bleeding, bruising, petechiae -Follow-up in 6 months sooner with any clinical changes -I will send this note to Dr. Remy Taylor MD - ortho at [facility] MAIKEL BROOKE MD Hematology and Oncology ===== documented in this encounter Plan of Treatment Upcoming Encounters Date Type Department Care Team (Late st Contact Info) Description 01/28/2025 3:30 PM EDT Office Visit [place] [address] [facility] [place] [address] documented as of this encounter Procedures Procedure Name Priority Date/Time Associated Diagnosis Comments GREEN TUBE HOLD Routine 04/14/2020 8:11 AM EDT HC VENIPUNCTURE STAT 04/14/2020 8:11 AM EDT Idiopathic thrombocytopenic purpura Stage 1 chronic kidney disease documented in this encounter Results * Comprehensive metabolic panel (non-fasting) (10/13/2020 8:34 AM EST) Glucose 97 65 - 199 mg/dL [facility] Comment:Diabetes: >=200 mg/d L plus symptoms Blood Urea Nitrogen 17 10 - 20 mg/dL [facility] Creatinine 1.06 0.80 - 1.50 mg/dL [facility] Sodium 140 135 - [...] [facility] Anion Gap 10 5 - 15 mmol/L [facility] Calcium 9.5 8.5 - 10.5 mg/dL [facility] Protein, Total 7.1 6.1 - 8.0 gm/dL [facility] Albumin 4.6 3.2 - 5.2 gm/dL [facility] Aspartate Aminotransferase 32 0 - 39 unit/L [facility] Alanine Aminotransferase 41 0 - 55 unit/L [facility] Alkaline Phosphatase 86 40 - 130 unit/L [facility] Bilirubin, Total 0.5 0.2 - 1.3 mg/dL [facility] Est Glomerular Filtration Rate 83 >=60 mL/min/1. 73 m?? [facility] Comment: This patient? s estimated glomerular filtration rate (eGFR) is between 83 mL/min/1.73 m2 (patients with less muscle mass per kg body weight) and 96 mL/min/1.73 m2 (patients with more muscle mass [...] and symptoms in addition to eGFR. Blood specimen (specimen) 10/13/2020 8:34 AM EST 10/13/2020 8:42 AM EST Narrative Resulting Agency Comment Spec In Lab Maikel Brooke MD CHEMISTRY ORDERABLES [facility] [place] [address] * Green Tube HOLD (04/14/2020 8:11 AM EDT) Pathologist [facility] Green Hold Sample in lab. [facility] Blood specimen (specimen) No Charge / Unknown 04/14/2020 8:11 AM EDT 04/14/2020 8:24 AM EDT Maikel Brooke MD CHEMISTRY ORDERABLES Performing Organization Address [facility] Co de Phone Number [facility] [place] [address] * (ABNORMAL) Comprehensive metabolic panel (non-fasting) (04/14/2020 8:11 AM EDT) [facility] Glucose 93 65 - 199 mg/dL [facility] Comment:Diabetes: >=200 mg/d L plus symptoms Blood Urea Nitrogen 25(H) 10 - 20 mg/dL [facility] Creatinine 1.19 0.80 - 1.50 mg/dL [facility] Sodium 136 135 - 145 mmol/L [facility] Potassium 3.8 3.5 - 5.0 mmol/L [facility] Comment: Please note: ??Patients with WBC >100,000 may have falsely elevated Potassium levels. ??For accurate Potassium quantification in these patients send serum separator tube (gold top) for subsequent determinations. ??Contact the Clinical Chemistry Laboratory if there are any questions. Chloride 99 98 - 107 mmol/L [facility] Carbon Dioxide 25 22 - 31 mmol/L [facility] Anion Gap 12 5 - 15 mmol/L [facility] Calcium 8.8 8.5 - 10.5 mg/dL [facility] Protein, Total 6.9 6.1 - 8.0 gm/dL [facility] Albumin 4.3 3.2 - 5.2 gm/dL [facility] Aspartate Aminotransferase 17 0 - 39 unit/L [facility] Alanine Aminotransferase 42 0 - 55 unit/L [facility] Alkaline Phosphatase 75 40 - 130 unit/L [facility] Bilirubin, Total 0.4 0.2 - 1.3 mg/dL [facility] Est Glomerular Filtration Rate 72 >=60 mL/min/1. 73 m?? [facility] Comment: The eGFR was calculated using the CKD-EPI equation. As with all creatinine based estimates of kidney function, eGFR values calculated with the CKD-EPI equation are not accurate in patients with acute kidney failure, extremes of body mass or the acutely ill. [email or web address] IDABELnkf eGFR 84 >=60 mL/min/1. 73 m?? [facility] Comment: The eGFR was calculated using the CKD-EPI equation. As with all creatinine based estimates of kidney function, eGFR values calculated with the CKD-EPI equation are not accurate in patients with acute kidney failure, extremes of body mass or the acutely ill. [email or web address] IDABELnkf Blood specimen (specimen) 04/14/2020 8:11 AM EDT 04/14/2020 9:02 AM EDT Narrative Resulting Agency Comment Spec In Lab Norma Garrido APRN CHEMISTRY ORDERABL ES [facility] [place] [address] documented in this encounter Visit Diagnoses Diagnosis Idiopathic thrombocytopenic purpura Immune thrombocytopenic purpura Stage 1 chronic kidney disease documented in this encounter Care Teams Subway Guard Relationship Specialty Start Date End Date Kurtis Kingsley DO [address] [place] [address] PCP - General 09/27/10 03/22/22 documented as of this encounter
--- OUTSIDE RECORDS SUMMARY | 2024-10-27 11:26 | XMS_ITS | Encounter Summary ---
[place] [address] Care Team Providers Care Cloth Checker Name Role Phone Marian Pierre MD Primary Care Provider [phone] Reason for Visit * Reason Onset Date Comments Medication Refill 09/01/2022 Encounter Details Date Type Department Care Team (Late st Contact Info) Description 09/01/2022 [place] [phone] Makenzie Solomon RN Moderate persistent asthma, uncomplicated; Post-viral cough syndrome Social History Tobacco Use Types Packs/Day Years [...] Telephone Encounter - Makenzie Solomon RN - 09/01/2022 3:39 PM EDT Rec'd notification from [facility] Primary Care Char Conveyor Tender Cellar that PA was needed for budesonide-formoterol and Albuterol. Preferred brand name Symbicort and Ventolin HFA. New provider needed as [place] Medicaid does not recognize Dr. Velásquez as a contracted provider. documented in this encounter Plan of Treatment Upcoming Encounters Date Type Department Care Team (Late st Contact Info) Description 01/28/2025 3:30 PM EDT Office [place] [address] Raza Glasgow MD [facility] [place] [address] documented as of this encounter Visit Diagnoses Diagnosis Moderate persistent asthma, uncomplicated Unspecified asthma Post-viral cough syndrome Cough documented in this encounter Care Teams Cloth Checker Relationship Specialty Start Date End Date Marian Pierre MD [address] [place] [address] PCP - General Family Medicine 08/15/22 documented as of this encounter
--- OUTSIDE RECORDS SUMMARY | 2024-10-27 11:26 | XMS_ITS | Encounter Summary ---
Author Organization [facility] [place] [address] Care Team Providers Care Dental Hygiene Teacher Name Role Phone SanchoKurtis mcdaniel Primary Care Provider Encounter Details Date Type Department Care Team (Late st Contact Info) Description 06/11/2020 Ancillary Procedure Radiology Library at [facility] [place] [phone] Ruperto Shultz, RIB BENDER [address] [place], [place] [address] Social History Tobacco Use Types Packs/Day Years [...] 3:30 PM EDT Office Visit Otolaryngology at [facility] [place] [phone] Raza Glasgow MD [facility] [place]ARY[place] [address] documented as of this encounter Procedures Procedure Name Priority Date/Time Associated Diagnosis Comments FILM LIBRARY STORAGE ONLY DX SHOULDER Routine 06/11/2020 12:00 AM EDT documented in this encounter Results * Film Library- Storage Only DX Shoulder (06/11/2020 12:00 AM EDT) Narrative LEVI ANGELES - 06/27/2022 3:53 PM EDT This exam is auto-finalizing. It's purpose is for storage only. Ruperto Shultz APRN IMG FILM LIBRARY O RDERABLES Performing Organization Address City/State/[facility] Co de Phone Number [place], [place] documented in this encounter Visit Diagnoses Not on filedocumented in this encounter Care Teams Dental Hygiene Teacher Relationship Specialty Start Date End Date Kurtis Kingsley DO [address] [place] [address] PCP - General 09/27/10 03/22/22 documented as of this encounter
--- OUTSIDE RECORDS SUMMARY | 2024-10-27 11:26 | XMS_ITS | Encounter Summary ---
Author Organization [facility] [place] [address] Care Team Providers Care Compliance Technician Name Role Phone Ruperto Shultz SWATHI Primary Care Provider [phone] Encounter Details Date Type Department Care Team (Late st Contact Info) Description 07/06/2022 Ancillary Procedure Radiology Library at [facility] [place] [phone] Reginald Hansen MD [address] [place], [place] [id number] Social History Tobacco Use Types Packs/Day Years [...] EDT Office Visit Otolaryngology at [facility] [place] [phone] Raza Glasgow MD [facility] [place] [address] documented as of this encounter Procedures Procedure Name Priority Date/Time Associated Diagnosis Comments FILM LIBRARY STORAGE ONLY MR ABDOMEN Routine 07/06/2022 12:00 AM EDT documented in this encounter Results * Film Library- Storage Only MR Abdomen (07/06/2022 12:00 AM EDT) Narrative RAD - 07/11/2022 3:32 PM EDT This exam is auto-finalizing. It's purpose is for storage only. Reginald Barber MD IMG FILM LIBR FABRIZIO ORDERABLES [place], [place] documented in this encounter Visit Diagnoses Not on filedocumented in this encounter Care Teams Compliance Technician Relationship Specialty Start Date End Date Ruperto Shultz, CAN FILLING MACHINE OPERATOR [address] [place] [address] PCP - General Family Medicine 03/23/22 08/14/22 documented as of this encounter
--- OUTSIDE RECORDS SUMMARY | 2024-10-27 11:26 | XMS_ITS | Encounter Summary ---
Author Organization [facility] [place] [address] Care Team Providers Care Lipcoat Sprayer Name Role Phone Sancho Kurtis PIERRE Primary Care Provider [phone] Reason for Visit * Reason Comments Follow-up Encounter Details Date Type Department Care Team (Latest Contact Info) Description 10/13/2020 9:30 AM EST Office Visit [place] [address] Maikel Rebolledo MD [facility] [address] [place] [address] Norma Alejandra APRN [facility] [address] [place] [address] Cami David DO Idiopathic thrombocytopenic purpura Social History Tobacco Use [...] 35.4 ??C (95.7 ??F) 10/13/2020 9:13 AM ES T Respiratory Rate 20 10/13/2020 9:13 AM EST Oxygen Saturation 97% 10/13/2020 9:13 AM EST Inhaled Oxygen Concentration - - Weight 98 kg (216 lb) 10/13/2020 9:13 AM EST Height 176.6 cm (5' 9.53) 10/13/2020 9:13 AM ES T Body Mass Index 31.41 10/13/2020 9:13 AM EST documented in this encounter Progress Notes * Norma Alejandra APRN - 10/13/2020 9:30 AM EST Images from [...] his right hip replaced in June in [place]. He continues on physical therapy to try [...] visit. 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 Family History: - Mother: was tested negative for PLT antigen 1; never had low plt count; - Father: htn, dlp - Siblings: brother and sister: both healthy; His sister also had low plt count at and was transfused; no issues now. Brother is a change number operator at [employer]. No FH of ITP or other hematological [...] It is 15.7 cm from [facility] CT scan Assessment/Plan: 50 y/o M [...] 3:30 PM EDT Office [place] [address] Raza Glasgow MD [facility] [place] [address] documented as of this encounter Visit Diagnoses Diagnosis Idiopathic thrombocytopenic purpura Immune thrombocytopenic purpura documented in this encounter Care Teams Lipcoat Sprayer Relationship Specialty Start Date End Date Kurtis Kingsley DO [address] [place] [address] PCP - General 09/27/10 03/22/22 documented as of this encounter
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
--- OUTSIDE RECORDS SUMMARY | 2024-10-27 11:26 | XMS_ITS | Encounter Summary ---
[place] [address] Care Team Providers Care Heating Equipment Repairer Name Role Phone Lexii Ruperto Packer APRN Primary Care Provider [phone] Encounter Details Date Type Department Care Team (Latest Contact Info) Description 03/23/2022 7:47 AM EDT - 03/23/2022 11:59 PM EDT Hospital Encounter Hematology [place] [address] Idiopathic thrombocytopenic purpura Discharge Disposition: Home Social [...] 3:30 PM EDT Office [place] [address] Raza Glasgow MD [facility] [place] [address] documented as of this encounter Procedures Procedure Name Priority Date/Time Associated Diagnosis Comments HEMOGRAM STAT 03/23/2022 7:54 AM EDT Idiopathic thrombocytopenic purpura DIFFERENTIAL, AUTOMATED STAT 03/23/2022 7:54 AM EDT Idiopathic thrombocytopenic purpura HC VENIPUNCTURE STAT 03/23/2022 7:54 AM EDT Idiopathic thrombocytopenic purpura COMPREHENSIVE METABOLIC PANEL STAT 03/23/2022 7:54 AM EDT Idiopathic thrombocytopenic purpura documented in this encounter Results * Differential, Automated (03/23/2022 7:54 AM EDT) Neutrophil % 47.3 % [facility] Neutrophil Absolute 2.50 1.70 - 6.10 x10(3)/[facility] Lymph % 42.3 % [facility] Lymphocytes Abs 2.2 0.9 - 3.2 x10(3)/[facility] Monocyte % 6.8 % [facility] Monocyte Abs 0.4 0.3 - 0.9 x10(3)/[facility] Eos % 2.1 % [facility] Eosinophils Abs 0.1 0.0 - 0.4 x10(3)/[facility] Basophil % 0.9 % [facility] Baso Absolute 0.0 0.0 - 0.1 x10(3)/[facility] Immature Gran % 0.60 % [facility] Comment: Immature granulocytes(IG's)percentage and absolute count will include metamyelocytes, myelocytes, and promyelocytes. Blood smears from CBCs yielding IG's will be scanned manually for concordance. If this scan disagrees with the automated IG or if promyelocytes are noted, a manual differential will be performed. Immature Gran Absolute 0.03 0.00 - 0.04 x10(3)/[facility] Blood 03/23/2022 7:54 AM EDT 03/23/2022 8:08 AM EDT Narrative Resulting Agency Comment Spec In Lab Norma C [place] SEX THERAPIST HEMATOLOGY ORDERAB LES [facility] [place] [address] * (ABNORMAL) Hemogram (03/23/2022 7:54 AM EDT) White Blood Cell 5.3 4.0 - 9.5 x10(3)/ L [facility] Red Blood Cell 5.57(H) 4.58 - 5.54 x10(6)/mc L [facility] Hemoglobin 16.1 13.7 - 16.5 g/dL [facility] Hematocrit 46.4 40.5 - 48.5 % [facility] Mean Cell Volume 83.3 82.9 - 93.1 [facility] Mean Cell Hemoglobin 28.9 27.5 - 32.1 pg [facility] Mean Cell Hemoglobin Concentration 34.7 32.0 - 35.7 g/dL [facility] Platelet 59(L) 145 - 357 x10(3)/mc L [facility] RDW Standard Deviation 38.4 36.0 - 45.0 [facility] RDW coefficient of variation 12.8 11.4 - 13.8 % [facility] Mean Platelet Volume 13.0(H) 7.6 - 12.9 [facility] NRBC% auto 0.0 % [facility] NRBC Absolute 0.000 0.000 - 0.000 x10(3)/mc L [facility] Blood 03/23/2022 7:54 AM EDT 03/23/2022 8:08 AM EDT Narrative Resulting Agency Comment Spec In Lab Norma Garrido APRN HEMATOLOGY ORDERAB LES [facility] [place] [address] * Comprehensive metabolic panel (non-fasting) (03/23/2022 7:54 AM EDT) Glucose 112 65 - 199 mg/dL [facility] Comment:Diabetes: >=200 mg/d L plus symptoms Blood Urea Nitrogen 20 10 - 20 mg/dL [facility] Creatinine 1.13 0.80 - 1.50 mg/dL [facility] Sodium 138 135 - 145 mmol/L [facility] Potassium 4.1 3.5 - 5.0 mmol/L [facility] Comment: Please note: ??Patients with WBC >100,000 may have falsely elevated Potassium levels. ??For accurate Potassium quantification in these patients send serum separator tube (gold top) for subsequent determinations. ??Contact the Clinical Chemistry Laboratory if there are any questions. Chloride 101 98 - 107 mmol/L [facility] Carbon Dioxide 23 22 - 31 mmol/L [facility] Anion Gap 14 5 - 15 mmol/L [facility] Calcium 9.9 8.5 - 10.5 mg/dL [facility] Protein, Total 7.3 6.1 - 8.0 g/dL [facility] Albumin 4.8 3.2 - 5.2 g/dL [facility] Aspartate Aminotransferase 24 0 - 39 unit/L [facility] Alanine Aminotransferase 43 0 - 55 unit/L [facility] Alkaline Phosphatase 90 40 - 130 unit/L [facility] Bilirubin, Total 0.4 0.2 - 1.3 mg/dL [facility] Est Glomerular Filtration Rate 76 >=60 mL/min/1. 73 m?? [facility] Comment: This patient? s [...] Lab Norma Garrido APRN CHEMISTRY ORDERABL ES [facility] [place] [address] documented in this encounter Visit Diagnoses Diagnosis Idiopathic thrombocytopenic purpura Immune thrombocytopenic purpura documented in this encounter Care Teams Heating Equipment Repairer Relationship Specialty Start Date End Date Ruperto Shultz APRN [address] [place] [address] PCP - General Family Medicine 03/23/22 08/14/22 documented as of this encounter
--- OUTSIDE RECORDS SUMMARY | 2024-10-27 11:26 | XMS_ITS | Encounter Summary ---
Author Organization [facility] [place] [address] Care Team Providers Care Recreation Adviser Name Role Phone Kurtis Kingsley Primary Care Provider Encounter Details Date Type Department Care Team (Late st Contact Info) Description 08/09/2021 11:15 AM EDT Ancillary Procedure Radiology at [facility] [address] [place] [address] Stephen Roger MD Social History Tobacco Use Types Packs/Day [...] PM EDT Office [place] [address] [facility] [place] [address] documented as of this encounter Procedures Procedure Name Priority Date/Time Associated Diagnosis Comments FILM LIBRARY STORAGE ONLY MR SPINE Routine 08/09/2021 11:13 AM EDT documented in this encounter Results * Film Library- Storage Only MR Spine (08/09/2021 11:13 AM EDT) Narrative [facility] - 08/09/2021 11:13 AM EDT This exam is auto-finalizing. It's purpose is for storage only. Stephen Roger MD IMG FILM LIBRARY OR DERABLES [place], [place] documented in this encounter Visit Diagnoses Not on filedocumented in this encounter Care Teams Recreation Adviser Relationship Specialty Start Date End Date Kurtis Kingsley DO [address] [place] [address] PCP - General 09/27/10 03/22/22 documented as of this encounter
--- OUTSIDE RECORDS SUMMARY | 2024-10-27 11:26 | XMS_ITS | Encounter Summary ---
[place] [address] Care Team Providers Care Real Estate Valuer Name Role Phone Marian Pierre MD Primary Care Provider [phone] Encounter Details Date Type Department Care Team (Late Contact Info) Description 08/31/2022 Telephone [place] [address] Myra Camara RMA Social History Tobacco Use Types Packs/Day Years [...] encounter Miscellaneous Notes * Telephone Encounter - Myra Camara RMA - 08/31/2022 10:56 AM EDT Spoke with pt.. allergies, meds, & tobacco reviewed. documented in this encounter Plan of Treatment Upcoming Encounters Date Type Department Care Team (Late st Contact Info) Description 01/28/2025 3:30 PM EDT Office Visit [place] [address] Raza Glasgow MD [facility] [place] [address] documented as of this encounter Visit Diagnoses Not on filedocumented in this encounter Care Teams Real Estate Valuer Relationship Specialty Start Date End Date Marian Pierre MD [address] [place] [address] [place] [address] PCP - General Family Medicine 08/15/22 documented as of this encounter
--- OUTSIDE RECORDS SUMMARY | 2024-10-27 11:26 | XMS_ITS | Encounter Summary ---
Author Organization [facility] Address [facility] [place] [address] Care Team Providers Care Combination Man Name Role Phone Ruperto Shultz APRN Primary Care Provider [phone] Reason for Visit * (Routine) - Closed Specialty Diagnoses / Procedures Referred By Den t Referred To Contact Radiology Diagnoses Hemangioma, unspecified site Procedures Request for 2nd read MR Carney Reginald Hansen MD [address] [place] [address] Referral ID Status Reason Start Date Expiration Date Visits Re quested Visits Authorized [id number] Closed 07/11/2022 07/11/2023 1 1 Encounter Details Date Type Department Care Team (Latest Contact Info) Description 07/11/2022 3:45 PM EDT Ancillary Procedure Radiology Library at [facility] [place] [place] [address] Reginald Hansen MD [address] [place] [address] Hemangioma, unspecified site Social History Tobacco Use Types Packs/Day Years [...] 3:30 PM EDT Office [place] [address] Raza Glasgow MD [facility] [place] [address] documented as of this encounter Procedures Procedure Name Priority Date/Time Associated Diagnosis Comments REQUEST FOR 2ND READ MR ABDOMEN Routine 07/11/2022 3:36 PM EDT Hemangioma, unspecified site documented in this encounter Results * Request for 2nd read MR Abdomen (07/11/2022 3:36 PM EDT) Anatomical Region Laterality Modality SO Impressions 07/12/2022 7:25 AM EDT 1. ??19 mm left hepatic lobe benign hemangioma. ??This requires no further imaging follow-up. 2. ??Other scattered simple hepatic cysts, also benign without [...] who have questions please contact the health career center advisor that requested your imaging first. ? Electronically signed by: Baldemar Melton DO, [facility] ([phone]), at 07/12/2022 7:25 AM Narrative 07/12/2022 7:25 AM EDT EXAMINATION: * ??REQUEST FOR 2ND READ MR ABDOMEN * ??MRI OF THE ABDOMEN WITHOUT AND WITH INTRAVENOUS CONTRAST. CLINICAL HISTORY: Hepatic lesion of unclear etiology. ??Follow-up. ??Concern for malignancy. ??Request for second interpretation of outside imaging study * ??Sending institution: [facility]. * ??DATE OF EXAM: July 06, 2022. * ??I believe a reinterpretation of this exam may alter care of Patient. Yes TECHNIQUE: MRI of the abdomen without and with intravenous contrast was performed at [facility] on July 06, 2022. Multiplanar, multisequence MR imaging of the abdomen was performed prior to and following the administration of intravenous contrast. ??Per report, the patient received 14 mL Dotarem intravenous contrast. COMPARISON: Correlation is made to CT of the abdomen and pelvis dated 06/06/2022 and 01/01/2018 FINDINGS: Phlebotomist Lab Assistant Images: Noncontributory. Lower chest: Visualized structures within the inferior thorax are within normal limits. Liver: There is mild diffuse signal dropout on out of phase imaging, consistent with hepatic steatosis. ??In the superolateral aspect of the left hepatic lobe, there is a 19 mm T1 hypointense, T2 hyperintense lesion which on postcontrast imaging demonstrates progressive peripheral nodular enhancement which matches blood pool, consistent with a hemangioma. ??There are other scattered T2 hyperintense, T1 hypointense, nonenhancing lesions throughout the liver, consistent with benign hepatic cysts. Bile ducts: Normal. Gallbladder: Normal. Pancreas: There is mild atrophy of the pancreas with associated fatty replacement. Spleen: The spleen is enlarged with an anteroposterior diameter of 17 cm. Adrenals: Normal. Kidneys: There are a few scattered sub-5 mm T2 hyperintense, T1 hypointense, nonenhancing renal cysts. Vasculature: The aorta is normal in course and caliber. ??The origin the mesenteric and renal arteries are within normal limits. ??The inferior vena cava is normal in course and caliber. ??The superior mesenteric, splenic, and portal veins are patent. ??The hepatic veins are patent. ??The renal veins are patent. Lymph nodes: There are no pathologically enlarged lymph nodes. Bowel: Limited evaluation the distal esophagus is unremarkable. ??The stomach is partially distended. ??The duodenum is normal in course and caliber. ??The remainder the visualized small and large bowel within normal limits. Peritoneum and mesentery: No ascites or loculated fluid collection. Marrow Signal: Normal. Procedure Note GeronimoBaldemar lubin Mohsen, DO - 07/12/2022 EXAMINATION: * REQUEST FOR 2ND READ MR ABDOMEN * MRI OF THE ABDOMEN WITHOUT AND WITH INTRAVENOUS CONTRAST. CLINICAL HISTORY: Hepatic lesion of unclear etiology. Follow-up. Concernfor malignancy. Request for second interpretation of outside imaging study * Sending institution: [facility]. * DATE OF EXAM: July 06, 2022. * I believe a reinterpretation of this exam may alter care of Patient.Yes TECHNIQUE: MRI of the abdomen without and with intravenous contrast was performed at [facility] on July 06, 2022. Multiplanar, multisequence MR imaging of the abdomen was performed priorto and following the administration of intravenous contrast. Per report, thepatient received 14 mL Dotarem intravenous contrast. COMPARISON: Correlation is made to CT of the abdomen and pelvis dated06/06/2022 and 01/01/2018 FINDINGS: Phlebotomist Lab Assistant Images: Noncontributory. Lower chest: Visualized structures within the inferior thorax are withinnormal limits. Liver: There is mild diffuse signal dropout on out of phase imaging,consistent with hepatic steatosis. In the superolateral aspect of the left hepaticlobe, there is a 19 mm T1 hypointense, T2 hyperintense lesion which onpostcontrast imaging demonstrates progressive peripheral nodular enhancement whichmatches blood pool, consistent with a hemangioma. There are other scattered T2 hyperintense, T1 hypointense, nonenhancing lesions throughout the liver, consistent with benign hepatic cysts. Bile ducts: Normal. Gallbladder: Normal. Pancreas: There is mild atrophy of the pancreas with associated fatty replacement. Spleen: The spleen is enlarged with an anteroposterior diameter of 17cm. Adrenals: Normal. Kidneys: There are a few scattered sub-5 mm T2 hyperintense, [id number], nonenhancing renal cysts. Vasculature: The aorta is normal in course and caliber. The origin the mesenteric and renal arteries are within normal limits. The inferior venacava is normal in course and caliber. The superior mesenteric, splenic, andportal veins are patent. The hepatic veins are patent. The renal veins arepatent. Lymph nodes: There are no pathologically enlarged lymph nodes. Bowel: Limited evaluation the distal esophagus is unremarkable. Thestomach is partially distended. The duodenum is normal in course and caliber. The remainder the visualized small and large bowel within normal limits. Peritoneum and mesentery: No ascites or loculated fluid collection. Marrow Signal: Normal. IMPRESSION 1. 19 mm left hepatic lobe benign hemangioma. This requires no furtherimaging follow-up. 2. Other scattered simple hepatic cysts, also benign without need forfurther imaging follow-up. 3. No suspicious hepatic lesions. 4. Hepatic steatosis. 5. Splenomegaly = 17 cm. Thank you for letting us participate in the care of this patient. If youare a health care provider and have any questions regarding this report,please contact the number below. For patients who have questions please contactthe health career center advisor that requested your imaging first. Electronically signed by: Baldemar Melton DO, [facility]([phone]), at 07/12/2022 7:25 AM Reginald Barber MD IMG OUTSIDE I NTERPRETATION ORDERABLES documented in this encounter Visit Diagnoses Diagnosis Hemangioma, unspecified site documented in this encounter Care Teams Combination Man Relationship Specialty Start Date End Date Ruperto Shultz, PRIMARY CARE PHYSICIAN [address] [place] [address] PCP - General Family Medicine 03/23/22 08/14/22 documented as of this encounter
--- OUTSIDE RECORDS SUMMARY | 2024-10-27 11:26 | XMS_ITS | Encounter Summary ---
Author Organization [facility] [place] [address] Care Team Providers Care Pipelines Supervisor Name Role Phone Kurtis Kingsley DO Primary Care Provider Encounter Details Date Type Department Care Team (Late st Contact Info) Description 08/31/2021 4:35 PM EDT Ancillary Procedure Radiology Library at [facility] [place] [address] Kurtis Kingsley DO [address] [place], [place] [address] Social History Tobacco Use Types Packs/Day Years [...] 3:30 PM EDT Office Visit Otolaryngology at [facility] [place] [address] Raza Glasgow MD [facility] [place] [address] documented as of this encounter Procedures Procedure Name Priority Date/Time Associated Diagnosis Comments FILM LIBRARY STORAGE ONLY DX SPINE Routine 08/31/2021 4:31 PM EDT documented in this encounter Results * Film Library- Storage Only DX Spine (08/31/2021 4:31 PM EDT) Narrative RAD - 08/31/2021 4:31 PM EDT This exam is auto-finalizing. It's purpose is for storage only. Kurtis Kingsley DO IM FILM LIBRARY ORD ERABLES Performing Organization Address City/State/[facility] Co de Phone Number [place], [place] documented in this encounter Visit Diagnoses Not on filedocumented in this encounter Care Teams Pipelines Supervisor Relationship Specialty Start Date End Date Kurtis Kingsley DO [address] [place] [address] PCP - General 09/27/10 03/22/22 documented as of this encounter
--- OUTSIDE RECORDS SUMMARY | 2024-10-27 11:26 | XMS_ITS | Encounter Summary ---
Author Organization [facility] [place] [address] Care Team Providers Care Digital Forensic Examiner Name Role Phone Ruperto Shultz Ochoa ECHEVARRIA Primary Care Provider [phone]- [phone] Encounter Details Date Type Department Care Team (Late Contact Info) Description 07/27/2022 Ancillary Procedure Radiology Library at [facility] [place] [phone] Marian Pierre MD [address] [place] [id number] Social History Tobacco Use Types Packs/Day Years [...] EDT Office Visit Otolaryngology at [facility] [place] [address] Raza Glasgow MD [facility] [place] [address] documented as of this encounter Procedures Procedure Name Priority Date/Time Associated Diagnosis Comments FILM LIBRARY STORAGE ONLY CT CHEST Routine 07/27/2022 12:00 AM EDT documented in this encounter Results * Film Library- Storage Only CT Chest (07/27/2022 12:00 AM EDT) Narrative [facility] - 08/15/2022 3:46 PM EDT This exam is auto-finalizing. It's purpose is for storage only. Marian Pierre MD IMG FILM LIBRARY ORD ERABLES Performing Organization Address City/State/[facility] Co de Phone Number [place], [place] documented in this encounter Visit Diagnoses Not on filedocumented in this encounter Care Teams Digital Forensic Examiner Relationship Specialty Start Date End Date Ruperto Shultz, STORAGE MANAGER [address] [place] [address] PCP - General Family Medicine 03/23/22 08/14/22 documented as of this encounter
--- OUTSIDE RECORDS SUMMARY | 2024-10-27 11:26 | XMS_ITS | Encounter Summary ---
[place] [address] Care Team Providers Care Paste Plant Supervisor Name Role Phone Kurtis Kingsley DO Primary Care Provider [phone] Reason for Visit * Reason Onset Date Comments Bumped Appointment 03/28/2021 Patient wants to bump out appointment from 04/14 Encounter Details Date Type Department Care Team (Late st Contact Info) Description 03/28/2021 Telephone Hematology [place] [phone] Sidra Hawkins RN Bumped Appointment (Patient wants to bump out appointment from 04/14) Social History Tobacco Use Types Packs/Day Years [...] if appropriate Message received from patient via [employer] asking about the need for his appointment on 04/14/21 given his PLT count of 81K. RN reviewed chart: patient with Thrombocytopenia of unknown etiology, not requiring treatment even in the setting of a hip replacement, last seen in clinic ~6 months ago with planned 6 month RTC for CMP & CBC on 04/14/21. PLT had been 65K-67K. RN obtained labs from [facility], taken 03/22/21: BMP, CRP,and CBC w/Diff. Confirmed PLT 81K, only other CBC abnormality was elevated MPV 11.4. Only BMP abnormality was BUN 19. CRP elevated at 0.61. RN called to assess patient for bleeding events/medication use that may impact PLT count. Takes Ibuprofen rarely PRN for back aches s/p multiple surgeries, 800 mg once daily. He uses Tylenol first and only takes ibuprofen when pain remains [...] feels he should, but if all that was needed were these labs then he'd like to delay and save the money for another time. documented in this encounter Plan of Treatment Upcoming Encounters Date Type Department Care Team (Late st Contact Info) Description 01/28/2025 3:30 PM EDT Office [place] [address] Raza Glasgow MD [facility] [place] [address] documented as of this encounter Visit Diagnoses Not on filedocumented in this encounter Care Teams Paste Plant Supervisor Relationship Specialty Start Date End Date Kurtis Kingsley DO [address] [place] [address] PCP - General 09/27/10 03/22/22 documented as of this encounter
--- OUTSIDE RECORDS SUMMARY | 2024-10-27 11:26 | XMS_ITS | Encounter Summary ---
Author Organization [facility] [place] [address] Care Team Providers Care Pin Ball Machine Mechanic Name Role Phone Kurtis Kingsley DO Primary Care Provider Encounter Details Date Type Department Care Team (Latest Contact Info) Description 10/13/2020 8:20 AM EST - 10/13/2020 11:59 PM [facility] Hospital Encounter Hematology [place] [address] Idiopathic thrombocytopenic purpura; Stage 1 chronic kidney [...] 3:30 PM EDT Office [place] [address] Raza Glasgow MD [facility] [place] [address] documented as of this encounter Procedures Procedure Name Priority Date/Time Associated Diagnosis Comments HEMOGRAM STAT 10/13/2020 8:34 AM EST Idiopathic thrombocytopenic purpura Stage 1 chronic kidney disease DIFFERENTIAL, AUTOMATED STAT 10/13/2020 8:34 AM EST Idiopathic thrombocytopenic purpura Stage 1 chronic kidney disease HC CBC,PLT & AUTO DIFF STAT 10/13/2020 8:34 AM EST Idiopathic thrombocytopenic purpura Stage 1 chronic kidney disease HC VENIPUNCTURE STAT 10/13/2020 8:34 AM EST Idiopathic thrombocytopenic purpura Stage 1 chronic kidney disease documented in this encounter Results * Differential, Automated (10/13/2020 8:34 AM EST) Neutrophil % 44.8 % [facility] Neutrophil Absolute 2.25 1.70 - 6.10 x10(3)/[facility] Lymph % 42.1 % [facility] Lymphocytes Abs 2.1 0.9 - 3.2 x10(3)/[facility] Monocyte % 9.3 % [facility] Monocyte Abs 0.5 0.3 - 0.9 x10(3)/[facility] Eos % 2.4 % [facility] Eosinophils Abs 0.1 0.0 - 0.4 x10(3)/[facility] Basophil % 0.8 % [facility] Baso Absolute 0.0 0.0 - 0.1 x10(3)/[facility] Immature Gran % 0.60 % [facility] Comment: Immature granulocytes(IG's)percentage and absolute count will include metamyelocytes, myelocytes, and promyelocytes. Blood smears from CBCs yielding IG's will be scanned manually for concordance. If this scan disagrees with the automated IG or if promyelocytes are noted, a manual differential will be performed. Immature Gran Absolute 0.03 0.00 - 0.04 x10(3)/mcL [facility] Blood specimen (specimen) 10/13/2020 8:34 AM EST 10/13/2020 8:42 AM EST Narrative Resulting Agency Comment Spec In Lab Maikel Rebolledo MD HEMATOLOGY ORDERABLE S [facility] [place] [address] * (ABNORMAL) Hemogram (10/13/2020 8:34 AM EST) White Blood Cell 5.0 4.0 - 9.5 x10(3)/mc L [facility] Red Blood Cell 5.63(H) 4.58 - 5.54 x10(6)/mc L [facility] Hemoglobin 16.0 13.7 - 16.5 gm/dL [facility] Hematocrit 46.3 40.5 - 48.5 % [facility] Mean Cell Volume 82.2(L) 82.9 - 93.1 fL [facility] Mean Cell Hemoglobin 28.4 27.5 - 32.1 pg [facility] Mean Cell Hemoglobin Concentration 34.6 32.0 - 35.7 gm/dL [facility] Platelet 65(L) 145 - 357 x10(3)/mc L [facility] RDW Standard Deviation 39.0 36.0 - 45.0 [facility] RDW coefficient of variation 13.1 11.4 - 13.8 % [facility] Mean Platelet Volume 12.0 7.6 - 12.9 fL [facility] NRBC% auto 0.0 % [facility] NRBC Absolute 0.000 0.000 - 0.000 x10(3)/mc L [facility] Blood specimen (specimen) 10/13/2020 8:34 AM EST 10/13/2020 8:42 AM EST Narrative Resulting Agency Comment Spec In Lab Maikel Rebolledo MD HEMATOLOGY ORDERABLE S [facility] [place] [address] * Comprehensive metabolic panel (non-fasting) (10/13/2020 8:34 AM EST) Glucose 97 65 - 199 mg/dL [facility] Comment:Diabetes: >=200 mg/d L plus symptoms Blood Urea Nitrogen 17 10 - 20 mg/dL [facility] Creatinine 1.06 0.80 - 1.50 mg/dL [facility] Sodium 140 135 - 145 mmol/L [facility] Potassium 4.5 3.5 - 5.0 mmol/L [facility] Comment: Please note: ??Patients with WBC >100,000 may have falsely elevated Potassium levels. ??For accurate Potassium quantification in these patients send serum separator tube (gold top) for subsequent determinations. ??Contact the Clinical Chemistry Laboratory if there are any questions. Chloride 103 98 - 107 mmol/L [facility] Carbon Dioxide 27 22 - 31 mmol/L [facility] Anion Gap 10 5 - 15 mmol/L [facility] Calcium 9.5 8.5 - 10.5 mg/dL [facility] Protein, Total 7.1 6.1 - 8.0 gm/dL [facility] Albumin 4.6 3.2 - 5.2 gm/dL [facility] Aspartate Aminotransferase 32 0 - 39 unit/L [facility] Alanine Aminotransferase 41 0 - 55 unit/L [facility] Alkaline Phosphatase 86 40 - 130 unit/L [facility] Bilirubin, Total 0.5 0.2 - 1.3 mg/dL [facility] Est Glomerular Filtration Rate 83 >=60 mL/min/1. 73 m?? [facility] Comment: This patient? s estimated [...] In Lab Maikel Rebolledo MD CHEMISTRY ORDERABLES [facility] [place] [address] documented in this encounter Visit Diagnoses Diagnosis Idiopathic thrombocytopenic purpura Immune thrombocytopenic purpura Stage 1 chronic kidney disease documented in this encounter Care Teams Pin Ball Machine Mechanic Relationship Specialty Start Date End Date Kurtis Kingsley DO [address] [place] [address] PCP - General 09/27/10 03/22/22 documented as of this encounter
--- OUTSIDE RECORDS SUMMARY | 2024-10-27 11:26 | XMS_ITS | Encounter Summary ---
[facility] Organization [facility] [place] [address] Care Team Providers Care Mattress Renovator Name Role Phone Ruperto Shultz APRN Primary Care Provider [phone]- [phone] Reason for Visit * Reason Comments Follow-up Encounter Details Date Type Department Care Team (Latest Contact Info) Description 05/03/2022 10:30 AM EDT Office Visit H[place] [address] Maikel Rebolledo MD [facility] DR HEMATOLOGY [place] [address] Norma Garrido APRN [facility] [address] HEMATOLOGY [place] [address] Idiopathic thrombocytopenic purpura; Stage 1 chronic kidney [...] EDT Temperature 36.4 ??C (97.5 ??F) 05/03/2022 1 0:24 AM EDT Respiratory Rate 18 05/03/2022 10:2 4 AM EDT Oxygen Saturation 97% 05/03/2022 10: 24 AM EDT Inhaled Oxygen Concentration - - Weight 101.9 kg (224 lb 9.6 oz) 022 10:24 AM EDT Height 176 cm (5' 9.29) 05/03/2022 10: 24 AM EDT Body Mass Index 32.89 05/03/2022 10:24 AM EDT documented in this encounter Progress Notes * Maikel Rebolledo MD - 05/03/2022 10:30 AM [...] reasons - enlarged spleen June [address] [facility] reports that he had his right [...] to visit. 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 Family History: - Mother: was tested negative for PLT antigen 1; never had low plt count; - Father: htn, dlp - Siblings: brother and sister: both healthy; His sister also had low plt count at and was transfused; no issues now. Brother is a investment officer at [employer]. No FH of ITP or other hematological [...] review spleen. It is 15.7 cm from [facility] CT scan Assessment/Plan: 51 y/o M with [...] that are unrelated to thrombocytopenia. In particular, it sounds like he may have some lingering side [...] check a stool guaiac. He notes that a recent colonoscopy done in the last few years [...] in 9 months. [facility]. I will forward Dr. Hansen my note. If, does need surgery, he could be at slight increased risk due to his thrombocytopenia. We will need to be certain platelets are available environmental health specialist should issues arise. I will also send my note to his new primary care physician, Dr. Ruperto Shultz I will be sending: Home with stool guaiac cards. Prasanna with f/u with PCP for BP control Consider checking H pylori in future Maikel Rebolledo MD jazz musician Director - Blood and Marrow Transplant Program documented in this encounter Plan of Treatment Upcoming Encounters Date Type Department Care Team (Late st Contact Info) Description 01/28/2025 3:30 PM EDT Office [place] [address] Raza Glasgow MD [facility] [place] [address] documented as of this encounter Results * Comprehensive metabolic panel (non-fasting) (09/06/2022 2:58 PM EDT) Glucose 99 65 - 199 mg/dL [facility] Comment:Diabetes: >=200 mg/d L plus symptoms Blood Urea Nitrogen 18 10 - 20 mg/dL [facility] Creatinine 1.41 0.80 - 1.50 mg/dL [facility] Sodium 141 135 - 145 mmol/L [facility] questions. Chloride 104 98 - 107 mmol/L [facility] Carbon Dioxide 26 22 - 31 mmol/L [facility] Anion Gap 11 5 - 15 mmol/L [facility] Calcium 9.3 8.5 - 10.5 mg/dL [facility] Protein, Total 7.3 6.1 - 8.0 g/dL [facility] Albumin 4.4 3.2 - 5.2 g/dL [facility] Aspartate Aminotransferase 23 0 - 39 unit/L [facility] Alanine Aminotransferase 46 0 - 55 unit/L [facility] Alkaline Phosphatase 84 40 - 130 unit/L [facility] Bilirubin, Total 0.4 0.2 - 1.3 mg/dL [facility] Est Glomerular Filtration Rate 61 >=60 mL/min/1. 73 m?? [facility] Comment: This patient's [...] In Lab Maikel Rebolledo MD CHEMISTRY ORDERABLES [facility] [place] [address] * (ABNORMAL) Comprehensive metabolic panel (non-fasting) (05/03/2022 9:06 AM EDT) Glucose 104 65 - 199 mg/dL [facility] Comment:Diabetes: >=200 mg/d L plus symptoms Blood Urea Nitrogen 16 10 - 20 mg/dL [facility] Creatinine 1.13 0.80 - 1.50 mg/dL [facility] Sodium 136 135 - 145 mmol/L [facility] Potassium 3.7 3.5 - 5.0 mmol/L [facility] Comment: Please note: ??Patients with WBC >100,000 may have falsely elevated Potassium levels. ??For accurate Potassium quantification in these patients send serum separator tube (gold top) for subsequent determinations. ??Contact the Clinical Chemistry Laboratory if there are any questions. Chloride 101 98 - 107 mmol/L [facility] Carbon Dioxide 26 22 - 31 mmol/L [facility] Anion Gap 9 5 - 15 mmol/L [facility] Calcium 9.2 8.5 - 10.5 mg/dL [facility] Protein, Total 7.1 6.1 - 8.0 g/dL [facility] Albumin 4.7 3.2 - 5.2 g/dL [facility] Aspartate Aminotransferase 49(H) 0 - 39 unit/L [facility] Alanine Aminotransferase 51 0 - 55 unit/L [facility] Alkaline Phosphatase 93 40 - 130 unit/L [facility] Bilirubin, Total 0.5 0.2 - 1.3 mg/dL [facility] Est Glomerular Filtration Rate 80 >=60 mL/min/1. 73 m?? [facility] Comment: This patient's [...] Lab Norma Garrido APRN CHEMISTRY ORDERABL ES [facility] [place] [address] documented in this encounter Visit Diagnoses Diagnosis Idiopathic thrombocytopenic purpura Immune thrombocytopenic purpura Stage 1 chronic kidney disease Thrombocytopenia Thrombocytopenia, unspecified documented in this encounter Care Teams Mattress Renovator Relationship Specialty Start Date End Date Ruperto Shultz APRN [address] [place] [address] PCP - General Family Medicine 03/23/22 08/14/22 documented as of this encounter
--- OUTSIDE RECORDS SUMMARY | 2024-10-27 11:26 | XMS_ITS | Encounter Summary ---
[place] [address] Care Team Providers Care Veneer Lathe Operator Name Role Phone Kurtis Kingsley DO Primary Care Provider Encounter Details Date Type Department Care Team (Late st Contact Info) Description 03/29/2021 Orders Only Hematology [place] [address] Sidra Hawkins RN Social History Tobacco Use Types Packs/Day [...] as of this encounter Progress Notes * Sidra Hawkins RN - 03/29/2021 9:38 AM EDT Images from the original note were not included. [facility] HEMATOLOGY AND ONCOLOGY AT [facility] [phone] Date: 03/29/21 Patient Name: Prasanna Pedroza Ramonita : 1970 Diagnosis: Essential Thrombocytopenia Referral to [site]: [facility] Orders: ? Labs: Fax results to [phone]. [x] To be drawn every 6 months starting on ~09/22/21 for 2 events [x] CBC with differential and Comprehensive metabolic panel Signature: Norma Garrido APRN beeper # [id number] Co-signature [if needed]: documented in this encounter Plan of Treatment Upcoming Encounters Date Type Department Care Team (Late st Contact Info) Description 01/28/2025 3:30 PM EDT Office [place] [address] Raza Glasgow MD [facility] [place] [address] documented as of this encounter Visit Diagnoses Not on filedocumented in this encounter Care Teams Veneer Lathe Operator Relationship Specialty Start Date End Date Kurtis Kingsley DO [address] [place] [address] PCP - General 09/27/10 03/22/22 documented as of this encounter
--- OUTSIDE RECORDS SUMMARY | 2024-10-27 11:26 | XMS_ITS | Encounter Summary ---
Author Organization [facility] [place] [address] Care Team Providers Care Customer Contact Representative Name Role Phone Marian Pierre MD Primary Care Provider [phone] Encounter Details Date Type Department Care Team (Late Contact Info) Description 08/15/2022 Orders [place] [phone] Kassandra Falcon MD [facility] [place] [address] Bronchitis Social History Tobacco Use Types Packs/Day Years [...] 3:30 PM EDT Office Visit [place] [phone] Raza Glasgow MD [facility] [place] [address] documented as of this encounter Results * [...] / FVC LLN 68 % COMPAS PFT VUH05-89 Actual Pre-BD 5.20 L/s COMPAS PFT EPZ82-01 Pre-BD % of Predicted 148 % COMPAS PFT IAP08-04 Predicted 3.52 L/s COMPAS PFT GOJ08-84 Pre-BD Z-Score 1.33 COMPAS PFT DLCO Hb [...] Bronchitis, not specified as acute or chronic Bronchitis Bronchitis, not specified as acute or chronic documented in this encounter Care Teams Customer Contact Representative Relationship Specialty Start Date End Date Marian Pierre MD [address] [place] [address] PCP - General Family Medicine 08/15/22 documented as of this encounter
--- OUTSIDE RECORDS SUMMARY | 2024-10-27 11:26 | XMS_ITS | Encounter Summary ---
Author Organization [facility] [place] [address] Care Team Providers Care Balance And Hairspring Assembler Name Role Phone Lexii Ruperto Packer APRN Primary Care Provider [phone] Encounter Details Date Type Department Care Team (Latest Contact Info) Description 05/25/2022 3:42 PM EDT - 05/25/2022 11:59 PM EDT Hospital [place] [address] Idiopathic thrombocytopenic purpura; Stage 1 chronic kidney [...] 3:30 PM EDT Office Visit Otolaryngology at [facility] [place] [address] Raza Glasgow MD [facility] [place] [address] documented as of this encounter Procedures Procedure Name Priority Date/Time Associated Diagnosis Comments [facility] Routine 05/25/2022 8 :00 PM EDT documented in this encounter Results * [facility] (05/25/2022 8:00 PM EDT) Mis Fuentes Test ?Result ? Flag ??Unit ??RefValue Occult Blood, QL, Immunochemical, F ??Occult Blood, Fecal ? Negative ? Negative ?Negative result. ??This test will not detect upper ?gastrointestin al bleeding; the HemoQuant test (9220)should ?be ordered if clinically indicated. ?Test Performed by: ?[facility] ?[address] [place] [address] ?Gauge Machine Operator: Jay Acosta M.D. Ph.D.; CLIA# [id number] [facility] Other Other / Unknown 05/25/2022 8 :00 PM EDT 05/31/2022 11:08 AM EDT Narrative Resulting Agency Comment Spec In Lab Maikel Rebolledo MD LAB SEND OUT ORDERAB LES [facility] [place] [address] documented in this encounter Visit Diagnoses Diagnosis Idiopathic thrombocytopenic purpura Immune thrombocytopenic purpura Stage 1 chronic kidney disease Thrombocytopenia Thrombocytopenia, unspecified documented in this encounter Care Teams Balance And Hairspring Assembler Relationship Specialty Start Date End Date Ruperto Shultz, BUILDING ENGINEER [address] [place] [address] PCP - General Family Medicine 03/23/22 08/14/22 documented as of this encounter
--- OUTSIDE RECORDS SUMMARY | 2024-10-27 11:27 | XMS_ITS | Encounter Summary ---
Author Organization [facility] [place] [address] Care Team Providers Care Coffin Maker Name Role Phone SanchoKurtis mcdaniel Primary Care Provider Encounter Details Date Type Department Care Team (Latest Contact Info) Description 08/28/2018 12:00 PM EDT - 08/28/2018 11:59 PM EDT Hospital Encounter [place]ology [place] [phone] Thrombocytopenia Discharge Disposition: Home Social History Tobacco [...] Date End Date pramipexole (MIRAPEX) 1 mg TabletIndications:pt states he is taking .5 mg 0.5 mg. Indications: pt states he is taking .5 mg 10/19/2015 07/04/2023 FEXOFENADINE HCL (DAVID ORAL) 09/16/2009 03/14/2019 documented as of this encounter Plan of Treatment Upcoming Encounters Date Type Department Care Team (Late st Contact Info) Description 01/28/2025 3:30 PM EDT Office [place] [phone] Raza Glasgow MD [facility] [place] [address] documented as of this encounter Procedures Procedure Name Priority Date/Time Associated Diagnosis Comments HEMOGRAM STAT 08/28/2018 12:41 PM EDT Thrombocytopenia DIFFERENTIAL, AUTOMATED STAT 08/28/2018 12:41 PM EDT Thrombocytopenia CBC (WITH DIFF) STAT 08/28/2018 12:41 PM EDT Thrombocytopenia BASIC METABOLIC PANEL STAT 08/28/2018 12:41 PM EDT Thrombocytopenia documented in this encounter Results * Differential, Automated (08/28/2018 12:41 PM EDT) Neutrophil % 46.4 % [facility] Neutrophil Absolute 2.13 1.70 - 6.10 x10(3)/[facility] Lymph % 42.4 % [facility] Lymphocytes Abs 1.9 0.9 - 3.2 x10(3)/[facility] Monocyte % 8.1 % [facility] Monocyte Abs 0.4 0.3 - 0.9 x10(3)/[facility] Eos % 2.2 % [facility] Eosinophils Abs 0.1 0.0 - 0.4 x10(3)/[facility] Basophil % 0.7 % [facility] Baso Absolute 0.0 0.0 - 0.1 x10(3)/[facility] Immature Gran % 0.20 % [facility] Comment: Immature granulocytes(IG's)percentage and absolute count will include metamyelocytes, myelocytes, and promyelocytes. Blood smears from CBCs yielding IG's will be scanned manually for concordance. If this scan disagrees with the automated IG or if promyelocytes are noted, a manual differential will be performed. Immature Gran Absolute 0.01 0.00 - 0.04 x10(3)/[facility] Blood specimen (specimen) 08/28/2018 12:41 PM EDT 08/28/2018 1:08 PM EDT Narrative Resulting Agency Comment Spec In Lab Norma Garrido SWATHI HEMATOLOGY ORDERAB LES [facility] [place] [address] * (ABNORMAL) Hemogram (08/28/2018 12:41 PM EDT) White Blood Cell 4.6 4.0 - 9.5 x10(3)/mc L [facility] Red Blood Cell 5.43 4.58 - 5.54 x10(6)/mc L [facility] Hemoglobin 15.8 13.7 - 16.5 gm/dL [facility] Hematocrit 44.8 40.5 - 48.5 % [facility] Mean Cell Volume 82.5(L) 82.9 - 93.1 [facility] Mean Cell Hemoglobin 29.1 27.5 - 32.[address] [facility] Mean Cell Hemoglobin Concentration 35.3 32.0 - 35.7 gm/dL [facility] Platelet 72(L) 145 - 357 x10(3)/mc L [facility] RDW Standard Deviation 37.7 36.0 - 45.0 [facility] RDW coefficient of variation 12.5 11.4 - 13.8 % [facility] Mean Platelet Volume 11.7 7.6 - 12.9 [facility] NRBC% auto 0.0 % [facility] NRBC Absolute 0.000 0.000 - 0.000 x10(3)/mc L [facility] Blood specimen (specimen) 08/28/2018 12:41 PM EDT 08/28/2018 1:08 PM EDT Narrative Resulting Agency Comment Spec In Lab Norma Quarles [place] ASSISTANCE COORDINATOR HEMATOLOGY ORDERAB LES [facility] [place] [address] * Basic Metabolic Panel (non-fasting) (08/28/2018 12:41 PM EDT) Glucose 106 65 - 199 mg/dL [facility] Comment:Diabetes: >=200 mg/d L plus symptoms Blood Urea Nitrogen 16 10 - 20 mg/dL [facility] Creatinine 1.14 0.80 - 1.50 mg/dL [facility] Sodium 142 135 - 145 mmol/L [facility] Potassium 4.2 3.5 - 5.0 mmol/L [facility] Comment: Please note: ??Patients with WBC >100,000 may have falsely elevated Potassium levels. ??For accurate Potassium quantification in these patients send serum separator tube (gold top) for subsequent determinations. ??Contact the Clinical Chemistry Laboratory if there are any questions. Chloride 102 98 - 107 mmol/L [facility] Carbon Dioxide 27 22 - 31 mmol/L [facility] Anion Gap 13 5 - 15 mmol/L [facility] Calcium 9.7 8.5 - 10.5 mg/dL [facility] Est Glomerular Filtration Rate 77 >=60 mL/min/1. 73 m?? [facility] Comment: The eGFR was calculated using the CKD-EPI equation. As with all creatinine based estimates of kidney function, eGFR values calculated with the CKD-EPI equation are not accurate in patients with acute kidney failure, extremes of body mass or the acutely ill. http://Mobspire/DHMCnkf eGFR 89 >=60 mL/min/1. 73 m?? [facility] Comment: The eGFR was calculated using the CKD-EPI equation. As with all creatinine based estimates of kidney function, eGFR values calculated with the CKD-EPI equation are not accurate in patients with acute kidney failure, extremes of body mass or the acutely ill. [email or web address]/[email or web address] Blood specimen (specimen) 08/28/2018 12:41 PM EDT 08/28/2018 1:08 PM EDT Narrative Resulting Agency Comment Spec In Lab Norma Garrido ASSISTANCE COORDINATOR CHEMISTRY ORDERABL ES [facility] [place] [address] documented in this encounter Visit Diagnoses Diagnosis Thrombocytopenia Thrombocytopenia, unspecified documented in this encounter Care Teams Coffin Maker Relationship Specialty Start Date End Date Kurtis Kingsley DO [address] [place] [address] PCP - General 09/27/10 03/22/22 documented as of this encounter
--- OUTSIDE RECORDS SUMMARY | 2024-10-27 11:27 | XMS_ITS | Encounter Summary ---
Author Organization [facility] [place] [address] Care Team Providers Care Dairy Farm Worker Name Role Phone Kurtis Kingsley Primary Care Provider Encounter Details Date Type Department Care Team (Late st Contact Info) Description 09/30/2018 Ancillary Procedure Radiology Library at [facility] [place] [phone] Christian Iyer MD [facility] [place] [address] Social History Tobacco Use Types Packs/Day Years [...] 3:30 PM EDT Office Visit Otolaryngology at [facility] [place] [phone] Raza Glasgow MD [facility] [place] [address] documented as of this encounter Procedures Procedure Name Priority Date/Time Associated Diagnosis Comments FILM LIBRARY STORAGE ONLY DX HIP Routine 09/30/2018 12:00 AM EST documented in this encounter Results * Film Library- Storage Only DX Hip (09/30/2018 12:00 AM EST) Narrative RAD - 05/25/2020 11:26 AM EDT This exam is auto-finalizing. It's purpose is for storage only. Christian Iyer MD IMG FILM LIBRARY ORD ERABLES Performing Organization Address City/State/[facility] Co de Phone Number [place], [place] documented in this encounter Visit Diagnoses Not on filedocumented in this encounter Care Teams Dairy Farm Worker Relationship Specialty Start Date End Date Kurtis Kingsley DO [address] [place] [address] PCP - General 09/27/10 03/22/22 documented as of this encounter
--- OUTSIDE RECORDS SUMMARY | 2024-10-27 11:27 | XMS_ITS | Encounter Summary ---
[place] [address] Care Team Providers Care Carbon Sequestration Plant Engineer Name Role Phone Kurtis Kingsley DO Primary Care Provider [phone] Reason for Referral * Diagnostic Test (Routine) - Specialty Diagnoses / Procedures Referred By Den tamayo Referred To Contact Procedures CT Abdomen & Pelvis w Contrast [facility] [address] [place] [address] Referral ID Status Reason Start Date Expiration Date Visits Requested Visits Authorized [id number] Specialty Service Requested 01/07/2018 07/06/2018 1 1 Encounter Details Date Type Department Care Team (Late st Contact Info) Description 01/07/2018 External Results [place]ology [place] [address] [place] Marissa E Social History Tobacco Use Types Packs/Day Years [...] 3:30 PM EDT Office [place] [address] Raza Glasgow MD [facility] [place] [address] documented as of this encounter Procedures Procedure Name Priority Date/Time Associated Diagnosis Comments URINALYSIS DIPSTICK Routine 01/04/2018 8 :15 AM EST COMPREHENSIVE METABOLIC PANEL Routine 01/04/2018 8:15 AM EST documented in this encounter Results * Urinalysis without microscopic (01/04/2018 8:15 AM EST) Color, Urine Dipstick Yellow EXTERNAL LAB Appearance, Urine Dipstick Clear EXTERNAL LAB Specific [place] Urine Automated 1.025 1.005 - 1.025 EXTERNAL LAB pH, Urn (dipstick) 5.5 5 - 8 EXTERNAL LAB Protein, Urine Dipstick Negative EXTERNAL LAB Glucose, Urine Dipstick Negative EXTERNAL LAB Ketone, Urine Dipstick Negative EXTERNAL LAB Bilirubin, Urine Dipstick Negative EXTERNAL LAB Urobilinogen, Urine Dipstick 0.2 EXTERNAL LAB Blood, Urine Dipstick Negative EXTERNAL LAB Leukocytes, Urine Dipstick Negative EXTERNAL LAB Nitrite, Urine Dipstick Negative EXTERNAL LAB Urine specimen (specimen) 01/04/2018 8:15 AM EST Historical Provider URINE ORDERABLES EXTERNAL LAB * (ABNORMAL) Comprehensive metabolic panel (non-fasting) (01/04/2018 8:15 AM EST) Glucose 100 70 - 100 EXTERNAL LAB Blood Urea Nitrogen 19(RIG BUILDER AL/ABN) 7 - 18 EXTERNAL LAB Creatinine 1.28 0.70 - 1.30 EXTERNAL LAB Est Glomerular Filtration Rate >=60 EXTERNAL LAB Sodium 142 136 - 142 EXTERNAL LAB Potassium 4.0 3.5 - 5.1 EXTERNAL LAB Chloride 103 98 - 107 EXTERNAL LAB Carbon Dioxide 29 21.0 - 32.0 EXTERNAL LAB Calcium 9.2 8.5 - 10.1 EXTERNAL LAB Protein, Total 7.5 6.4 - 8.2 EXTERNAL LAB Albumin 4.3 3.4 - 5.0 EXTERNAL LAB Bilirubin, Total 0.52 0.2 - 1.0 EXTERNAL LAB Alkaline Phosphatase 75 46 - 116 EXTERNAL L AB Aspartate Aminotransferase 20 15 - 37 EXTERNAL LAB Alanine Aminotransferase 52 16 - 63 EXTERNAL LAB Blood specimen (specimen) 01/04/2018 8:15 AM EST Historical Provider CHEMISTRY ORDERAB LES EXTERNAL LAB documented in this encounter Visit Diagnoses Not on filedocumented in this encounter Care Teams Carbon Sequestration Plant Engineer Relationship Specialty Start Date End Date Kurtis Kingsley DO [address] [place] [address] PCP - General 09/27/10 03/22/22 documented as of this encounter
--- OUTSIDE RECORDS SUMMARY | 2024-10-27 11:27 | XMS_ITS | Encounter Summary ---
[place] [address] Care Team Providers Care Factory Superintendent Name Role Phone Kurtis Kingsley DO Primary Care Provider Encounter Details Date Type Department Care Team (Latest Contact Info) Description 08/27/2017 11:39 AM EDT - 08/27/2017 11:59 PM EDT Hospital Encounter Hematology [place] [address] Thrombocytopenia; Non morbid obesity due to excess calories; Multiple lipomas Discharge Disposition: Home Social History Tobacco Use [...] 3:30 PM EDT Office Visit [place] [address] Raza Glasgow MD [facility] OTOLARYNGOLOGVamshi [facility] [place] [address] documented as of this encounter Procedures Procedure Name Priority Date/Time Associated Diagnosis Comments HEMOGRAM STAT 08/27/2017 11:52 AM EDT Thrombocytopenia DIFFERENTIAL, AUTOMATED STAT 08/27/2017 11:52 AM EDT Thrombocytopenia CBC (WITH DIFF) STAT 08/27/2017 11:52 AM EDT Thrombocytopenia documented in this encounter Results * Differential, Automated (08/27/2017 11:52 AM EDT) Neutrophil % 44.5 % [facility] Neutrophil Absolute 2.30 1.70 - 6.10 x10(3)/[facility] Lymph % 43.1 % [facility] Lymphocytes Abs 2.2 0.9 - 3.2 x10(3)/[facility] Monocyte % 8.9 % [facility] Monocyte Abs 0.5 0.3 - 0.9 x10(3)/[facility] Eos % 2.3 % [facility] Eosinophils Abs 0.1 0.0 - 0.4 x10(3)/[facility] Basophil % 0.6 % [facility] Baso Absolute 0.0 0.0 - 0.1 x10(3)/[facility]ORY Immature Gran % 0.60 % [facility] Comment: Immature granulocytes(IG's)percentage and absolute count will include metamyelocytes, myelocytes, and promyelocytes. Blood smears from CBCs yielding IG's will be scanned manually for concordance. If this scan disagrees with the automated IG or if promyelocytes are noted, a manual differential will be performed. Immature Gran Absolute 0.03 0.00 - 0.04 x10(3)/[facility] Blood specimen (specimen) 08/27/2017 11:52 AM EDT 08/27/2017 12:10 PM EDT Narrative Resulting Agency Comment Spec In Lab Norma Garrido APRN HEMATOLOGY ORDERAB LES [facility] [place] [address] * (ABNORMAL) Hemogram (08/27/2017 11:52 AM EDT) White Blood Cell 5.2 4.0 - 9.5 x10(3)/mc L [facility] Red Blood Cell 5.41 4.58 - 5.54 x10(6)/mc L [facility] Hemoglobin 15.9 13.7 - 16.5 gm/dL [facility] Hematocrit 44.3 40.5 - 48.5 % [facility] Mean Cell Volume 81.9(L) 82.9 - 93.1 [facility] Mean Cell Hemoglobin 29.4 27.5 - 32.1 [facility] LABORATORY Mean Cell Hemoglobin Concentration 35.9(H) 32.0 - 35.7 gm/dL [facility] Platelet 78(L) 145 - 357 x10(3)/[facility] LABORATORY RDW Standard Deviation 37.6 36.0 - 45.0 [facility] LABORATORY RDW coefficient of variation 12.7 11.4 - 13.8 % [facility] Mean Platelet Volume 11.7 7.6 - 12.9 [facility] LABORATORY NRBC% auto 0.0 % [facility] NRBC Absolute 0.000 0.000 - 0.000 x10(3)/ L [facility] Blood specimen (specimen) 08/27/2017 11:52 AM EDT 08/27/2017 12:10 PM EDT Narrative Resulting Agency Comment Spec In Lab Norma Garrido SWATHI HEMATOLOGY ORDERAB LES [facility] [place] [address] documented in this encounter Visit Diagnoses Diagnosis Thrombocytopenia Thrombocytopenia, unspecified Non morbid obesity due to excess calories Multiple lipomas Lipoma of unspecified site documented in this encounter Care Teams Factory Superintendent Relationship Specialty Start Date End Date Kurtis Kingsley DO [address] [place] [address] PCP - General 09/27/10 03/22/22 documented as of this encounter
--- OUTSIDE RECORDS SUMMARY | 2024-10-27 11:27 | XMS_ITS | Encounter Summary ---
[place] [address] Care Team Providers Care Sailor Name Role Phone Kurtis Kingsley DO Primary Care Provider [phone] Reason for Visit * Reason Onset Date Comments Results 01/04/2018 Encounter Details Date Type Department Care Team (Late st Contact Info) Description 01/04/2018 Telephone [place]ematology [place] [phone] Jaida Crow, RENNY Results Social History Tobacco Use Types Packs/Day [...] encounter Miscellaneous Notes * Telephone Encounter - Jaida Crow RN - 01/04/2018 4:42 PM EST Message received from loan secretary: Prasanna called, he said he had some tests run at [facility] and wanted to update us with the results. I have called over to [facility] to get the tests that were run. [phone] RN reviewed pt's labs from 12/18/17 plt [...] 3:30 PM EDT Office [place] [address] Raza Glasgow MD [facility] [place] [address] documented as of this encounter Visit Diagnoses Not on filedocumented in this encounter Care Teams Sailor Relationship Specialty Start Date End Date Kurtis Kingsley DO [address] [place] [address] PCP - General 09/27/10 03/22/22 documented as of this encounter
--- OUTSIDE RECORDS SUMMARY | 2024-10-27 11:27 | XMS_ITS | Encounter Summary ---
Author Organization [facility] [place] [address] Care Team Providers Care Track Vehicle Repairer Name Role Phone Sancho, Kurtis PIERRE Primary Care Provider [phone] Reason for Visit * Reason Comments Follow-up Encounter Details Date Type Department Care Team (Late st Contact Info) Description 03/05/2019 4:30 PM EDT Office Visit Hematology [place] [address] Maikel Rebolledo MD [facility] DR HEMATOLOGY [place] [address] Norma Alejandra APRN [facility] DR HEMATOLOGY [place] [address] Thrombocytopenia; Stage 1 chronic kidney disease Social History [...] 36.4 ??C (97.5 ??F) 03/05/2019 4:29 PM ED T Respiratory Rate 19 03/05/2019 4:29 PM EDT Oxygen Saturation 98% 03/05/2019 4:29 PM EDT Inhaled Oxygen Concentration - - Weight 97.4 kg (214 lb 12.8 oz) 03/05/2019 4:29 PM EDT Height 176.5 cm (5' 9.5) 03/05/2019 4:29 PM EDT Body Mass Index 31.27 03/05/2019 4:29 PM EDT documented in this encounter Progress Notes * Hema Norma C, OIL FIELD EQUIPMENT MECHANIC - 03/05/2019 4:30 PM EDT Images from [...] get any real relief. He is trying to lose some weight and hopes that it will [...] to visit. 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 Family History: - Mother: was tested negative for PLT antigen 1; never had low plt count; - Father: htn, dlp - Siblings: brother and sister: both healthy; His sister also had low plt count at and was transfused; no issues now. Brother is a plasma processing technician at [employer]. No FH of ITP or other hematological [...] review spleen. It is 15.7 cm from [facility] CT scan Assessment/Plan: 48 y/o M with [...] evaluated the patient today with Melody Alejandra CERTIFIED MARINE MECHANIC. I also reviewed pertinent labs and radiographs. [...] 3:30 PM EDT Office Visit [place] [address] Raza Glasgow MD [facility] [place] [address] documented as of this encounter Procedures Procedure Name Priority Date/Time Associated Diagnosis Comments HEMOGRAM STAT 03/05/2019 3:39 PM EDT Thrombocytopenia DIFFERENTIAL, AUTOMATED STAT 03/05/2019 3:39 PM EDT Thrombocytopenia CBC (WITH DIFF) STAT 03/05/2019 3:39 PM EDT Thrombocytopenia COMPREHENSIVE METABOLIC PANEL Routine 03/05/2019 3:39 PM EDT Thrombocytopenia Stage 1 chronic kidney disease documented in this encounter Results * Comprehensive metabolic panel (non-fasting) (10/08/2019 3:10 PM EST) Glucose 118 65 - 199 mg/dL [facility] Comment:Diabetes: >=200 mg/d L plus symptoms Blood Urea Nitrogen 16 10 - 20 mg/dL [facility] Creatinine 1.17 0.80 - [...] questions. Chloride 102 98 - 107 mmol/L [facility] Carbon Dioxide 25 22 - 31 mmol/L [facility] Anion Gap 12 5 - 15 mmol/L [facility] Calcium 9.5 8.5 - 10.5 mg/dL [facility] Protein, Total 7.6 6.1 - 8.0 gm/dL [facility] Albumin 4.6 3.2 - 5.2 gm/dL [facility] Aspartate Aminotransferase 23 0 - 39 unit/L [facility] Alanine Aminotransferase 36 0 - 55 unit/L [facility] Alkaline Phosphatase 75 40 - 130 unit/L [facility] Bilirubin, Total 0.5 0.2 - 1.3 mg/dL [facility] Est Glomerular Filtration Rate 74 >=60 mL/min/1. 73 m?? [facility] Comment: The eGFR was calculated using the CKD-EPI equation. As with all creatinine based estimates of kidney function, eGFR values calculated with the CKD-EPI equation are not accurate in patients with acute kidney failure, extremes of body mass or the acutely ill. http://Azuqua/[facility] CITY[facility] eGFR 86 >=60 mL/min/1. 73 m?? [facility] Comment: The eGFR was calculated using the CKD-EPI equation. As with all creatinine based estimates of kidney function, eGFR values calculated with the CKD-EPI equation are not accurate in patients with acute kidney failure, extremes of body mass or the acutely ill. http://Azuqua/[facility] [place] CITY[facility] Blood specimen (specimen) 10/08/2019 3:10 PM EST 10/08/2019 3:17 PM EST Narrative Resulting Agency Comment Spec In Lab Maikel Rebolledo MD CHEMISTRY ORDERABLES Performing Organization Address City/State/[facility] Co de Phone Number [facility] [address] * Differential, Automated (03/05/2019 3:39 PM EDT) Neutrophil % 46.4 % [facility] Neutrophil Absolute 2.38 1.70 - 6.10 x10(3)/[facility] LABORAT[facility] Lymph % 40.9 % [facility] Lymphocytes Abs 2.1 0.9 - 3.2 x10(3)/[facility] LABOR[facility]ORY Monocyte % 9.6 % [facility] Monocyte Abs 0.5 0.3 - 0.9 x10(3)/[facility] LABOR[facility] Eos % 1.9 % [facility] Eosinophils Abs 0.1 0.0 - 0.4 x10(3)/[facility] LABORATORY Basophil % 0.8 % [facility] Baso Absolute 0.0 0.0 - 0.1 x10(3)/[facility] LABORATORY Immature Gran % 0.40 % [facility] Comment: Immature granulocytes(IG's)percentage and absolute count will include metamyelocytes, myelocytes, and promyelocytes. Blood smears from CBCs yielding IG's will be scanned manually for concordance. If this scan disagrees with the automated IG or if promyelocytes are noted, a manual differential will be performed. Immature Gran Absolute 0.02 0.00 - 0.04 x10(3)/[facility] LABORATORY Blood specimen (specimen) 03/05/2019 3:39 PM EDT 03/05/2019 3:42 PM EDT Narrative Resulting Agency Comment Spec In Lab Norma Alejandra APRN HEMATOLOGY ORDERAB LES Performing Organization Address City/State/[facility] Co de Phone Number [facility] [place] [address] * (ABNORMAL) Hemogram (03/05/2019 3:39 PM EDT) White Blood Cell 5.1 4.0 - 9.5 x10(3)/[facility] Red Blood Cell 5.48 4.58 - 5.54 x10(6)/[facility] Hemoglobin 16.0 13.7 - 16.5 gm/dL [facility] Hematocrit 45.6 40.5 - 48.5 % [facility] Mean Cell Volume 83.2 82.9 - 93.1 fL [facility] Mean Cell Hemoglobin 29.2 27.5 - 32.1 pg [facility] Mean Cell Hemoglobin Concentration 35.1 32.0 - 35.7 gm/dL [facility] Platelet 81(L) 145 - 357 x10(3)/[facility] LABORAT[facility] RDW Standard Deviation 37.6 36.0 - 45.0 fL [facility] RDW coefficient of variation 12.4 11.4 - 13.8 % [facility] Mean Platelet Volume 11.2 7.6 - 12.9 fL [facility] NRBC% auto 0.0 % [facility] NRBC Absolute 0.000 0.000 - 0.000 x10(3)/mcL [facility] Blood specimen (specimen) 03/05/2019 3:39 PM EDT 03/05/2019 3:42 PM EDT Narrative Resulting Agency Comment Spec In Lab Norma Quarles Hema OIL FIELD EQUIPMENT MECHANIC HEMATOLOGY ORDERAB LES [facility] [place] [address] * Comprehensive metabolic panel (non-fasting) (03/05/2019 3:39 PM EDT) Glucose 98 65 - 199 mg/dL [facility] Comment:Diabetes: >=200 mg/d L plus symptoms Blood Urea Nitrogen 17 10 - 20 mg/dL [facility] Creatinine 1.08 0.80 - [...] questions. Chloride 103 98 - 107 mmol/L [facility] Carbon Dioxide 24 22 - 31 mmol/L [facility] Anion Gap 12 5 - 15 mmol/L [facility] Calcium 9.3 8.5 - 10.5 mg/dL [facility] Protein, Total 7.5 6.1 - 8.0 gm/dL [facility] Albumin 4.4 3.2 - 5.2 gm/dL [facility] Aspartate Aminotransferase 19 0 - 39 unit/L [facility] Alanine Aminotransferase 39 0 - 55 unit/L [facility] Alkaline Phosphatase 81 40 - 120 unit/L [facility] Bilirubin, Total 0.4 0.2 - 1.3 mg/dL [facility] Est Glomerular Filtration Rate 82 >=60 mL/min/1. 73 m?? [facility] Comment: The eGFR was calculated using the CKD-EPI equation. As with all creatinine based estimates of kidney function, eGFR values calculated with the CKD-EPI equation are not accurate in patients with acute kidney failure, extremes of body mass or the acutely ill. http://Azuqua/[facility] eGFR 95 >=60 mL/min/1. 73 m?? [facility] Comment: The eGFR was calculated using the CKD-EPI equation. As with all creatinine based estimates of kidney function, eGFR values calculated with the CKD-EPI equation are not accurate in patients with acute kidney failure, extremes of body mass or the acutely ill. [email or web address] Blood specimen (specimen) 03/05/2019 3:39 PM EDT 03/05/2019 3:42 PM EDT Narrative Resulting Agency Comment Spec In Lab Norma Alejandra APRN CHEMISTRY ORDERABL ES Performing Organization Address City/State/[facility] Co de Phone Number [facility] [place] [address] documented in this encounter Visit Diagnoses Diagnosis Thrombocytopenia Thrombocytopenia, unspecified Stage 1 chronic kidney disease documented in this encounter Care Teams Track Vehicle Repairer Relationship Specialty Start Date End Date Kurtis Kingsley DO [address] [place] [address] PCP - General 09/27/10 03/22/22 documented as of this encounter
--- OUTSIDE RECORDS SUMMARY | 2024-10-27 11:27 | XMS_ITS | Encounter Summary ---
[place] [address] Care Team Providers Care Educational Psychology Professor Name Role Phone SanchoKurtis mcdaniel Primary Care Provider [phone] Encounter Details Date Type Department Care Team (Late st Contact Info) Description 10/14/2019 Telephone Hematology [place] [address] Mickie Miranda RN Social History Tobacco Use Types Packs/Day [...] encounter Miscellaneous Notes * Telephone Encounter - Mickie Miranda RN - 10/14/2019 3:31 PM EST Message received from field secretary: Injection/Infusion Referral Call placed to [facility] Spoke w/ LAB. Services to be provided [...] 3:30 PM EDT Office Visit [place] [address] Raza Glasgow MD [facility] [place] [address] documented as of this encounter Visit Diagnoses Not on filedocumented in this encounter Care Teams Educational Psychology Professor Relationship Specialty Start Date End Date Kurtis Kingsley DO [address] [place] [address] [address] [place] [address] PCP - General 09/27/10 03/22/22 documented as of this encounter
--- OUTSIDE RECORDS SUMMARY | 2024-10-27 11:27 | XMS_ITS | Encounter Summary ---
Author Organization [facility] [place] [address] Care Team Providers Care Automatic Outsole Cutter Name Role Phone Kurtis Kingsley Primary Care Provider [phone] Encounter Details Date Type Department Care Team (Late st Contact Info) Description 10/16/2018 Ancillary Procedure Radiology Library at [facility] [place] [phone] Christian Iyer MD [facility] [place] [address] Social History Tobacco Use Types Packs/Day Years [...] 3:30 PM EDT Office Visit Otolaryngology at [facility] [place] [phone] Raza Glasgow MD [facility] [place] [address] documented as of this encounter Procedures Procedure Name Priority Date/Time Associated Diagnosis Comments FILM LIBRARY STORAGE ONLY MR HIP Routine 10/16/2018 12:00 AM EST documented in this encounter Results * Film Library- Storage Only MR Hip (10/16/2018 12:00 AM EST) Narrative RAD - 05/25/2020 11:22 AM EDT This exam is auto-finalizing. It's purpose is for storage only. Christian Iyer MD IMG FILM LIBRARY ORD ERABLES Performing Organization Address City/State/[facility] Co de Phone Number [place], [place] documented in this encounter Visit Diagnoses Not on filedocumented in this encounter Care Teams Automatic Outsole Cutter Relationship Specialty Start Date End Date Kurtis Kingsley DO [address] [place] [address] PCP - General 09/27/10 03/22/22 documented as of this encounter
--- OUTSIDE RECORDS SUMMARY | 2024-10-27 11:27 | XMS_ITS | Encounter Summary ---
Author Organization [facility] [place] [address] Care Team Providers Care Seafood Preparer Name Role Phone Kurtis Kingsley DO Primary Care Provider [phone] Encounter Details Date Type Department Care Team (Late st Contact Info) Description 10/24/2017 3:30 PM EST Office Visit Hematology [place] [address] Maikel Brooke MD [facility] [place] [address] Norma Garrido APRN [facility] [place] [address] Thrombocytopenia Social History Tobacco Use Types Packs/Day [...] 36.4 ??C (97.5 ??F) 10/24/2017 3:30 PM ES T Respiratory Rate 18 10/24/2017 3:30 PM EST Oxygen Saturation 97% 10/24/2017 3:30 PM EST Inhaled Oxygen Concentration - - Weight 96.2 kg (212 lb) 10/24/2017 3:30 PM EST Height 170.3 cm (5' 7.05) 10/24/2017 3:30 PM ES T Body Mass Index 33.16 10/24/2017 3:30 PM EST documented in this encounter Progress Notes * Maikel Brooke MD - 10/24/2017 3:30 PM EST Images from the original note were not included. Attending Physician: Referring physician: Krutis Durbin Reason for f/up: Thrombocytopenia HPI: 47 [...] to visit. 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 - Smoking: never - Alcohol: rarely - He lives in [place], [place] with his and 3 kids. Family History: - Mother: was tested negative for PLT antigen 1; never had low plt count; - Father: htn, dlp - Siblings: brother and sister: both healthy; His sister also had low plt count at and was transfused; no issues now. Brother is a groover and turner at [employer]. No FH of ITP or other hematological [...] warned Prasanna to call with any bleeding, rash etc. I also metnioned the need for a Medical bracelet again. Finally, I warned that his plates could drop in the setting of a virus and [...] 3:30 PM EDT Office Visit [place] [address] Raza Glasgow MD [facility] [place] [address] documented as of this encounter Results * (ABNORMAL) Comprehensive metabolic panel (non-fasting) (02/20/2018 3:02 PM EDT) [facility] Glucose 141 65 - 199 mg/dL [facility] Comment:Diabetes: >=200 mg/d L plus symptoms Blood Urea Nitrogen 21(H) 10 - 20 mg/dL [facility] Creatinine 1.21 0.80 - 1.50 mg/dL [facility] Sodium 138 135 - 145 mmol/L [facility] Potassium 3.8 3.5 - 5.0 mmol/L [facility] Comment: Please note: ??Patients with WBC >100,000 may have falsely elevated Potassium levels. ??For accurate Potassium quantification in these patients send serum separator tube (gold top) for subsequent determinations. ??Contact the Clinical Chemistry Laboratory if there are any questions. Chloride 99 98 - 107 mmol/L [facility] Carbon Dioxide 25 22 - 31 mmol/L [facility] Anion Gap 14 5 - 15 mmol/L [facility] Calcium 9.4 8.5 - 10.5 mg/dL [facility] Protein, Total 7.4 6.1 - 8.0 gm/dL [facility] Albumin 4.7 3.2 - 5.2 gm/dL [facility] Aspartate Aminotransferase 22 0 - 39 unit/L [facility] Alanine Aminotransferase 46 0 - 55 unit/L [facility] Alkaline Phosphatase 84 40 - 120 unit/L [facility] Bilirubin, Total 0.5 0.2 - 1.3 mg/dL [facility] Est Glomerular Filtration Rate >60 >=60 [facility] Comment: The reported eGFR should be multiplied by 1.2 for patients. The MDRD is not an appropriate measure of renal function for patients with body mass extremes or in patients with acute kidney failure. [email or web address] [email or web address] Blood specimen (specimen) 02/20/2018 3:02 PM EDT 02/20/2018 3:06 PM EDT Narrative Resulting Agency Comment Spec In Lab Maikel Brooke MD CHEMISTRY ORDERABLES [facility] [place] [id number] documented in this encounter Visit Diagnoses Diagnosis Thrombocytopenia Thrombocytopenia, unspecified documented in this encounter Care Teams Seafood Preparer Relationship Specialty Start Date End Date Kurtis Kingsley DO [address] [place] [address] PCP - General 09/27/10 03/22/22 documented as of this encounter
--- OUTSIDE RECORDS SUMMARY | 2024-10-27 11:27 | XMS_ITS | Encounter Summary ---
Author Organization [facility] [place] [address] Care Team Providers Care Supervisor Publications Name Role Phone Sancho Kurtis PIERRE Primary Care Provider [phone] Encounter Details Date Type Department Care Team (Late st Contact Info) Description 07/11/2017 2:30 PM EDT Office Visit [place] [address] Maikel Rebolledo MD [facility] DR [place] [address] Norma Alejandra APRN [facility] DR [place]AT[place] [address] Thrombocytopenia Social History Tobacco Use Types Packs/Day [...] 36.2 ??C (97.2 ??F) 07/11/2017 2:17 PM ED T Respiratory Rate 17 07/11/2017 2:17 PM EDT Oxygen Saturation 99% 07/11/2017 2:17 PM EDT Inhaled Oxygen Concentration - - Weight 94.1 kg (207 lb 6.4 oz) 07/11/2017 2:17 P M EDT Height 179 cm (5' 10.47) 07/11/2017 2:17 PM EDT Body Mass Index 29.36 07/11/2017 2:17 PM EDT documented in this encounter Progress Notes * Norma Alejandra, STONEWORKING BELT SANDER - 07/11/2017 2:30 PM EDT Images from [...] over the weekend after going to the [facility]. He had severe nausea, vomiting and diarrhea. No one else in the family was sick. He is feeling much better today - back to baseline. Prasanna denies bleeding, bruising or petechiae. He occasionally has some BRBPR. None recently. He's not sure if he has hemorrhoids. Does not routinely see Dr. Kingsley as [...] to visit. 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 - Smoking: never - Alcohol: rarely - He lives in [place], [place] with his and 3 kids. Family History: - Mother: was tested negative for PLT antigen 1; never had low plt count; - Father: htn, dlp - Siblings: brother and sister: both healthy; His sister also had low plt count at and was transfused; no issues now. Brother is a coal handler at [employer]. No FH of ITP or other hematological [...] 0.1 x10(3)/mcL Immature Gran % 0.20 % Hceli Gran Abs 0.01 0.00 - 0.04 x10(3)/mcL [...] to the area for work ( Prefers alllabwork at [facility] ). -Routine health maintenance with Dr. Sancho Mims will call in the interim with any clinical concerns including bleeding, bruising, petechiae. NORMA ALEJANDRA APRN Hematology and Oncology documented in this encounter Plan of Treatment Upcoming Encounters Date Type Department Care Team (Late st Contact Info) Description 01/28/2025 3:30 PM EDT Office [place] [address] Raza Glasgow MD [facility] [place] [address] documented as of this encounter Visit Diagnoses Diagnosis Thrombocytopenia Thrombocytopenia, unspecified documented in this encounter Care Teams Supervisor Publications Relationship Specialty Start Date End Date Kurtis Kingsley DO [address] [place] [address] [address] [facility] [address] [place] [address] PCP - General 09/27/10 03/22/22 documented as of this encounter
--- OUTSIDE RECORDS SUMMARY | 2024-10-27 11:27 | XMS_ITS | Encounter Summary ---
[place] [address] Care Team Providers Care Marker Hand Name Role Phone Kurtis Kingsley DO Primary Care Provider [phone] Encounter Details Date Type Department Care Team (Latest Contact Info) Description 07/11/2017 1:21 PM EDT - 07/11/2017 11:59 PM EDT Hospital Encounter [place]ology [place] [address] Thrombocytopenia; Non morbid obesity due [...] 3:30 PM EDT Office [place] [address] Raza Glasgow MD [facility] [place] [address] documented as of this encounter Procedures Procedure Name Priority Date/Time Associated Diagnosis Comments HEMOGRAM STAT 07/11/2017 1:32 PM EDT Thrombocytopenia Non morbid obesity due to excess calories Multiple lipomas DIFFERENTIAL, AUTOMATED STAT 07/11/2017 1:32 PM EDT Thrombocytopenia Non morbid obesity due to excess calories Multiple lipomas CBC (WITH DIFF) STAT 07/11/2017 1:32 PM EDT Thrombocytopenia Non morbid obesity due to excess calories Multiple lipomas documented in this encounter Results * Differential, Automated (07/11/2017 1:32 PM EDT) Neutrophil % 42.1 % [facility] Neutrophil Absolute 1.82 1.70 - 6.10 x10(3)/[facility] Lymph % 44.8 % [facility] Lymphocytes Abs 1.9 0.9 - 3.2 x10(3)/[facility] Monocyte % 9.9 % [facility] Monocyte Abs 0.4 0.3 - 0.9 x10(3)/[facility] Eos % 2.5 % [facility] Eosinophils Abs 0.1 0.0 - 0.4 x10(3)/[facility] Basophil % 0.5 % [facility] Baso Absolute 0.0 0.0 - 0.1 x10(3)/[facility] Immature Gran % 0.20 % [facility] Comment: Immature granulocytes(IG's)percentage and absolute count will include metamyelocytes, myelocytes, and promyelocytes. Blood smears from CBCs yielding IG's will be scanned manually for concordance. If this scan disagrees with the automated IG or if promyelocytes are noted, a manual differential will be performed. Immature Gran Absolute 0.01 0.00 - 0.04 x10(3)/[facility] Blood specimen (specimen) 07/11/2017 1:32 PM EDT 07/11/2017 1:36 PM EDT Narrative Resulting Agency Comment Spec In Lab Norma Garrido TAPE CONTROL SKIN OR SPAR MILL OPERATOR HEMATOLOGY ORDERAB LES [facility] [place] [address] * (ABNORMAL) Hemogram (07/11/2017 1:32 PM EDT) White Blood Cell 4.3 4.0 - 9.5 x10(3)/[facility] Red Blood Cell 5.41 4.58 - 5.54 x10(6)/[facility] Hemoglobin 16.1 13.7 - 16.5 gm/dL [facility] Hematocrit 44.2 40.5 - 48.5 % [facility] Mean Cell Volume 81.7(L) 82.9 - 93.1 [facility] Mean Cell Hemoglobin 29.8 27.5 - 32.1 pg [facility] Mean Cell Hemoglobin Concentration 36.4(H) 32.0 - 35.7 gm/dL [facility] Platelet 56(L) 145 - 357 x10(3)/[facility] RDW Standard Deviation 37.2 36.0 - 45.0 [facility] RDW coefficient of variation 12.6 11.4 - 13.8 % [facility] Mean Platelet Volume 11.6 7.6 - 12.9 [facility] NRBC% auto 0.0 % [facility] NRBC Absolute 0.000 0.000 - 0.000 x10(3)/[facility] Blood specimen (specimen) 07/11/2017 1:32 PM EDT 07/11/2017 1:36 PM EDT Narrative Resulting Agency Comment Spec In Lab Norma Garrido TAPE CONTROL SKIN OR SPAR MILL OPERATOR HEMATOLOGY ORDERAB LES [facility] [place] [address] documented in this encounter Visit Diagnoses Diagnosis Thrombocytopenia Thrombocytopenia, unspecified Non morbid obesity due to excess calories Multiple lipomas Lipoma of unspecified site documented in this encounter Care Teams Marker Hand Relationship Specialty Start Date End Date Kurtis Kingsley DO [address] [place] [address] [address] [place] [address] PCP - General 09/27/10 03/22/22 documented as of this encounter
--- OUTSIDE RECORDS SUMMARY | 2024-10-27 11:27 | XMS_ITS | Encounter Summary ---
Author Organization [facility] [place] [address] Care Team Providers Care Pipeline Executive Name Role Phone SanchoKurtis mcdainel Primary Care Provider Encounter Details Date Type Department Care Team (Latest Contact Info) Description 04/08/2020 8:40 AM EDT Ancillary Procedure Radiology Library [place] [facility] [place] [phone] Remy Taylor MD [address] [place], [place] [phone] Chronic hip pain, unspecified laterality Social History Tobacco Use Types Packs/Day Years [...] 3:30 PM EDT Office Visit Otolaryngology at [facility] [place] [phone] Raza Glasgow MD [facility] [place] [address] documented as of this encounter Procedures Procedure Name Priority Date/Time Associated Diagnosis Comments REQUEST FOR 2ND READ MR HIP Routine 04/08/2020 8:38 AM EDT Chronic hip pain, unspecified laterality documented in this encounter Results * Request for 2nd read MR Hip (04/08/2020 8:38 AM EDT) Anatomical Region Laterality Modality SO Impressions 04/08/2020 9:22 AM EDT 1. ??Osteoarthropathy of right hip with osteophytes, cartilage thinning and anterior superior and anterior labral tears. 2. ??Tiny perilabral cyst at right anterior labral tear. 3. ??Small foci of marrow signal alteration in left proximal femur are nonspecific and may be of no clinical importance if there is no known underlying malignancy. Thank you for letting us participate in the care of this patient. For questions regarding this report, please contact the number below. ? Electronically signed by: Regina Lancaster [facility] ([phone]), at 04/08/2020 9:22 AM Narrative 04/08/2020 9:22 AM EDT EXAMINATION: REQUEST FOR 2ND READ MR HIP CLINICAL HISTORY: Chronic pain just inferior to ASIS with recreation with hip testing (impingement) and external rotation; Hip labral pathology? Chondral defect.; What Modality is the exam? MRI; Body Part (please add comments as necessary): Right Hip; Sending Institution [facility]; Date of exam [id number]; I believe a reinterpretation of this exam may alter care of Patient. Yes, ,entered by ordering service COMPARISON: CT scan abdomen pelvis, December 2017 TECHNIQUE: Noncontrast MRI of the pelvis and Right hip was performed. Large field of view images of the pelvis including both hips were also applied. FINDINGS: Osseous structures * ??No fracture, avascular necrosis, or focal osseous lesion is seen. * ??Left proximal femur ??- Nonspecific small foci of subcortical marrow signal alteration in the intertrochanteric area of proximal femur. The larger focus is posterior, near the greater tuberosity, series 9001 image 13, and the small focus is anterior. No associated fracture line, periostitis or soft tissue component. These are nonspecific and if there is no known underlying malignancy, these represent any combinations of residual hematopoietic marrow, reactive marrow signal alteration from tendinopathy or bone bruise. Right Hip Small osteophytic lipping in femoral head, better appreciated on previous CT examination. Articular cartilage There is fissuring of the cartilage within but without large full-thickness defect seen. The anterior superior acetabular cartilage is attenuated adjacent to the labral tear, described below, series 04185 image 17. Labrum 1. ??Anterior superior labrum-torn at attachment, series 11368 image 17. The adjacent acetabular cartilage is attenuated. 2. ??Anterior labrum-torn at insertion accompanied by a tiny perilabral cyst, series 22002 image 21. 3. ??Rest of labrum- no gross tear. 4. ??perilabral cyst- tiny perilabral cysts adjacent to the anterior labral tear. Ligamentum teres - normal Joint effusion There is trace fluid in right hip joints. Bursal fluid * ??Iliopsoas bursae-no bursal fluid is present. * ??Left trochanteric bursa-no bursal fluid. Minimal peribursal inflammation around the left greater trochanter, adjacent to the small focus of marrow signal alteration. Findings represent left trochanteric peribursal inflammation. Muscles Symmetric muscles. Tendons No tendon interruption. Procedure Note Regina Lancaster MD - 04/08/2020 EXAMINATION: REQUEST FOR 2ND READ MR HIP CLINICAL HISTORY: Chronic pain just inferior to ASIS with recreation withhip testing (impingement) and external rotation; Hip labral pathology?Chondral defect.; What Modality is the exam? MRI; Body Part (please add commentsas necessary): Right Hip; Sending Institution [facility]; Date of exam [id number]; I believe a reinterpretation of this exammay alter care of Patient. Yes, ,entered by ordering service COMPARISON: CT scan abdomen pelvis, December 2017 TECHNIQUE: Noncontrast MRI of the pelvis and Right hip was performed.Large field of view images of the pelvis including both hips were alsoapplied. FINDINGS: Osseous structures * No fracture, avascular necrosis, or focal osseous lesion is seen. * Left proximal femur - Nonspecific small foci of subcortical marrowsignal alteration in the intertrochanteric area of proximal femur. The largerfocus is posterior, near the greater tuberosity, series 9001 image 13, and thesmall focus is anterior. No associated fracture line, periostitis or softtissue component. These are nonspecific and if there is no known underlyingmalignancy, these represent any combinations of residual hematopoietic marrow,reactive marrow signal alteration from tendinopathy or bone bruise. Right Hip Small osteophytic lipping in femoral head, better appreciated on previousCT examination. Articular cartilage There is fissuring of the cartilage within but without largefull-thickness defect seen. The anterior superior acetabular cartilage is attenuatedadjacent to the labral tear, described below, series 85324 image 17. Labrum 1. Anterior superior labrum-torn at attachment, series 77735 image 17.The adjacent acetabular cartilage is attenuated. 2. Anterior labrum-torn at insertion accompanied by a tiny perilabralcyst, series 59516 image 21. 3. Rest of labrum- no gross tear. 4. perilabral cyst- tiny perilabral cysts adjacent to the anterior labraltear. Ligamentum teres - normal Joint effusion There is trace fluid in right hip joints. Bursal fluid * Iliopsoas bursae-no bursal fluid is present. * Left trochanteric bursa-no bursal fluid. Minimal peribursalinflammation around the left greater trochanter, adjacent to the small focus of marrowsignal alteration. Findings represent left trochanteric peribursalinflammation. Muscles Symmetric muscles. Tendons No tendon interruption. IMPRESSION 1. Osteoarthropathy of right hip with osteophytes, cartilage thinningand anterior superior and anterior labral tears. 2. Tiny perilabral cyst at right anterior labral tear. 3. Small foci of marrow signal alteration in left proximal femur are nonspecific and may be of no clinical importance if there is no knownunderlying malignancy. Thank you for letting us participate in the care of this patient. Forquestions regarding this report, please contact the number below. Electronically signed by: Regina Lancaster [facility]([phone]), at 04/08/2020 9:22 AM Remy Taylor MD IMG OUTSIDE INTERPRE TATION ORDERABLES documented in this encounter Visit Diagnoses Diagnosis Chronic hip pain, unspecified laterality documented in this encounter Care Teams Pipeline Executive Relationship Specialty Start Date End Date Kurtis Kingsley DO [address] [place] [address] PCP - General 09/27/10 03/22/22 documented as of this encounter
--- OUTSIDE RECORDS SUMMARY | 2024-10-27 11:27 | XMS_ITS | Encounter Summary ---
Author Organization [place] [address] Care Team Providers Care Smoking Pipe Maker Name Role Phone Sancho Kurtis PIERRE Primary Care Provider Reason for Visit * Reason Comments Follow-up Encounter Details Date Type Department Care Team (Late st Contact Info) Description 08/28/2018 1:00 PM EDT Office Visit Hematology [place] [address] [facility] [address] HEMATOLOGY [place] [address] [facility] [address] HEMATOLOGY [place] [address] Thrombocytopenia Social History Tobacco Use Types Packs/Day [...] 36.3 ??C (97.3 ??F) 08/28/2018 1:06 PM ED T Respiratory Rate 18 08/28/2018 1:06 PM EDT Oxygen Saturation 96% 08/28/2018 1:06 PM EDT Inhaled Oxygen Concentration - - Weight 97.4 kg (214 lb 12.8 oz) 08/28/2018 1:06 PM EDT Height 177.3 cm (5' 9.8) 08/28/2018 1:06 PM EDT Body Mass Index 30.99 08/28/2018 1:06 PM EDT documented in this encounter Progress Notes * Norma Alejandra, BRANCH EXAMINER - 08/28/2018 1:00 PM EDT Images from [...] it due to the side effects. He isinvolved in a spinal clinic and is hopeful to get an injection or possibly surgery to help with hischronic back pain. He has not had any [...] visit. 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 Family History: - Mother: was tested negative for PLT antigen 1; never had low plt count; - Father: htn, dlp - Siblings: brother and sister: both healthy; His sister also had low plt count at and was transfused; no issues now. Brother is a night warehouse selector at [employer]. No FH of ITP or other hematological [...] It is 15.7 cm from [facility] CT scan Assessment/Plan: 48 y/o M with [...] pain I spoke with the radiologist at [facility] and asked him to measure Prasanna's . Prasanna is aware. NORMA ALEJANDRA APRN Hematology and Oncology ------- documented in this encounter Plan of Treatment Upcoming Encounters Date Type Department Care Team (Late st Contact Info) Description 01/28/2025 3:30 PM EDT Office [place] [address] [facility] [place] [address] documented as of this encounter Results * Basic Metabolic Panel (non-fasting) (08/28/2018 12:41 PM EDT) Glucose 106 65 - 199 mg/dL [facility] Comment:Diabetes: >=200 mg/d L plus symptoms Blood Urea Nitrogen 16 10 - 20 mg/dL [facility] Creatinine 1.14 0.80 - 1.50 mg/dL [facility] Sodium 142 135 - 145 mmol/L [facility] Potassium 4.2 3.5 - 5.0 mmol/L [facility] Comment: Please note: ??Patients with WBC >100,000 may have falsely elevated Potassium levels. ??For accurate Potassium quantification in these patients send serum separator tube (gold top) for subsequent determinations. ??Contact the Clinical Chemistry Laboratory if there are any questions. Chloride 102 98 - 107 mmol/L [facility] Carbon Dioxide 27 22 - 31 mmol/L [facility] Anion Gap 13 5 - 15 mmol/L [facility] Calcium 9.7 8.5 - 10.5 mg/dL [facility] Est Glomerular Filtration Rate 77 >=60 mL/min/1. 73 m?? [facility] Comment: The eGFR was calculated using the CKD-EPI equation. As with all creatinine based estimates of kidney function, eGFR values calculated with the CKD-EPI equation are not accurate in patients with acute kidney failure, extremes of body mass or the acutely ill. http://[email or web address]/[facility] eGFR 89 >=60 mL/min/1. 73 m?? [facility] Comment: The eGFR was calculated using the CKD-EPI equation. As with all creatinine based estimates of kidney function, eGFR values calculated with the CKD-EPI equation are not accurate in patients with acute kidney failure, extremes of body mass or the acutely ill. http://[email or web address]/[facility] Blood specimen (specimen) 08/28/2018 12:41 PM EDT 08/28/2018 1:08 PM EDT Narrative Resulting Agency Comment Spec In Lab Norma Alejandra APRN CHEMISTRY ORDERABL ES [facility] [place] [id number] documented in this encounter Visit Diagnoses Diagnosis Thrombocytopenia Thrombocytopenia, unspecified documented in this encounter Care Teams Smoking Pipe Maker Relationship Specialty Start Date End Date Kurtis Kingsley DO [address] [place] [address] PCP - General 09/27/10 03/22/22 documented as of this encounter
--- OUTSIDE RECORDS SUMMARY | 2024-10-27 11:27 | XMS_ITS | Encounter Summary ---
Author Organization [facility] [place] [address] Care Team Providers Care Lubrication Worker Name Role Phone Kurtis Kingsley Primary Care Provider Encounter Details Date Type Department Care Team (Late Contact Info) Description 04/07/2020 Ancillary Procedure Radiology Library at [facility] [place] [phone] Remy Taylor MD [address] [place], [place] [phone] Social History Tobacco Use Types Packs/Day Years [...] 3:30 PM EDT Office Visit Otolaryngology at [facility] [place] [phone] Raza Glasgow MD [facility] [place] [address] documented as of this encounter Procedures Procedure Name Priority Date/Time Associated Diagnosis Comments FILM LIBRARY STORAGE ONLY MR HIP Routine 04/07/2020 12:00 AM EDT documented in this encounter Results * Film Library- Storage Only MR Hip (04/07/2020 12:00 AM EDT) Narrative LEVI ANGELES - 04/08/2020 8:33 AM EDT This exam is auto-finalizing. It's purpose is for storage only. Remy Taylor MD IMG FILM LIBRARY ORD ERABLES Performing Organization Address City/State/[facility] Co de Phone Number [place], [place] documented in this encounter Visit Diagnoses Not on filedocumented in this encounter Care Teams Lubrication Worker Relationship Specialty Start Date End Date Kurtis Kingsley DO [address] [place] [address] PCP - General 09/27/10 03/22/22 documented as of this encounter
--- OUTSIDE RECORDS SUMMARY | 2024-10-27 11:27 | XMS_ITS | Encounter Summary ---
Author Organization [facility] [place] [address] Care Team Providers Care Pit Steward Name Role Phone SanchoKurtis mcdaniel Primary Care Provider Encounter Details Date Type Department Care Team (Late st Contact Info) Description 11/21/2019 Ancillary Procedure Radiology Library at [facility] [place] [phone] Ruperto Shultz, SMOKING TOBACCO CUTTER OPERATOR [address] [place], [place] [address] Social History Tobacco Use Types Packs/Day Years [...] 3:30 PM EDT Office Visit Otolaryngology at [facility] [place] [phone] Raza Glasgow MD [facility] [place] [address] documented as of this encounter Procedures Procedure Name Priority Date/Time Associated Diagnosis Comments FILM LIBRARY STORAGE ONLY DX SHOULDER Routine 11/21/2019 12:00 AM EST documented in this encounter Results * Film Library- Storage Only DX Shoulder (11/21/2019 12:00 AM EST) Narrative LEVI ANGELES - 06/27/2022 3:54 PM EDT This exam is auto-finalizing. It's purpose is for storage only. Ruperto Shultz APRN IMG FILM LIBRARY O RDERABLES Performing Organization Address City/State/[facility] Co de Phone Number [place], [place] documented in this encounter Visit Diagnoses Not on filedocumented in this encounter Care Teams Pit Steward Relationship Specialty Start Date End Date Kurtis Kingsley DO [address] [place] [address] PCP - General 09/27/10 03/22/22 documented as of this encounter
--- OUTSIDE RECORDS SUMMARY | 2024-10-27 11:27 | XMS_ITS | Encounter Summary ---
Author Organization [facility] Address [facility] [place] [address] Care Team Providers Care Cane Weigher Helper Name Role Phone Kurtis Kingsley Primary Care Provider Encounter Details Date Type Department Care Team (Late st Contact Info) Description 08/19/2019 Ancillary Procedure Radiology at [facility] [address] [place] [address] Stephen Roger MD Social History Tobacco Use [...] 3:30 PM EDT Office Visit [place] [address] Raza Glasgow MD [facility] [place] [address] documented as of this encounter Procedures Procedure Name Priority Date/Time Associated Diagnosis Comments FILM LIBRARY STORAGE ONLY MR SPINE Routine 08/19/2019 12:00 AM EDT documented in this encounter Results * Film Library- Storage Only MR Spine (08/19/2019 12:00 AM EDT) Narrative LEVI RAD - 08/20/2019 1:21 PM EDT This exam is auto-finalizing. It's purpose is for storage only. Stephen Roger MD IMG FILM LIBRARY OR DERABLES [place], [place] documented in this encounter Visit Diagnoses Not on filedocumented in this encounter Care Teams Cane Weigher Helper Relationship Specialty Start Date End Date Kurtis Kingsley DO [address] [place] [address] PCP - General 09/27/10 03/22/22 documented as of this encounter
--- OUTSIDE RECORDS SUMMARY | 2024-10-27 11:27 | XMS_ITS | Encounter Summary ---
Author Organization [facility] [place] [address] Care Team Providers Care Equity Research Associate Name Role Phone SanchoKurtis mcdaniel Primary Care Provider Encounter Details Date Type Department Care Team (Late st Contact Info) Description 02/27/2019 Ancillary Procedure Radiology Library at [facility] [place] [phone] Norma Troy MD [address] [place], [place] [address] Social History Tobacco Use Types Packs/Day Years [...] 3:30 PM EDT Office Visit Otolaryngology at [facility] [place] [phone] Raza Glasgow MD [facility] [place] [address] documented as of this encounter Procedures Procedure Name Priority Date/Time Associated Diagnosis Comments FILM LIBRARY STORAGE ONLY MR WRIST Routine 02/27/2019 12:00 AM EDT documented in this encounter Results * Film Library- Storage Only MR Wrist (02/27/2019 12:00 AM EDT) Narrative LEVI ANGELES - 03/14/2019 9:40 AM EDT This exam is auto-finalizing. It's purpose is for storage only. Norma Troy MD IMG FILM LIBRARY ORD ERABLES Performing Organization Address City/State/[facility] Co de Phone Number [place], [place] documented in this encounter Visit Diagnoses Not on filedocumented in this encounter Care Teams Equity Research Associate Relationship Specialty Start Date End Date Kurtis Kingsley DO [address] [place] [address] PCP - General 09/27/10 03/22/22 documented as of this encounter
--- OUTSIDE RECORDS SUMMARY | 2024-10-27 11:27 | XMS_ITS | Encounter Summary ---
Author Organization [facility] [place] [address] Care Team Providers Care Manager Cath Lab Name Role Phone Kurtis Kingsley DO Primary Care Provider [phone] Encounter Details Date Type Department Care Team (Late st Contact Info) Description 01/21/2018 Telephone Hematology [place] [phone] Maikel Rebolledo MD [facility] [address] [place] [address] Social History Tobacco Use Types Packs/Day Years [...] encounter Miscellaneous Notes * Telephone Encounter - Maikel Rebolledo MD - 01/21/2018 4:10 PM EDT Staff January 21, 2018 Patient called since he had a CAT scan done for abdominal pain and a colonoscopy. Colonoscopy was normal. The CAT scan demonstrated an enlarged spleen. He was told by his primary care doctor that thespleen is about 2 times normal. I spoke with the patient today. I emphasized that he needs to be cautious with his activity level and no playing rugby, football etc. In addition, I also emphasized that typically with ITP the spleenis small, not enlarged. This would make the [...] 3:30 PM EDT Office Visit [place] [address] Raza Glasgow MD [facility] [place] [address] documented as of this encounter Visit Diagnoses Not on filedocumented in this encounter Care Teams Manager Cath Lab Relationship Specialty Start Date End Date Kurtis Kingsley DO [address] [place] [address] [address] [place] [address] PCP - General 09/27/10 03/22/22 documented as of this encounter
--- OUTSIDE RECORDS SUMMARY | 2024-10-27 11:27 | XMS_ITS | Encounter Summary ---
Author Organization [facility] [place] [address] Care Team Providers Care Stack Attendant Name Role Phone SanchoKurtis mcdaniel Primary Care Provider Encounter Details Date Type Department Care Team (Late Contact Info) Description 10/13/2019 Orders Only Hematology [place] [phone] Norma Garrido APRN [facility] [address] HEMATOLOGY [place] [address] Thrombocytopenia Social History Tobacco Use Types Packs/Day [...] 3:30 PM EDT Office [place] [address] Raza Glasgow MD [facility] [place] [address] documented as of this encounter Results * (ABNORMAL) CBC (with Diff) (01/14/2020 8:05 AM EDT) White Blood Cell 5.10 4.4 - 10.8 EXTERNAL LAB Hemoglobin 16.3 13.5 - 17.5 EXTERNAL LAB Hematocrit 47.2 40.0 - 50.0 EXTERNAL LAB Platelet 66(EXTERNA L/ABN) 130 - 400 EXTERNAL LAB Neutrophil Absolute (ANC) - Automated 2.29 1.2 - 6.7 EXTERNAL LAB Lymph Absolute Manual 2.29 1.2 - 3.4 EXTERNAL LAB Blood specimen (specimen) 01/14/2020 8:05 AM EDT Norma Garrido REPROGRAPHICS ASSOCIATE HEMATOLOGY ORDERAB LES EXTERNAL LAB documented in this encounter Visit Diagnoses Diagnosis Thrombocytopenia Thrombocytopenia, unspecified documented in this encounter Care Teams Stack Attendant Relationship Specialty Start Date End Date Kurtis Kingsley DO [address] [place] [address] PCP - General 09/27/10 03/22/22 documented as of this encounter
--- OUTSIDE RECORDS SUMMARY | 2024-10-27 11:27 | XMS_ITS | Encounter Summary ---
Author Organization [facility] [place] [address] Care Team Providers Care Inspector Optical Instrument Name Role Phone Kurtis Kingsley DO Primary Care Provider Reason for Referral * Diagnostic Test (Routine) - Closed Specialty Diagnoses / Procedures Referred By Contac t Referred To Contact Radiology Diagnoses Pain of right sacroiliac joint Right low back pain, unspecified chronicity, with sciatica presence unspecified Procedures CT Guided Injection SI Joint Stephen Roger MD [address] [place] [address] [facility] [place] [address] Referral ID Status Reason Start Date Expiration Date V isits Requested Visits Authorized [id number] Closed Specialty Service Requested 08/09/2018 08/09/2019 1 1 Reason for Visit * Diagnostic Test (Routine) - Closed Specialty Diagnoses / Procedures Referred By Contshady t Referred To Contact Radiology Diagnoses Pain of right sacroiliac joint Right low back pain, unspecified chronicity, with sciatica presence unspecified Procedures CT Guided Injection SI Joint Stephen Roger MD [address] [place] [address] [facility] [place] [address] Referral ID Status Reason Start Date Expiration Date V isits Requested Visits Authorized [id number] Closed Specialty Service Requested 08/09/2018 08/09/2019 1 1 Encounter Details Date Type Department Care Team (Latest Contact Info) Description 09/10/2018 10:05 AM EST - 09/10/2018 11:59 PM EST [place] [address] Stephen Roger MD [address] [place] [id number] Pain of right sacroiliac joint; Right low back pain, unspecified chronicity, with sciatica presence unspecified Discharge Disposition: Home Social History Tobacco Use [...] 3:30 PM EDT [place] [phone] Raza Glasgow MD [facility] [place] [address] documented as of this encounter Procedures Procedure Name Priority Date/Time Associated Diagnosis Comments CT GUIDED INJECTION SI JOINT Routine 09/10/2018 12:48 PM EST Pain of right sacroiliac joint Right low back pain, unspecified chronicity, with sciatica presence unspecified documented in this encounter Results * CT Guided Injection SI Joint (09/10/2018 12:48 PM EST) Anatomical Region Laterality Modality Computed Tomogra phy Impressions 09/10/2018 5:[address]-guided right sacroiliac joint anesthetic and steroid injection. Operators: Fellow: Dario Carrasquillo DO Attending: Saud Vasquez MD Procedure/Teaching Attestation: I was present for the entire procedure. Preliminary report signed by: Draio Carrasquillo at 09/10/2018 4:19 PM I have personally reviewed the image(s) and the residents interpretation and agree with the findings, Saud Vasquez at 09/10/2018 5:07 PM Narrative 09/10/2018 5:07 PM EST NEURORADIOLOGY PROCEDURE NOTE PROCEDURE: CT-Guided Sacroiliac Joint Injection CLINICAL HISTORY: Right sacroiliac joint injection with anesthetic and steroid COMPARISON: CT abdomen and pelvis 01/01/2018. TECHNIQUE: The risks and benefits of the procedure were discussed with the patient, and written informed consent was obtained. Prior to beginning the procedure, a standard time out was performed. The patient was positioned prone on the CT table, and noncontrast images of the sacrum were obtained. ??An appropriate level and access path were chosen. ??The skin was then marked, prepped and draped in the usual sterile fashion. 1% lidocaine used for local anesthesia. ?? With intermittent CT fluoroscopic guidance, a 20-gauge spinal needle was advanced into the right sacroiliac joint. Positioning of the was confirmed by injection of a small amount of Omnipaque 300 contrast. 2 mL of 0.5% bupivacaine mixed with 1 mL (80 mg) of Depo-Medrol was injected into the SI joint. ??The needle was removed and a sterile bandage was placed. The patient tolerated the procedure well without immediate complications. ?? FINDINGS: Preprocedure pain: 4/10 Postprocedure pain: 4/10 ?? Procedure Note Saud Vasquez MD - 09/10/2018 NEURORADIOLOGY PROCEDURE NOTE PROCEDURE: CT-Guided Sacroiliac Joint Injection CLINICAL HISTORY: Right sacroiliac joint injection with anesthetic andsteroid COMPARISON: CT abdomen and pelvis 01/01/2018. TECHNIQUE: The risks and benefits of the procedure were discussed with the patient,and written informed consent was obtained. Prior to beginning the procedure,a standard time out was performed. The patient was positioned prone on theCT table, and noncontrast images of the sacrum were obtained. An appropriatelevel and access path were chosen. The skin was then marked, prepped and drapedin the usual sterile fashion. 1% lidocaine used for local anesthesia. With intermittent CT fluoroscopic guidance, a 20-gauge spinal needle was advanced into the right sacroiliac joint. Positioning of the was confirmedby injection of a small amount of Omnipaque 300 contrast. 2 mL of 0.5%bupivacaine mixed with 1 mL (80 mg) of Depo-Medrol was injected into the SI joint.The needle was removed and a sterile bandage was placed. The patient toleratedthe procedure well without immediate complications. FINDINGS: Preprocedure pain: 4/10 Postprocedure pain: 4/[address]-guided right sacroiliac joint anesthetic and steroidinjection. Operators: Fellow: Dario Carrasquillo DO Attending: Saud Vasquez MD Procedure/Teaching Attestation: I was present for the entire procedure. Preliminary report signed by: Dario Carrasquillo at 09/10/2018 4:19 PM I have personally reviewed the image(s) and the residents interpretationand agree with the findings, Saud Vasquez at 09/10/2018 5:07 PM Stephen Roger MD IMG CT ORDERABLES documented in this encounter Visit Diagnoses Diagnosis Pain of right sacroiliac joint Disorders of sacrum Right low back pain, unspecified chronicity, with sciatica presence unspecified documented in this encounter Care Teams Inspector Optical Instrument Relationship Specialty Start Date End Date Kurtis Kingsley DO [address] [place] [address] PCP - General 09/27/10 03/22/22 documented as of this encounter
--- OUTSIDE RECORDS SUMMARY | 2024-10-27 11:27 | XMS_ITS | Encounter Summary ---
Author Organization [facility] [place] [address] Care Team Providers Care Dictaphone Transcriber Name Role Phone SanchoKurtis mcdaniel Primary Care Provider Encounter Details Date Type Department Care Team (Latest Contact Info) Description 02/20/2018 2:58 PM EDT - 02/20/2018 11:59 PM EDT Hospital Encounter [place]ology [place] [phone] Thrombocytopenia Discharge Disposition: Home Social History Tobacco [...] 3:30 PM EDT Office [place] [phone] Raza Glasgow MD [facility] [place] [address] documented as of this encounter Procedures Procedure Name Priority Date/Time Associated Diagnosis Comments HEMOGRAM STAT 02/20/2018 3:02 PM EDT Thrombocytopenia DIFFERENTIAL, AUTOMATED STAT 02/20/2018 3:02 PM EDT Thrombocytopenia CBC (WITH DIFF) STAT 02/20/2018 3:02 PM EDT Thrombocytopenia COMPREHENSIVE METABOLIC PANEL STAT 02/20/2018 3:02 PM EDT Thrombocytopenia documented in this encounter Results * Differential, Automated (02/20/2018 3:02 PM EDT) Neutrophil % 51.5 % [facility] Neutrophil Absolute 2.63 1.70 - 6.10 x10(3)/[facility] Lymph % 39.8 % [facility] Lymphocytes Abs 2.0 0.9 - 3.2 x10(3)/[facility] Monocyte % 5.9 % [facility] Monocyte Abs 0.3 0.3 - 0.9 x10(3)/[facility] Eos % 1.6 % [facility] Eosinophils Abs 0.1 0.0 - 0.4 x10(3)/[facility] Basophil % 0.6 % [facility] Baso Absolute 0.0 0.0 - 0.1 x10(3)/[facility] Immature Gran % 0.60 % [facility] Comment: Immature granulocytes(IG's)percentage and absolute count will include metamyelocytes, myelocytes, and promyelocytes. Blood smears from CBCs yielding IG's will be scanned manually for concordance. If this scan disagrees with the automated IG or if promyelocytes are noted, a manual differential will be performed. Immature Gran Absolute 0.03 0.00 - 0.04 x10(3)/[facility] Blood specimen (specimen) 02/20/2018 3:02 PM EDT 02/20/2018 3:06 PM EDT Narrative Resulting Agency Comment Spec In Lab Maikel Rebolledo MD HEMATOLOGY ORDERABLE S [facility] [place] [address] * (ABNORMAL) Hemogram (02/20/2018 3:02 PM EDT) White Blood Cell 5.1 4.0 - 9.5 x10(3)/mc L [facility] Red Blood Cell 5.73(H) 4.58 - 5.54 x10(6)/mc L [facility] Hemoglobin 16.8(H) 13.7 - 16.5 gm/dL [facility] Hematocrit 47.9 40.5 - 48.5 % [facility] Mean Cell Volume 83.6 82.9 - 93.1 fL [facility] Mean Cell Hemoglobin 29.3 27.5 - 32.1 pg [facility] Mean Cell Hemoglobin Concentration 35.1 32.0 - 35.7 gm/dL [facility] Platelet 75(L) 145 - 357 x10(3)/mc L [facility] RDW Standard Deviation 37.3 36.0 - 45.0 fL [facility] RDW coefficient of variation 12.3 11.4 - 13.8 % [facility] Mean Platelet Volume 11.7 7.6 - 12.9 fL [facility] NRBC% auto 0.0 % [facility] NRBC Absolute 0.000 0.000 - 0.000 x10(3)/mc L [facility] Blood specimen (specimen) 02/20/2018 3:02 PM EDT 02/20/2018 3:06 PM EDT Narrative Resulting Agency Comment Spec In Lab Maikel Rebolledo MD HEMATOLOGY ORDERABLE S [facility] [place] [address] * (ABNORMAL) Comprehensive metabolic panel (non-fasting) (02/20/2018 3:02 PM EDT) Glucose 141 65 - 199 mg/dL [facility] Comment:Diabetes: >=200 mg/d L plus symptoms Blood Urea Nitrogen 21(H) 10 - 20 mg/dL [facility] Creatinine 1.21 0.80 - 1.50 mg/dL [facility] Sodium 138 135 - 145 mmol/L [facility] Potassium 3.8 3.5 - 5.0 mmol/L [facility] Comment: Please note: ??Patients with WBC >100,000 may have falsely elevated Potassium levels. ??For accurate Potassium quantification in these patients send serum separator tube (gold top) for subsequent determinations. ??Contact the Clinical Chemistry Laboratory if there are any questions. Chloride 99 98 - 107 mmol/L [facility] Carbon Dioxide 25 22 - 31 mmol/L [facility] Anion Gap 14 5 - 15 mmol/L [facility] Calcium 9.4 8.5 - 10.5 mg/dL [facility] Protein, Total 7.4 6.1 - 8.0 gm/dL [facility] Albumin 4.7 3.2 - 5.2 gm/dL [facility] Aspartate Aminotransferase 22 0 - 39 unit/L [facility] Alanine Aminotransferase 46 0 - 55 unit/L [facility] Alkaline Phosphatase 84 40 - 120 unit/L [facility] Bilirubin, Total 0.5 0.2 - 1.3 mg/dL [facility] Est Glomerular Filtration Rate >60 >=60 [facility] Comment: The reported eGFR should be multiplied by 1.2 for patients. The MDRD is not an appropriate measure of renal function for patients with body mass extremes or in patients with acute kidney failure. http://[facility]/nkdep http://[facility]/DHMCnkf Blood specimen (specimen) 02/20/2018 3:02 PM EDT 02/20/2018 3:06 PM EDT Narrative Resulting Agency Comment Spec In Lab Maikel Rebolledo MD CHEMISTRY ORDERABLES Performing Organization Address City/State/[facility] Co de Phone Number [facility] [place] [address] documented in this encounter Visit Diagnoses Diagnosis Thrombocytopenia Thrombocytopenia, unspecified documented in this encounter Care Teams Dictaphone Transcriber Relationship Specialty Start Date End Date Kurtis Kingsley DO [address] [place] [address] PCP - General 09/27/10 03/22/22 documented as of this encounter
--- OUTSIDE RECORDS SUMMARY | 2024-10-27 11:27 | XMS_ITS | Encounter Summary ---
Author Organization [facility] [place] [address] Care Team Providers Care Job Placement Officer Name Role Phone Kurtis Kingsley DO Primary Care Provider Encounter Details Date Type Department Care Team (Late st Contact Info) Description 02/20/2018 4:00 PM EDT Office Visit Hematology [place] [address] Norma Alejandra APRN [facility] HEMATOLOGY [place] [address] Thrombocytopenia; Obesity, unspecified classification, unspecified obesity type, unspecified whether serious comorbidity present; Spleen enlarged Social History Tobacco Use Types Packs/Day Years [...] 36.4 ??C (97.5 ??F) 02/20/2018 3:55 PM ED T Respiratory Rate 18 02/20/2018 3:55 PM EDT Oxygen Saturation 96% 02/20/2018 3:55 PM EDT Inhaled Oxygen Concentration - - Weight 94.3 kg (208 lb) 02/20/2018 3:55 PM EDT Height 176.5 cm (5' 9.5) 02/20/2018 3:55 PM EDT Body Mass Index 30.28 02/20/2018 3:55 PM EDT documented in this encounter Progress Notes * Norma Alejandra, CORRECTIVE AND MANUAL ARTS THERAPIST - 02/20/2018 4:00 PM EDT Images from [...] about persistent left flank pain. Has been seeing Dr. Kingsley who would like Prasanna to get [...] to visit. 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 Family History: - Mother: was tested negative for PLT antigen 1; never had low plt count; - Father: htn, dlp - Siblings: brother and sister: both healthy; His sister also had low plt count at and was transfused; no issues now. Brother is a director of search engine marketing at [employer]. No FH of ITP or other hematological [...] why his spleen is enlarged and would like to know how enlarged it is. He will [...] petechiae. I spoke with the radiologist at [facility] and asked him to measure Prasanna's spleen. It is 15.7 cm. Prasanna is aware. NORMA ALEJANDRA APRN Hematology and Oncology ------- documented in this encounter Plan of Treatment Upcoming Encounters Date Type Department Care Team (Late st Contact Info) Description 01/28/2025 3:30 PM EDT Office Visit [place] [address] aRza Glasgow MD [facility] [place] [address] documented as of this encounter Visit Diagnoses Diagnosis Thrombocytopenia Thrombocytopenia, unspecified Obesity, unspecified classification, unspecified obesity type, unspecified whether serious comorbidity present Spleen enlarged Splenomegaly documented in this encounter Care Teams Job Placement Officer Relationship Specialty Start Date End Date Kurtis Kingsley DO [address] [place] [address] PCP - General 09/27/10 03/22/22 documented as of this encounter
--- OUTSIDE RECORDS SUMMARY | 2024-10-27 11:27 | XMS_ITS | Encounter Summary ---
Author Organization [place] [address] Care Team Providers Care Etiology Teacher Name Role Phone Kurtis Kingsley DO Primary Care Provider Encounter Details Date Type Department Care Team (Latest Contact Info) Description 10/08/2019 2:57 PM EST - 10/08/2019 11:59 PM [facility] Hospital Encounter Hematology [place] [address] Thrombocytopenia; Stage 1 chronic kidney disease Discharge Disposition: [...] Date End Date cetirizine (ZYRTEC) 10 mg Tablet PRN 03/07/2019 PROAIR HFA 90 mcg/actuation HFA Aerosol InhalerIndications:PRN Indications: PRN 1 01/16/2019 0 04/14/2020 pramipexole (MIRAPEX) 1 mg TabletIndications:pt states he is taking .5 mg 0.5 mg. Indications: pt states he is taking .5 mg 10/19/2015 07/04/2023 documented as of this encounter Plan of Treatment Upcoming Encounters Date Type Department Care Team (Late st Contact Info) Description 01/28/2025 3:30 PM EDT Office Visit Otolaryngology at [facility] [place] [address] Raza Glasgow MD [facility] [address] documented as of this encounter Procedures Procedure Name Priority Date/Time Associated Diagnosis Comments HEMOGRAM STAT 10/08/2019 3:10 PM EST Thrombocytopenia Stage 1 chronic kidney disease DIFFERENTIAL, AUTOMATED STAT 10/08/2019 3:10 PM EST Thrombocytopenia Stage 1 chronic kidney disease HC CBC,PLT & AUTO DIFF STAT 10/08/2019 3:10 PM EST Thrombocytopenia Stage 1 chronic kidney disease HC VENIPUNCTURE STAT 10/08/2019 3:10 PM EST Thrombocytopenia Stage 1 chronic kidney disease documented in this encounter Results * Differential, Automated (10/08/2019 3:10 PM EST) Neutrophil % 52.4 % [facility] Neutrophil Absolute 2.70 1.70 - 6.10 x10(3)/[facility] Lymph % 36.4 % [facility] Lymphocytes Abs 1.9 0.9 - 3.2 x10(3)/[facility] Monocyte % 8.1 % [facility] Monocyte Abs 0.4 0.3 - 0.9 x10(3)/[facility] Eos % 1.9 % [facility] Eosinophils Abs 0.1 0.0 - 0.4 x10(3)/[facility] Basophil % 0.6 % [facility] Baso Absolute 0.0 0.0 - 0.1 x10(3)/[facility] Immature Gran % 0.60 % [facility] Comment: Immature granulocytes(IG's)percentage and absolute count will include metamyelocytes, myelocytes, and promyelocytes. Blood smears from CBCs yielding IG's will be scanned manually for concordance. If this scan disagrees with the automated IG or if promyelocytes are noted, a manual differential will be performed. Immature Gran Absolute 0.03 0.00 - 0.04 x10(3)/mcL [facility] Blood specimen (specimen) 10/08/2019 3:10 PM EST 10/08/2019 3:17 PM EST Narrative Resulting Agency Comment Spec In Lab Maikel Rebolledo MD HEMATOLOGY ORDERABLE S [facility] [place] [address] * (ABNORMAL) Hemogram (10/08/2019 3:10 PM EST) White Blood Cell 5.2 4.0 - 9.5 x10(3)/ L [facility] Red Blood Cell 5.73(H) 4.58 - 5.54 x10(6)/[facility] LAB[facility]ORY Hemoglobin 16.6(H) 13.7 - 16.5 gm/dL [facility] Hematocrit 47.8 40.5 - 48.5 % [facility] Mean Cell Volume 83.4 82.9 - 93.1 fL [facility] Mean Cell Hemoglobin 29.0 27.5 - 32.1 pg [facility] Mean Cell Hemoglobin Concentration 34.7 32.0 - 35.7 gm/dL [facility] Platelet 67(L) 145 - 357 x10(3)/ L [facility] RDW Standard Deviation 38.9 36.0 - 45.0 [facility] RDW coefficient of variation 12.9 11.4 - 13.8 % [facility] Mean Platelet Volume 11.7 7.6 - 12.9 [facility] NRBC% auto 0.0 % [facility] NRBC Absolute 0.000 0.000 - 0.000 x10(3)/ L [facility] Blood specimen (specimen) 10/08/2019 3:10 PM EST 10/08/2019 3:17 PM EST Narrative Resulting Agency Comment Spec In Lab Maikel Rebolledo MD HEMATOLOGY ORDERABLE S [facility] [place] [address] * Comprehensive metabolic panel (non-fasting) (10/08/2019 3:10 PM EST) Glucose 118 65 - 199 mg/dL [facility] Comment:Diabetes: >=200 mg/d L plus symptoms Blood Urea Nitrogen 16 10 - 20 mg/dL [facility] Creatinine 1.17 0.80 - 1.50 mg/dL [facility] Sodium 139 135 - 145 mmol/L [facility] Potassium 4.1 3.5 - 5.0 mmol/L [facility] Comment: Please note: ??Patients with WBC >100,000 may have falsely elevated Potassium levels. ??For accurate Potassium quantification in these patients send serum separator tube (gold top) for subsequent determinations. ??Contact the Clinical Chemistry Laboratory if there are any questions. Chloride 102 98 - 107 mmol/L [facility] Carbon Dioxide 25 22 - 31 mmol/L [facility] Anion Gap 12 5 - 15 mmol/L [facility] Calcium 9.5 8.5 - 10.5 mg/dL [facility] Protein, Total 7.6 6.1 - 8.0 gm/dL [facility] Albumin 4.6 3.2 - 5.2 gm/dL [facility] Aspartate Aminotransferase 23 0 - 39 unit/L [facility] Alanine Aminotransferase 36 0 - 55 unit/L [facility] Alkaline Phosphatase 75 40 - 130 unit/L [facility] Bilirubin, Total 0.5 0.2 - 1.3 mg/dL [facility] Est Glomerular Filtration Rate 74 >=60 mL/min/1. 73 m?? [facility] Comment: The eGFR was calculated using the CKD-EPI equation. As with all creatinine based estimates of kidney function, eGFR values calculated with the CKD-EPI equation are not accurate in patients with acute kidney failure, extremes of body mass or the acutely ill. http://Ziftit/[facility]nkf eGFR 86 >=60 mL/min/1. 73 m?? [facility] Comment: The eGFR was calculated using the CKD-EPI equation. As with all creatinine based estimates of kidney function, eGFR values calculated with the CKD-EPI equation are not accurate in patients with acute kidney failure, extremes of body mass or the acutely ill. http://Ziftit/[facility] Blood specimen (specimen) 10/08/2019 3:10 PM EST 10/08/2019 3:17 PM EST Narrative Resulting Agency Comment Spec In Lab Maikel Rebolledo MD CHEMISTRY ORDERABLES Performing Organization Address City/State/[facility] Co de Phone Number [facility] [place] [address] documented in this encounter Visit Diagnoses Diagnosis Thrombocytopenia Thrombocytopenia, unspecified Stage 1 chronic kidney disease documented in this encounter Care Teams Etiology Teacher Relationship Specialty Start Date End Date Kurtis Kingsley DO [address] [place] [address] PCP - General 09/27/10 03/22/22 documented as of this encounter
--- OUTSIDE RECORDS SUMMARY | 2024-10-27 11:27 | XMS_ITS | Encounter Summary ---
Author Organization [facility] [place] [address] Care Team Providers Care Wood Floor Layer Name Role Phone Kurtis Kingsley DO Primary Care Provider [phone] Encounter Details Date Type Department Care Team (Late st Contact Info) Description 12/10/2019 8:30 AM EST Office Visit [place] [address] Lara Bravo PsyD Failed back syndrome of lumbar spine Social History Tobacco Use Types Packs/Day Years Used Date Smoking Tobacco: Never Smokeless Tobacco: Never Alcohol Use Standard Drinks/Week Comments Yes 0 (1 standard drink = 0.6 oz pur e alcohol) Sex and Gender Information Value Date Recorded Sex Assigned at Not on file Gender Identity Not on file Sexual Orientation Not on file documented as of this encounter Progress Notes * Lara Bravo PsyD - 12/10/2019 8:30 AM EST BEHAVIORAL PAIN MANAGEMENT INITIAL APPOINTMENT Name: Prasanna Srinivasanalexis Patient's age: 49 y.o. Date: Duration of appt: 60 minutes. SUMMARY 49 year old white male from [facility], with hx of failed back syndrome referred to behavioral pain management by Jefferson Ash MD for ongoing pain that has been poor to respond to treatment. Patient seen previously by this fha underwriter as a warm handoff from Dr. Ash [...] ability to walk, carry objects, and climb stairs.He does not use a cane or other [...] note some rumination (PCS = 12/52 ). rPasanna was screened for suicidal ideation and any history of suicidal behavior, which he denied. Primary Pain Concern at this time: No specific pain concern at this time. Patient stated, right now I feel good, I've lost weight, my pain is better. Attributes his pain reduction to weight loss, increased strength. He is working with a physical fitness trainer and his exercise regimen includes a lot of core strengthening, cardio, strength and conditioning, and specific attention to proper movement. Reports some mild stabbing in his lower right back and numbness in his LE. Brief description of pain history: In 2012 stated that he injured his back while lifting heavy weights, which led to a bilateral fasciectomy done by [facility] Dr. Giselle Shin (pt reports strong respect and admiration for this provider.) Stated that he had been informed that his nerves needed room to flow through the facet joint to relieve the sciatica (compression from lifting), This experience went on a for a period of time, met with several docs, the MRIs were not conclusive. Had surgery, out of work for six weeks, and but eventually the surgery helped a great deal. 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 This surgery was L4-L5, L5-S1. Again giselle shin. This surgery also helped. Couldn't be on his back for sixweeks for recovery, had to have an active [...] Saw Dr. Shin again, who thought it was S1 joint, sent to Raj Ramesh, after reviewing MRIs, said not SI joint. Then to Dr. Taylor, and then it moved from left to right side. Couldn't walk. Couldn't get an MRI. They did a CT guided injection into SI joint, no relief. Can still feel it in his hip, second CT guided injection in his hip, no relief. Another MRI, now thinking that it might [...] depressed. Said his primary (Dr. Kingsley) had heartto heart talk to him, he was told that he was full of stenosis and arthritis. Was told he needs to make lifestyle changes. Told to go see Santiago MCKENNA - performance training in [place]. He has been there 7 months, working with a filler leaf cutter long, Down about 15 pounds, Goal is to get to under 200. Recently went on a cruise. On this trip, he kneeled on a paddle board for two hours, this aggravated his hip. Lots of stairs on the cruise ship, hadto use elevator. Continues to experience some numbness [...] work related. Oldest son now in college. 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 Current stressors: spending a lot of time frustrated and aggravated with work. Interviewing actively for another job. Primarily sleeps to manage stress; Focuses on work. Will go in the hot tub every night. 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 Lots of challenges as couple because Mahin is a challenge. Lots of psych history, loves his dearly. Other health concerns: underlying health concerns, ITP - immunothryopeia, low platelet counts - sees soraya Garrido and Dr. Ashby in [facility] sees them every few months. Always in the back of my mind. Not doing transfusions, I'm healthy, had some abdominal issues a few years ago, and they did a CT scan of abdomen and he had a larger spleen. There are some anomalies. ASSESSMENT Mr. Shipman appears to have a good understanding of the important role of exercise in managing chronic pain, and he also appears to understanding that [...] Linear, goal-directed, logical. No evidence of hallucinations, frnack, or delusions. Speech: Normal rate, rhythm, volume. Judgment/Insight: Good. Diagnosis: Failed Back Syndrome TREATMENT RECOMMENDATION Continue with current self management program. PLAN: No additional follow up with this provider is planned at this time. documented in this encounter Plan of Treatment Upcoming Encounters Date Type Department Care Team (Late st Contact Info) Description 01/28/2025 3:30 PM EDT Office [place] [address] Raza Glasgow MD [facility] [place] [address] documented as of this encounter Visit Diagnoses Diagnosis Failed back syndrome of lumbar spine Postlaminectomy syndrome, lumbar region documented in this encounter Care Teams Wood Floor Layer Relationship Specialty Start Date End Date Kurtis Kingsley DO [address] [place] [address] PCP - General 09/27/10 03/22/22 documented as of this encounter
--- OUTSIDE RECORDS SUMMARY | 2024-10-27 11:27 | XMS_ITS | Encounter Summary ---
Author [place] [address] Care Team Providers Care Chemical Equipment Controller Name Role Phone Sancho Kurtis PIERRE Primary Care Provider Encounter Details Date Type Department Care Team (Late st Contact Info) Description 11/21/2019 Telephone [place] [phone] Serina Rhodes Social History Tobacco Use Types Packs/Day Years [...] encounter Miscellaneous Notes * Telephone Encounter - Serina Rhodes - 11/21/2019 3:09 PM EST Left message for patient to call back [phone], option 2. He needs to be scheduled [...] 3:30 PM EDT Office [place] [address] Raza Glasgow MD [facility] [place] [address] documented as of this encounter Visit Diagnoses Not on filedocumented in this encounter Care Teams Chemical Equipment Controller Relationship Specialty Start Date End Date Kurtis Kingsley DO [address] [place] [address] [address] [place] [address] PCP - General 09/27/10 03/22/22 documented as of this encounter
--- OUTSIDE RECORDS SUMMARY | 2024-10-27 11:27 | XMS_ITS | Encounter Summary ---
Author Organization [facility] [place] [address] Care Team Providers Care Research Subject Name Role Phone Kurtis Kingsley DO Primary Care Provider Encounter Details Date Type Department Care Team (Late st Contact Info) Description 03/07/2017 4:00 PM EDT Office Visit Hematology [place] [address] Maikel Rebolledo MD [facility] HEMATOLOGY [place] [address] Norma Alejandra APRN [facility] [address] HEMATOLOGY [place] [address] Palma Coulter DO Thrombocytopenia; Non morbid obesity due to excess calories; Multiple lipomas Social History Tobacco Use Types Packs/Day Years [...] 36.2 ??C (97.2 ??F) 03/07/2017 3:44 PM ED T Respiratory Rate 17 03/07/2017 3:44 PM EDT Oxygen Saturation 100% 03/07/2017 3:44 PM EDT Inhaled Oxygen Concentration - - Weight 95.4 kg (210 lb 6.4 oz) 03/07/2017 3:44 P M EDT Height 179 cm (5' 10.47) 03/07/2017 3:44 PM EDT Body Mass Index 29.79 03/07/2017 3:44 PM EDT documented in this encounter Progress Notes * Hema Norma C, [employer] - 03/07/2017 4:00 PM EDT Images from [...] to visit. 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 - Smoking: never - Alcohol: rarely - He lives in [place], [place] with his and 3 kids. Family History: - Mother: was tested negative for PLT antigen 1; never had low plt count; - Father: htn, dlp - Siblings: brother and sister: both healthy; His sister also had low plt count at and was transfused; no issues now. Brother is a rover tender at [employer]. No FH of ITP or other hematological [...] 3:30 PM EDT Office [place] [address] Raza Glasgow MD [facility] [place] [address] Scheduled Orders Name Type Priority Associated Diagnoses Orde r Schedule CBC (with Diff) Lab STAT Thrombocytopenia Non morbid obesity due to excess calories Multiple lipomas Every 16 weeks for 3 Occurrences starting 03/20/2017 until 07/12/2018, 1 completed documented as of this encounter Visit Diagnoses Diagnosis Thrombocytopenia Thrombocytopenia, unspecified Non morbid obesity due to excess calories Multiple lipomas Lipoma of unspecified site documented in this encounter Care Teams Research Subject Relationship Specialty Start Date End Date Kurtis Kingsley DO [address] [place] [address] [facility] [address] [place] [address] PCP - General 09/27/10 03/22/22 documented as of this encounter
--- OUTSIDE RECORDS SUMMARY | 2024-10-27 11:27 | XMS_ITS | Encounter Summary ---
Author Organization [facility] [place] [address] Care Team Providers Care Compressor Mechanic Name Role Phone Kurtis Kingsley DO Primary Care Provider Reason for Referral * Diagnostic Test (Routine) - Closed Specialty Diagnoses / Procedures Referred By Contac t Referred To Contact Radiology Diagnoses Lumbar spondylosis Procedures CT Guided Nerve Block Lumbar Single Level Stephen Roger MD [address] [place] [address] [facility] [place] [address] Referral ID Status Reason Start Date Expiration Date V isits Requested Visits Authorized [id number] Closed Specialty Service Requested 07/01/2019 06/30/2020 1 1 Reason for Visit * Diagnostic Test (Routine) - Closed Specialty Diagnoses / Procedures Referred By Contac t Referred To Contact Radiology Diagnoses Lumbar spondylosis Procedures CT Guided Nerve Block Lumbar Single Level Stephen Roger MD [address] [place] [address] [facility] [place] [address] Referral ID Status Reason Start Date Expiration Date V isits Requested Visits Authorized [id number] Closed Specialty Service Requested 07/01/2019 06/30/2020 1 1 Encounter Details Date Type Department Care Team (Latest Contact Info) Description 08/05/2019 10:04 AM EDT - 08/05/2019 11:59 PM EDT Hospital En[place] [phone] Stephen Roger MD [address] [place] [address] Lumbar spondylosis Discharge Disposition: Home Social History Tobacco Use [...] 3:30 PM EDT Office Visit [place] [address] Raza Glasgow MD [facility] [place] [address] documented as of this encounter Procedures Procedure Name Priority Date/Time Associated Diagnosis Comments CT GUIDED NERVE BLOCK LUMBAR SINGLE LEVEL Routine 08/05/2019 11:24 AM EDT Lumbar spondylosis documented in this encounter Results * CT Guided Nerve Block Lumbar Single Level (08/05/2019 11:24 AM EDT) Anatomical Region Laterality Modality T-spine Computed Tomogra phy Impressions 08/05/2019 12:[address]-guided [...] the number below. ? Electronically signed by: Yamile Dumas [facility] ([phone]), at 08/05/2019 12:33 PM Narrative 08/05/2019 12:33 PM EDT EXAMINATION: CT-Guided right L4-L5 Facet Joint Injection CLINICAL HISTORY: Right L4/5 facet injection with anesthetic and steroid COMPARISON: CT of the abdomen and pelvis 01/01/2018 TECHNIQUE: The risks and benefits of the procedure were discussed with the patient, and written informed consent was obtained. ??The patient was positioned prone on the CT table, and noncontrast images of the lumbar spine were obtained. The L4-L5 level and access path were chosen. ??The skin was then marked, prepped and draped in the usual sterile fashion. 1% lidocaine used for local anesthesia. ?? With intermittent CT fluoroscopic guidance, a 22-gauge spinal needle was advanced into the right L4-L5 facet joint. Into the joint, 2 mL of 0.5% bupivacaine mixed with 80 mg of Depo-Medrol was injected. ??The needles were removed. The patient tolerated the procedure well with no immediate complications. ?? FINDINGS: Postoperative changes at L4-L5 on the left consistent with laminotomy and foraminotomy. Facet arthropathy at L4-L5 on the right and L5-S1 bilaterally. Preprocedure pain: 4/10 Postprocedure pain: 3/10 ??with superimposed fullness limiting evaluation. Patient was provided with the scoring sheet to assess postprocedural pain. OPERATORS: Fellow: Kenn Adkins MD Attending: Yamile Dumas MD Procedure Note Yamile Dumas MD - 08/05/2019 EXAMINATION: CT-Guided right L4-L5 Facet Joint Injection CLINICAL HISTORY: Right L4/5 facet injection with anesthetic and steroid COMPARISON: CT of the abdomen and pelvis 01/01/2018 TECHNIQUE: The risks and benefits of the procedure were discussed with the patient,and written informed consent was obtained. The patient was positioned proneon the CT table, and noncontrast images of the lumbar spine were obtained. TheL4-L5 level and access path were chosen. The skin was then marked, prepped anddraped in the usual sterile fashion. 1% lidocaine used for local anesthesia. With intermittent CT fluoroscopic guidance, a 22-gauge spinal needle was advanced into the right L4-L5 facet joint. Into the joint, 2 mL of 0.5% bupivacaine mixed with 80 mg of Depo-Medrol was injected. The needleswere removed. The patient tolerated the procedure well with no immediate complications. FINDINGS: Postoperative changes at L4-L5 on the left consistent with laminotomyand foraminotomy. Facet arthropathy at L4-L5 on the right and L5-F1utfraaolreh. Preprocedure pain: 4/10 Postprocedure pain: 3/10 with superimposed fullness limitingevaluation. Patient was provided with the scoring sheet to assess postproceduralpain. OPERATORS: Fellow: Kenn Adkins MD Attending: Yamile Dumas MD IMPRESSION Successful CT-guided right L4-L5 facet joint anesthetic and steroidinjection. Preliminary report signed by: Kenn Adkins at 08/05/2019 11:50 AM I, Dr. Yamile Dumas, was present for the entire procedure. I have personally reviewed the image(s) and the residents interpretationand agree with the findings, Yamile Dumas at 08/05/2019 12:33 PM Thank you for letting us participate in the care of this patient. Forquestions regarding this report, please contact the number below. Stephen Roger MD IMG CT ORDERABLES documented in this encounter Visit Diagnoses Diagnosis Lumbar spondylosis Lumbosacral spondylosis without myelopathy documented in this encounter Administered Medications Inactive Administered Medications - up to 3 most recent administrations Medication Order MAR Action Action Date Dose Rate Site methylPREDNISolone acetate (DEPO-Medrol) injection 80 mg 80 mg, Intra-articular, ONCE, 1 dose, On Sun08/05/19 at 1145, Routine Given 08/05/2019 11:26 AM EDT 80 mg documented in this encounter Care Teams Compressor Mechanic Relationship Specialty Start Date End Date Kurtis Kingsley DO [address] [place] [address] PCP - General 09/27/10 03/22/22 documented as of this encounter
--- OUTSIDE RECORDS SUMMARY | 2024-10-27 11:27 | XMS_ITS | Encounter Summary ---
Author Organization [facility] [place] [address] Care Team Providers Care Automotive Diagnostic Technician Name Role Phone Sancho Kurtis PIERRE Primary Care Provider [phone] Reason for Visit * Reason Comments Back Pain * Consultation (Routine) - Closed Specialty Diagnoses / Procedures Referred By Contac t Referred To Contact [facility] Diagnoses Low back pain PAIN: low back pain/ MRI (L) 05/15/18 @ Open MRI Stephen Roger MD [address] [place] [id number] Tawnya Ash MD [facility] [place] [address] Referral ID Status Reason Start Date Expiration Date Visits Re quested Visits Authorized [id number] Closed 08/29/2019 08/28/2020 1 1 Encounter Details Date Type Department Care Team (Late st Contact Info) Description 10/08/2019 1:00 PM EST Office Visit [place] [address] Tawnya Ash MD [facility] [place] [address] Failed back syndrome of lumbar spine Social [...] documented in this encounter Progress Notes * Thais Munroe - 10/08/2019 1:00 PM EST [facility] [place] [address] Phone: PAIN MANAGEMENT CONSULTATION NOTE DATE OF VISIT 10/08/2019 Patient Prasanna Shipman 1970 REFERRING PROVIDER Stephen Roger MD [address] [place] [address] PRIMARY CARE PROVIDER Kurtis Kingsley DO CHIEF COMPLAINT: Prasanna Shipman is a 49 y.o.male with chronic history of back and flank pain , who is seen in consultation at the request of Stephen Roger MD [address] [place] [address]. for evaluation, recommendations, and management.The history is [...] his back pain with significant relief. He notes a recent exacerbation of his symptoms incurred after recreational basketball. He endorses difficulty with flexion and notes that his pain is primary along his right low back with radiation onto his right lower quadrant. He also reports occasional pain along his left low back with no radiation. He reports visiting a number of specialists including his prior spine surgeon, pain specialists at [facility] and a neurologist. He states that for interventions he underwent a number of right side image guided SI joint injections, CT guided Intra-articular injections and an intra-articular hip injectionwith no respite of his symptoms. In reference to medications, he states being given a recommendation for 1800 mg daily of Gabapentin. He reports being advised not to take that prescription after the advisement of his PCP. For now patient is encouraged that he has been focusing on strengthening his core at the gym with the help of a personal care attendant. He reports losing 10-15 pounds recently with no substantial relief ofhis back pain. The patient also reports developing restless leg syndrome approximately 12 years ago after having episode of depression centering around his career and having to change his job. Overall the patient is frustrated and unclear as to what direction to go. Additionally reports: 1. Reports history of Immune Thrombocytopenic purpura; at baseline his platelet count is aronud 75kand he notes a history of an enlarged [...] Interference with activities/ADL: none Exercise/activities: Exercises with clinical trainer at the gym: lost 10-15 pounds [...] 09/10/2018 [facility] RAD CAT SCAN ??? CT GUIDED NERVE BLOCK LUMBAR SINGLE LEVEL 08/05/2019 CT Guided Nerve Block Lumbar Single Level 08/05/2019 [facility] RAD CAT SCAN ??? PRO UNLISTED [...] radiculopathy symptoms. While his physical exam findings arenot consistent with any facetogenic pain, I think [...] Shipman with literature on both LMBBs and Lumbar RFA. #1. We also discussed the risks and benefits for a spinal cord stimulator if patient's symptoms prove refractory to Lumbar Radiofrequency ablation. We provided literature on the spinal cord stimulator. We explained we would first begin with a 7 day trial to assess for any modicum of relief. We alsoexplained that he would require a MRI of his thoracic spine and a psychological evaluation prior tohis trial. We used anatomical models to explain how [...] that these were not going to cure hisproblems but potentially help relieve some of his pain. I thought it would be helpful for him to meet with our new pain psychologist Dr. Lara Bravo. She was able to come in and briefly talk with him and set up an appointment to meet again. I think this will be helpful for him to sort out what hisoptions are. Mr. Shipman agreed with our plans and would like to review the literature provided to decide his nextcourse of action. Prasanna Shipman had the opportunity to ask questions and indicated that all questions were answered to his satisfaction. I have seen the patient and reviewed the resident's above history and I agree with the details as written. I personally interviewed the patient and performed critical or nielsen elements of the physical examination as appropriate. The assessment and management plan were formulated in discussion with meand I agree with them as documented. TAWNYA AHS MD documented in this encounter Plan of Treatment Upcoming Encounters Date Type Department Care Team (Late st Contact Info) Description 01/28/2025 3:30 PM EDT Office [place] [address] Raza Glasgow MD [facility] [place] [address] documented as of this encounter Visit Diagnoses Diagnosis Failed back syndrome of lumbar spine Postlaminectomy syndrome, lumbar region documented in this encounter Care Teams Automotive Diagnostic Technician Relationship Specialty Start Date End Date Kurtis Kingsley DO [address] [facility] [address] [place] [address] PCP - General 09/27/10 03/22/22 documented as of this encounter
--- OUTSIDE RECORDS SUMMARY | 2024-10-27 11:27 | XMS_ITS | Encounter Summary ---
Author Organization [facility] [place] [address] Care Team Providers Care Motor Assembler Name Role Phone Kurtis Kingsley Primary Care Provider [phone] Encounter Details Date Type Department Care Team (Late st Contact Info) Description 04/01/2020 Ancillary Procedure Radiology Library at [facility] [place] [phone] Christian Iyer MD [facility] [place] [address] Social History Tobacco Use Types Packs/Day Years [...] Otolaryngology at [facility] [place] [phone] Raza Glasgow MD [facility] [place] [address] documented as of this encounter Procedures Procedure Name Priority Date/Time Associated Diagnosis Comments FILM LIBRARY STORAGE ONLY DX HIP Routine 04/01/2020 12:00 AM EDT documented in this encounter Results * Film Library- Storage Only DX Hip (04/01/2020 12:00 AM EDT) Narrative LEVI ANGELES - 05/24/2020 8:43 PM EDT This exam is auto-finalizing. It's purpose is for storage only. Christian Iyer MD IMG FILM LIBRARY ORD ERABLES Performing Organization Address City/State/[facility] Co de Phone Number [place], [place] documented in this encounter Visit Diagnoses Not on filedocumented in this encounter Care Teams Motor Assembler Relationship Specialty Start Date End Date Kurtis Kingsley DO [address] [place] [address] PCP - General 09/27/10 03/22/22 documented as of this encounter
--- OUTSIDE RECORDS SUMMARY | 2024-10-27 11:27 | XMS_ITS | Encounter Summary ---
[facility] [place] [address] Care Team Providers Care Poolroom/Poolhall Manager Name Role Phone Kurtis Kingsley DO Primary Care Provider Encounter Details Date Type Department Care Team (Late st Contact Info) Description 10/14/2019 Orders Only Hematology [place] [phone] Mickie Miranda RN Idiopathic thrombocytopenic purpura Social History Tobacco Use [...] 3:30 PM EDT Office [place] [phone] Raza Glasgow MD [facility] [place] [address] documented as of this encounter Visit Diagnoses Diagnosis Idiopathic thrombocytopenic purpura Immune thrombocytopenic purpura documented in this encounter Care Teams Poolroom/Poolhall Manager Relationship Specialty Start Date End Date Kurtis Kingsley DO [facility] [address] [place] [address] PCP - General 09/27/10 03/22/22 documented as of this encounter
--- OUTSIDE RECORDS SUMMARY | 2024-10-27 11:27 | XMS_ITS | Encounter Summary ---
Author [facility] [place] [address] Care Team Providers Care Finishing Supervisor Plastic Sheets Name Role Phone SanchoKurtis mcdaniel Primary Care Provider [phone] Encounter Details Date Type Department Care Team (Late st Contact Info) Description 01/26/2020 External Results Hematology [place] [phone] Theroux, Marissa E Thrombocytopenia Social History Tobacco Use Types Packs/Day [...] 3:30 PM EDT Office [place] [address] Raza Glasgow MD [facility] [address] documented as of this encounter Procedures Procedure Name Priority Date/Time Associated Diagnosis Comments CBC (WITH DIFF) STAT 01/14/2020 8:05 AM EDT Thrombocytopenia documented in this encounter Results * (ABNORMAL) [...] specimen (specimen) 01/14/2020 8:05 AM EDT Norma Quarles Hema AUTOMATIC CLIPPER HEMATOLOGY ORDERAB LES EXTERNAL LAB documented in this encounter Visit Diagnoses Diagnosis Thrombocytopenia Thrombocytopenia, unspecified documented in this encounter Care Teams Finishing Supervisor Plastic Sheets Relationship Specialty Start Date End Date Kurtis Kingsley DO [address] [place] [address] PCP - General 09/27/10 03/22/22 documented as of this encounter
--- OUTSIDE RECORDS SUMMARY | 2024-10-27 11:27 | XMS_ITS | Encounter Summary ---
Author Organization [facility] [place] [address] Care Team Providers Care Dolphin Trainer Name Role Phone Kurtis Kingsley Primary Care Provider [phone] Encounter Details Date Type Department Care Team (Late st Contact Info) Description 05/17/2018 Ancillary Procedure Radiology Library at [facility] [place] [place] [phone] Christian Iyer MD [facility] [place] [address] Social History Tobacco Use Types Packs/Day Years [...] PM EDT Office Visit Otolaryngology at [facility] [place] [phone] Raza Glasgow MD [facility] [place] [address] documented as of this encounter Procedures Procedure Name Priority Date/Time Associated Diagnosis Comments FILM LIBRARY STORAGE ONLY MR SPINE Routine 05/17/2018 12:00 AM EDT documented in this encounter Results * Film Library- Storage Only MR Spine (05/17/2018 12:00 AM EDT) Narrative BRIDGETTE - 05/25/2020 11:24 AM EDT This exam is auto-finalizing. It's purpose is for storage only. Christian Iyer MD IMG FILM LIBRARY ORD ERABLES Performing Organization Address City/State/[facility] Co de Phone Number [place], [place] documented in this encounter Visit Diagnoses Not on filedocumented in this encounter Care Teams Dolphin Trainer Relationship Specialty Start Date End Date Kurtis Kingsley DO [address] [place] [address] PCP - General 09/27/10 03/22/22 documented as of this encounter
--- OUTSIDE RECORDS SUMMARY | 2024-10-27 11:27 | XMS_ITS | Encounter Summary ---
[place] [address] Care Team Providers Care Drug Coordinator Name Role Phone Sancho Kurtis PIERRE Primary Care Provider Encounter Details Date Type Department Care Team (Latest Contact Info) Description 10/24/2017 1:49 PM EST - 10/24/2017 11:59 PM EST Hospital Encounter Hematology [place] [phone] Thrombocytopenia; Idiopathic thrombocytopenic purpura; Non morbid obesity due to excess calories; [...] 3:30 PM EDT Office [place] [phone] Raza Glasgow MD [facility] [place] [address] Scheduled Orders Name Type Priority Associated Diagnoses Orde r Schedule CBC (with Diff) Lab STAT Idiopathic thrombocytopenic purpura 1 Occurrences starting 10/24/2017 until 10/24/2017 CBC (with Diff) Lab STAT Thrombocytopenia Non morbid obesity due to excess calories Multiple lipomas 1 Occurrences starting 10/24/2017 until 10/24/2017 documented as of this encounter Procedures Procedure Name Priority Date/Time Associated Diagnosis Comments HEMOGRAM Routine 10/24/2017 2:04 PM EST Thrombocytopenia DIFFERENTIAL, AUTOMATED Routine 10/24/2017 2:04 PM EST Thrombocytopenia CBC (WITH DIFF) Routine 10/24/2017 2:04 PM EST Thrombocytopenia documented in this encounter Results * Differential, Automated (10/24/2017 2:04 PM EST) Neutrophil % 51.0 % [facility] Neutrophil Absolute 2.63 1.70 - 6.10 x10(3)/[facility] Lymph % 39.0 % [facility] Lymphocytes Abs 2.0 0.9 - 3.2 x10(3)/[facility] Monocyte % 7.8 % [facility] Monocyte Abs 0.4 0.3 - 0.9 x10(3)/[facility] Eos % 1.4 % [facility] Eosinophils Abs 0.1 0.0 - 0.4 x10(3)/[facility] Basophil % 0.4 % [facility] Baso Absolute 0.0 0.0 - 0.1 x10(3)/[facility] Immature Gran % 0.40 % [facility] Comment: Immature granulocytes(IG's)percentage and absolute count will include metamyelocytes, myelocytes, and promyelocytes. Blood smears from CBCs yielding IG's will be scanned manually for concordance. If this scan disagrees with the automated IG or if promyelocytes are noted, a manual differential will be performed. Immature Gran Absolute 0.02 0.00 - 0.04 x10(3)/mcL [facility] Blood specimen (specimen) 10/24/2017 2:04 PM EST 10/24/2017 2:32 PM EST Narrative Resulting Agency Comment Spec In Lab Norma Quarles Hema SWATHI HEMATOLOGY ORDERAB LES [facility] [place] [address] * (ABNORMAL) Hemogram (10/24/2017 2:04 PM EST) White Blood Cell 5.2 4.0 - 9.5 x10(3)/[facility] LABORAT[facility] Red Blood Cell 5.38 4.58 - 5.54 x10(6)/[facility] Hemoglobin 16.3 13.7 - 16.5 gm/dL [facility] Hematocrit 44.2 40.5 - 48.5 % [facility] Mean Cell Volume 82.2(L) 82.9 - 93.1 [facility] Mean Cell Hemoglobin 30.3 27.5 - 32.1 pg [facility] Mean Cell Hemoglobin Concentration 36.9(H) 32.0 - 35.7 gm/dL [facility] Platelet 84(L) 145 - 357 x10(3)/[facility] RDW Standard Deviation 38.3 36.0 - 45.0 [facility] RDW coefficient of variation 12.8 11.4 - 13.8 % [facility] Mean Platelet Volume 11.5 7.6 - 12.9 [facility] NRBC% auto 0.0 % [facility] NRBC Absolute 0.000 0.000 - 0.000 x10(3)/[facility] Blood specimen (specimen) 10/24/2017 2:04 PM EST 10/24/2017 2:32 PM EST Narrative Resulting Agency Comment Spec In Lab Norma Robina Garrido HAND SPRING REPAIRER HELPER HEMATOLOGY ORDERAB LES [facility] [place] [address] documented in this encounter Visit Diagnoses Diagnosis Thrombocytopenia Thrombocytopenia, unspecified Idiopathic thrombocytopenic purpura Immune thrombocytopenic purpura Non morbid obesity due to excess calories Multiple lipomas Lipoma of unspecified site documented in this encounter Care Teams Drug Coordinator Relationship Specialty Start Date End Date Kurtis Kingsley DO [address] [place] [address] PCP - General 09/27/10 03/22/22 documented as of this encounter
--- OUTSIDE RECORDS SUMMARY | 2024-10-27 11:27 | XMS_ITS | Encounter Summary ---
Author Organization [facility] [place] [address] Care Team Providers Care Stock Control Supervisor Name Role Phone Kurtis Kingsley DO Primary Care Provider Reason for Visit * Reason Comments Follow-up Encounter Details Date Type Department Care Team (Late st Contact Info) Description 10/08/2019 4:00 PM EST Office Visit Hematology [place] [address] Maikel Rebolledo MD [facility] [address] [place] [address] Norma Alejandra APRN [facility] [address] [place] [address] Thrombocytopenia; Chronic midline low back pain without sciatica Social History Tobacco Use Types Packs/Day Years [...] 36.8 ??C (98.2 ??F) 10/08/2019 4:12 PM ES T Respiratory Rate 18 10/08/2019 4:12 PM EST Oxygen Saturation 98% 10/08/2019 4:12 PM EST Inhaled Oxygen Concentration - - Weight 97.4 kg (214 lb 12.8 oz) 10/08/2019 4:12 PM EST Height 175.5 cm (5' 9.09) 10/08/2019 4:12 PM ES T Body Mass Index 31.63 10/08/2019 4:12 PM EST documented in this encounter Progress Notes * Hema Norma C, STOCK SHEETS CLEANER INSPECTOR - 10/08/2019 4:00 PM EST Images from [...] It is nonradiating. He does not note any rapid or irregular heartbeat. Over the past year Anhtony has started making exercise and nutrition a [...] to visit. 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 Family History: - Mother: was tested negative for PLT antigen 1; never had low plt count; - Father: htn, dlp - Siblings: brother and sister: both healthy; His sister also had low plt count at and was transfused; no issues now. Brother is a home demonstration agent at [employer]. No FH of ITP or other hematological [...] review spleen. It is 15.[address] [facility] CT scan Assessment/Plan: 49 y/o M with presenting for evaluation of thrombocytopenia. His work up did not reveal any causative factor. Platelets remain stable. Prasanna has had knee and back surgery with low platelets without any issues with bleeding. #. Thrombocytopenia -Platelet count down [...] 3:30 PM EDT Office [place] [address] Raza Glasgow MD [facility] [place] [address] documented as of this encounter Visit Diagnoses Diagnosis Thrombocytopenia Thrombocytopenia, unspecified Chronic midline low back pain without sciatica documented in this encounter Care Teams Stock Control Supervisor Relationship Specialty Start Date End Date Kurtis Kingsley DO [address] [place] [address] [address] [facility] 1 [place] [address] PCP - General 09/27/10 03/22/22 documented as of this encounter
--- OUTSIDE RECORDS SUMMARY | 2024-10-27 11:27 | XMS_ITS | Encounter Summary ---
Author Organization [facility] [place] [address] Care Team Providers Care Clay Pigeon Loader Name Role Phone SanchoKurtis mcdaniel Primary Care Provider [phone] Encounter Details Date Type Department Care Team (Late st Contact Info) Description 01/04/2018 External Results Hematology [place] [address] TherouxMarissa Social History Tobacco Use Types Packs/Day [...] 3:30 PM EDT Office [place] [address] Raza Glasgow MD [facility] [place] [address] documented as of this encounter Procedures Procedure Name Priority Date/Time Associated Diagnosis Comments CBC (WITH DIFF) Routine 01/04/2018 8:54 AM EST CBC (WITH DIFF) Routine 12/18/2017 8:06 AM EST documented in this encounter Results * (ABNORMAL) CBC (with Diff) (01/04/2018 8:54 AM EST) White Blood Cell 5.56 4.4 - 10.8 EXTERNAL LAB Hemoglobin 17.6(EXTER NAL/ABN) 13.5 - 17.5 EXTERNAL LAB Hematocrit 49.0 40.0 - 50.0 EXTERNAL LAB Platelet 75(EXTERNA L/ABN) 130 - 400 EXTERNAL LAB Blood specimen (specimen) 01/04/2018 8:54 AM EST Historical Provider HEMATOLOGY ORDERA BLES EXTERNAL LAB * (ABNORMAL) CBC (with Diff) (12/18/2017 8:06 AM EST) White Blood Cell 5.03 4.4 - 10.8 EXTERNAL LAB Hemoglobin 16.3 13.5 - 17.5 EXTERNAL LAB Hematocrit 45.6 40.0 - 50.0 EXTERNAL LAB Platelet 75(EXTERNA L/ABN) 130 - 400 EXTERNAL LAB Neutrophil Absolute (ANC) - Automated 2.21 1.26 - 6.7 EXTERNAL LAB Lymph Absolute Manual 2.26 1.2 - 3.4 EXTERNAL LAB Blood specimen (specimen) 12/18/2017 8:06 AM EST Historical Provider HEMATOLOGY ORDERA BLES EXTERNAL LAB documented in this encounter Visit Diagnoses Not on filedocumented in this encounter Care Teams Clay Pigeon Loader Relationship Specialty Start Date End Date Kurtis Kingsley DO [address] [place] [address] PCP - General 09/27/10 03/22/22 documented as of this encounter
--- OUTSIDE RECORDS SUMMARY | 2024-10-27 11:27 | XMS_ITS | Encounter Summary ---
Author Organization [facility] [place] [address] Care Team Providers Care Commercial Loan Underwriter Name Role Phone Kurtis Kingsley Primary Care Provider [phone] Encounter Details Date Type Department Care Team (Late st Contact Info) Description 02/19/2019 Ancillary Procedure Radiology Library at [facility] [place] [phone] Aki Young MD [facility] [place] [address] Social History Tobacco Use Types Packs/Day Years [...] Visit Otolaryngology at [facility] [place] [address] Raza Glasgow MD [facility] [place] [address] documented as of this encounter Procedures Procedure Name Priority Date/Time Associated Diagnosis Comments FILM LIBRARY STORAGE ONLY DX WRIST Routine 02/19/2019 12:00 AM EDT documented in this encounter Results * Film Library- Storage Only DX Wrist (02/19/2019 12:00 AM EDT) Narrative LEVI ANGELES - 03/14/2019 1:03 PM EDT This exam is auto-finalizing. It's purpose is for storage only. Aki Young MD IMG FILM LIBRARY ORD ERABLES Performing Organization Address City/State/[facility] Co de Phone Number [place], [place] documented in this encounter Visit Diagnoses Not on filedocumented in this encounter Care Teams Commercial Loan Underwriter Relationship Specialty Start Date End Date Kurtis Kingsley DO [address] [place] [address] PCP - General 09/27/10 03/22/22 documented as of this encounter
--- OUTSIDE RECORDS SUMMARY | 2024-10-27 11:27 | XMS_ITS | Encounter Summary ---
Author Organization [facility] [place] [address] Care Team Providers Care Wet Process Assistant Head Miller Name Role Phone Kurtis Kingsley DO Primary Care Provider Encounter Details Date Type Department Care Team (Latest Contact Info) Description 01/04/2018 External Results Hematology [place] [phone] Marissa Redding Idiopathic thrombocytopenic purpura Social History Tobacco Use [...] 3:30 PM EDT Office [place] [phone] Raza Glasgow MD [facility] [address] documented as of this encounter Visit Diagnoses Diagnosis Idiopathic thrombocytopenic purpura Immune thrombocytopenic purpura documented in this encounter Care Teams Wet Process Assistant Head Miller Relationship Specialty Start Date End Date Kurtis Kingsley DO [address] [place] [address] [address] [place], [place] [address] PCP - General 09/27/10 03/22/22 documented as of this encounter
--- OUTSIDE RECORDS SUMMARY | 2024-10-27 11:27 | XMS_ITS | Encounter Summary ---
Author Organization Formerly [facility] [place] [address] Care Team Providers Care Computer Installation Engineer Name Role Phone Kurtis Kingsley DO Primary Care Provider Reason for Visit * Reason Comments Right Wrist Pain * Consultation (Routine) - Closed Specialty Diagnoses / Procedures Referred By Den tamayo Referred To Contact Orthopaedics Diagnoses R Wrist pain Kurtis Kingsley DO [address] [place] [address] [facility] [address] [place] [phone] Referral ID Status Reason Start Date Expiration Date V isits Requested Visits Authorized [id number] Closed Consult, Test & Treat Connection [facility] 03/09/2019 03/08/2020 1 1 Encounter Details Date Type Department Care Team (Late st Contact Info) Description 03/14/2019 3:40 PM EDT Office [place] [address] Petr Gomes PA [address] [place] [address] Tendinitis of right wrist Social History Tobacco Use Types Packs/Day Years [...] kg (210 lb) 03/14/2019 3:29 PM EDT v erbal Height 175.3 cm (5' 9) 03/14/2019 3:29 PM EDT v erbal Body Mass Index 31.01 03/14/2019 3:29 PM EDT documented in this encounter Progress Notes * Petr Gomes PA - 03/14/2019 3:40 PM EDT PATIENT NAME: Prasanna Shipman AGE: 48 y.o. MR#: [id number] DATE OF VISIT: 03/14/2019 DATE OF INJURY/ONSET: [...] on his right. Patient was evaluated by [facility] and was not found to have a fracture. He had continuedpain despite splinting and Tylenol use and they did an MRI which was significant for tendinitis of the first extensor compartment. The patient has been using a thumb spica brace but states it is not helped very much and taking Tylenol 1200 mg/day. He [...] 09/10/2018 CT Guided Injection SI Joint 09/10/2018 [facility] RAD CAT SCAN ??? PRO UNLISTED [...] drugs, Electrical stimulation (TENS/Transcutaneous Electrical Nerve Stimulation), Injection of steroids or cortisone, Prior surgery for [...] less than $50,000 # People Supported 5 Tanzanian, , No, not Tanzanian// Race White Health Literacy Extremely Currently working [...] wrist as well as radially and ulnarly deviate.Pain is elicited with extension and ulnar deviation. Orthopedic testing: Obed-positive Neurovascular: Sensation and motor function are intact along the median, radial and ulnar nerve roots. His hand is well-perfused, distal radial pulse 2+. DIAGNOSTIC STUDIES: X-ray and MRI were both personally reviewed with the patient and demonstrate noacute fracture dislocation. The MRI was significant for extensor Salome Vitas of the first extensor compartment. ASSESSMENT: Mr. Shipman presents with right wrist pain for the past 6 weeks that has been unresponsive to thumb spica bracing and Tylenol. He did [...] had a markedly positive Obed exam indicative ofde Quervain's tenosynovitis. We discussed first- line management is generally immobilization with a thumb spica brace and anti- inflammatory medications. The patient does however have ITP and is unableto take ibuprofen or Aleve. Since it is not gotten better with bracing over the past 6 weeks it wasdiscussed that he could try a cortisone injection [...] to be the site of injection. The patientwas confirmed to have no allergies to betadine, local anesthetics, or corticosteroids. The patient was reminded that blood glucose can be transiently elevated by the corticosteroid injection. The patient was counseled about the potential risks of the procedure, including infection, bleeding, incomplete relief of symptoms, and skin blanching at the injection site. I also discussed with the patientthat cortisone is not healthy for muscle tendons or cartilage and that there is an increased risk with repeated injections. The skin was prepped widely over the radial aspect of the wrist with alcohol and betadine. Using sterile technique, the needle was advanced into the tendon sheath within the first extensor compartment. A steroid injection was then performed using 2cc 1% plain Lidocaine and 2cc (12 mg) of Celestone.The skin was cleaned with alcohol and a band-aid was applied. The patient tolerated the procedure well. The above documentation was completed using Mapp[employer] voice recognition software. documented in this encounter Plan of Treatment Upcoming Encounters Date Type Department Care Team (Late st Contact Info) Description 01/28/2025 3:30 PM EDT Office [place] [address] Raza Glasgow MD [facility] [place] [address] documented as of this encounter Visit Diagnoses Diagnosis Tendinitis of right wrist Other tenosynovitis of hand and wrist documented in this encounter Administered Medications Inactive Administered Medications - up to 3 most recent administrations Medication Order MAR Action Action Date Dose Rate Site betamethasone acetate-betamethasone sodium phosphate (CELESTONE) injection 12 mg 12 mg, Intra-articular, ONCE, 1 dose, On Sun03/14/19 at 1630, Routine Given 03/14/2019 4:14 PM EDT 12 mg lidocaine (XYLOCAINE) 10 mg/mL (1 %) injection 20 mg 20 mg, Subcutaneous, ONCE, 1 dose, On Sun03/14/19 at 1630, Routine Given 03/14/2019 4:14 PM EDT 20 mg documented in this encounter Care Teams Computer Installation Engineer Relationship Specialty Start Date End Date Kurtis Kingsley DO [address] [place] [address] PCP - General 09/27/10 03/22/22 documented as of this encounter
--- OUTSIDE RECORDS SUMMARY | 2024-10-27 11:27 | XMS_ITS | Encounter Summary ---
[place] [address] Care Team Providers Care Newspaper Columnist Name Role Phone Kurtis Kingsley DO Primary Care Provider [phone] Reason for Visit * Reason Onset Date Comments Questions 12/17/2017 Encounter Details Date Type Department Care Team (Late st Contact Info) Description 12/17/2017 Telephone Hematology [place] [phone] Belinda Pritchett, RN Questions Social History Tobacco Use Types Packs/Day [...] encounter Miscellaneous Notes * Telephone Encounter - Belinda Pritchett RN - 12/17/2017 1:10 PM EST Images from the original note were not included. RN received the following message from clinical secretary board of commissioners: pt. having abdominal pain Call patient Received: Today ? Johnna Steiner Hem Onc Triage Hematology ? Prasanna called, he's been having some pain on his left side above his hip among other abdominal pains. He said Dr. Rebolledo wanted him to keep us in the loop on any changes he has. He said he brother is a doctor and thought he may have some blockage and need a colonoscopy. He was wondering if there was anything he should do or anything Dr. Rebolledo recommends. [phone] RN spoke with patient and he states for the better part of 5-6 months he been having hip pain on left side. Located in the bone above his hip. Yesterday got to the point that he has to lift his leg up to get out of the car. Also c/o pressure below belly button. Pain is located towards back as well,and he states this makes him believe it [...] 3:30 PM EDT Office [place] [address] Rzaa Glasgow MD [facility] [address] documented as of this encounter Visit Diagnoses Not on filedocumented in this encounter Care Teams Newspaper Columnist Relationship Specialty Start Date End Date Kurtis Kingsley DO [address] [place] [address] PCP - General 09/27/10 03/22/22 documented as of this encounter
--- OUTSIDE RECORDS SUMMARY | 2024-10-27 11:27 | XMS_ITS | Encounter Summary ---
Author Organization [facility] [place] [address] Care Team Providers Care Receptionist Airline Lounge Name Role Phone SanchoKurtis mcdaniel Primary Care Provider Encounter Details Date Type Department Care Team (Latest Contact Info) Description 01/01/2018 - 01/01/2018 11:59 PM [facility] Hospital Encounter Radiology Library at [facility] [place] [address] Maikel Rebolledo MD [facility] HEMATOLOGY [place] [address] Discharge Disposition: Home Social History Tobacco Use [...] 3:30 PM EDT Office Visit [place] [address] Raza Glasgow MD [facility] [place] [address] documented as of this encounter Procedures Procedure Name Priority Date/Time Associated Diagnosis Comments FILM LIBRARY STORAGE ONLY CT ABDOMEN AND PELVIS Routine 01/01/2018 12:00 AM EST documented in this encounter Results * Film Library- Storage Only CT Abdomen & Pelvis (01/01/2018 12:00 AM EST) Narrative [facility] - 01/04/2018 4:59 PM EST This exam is for storage only and is auto-finalizing. Maikel Rebolledo MD IMG FILM LIBRARY ORD ERABLES [place], [place] documented in this encounter Visit Diagnoses Not on filedocumented in this encounter Care Teams Receptionist Airline Lounge Relationship Specialty Start Date End Date Kurtis Kingsley DO [address] [place] [address] PCP - General 09/27/10 03/22/22 documented as of this encounter
--- OUTSIDE RECORDS SUMMARY | 2024-10-27 11:28 | XMS_ITS | Encounter Summary ---
Author Organization [facility] [place] [address] Care Team Providers Care Supervisor Core Shop Name Role Phone SanchoKurtis mcdaniel Primary Care Provider Encounter Details Date Type Department Care Team (Late st Contact Info) Description 12/09/2014 Interpretation Only Radiology [address] [place] [address] [place] [address] Unknown None Social History Tobacco Use Types [...] 3:30 PM EDT Office [place] [address] Raza Glasgow MD [facility] OTOLARYNGOLOGY [place] [address] documented as of this encounter Procedures Procedure Name Priority Date/Time Associated Diagnosis Comments XR FLUORO NO RAD <1HR - RADIOLOGY USE Routine 12/09/2014 7:52 AM EST documented in this encounter Results * XR Fluoro <1Hr - Radiology Use (12/09/2014 7:52 AM EST) Anatomical Region Laterality Modality N/A Radiographic Melissa ging 12/09/2014 7:52 AM EST Narrative 12/09/2014 7:52 AM EST APD Historical Result Principal Field Adjuster: ??PIYUSH ?TAIWO INTRAOPERATIVE FLUOROSCOPY: A total of 6.0 seconds (483.84 mrad) of intraoperative fluoroscopy was used by Dr Roger. ?? There was no Radiologist present during the exam. One spot image documents radiopaque instrument indicating the L4-5 level. ??There was no Radiologist present during the exam. Piyush Britt MD [facility]/az [id number] CC: Procedure Note Unknown - 05/05/2019 APD Historical Result Principal Field Adjuster: PIYUSH BRITT INTRAOPERATIVE FLUOROSCOPY: A total of 6.0 seconds (483.84 mrad) of intraoperative fluoroscopy wasused by Dr Roger. There was no Radiologist present during the exam. One spot image documentsradiopaque instrument indicating the L4-5 level. There was no Radiologist present during the exam. Piyush Britt MD [facility] [id number] CC: Unknown IMG FLUORO ORDERABLE S documented in this encounter Visit Diagnoses Not on filedocumented in this encounter Care Teams Supervisor Core Shop Relationship Specialty Start Date End Date Kurtis Kingsley DO [address] [place] [address] PCP - General 09/27/10 03/22/22 documented as of this encounter
--- OUTSIDE RECORDS SUMMARY | 2024-10-27 11:28 | XMS_ITS | Encounter Summary ---
Author Organization [facility] [place] [address] Care Team Providers Care Java Programming Professor Name Role Phone Kurtis Kingsley DO Primary Care Provider Encounter Details Date Type Department Care Team (Latest Contact Info) Description 11/17/2015 9:30 AM EST - 11/17/2015 11:59 PM [facility] Hospital Encounter Hematology [place] [address] Thrombocytopenia Discharge Disposition: Home Social History Tobacco [...] he is taking .5 mg 10/19/2015 07/04/2023 gabapentin (NEURONTIN) 300 mg capsule Take 300 mg by mouth daily. 12/15/2015 pramipexole (MIRAPEX) 0.25 mg tablet Take 0.5 mg by mouth daily. 12/15/2015 FEXOFENADINE HCL (DAVID ORAL) 09/16/2009 03/14/2019 cycloSPORINE (RESTASIS) 0.05 % ophthalmic emulsion 09/16/2009 11/01/2016 documented as of this encounter Plan of Treatment Upcoming Encounters Date Type Department Care Team (Late st Contact Info) Description 01/28/2025 3:30 PM EDT Office [place] [phone] Raza Glasgow MD [facility] [place] [address] documented as of this encounter Procedures Procedure Name Priority Date/Time Associated Diagnosis Comments HEMOGRAM Routine 11/17/2015 9:45 AM EST Thrombocytopenia DIFFERENTIAL, AUTOMATED Routine 11/17/2015 9:45 AM EST Thrombocytopenia CBC (WITH DIFF) Routine 11/17/2015 9:45 AM EST Thrombocytopenia documented in this encounter Results * Differential, Automated (11/17/2015 9:45 AM EST) Neutrophil % 49.3 % CERNER MILLENNIUM Neutrophil Absolute 2.61 1.50 - 6.30 x10(3)/mcL CERNER MILLENNIUM Lymph % 41.0 % CERNER MILLENNIUM Lymphocytes Abs 2.2 1.0 - 3.6 x10(3)/mcL CERNER MILLENNIUM Monocyte % 6.8 % CERNER MILLENNIUM Monocyte Abs 0.4 0.2 - 1.0 x10(3)/mcL CERNER MILLENNIUM Eos % 2.1 % CERNER MILLENNIUM Eosinophils Abs 0.1 0.0 - 0.5 x10(3)/mcL CERNER MILLENNIUM Basophil % 0.4 % CERNER MILLENNIUM Baso Absolute 0.0 0.0 - 0.2 x10(3)/mcL CERNER MILLENNIUM Immature Gran % 0.40 % CERN ER MILLENNIUM Comment: Immature granulocytes(IG's)percentage and absolute count will include metamyelocytes, myelocytes, and promyelocytes. Blood smears from CBCs yielding IG's will be scanned manually for concordance. If this scan disagrees with the automated IG or if promyelocytes are noted, a manual differential will be performed. Immature Gran Absolute 0.02 0.00 - 0.05 x10(3)/mcL CERNER MILLENNIUM Blood specimen (specimen) 11/17/2015 9:45 AM EST 11/17/2015 9:53 AM EST Narrative Resulting Agency Comment Spec In Lab Maikel Rebolledo MD HEMATOLOGY ORDERABLE S GIO BRITOENNIUM * (ABNORMAL) Hemogram (11/17/2015 9:45 AM EST) White Blood Cell 5.3 4.0 - 10.0 x10(3)/mcL CERNER MILLENNIUM Red Blood Cell 5.49 4.63 - 6.08 x10(6)/mcL CERNER MILLENNIUM Hemoglobin 16.3 13.7 - 17.5 gm/dL CERNER MILLENNIUM Hematocrit 46.7 40.0 - 51.0 % CERNER MILLENNIUM Mean Cell Volume 85.1 79.0 - 92.0 fL CERNER MILLENNIUM Mean Cell Hemoglobin 29.7 25.6 - 32.2 pg CERNER MILLENNIUM Mean Cell Hemoglobin Concentration 34.9 32.0 - 36.5 gm/dL CERNER MILLENNIUM Platelet 78(L) 145 - 370 x10(3)/mcL CERNER MILLENNIUM RDW Standard Deviation 38.5 35.0 - 46.0 fL CERNER MILLENNIUM RDW coefficient of variation 12.6 10.9 - 14.4 % CERNER MILLENNIUM Mean Platelet Volume 11.4 9.0 - 12.0 fL CERNER MILLENNIUM Blood specimen (specimen) 11/17/2015 9:45 AM EST 11/17/2015 9:53 AM EST Narrative Resulting Agency Comment Spec In Lab Maikel Rebolledo MD HEMATOLOGY ORDERABLE S GIO MOREL documented in this encounter Visit Diagnoses Diagnosis Thrombocytopenia Thrombocytopenia, unspecified documented in this encounter Care Teams Java Programming Professor Relationship Specialty Start Date End Date Kurtis Kingsley DO [address] [place] [address] PCP - General 09/27/10 03/22/22 documented as of this encounter
--- OUTSIDE RECORDS SUMMARY | 2024-10-27 11:28 | XMS_ITS | Encounter Summary ---
Author Organization [facility] [place] [address] Care Team Providers Care Vibration Engineer Name Role Phone SanchoKurtis mcdaniel Primary Care Provider Encounter Details Date Type Department Care Team (Late st Contact Info) Description 11/30/2015 External Results Hematology [place] [phone] Maikel Rebolledo MD [facility] [address] [place] [address] Social History Tobacco Use Types Packs/Day Years [...] 3:30 PM EDT Office [place] [address] Raza Glasgow MD [facility] [place] [address] documented as of this encounter Procedures Procedure Name Priority Date/Time Associated Diagnosis Comments HELICOBACTER PYLORI ANTIGEN STOOL Routine 11/15/2015 2:36 PM EST documented in this encounter Results * Helicobacter pylori Antigen Stool (11/15/2015 2:36 PM EST) H pylori Antigen, Stool negative EXTERNAL LAB Stool specimen (specimen) 11/15/2015 2:36 PM EST Maikel Rebolledo MD MICROBIOLOGY - GENER AL ORDERABLES EXTERNAL LAB documented in this encounter Visit Diagnoses Not on filedocumented in this encounter Care Teams Vibration Engineer Relationship Specialty Start Date End Date Kurtis Kingsley DO [address] [place] [address] PCP - General 09/27/10 03/22/22 documented as of this encounter
--- OUTSIDE RECORDS SUMMARY | 2024-10-27 11:28 | XMS_ITS | Encounter Summary ---
Author Organization [facility] [place] [address] Care Team Providers Care Batter Out Name Role Phone Kurtis Kingsley Primary Care Provider Encounter Details Date Type Department Care Team (Latest Contact Info) Description 12/07/2015 External Results Hematology [place] [phone] Maikel Rebolledo MD [facility] [address] [place] [address] ITP (idiopathic thrombocytopenic purpura) Social History Tobacco Use Types Packs/Day Years [...] 3:30 PM EDT Office Visit [place] [address] Raza Glasgow MD [facility] OTOLARYNGOLOGY [place], [place] [phone] documented as of this encounter Procedures Procedure Name Priority Date/Time Associated Diagnosis Comments CBC (WITH DIFF) STAT 12/02/2015 3:24 PM EST ITP (idiopathic thrombocytopenic purpura) documented in this encounter Results * (ABNORMAL) CBC (with Diff) (12/02/2015 3:24 PM EST) White Blood Cell 5.14(Exter nal Lab) 4.4 - 10.8 EXTERNAL LAB Hemoglobin 16.1(Exter nal Lab) 13.5 - 17.5 EXTERNAL LAB Hematocrit 44.5(Exter nal Lab) 40.0 - 50.0 EXTERNAL LAB Platelet 92(EXTERNA L/ABN) 130 - 400 EXTERNAL LAB Neutrophil Absolute (ANC) - Automated 2.65(Exter nal Lab) 1.2 - 6.7 EXTERNAL LAB Blood specimen (specimen) 12/02/2015 3:24 PM EST Maikel Rebolledo MD HEMATOLOGY ORDERABLE S EXTERNAL LAB documented in this encounter Visit Diagnoses Diagnosis ITP (idiopathic thrombocytopenic purpura) Immune thrombocytopenic purpura documented in this encounter Care Teams Batter Out Relationship Specialty Start Date End Date Kurtis Kingsley DO [address] [place] [address] PCP - General 09/27/10 03/22/22 documented as of this encounter
--- OUTSIDE RECORDS SUMMARY | 2024-10-27 11:28 | XMS_ITS | Encounter Summary ---
Author Organization [facility] [place] [address] Care Team Providers Care Computer Tech Name Role Phone SanchoKurtis mcdaniel Primary Care Provider Encounter Details Date Type Department Care Team (Late st Contact Info) Description 04/14/2016 Orders Only [place]ematology [place] [phone] Partha Eisenberg MD [facility] HEMATOLOGY/[place] [address] ITP (idiopathic thrombocytopenic purpura) Social History Tobacco [...] 3:30 PM EDT Office [place] [address] Raza Glasgow MD [facility] [place] [address] documented as of this encounter Results * (ABNORMAL) Comprehensive metabolic panel (non-fasting) (04/19/2016 3:18 PM EDT) Glucose 84 65 - 199 mg/dL [facility] Comment:Diabetes: >=200 mg/d L plus symptoms Blood Urea Nitrogen 20 10 - 20 mg/dL [facility] Creatinine 1.33 0.80 - 1.50 mg/dL [facility] Comment: Please note that the pediatric reference intervals supplied above were not validated at [facility]. Results from pediatric patients should be interpreted in conjunction to the patient's age, height and muscle mass. Sodium 140 135 - 145 mmol/L [facility] Potassium 4.0 3.5 - 5.0 mmol/L [facility] Comment: Please note: ??Patients with WBC >100,000 may have falsely elevated Potassium levels. ??For accurate Potassium quantification in these patients send serum separator tube (gold top) for subsequent determinations. ??Contact the Clinical Chemistry Laboratory if there are any questions. Chloride 101 98 - 107 mmol/L [facility] Carbon Dioxide 23 22 - 31 mmol/L [facility] Anion Gap 16(H) 5 - 15 mmol/L [facility] Calcium 9.3 8.5 - 10.5 mg/dL [facility] Protein, Total 7.4 6.1 - 8.0 gm/dL [facility] Albumin 4.9 3.2 - 5.2 gm/dL [facility] Aspartate Aminotransferase 19 0 - 39 unit/L [facility] Alanine Aminotransferase 37 0 - 55 unit/L [facility] Alkaline Phosphatase 73 40 - 120 unit/L [facility] Bilirubin, Total 0.4 0.2 - 1.3 mg/dL [facility] Bilirubin, Direct 0.1 0.0 - 0.3 mg/dL [facility] Est Glomerular Filtration Rate 59(L) >=60 [facility] Comment: This estimated GFR (eGFR) value was calculated using the MDRD equation which has been validated on patients between the ages of 18 and 70. The MDRD should not be used to assess kidney function in patients < 18 years of age or in patients with extremes of body mass, or in patients with acute kidney failure. This value should be multiplied by 1.2 for patients. For further information please copy and paste the following links into your internet browser. http://[employer]iData/DHnkdep http://[employer]/DHMCnkf Blood specimen (specimen) 04/19/2016 3:18 PM EDT 04/19/2016 3:27 PM EDT Narrative Resulting Agency Comment Spec In Lab Maikel Rebolledo MD CHEMISTRY ORDERABLES Performing Organization Address City/State/[facility] Co de Phone Number [facility] [place] [address] documented in this encounter Visit Diagnoses Diagnosis ITP (idiopathic thrombocytopenic purpura) Immune thrombocytopenic purpura documented in this encounter Care Teams Computer Tech Relationship Specialty Start Date End Date Kurtis Kingsley DO [address] [place] [address] PCP - General 09/27/10 03/22/22 documented as of this encounter
--- OUTSIDE RECORDS SUMMARY | 2024-10-27 11:28 | XMS_ITS | Encounter Summary ---
[place] [address] Care Team Providers Care Field Instructor Name Role Phone SanchoKurtis tello Primary Care Provider [phone] Reason for Visit * Reason Onset Date Comments Medical Care Coordination 04/24/2016 Encounter Details Date Type Department Care Team (Late st Contact Info) Description 04/24/2016 Telephone [place] [id number] Sherly Bateman, RN Medical Care Coordination Social History Tobacco Use Types Packs/Day Years [...] Telephone Encounter - Sherly Bateman RN - 04/24/2016 8:03 AM EDT RN Received order for local CBC w/diff from Norma Garrido NP, to be drawn in 3 months from 04/19/16.Request sent to clinical corporation secretary. RN received the following from clinical corporation secretary: Injection/Infusion Referral-[facility] ? Call placed [phone]. ?? Spoke w/ MARK. ?? Services to be provided for pt are: WEEK OF 06/26 FOR LAB DRAW ?? confirmed they would provide services to pt and would contact with appointment time. ?? Pt demographics, office note, med list and orders faxed to [phone]. Reminder note placed in eDH to track labs. documented in this encounter Plan of Treatment Upcoming Encounters Date Type Department Care Team (Late st Contact Info) Description 01/28/2025 3:30 PM EDT Office [place] [address] Raza Glasgow MD [facility] [place] [address] documented as of this encounter Visit Diagnoses Not on filedocumented in this encounter Care Teams Field Instructor Relationship Specialty Start Date End Date Kurtis Kingsley DO [address] [place] [address] PCP - General 09/27/10 03/22/22 documented as of this encounter
--- OUTSIDE RECORDS SUMMARY | 2024-10-27 11:28 | XMS_ITS | Encounter Summary ---
Author Organization [facility] [place] [address] Care Team Providers Care Tool And Die Maker Name Role Phone Kurtis Kingsley DO Primary Care Provider Reason for Visit * Reason Comments Advice Only * Consultation (Routine) - Closed Specialty Diagnoses / Procedures Referred By Contac t Referred To Contact Hematology and Oncology Diagnoses thrombocytopenia f/h of ITP Kurtis Kingsley DO [address] [place] [address] [facility] [address] [place] [address] Referral ID Status Reason Start Date Expiration Date V isits Requested Visits Authorized [id number] Closed Consult, Test & Treat Connection [facility] 10/21/2015 10/20/2016 1 1 Encounter Details Date Type Department Care Team (Late st Contact Info) Description 11/03/2015 3:00 PM EST Office Visit Hematology [place] [address] Ivan Brooke MD [facility] [place] [address] Norma Garrido APRN [facility] [place] [address] Thrombocytopenia Social History Tobacco Use Types Packs/Day [...] 36.4 ??C (97.5 ??F) 11/03/2015 3:00 PM ES T Respiratory Rate 18 11/03/2015 3:00 PM EST Oxygen Saturation 99% 11/03/2015 3:00 PM EST Inhaled Oxygen Concentration - - Weight 95.3 kg (210 lb) 11/03/2015 3:00 PM EST Height 176 cm (5' 9.29) 11/03/2015 3:00 PM EST Body Mass Index 30.75 11/03/2015 3:00 PM EST documented in this encounter Progress Notes * Ivan Brooke MD - 11/03/2015 3:42 PM EST Hematology/BMT Staff Addendum to consultation: We are seeing Prasanna at the request of Dr Kurtis Kingsley for isoalted thrombocytopenia I have seen and evaluated the patient, reviewed all pertinent clinical, laboratory and radiographicdata and discussed the case in depth on rounds with Dr Chavis today. I agree with the findings, assessment and plan as outlined in today's note, with any changes or add'l comments included below. The pt never recalls having a CBC and was never told he had a low platelet count. He dose note thathis platelet count was 2K at and his mom's platelet count was normal. He rec'd Vit K and had excessive bleeding requiring tx to [place]. Similar situation with his sister, but not his brother. (S UBSEQUENTLY, HIS MOTHER WAS SHOWN TO BE POLLO-1 NEG - C/W ALLOIMMUNE THROMBOCYTOPENIA). He visited local ER for spontaneaous thigh hematoma 6 weeks ago. At that time, it was noted that his platelet count was 80K. MRI of knee showed no hematoma. He was sent here for further evaluation. Prasanna has experienced past surgeries w/o bleeding Recent spine surgery w/i past 6 mths Assessment Prasanna likely has two things going on - inclduing alloimmune thrombocytopenia at judy time of his . Currently, his thrombocytopenia is likely unrealted and due to another cause. Differential diagnosis is broad and included Meds (OTC meds, ETOH), infection (Hep B, C, EBV, CMV, HIV, parvo, ), primary marrow disorder, rheum ds, nutritional def (B12, MMA, folate), abn coag (DIC.PT/PTT), smear review to r/o clumping. We will perform a limited w/u using blood tests and see the pt back in 2 weeks. If all tests are neg, he may need a marrow assessment to r/o NHL I reviewed all of the above with the pt in detail. Quirino Brooke MD Staff * Partha Eisenberg - 11/03/2015 3:00 PM EST Images from the original note were not included. Attending Physician: Referring physician: Kurtis Durbin Reason for referral: Thrombocytopenia HPI: 45 y/o male presenting for evaluation of thrombocytopenia. He reports that his Plt count was 2k at . He had extensive bleeding after vit K inj site for which he was transferred to [facility] where he received plt transfusion. His youngersister also had thrombocytopenia at requiring plt transfusion. His older brother didn't have any issues. His mother carried a medical alert bracelet [...] over the past couple of months. 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 - Smoking: never - Alcohol: rarely - He lives in [place], [place] with his and 3 kids. Family History: - Mother: was tested negative for PLT antigen 1; never had low plt count; - Father: htn, dlp -Siblings: brother and sister: both healthy; His sister also had low plt count at and was transfused; no issues now. Brother is a soft crab shedder at [employer]. No FH of ITP or other hematological [...] dimer are normal. So, DIC is unlikely. We do not have suspicion for TTP as his Hgb is normal and he does not look sick. We will get some labs today to further evaluate for the etiology. We will also check for H.pylori as it is shown to be associated with ITP. - LABS today: CBC, Retic count, Peripheral smear, CMP, HIV, hep panel, EBV, CMV, adeno PCR, MO, RF, B12, folate, MMA, stool H pylori. - Will get his prior CBC records from Dr.Joseph Hall's office. - We will see him back in 2-3 weeks to review the results or sooner if needed. We reviewed our impression and plans with Prasanna and all his Qs were answered. Pt was seen and discussed with . Partha Eisenberg MD. Fellow, Hematology/Oncology Pager: [phone] documented in this encounter Miscellaneous Notes * Addendum Note - Ivan Brooke MD - 11/04/2015 12:33 PM ESTAddended by: IVAN BROOKE on: 11/04/2015 12:33 PM Modules accepted: Level of Service documented in this encounter Plan of Treatment Upcoming Encounters Date Type Department Care Team (Late st Contact Info) Description 01/28/2025 3:30 PM EDT Office Visit [place] [address] Raza [place] MD [facility] [place] [address] documented as of this encounter Procedures Procedure Name Priority Date/Time Associated Diagnosis Comments PATHOLOGY SLIDE REVIEW Routine 5 5:30 PM EST PATHOLOGY SLIDE REVIEW Routine 5 4:35 PM EST Thrombocytopenia ADENOVIRUS PCR, QUANTITATIVE Routine 11/03/2015 4:35 PM EST Thrombocytopenia HEMOGRAM Routine 11/03/2015 4:35 PM EST Thrombocytopenia DIFFERENTIAL, AUTOMATED Routine 11/03/2015 4:35 PM EST Thrombocytopenia EBV PCR QUANTITATIVE (MARCH) Routine 11/03/2015 4:35 PM EST Thrombocytopenia METHYLMALONIC ACID, SERUM Routine 11/03/2015 4:35 PM EST Thrombocytopenia HEPATITIS B CORE ANTIBODY, TOTAL Routine 11/03/2015 4:35 PM EST Thrombocytopenia CMV PCR, QUANTITATIVE Routine 11/03/2015 4:35 PM EST Thrombocytopenia HIV SCREEN, 4TH GENERATION ([facility]/CGP/APD/NLH) Routine 11/03/2015 4:35 PM EST Thrombocytopenia HEPATITIS B SURFACE ANTIGEN Routine 11/03/2015 4:35 PM EST Thrombocytopenia RETICULOCYTE COUNT Routine 11/03/2015 4: 35 PM EST Thrombocytopenia CBC (WITH DIFF) Routine 11/03/2015 4:35 PM EST Thrombocytopenia RHEUMATOID FACTOR, QUANT Routine 11/03/2015 4:35 PM EST Thrombocytopenia MO ANTIBODY SCREEN Routine 11/03/2015 4 :35 PM EST Thrombocytopenia FOLATE, SERUM Routine 11/03/2015 4:35 PM EST Thrombocytopenia VITAMIN B12 Routine 11/03/2015 4:35 PM EST Thrombocytopenia COMPREHENSIVE METABOLIC PANEL Routine 11/03/2015 4:35 PM EST Thrombocytopenia documented in this encounter Results * Smear Review Report (11/03/2015 5:30 PM EST) Smear Review Report [id number] ?Location: The signing pathologist has (i) examined the relevant preparation(s) for the specimen(s) and (ii) rendered or confirmed the diagnosis(es). . ? Smear Review DIAGNOSIS Thrombocytopeni a. see discussion 11/04/15 SRINIVAS 11/04/15 Verified by: ? Eva CLAYTON, Maldonado ?Hematopatholo gist ?(Electronic Signature) The attending pathologist whose signature appears on this report has reviewed all diagnostic slides and has edited the gross and/or microscopic portion of the report in rendering the final pathologic diagnosis. DISCUSSION WBC 4.45K/ul; RBC 5.78l596/ul; Hgb 15.8; MCV 83; RDW 12.6; PLT 94K/ul There is no anemia. ??The red blood cells show generally normal morphology. ?? The white blood cells show some reactive lymphocytes, but otherwise show normal morphology. Platelets are decreased and show normal platelet morphology. Thrombocytopeni a can be secondary to medications, inflammatory/in fectious conditions, nutritional deficiencies, ITP. There is no diagnostic morphologic pathology in this smear to explain thrombocytopeni a. ADDITIONAL STUDIES Not performed CLINICAL INFORMATION thrombocytopeni a CERNER MILLENNIUM 11/03/2015 5:30 PM EST Ivan Brooke MD HEMATOLOGY ORDERABLE S CERNER MILLENNIUM * Differential, Automated (11/03/2015 4:35 PM EST) Neutrophil % 57.0 % CERNER MILLENNIUM Neutrophil Absolute 2.53 1.50 - 6.30 x10(3)/mcL CERNER MILLENNIUM Lymph % 32.1 % CERNER MILLENNIUM Lymphocytes Abs 1.4 1.0 - 3.6 x10(3)/mcL CERNER MILLENNIUM Monocyte % 8.5 % CERNER MILLENNIUM Monocyte Abs 0.4 0.2 - 1.0 x10(3)/mcL CERNER MILLENNIUM Eos % 1.8 % CERNER MILLENNIUM Eosinophils Abs 0.1 0.0 - 0.5 x10(3)/mcL CERNER MILLENNIUM Basophil % 0.4 % CERNER MILLENNIUM Baso Absolute 0.0 0.0 - 0.2 x10(3)/mcL CERNER MILLENNIUM Immature Gran % 0.20 % CERN ER MILLENNIUM Comment: Immature granulocytes(IG's)percentage and absolute count will include metamyelocytes, myelocytes, and promyelocytes. Blood smears from CBCs yielding IG's will be scanned manually for concordance. If this scan disagrees with the automated IG or if promyelocytes are noted, a manual differential will be performed. Immature Gran Absolute 0.01 0.00 - 0.05 x10(3)/mcL CERNER MILLENNIUM Blood specimen (specimen) 11/03/2015 4:35 PM EST 11/03/2015 4:49 PM EST Narrative Resulting Agency Comment Spec In Lab Ivan Brooke MD HEMATOLOGY ORDERABLE S CERVERONICA BRITOENNIUM * (ABNORMAL) Hemogram (11/03/2015 4:35 PM EST) White Blood Cell 4.4 4.0 - 10.0 x10(3)/mcL CERNER MILLENNIUM Red Blood Cell 5.31 4.63 - 6.08 x10(6)/mcL CERNER MILLENNIUM Hemoglobin 15.8 13.7 - 17.5 gm/dL CERNER MILLENNIUM Hematocrit 44.2 40.0 - 51.0 % CERNER MILLENNIUM Mean Cell Volume 83.2 79.0 - 92.0 fL CERNER MILLENNIUM Mean Cell Hemoglobin 29.8 25.6 - 32.2 pg CERNER MILLENNIUM Mean Cell Hemoglobin Concentration 35.7 32.0 - 36.5 gm/dL CERNER MILLENNIUM Platelet 94(L) 145 - 370 x10(3)/mcL CERNER MILLENNIUM RDW Standard Deviation 37.6 35.0 - 46.0 fL CERNER MILLENNIUM RDW coefficient of variation 12.6 10.9 - 14.4 % CERNER MILLENNIUM Mean Platelet Volume 11.6 9.0 - 12.0 fL CERNER MILLENNIUM Blood specimen (specimen) 11/03/2015 4:35 PM EST 11/03/2015 4:49 PM EST Narrative Resulting Agency Comment Spec In Lab Ivan Brooke MD HEMATOLOGY ORDERABLE S CERVERONICA MILLENNIUM * Peripheral Smear Review (11/03/2015 4:35 PM EST) Peripheral Smear Review See Comment GIO MOREL Comment: When completed by the Pathologist, report [id number] will display under Hematopathology Reports. Blood specimen (specimen) 11/03/2015 4:35 PM EST 11/03/2015 4:49 PM EST Narrative Resulting Agency Comment Spec In Lab Ivan Brooke MD HEMATOLOGY ORDERABLE S Performing Organization Address [facility] de Phone Number GIO MOREL * (ABNORMAL) Reticulocyte Count (11/03/2015 4:35 PM EST) Reticulocyte % 2.7(H) 0.5 - 2.4 % CERNER MILLENNIUM Retic Abs # 0.140(H) 0.027 - 0.095 x10(6)/mc L CERNER MILLENNIUM Immature Retic% 4.1 2.3 - 15.9 % CERNER MILLENNIUM Reticulated Hgb 34.6 28.5 - 38.9 pg CERNER MILLENNIUM Immature Plt % 3.0 0.0 - 7.4 % CERNER ALISHAENNIUM Blood specimen (specimen) 11/03/2015 4:35 PM EST 11/03/2015 4:49 PM EST Narrative Resulting Agency Comment Spec In Lab Ivan Brooke MD HEMATOLOGY ORDERABLE S Performing Organization Address [facility] de Phone Number GIO MOREL * Adenovirus PCR, Quantitative (11/03/2015 4:35 PM EST) Adenovirus Pcr, Quantitative (MAY) Test ? Result ?Flag ??Unit ? RefValue ------ Adenovirus DNA, Quant Real-Time PCR ??Source ? BLOOD ??Adenovirus DNA, ?NO DNA DETECTED ? copies/mL ?QN PCR REFERENCE RANGE: <500 copies/mL This test was developed and its performance characteristics have been determined by [facility]. It has not been cleared or approved by the U.S. Food and Drug Administration. The FDA has determined that such clearance or approval is not necessary. Performance characteristics refer to the analytical performance of the test. Test Performed by: [facility], [employer]. [address] [place] [address] [facility]sect [facility] Fuentes Review 11/03/2015 4:35 PM EST 11/04/2015 2:57 PM EST Comment:Specimen Type:->BLOO D Narrative Resulting Agency Comment Spec In Lab Ivan Brooke MD CHEMISTRY ORDERABLES Performing Organization Address [facility] de Phone Number [facility] * EBV PCR Quantitative (11/03/2015 4:35 PM EST) EBV PCR,Quantitative NONE DETECTED. ?Lower limit of detection is 500 copies/mL. [facility] Comment: This test was developed and its performance characteristics determined by [facility]. It has not been cleared or approved by the FDA. The laboratory is regulated under CLIA as qualified to perform high-complexity testing. This test is used for clinical purposes. It should not be regarded as investigational or for research. Blood specimen (specimen) 11/03/2015 4:35 PM EST 11/03/2015 5:05 PM EST Narrative Resulting Agency Comment Spec In Lab Ivan Brooke MD LAB SEND OUT ORDERAB LES Performing Organization Address [facility] de Phone Number [facility] * CMV PCR, Quantitative (11/03/2015 4:35 PM EST) CMV Quant (Numeric) <137 IU/mL [facility] CMV Quant (Interp) Result: Not Detected Sample: plasma Method: This quantitative real-time PCR assay was performed in the [facility] Molecular Pathology [facility] using ??FAVIAN?? AmpliPrep/FAVIAN? ? TaqMan?? CMV Test ([employer] Linear Range: 137 IU/mL - 9,100,000 IU/mL (2.14 log ? 6.96 log IU/mL) Limit of Detection: 91 IU/mL (1.96 log IU/mL) GIO MOREL Blood specimen (specimen) 11/03/2015 4:35 PM EST 11/04/2015 11:55 AM EST Narrative Resulting Agency Comment Spec In Lab Ivan Brooke MD MOLECULAR ORDERABLES Performing Organization Address [facility] de Phone Number GIO MOREL * MO (11/03/2015 4:35 PM EST) MO Neg Neg GIO MOREL Blood specimen (specimen) 11/03/2015 4:35 PM EST 11/04/2015 7:50 AM EST Narrative Resulting Agency Comment Spec In Lab Ivan Brooke MD LAB SEND OUT ORDERAB LES Performing Organization Address [facility] de Phone Number GIO MOREL * Rheumatoid factor, quant (11/03/2015 4:35 PM EST) Rheumatoid Factor <10 <=14 IU/mL GIO MOREL Blood specimen (specimen) 11/03/2015 4:35 PM EST 11/03/2015 4:49 PM EST Narrative Resulting Agency Comment Spec In Lab Ivan Brooke MD CHEMISTRY ORDERABLES Performing Organization Address [facility] de Phone Number GIO MOREL * Methylmalonic acid, serum (11/03/2015 4:35 PM EST) Methylmalonic Acid (MAY) 0.18 <=0.40 nmol/mL [facility] Comment: Test Performed by: [address] [address] Vendor Manager: Jay Acosta II, M.D., Ph.D. Blood specimen (specimen) 11/03/2015 4:35 PM EST 11/04/2015 8:26 AM EST Narrative Resulting Agency Comment Spec In Lab Ivan Brooke MD LAB SEND OUT ORDERAB LES Performing Organization Address [facility] Co de Phone Number CERVERONICA BRITOENNIUM * Folate, serum (11/03/2015 4:35 PM EST) Folate 10.0 4.6 - 34.8 ng/mL CERNER MILLENNIUM Blood specimen (specimen) 11/03/2015 4:35 PM EST 11/03/2015 4:49 PM EST Narrative Resulting Agency Comment Spec In Lab Ivan Brooke MD CHEMISTRY ORDERABLES Performing Organization Address [facility] Phone Number CERVERONICA GIBSONIUM * Vitamin B12 (11/03/2015 4:35 PM EST) Vitamin B12 506 207 - 974 pg/mL CERNER MILLENNIUM Blood specimen (specimen) 11/03/2015 4:35 PM EST 11/03/2015 4:49 PM EST Narrative Resulting Agency Comment Spec In Lab Ivan Brooke MD CHEMISTRY ORDERABLES Performing Organization Address [facility] Phone Number CERVERONICA RBITOENNIUM * Hepatitis B Core Antibody, Total (11/03/2015 4:35 PM EST) Hepatitis B Core Antibody Negative Negative CERNER ALISHAENNIUM Blood specimen (specimen) 11/03/2015 4:35 PM EST 11/03/2015 4:49 PM EST Narrative Resulting Agency Comment Spec In Lab Ivan Brooke MD CHEMISTRY ORDERABLES Performing Organization Address [facility] Co de Phone Number CERVERONICA BRITOENNIUM * Hepatitis B Surface Antigen (11/03/2015 4:35 PM EST) Pathologist [facility] Hepatitis B Surface Antigen Negative Negative [facility] Blood specimen (specimen) 11/03/2015 4:35 PM EST 11/03/2015 4:49 PM EST Narrative Resulting Agency Comment Spec In Lab Ivan Brooke MD CHEMISTRY ORDERABLES Performing Organization Address [facility] de Phone Number [facility] * HIV Screen, 4th Generation (11/03/2015 4:35 PM EST) Pathologist [facility] HIV Ab/Ag Screen Negative Negative [facility] Comment: This 4th Generation HIV test [...] Narrative Resulting Agency Comment Spec In Lab Ivan Brooke MD CHEMISTRY ORDERABLES Performing Organization Address [facility] de Phone Number [facility] * (ABNORMAL) Comprehensive metabolic panel (non-fasting) (11/03/2015 4:35 PM EST) [facility] Glucose 101 65 - 199 mg/dL [facility] Comment:Diabetes: >=200 mg/d L plus symptoms Blood Urea Nitrogen 19 10 - 20 mg/dL [facility] Creatinine 1.26 0.80 - 1.50 mg/dL [facility] Comment: Please note that the pediatric reference intervals supplied above were not validated at [facility]. Results from pediatric patients should be interpreted in conjunction to the patient's age, height and muscle mass. Sodium 140 135 - 145 mmol/L [facility] Potassium 3.7 3.5 - 5.0 mmol/L [facility] Comment: Please note: ??Patients with WBC >100,000 may have falsely elevated Potassium levels. ??For accurate Potassium quantification in these patients send serum separator tube (gold top) for subsequent determinations. ??Contact the Clinical Chemistry Laboratory if there are any questions. Chloride 102 98 - 107 mmol/L CERNER MILLENNIUM Carbon Dioxide 22 22 - 31 mmol/L CERNER MILLENNIUM Anion Gap 16(H) 5 - 15 mmol/L CERNER MILLENNIUM Calcium 9.1 8.5 - 10.5 mg/dL CERNER MILLENNIUM Protein, Total 7.3 6.1 - 8.0 gm/dL CERNER MILLENNIUM Albumin 4.6 3.2 - 5.2 gm/dL CERNER MILLENNIUM Aspartate Aminotransferase 24 0 - 39 unit/L CERNER MILLENNIUM Alanine Aminotransferase 40 0 - 55 unit/L CERNER MILLENNIUM Alkaline Phosphatase 68 40 - 120 unit/L CERNER MILLENNIUM Bilirubin, Total 0.4 0.2 - 1.3 mg/dL CERNER MILLENNIUM Bilirubin, Direct 0.1 0.0 - 0.3 mg/dL CERNER MILLENNIUM Est Glomerular Filtration Rate >60 >=60 CERNER MILLENNIUM Comment: This estimated GFR (eGFR) value was [...] the following links into your internet browser. [email or web address] Blood specimen (specimen) 11/03/2015 4:35 PM EST 11/03/2015 4:49 PM EST Narrative Resulting Agency Comment Spec In Lab Ivan Brooke MD CHEMISTRY ORDERABLES CERNER MILLENNIUM documented in this encounter Visit Diagnoses Diagnosis Thrombocytopenia Thrombocytopenia, unspecified documented in this encounter Care Teams Tool And Die Maker Relationship Specialty Start Date End Date Kurtis Kingsley DO [address] [place] [address] PCP - General 09/27/10 03/22/22 documented as of this encounter
--- OUTSIDE RECORDS SUMMARY | 2024-10-27 11:28 | XMS_ITS | Encounter Summary ---
[place] [address] Care Team Providers Care Planer Tailer Name Role Phone Kurtis Kingsley DO Primary Care Provider [phone] Reason for Visit * Reason Onset Date Comments Results 12/07/2015 Lab results 12-02 Encounter Details Date Type Department Care Team (Late st Contact Info) Description 12/07/2015 Telephone Hematology [place] [address] Sherly Bateman, RN Results (Lab results 12-02-15) Social History Tobacco Use Types Packs/Day Years [...] Miscellaneous Notes * Telephone Encounter - Sherly Bateman, RN - 12/07/2015 10:35 AM EST Received lab results 12-02-15 via fax from [facility]. Input results into eD and forwarded to Dr Rebolledo and Dr Eisenberg. PLT=92. Reviewed lab results 12-02-[address] Eisenberg. No new orders. RTC 12-15-15. Spoke to pt to discuss results 12-15-15. Aware PLT=92 and no further lab work is needed until RTC 12-15-15. Confirmed appointment times for 2-10-16. Pt aware to contact clinic office with further questions or concerns. RN will continue to track labs and monitor status. documented in this encounter Plan of Treatment Upcoming Encounters Date Type Department Care Team (Late st Contact Info) Description 01/28/2025 3:30 PM EDT Office [place] [address] Raza [place] MD [facility] [address] [place] [address] documented as of this encounter Visit Diagnoses Not on filedocumented in this encounter Care Teams Planer Tailer Relationship Specialty Start Date End Date Kurtis Kingsley DO [address] [place] [address] PCP - General 09/27/10 03/22/22 documented as of this encounter
--- OUTSIDE RECORDS SUMMARY | 2024-10-27 11:28 | XMS_ITS | Encounter Summary ---
Author Organization [facility] [place] [address] Care Team Providers Care Mapper Name Role Phone Sacnho Kurtis PIERRE Primary Care Provider [phone] Reason for Visit * Reason Comments Finger Injury left pinky Encounter Details Date Type Department Care Team (Late st Contact Info) Description 10/23/2011 2:05 PM EST Office Visit [place] [address] Vicente Knowles MD [facility] [place] [address] Mass of hand (Primary Dx) Discharge Disposition: Home Social History Tobacco Use [...] kg (197 lb 3.2 oz) 10/23/2011 2:27 P M EST Height 180.3 cm (5' 11) 10/23/2011 2:27 PM EST Body Mass Index 27.5 10/23/2011 2:27 PM EST documented in this encounter Patient Instructions * Patient Instructions* Anaya Smith RN - 10/23/2011 2:50 PM EST Welcome to HeyAnita, your secure online access to your electronic medical record at [facility]. Using HeyAnita you will be able to send messages to your providers, view your test results, renew prescriptions, schedule appointments, and much more. Follow these instructions to enter your personal HeyAnita account for the first time: 1. Start your internet browser. Go to [email or web address] and click on the HeyAnita link. 2. Click SIGN UP NOW to go to the NEW MEMBER SIGN UP page. 3. Enter your HeyAnita Access Code exactly as it appears below. (You will not need this access code after you have completed the sign-up process.) ?? Your HeyAnita Access Code: [email or web address] ?? Expires: 12/07/11 02:49 PM ?? IMPORTANT: This Access Code will on the above mentioned date. If you do not sign up before this date, you will need to request a new Access Code number. 4. Enter your Date of (mm/dd/yyyy) and zip code click SUBMIT to go to the next page. 5. Create a HeyAnita identification (ID). This will be your HeyAnita login ID and cannot be changed, so [...] know when new information is available in HeyAnita. 9. Click SIGN UP to complete the process. You can now view your electronic medical record. If you have any questions about HeyAnita or your Access Code, please call for [place], for [place] or for [place]. If you need technical support, please e-mail [email or web address]. Remember, myD-H is NOT for urgent needs! Always dial 911 for medical emergencies. Follow up with Dr. Knowles as needed. Call for any increasing pain or discomfort. documented in this encounter Progress Notes * Vicente Knowles MD - 10/23/2011 3:34 PM EST PLASTIC SURGERY CONSULTATION Vicente Knowles M.D. KURTIS KINGSLEY, DO None CC: HPI: Prasanna Shipman is [...] Physical Activity 5 Days A Week. This WouldBe Walking Fast, Playing Tennis, Mowing The Lawn. Regular Exercise Is Also At Least 20 Minutes Of Vigorous Physical Activity 3 Days A Week. This Would Be Jogging, Swimming, Playing Basketball. Do YouGet Regular Exercise? Yes ??? Are You Or [...] a BB sized mass that is mobile medial/laterally. No TTP. It does not move with excursion of the finger and the finger does not trigger. Laboratory: Diagnostic Testing: Xray report in eDH reviewed from [facility], 09/19 w/o evidence of deformity or mass. [...] the lesion change he will return. We discussedthe process of excision. Recommendations: Observation. documented in this encounter Plan of Treatment Upcoming Encounters Date Type Department Care Team (Late st Contact Info) Description 01/28/2025 3:30 PM EDT Office Visit [place] [address] Raza Glasgow MD [facility] [place] [address] documented as of this encounter Visit Diagnoses Diagnosis Mass of hand- Primary Localized superficial swelling, mass, or lump documented in this encounter Care Teams Mapper Relationship Specialty Start Date End Date Kurtis Kingsley DO [address] [place] [address] [address] [facility] [address] [place] [address] PCP - General 09/27/10 03/22/22 documented as of this encounter
--- OUTSIDE RECORDS SUMMARY | 2024-10-27 11:28 | XMS_ITS | Encounter Summary ---
[place] [address] Care Team Providers Care Celluloid Trimmer Name Role Phone Kurtis Kingsley DO Primary Care Provider Encounter Details Date Type Department Care Team (Latest Contact Info) Description 12/15/2015 2:29 PM EST - 12/15/2015 11:59 PM EST Hospital Encounter [place]ematology [place] [address] ITP (idiopathic thrombocytopenic purpura); Thrombocytopenia Discharge Disposition: Home Social History Tobacco [...] 07/04/2023 FEXOFENADINE HCL (DAVID ORAL) 09/16/2009 03/14/2019 cycloSPORINE (RESTASIS) 0.05 % ophthalmic emulsion 09/16/2009 11/01/2016 documented as of this encounter Plan of Treatment Upcoming Encounters Date Type Department Care Team (Late st Contact Info) Description 01/28/2025 3:30 PM EDT Office [place] [address] Raza Glasgow MD [facility] [place] [address] documented as of this encounter Procedures Procedure Name Priority Date/Time Associated Diagnosis Comments HEMOGRAM Routine 12/15/2015 2:39 PM EST ITP (idiopathic thrombocytopenic purpura) DIFFERENTIAL, AUTOMATED Routine 12/15/2015 2:39 PM EST ITP (idiopathic thrombocytopenic purpura) CBC (WITH DIFF) Routine 12/15/2015 2:39 PM EST ITP (idiopathic thrombocytopenic purpura) documented in this encounter Results * Differential, Automated (12/15/2015 2:39 PM EST) Neutrophil % 48.5 % [facility] Neutrophil Absolute 2.40 1.50 - 6.30 x10(3)/mcL [facility] Lymph % 40.0 % [facility] Lymphocytes Abs 2.0 1.0 - 3.6 x10(3)/mcL [facility] Monocyte % 8.9 % [facility] Monocyte Abs 0.4 0.2 - 1.0 x10(3)/mcL [facility] Eos % 2.0 % [facility]EN[facility] Eosinophils Abs [...] 0.05 x10(3)/mcL [facility] M[facility]ENNI[facility] Blood specimen (specimen) 12/15/2015 2:39 PM EST 12/15/2015 2:49 PM EST Narrative Resulting Agency Comment Spec In Lab Maikel Rebolledo MD HEMATOLOGY ORDERABLE S CERVERONICA BRITOENNIUM * (ABNORMAL) Hemogram (12/15/2015 2:39 PM EST) White Blood Cell 5.0 4.0 - 10.0 x10(3)/mcL [facility] Red Blood Cell 5.57 4.63 - 6.08 x10(6)/mcL [facility] MILLENNI[facility] Hemoglobin 16.4 13.7 - 17.5 gm/dL [facility] Hematocrit 46.5 40.0 - 51.0 % [facility] M[facility] Mean Cell Volume 83.5 79.0 - 92.0 fL [facility] Mean Cell Hemoglobin 29.4 25.6 - 32.2 pg [facility] MILLENNI[facility] Mean Cell Hemoglobin Concentration 35.3 32.0 - 36.5 gm/dL [facility] MILLENNI[facility] Platelet 73(L) 145 - 370 x10(3)/mcL [facility] MILLENNI[facility] RDW Standard Deviation 38.8 35.0 - 46.0 fL [facility]EN[facility] RDW coefficient of variation 12.9 10.9 - 14.4 % [facility] MILLENNI[facility] Mean Platelet Volume 11.6 9.0 - 12.0 fL [facility] MILLENNI[facility] Blood specimen (specimen) 12/15/2015 2:39 PM EST 12/15/2015 2:49 PM EST Narrative Resulting Agency Comment Spec In Lab Maikel Rebolledo MD HEMATOLOGY ORDERABLE S GIO MOREL documented in this encounter Visit Diagnoses Diagnosis ITP (idiopathic thrombocytopenic purpura) Immune thrombocytopenic purpura Thrombocytopenia Thrombocytopenia, unspecified documented in this encounter Care Teams Celluloid Trimmer Relationship Specialty Start Date End Date Kurtis Kingsley DO [address] [place] [address] PCP - General 09/27/10 03/22/22 documented as of this encounter
--- OUTSIDE RECORDS SUMMARY | 2024-10-27 11:28 | XMS_ITS | Encounter Summary ---
[place] [address] Care Team Providers Care Registered Nurse Practitioner Name Role Phone Kurtis Kingsley DO Primary Care Provider Encounter Details Date Type Department Care Team (Late st Contact Info) Description 08/23/2012 7:31 AM EDT - 08/23/2012 11:59 PM EDT Hospital [place] [address] CLINIC, Kurtis Barrera DO [address] [place], [place] [id number] Discharge Disposition: Home Social History Tobacco Use [...] Start Date End Date gabapentin (NEURONTIN) 300 mg capsule Take 300 mg by mouth daily. 12/15/2015 pramipexole (MIRAPEX) 0.25 mg tablet Take 0.5 mg by mouth daily. 12/15/2015 FEXOFENADINE HCL (DAVID ORAL) 09/16/2009 03/14/2019 cycloSPORINE (RESTASIS) 0.05 % ophthalmic emulsion 09/16/2009 11/01/2016 documented as of this encounter Miscellaneous Notes * Miscellaneous - Provider, Scanning - 09/23/2012 11:16 AM EST documented in this encounter Plan of Treatment Upcoming Encounters Date Type Department Care Team (Late st Contact Info) Description 01/28/2025 3:30 PM EDT Office [place] [address] Raza Glasgow MD [facility] [place] [address] documented as of this encounter Procedures Procedure Name Priority Date/Time Associated Diagnosis Comments MRI LUMBAR SPINE WITHOUT CONTRAST Routine 08/23/2012 8:30 AM EDT documented in this encounter Results * MRI LUMBAR SPINE WITHOUT CONTRAST (08/23/2012 8:30 AM EDT) Anatomical Region Laterality Modality L-spine Magnetic Resonan ce 08/23/2012 8:30 AM EDT Narrative 08/23/2012 9:45 AM EDT Examination MR Lumbar Spine WO Clinical History PERSISTENT RIGHT SCIATICA Comparison None Technique Noncontrast MRI of the lumbar spine. Findings The alignment of the spine is normal. ??The conus is normal. ??The bone marrow signal intensity is normal. The conus is normal. ??The bone marrow signal intensity is normal. Visualized retroperitoneal structures are normal. T12-L1: ??There is no canal or foraminal stenosis. L1-L2: ??There is no canal or foraminal stenosis. L2-L3: ??There is no canal or foraminal stenosis. ??There is mild facet arthropathy. L3-L4: ??There is no canal or foraminal stenosis. ??There is mild facet arthropathy. L4-L5: ??There is moderate facet arthropathy. ??There are very tiny synovial cysts on the left but no canal or foraminal stenosis. L5-S1: ??There is moderate facet arthropathy, but no canal or foraminal stenosis. Impression Comparison facet degenerative changes lower lumbar spine. ??Overall, no significant canal or foraminal stenosis. Procedure Note Angelo Forrest MD - 08/23/2012 Examination MR Lumbar Spine WO Clinical History PERSISTENT RIGHT SCIATICA Comparison None Technique Noncontrast MRI of the lumbar spine. Findings The alignment of the spine is normal. The conus is normal. The bonemarrow signal intensity is normal. The conus is normal. The bone marrow signal intensity is normal. Visualized retroperitoneal structures are normal. T12-L1: There is no canal or foraminal stenosis. L1-L2: There is no canal or foraminal stenosis. L2-L3: There is no canal or foraminal stenosis. There is mild facet arthropathy. L3-L4: There is no canal or foraminal stenosis. There is mild facet arthropathy. L4-L5: There is moderate facet arthropathy. There are very tiny synovial cysts on the left but no canal or foraminal stenosis. L5-S1: There is moderate facet arthropathy, but no canal or foraminal stenosis. Impression Comparison facet degenerative changes lower lumbar spine. Overall, no significant canal or foraminal stenosis. Kurtis GARCIA MRI ORDERABLES documented in this encounter Visit Diagnoses Not on filedocumented in this encounter Care Teams Registered Nurse Practitioner Relationship Specialty Start Date End Date Kurtis Kingsley DO [address] [place] [address] PCP - General 09/27/10 03/22/22 documented as of this encounter
--- OUTSIDE RECORDS SUMMARY | 2024-10-27 11:28 | XMS_ITS | Encounter Summary ---
Author Organization [facility] [place] [address] Care Team Providers Care Operations Lieutenant Name Role Phone Sancho Kurtis PIERRE Primary Care Provider Reason for Visit * Reason Comments Follow-up Encounter Details Date Type Department Care Team (Late st Contact Info) Description 04/19/2016 4:30 PM EDT Office Visit Hematology [place] [address] Maikel Brooke MD [facility] DR HEMATOLOGY [place] [address] Norma Alejandra APRN [facility] DR HEMATOLOGY [place] [address] Thrombocytopenia Social History Tobacco Use Types Packs/Day [...] 36.4 ??C (97.5 ??F) 04/19/2016 4:21 PM ED T Respiratory Rate - - Oxygen Saturation 99% 04/19/2016 4:21 PM EDT Inhaled Oxygen Concentration - - Weight 93 kg (205 lb 0.4 oz) 04/19/2016 4:21 PM EDT Height 177 cm (5' 9.69) 04/19/2016 4:21 PM EDT Body Mass Index 29.68 04/19/2016 4:21 PM EDT documented in this encounter Progress Notes * Maikel Brooke MD - 04/19/2016 4:44 PM [...] Brooke MD Blood and Marrow Transplant Service * Norma Alejandra APRN - 04/19/2016 4:24 PM [...] local opthalmologist and had Lasik surgery in [place] in July 20. He has not had any notable side effects from the surgery except dry eyes. - No easy bleeding or bruising; no fevers of night sweats or weight loss; - No change in the energy level compared to last visit. 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 -Rest of the ROS is negative. Review [...] to visit. 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 - Smoking: never - Alcohol: rarely - He lives in [place], [place] with his and 3 kids. Family History: - Mother: was tested negative for PLT antigen 1; never had low plt count; - Father: htn, dlp -Siblings: brother and sister: both healthy; His sister also had low plt count at and was transfused; no issues now. Brother is a fabrication machine operator at [employer]. No FH of ITP or other hematological [...] not experienced any bleeding / bruising / petechiae.No indication for therapy at this time. Will continue to follow. Will repeat CBC in 3 months, follow up in 6 months. Pt knows to call with any concerning symptoms. NORMA ALEJANDRA, THERAPEUTIC RIDING INSTRUCTOR Staff Addendum I have personally seen and [...] Service documented in this encounter Miscellaneous Notes * Addendum Note - Maikel Brooke MD - 04/20/2016 10:56 AM EDTAddended by: MAIKEL BROOKE on: 04/20/2016 10:56 AM Modules accepted: Level of Service documented in this encounter Plan of Treatment Upcoming Encounters Date Type Department Care Team (Late st Contact Info) Description 01/28/2025 3:30 PM EDT Office [place] [address] Raza Glasgow MD [facility] [place] [address] documented as of this encounter Visit Diagnoses Diagnosis Thrombocytopenia Thrombocytopenia, unspecified documented in this encounter Care Teams Operations Lieutenant Relationship Specialty Start Date End Date Kurtis Kingsley DO [address] [place] [address] PCP - General 09/27/10 03/22/22 documented as of this encounter
--- OUTSIDE RECORDS SUMMARY | 2024-10-27 11:28 | XMS_ITS | Encounter Summary ---
Author Organization [facility] [place] [address] Care Team Providers Care Motor Analyst Name Role Phone Kurtis Kingsley DO Primary Care Provider [phone] Encounter Details Date Type Department Care Team (Latest Contact Info) Description 11/01/2016 4:00 PM EST Office Visit [place] [address] Norma Garrido APRN [facility] [place] [address] Amor Mena MD Idiopathic thrombocytopenic purpura Social History Tobacco [...] 36.5 ??C (97.7 ??F) 11/01/2016 3:29 PM ES T Respiratory Rate 18 11/01/2016 3:29 PM EST Oxygen Saturation 99% 11/01/2016 3:29 PM EST Inhaled Oxygen Concentration - - Weight 94.4 kg (208 lb 3.2 oz) 11/01/2016 3:29 P M EST Height 178 cm (5' 10.08) 11/01/2016 3:29 PM EST Body Mass Index 29.81 11/01/2016 3:29 PM EST documented in this encounter Progress Notes * Amor Mena MD - 11/01/2016 4:00 PM [...] shoulder pain which started just a few days ago. He denies bleeding, bruising, or petechiae. He does complain of chronic heartburn symptoms.He otherwise denies CP, SOB, cough, fever/chills, n/v/d/c, [...] to visit. 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 - Smoking: never - Alcohol: rarely - He lives in [place], [place] with his and 3 kids. Family History: - Mother: was tested negative for PLT antigen 1; never had low plt count; - Father: htn, dlp - Siblings: brother and sister: both healthy; His sister also had low plt count at and was transfused; no issues now. Brother is a cardiac/vascular sonographer at [place]. 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 Physical Exam: BP 140/80 (Patient Position: Sitting) Pulse 78 Temp 36.5 ??C (97.7 ??F) (Temporal) Resp 18 Ht 178 cm (5' 10.08) Wt 94.4 kg (208 lb 3.2 [...] 3:30 PM EDT Office [place] [address] Raza Glasgow MD [facility] [place] [address] documented as of this encounter Visit Diagnoses Diagnosis Idiopathic thrombocytopenic purpura Immune thrombocytopenic purpura documented in this encounter Care Teams Motor Analyst Relationship Specialty Start Date End Date Kurtis Kingsley DO [address] [place] [address] PCP - General 09/27/10 03/22/22 documented as of this encounter
--- OUTSIDE RECORDS SUMMARY | 2024-10-27 11:28 | XMS_ITS | Encounter Summary ---
[place] [address] Care Team Providers Care Entry Writer Name Role Phone Sancho Kurtis PIERRE Primary Care Provider [phone] Encounter Details Date Type Department Care Team (Latest Contact Info) Description 04/19/2016 3:09 PM EDT - 04/19/2016 11:59 PM EDT Hospital Encounter [place]ematology [place] [address] ITP (idiopathic thrombocytopenic purpura) Discharge Disposition: Home Social History Tobacco Use [...] 3:30 PM EDT Office [place] [address] Raza Glasgow MD [facility] [place] [address] documented as of this encounter Procedures Procedure Name Priority Date/Time Associated Diagnosis Comments HEMOGRAM Routine 04/19/2016 3:18 PM EDT ITP (idiopathic thrombocytopenic purpura) DIFFERENTIAL, AUTOMATED Routine 04/19/2016 3:18 PM EDT ITP (idiopathic thrombocytopenic purpura) CBC (WITH DIFF) Routine 04/19/2016 3:18 PM EDT ITP (idiopathic thrombocytopenic purpura) COMPREHENSIVE METABOLIC PANEL Routine 04/19/2016 3:18 PM EDT ITP (idiopathic thrombocytopenic purpura) documented in this encounter Results * Differential, Automated (04/19/2016 3:18 PM EDT) Neutrophil % 48.0 % [facility] Neutrophil Absolute 2.66 1.50 - 6.30 x10(3)/[facility] Lymph % 42.3 % [facility] Lymphocytes Abs 2.3 1.0 - 3.6 x10(3)/[facility] Monocyte % 6.9 % [facility] Monocyte Abs 0.4 0.2 - 1.0 x10(3)/[facility] Eos % 2.0 % [facility] Eosinophils Abs 0.1 0.0 - 0.5 x10(3)/[facility] Basophil % 0.4 % [facility] Baso Absolute 0.0 0.0 - 0.2 x10(3)/[facility] Immature Gran % 0.40 % [facility] Comment: Immature granulocytes(IG's)percentage and absolute count will include metamyelocytes, myelocytes, and promyelocytes. Blood smears from CBCs yielding IG's will be scanned manually for concordance. If this scan disagrees with the automated IG or if promyelocytes are noted, a manual differential will be performed. Immature Gran Absolute 0.02 0.00 - 0.05 x10(3)/[facility] Blood specimen (specimen) 04/19/2016 3:18 PM EDT 04/19/2016 3:27 PM EDT Narrative Resulting Agency Comment Spec In Lab Maikel Rebolledo MD HEMATOLOGY ORDERABLE S [facility] [place] [address] * (ABNORMAL) Hemogram (04/19/2016 3:18 PM EDT) White Blood Cell 5.5 4.0 - 10.0 x10(3)/[facility] Red Blood Cell 5.65 4.63 - 6.08 x10(6)/[facility] Hemoglobin 16.6 13.7 - 17.5 gm/dL [facility] Hematocrit 47.0 40.0 - 51.0 % [facility] Mean Cell Volume 83.2 79.0 - 92.0 fL [facility] Mean Cell Hemoglobin 29.4 25.6 - 32.2 pg [facility] Mean Cell Hemoglobin Concentration 35.3 32.0 - 36.5 gm/dL [facility] Platelet 86(L) 145 - 370 x10(3)/[facility] RDW Standard Deviation 38.4 35.0 - 46.0 fL [facility] RDW coefficient of variation 12.9 10.9 - 14.4 % [facility] Mean Platelet Volume 11.5 9.0 - 12.0 fL [facility] Blood specimen (specimen) 04/19/2016 3:18 PM EDT 04/19/2016 3:27 PM EDT Narrative Resulting Agency Comment Spec In Lab Maikel Rebolledo MD HEMATOLOGY ORDERABLE S [facility] [place] [address] * (ABNORMAL) Comprehensive metabolic panel (non-fasting) (04/19/2016 3:18 PM EDT) Glucose 84 65 - 199 mg/dL [facility] Comment:Diabetes: >=200 mg/d L plus symptoms Blood Urea Nitrogen 20 10 - 20 mg/dL [facility] Creatinine 1.33 0.80 - 1.50 mg/dL [facility] Comment: Please note that the pediatric reference intervals supplied above were not validated at [facility]. Results from pediatric patients should be interpreted in conjunction to the patient's age, height and muscle mass. Sodium 140 135 - 145 mmol/L [facility] Potassium 4.0 3.5 - 5.0 mmol/L [facility] Comment: Please note: ??Patients with WBC >100,000 may have falsely elevated Potassium levels. ??For accurate Potassium quantification in these patients send serum separator tube (gold top) for subsequent determinations. ??Contact the Clinical Chemistry Laboratory if there are any questions. Chloride 101 98 - 107 mmol/L [facility] Carbon Dioxide 23 22 - 31 mmol/L [facility] Anion Gap 16(H) 5 - 15 mmol/L [facility] Calcium 9.3 8.5 - 10.5 mg/dL [facility] Protein, Total 7.4 6.1 - 8.0 gm/dL [facility] Albumin 4.9 3.2 - 5.2 gm/dL [facility] Aspartate Aminotransferase 19 0 - 39 unit/L [facility] Alanine Aminotransferase 37 0 - 55 unit/L [facility] Alkaline Phosphatase 73 40 - 120 unit/L [facility] Bilirubin, Total 0.4 0.2 - 1.3 mg/dL [facility] Bilirubin, Direct 0.1 0.0 - 0.3 mg/dL [facility] Est Glomerular Filtration Rate 59(L) >=60 [facility] Comment: This estimated GFR (eGFR) [...] the following links into your internet browser. [email or web address] Blood specimen (specimen) 04/19/2016 3:18 PM EDT 04/19/2016 3:27 PM EDT Narrative Resulting Agency Comment Spec In Lab Maikel Rebolledo MD CHEMISTRY ORDERABLES [facility] [place] [address] documented in this encounter Visit Diagnoses Diagnosis ITP (idiopathic thrombocytopenic purpura) Immune thrombocytopenic purpura documented in this encounter Care Teams Entry Writer Relationship Specialty Start Date End Date Kurtis Kingsley DO [address] [place] [address] PCP - General 09/27/10 03/22/22 documented as of this encounter
--- OUTSIDE RECORDS SUMMARY | 2024-10-27 11:28 | XMS_ITS | Encounter Summary ---
Author Organization [facility] [place] [address] Care Team Providers Care Information Security Engineer Name Role Phone SanchoKurtis mcdaniel Primary Care Provider [phone] Encounter Details Date Type Department Care Team (Late st Contact Info) Description 12/04/2012 Interpretation Only Radiology [address] [place] [address] [place] [address] Unknown None Social History Tobacco Use Types [...] 3:30 PM EDT Office [place] [address] Raza Glasgow MD [facility] [place] [address] documented as of this encounter Procedures Procedure Name Priority Date/Time Associated Diagnosis Comments XR FLUORO NO RAD <1HR - RADIOLOGY USE Routine 12/04/2012 5:52 AM EST documented in this encounter Results * XR Fluoro <1Hr - Radiology Use (12/04/2012 5:52 AM EST) Anatomical Region Laterality Modality N/A Radiographic Melissa ging 12/04/2012 5:52 AM EST Narrative 12/04/2012 5:52 AM EST APD Historical Result Principal Stretcher Leveler Operator Helper: ??PIYUSH ?TAIWO INTRAOPERATIVE FLUOROSCOPY: A total of 5.6 seconds (396.36 mrad) of intraoperative fluoroscopy was used by Dr Hall. ?? There was no Radiologist present during the exam. Two spot images document the procedure. Piyush Britt MD [facility] [id number]* CC: Procedure Note Unknown - 05/05/2019 APD Historical Result Principal Stretcher Leveler Operator Helper: PIYUSH BRITT INTRAOPERATIVE FLUOROSCOPY: A total of 5.6 seconds (396.36 mrad) of intraoperative fluoroscopy wasused by Dr Hall. There was no Radiologist present during the exam. Two spot images documentthe procedure. Piyush Britt MD [facility] [id number]* CC: Unknown IMG FLUORO ORDERABLE S documented in this encounter Visit Diagnoses Not on filedocumented in this encounter Care Teams Information Security Engineer Relationship Specialty Start Date End Date Kurtis Kingsley DO [address] [place] [address] PCP - General 09/27/10 03/22/22 documented as of this encounter
--- OUTSIDE RECORDS SUMMARY | 2024-10-27 11:28 | XMS_ITS | Encounter Summary ---
Author Organization [facility] [place] [address] Care Team Providers Care Hair Boiler Name Role Phone Marian Pierre MD Primary Care Provider [phone] Encounter Details Date Type Department Care Team (Late st Contact Info) Description 06/09/2005 [place] [address] London Lewis MD [place], [place] Social History Tobacco Use Types Packs/Day Years Used Date Smoking Tobacco: Never Assessed [facility] Inpatient Questions Answer Date Recorded Does Anyone [...] 3:30 PM EDT Office [place] [address] Raza Glasgow MD [facility] [place] [address] documented as of this encounter Procedures Procedure Name Priority Date/Time Associated Diagnosis Comments SURGICAL PATHOLOGY REPORT Routine 06/09/2005 6:03 PM EDT documented in this encounter Results * Surgical Pathology Report (06/09/2005 6:03 PM EDT) Surgical Pathology Report [id number] ? Location: The signing pathologist has (i) examined the relevant preparation(s) for the specimen(s) and (ii) rendered or confirmed the diagnosis(es). . ?Pathology Surgical Pathology Final Report Clinical Information Specimen Submitted: A - (L) vas def., curetting B - (R) vas def., curetting Clinical History: Vasectomy Gross Description A - Labeled/Fixativ e: ??#1, formalin. Qty/Size/Weight : ? Single, 0.4 x 0.3 x 0.3 cm. Tissue Description: ?Firm, mar, cylindrical portion of tissue. Sections/Proces sing: ?? (R1) B - Labeled/Fixativ e: ??#2, formalin. Qty/Size/Weight : ? Single, 0.6 x 0.3 x 0.3 cm. Tissue Description: ?Firm, mar, cylindrical portion of tissue. Sections/Proces sing: ?? (R1) crh/SNS Microscopic Description Slides reviewed, microscopic description not recorded. Diagnosis A - Segment of left vas deferens. B - Segment of right vas deferens. CR-0 06/13/05 ARS 06/13/05 Verified by: ? Meño Cole MD ?Pathologist ?(Electronic Signature) The attending pathologist whose signature appears on this report has reviewed all diagnostic slides and has edited the gross and/or microscopic portion of the report in rendering the final pathologic diagnosis. GIO MOREL 06/09/2005 6:03 PM EDT London Lewis MD PATHOLOGY/CYTOLOGY O RDERABLES [facility] documented in this encounter Visit Diagnoses Not on filedocumented in this encounter Care Teams Hair Boiler Relationship Specialty Start Date End Date Marian Pierre MD [address] [place] [id number] PCP - General Family Medicine 08/15/22 documented as of this encounter
--- OUTSIDE RECORDS SUMMARY | 2024-10-27 11:28 | XMS_ITS | Encounter Summary ---
[facility] [place] [address] Care Team Providers Care Architectural Engineer Name Role Phone SanchoKurtis mcdaniel Primary Care Provider [phone] Reason for Visit * Reason Comments Follow-up Encounter Details Date Type Department Care Team (Latest Contact Info) Description 12/15/2015 4:00 PM EST Office Visit Hematology [place] [address] Maikel Rebolledo MD [facility] [place] [address] Norma Garrido APRN [facility] [place] [address] Dutch Bain MD [facility] DR HEMATOLOGY/[place] [address] ITP (idiopathic thrombocytopenic purpura) Social History Tobacco [...] 36.2 ??C (97.2 ??F) 12/15/2015 3:53 PM ES T Respiratory Rate 18 12/15/2015 3:53 PM EST Oxygen Saturation 100% 12/15/2015 3:53 PM EST Inhaled Oxygen Concentration - - Weight 90.5 kg (199 lb 8 oz) 12/15/2015 3:53 PM EST Height - - Body Mass Index 28.88 11/17/2015 11:32 AM EST documented in this encounter Progress Notes * Maikel Rebolledo MD - 12/15/2015 4:34 PM [...] need for close f/u and the seriousness of a low platelet count Quirino Rebolledo MD Staff * Dutch Bain - 12/15/2015 2:37 PM EST Images [...] to visit. 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 - Smoking: never - Alcohol: rarely - He lives in [place], [place] with his and 3 kids. Family History: - Mother: was tested negative for PLT antigen 1; never had low plt count; - Father: htn, dlp -Siblings: brother and sister: both healthy; His sister also had low plt count at and was transfused; no issues now. Brother is a roller varnisher at [employer]. No FH of ITP or other hematological [...] knows to call with any concerning symptoms. DUTCH BAIN MD documented in this encounter Plan of Treatment Upcoming Encounters Date Type Department Care Team (Late st Contact Info) Description 01/28/2025 3:30 PM EDT Office [place] [address] Raza Glasgow MD [facility] [place] [address] documented as of this encounter Results * Comprehensive metabolic panel (non-fasting) (01/19/2016 10:36 AM EDT) Glucose 99 65 - 199 mg/dL [facility] Comment:Diabetes: >=200 mg/d L plus symptoms Blood Urea Nitrogen 16 10 - 20 mg/dL [facility] Creatinine 1.21 0.80 - 1.50 mg/dL [facility] Comment: Please note that the pediatric reference intervals supplied above were not validated at [facility]. Results from pediatric patients should be interpreted in conjunction to the patient's age, height and muscle mass. Sodium 138 135 - 145 mmol/L [facility] Potassium 4.3 3.5 - 5.0 mmol/L [facility] Comment: Please note: ??Patients with WBC >100,000 may have falsely elevated Potassium levels. ??For accurate Potassium quantification in these patients send serum separator tube (gold top) for subsequent determinations. ??Contact the Clinical Chemistry Laboratory if there are any questions. Chloride 101 98 - 107 mmol/L [facility] Carbon Dioxide 26 22 - 31 mmol/L [facility] Anion Gap 11 5 - 15 mmol/L [facility] Calcium 9.6 8.5 - 10.5 mg/dL [facility] Protein, Total 7.6 6.1 - 8.0 gm/dL [facility] Albumin 4.9 3.2 - 5.2 gm/dL [facility] Aspartate Aminotransferase 23 0 - 39 unit/L [facility] Alanine Aminotransferase 45 0 - 55 unit/L [facility] Alkaline Phosphatase 76 40 - 120 unit/L [facility] Bilirubin, Total 0.4 0.2 - 1.3 mg/dL [facility] Bilirubin, Direct 0.1 0.0 - 0.3 mg/dL [facility] Est Glomerular Filtration Rate >60 >=60 [facility] Comment: This estimated GFR (eGFR) [...] the following links into your internet browser. http://LitRes/DHnkdep http://LitRes/DHMCnkf Blood specimen (specimen) 01/19/2016 10:36 AM EDT 01/19/2016 10:43 AM EDT Narrative Resulting Agency Comment Spec In Lab Maikel Rebolledo MD CHEMISTRY ORDERABLES Performing Organization Address City/State/[facility] Co de Phone Number [facility] [place] [address] documented in this encounter Visit Diagnoses Diagnosis ITP (idiopathic thrombocytopenic purpura) Immune thrombocytopenic purpura documented in this encounter Care Teams Architectural Engineer Relationship Specialty Start Date End Date Kurtis Kingsley DO [address] [place] [address] PCP - General 09/27/10 03/22/22 documented as of this encounter
--- OUTSIDE RECORDS SUMMARY | 2024-10-27 11:28 | XMS_ITS | Encounter Summary ---
[place] [address] Care Team Providers Care Stars Coordinator Name Role Phone Kurtis Kingsley DO Primary Care Provider Reason for Visit * Reason Onset Date Comments Medical Care Coordination 12/16/2015 labs a t PCP office Encounter Details Date Type Department Care Team (Late st Contact Info) Description 12/16/2015 Telephone Hematology [place] [phone] Belinda Pritchett RN Medical Care Coordination (labs at PCP office) Social History Tobacco Use Types Packs/Day Years [...] RENNY Cantrell at Dr Kingsley's office at [phone] stating patient needs to be set up for monthly labs drawn starting in January. Orders faxed to Dr Kingsley's office at [phone]. Clinic contact information provided, should there be further questions or concerns. Reminder placed for Nursing to track labs. RN will continue to follow. 12-17-15: RN received message from clinical school attendance secretary stating RENNY Cnatrell from [facility] to confirm that patient's PCP is Dr Kingsley, and they will set him up for monthly labs. Orders faxed to [phone] per Tamia's request. She can be reached at [phone] ext [phone] forfurther questions if necessary. documented in this encounter Plan of Treatment Upcoming Encounters Date Type Department Care Team (Late st Contact Info) Description 01/28/2025 3:30 PM EDT Office [place] [address] Raza Glasgow MD [facility] [place] [address] documented as of this encounter Visit Diagnoses Diagnosis ITP (idiopathic thrombocytopenic purpura) Immune thrombocytopenic purpura documented in this encounter Care Teams Stars Coordinator Relationship Specialty Start Date End Date Kurtis Kingsley DO [address] [place] [address] PCP - General 09/27/10 03/22/22 documented as of this encounter
--- OUTSIDE RECORDS SUMMARY | 2024-10-27 11:28 | XMS_ITS | Encounter Summary ---
[place] [address] Care Team Providers Care Furniture Sales Associate Name Role Phone SanchoKurtis mcdaniel Primary Care Provider [phone] Encounter Details Date Type Department Care Team (Latest Contact Info) Description 06/27/2016 12:12 PM EDT - 06/27/2016 11:59 PM EDT Hospital Encounter Hematology [place] [address] Thrombocytopenia Discharge Disposition: Home Social History Tobacco [...] EDT Office [place] [address] Raza Glasgow MD [facility] [place] [address] documented as of this encounter Procedures Procedure Name Priority Date/Time Associated Diagnosis Comments HEMOGRAM STAT 06/27/2016 12:17 PM EDT Thrombocytopenia DIFFERENTIAL, AUTOMATED STAT 06/27/2016 12:17 PM EDT Thrombocytopenia CBC (WITH DIFF) STAT 06/27/2016 12:17 PM EDT Thrombocytopenia documented in this encounter Results * Differential, Automated (06/27/2016 12:17 PM EDT) Neutrophil % 51.2 % [facility] Neutrophil Absolute 2.51 1.50 - 6.30 x10(3)/[facility] Lymph % 37.3 % [facility] Lymphocytes Abs 1.8 1.0 - 3.6 x10(3)/[facility] Monocyte % 7.9 % [facility] Monocyte Abs 0.4 0.2 - 1.0 x10(3)/[facility] Eos % 2.4 % [facility] Eosinophils Abs 0.1 0.0 - 0.5 x10(3)/[facility] Basophil % 0.6 % [facility] Baso Absolute 0.0 0.0 - 0.2 x10(3)/[facility] Immature Gran % 0.60 % [facility] Comment: Immature granulocytes(IG's)percentage and absolute count will include metamyelocytes, myelocytes, and promyelocytes. Blood smears from CBCs yielding IG's will be scanned manually for concordance. If this scan disagrees with the automated IG or if promyelocytes are noted, a manual differential will be performed. Immature Gran Absolute 0.03 0.00 - 0.05 x10(3)/[facility] Blood specimen (specimen) 06/27/2016 12:17 PM EDT 06/27/2016 12:25 PM EDT Narrative Resulting Agency Comment Spec In Lab Maikel Rebolledo MD HEMATOLOGY ORDERABLE S [facility] [place] [address] * (ABNORMAL) Hemogram (06/27/2016 12:17 PM EDT) White Blood Cell 4.9 4.0 - 10.0 x10(3)/[facility] Red Blood Cell 5.78 4.63 - 6.08 x10(6)/[facility] Hemoglobin 16.3 13.7 - 17.5 gm/dL [facility] Hematocrit 47.8 40.0 - 51.0 % [facility] Mean Cell Volume 82.7 79.0 - 92.0 fL [facility] Mean Cell Hemoglobin 28.2 25.6 - 32.2 pg [facility] Mean Cell Hemoglobin Concentration 34.1 32.0 - 36.5 gm/dL [facility] Platelet 87(L) 145 - 370 x10(3)/[facility] RDW Standard Deviation 37.6 35.0 - 46.0 [facility] RDW coefficient of variation 12.5 10.9 - 14.4 % [facility] Mean Platelet Volume 11.3 9.0 - 12.0 [facility] NRBC% auto 0.0 % [facility] NRBC Absolute 0.000 0.000 - 0.012 x10(3)/[facility] Blood specimen (specimen) 06/27/2016 12:17 PM EDT 06/27/2016 12:25 PM EDT Narrative Resulting Agency Comment Spec In Lab Maikel Rebolledo MD HEMATOLOGY ORDERABLE S [facility] [place] [address] documented in this encounter Visit Diagnoses Diagnosis Thrombocytopenia Thrombocytopenia, unspecified documented in this encounter Care Teams Furniture Sales Associate Relationship Specialty Start Date End Date Kurtis Kingsley DO [address] [place] [address] PCP - General 09/27/10 03/22/22 documented as of this encounter
--- OUTSIDE RECORDS SUMMARY | 2024-10-27 11:28 | XMS_ITS | Encounter Summary ---
[facility] [place] [address] Care Team Providers Care Cold Rolling Supervisor Name Role Phone Sancho, Kurtis PIERRE Primary Care Provider [phone] Encounter Details Date Type Department Care Team (Late st Contact Info) Description 11/17/2015 11:00 AM EST Office Visit Hematology [place] [address] Maikel Rebolledo MD [facility] [address] [place] [address] Norma Garrido APRN [facility] [place] [address] Partha Eisenberg MD [facility] DR HEMATOLOGY/[place] [address] Thrombocytopenia Social History Tobacco Use Types Packs/Day [...] 36.7 ??C (98.1 ??F) 11/17/2015 11:[address] Respiratory Rate 16 11/17/2015 11:32 AM EST Oxygen Saturation 99% 11/17/2015 11:32 AM EST Inhaled Oxygen Concentration - - Weight 94 kg (207 lb 3.7 oz) 11/17/2015 11:32 AM EST Height 177 cm (5' 9.69) 11/17/2015 11:32 AM EST Body Mass Index 30 11/17/2015 11:32 AM EST documented in this encounter Progress Notes * Partha Eisenberg - 11/17/2015 11:53 AM EST Images from [...] an episode of blurring of vision while hewas watching TV at night. Vision came back to normal with in 15 minutes; no other similar episodes.He didn't seek any medical attention for this event. [...] to visit. 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 - Smoking: never - Alcohol: rarely - He lives in [place], [place] with his and 3 kids. Family History: - Mother: was tested negative for PLT antigen 1; never had low plt count; - Father: htn, dlp -Siblings: brother and sister: both healthy; His sister also had low plt count at and was transfused; no issues now. Brother is a night baker at [place]. No FH of ITP or other hematological [...] impression, underlying pathogenesis, natural history, prognosis, bleeding complications, threshold ptl count for various scenarios, treatment indications [...] was few years ago. So, we will see him back in a month with CBC. If his plt count is stable at next visit, then, his PCP can monitor his counts periodically, alerting us if there is any change. H.pylori infection has been shown to beassociated with ITP. He gave his stool sample to [facility]. Will get the results from them. If H.pylori s tool antigen is positive, then, I will call him with recommendations for H.pylor treatment. asked me about medical alert bracelet. I discussed with , who agrees that this is a goodidea. I sent an email to patient recommending hm the bracelet. # Headache, an episode of blurring of vision: Both resolved spontaneously. He has an appointment with his contract attorney tomorrow. He is advised to seek medical attention immediately if he has similar episodes again. PLAN to summarize: - RTC in 4 weeks with CBC for f/up for ITP - Will get labs from [facility]. - If he has H.pylori, he needs Abx - Medical alert bracelet for ITP. We reviewed our impression and plans with and all his Qs were answered. I advised him to call us or go to ED if he notices any petechiae, easy bruising, bleeding etc. Pt agreed with the plan. Case was discussed with . Partha Eisenberg MD. Fellow, Hematology/Oncology Pager: [phone] documented in this encounter Plan of Treatment Upcoming Encounters Date Type Department Care Team (Late st Contact Info) Description 01/28/2025 3:30 PM EDT Office [place] [address] Raza Glasgow MD [facility] [place] [address] documented as of this encounter Visit Diagnoses Diagnosis Thrombocytopenia Thrombocytopenia, unspecified documented in this encounter Care Teams Cold Rolling Supervisor Relationship Specialty Start Date End Date Kurtis Kingsley DO [address] [place] [address] PCP - General 09/27/10 03/22/22 documented as of this encounter
--- OUTSIDE RECORDS SUMMARY | 2024-10-27 11:28 | XMS_ITS | Encounter Summary ---
Author Organization [facility] [place] [address] Care Team Providers Care Analytics Senior Manager Name Role Phone SanchoKurtis mcdaniel Primary Care Provider [phone] Encounter Details Date Type Department Care Team (Latest Contact Info) Description 11/01/2016 2:51 PM EST - 11/01/2016 11:59 PM EST Hospital Encounter Hematology [place] [phone] Idiopathic thrombocytopenic purpura Discharge Disposition: Home Social [...] 3:30 PM EDT Office [place] [address] Raza Glasgow MD [facility] [place] [address] Scheduled Orders Name Type Priority Associated Diagnoses Orde r Schedule CBC (with Diff) Lab STAT Idiopathic thrombocytopenic purpura 1 Occurrences starting 11/01/2016 until 11/01/2016 documented as of this encounter Procedures Procedure Name Priority Date/Time Associated Diagnosis Comments HEMOGRAM Routine 11/01/2016 3:12 PM EST DIFFERENTIAL, AUTOMATED Routine 11/01/2016 3:12 PM EST documented in this encounter Results * Differential, Automated (11/01/2016 3:12 PM EST) Neutrophil % 52.7 % [facility] Neutrophil Absolute 3.07 1.70 - 6.10 x10(3)/[facility] Lymph % 36.9 % [facility] Lymphocytes Abs 2.2 0.9 - 3.2 x10(3)/[facility] Monocyte % 7.7 % [facility] Monocyte Abs 0.4 0.3 - 0.9 x10(3)/[facility] Eos % 1.7 % [facility] Eosinophils Abs 0.1 0.0 - 0.4 x10(3)/[facility] Basophil % 0.5 % [facility] Baso Absolute 0.0 0.0 - 0.1 x10(3)/[facility] Immature Gran % 0.50 % [facility] Comment: Immature granulocytes(IG's)percentage and absolute count will include metamyelocytes, myelocytes, and promyelocytes. Blood smears from CBCs yielding IG's will be scanned manually for concordance. If this scan disagrees with the automated IG or if promyelocytes are noted, a manual differential will be performed. Immature Gran Absolute 0.03 0.00 - 0.04 x10(3)/[facility] Blood specimen (specimen) Venous Draw / Unknown 11/01/2016 3:12 PM EST 11/01/2016 3:26 PM EST Narrative Resulting Agency Comment Spec In Lab Maikel Rebolledo MD HEMATOLOGY ORDERABLE S [facility] [place] [address] * (ABNORMAL) Hemogram (11/01/2016 3:12 PM EST) White Blood Cell 5.8 4.0 - 9.5 x10(3)/[facility] Red Blood Cell 5.51 4.58 - 5.54 x10(6)/[facility] Hemoglobin 16.1 13.7 - 16.5 gm/dL [facility] Hematocrit 45.9 40.5 - 48.5 % [facility] Mean Cell Volume 83.3 82.9 - 93.1 [facility] Mean Cell Hemoglobin 29.2 27.5 - 32.1 pg [facility] Mean Cell Hemoglobin Concentration 35.1 32.0 - 35.7 gm/dL [facility] Platelet 92(L) 145 - 357 x10(3)/[facility] RDW Standard Deviation 37.2 36.0 - 45.0 [facility] RDW coefficient of variation 12.3 11.4 - 13.8 % [facility] Mean Platelet Volume 11.7 7.6 - 12.9 [facility] NRBC% auto 0.0 % [facility] NRBC Absolute 0.000 0.000 - 0.000 x10(3)/[facility] Blood specimen (specimen) Venous Draw / Unknown 11/01/2016 3:12 PM EST 11/01/2016 3:26 PM EST Narrative Resulting Agency Comment Spec In Lab Maikel Rebolledo MD [place] [address] documented in this encounter Visit Diagnoses Diagnosis Idiopathic thrombocytopenic purpura Immune thrombocytopenic purpura documented in this encounter Care Teams Analytics Senior Manager Relationship Specialty Start Date End Date Kurtis Kingsley DO [address] [place] [address] PCP - General 09/27/10 03/22/22 documented as of this encounter
--- OUTSIDE RECORDS SUMMARY | 2024-10-27 11:28 | XMS_ITS | Encounter Summary ---
[place] [address] Care Team Providers Care Financial Institution Treasurer Name Role Phone Sancho Kurtis PIERRE Primary Care Provider [phone] Encounter Details Date Type Department Care Team (Latest Contact Info) Description 01/19/2016 10:29 AM EDT - 01/19/2016 11:59 PM EDT Hospital Encounter Hematology [place] [address] ITP (idiopathic thrombocytopenic purpura) Discharge Disposition: Home [...] 3:30 PM EDT Office Visit [place] [address] Raza Glasgow MD [facility] [place] [address] documented as of this encounter Procedures Procedure Name Priority Date/Time Associated Diagnosis Comments HEMOGRAM STAT 01/19/2016 10:36 AM EDT ITP (idiopathic thrombocytopenic purpura) DIFFERENTIAL, AUTOMATED STAT 01/19/2016 10:36 AM EDT ITP (idiopathic thrombocytopenic purpura) CBC (WITH DIFF) STAT 01/19/2016 10:36 AM EDT ITP (idiopathic thrombocytopenic purpura) COMPREHENSIVE METABOLIC PANEL STAT 01/19/2016 10:36 AM EDT ITP (idiopathic thrombocytopenic purpura) documented in this encounter Results * Differential, Automated (01/19/2016 10:36 AM EDT) Neutrophil % 47.1 % [facility] Neutrophil Absolute 2.29 1.50 - 6.30 x10(3)/[facility] LAB[facility]AT[facility] Lymph % 43.2 % [facility] Lymphocytes Abs 2.1 1.0 - 3.6 x10(3)/[facility] LABORATORY Monocyte % 7.2 % [facility] Monocyte Abs 0.4 0.2 - 1.0 x10(3)/[facility] LABORATORY Eos % 1.9 % [facility] Eosinophils Abs 0.1 0.0 - 0.5 x10(3)/[facility] LABORATORY Basophil % 0.4 % [facility] Baso Absolute 0.0 0.0 - 0.2 x10(3)/[facility] LABORATORY Immature Gran % 0.20 % [facility] Comment: Immature granulocytes(IG's)percentage and absolute count will include metamyelocytes, myelocytes, and promyelocytes. Blood smears from CBCs yielding IG's will be scanned manually for concordance. If this scan disagrees with the automated IG or if promyelocytes are noted, a manual differential will be performed. Immature Gran Absolute 0.01 0.00 - 0.05 x10(3)/[facility] LABORATORY Blood specimen (specimen) 01/19/2016 10:36 AM EDT 01/19/2016 10:43 AM EDT Narrative Resulting Agency Comment Spec In Lab Maikel Rebolledo MD HEMATOLOGY ORDERABLE S [facility] [place] [address] * (ABNORMAL) Hemogram (01/19/2016 10:36 AM EDT) White Blood Cell 4.9 4.0 - 10.0 x10(3)/[facility] LABORATORY Red Blood Cell 5.60 4.63 - 6.08 x10(6)/[facility] Hemoglobin 16.6 13.7 - 17.5 gm/dL [facility] Hematocrit 45.8 40.0 - 51.0 % [facility] Mean Cell Volume 81.8 79.0 - 92.0 fL [facility] Mean Cell Hemoglobin 29.6 25.6 - 32.2 pg [facility] Mean Cell Hemoglobin Concentration 36.2 32.0 - 36.5 gm/dL [facility] Platelet 81(L) 145 - 370 x10(3)/[facility] LABORATORY RDW Standard Deviation 38.5 35.0 - 46.0 fL [facility] RDW coefficient of variation 12.9 10.9 - 14.4 % [facility] Mean Platelet Volume 11.3 9.0 - 12.0 fL [facility] Blood specimen (specimen) 01/19/2016 10:36 AM EDT 01/19/2016 10:43 AM EDT Narrative Resulting Agency Comment Spec In Lab Maikel Rebolledo MD HEMATOLOGY ORDERABLE S [facility] [place] [address] * Comprehensive metabolic panel (non-fasting) (01/19/2016 10:36 AM EDT) Glucose 99 65 - 199 mg/dL [facility] Comment:Diabetes: >=200 mg/d L plus symptoms Blood Urea Nitrogen 16 10 - 20 mg/dL [facility] Creatinine 1.21 0.80 - 1.50 mg/dL [facility] Comment: Please note that the pediatric reference intervals supplied above were not validated at [facility]. Results from pediatric patients should be interpreted in conjunction to the patient's age, height and muscle mass. Sodium 138 135 - 145 mmol/L [facility] Potassium 4.3 3.5 - 5.0 mmol/L [facility] Comment: Please note: ??Patients with WBC >100,000 may have falsely elevated Potassium levels. ??For accurate Potassium quantification in these patients send serum separator tube (gold top) for subsequent determinations. ??Contact the Clinical Chemistry Laboratory if there are any questions. Chloride 101 98 - 107 mmol/L [facility] Carbon Dioxide 26 22 - 31 mmol/L [facility] Anion Gap 11 5 - 15 mmol/L [facility] Calcium 9.6 8.5 - 10.5 mg/dL [facility] Protein, Total 7.6 6.1 - 8.0 gm/dL [facility] Albumin 4.9 3.2 - 5.2 gm/dL [facility] Aspartate Aminotransferase 23 0 - 39 unit/L [facility] Alanine Aminotransferase 45 0 - 55 unit/L [facility] Alkaline Phosphatase 76 40 - 120 unit/L [facility] Bilirubin, Total 0.4 0.2 - 1.3 mg/dL [facility] Bilirubin, Direct 0.1 0.0 - 0.3 mg/dL [facility] Est Glomerular Filtration Rate >60 >=60 [facility] Comment: This estimated GFR (eGFR) [...] the following links into your internet browser. [email or web address] Blood specimen (specimen) 01/19/2016 10:36 AM EDT 01/19/2016 10:43 AM EDT Narrative Resulting Agency Comment Spec In Lab Maikel Rebolledo MD CHEMISTRY ORDERABLES [facility] [place] [address] documented in this encounter Visit Diagnoses Diagnosis ITP (idiopathic thrombocytopenic purpura) Immune thrombocytopenic purpura documented in this encounter Care Teams Financial Institution Treasurer Relationship Specialty Start Date End Date Kurtis Kingsley DO [address] [place] [address] PCP - General 09/27/10 03/22/22 documented as of this encounter
--- OUTSIDE RECORDS SUMMARY | 2024-10-27 11:28 | XMS_ITS | Encounter Summary ---
[place] [address] Care Team Providers Care Sales Training Manager Name Role Phone Sancho, Kurtis PIERRE Primary Care Provider [phone] Reason for Visit * Reason Onset Date Comments Results 01/21/2016 Encounter Details Date Type Department Care Team (Late st Contact Info) Description 01/21/2016 Telephone [place]ematology [place] [phone] Belinda Pritchett, RN Results Social History Tobacco Use Types Packs/Day [...] at f/u appt. Request sent to clinical medical secretary to notify patient of lab appt change. RN will continue to follow and coordinate care. documented in this encounter Plan of Treatment Upcoming Encounters Date Type Department Care Team (Late st Contact Info) Description 01/28/2025 3:30 PM EDT Office [place] [address] Raza Glasgow MD [facility] [address] documented as of this encounter Visit Diagnoses Not on filedocumented in this encounter Care Teams Sales Training Manager Relationship Specialty Start Date End Date Kurtis Kingsley DO [address] [place] [address] [address] [place] [address] PCP - General 09/27/10 03/22/22 documented as of this encounter
--- OUTSIDE RECORDS SUMMARY | 2024-10-27 11:28 | XMS_ITS | Encounter Summary ---
Author Organization [facility] [place] [address] Care Team Providers Care Glass Maker Name Role Phone SanchoKurtis mcdaniel Primary Care Provider [phone] Encounter Details Date Type Department Care Team (Latest Contact Info) Description 03/07/2017 2:54 PM EDT - 03/07/2017 11:59 PM EDT Hospital Encounter Hematology [place] [address] Idiopathic thrombocytopenic purpura Discharge Disposition: Home Social [...] 3:30 PM EDT Office [place] [address] Raza Glasgow MD [facility] [place] [address] documented as of this encounter Procedures Procedure Name Priority Date/Time Associated Diagnosis Comments HEMOGRAM Routine 03/07/2017 2:59 PM EDT Idiopathic thrombocytopenic purpura DIFFERENTIAL, AUTOMATED Routine 03/07/2017 2:59 PM EDT Idiopathic thrombocytopenic purpura CBC (WITH DIFF) Routine 03/07/2017 2:59 PM EDT Idiopathic thrombocytopenic purpura documented in this encounter Results * Differential, Automated (03/07/2017 2:59 PM EDT) Neutrophil % 51.0 % [facility] Neutrophil Absolute 2.87 1.70 - 6.10 x10(3)/[facility] LABORATORY Lymph % 39.8 % [facility] Lymphocytes Abs 2.2 0.9 - 3.2 x10(3)/[facility] LABORATORY Monocyte % 5.9 % [facility] Monocyte Abs 0.3 0.3 - 0.9 x10(3)/[facility] LABORATORY Eos % 2.1 % [facility] Eosinophils Abs 0.1 0.0 - 0.4 x10(3)/[facility] LABORATORY Basophil % 0.7 % [facility] Baso Absolute 0.0 0.0 - 0.1 x10(3)/[facility] LABORATORY Immature Gran % 0.50 % [facility] Comment: Immature granulocytes(IG's)percentage and absolute count will include metamyelocytes, myelocytes, and promyelocytes. Blood smears from CBCs yielding IG's will be scanned manually for concordance. If this scan disagrees with the automated IG or if promyelocytes are noted, a manual differential will be performed. Immature Gran Absolute 0.03 0.00 - 0.04 x10(3)/[facility] LABORATORY Blood specimen (specimen) 03/07/2017 2:59 PM EDT 03/07/2017 3:27 PM EDT Narrative Resulting Agency Comment Spec In Lab Maikel Rebolledo MD HEMATOLOGY ORDERABLE S [facility] [place] [address] * (ABNORMAL) Hemogram (03/07/2017 2:59 PM EDT) White Blood Cell 5.6 4.0 - 9.5 x10(3)/mc L [facility] Red Blood Cell 5.62(H) 4.58 - 5.54 x10(6)/mc L [facility] Hemoglobin 16.5 13.7 - 16.5 gm/dL [facility] Hematocrit 46.8 40.5 - 48.5 % [facility] Mean Cell Volume 83.3 82.9 - 93.1 fL [facility] Mean Cell Hemoglobin 29.4 27.5 - 32.1 pg [facility] Mean Cell Hemoglobin Concentration 35.3 32.0 - 35.7 gm/dL [facility] Platelet 86(L) 145 - 357 x10(3)/mc L [facility] RDW Standard Deviation 38.8 36.0 - 45.0 [facility] LABORATORY RDW coefficient of variation 12.8 11.4 - 13.8 % [facility] Mean Platelet Volume 11.2 7.6 - 12.9 [facility] LABORATORY NRBC% auto 0.0 % [facility] NRBC Absolute 0.000 0.000 - 0.000 x10(3)/mc L [facility] Blood specimen (specimen) 03/07/2017 2:59 PM EDT 03/07/2017 3:27 PM EDT Narrative Resulting Agency Comment Spec In Lab Maikel Rebolledo MD HEMATOLOGY ORDERABLE S [facility] [place] [address] documented in this encounter Visit Diagnoses Diagnosis Idiopathic thrombocytopenic purpura Immune thrombocytopenic purpura documented in this encounter Care Teams Glass Maker Relationship Specialty Start Date End Date Kurtis Kingsley DO [address] [place] [address] PCP - General 09/27/10 03/22/22 documented as of this encounter
--- OUTSIDE RECORDS SUMMARY | 2024-10-27 11:28 | XMS_ITS | Encounter Summary ---
[place] [address] Care Team Providers Care Sem Manager Name Role Phone Sancho Kurtis PIERRE Primary Care Provider Reason for Visit * Reason Onset Date Comments Medical Care Coordination 12/01/2015 Janet laboy CBC at [facility] on 12-03-15 Encounter Details Date Type Department Care Team (Late st Contact Info) Description 12/01/2015 Telephone [place]ematology [place] [phone] Sherly Bateman, RN Medical Care Coordination (Arrange CBC at [facility] on 12-03-15) Social History Tobacco Use Types Packs/Day Years [...] Telephone Encounter - Sherly Bateman RN - 12/01/2015 11:55 AM EST RN received eD message from Dr Eisenberg with order for CBC w/diff on 12-03-15 to be drawn at [facility], dx: ITP. She also asked this RN to obtain results of H. pylori that were done at [facility] [place] 2 weeks ago. RN generated above order for CBC and faxed to [facility] lab [phone]. Sent request to obtain H. pyori results to clinical area secretary. RN will track labs. documented in this encounter Plan of Treatment Upcoming Encounters Date Type Department Care Team (Late st Contact Info) Description 01/28/2025 3:30 PM EDT Office [place] [address] Raza Glasgow MD [facility] [place] [address] documented as of this encounter Results * [...] purpura documented in this encounter Care Teams Sem Manager Relationship Specialty Start Date End Date Kurtis Kingsley DO [address] [place] [address] PCP - General 09/27/10 03/22/22 documented as of this encounter
--- NOTE | 2024-10-27 12:46 | DI.RAD_ITS ---
Exam(s) XR LUMBAR SPINE COMPLETE EXAM: XR LUMBAR SPINE COMPLETE CLINICAL HISTORY: M54.41 Lumbago w/sciatica rt side, per insurance rules. TECHNIQUE: 2D digital imaging was performed. Five views. COMPARISON: CR XR LUMBAR SPINE COMPLETE from 08/31/2021 FINDINGS: BONES: No fracture or destructive lesion. Vertebral body heights are maintained. Small endplate os teophytes. Mild facet hypertrophy identified L4-5 and L5-S1. DISKS: Mild narrowing of the L5-S1 disc space. The remaining intervertebral disc spaces are main tained. ALIGNMENT: Lumbar spinal alignment is within normal limits. SOFT TISSUE: Normal. IMPRESSION: Mild degenerative changes of the lower lumbar spine DATA REPOSITORY: RADIATION DOSE DELIVERED:
== END 2024-10-27 11:38 ==
LOC: DI 11:20
PROVIDERS: PCP Family Medicine; Visit Provider Family Medicine
DX: M54.41 Lumbago with sciatica, right side (principal)
CPT/HCPCS: 72110

== ENCOUNTER 2025-02-02 12:20 | Outpatient (CLI) | payer OTHER, SELFPAY ==
--- NOTE | 2025-02-02 08:00 | DI.RAD_ITS ---
Exam(s) XR HIP RT AP LAT ONLY EXAM: XR HIP RT AP LAT ONLY CLINICAL HISTORY: RIGHT HIP PAIN. TECHNIQUE: 2D digital imaging was performed. Two images were obtained. AP and lateral views were ob tained. COMPARISON: CR XR HIP RT AP LAT ONLY from 09/06/2020 CR XR HIP PELVIS ADULT BL from 06/23/2021 FINDINGS: BONES: There are stable post operative changes of a right total hip arthroplasty present. No fractur e or dislocation. JOINTS: The orthopedic hardware is in good position. No evidence of hardware loosening. SOFT TISSUE: Dystrophic calcifications are again seen around the greater trochanter. IMPRESSION: Stable right total hip arthroplasty. DATA REPOSITORY: RADIATION DOSE DELIVERED:
== END 2025-02-02 12:21 | disposition home or self-care (01) ==
LOC: DIORS 12:20
PROVIDERS: PCP Family Medicine; Visit Provider Student in an Organized Health Care Education/Training Program
DX: Z96.641 Presence of right artificial hip joint (principal); Z47.1 Aftercare following joint replacement surgery
CPT/HCPCS: 73502

== ENCOUNTER 2025-03-10 00:31 | Outpatient (CLI) | payer OTHER, SELFPAY ==
--- NOTE | 2025-03-10 08:00 | DI.MRI_ITS ---
Exam(s) MR LOWER JOINT RT WO EXAM: MR LOWER JOINT RT WO CLINICAL HISTORY: rt hip pain, s/p rt total hip replacement, M25.551,z96.641 TECHNIQUE: Multiplanar multisequence MRI of Pelvis was performed COMPARISON: CR XR HIP RT AP LAT ONLY from 02/02/2025 FINDINGS: Bones: There is a right hip prosthesis. There is no fracture or contusion pattern. No bone marrow e reza is seen. Joints: No significant joint effusion is present. The SI joints and symphysis pubis are well maintai kylie. Musculotendinous structures: Is mild edema bilaterally at the gluteus medius insertion on the greate r trochanters. No discrete tendon tear is visible. Intrapelvic structures demonstrate no significan t abnormality. IMPRESSION: No evidence abnormal marrow signal surrounding the right hip prosthesis. Mild edema in the gluteus medius tendon consistent with tendinosis. DATA REPOSITORY:
== END 2025-03-10 00:51 ==
LOC: DI 00:32
PROVIDERS: PCP Family Medicine; Visit Provider Student in an Organized Health Care Education/Training Program
DX: M25.551 Pain in right hip (principal); Z96.641 Presence of right artificial hip joint
CPT/HCPCS: 73721

== ENCOUNTER 2025-07-07 13:19 | Outpatient (CLI) | payer OTHER, SELFPAY ==
--- NOTE | 2025-07-07 11:50 | DI.RAD_ITS ---
Exam(s) XR THORACIC SPINE COMPLETE EXAM: XR THORACIC SPINE COMPLETE CLINICAL HISTORY: mid back pain,m54.9. TECHNIQUE: 2D digital imaging was performed. Three views. COMPARISON: CT CT CHEST PE CTA from 07/27/2022 FINDINGS: BONES: There is no fracture or destructive lesion. The vertebral bodies and posterior elements are unremarkable. ALIGNMENT: Within normal limits. DISKS: Interverebral disc spaces are maintained. SOFT TISSUE: Visualized lungs are clear. IMPRESSION: Unremarkable radiographs of the thoracic spine. DATA REPOSITORY: RADIATION DOSE DELIVERED:
--- NOTE | 2025-07-07 11:50 | DI.RAD_ITS ---
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 TECHNIQUE: 2D digital imaging was performed. Five views. COMPARISON: No exams were available for comparison FINDINGS: BONES: No acute fracture is present. No bony destructive lesion is seen. Bone island in medial humeral head. JOINTS: No dislocation present. The glenohumeral joint space is maintained. Minimal mild spurring at the glenoid. No significant spurring at the AC joint. SOFT TISSUE: Normal calcifications above the humeral head consistent with calcific tendinosis. IMPRESSION: Calcific tendinosis. Mild degenerative changes of the glenohumeral joint. DATA REPOSITORY: RADIATION DOSE DELIVERED:
== END 2025-07-07 13:39 ==
LOC: DI 13:19
PROVIDERS: PCP Family Medicine; Visit Provider Family Medicine
DX: M75.31 Calcific tendinitis of right shoulder (principal); M54.9 Dorsalgia, unspecified
CPT/HCPCS: 72072; 73030

== ENCOUNTER 2025-09-25 00:18 | Outpatient (CLI) | payer OTHER, SELFPAY ==
[2025-09-25 13:44] LABS: Cholesterol 143 mg/dL (<200); HDL Cholesterol 35 mg/dL (>40)
[2025-09-25 18:41] LABS: PSA, Screening 0.6 ng/mL (<=3.5)
== END 2025-09-25 00:19 | disposition home or self-care (01) ==
LOC: LBO 00:18
PROVIDERS: PCP Family Medicine; Visit Provider Family Medicine
DX: Z12.5 Encounter for screening for malignant neoplasm of prostate (principal); Z13.6 Encounter for screening for cardiovascular disorders
CPT/HCPCS: 36415; 80061; 84153